=== PATIENT | male | born 1945 | race Caucasian/White ===

== ENCOUNTER → 2016-12-29 | Outpatient (CLI) | payer MEDICARE ==
[~2016-12-29] MED LIST: CPR500T PO; HYDR-3583 PO; HYDR-707 PO; METR500T PO; MINO50CA2 PO; SIMV20TA3 PO
--- OUTSIDE RECORDS SUMMARY | 2016-12-29 11:11 | XMS REPORT | Continuity of Care Document ---
Author Author [facility] Organization [facility] Address Unknown Phone Unavailable Care Team Providers Care Motion Picture Commentator Name Role Phone AYDIN HUSAIN PP Insurance Providers Payer Name Policy Number Subscriber Name Relationship s Medicare [id number] Jhony Chi Tu 01 Self / Same As Patient Advance Directives Directive Response Recorded Date Advance Directives N 04/09/13 5:45pm Health Care Power of Laboratory Immunologist N 04/09/13 5:45pm Organ Donor N 04/09/13 5:45pm Problems No Known Problems or Medical conditions. Family History History Response Recorded Date/Time Hx Family Cancer N 04/09/13 5:45pm Social History History Response Recorded Date/Time Alcohol Use Denies Use 04/09/13 5:45pm Recreational Drug Use N 04/09/13 5:45pm Recent Foreign Travel N 04/09/13 5:45pm Hospitalization with Isolation Denies 5:45pm Allergies, Adverse Reactions, Alerts Allergen Type Severity Reaction Last Updated No Known Drug Allergies 04/09/13 Medications Medication Dose Units Route Sig Qty Days Acetaminophen/Hydrocodone Bitart (Lortab 5-500 Tablet) 1 - 2 Each PO Q 4 - 6 HR PRN Simvastatin 20 Mg PO HS Minocycline Hcl 50 Mg PO HS Immunizations Name Given Type Date of Pneumonia Vaccine 09/19/12 H Response Recorded Date/Time Status not known Unknown Results Test Date Result Interp. Ref. Range Alanine Aminotransferase (ALT/SGPT) April 13, 2013 5:40am 25 U/L L 30-65 Albumin April 13, 2013 5:40am 1.8 G/DL L 3.4-5.0 Alkaline Phosphatase April 13, 2013 5:40am 76 U/L N 50-136 Aspartate Amino Transf (AST/SGOT) April 13, 2013 5:40am 29 U/L N 15-37 BUN/Creatinine Ratio April 17, 2013 5:50am 20 - Basophils # (Auto) April 10, 2013 5:05am 0.0 10^3/uL N 0.0-0.1 Basophils (%) (Auto) April 10, 2013 5:05am 0 % N 0-10 Blood Urea Nitrogen April 17, 2013 5:50am 16 MG/DL N 7-18 Calcium Level April 17, 2013 5:50am 7.8 MG /DL L 8.5-10.1 Carbon Dioxide Level April 17, 2013 5:50am 24 MMOL/L N 21-32 Chloride Level April 17, 2013 5:50am 104 MMOL/L N 101-110 Creatinine April 17, 2013 5:50am 0.8 MG/ DL N 0.6-1.3 Eosinophils # (Auto) April 10, 2013 5:05am 0.2 10^3/uL N 0.0-0.3 Eosinophils (%) (Auto) April 10, 2013 5:05am 2 % N 0-10 Glucose Level April 17, 2013 5:50am 127 MG /DL H 74-106 Hematocrit April 17, 2013 5:50am 33 % L 40-54 Hemoglobin April 17, 2013 5:50am 11.3 G/ DL L 13.3-17.7 Lymphocytes # (Auto) April 10, 2013 5:05am 2.3 X 10^3 N 1.0-4.0 Lymphocytes (%) (Auto) April 10, 2013 5:05am 27 % N 12-44 Magnesium Level April 16, 2013 5:45am 2.0 MG/DL N 1.8-2.4 Mean Corpuscular Hemoglobin April 17, 2013 5:50am 30 PG N 25-34 Mean Corpuscular Hemoglobin Concent April 17, 2013 5:50am 34 G/DL N 32-36 Mean Corpuscular Volume April 17, 2013 5:50am 87 FL N 80-99 Mean Platelet Volume April 17, 2013 5:50am 9.8 FL N 7.4-10.4 Monocytes # (Auto) April 10, 2013 5:05am 0.9 X 10^3 N 0.0-1.0 Monocytes (%) (Auto) April 10, 2013 5:05am 10 % N 0-12 Neutrophils # (Auto) April 10, 2013 5:05am 5.2 X 10^3 N 1.8-7.8 Neutrophils (%) (Auto) April 10, 2013 5:05am 61 % N 42-75 Phosphorus Level April 16, 2013 5:45am 3.1 MG/DL N 2.5-4.9 Platelet Count April 17, 2013 5:50am 214 10^3/uL N 130-400 Potassium Level April 17, 2013 5:50am 3.7 MMOL/L N 3.6-5.0 Prealbumin April 16, 2013 5:45am 13.9 MG/ DL L 18.0-35.7 Red Blood Count April 17, 2013 5:50am 3.82 10^6/uL L 4.35-5.85 Red Cell Distribution Width April 17, 2013 5:50am 14.6 % H 10.0-14.5 Sodium Level April 17, 2013 5:50am 137 MMOL/L N 135-145 Total Bilirubin April 13, 2013 5:40am 0.6 MG/DL N 0.0-1.0 Total Protein April 13, 2013 5:40am 4.8 G/ DL L 6.4-8.2 Triglycerides Level April 16, 2013 5:45am 101 MG/DL N 30.0-150.0 Urine Bacteria April 09, 2013 10:00pm NEGATIVE /HPF - Urine Bilirubin April 09, 2013 10:00pm NEGATIVE - Urine Casts April 09, 2013 10:00pm NONE / LPF - Urine Clarity April 09, 2013 10:00pm CLEAR - Urine Color April 09, 2013 10:00pm YELLOW - Urine Crystals April 09, 2013 10:00pm NONE /LPF - Urine Culture Indicated April 09, 2013 10:00pm NO - Urine Glucose (UA) April 09, 2013 10:00pm 1 + H - Urine Ketones April 09, 2013 10:00pm 3+ H - Urine Leukocyte Esterase April 09, 2013 10:00pm NEGATIVE - Urine Mucus April 09, 2013 10:00pm NEGATIVE /LPF - Urine Nitrite April 09, 2013 10:00pm NEGATIVE - Urine Protein April 09, 2013 10:00pm NEGATIVE - Urine RBC April 09, 2013 10:00pm NONE / HPF - Urine Specific [place] April 09, 2013 10:00pm 1.020 - Urine Squamous Epithelial Cells April 09, 2013 10:00pm 0-2 /HPF - Urine Urobilinogen April 09, 2013 10:00pm NORMAL MG/DL - Urine WBC April 09, 2013 10:00pm RARE / HPF - Urine pH April 09, 2013 10:00pm 5 - White Blood Count April 17, 2013 5:50am 9.2 10^3/uL N 4.3-11.0 Glucometer April 17, 2013 5:30pm 114 MG/ DL H 70-110 Estimat Glomerular Filtration Rate April 09, 2013 11:49am 60 - Urine RBC (Auto) April 09, 2013 10:00pm TRACE H - Procedures Procedure Code Date OPEN AND OTHER SIGMOIDECTOMY 45.76 VENOUS CATHETERIZATION NEC 38.93 MRSA Screen 04/11/13 Encounters Encounter Location Date/Time Admitted Inpatient [facility] 2:10pm
--- NOTE | 2016-12-29 16:54 | Diagnostic Imaging Report ---
PA and lateral views of the chest. INDICATION: Cough and shortness of breath. FINDINGS: There is prominent pericardial fat-pad on the right side. The lungs otherwise appear clear. The heart size is normal. No effusion or pneumothorax. Thickening of the anterior longitudinal ligament in the mid to lower thoracic spine seen. IMPRESSION: No acute process. Dictated by: Dictated on workstation # [id number]
== END ==
LOC: RAD 11:07
PROVIDERS: ATTEND Family Medicine
DX: R05 Cough (principal)
CPT/HCPCS: 71020

== ENCOUNTER → 2018-07-03 | Outpatient (CLI) | payer MEDICARE ==
--- NOTE | 2018-07-03 15:27 | Diagnostic Imaging Report ---
INDICATION: Chest discomfort. TIME OF EXAM: 3:24 PM Correlation is made with prior study from 12/29/2016. FINDINGS: The heart size is normal. The pulmonary vascularity is unremarkable. The lungs are clear. No infiltrate, effusion or pneumothorax is detected. IMPRESSION: No acute cardiopulmonary process is detected. Dictated by: Dictated on workstation # [id number]
== END ==
LOC: CARD 14:45
PROVIDERS: ATTEND Internal Medicine Rheumatology
DX: I20.8 Other forms of angina pectoris (principal)
CPT/HCPCS: 71046; 93005

== ENCOUNTER → 2018-08-15 | Outpatient (CLI) | payer MEDICARE, OTHER | LOC: CARD 11:09 | PROVIDERS: ATTEND Internal Medicine Interventional Cardiology | DX: R94.31 Abnormal electrocardiogram [ECG] [EKG] (principal); M19.90 Unspecified osteoarthritis, unspecified site; R07.9 Chest pain, unspecified; E66.9 Obesity, unspecified; R06.02 Shortness of breath | CPT/HCPCS: 93306 ==

== ENCOUNTER → 2018-08-22 | Outpatient (CLI) | payer MEDICARE, OTHER ==
[~2018-08-22] MED LIST changes: +ASPI-586 PO; +BETA15CR37 TP; +CATHETER FLUSH 10 ML SYR IV PRN; +FOLI1TAB24 PO; +GENTAMICIN CREAM TP; +METH2.5T PO; +NYST15CR TP; +OMG1KC PO; +REGADENOSON 0.4 MG/5 ML SYR (LEXISCAN) IV ONE
[2018-08-22 09:15] VITALS: BP 160/81
[2018-08-22 09:24] VITALS: BP 126/69
[2018-08-22 13:37] VITALS: BP 166/79
--- NOTE | 2018-08-22 13:37 | Cardiology Stress Test Report ---
Stress Test Report Type of NM Stress Test: Test Type: LEXISCAN 0.4MG/5ML Date of Procedure/Referring: Date of Procedure: Aug 22, 2018 PCP Jessica Muñiz MD Admitting Physician Deny Chilel MD Indications: Abnormal EKG, chest pain, shortness of breath Baseline Heart Rate: 68 Baseline Blood Pressure: Blood Pressure Systolic: 166 Blood Pressure Diastolic: 79 Baseline EKG: Baseline EKG: sinus rhythm Summary & Conclusion: Summary: The patient was brought to the stress lab after informed consent was taken. Stress test was performed according to the Lexiscan protocol. 0.4 mg of IV Lexiscan was given. Low-grade exercise was performed. Baseline EKG showed sinus rhythm at 68 BPM. Initial blood pressure was 166/79 mmHg. Maximum heart rate was 88 bpm and blood pressure 158/84 mmHg. Patient did not have any chest pain, arrhythmias or ST segment changes during the stress test. 10.81 mCi of Myoview were given for rest imaging and 30.6 mCi of Myoview given for stress imaging. Transient ischemic dilatation score 1.07, EF 50 percent. Normal wall motion. Large, moderate intensity anterior reversible defect. Fixed apical defect with reversible apical defect. SSS 27, SRS 9, SDS 15. Conclusion: Pharmacological stress test was negative for ischemia. Normal LV function with no wall motion abnormalities. Evidence of anterior ischemia. 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 Coronary angiography is recommended. Jessica MUÑIZ MD Aug 22, 2018 1:37 pm
== END ==
LOC: CARD 07:11
PROVIDERS: ATTEND Internal Medicine Interventional Cardiology
DX: R94.31 Abnormal electrocardiogram [ECG] [EKG] (principal); R07.9 Chest pain, unspecified; R06.02 Shortness of breath; M19.91 Primary osteoarthritis, unspecified site; E66.9 Obesity, unspecified
CPT/HCPCS: 78452; 93017

== ENCOUNTER 2018-08-26 11:53 | Day surgery (SDC) | payer MEDICARE, OTHER ==
[2018-08-26] VITALS (7 sets, daily range): BP systolic 158–169; BP diastolic 73–97
[~2018-08-26] VITALS: Ht 182.9 cm; Wt 122.0 kg
[~2018-08-26 11:53] MED LIST changes: -ASPI-586 PO; -BETA15CR37 TP; -CATHETER FLUSH 10 ML SYR IV PRN; -FOLI1TAB24 PO; -GENTAMICIN CREAM TP; -METH2.5T PO; -NYST15CR TP; -OMG1KC PO; -REGADENOSON 0.4 MG/5 ML SYR (LEXISCAN) IV ONE
[2018-08-26] MEDS ORDERED: HEParin (CATH LAB) 2,000 ML IV ONE (12:10)
[2018-08-26] MEDS ORDERED: LIDOCAINE 1% INJ 20 ML 20 ML VIAL ONE (12:10)
[2018-08-26] MEDS ORDERED: NS IV 1000 ML 1,000 ML ONE (12:10)
[2018-08-26] MEDS ORDERED: NS IV 1000 ML 1,000 ML IV SCH ×2 (13:20→15:52)
[2018-08-26 13:31] LABS: HEMOGLOBIN 12.7 G/DL (13.3-17.7); MEAN PLATELET VOLUME 9.7 FL (7.4-10.4); RED BLOOD COUNT 3.81 10^6/uL (4.35-5.85); RED CELL DISTRIBUTION WIDTH 14.4 % (10.0-14.5); WHITE BLOOD COUNT 4.8 10^3/uL (4.3-11.0)
[2018-08-26 13:33] LABS: PROTHROMBIN TIME PATIENT 13.7 SEC (12.2-14.7)
[2018-08-26] MEDS ORDERED: FLU QUADRIvalent (5+ YOA) 2018-2019 (AFLURIA) 0.5 ML IM ONE (13:45)
[2018-08-26 13:46] LABS: ALANINE AMINOTRANSFERASE 23 U/L (0-55); ALBUMIN 3.8 GM/DL (3.2-4.5); ALKALINE PHOSPHATASE 68 U/L (40-136); BILIRUBIN,TOTAL 0.8 MG/DL (0.1-1.0); BUN/CREATININE RATIO 16; CALCIUM 9.1 MG/DL (8.5-10.1); CARBON DIOXIDE 22 MMOL/L (21-32); CHLORIDE 105 MMOL/L (98-107); CREATININE SERUM 0.87 MG/DL (0.60-1.30); GFR ESTIMATED > 60; GLUCOSE 87 MG/DL (70-105); POTASSIUM 3.9 MMOL/L (3.6-5.0); SODIUM 137 MMOL/L (135-145); TOTAL PROTEIN 7.4 GM/DL (6.4-8.2)
[2018-08-26] MEDS ORDERED: FOLI1TAB24 PO (14:05)
[2018-08-26] MEDS ORDERED: OMG1KC PO (14:05)
[2018-08-26] MEDS ORDERED: BETA15CR37 TP (14:07)
[2018-08-26] MEDS ORDERED: METH2.5T PO (14:07)
[2018-08-26] MEDS ORDERED: fentaNYL INJECTION 100 MCG/2 ML AMP ONE (14:08)
[2018-08-26] MEDS ORDERED: ASPI-586 PO (14:08)
[2018-08-26] MEDS ORDERED: HEParin 1000 UNIT/ML (10ML VIAL) FOR BOLUS ONE (14:08)
[2018-08-26] MEDS ORDERED: MIDAZOLAM 5 MG/5 ML (VERSED) VIAL ONE (14:08)
[2018-08-26] MEDS ORDERED: NYST15CR TP (14:15)
[2018-08-26] MEDS ORDERED: GENTAMICIN CREAM TP (14:16)
[2018-08-26] MEDS ORDERED: VERAPAMIL 5 MG/2 ML (CALAN) VIAL IV ONE (14:23)
[2018-08-26] MEDS ORDERED: NITRO DRIP 25000 MCG/D5W 250 ML IV ONE (14:23)
--- NOTE | 2018-08-26 15:05 | Cardiac Procedure Note-CS/ASA ---
Pre-Procedure Note Pre-Op Procedure Note H&P Reviewed The H&P was reviewed, patient examined and no changes noted. Date H&P Reviewed: Aug 26, 2018 Time H&P Reviewed: 15:05 Conscious Sedation Pre-Proced Time 15:05 ASA Score 3 For ASA 3 and 4: Consider anesthesia and medical clearance. Also, for patients with a history of failed moderate sedation consider anesthesia. Airway Lungs Heart ASA score ASA 1: a normal healthy patient ASA 2: a patient with a mild systemic disease (mid diabetes, controlled hypertension, obesity ASA 3: a patient with a severe systemic disease that limits activity (angina , COPD, prior Myocardial infarction) ASA 4: a patient with an incapacitating disease that is a constant threat to life (CHF, renal failure) ASA 5: a moribund patient not expected to survive 24 hrs. (ruptured aneurysm) ASA 6: a declared brain patient whose organs are being harvested. For emergent operations, add the letter E after the classification Mallampati Classification Grade 1 Sedation Plan Analgesia, Amnesia, Plan communicated to team members, Discussed options with patient/fam, Discussed risks with patient/fam The patient is an appropriate candidate to undergo the planned procedure, sedation, and anesthesia. The patient immediately re-assessed prior to indication. Jessica PNIA MD Aug 26, 2018 3:05 pm
--- NOTE | 2018-08-26 15:51 | Coronary Angiography Report ---
Coronary Angiography Report DATE OF PROCEDURE: 08/26/18 INDICATION: Chest pain, abnormal nuclear stress test. PREOPERATIVE DIAGNOSIS: Chest pain, abnormal nuclear stress test. POSTOPERATIVE DIAGNOSIS: Severe distal left main disease, three-vessel disease. HISTORY: This is a 73-year-old gentleman who has arthritis. He presented with typical chest pain. Nuclear stress test was abnormal. Therefore, the patient was scheduled for coronary angiography. PROCEDURES PERFORMED: 1.Coronary angiography. 2.Left heart catheterization. 3. Aortic arch angiogram. COMPLICATIONS: None. SPECIMENS: None. ESTIMATED BLOOD LOSS: 10 mL ANESTHESIA: Conscious sedation ANTICOAGULATION: IV heparin CONTRAST: 109 mL. FLUOROSCOPY: 10.5 minutes. FLOUROSCOPY DOSE: 1231 mgy. PROCEDURE DETAILS: The patient is a 73 male and was brought to the laborer [facility] after informed consent was taken. All the risks and complications were explained in detail; this included the risk of bleeding, vascular damage, stroke , CO and even . The patient was draped and prepped in the usual sterile fashion. Access was gained in the right radial artery with a 6 [place] sheath. Coronary angiography and left heart catheterization was performed with the [place] catheter. However we could not engage the left coronary system due to significant tortuosity. A JL 4 catheter also did not work. We were finally able to engage with an EBU 3.5 guide catheter. FINDINGS: 1.Left main: Severe distal left main disease. Stenosis severity 99 percent. 2.LAD: Distal left main disease also includes the ostium of the LAD. Severe stenosis 90 percent and above. Moderate to diffuse disease distally. 3.Left circumflex artery: Severe ostial stenosis. Stenosis severity 95 percent. Diffuse disease distally. 4.RCA: Moderate to severe mid RCA stenosis. Stenosis severity 70-80 percent. Mild diffuse disease distally. [id number]-[id number] collaterals. 5.Left heart catheterization: LV 127/15 mmHg, aortic pressure 106/64 mmHg. LVEDP 27 mmHg. Normal LV function with no wall motion abnormalities. No gradient across the aortic valve. 6. Aortic arch angiogram: No evidence of aneurysm or dissection. Patent proximal segments of the great arteries including brachycephalic artery, left common carotid artery, left subclavian artery. CONCLUSIONS: Severe distal left main disease with three-vessel severe CAD. Normal LV function with no diabetes. CABG is recommended. I have spoken to Dr. Barraza at [facility] and will arrange for inpatient transfer. I will start the patient on IV heparin infusion. Susan Muñiz MD, FACP, FACC, [facility] Interventional Cardiology Jessica MUÑIZ MD Aug 26, 2018 3:51 pm
--- NOTE | 2018-08-26 15:59 | Cardiology Discharge Summary ---
Diagnosis/Chief Complaint Date of Admission 08/26/2018 Date of Discharge 08/26/2018 Admission Diagnosis Chest pain, abnormal nuclear stress test. Final/Discharge Diagnosis Severe distal left main disease with three-vessel severe CAD Chief Complaint/HPI Chief Complaint/HPI This is a 73-year-old gentleman who has arthritis. He presented with typical chest pain. Nuclear stress test was abnormal. Therefore, the patient was scheduled for coronary angiography. Discharge Summary Procedures Coronary angiography showed severe distal left main disease which also involved the ostia of the LAD and left circumflex artery. Stenosis severity over 95 percent. Diffuse disease noted distally in the LAD and circumflex artery. RCA has moderate to severe mid stenosis. Stenosis severity 70-80 percent. Normal LV function with mildly elevated LVEDP. Discharge Physical Examination Unremarkable. Hospital Course Unremarkable. Pending Labs Laboratory Tests 08/26/18 13:01: White Blood Count 4.8, Red Blood Count 3.81, Hemoglobin 12.7, Hematocrit 36, Mean Corpuscular Volume 94, Mean Corpuscular Hemoglobin 33, Mean Corpuscular Hemoglobin Concent 36, Red Cell Distribution Width 14.4, Platelet Count 80, Mean Platelet Volume 9.7, Prothrombin Time 13.7, INR Comment 1.0, Activated Partial Thromboplast Time 31, Sodium Level 137, Potassium Level 3.9, Chloride Level 105, Carbon Dioxide Level 22, Anion Gap 10, Blood Urea Nitrogen 14, Creatinine 0.87, Estimat Glomerular Filtration Rate > 60, BUN/Creatinine Ratio 16, Glucose Level 87, Calcium Level 9.1, Corrected Calcium 9.3, Total Bilirubin 0.8, Aspartate Amino Transf (AST/SGOT) 20, Alanine Aminotransferase (ALT/SGPT) 23, Alkaline Phosphatase 68, Total Protein 7.4, Albumin 3.8 Discussion & Recommendations Discussion CABG is recommended. I have discussed with Dr. Corwin Barraza at [facility] and will arrange an inpatient transfer; he has accepted the patient for transfer. I will start the patient on IV heparin infusion. Follow up appt.: Dr. Muñiz after CABG. Dicharge Diet: Cardiac Diet Activity as Tolerated: Yes Home Medications Reviewed patient Home Medication Reconciliation performed by pharmacy medication reconciliations voip network technician and/or nursing. Patients Allergies have been reviewed. Discharge Home Medications: Reviewed and agree with Discharge Medication list on patient's Discharge Instruction sheet Condition at discharge Stable Instructions to patient/family CABG is recommended. Inpatient transfer to [facility]. Jessica MUÑIZ MD Aug 26, 2018 3:59 pm
[2018-08-26] MEDS ORDERED: PATIENT MAY USE OWN MEDS, ALL PO SCH (16:00)
[2018-08-26] MEDS ORDERED: HEParin 1000 UNIT/ML (10ML VIAL) FOR BOLUS IV SCH (16:00)
[2018-08-26] MEDS ORDERED: HEParin DRIP 25000 UNIT/500ML 500 ML IV ONE (16:32)
[2018-08-27] MEDS ORDERED: ASPIRIN E.C. 81 MG (ECOTRIN) TAB PO SCH (09:00)
== END 2018-08-26 18:00 | disposition short-term general hospital (02) ==
LOC: CATH 11:53
PROVIDERS: ATTEND Internal Medicine Interventional Cardiology
DX: I25.10 Atherosclerotic heart disease of native coronary artery without angina pectoris (principal); R07.89 Other chest pain; Z82.49 Family history of ischemic heart disease and other diseases of the circulatory system; E66.01 Morbid (severe) obesity due to excess calories; L40.50 Arthropathic psoriasis, unspecified; R06.02 Shortness of breath
CPT/HCPCS: 36415; 80053; 85027; 85610; 85730; 87081; 93458

== ENCOUNTER 2018-09-04 11:45 | Inpatient (IN) | payer MEDICARE, OTHER ==
[~2018-09-04] VITALS: Ht 182.9 cm; Wt 118.6 kg
[~2018-09-04 11:45] MED LIST changes: +ASPI-586 PO; +BETA15CR37 TP; +FOLI1TAB24 PO; +GENTAMICIN CREAM TP; +METH2.5T PO; +NYST15CR TP; +OMG1KC PO
[2018-09-04 13:30] VITALS: BP 109/59
[2018-09-04] MEDS ORDERED: FOLIC ACID 1 MG TAB PO NR (14:30)
[2018-09-04] MEDS ORDERED: HYDROcodone/APAP 5 MG/325 MG (LORTAB) TAB PO PRN (14:30)
--- NOTE | 2018-09-04 15:31 | Occupational Therapy Eval ---
OT Evaluation-General/PLF Medical Diagnosis Admission Date Sep 04, 2018 at 13:33 Medical Diagnosis: Toxic myopathy Onset Date: Aug 26, 2018 Therapy Diagnosis Therapy Diagnosis: decr act poly, decr funct mob, weakness, decr funct use UEs Height/Weight Height (Feet): 6 Height (Inches): 0.00 Weight (Pounds): 269 Weight (Ounces): 0.0 Precautions Comments Meticulous sternal precautions. No driving. No heavy lifting or vigorous activity with arms for 8 weeks. Referral Physician: Donny Referral Reason: Evaluation/Treatment Medical History Pertinent Medical History: Atrial Fib, Arthritis, CAD, HTN Additional Medical History Inflammatory arthritis. Psoriatic arthritis. Psoriasis. Restless legs. Colectomy (colostomy reversal). Hernia repair Immunosuppressed Current History Pt admitted to ED at and transferred to [facility] in [place] for CABGx3 on . Reviewed History: Yes Social History Home: Single Level Current Living Status: Alone Entry Into Home: Stairs With Railing Steps Into Home: 3 ADL-Prior Level of Function Functional [place] Measure 0=Not Assessed/NA 4=Minimal Assistance 1=Total Assistance 5=Supervision or Setup 2=Maximal Assistance 6=Modified [place] 3=Moderate Assistance 7=Complete [place] ADL PLOF Comments Pt reported that he was able to manage all of his basic ADLs prior to admission (dressing, bathing, grooming, dressing, eating). He and his girlfriend share in home tasks such as cleaning and cooking and she sets up his medications. He said he has no issues with memory at home and she concurred. 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 He also care for her Allegra Cain. DME/Equipment: Tub/Shower OT Current Status Subjective Pt seen in room, up in transport chair, agreeable to OT. Pain rated 4.10 in incision area on chest. Appearance Alert, cooperative Mental Status/Objective Patient Orientation: Person, Place, Time, Situation Current Glasses/Contacts: Yes Hearing Aids: No Dentures/Partials: Yes (partials) Hand Dominance: Right Upper Extremity ROM Shoulder range assessed to approx 90 degrees only due to sternal precautions. Elbows and distal WFL Upper Extremity Sensation Pt reported that it feels like he has bands around his wrists Upper Extremity Strength Strength grossly 4/5 at elbows and distal bilaterally. Shoulder strength not assessed Edema: No UE edema noted ADL-Treatment ADL-Current He needed min/CGA to get up from transport chair and walk a few steps to w/c, holding cardiac pillow on chest and following sternal precautions for sitting ( not reaching back with arms). He was able to use a urinal with setup and help emptying it. He got up from w/c with min-mod assist and walked with min assist to bathroom. He stated that he took himself to the bathroom prior to discharge from [facility]. He was able to get on/off BSC over toilet with CGA. He is tall and would not have been able to get off tall toilet and would not have been able to use grab bar due to sternal precautions. He managed clothing and hygiene with CGA while standing and walked back to w/c with CGA. He declined to bathe today and said that he had already shaved. Donned shirt with min assist to pull it down and mod assist getting pants on over feet and pulling them up. Unable to do slipper socks himself. He reported no difficulty opening packages for eating and with feeding himself but said he has no appetite. Care transferred to PT. Functional [place] Measure 0=Not Assessed/NA 4=Minimal Assistance 1=Total Assistance 5=Supervision or Setup 2=Maximal Assistance 6=Modified [place] 3=Moderate Assistance 7=Complete IndependenceIRFPAI Quality Coding Scale 6 Independent with activity with or without an assistive device 5 Patient requires set up or clean up by helper. Patient completes activity by themselves 4 Supervision or touching assist (CGA). [place] provide cues , steadying assist 3 The helper provides less than half the effort to complete the activity 2 The helper provides more than half the effort to complete the activity 1 Dependent. The helper does all the effort to complete an activity 7 Patient refused to complete or attempt activity 9 The patient did not perform the activity before the current illness or injury 88 Not attempted due to Medical conditions or safety concerns Eating (FIM): 6 (Always eats with dentures in. ABle to open packages, feed himself, get a drink without assistance) Eating (QC): 6 Upper Body Dressing (FIM): 4 (Min assist to pull shirt down) Upper Body Dressing (QC): 3 Lower Body Dressing (FIM): 2 (Mod assist to get pants on over feet but he was able to pull them up over hips CGA. Unable to manage slipper socks on/off) Lower Body Dressing (QC): 2 (Help to get pants on over feet but he could pull them up, but with CGA) On/Off Footwear (QC): 1 (Unable to manage socks on/off) Toileting (FIM): 4 (CGA for clothing management and hygiene. Used BSC over toilet ) Toileting Hygiene (QC): 4 Toilet/Commode Transfer (FIM): 4 (CGA getting on/off BSC over toilet) Toilet Transfer (QC): 4 Education OT Patient Education: Instructions to caregiver, Modified ADL techniques, Purpose of tx/functional activities, Rehab process, Safety issues, Transfer techniques Teaching Recipient: Patient, Significant Other Teaching Methods: Demonstration, Discussion Response to Teaching: Verbalize Understanding, Return Demonstration, Reinforcement Needed OT Short Term Goals Short Term Goals Time Frame: Sep 11, 2018 Upper Body Dressing(FIM): 5 Lower Body Dressing(FIM): 5 Toileting(FIM): 5 Toilet/Commode Transfer(FIM): 5 Additional Short Term Goals: 1-Demonstrate ADL Tasks, 2-Verbalize Understanding , 3-ImproveStrength/Deb 1=Demonstrate adherence to instructed precautions during ADL tasks. 2=Patient will verbalize/demonstrate understanding of assistive devices/ modifications for ADL. 3=Patient will improve strength/tolerance for activity to enable patient to perform ADL's. OT Usp Goals Usp Goals Time Frame: Sep 25, 2018 Eating (FIM): 6 Eating (QC): 6 Groomin Oral Hygiene (QC): 6 Bathing(FIM): 6 Shower/Bathe Self (QC): 6 Upper Body Dressing(FIM): 6 Upper Body Dressing (QC): 6 Lower Body Dressing(FIM): 6 Lower Body Dressing (QC): 6 On/Off Footwear (QC): 6 Toileting(FIM): 6 Toileting Hygiene (QC): 6 Toilet/Commode Transfer(FIM): 6 Toilet/Commode Transfer (QC): 6 Tub Transfer(FIM): 6 Shower Transfer(FIM): 6 Additional Goals: 1-Demonstrate ADL Tasks, 2-Verbalize Understanding, 3- ImproveStrength/Deb 1=Demonstrate adherence to instructed precautions during ADL tasks. 2=Patient will verbalize/demonstrate understanding of assistive devices/ modifications for ADL. 3=Patient will improve strength/tolerance for activity to enable patient to perform ADL's. OT Education/Plan Problem List/Assessment Assessment: Decreased Activ Tolerance, Decreased UE Strength, Dependent Transfers, Impaired Self-Care Skills, Restricted Funct UE ROM Pt would benefit from skilled oT to increase his independence in basic self care to allow him to safely return to his home after cardiac surgery Discharge Recommendations Plan/Recommendations: Continue POC Therapy D/C Recommendations: Home w/ Family Support, Occupational Therapy Home Care Treatment Plan/Plan of Care Treatment,Training & Education: Yes Patient would benefit from OT for education, treatment and training to promote independence in ADL's, mobility, safety and/or upper extremity function for ADL' s. Plan of Care: ADL Retraining, Functional Mobility, Group Exercise/Act as Ind ( education, exercise, activity tolerance, functional activities, socialization), UE Funct Exercise/Act, UE Neuromus Re-Ed/Coord, OTHER (energy conservation educaiton) Treatment Duration: Sep 25, 2018 Frequency: At least 5 of 7 days/Wk (IRF) Estimated Hrs Per Day: 1.5 hours per day Agreement: Yes Rehab Potential: Good Time/GCodes Start Time: 13:30 Stop Time: 14:40 Total Time Billed (hr/min): 70 Billed Treatment Time visit, 15 minutes evaluation moderate intensity, 55 minutes ADL JENNIFER JACK OT Sep 04, 2018 15:31
--- NOTE | 2018-09-04 15:41 | Physical Therapy Evaluation ---
PT Evaluation-General Medical Diagnosis Admission Date Sep 04, 2018 at 13:33 Medical Diagnosis: Toxic myopathy Onset Date: Aug 26, 2018 Therapy Diagnosis Therapy Diagnosis: impaired mobility, endurance Height/Weight Height (Feet): 6 Height (Inches): 0.00 Weight (Pounds): 269 Weight (Ounces): 0.0 Referral Physician: Donny Reason for Referral: Evaluation/Treatment Medical History Pertinent Medical History: Arthritis, CAD, HTN Additional Medical History colectomy Reviewed History: Yes Social History Home: Single Level Current Living Status: Significant Other Entry Into Home: Stairs With Railing PT Steps Into Home: 3 Prior/Core FIM Prior Level of Function Functional [place] Measure 0=Not Assessed/NA 4=Minimal Assistance 1=Total Assistance 5=Supervision or Setup 2=Maximal Assistance 6=Modified [place] 3=Moderate Assistance 7=Complete IndependenceIRFPAI Quality Coding Scale 6 Independent with activity with or without an assistive device 5 Patient requires set up or clean up by helper. Patient completes activity by themselves 4 Supervision or touching assist (CGA). [place] provide cues , steadying assist 3 The helper provides less than half the effort to complete the activity 2 The helper provides more than half the effort to complete the activity 1 Dependent. The helper does all the effort to complete an activity 7 Patient refused to complete or attempt activity 9 The patient did not perform the activity before the current illness or injury 88 Not attempted due to Medical conditions or safety concerns Bed Mobility: 7 Transfers (B,C,W/C) (FIM): 7 Gait: 7 PT Evaluation-Current Subjective Patient in recliner pre tx, agrees to PT, no complaints of pain at rest. Patient is aware of and compliant with chest precautions. Pt/Family Goals to be independent at home Objective Patient Orientation: Person, Place, Situation ROM/Strength ROM Lower Extremities WNL Strenght Lower Extremities hip flexion 4/5 bilaterally, 5/5 gross with all other movements Neuromuscular (Tone, Coordination, Reflexes) NT Sensory Vision: Functional Hearing: Functional Sensation Right Lower Extremit: Intact Sensation Left Lower Extremity: Intact Transfers Functional [place] Measure 0=Not Assessed/NA 4=Minimal Assistance 1=Total Assistance 5=Supervision or Setup 2=Maximal Assistance 6=Modified [place] 3=Moderate Assistance 7=Complete IndependenceIRFPAI Quality Coding Scale 6 Independent with activity with or without an assistive device 5 Patient requires set up or clean up by helper. Patient completes activity by themselves 4 Supervision or touching assist (CGA). [place] provide cues , steadying assist 3 The helper provides less than half the effort to complete the activity 2 The helper provides more than half the effort to complete the activity 1 Dependent. The helper does all the effort to complete an activity 7 Patient refused to complete or attempt activity 9 The patient did not perform the activity before the current illness or injury 88 Not attempted due to Medical conditions or safety concerns Transfers (B, C, W/C) (FIM): 2 Scootin Rollin Roll Left to Right (QC): 2 Supine to/from Sit: 2 Sit to/from Stand: 4 bed t/f WC(FIM only if WC use): 4 Sit to Lying (QC): 2 Lying to Sitting/Side of Bed(Q: 2 Sit to Stand (QC): 4 Chair/Gju-od-Clhqy Xfer(QC): 4 Car Transfer (QC): 4 Patient performs bed mobility with max assist, sit to stand with CGA, transfers with CGA, car transfer with CGA. Patient is compliant with chest precautions and uses pillow on chest when standing or sitting. Gait Does the Patient Walk?: Yes Mode of Locomotion: Walk Anticipated Mode of Locomotion: Walk Gait (FIM): 2 Walk 10 feet (QC): 4 Walk 50 ft with 2 Turns(QC): 4 Distance: 50', 100' Gait Level of Assist: 4 Gait Persons Needed: 1 Gait Assistive Device: FWW Comments/Gait Description Patient ambulated 100' with CGA using a rolling walker (including 50' with at least 2 turns of 90 degrees and 10' over an uneven surface). Patient ambulates slowly but steady, gets SOB quickly and needs frequent rest breaks. Wheelchair Training Does the Pt Use a Wheelchair?: No Stairs Stairs (FIM): 1 #of Steps: 1 Level of Assist: 4 1 Step (curb) (QC): 4 Assistive Device: Walker Patient went up and down 1 step using a rolling walker with CGA. Balance Sitting Static: Normal Sitting Dynamic: Normal Standing Static: Normal Standing Dynamic: Normal Assessment/Needs Patient experienced one instance of chest tightness after sitting after ambulation and he stated once that he had some blurriness in his right eye. Both resolved after resting. After the blurriness his BP was checked and it was 115/53 and again a few minutes later was 116/55. His O2 was 99% and HR was 83bpm. Patient in therapy gym post tx to continue with PT with another therapist. Rehab Potential: Fair PT Short Term Goals Short Term Goals Time Frame: Sep 11, 2018 Transfers (B,C,W/C) (FIM): 4 Gait (FIM): 4 Gait Distance Comment: 150' Gait Level of Assist: 4 Gait Assistive Device: FWW PT Group Home Goals Group Home Goals PT Group Home Goals Time Frame: Sep 25, 2018 Transfers (B,C,W/C) (FIM): 5 Sit to Lying (QC): 4 Lying-Sitting on Side/Bed(QC): 4 Sit to Stand (QC): 4 Rollin Roll Left to Right (QC): 4 Chair/Das-vf-Wkjnn Xfer(QC): 4 Car Transfer (QC): 4 Gait (FIM): 5 Distance: 200' Walk 10 feet (QC): 4 Walk 10ft-Uneven Surface(QC): 4 Walk 50ft with 2 Turns (QC): 4 Walk 150 ft (QC): 4 Gait Level of Assist: 5 Gait Assistive Device: FWW Stairs (FIM): 2 # of Steps: 4 1 Step (curb) (QC): 4 4 Steps (QC): 4 Stairs Level Of Assist: 4 PT Plan Problem List Problem List: Activity Tolerance, Functional Strength, Safety, Balance, Gait, Transfer, Bed Mobility, ROM Treatment/Plan Treatment Plan: Continue Plan of Care Treatment Plan: Bed Mobility, Concurrent Therapy, Education, Functional Activity Deb, Functional Strength, Group Therapy, Gait, Safety, Therapeutic Exercise, Transfers Treatment Duration: Sep 25, 2018 Frequency: At least 5 of 7 days/Wk (IRF) Estimated Hrs Per Day: 1.5 hours per day Patient and/or Family Agrees t: Yes Safety Risks/Education Patient Education: Gait Training, Transfer Techniques, Steps, Reviewed Precautions, Correct Positioning, Safety Issues Teaching Recipient: Patient Teaching Methods: Demonstration, Discussion Response to Teaching: Reinforcement Needed Discharge Recommendations Therapy D/C Recommendations: Home w/ Family Support Time/GCodes Time In: 1440 Time Out: 1535 Total Billed Treatment Time: 55 Total Billed Treatment 1 visit EVM 30' FA 25' SHARON GONZALEZ PT Sep 04, 2018 15:41
--- NOTE | 2018-09-04 16:14 | PM&R Post Admission Assessment ---
Post Admission Physician Asses Date seen by provider: Sep 04, 2018 Time seen by provider: 15:00 The preadmission screen agrees with the post admission assessment that the patient is a good candidate for inpatient rehabilitation. The patient will have a comprehensive program of inpatient rehabilitation with a goal of maximizing level of functional independence prior to discharge home with SO. The patient will have PT/OT ninety minutes per day, each discipline, five days a week for 2 weeks forgait, strengthening, conditioning, balance, ADLs , any patient/family/caregiver training as necessary. Speech therapy to do cognitive assessment and treat as indicated. Rehabilitation nursing to assist with bowel, bladder, skin, wound care, medication administration, pain management. Structural Steel Detailer to assist with discharge planning, community reentry. SCD's for DVT prophylaxis. He appears to be well motivated to participate in three hours of therapy a day. He should be able to tolerate three hours of therapy a day from a medical and surgical standpoint. He should benefit from the three hours of therapy a day. He has a reasonable discharge plan, reasonable discharge rehabilitation goals and a supportive family. He has various comorbidities that need to be closely monitored with medications and treatments adjusted on a daily basis as needed. These include: Inflammatory arthritis CAD Psoriatic arthritis Barriers to discharge for this patient who had been independent prior to this are for him to be modified independent to supervision for ADLs and mobility skills prior to discharge home with SO, so as to lessen the burden of the caregivers. Risks for this patient include: 1. Fall 2. Fracture 3. DVT 4. Pulmonary embolism 5. Wound infection 6. Skin breakdown 7. Contractures 8. Poorly controlled pain 9. Urinary retention 10. UTI 11. Respiratory infection 12. Aspiration 13. recurrent angina [facility] code 09 etiologic DX Coronary atherosclerosis Estimated Length of Stay: 14 days Prognosis: Rehab prognosis appears good for goal of discharge home with SO modified independent to supervision for ADLs and mobility skills. Date Identified: Sep 04, 2018 Time Identified: 15:00 Action Plan to Resolve CSMI: Transfer meds from OSH rviewed General: Alert, Oriented X3, Cooperative, No Acute Distress HEENT: Atraumatic, PERRLA, EOMI, Mucous Memb Moist/[place] Neck: Supple, No JVD Lungs: Clear to Auscultation Heart: Regular Rate Abdomen: Normal Bowel Sounds, Soft, No Tenderness Extremities: No Edema Skin: Other (Sternotomy site healing well Plus psoriatic rash) Neuro: Other ( Strength BU limbs 4/5 Hip flex 4/5 distal 5/5) ИРИНА CHERRY MD Sep 04, 2018 16:14
--- NOTE | 2018-09-04 16:25 | Physical Therapy Daily Note ---
PT Daily Note-Current Subjective Pt sitting at EOM with PT upon arrival. Pt agrees to continue PT with DATABASE SPECIALIST. Pt reports feeling fatigued but DATABASE SPECIALIST advises per diagnosis rest breaks will be given as needed. Pain Numeric Pain Scale: 5-Moderate Pain Location Body Site: Chest Pain Description: Ache, Tightness Mental Status Patient Orientation: Person, Place, Time, Situation Attachments: Other-See Comments (Heart Pillow as needed for transfers) Transfers Functional [place] Measure 0=Not Assessed/NA 4=Minimal Assistance 1=Total Assistance 5=Supervision or Setup 2=Maximal Assistance 6=Modified [place] 3=Moderate Assistance 7=Complete IndependenceIRFPAI Quality Coding Scale 6 Independent with activity with or without an assistive device 5 Patient requires set up or clean up by helper. Patient completes activity by themselves 4 Supervision or touching assist (CGA). [place] provide cues , steadying assist 3 The helper provides less than half the effort to complete the activity 2 The helper provides more than half the effort to complete the activity 1 Dependent. The helper does all the effort to complete an activity 7 Patient refused to complete or attempt activity 9 The patient did not perform the activity before the current illness or injury 88 Not attempted due to Medical conditions or safety concerns Supine to/from Sit: 2 (3) Sit to/from Stand: 4 Sit to Lying (QC): 2 Sit to Stand (QC): 4 Weight Bearing Right Lower Extremity: Right Full Weight Bearing Left Lower Extremity: Left Full Weight Bearing Gait Training Does the Patient Walk?: Yes Distance (FIM): 2=953-82 ft Distance: 100' Walk 10 feet (QC): 4 Walk 50 ft with 2 Turns(QC): 4 Gait Level of Assist: 4 Gait Persons Needed: 1 Gait Assistive Device: FWW Pt walks with slow tara, stiff posture. Pt reports feeling very fatigued by end of tx. Exercises Seated Therapy Exercises: Sit to stand Seated Reps: 5 Standing: Heel/toe raises, Mini squats Standing Reps: 10 NuStep Minutes: 2 NuStep Workload: 2 Treatments Pt transfers from seated position using Heart pillow for comfort on chest. Pt completed Standing Ex in //bars with rest breaks as needed. Pt also completes Sit to Stands. Pt attempts NuStep but reports feeling too fatigued at this point to continue. After rest break, pt transfers and ambulates to room to rest Supine in bed. Pt transfers at Mod-Max A to lift BLE into bed due to fatigue. Pt has all needs met and ST arrives for tx. Assessment Current Status: Fair Progress Pt fatigues easily and reports chest discomfort during tx. PT Short Term Goals Short Term Goals Time Frame: Sep 11, 2018 Transfers (B,C,W/C) (FIM): 4 Gait (FIM): 4 Gait Distance Comment: 150' Gait Level of Assist: 4 Gait Assistive Device: FWW PT Detention Goals Muck Miner Blasting Goals PT Detention Goals Time Frame: Sep 25, 2018 Transfers (B,C,W/C) (FIM): 5 Sit to Lying (QC): 4 Lying-Sitting on Side/Bed(QC): 4 Sit to Stand (QC): 4 Rollin Roll Left to Right (QC): 4 Chair/Ivg-bt-Bxjwf Xfer(QC): 4 Car Transfer (QC): 4 Gait (FIM): 5 Distance: 200' Walk 10 feet (QC): 4 Walk 10ft-Uneven Surface(QC): 4 Walk 50ft with 2 Turns (QC): 4 Walk 150 ft (QC): 4 Gait Level of Assist: 5 Gait Assistive Device: FWW Stairs (FIM): 2 # of Steps: 4 1 Step (curb) (QC): 4 4 Steps (QC): 4 Stairs Level Of Assist: 4 PT Plan Problem List Problem List: Activity Tolerance, Functional Strength, Safety, Balance, Gait, Transfer, Bed Mobility Treatment/Plan Treatment Plan: Continue Plan of Care Treatment Plan: Bed Mobility, Concurrent Therapy, Education, Functional Activity Deb, Functional Strength, Group Therapy, Gait, Safety, Therapeutic Exercise, Transfers Treatment Duration: Sep 25, 2018 Frequency: At least 5 of 7 days/Wk (IRF) Estimated Hrs Per Day: 1.5 hours per day Patient and/or Family Agrees t: Yes Safety Risks/Education Patient Education: Gait Training, Transfer Techniques, Correct Positioning, Safety Issues Teaching Recipient: Patient Teaching Methods: Discussion Response to Teaching: Verbalize Understanding Time/GCodes Time In: 1535 Time Out: 1610 Total Billed Treatment Time: 35 Total Billed Treatment 1, EX (20m) & GT (15m) G Codes Necessary: SEKOU Bruno DATABASE SPECIALIST Sep 04, 2018 16:25
[2018-09-04 17:17] VITALS: BP 147/70
--- NOTE | 2018-09-04 17:49 | HISTORY AND PHYSICAL ---
DATE OF SERVICE: 09/04/2018 CHIEF COMPLAINT: Weakness in legs. HISTORY OF PRESENT ILLNESS: The patient is a 73-year-old male, who lives in [place], [place] with significant other. After being seen at [facility] by Cardiology regarding angina, he underwent coronary catheterization with Dr. Muñiz that showed a critical left main coronary stenosis. The patient was transferred to [facility] Dr. Barraza service for consideration for bypass surgery given his significant immunosuppressive drugs, which he was taking for seborrheic dermatitis and inflammatory arthritis. It was felt that he was a high risk for sternal wound infection complications. He had attempted left main stenting, but this was unsuccessful. He ultimately underwent CABG. He had next episode of paroxysmal atrial fibrillation, which was easily controlled with oral amiodarone. The patient declined in his functional dependence and was referred to inpatient rehabilitation unit for ongoing care and therapy. Dr. Hines discussed case with Dr. Barraza today by phone. His PCP is Dr. Deny Chilel. Currently, he is min assist for transfers and gait with a front wheel walker. He had been independent prior to this. He is modified independent for eating, mod assist for upper body dressing, max assist for lower body dressing, min assist for toileting hygiene. PAST MEDICAL HISTORY: He sees a environmental assistant at [facility] in [place], [place]; coronary artery disease, seborrheic dermatitis, inflammatory arthritis. His methotrexate is on hold as well as his Humira pen subcu. PAST SURGICAL HISTORY: As per above. ALLERGIES: No medication allergies. FAMILY HISTORY: Noncontributory. 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 REVIEW OF SYSTEMS: A 10-point review of systems is significant for weakness, easy fatigue and rash.He takes Tylenol PM for sleep and c/o constipation MEDICATIONS: 1. Amiodarone 200 mg p.o. b.i.d. 2. ASA 81 mg p.o. daily. 3. Lipitor 40 mg p.o. at bedtime. 4. Plavix 75 mg p.o. daily. 5. Hydrocodone APAP 5/325 1 to 2 tablets p.o. q.4 hours as needed for pain. 6. Lisinopril 10 mg p.o. daily. 7. Metoprolol 25 mg p.o. daily. 8. Diprosone apply to affected area b.i.d. in cream form. 9. Layla 60 mg p.o. b.i.d. 10. Folic acid 1 mg p.o. daily. 11. Garamycin, apply to affected area b.i.d. 12. Nystatin, apply liberally to groin b.i.d. PHYSICAL EXAMINATION: GENERAL: Significant for a pleasant male appearing his stated age, alert and oriented, in no acute distress. VITAL SIGNS: Blood pressure 109/59, respirations 20, pulse 79, he is afebrile, O2 sat 98% on room air. HEENT: Vision, speech, hearing grossly intact. No oral lesion is noted. NECK: Supple without mass. HEART: Regular rhythm. CHEST: Clear. Sternotomy site clean, dry and intact, healing well, no drainage. ABDOMEN: Soft, nontender. Bowel sounds present. EXTREMITIES: Trace edema in both ankles, no calf tenderness. SKIN: He has a rash/lesions on limbs, consistent with seborrheic dermatitis. MUSCULOSKELETAL: He has functional active range of motion in all 4 limbs. NEUROLOGIC: Sensation is grossly intact to touch. Cognition grossly intact. Strength in lower limbs hip flexion 4/5, 5/5 distally, strength is 4/5 distally in upper limbs andshoulders with Range to 90 degrees due to sternotomy precuations. He has functional active range of motion. No formal manual muscle testing done at shoulders due to sternotomy precautions. He is right hand dominant. IMPRESSION: 1. General debilitation, status post CABG for coronary artery disease. 2. Immunosuppression, currently off Humira and methotrexate. 3. Seborrheic dermatitis. 4. Inflammatory arthritis. 5. Skin rash. 6. Postoperative paroxysmal atrial fibrillation, on amiodarone. 7.Postop constipation 8. Insomnia PLAN: The patient will have a comprehensive program of inpatient rehabilitation with goal of maximizing level of functional independence prior to discharge home with significant other. The patient will be seen by PT and OT 90 minutes per day each discipline 5 days a week for 2 weeks with goals of the patient going home on modified independent to supervision for ADLs and mobility skills. Please see post-admission physician evaluation, which is a separate document for details of plan of care. Speech therapy to do cognitive assessment and treat as indicated. Rehabilitation nursing to assist with bowel, bladder, skin, wound care, medication administration, skin care, pain management. coordinator of library services to assist with discharge planning, community reentry. Follow up with Dr. Muñiz, Cardiology and PCP, Dr. Deny Chilel as per their schedule. ESTIMATED LENGTH OF STAY: 10 to 14 days. PROGNOSIS: Rehab prognosis appears good for goal of discharging home with significant other at Modified independent to supervision level for ADLs and mobility skills. DIET: Regular. CODE STATUS: Full code. Job ID: [id number] DocumentID: [id number] Dictated Date: 09/04/2018 16:26:47 Redeye Gunner Date: 09/04/2018 17:48:53 Dictated By: ИРИНА HINES MD MTDD
[2018-09-04] MEDS ORDERED: FLU QUADRIvalent (5+ YOA) 2018-2019 (AFLURIA) 0.5 ML IM ONE (18:00)
[2018-09-04] MEDS ORDERED: MILK OF MAGNESIA 400 MG/5 ML 30 ML UDC PO PRN (18:45)
[2018-09-04] MEDS ORDERED: SENNA W/DOCUSATE (SENOKOT S) TABLET PO PRN (18:45)
[2018-09-04 20:50] VITALS: BP 117/53
[2018-09-04] MEDS: ATORVASTATIN 40 MG (LIPITOR) TABLET PO SCH (20:58)
[2018-09-04] MEDS: AMIODARONE 200 MG (CORDARONE) TAB PO SCH (20:59)
[2018-09-04] MEDS: LORATADINE (CLARITIN) 10 MG TAB PO SCH (20:59)
[2018-09-04] MEDS: diphenhydrAMINE 25 MG TAB (BENADRYL) PO PRN (20:59)
[2018-09-04] MEDS: BETAMETHASONE DIPRO (AUGMENTED) 0.05% CREAM 15 GM TOP SCH (21:05)
[2018-09-04] MEDS: NYSTATIN CREAM (MYCOSTATIN) 30 GM TUBE TP SCH (21:05)
[2018-09-05] MEDS: ACETAMINOPHEN 325 MG TABLET PO PRN ×2 (03:24→20:59)
[2018-09-05 05:04] VITALS: BP 154/78
[2018-09-05] MEDS: FOLIC ACID 1 MG TAB PO SCH (06:19)
[2018-09-05 08:24] VITALS: BP 104/48
[2018-09-05] MEDS: ASPIRIN E.C. 81 MG (ECOTRIN) TAB PO SCH (08:30)
[2018-09-05] MEDS: AMIODARONE 200 MG (CORDARONE) TAB PO SCH ×2 (08:30→20:58)
[2018-09-05] MEDS: LORATADINE (CLARITIN) 10 MG TAB PO SCH ×2 (08:30→20:58)
[2018-09-05] MEDS: lisINopril 10 MG (PRINIVIL) TABLET PO SCH (08:30)
[2018-09-05] MEDS: CLOPIDOGREL 75 MG (PLAVIX) TABLET PO SCH (08:31)
--- NOTE | 2018-09-05 08:59 | ST Cognitive Linguistic Eval ---
Speech Evaluation-General Medical Diagnosis Toxic myopathy Onset Date: Aug 26, 2018 Therapy Diagnosis Therapy Diagnosis: Cognition Precautions Precautions/Isolations: Fall Prevention, Standard Precautions Referral Referring Physician: Dr. Hines Reason for Referral: Evaluation/Treatment Medical History Pertinent Medical History: Atrial Fib, Arthritis, CAD, HTN Current History Open heart surgery Reviewed History: Yes Social History Current Living Status: Alone Speech PLF-Current Status Prior Level of Function Pt was independent Subjective Pt in bed. Pleasant and cooperative. Pain Numeric Pain Scale: 0-No Pain Language Eval: Auditory Comprehends Simple Yes/No Ques: Functional Follows 1-Step Commands: Functional Follows Complex Directions: Functional Follows General Conversations: Functional Language Eval: Verbal Language Completes Spontaneous Greeting: Functional Produces Auto, Serial Info: Functional Word Finding: Functional Requests Basic Needs: Functional States Basic Personal Info: Functional Expresses Complex Ideas: Functional Language Evaluation: Reading NT Objective Cognitive Domain Attention: WNL Memory: WNL Problem Solving: Functional Objective Results [facility] Cognitive/Communication Assessment was administered to assess cognitive -linguistic functioning. Results are as follows: Orientation - pt oriented x 3 Memory - 3 word recall was 3/3 correct for immediate, delayed and remote delay. Sequencing/Organization - Pt was 4/4 correct Problem Solving - Simple was 4/4 correct; Abstract/complex was 1/2 correct and Comparisons was 4/5 correct. Speech/language - WNL Oral Motor/Speech Production WNL Impression Functional cognitive-linguistic skills. Communication/Social Cognition Comprehension: 7 Expression: 7 Social Interaction: 7 Problem Solvin Memory: 7 Speech Patient Assess Expression of Ideas/Wants: Expression (4) Understanding Verbal Content: Understands (4) Brief Interview-Mental Status: Yes Repetition of Three Words: Three (3) Temporal Orientation: Year: Correct (3) Temporal Orientation: Month: Accurate within 5 days(2) Temporal Orientation: Day: Correct (1) Recall : Wear to say "Sock": Yes, no cue required (2) Recall : Color: Yes, no cue required (2) Recall : Bed: Yes, no cue required (2) Speech Short Term Goals Short Term Goals Short Term Goals no goals established as skilled ST not indicated Speech Assisted Goals Lay Health Advocate Goals no LTGs established as skilled ST not indicated Speech-Plan Patient/Family Goals Patient/Family Goals: to return home Treatment Plan Speech Therapy Treatment Plan: Discontinue ST skilled ST not indicated Frequency: Modified Program (IRF) (0) Estimated Hrs Per Day: Other (0) Rehab Potential: Good Pt/Family Agrees to Plan: Yes Safety Risks/Education Teaching Recipient: Patient Teaching Methods: Discussion Response to Teaching: Verbalize Understanding Time Speech Therapy Time In: 16:15 Speech Therapy Time Out: 16:40 Total Billed Time: 25 Billed Treatment Time 1, SPSNDCOMP No This note was meant for date 09/04/2018 BERNAEB DOHERTY Sep 05, 2018 08:59
[2018-09-05 09:00] VITALS: BP 126/66
[2018-09-05] MEDS: GENTAMICIN 0.1% TOP SCH ×2 (09:00→21:02)
[2018-09-05] MEDS: BETAMETHASONE DIPRO (AUGMENTED) 0.05% CREAM 15 GM TOP SCH ×2 (09:00→21:01)
[2018-09-05] MEDS ORDERED: GENT15CR6 TP (09:45)
[2018-09-05] MEDS ORDERED: FEXO-45 PO (09:45)
[2018-09-05] MEDS ORDERED: NYST15CR TP (09:45)
[2018-09-05] MEDS ORDERED: BETA15CR4 TP (09:45)
[2018-09-05] MEDS ORDERED: ADAL40PE5 SQ (09:46)
--- NOTE | 2018-09-05 11:04 | Physical Therapy Daily Note ---
PT Daily Note-Current Subjective Pt standing up with Nurse on way to restroom upon arrival. Pt agrees to PT and CARPENTERS SUPERVISOR assists pt to restroom. Pain Numeric Pain Scale: 5-Moderate Pain Location Body Site: Chest Pain Description: Ache Mental Status Patient Orientation: Person, Place, Time, Situation Attachments: Other-See Comments (Pt has Heart pillow for comfort during transfers) Transfers Functional [place] Measure 0=Not Assessed/NA 4=Minimal Assistance 1=Total Assistance 5=Supervision or Setup 2=Maximal Assistance 6=Modified [place] 3=Moderate Assistance 7=Complete IndependenceIRFPAI Quality Coding Scale 6 Independent with activity with or without an assistive device 5 Patient requires set up or clean up by helper. Patient completes activity by themselves 4 Supervision or touching assist (CGA). [place] provide cues , steadying assist 3 The helper provides less than half the effort to complete the activity 2 The helper provides more than half the effort to complete the activity 1 Dependent. The helper does all the effort to complete an activity 7 Patient refused to complete or attempt activity 9 The patient did not perform the activity before the current illness or injury 88 Not attempted due to Medical conditions or safety concerns Scootin Rollin Supine to/from Sit: 3 Sit to/from Stand: 5 Sit to Lying (QC): 3 Sit to Stand (QC): 5 Weight Bearing Right Lower Extremity: Right Full Weight Bearing Left Lower Extremity: Left Full Weight Bearing Gait Training Does the Patient Walk?: Yes Distance (FIM): 3=150 ft Distance: 200' Walk 10 feet (QC): 5 Walk 50 ft with 2 Turns(QC): 5 Walk 150 ft (QC): 5 Gait Level of Assist: 5 Gait Persons Needed: 1 Gait Assistive Device: FWW Pt fatigues due to SOA and needs rest breaks occasionally to caught his breathe. Wheelchair Training Does the Pt Use a Wheelchair?: No Treatments Pt ambulates to restroom using FWW with pillow taken to hold to chest during transfers. Pt has vitals taken and is given meds before leaving room for tx. Pt ambulates in hallway using FWW at SBA. Pt takes rest as needed. Pt completes transfers from sit to water taxi captain chair during ambulation. Pt returns to room to rest at end of tx. Pt transfers to Supine in bed at [facility]. Pt resting at end of tx with all needs met. Assessment Current Status: Good Progress Pt ccontinues to push self but know he has Cardiac precautions to be aware of and what his limit is. PT Short Term Goals Short Term Goals Time Frame: Sep 11, 2018 Transfers (B,C,W/C) (FIM): 4 Gait (FIM): 4 Gait Distance Comment: 150' Gait Level of Assist: 4 Gait Assistive Device: FWW PT Detention Goals Websphere Architect Goals PT Websphere Architect Goals Time Frame: Sep 25, 2018 Transfers (B,C,W/C) (FIM): 5 Sit to Lying (QC): 4 Lying-Sitting on Side/Bed(QC): 4 Sit to Stand (QC): 4 Rollin Roll Left to Right (QC): 4 Chair/[id number]-Vyccb Xfer(QC): 4 Car Transfer (QC): 4 Gait (FIM): 5 Distance: 200' Walk 10 feet (QC): 4 Walk 10ft-Uneven Surface(QC): 4 Walk 50ft with 2 Turns (QC): 4 Walk 150 ft (QC): 4 Gait Level of Assist: 5 Gait Assistive Device: FWW Stairs (FIM): 2 # of Steps: 4 1 Step (curb) (QC): 4 4 Steps (QC): 4 Stairs Level Of Assist: 4 PT Plan Problem List Problem List: Activity Tolerance, Functional Strength, Safety, Gait Treatment/Plan Treatment Plan: Continue Plan of Care Treatment Plan: Bed Mobility, Concurrent Therapy, Education, Functional Activity Deb, Functional Strength, Group Therapy, Gait, Safety, Therapeutic Exercise, Transfers Treatment Duration: Sep 25, 2018 Frequency: At least 5 of 7 days/Wk (IRF) Estimated Hrs Per Day: 1.5 hours per day Patient and/or Family Agrees t: Yes Safety Risks/Education Patient Education: Gait Training, Transfer Techniques, Correct Positioning, Safety Issues Teaching Recipient: Patient Teaching Methods: Discussion Response to Teaching: Verbalize Understanding Time/GCodes Time In: 800 Time Out: 845 Total Billed Treatment Time: 45 Total Billed Treatment 1, FA x2 (30m) & GT (15m) G Codes Necessary: SEKOU Bruno CARPENTERS SUPERVISOR Sep 05, 2018 11:04
[2018-09-05] MEDS: NYSTATIN CREAM (MYCOSTATIN) 30 GM TUBE TP SCH ×2 (11:17→21:01)
--- NOTE | 2018-09-05 13:33 | Occupational Ther Daily Note ---
OT Current Status-Daily Note Subjective Pt seen in room, up in bed, agreeable to OT. Waned to shower this morning. No pain mentioned but he periodic pain throughout ADLs when he moved arms "the wrong way" Appearance Alert, cooperative Mental Status/Objective Functional [place] Measure 0=Not Assessed/NA 4=Minimal Assistance 1=Total Assistance 5=Supervision or Setup 2=Maximal Assistance 6=Modified [place] 3=Moderate Assistance 7=Complete [place] ADL-Treatment Supine to sit with SBA, with some effort. Sit to stand with SBA from EOB, bed elevated, SBA. Walked with SBA, FWW to bathroom and was able to get on/off tall toilet with SBA, using grab bar.He preferred toilet to BSC. Grooming setup to wash face and hands. He was able to undress but had some difficulty getting pants and socks over feet due to stomach size and decreased activity tolerance when bending forward. He walked to shower and got in/out of shower stall and on/ off shower bench with SBA and pt education for transfer technique. He washed and dried all parts using shower bench, grab bars, hand held shower but with CGA for standing. He walked to bed to complete dressing SBA, FWW and was able to get shirt on with setup and cues to pull it down in back and min assist with lower body dressing. Pulling shirt down was uncomfortable and he reported it pulled his R collar bone. He needed help getting both legs into bed. Pt required frequent recovery breaks throughout ADLs. Pt left up in bed, 4 rails up , all needs met. Functional [place] Measure 0=Not Assessed/NA 4=Minimal Assistance 1=Total Assistance 5=Supervision or Setup 2=Maximal Assistance 6=Modified [place] 3=Moderate Assistance 7=Complete IndependenceIRFPAI Quality Coding Scale 6 Independent with activity with or without an assistive device 5 Patient requires set up or clean up by helper. Patient completes activity by themselves 4 Supervision or touching assist (CGA). [place] provide cues , steadying assist 3 The helper provides less than half the effort to complete the activity 2 The helper provides more than half the effort to complete the activity 1 Dependent. The helper does all the effort to complete an activity 7 Patient refused to complete or attempt activity 9 The patient did not perform the activity before the current illness or injury 88 Not attempted due to Medical conditions or safety concerns Grooming (FIM): 5 (setup to wash face and hands in shower. ) Oral Hygiene (QC): 5 Bathing (FIM): 4 (Washed and dried all parts except back. CGA when standing to dry bottom. Shower bench, grab bars,hand held shower. Some difficulty reaching feet) Upper Body (FIM): 5 Upper Body Dressing (QC): 5 Lower Body Dressing (FIM): 4 Lower Body Dressing (QC): 4 (CGA) Toileting (FIM): 5 (SBA to manage clothing and hygiene) Toileting Hygiene (QC): 4 (SBA) Toilet/Commode Transfer (FIM): 5 Toilet Transfer (QC): 4 (SBA) Education OT Patient Education: Modified ADL techniques, Progress toward Goal/Update tx plan, Purpose of tx/functional activities, Safety issues, Transfer techniques Teaching Recipient: Patient OT Short Term Goals Short Term Goals Time Frame: Sep 11, 2018 Upper Body Dressing(FIM): 5 Lower Body Dressing(FIM): 5 Toileting(FIM): 5 Transfers (B,C,W/C) (FIM): 4 Toilet/Commode Transfer(FIM): 5 Additional Short Term Goals: 1-Demonstrate ADL Tasks, 2-Verbalize Understanding , 3-ImproveStrength/Deb 1=Demonstrate adherence to instructed precautions during ADL tasks. 2=Patient will verbalize/demonstrate understanding of assistive devices/ modifications for ADL. 3=Patient will improve strength/tolerance for activity to enable patient to perform ADL's. OT Jail Goals Structural Design Engineer Goals Time Frame: Sep 25, 2018 Eating (FIM): 6 Eating (QC): 6 Groomin Oral Hygiene (QC): 6 Bathing(FIM): 6 Shower/Bathe Self (QC): 6 Upper Body Dressing(FIM): 6 Upper Body Dressing (QC): 6 Lower Body Dressing(FIM): 6 Lower Body Dressing (QC): 6 On/Off Footwear (QC): 6 Toileting(FIM): 6 Toileting Hygiene (QC): 6 Toilet/Commode Transfer(FIM): 6 Toilet/Commode Transfer (QC): 6 Tub Transfer(FIM): 6 Shower Transfer(FIM): 6 Additional Goals: 1-Demonstrate ADL Tasks, 2-Verbalize Understanding, 3- ImproveStrength/Deb 1=Demonstrate adherence to instructed precautions during ADL tasks. 2=Patient will verbalize/demonstrate understanding of assistive devices/ modifications for ADL. 3=Patient will improve strength/tolerance for activity to enable patient to perform ADL's. OT Education/Plan Problem List/Assessment Pt would benefit from skilled oT to increase his independence in basic self care to allow him to safely return to his home after cardiac surgery Discharge Recommendations Plan/Recommendations: Continue POC Treatment Plan/Plan of Care Patient would benefit from OT for education, treatment and training to promote independence in ADL's, mobility, safety and/or upper extremity function for ADL' s. Plan of Care: ADL Retraining, Functional Mobility, Group Exercise/Act as Ind ( education, exercise, activity tolerance, functional activities, socialization), UE Funct Exercise/Act, UE Neuromus Re-Ed/Coord, OTHER (energy conservation educaiton) Treatment Duration: Sep 25, 2018 Frequency: At least 5 of 7 days/Wk (IRF) Estimated Hrs Per Day: 1.5 hours per day Agreement: Yes Rehab Potential: Good Time/GCodes Start Time: 10:00 Stop Time: 11:10 Total Time Billed (hr/min): 70 Billed Treatment Time visit, 70 minutes ADL JENNIFER JACK OT Sep 05, 2018 13:33
[2018-09-05] MEDS ORDERED: FOLIC ACID 1 MG TAB PO SCH (14:30)
--- NOTE | 2018-09-05 15:06 | Therapy Group Daily Note ---
Therapy Daily Group Note Patient Education Topic Home Safety, Other List Below (Fall Prevention) Exercises LE Seated Exercise, UE Exercise Other/Notes Pt ambulates to PT/OT Group using FWW at close SBA. Group consists of Introduction (Name, Where you are from and An example of a fall you have had), Socialization, Pt led Seated UE/LE EX, Home Safety & Fall Prevention Techniques. Pt actively participated in Group by leading an exercise, giving personal examples of falls and fall prevention techniques pt has used. Pt actively listened to other patients during group and brought a good sense of humor to the Group tx. Pt returned to room at end of Group with all needs met. Start Time: 13:00 Stop Time: 14:20 Total Billed Treatment Time: 80 Total Billed Treatment 1, GRP SEKOU CUI CORPORATE COUNSEL Sep 05, 2018 15:06
[2018-09-05 15:29] VITALS: BP 131/66
--- NOTE | 2018-09-05 19:34 | PM & R (SOAP) Progress Note ---
Subjective This was a face to face visit with the patient. Date Seen by Provider: Sep 05, 2018 Time Seen by Provider: 19:25 Subjective/Events-last exam Patient was seen in his room this evening Discussed case with RN Patient Had BM and now requesting hemorrhoidal cream see orders Patient Mod assist for transfers Adjusting well to unit Date Identified: Sep 05, 2018 Time Identified: 19:20 Medication Intervention: Hemorrhoidal cm as per above Objective Physician Exam Last Set of Vital Signs Vital Signs Date Time Temp Pulse Resp B/P (MAP) Pulse Ox O2 Delivery O2 Flow Rate FiO2 09/05/18 15:29 98.1 77 16 131/66 (87) 97 Room Air Capillary Refill : I&O Intake and Output 09/05/18 00:00 Intake Total 400 ml Output Total 200 ml Balance 200 ml Intake Oral 400 ml Output Urine Total 200 ml Daily Weight Change No General: Alert, Oriented X3, Cooperative, No Acute Distress HEENT: Atraumatic, PERRLA, EOMI, Mucous Memb Moist/[place] Neck: Supple, No JVD Lungs: Clear to Auscultation Heart: Regular Rate Abdomen: Normal Bowel Sounds, Soft, No Tenderness Extremities: No Edema Skin: Other (Sternotomy site healing well Plus psoriatic rash) Neuro: Other ( Strength BU limbs 4/5 Hip flex 4/5 distal 5/5) Assessment/Plan Assessment and Plan general debil s/p CABG Postop constipation with hemorrhoidal pain -see RX Immunosuppression currently off Humira and methotrexate Seborrheic dermatitis Inflammatory arthritis Postop PAF on Amiodarone Plan Continue PT/OT RX as per above F/U with PCP and Cardiology DR Muñiz as per their schedule Co-Morbidities that are continuing to impact the rehab process: (include details ) ИРИНА CHERRY MD Sep 05, 2018 19:34
[2018-09-05] MEDS ORDERED: PREPARATION H OINTMENT 57 GR TUBE PR PRN (19:45)
[2018-09-05 20:50] VITALS: BP 136/62
[2018-09-05] MEDS: ATORVASTATIN 40 MG (LIPITOR) TABLET PO SCH (20:58)
[2018-09-05] MEDS: diphenhydrAMINE 25 MG TAB (BENADRYL) PO PRN (20:59)
--- NOTE | 2018-09-05 22:51 | History & Physical ---
History of Present Illness History of Present Illness Reason for visit/HPI 73 yo M admitted to inpatient rehab following a CABG in [place] with Dr. Grey on 08/29/18. He also had a run of atrial fibrillation but since has converted and remains in normal sinus rhythm. Patient reports he is doing well and hopeful not to be in rehab too long. He is working with PT/OT and doing well. He does have some incisional pain in his chest and right thigh from the vein harvest. Patient reports he took a shower today and only required help washing his back. Pt has history of seborrheic dermatitis and was being treated for psoriatic arthritis with methotrexate and humira. He has not been taking humira the past 3months due to cost. Date of Admission Sep 04, 2018 at 13:33 Date Seen by a Provider: Sep 05, 2018 Time Seen by a Provider: 12:30 I consulted on this patient on 09/05/18 22:42 Attending Physician Abisai Hines MD Admitting Physician Deny Miramontes MD Consult Allergies and Home Medications Allergies Coded Allergies: No Known Drug Allergies (Unverified , 04/09/13) Home Medications Adalimumab 40 Mg/0.4 Ml Pen.ij.kit, 40 MG SQ EVERY 2 WEEKS, (Reported) Betamethasone Dipropionate 15 Gm Cream..g., TP BID, (Reported) Fexofenadine HCl 60 Mg Tablet, 60 MG PO BID, (Reported) Folic Acid 1 Mg Tablet, 1 MG PO DAILY, (Reported) Gentamicin Sulfate 15 Gm Cream..g., TP BID, (Reported) Methotrexate Sodium 2.5 Mg Tablet, 10 MG PO WEEK, (Reported) 4 TABLETS EVERY 7DAYS Nystatin 15 Gm Cream..g., TP BID, (Reported) Patient Home Medication List Home Medication List Reviewed: Yes Past Erqarad-Nlhklo-Yqmxid Hx Patient Social History Alcohol Use: Past History Recreational Drug Use: No Smoking Status: Former Smoker Former Smoker, Quit: Aug 26, 1998 Type Used: Cigarettes Physical Abuse Screen: No Sexual Abuse: No Recent Foreign Travel: No Contact w/other who traveled: No Recent Hopitalizations: Yes (CABG 08-29-18) Recent Infectious Disease Expo: No Immunizations Up To Date Tetanus Booster (TDap): More than 5yrs Date of Pneumonia Vaccine: Sep 19, 2012 Seasonal Allergies Seasonal Allergies: Yes Surgeries Yes (COLECTOMY, COLOSTOMY REVERSAL, HERNIA) Respiratory No Currently Using CPAP: No Currently Using BIPAP: No Cardiovascular Yes Neurological No Reproductive System Hx Reproductive Disorders: No Genitourinary No Gastrointestinal Yes (COLOSTOMY REVERSAL) Diverticulosis Musculoskeletal Yes (ARTHRITIS IN HANDS) Arthritis, Fractures Endocrine History of Endocrine Disorders: No HEENT HEENT Disorders: Cataract Loss of Vision: Denies Hearing Impairment: Denies Cancer No Psychosocial History of Psychiatric Problem: No Integumentary History of Skin or Integumenta: Yes (Rosacea) Blood Transfusions History of Blood Disorders: No Family Medical History Family Hx: Cardiovascular disease 19 FATHER G8 SISTER Review of Systems Review of Systems General: No Chills, No Night Sweats HEENT: No Head Aches, No Visual Changes Pulmonary: No Dyspnea, No Cough Cardiovascular: Chest Pain Gastrointestinal: No: Nausea, Abdominal Pain Genitourinary: No Dysuria, No Frequency Musculoskeletal: No: neck pain, shoulder pain Neurological: Weakness Physical Exam Vital Signs Vital Signs - First Documented 09/04/18 13:30 Temp 98.0 Pulse 79 Resp 20 B/P (MAP) 109/59 (76) Pulse Ox 98 O2 Delivery Room Air Capillary Refill : Height, Weight, BMI Height: 6'0.00" Weight: 261lbs. 8.0oz. 118.874878wc; 35.5 BMI Method:Stated General Appearance: No Apparent Distress, WD/WN HEENT: PERRL/EOMI Neck: Non Tender, Supple Respiratory: Chest Non Tender, Lungs Clear, Normal Breath Sounds, No Accessory Muscle Use, No Respiratory Distress Cardiovascular: Regular Rate, Rhythm Gastrointestinal: Normal Bowel Sounds, Non Tender, Soft Rectal: Deferred Back: Normal Inspection, No CVA Tenderness Extremity: Normal Capillary Refill, No Calf Tenderness Neurologic/Psychiatric: Alert, Oriented x3, No Motor/Sensory Deficits, Normal Mood/Affect Skin: Warm/Dry Lymphatic: No Adenopathy Assessment/Plan Assessment/Plan Admission Dx CAD s/p CABG HTN physical debility weakness Admission Status: Inpatient Order (span 2 midnights) Reason for Inpatient Admission: status post CABG- requiring PT/OT for a safe return home and prevent readmission. Assessment and Plan 73 yo M *coronary artery disease s/p CABG 08/29/18- doing well - follow up with Dr Barraza Nov . continue plavix, statin. * physical debility- inpatient rehab- working with PT/OT. * HTN- under good control. *psoriatic arthritis- holding humira, holding methotrexate- as they will delay healing. *paroxysmal atrial fibrillation- in NSR, suspect it was related to stress/CABG procedure. Dispo: continue inpatient rehab- will benefit from graduating from inpatient rehab with better outcomes s/p CABG and safer return home. Will follow along. Clinical Quality Measures DVT/VTE Risk/Contraindication: Risk Factor Score Per Nursin RFS Level Per Nursing on Admit: 4+=Very High DENY MIRAMONTES MD Sep 05, 2018 22:51
[2018-09-06 05:42] VITALS: BP 132/53
[2018-09-06 06:04] LABS: BASOPHILS % (AUTO) 0 % (0-10); EOSINOPHILS # (AUTO) 0.3 10^3/uL (0.0-0.3); EOSINOPHILS % (AUTO) 4 % (0-10); LYMPHOCYTES # (AUTO) 1.6 X 10^3 (1.0-4.0); LYMPHOCYTES % (AUTO) 20 % (12-44); MEAN CORPUSCULAR HGB CONC 34 G/DL (32-36); MEAN CORPUSCULAR VOLUME 98 FL (80-99); MONOCYTES # (AUTO) 0.9 X 10^3 (0.0-1.0); MONOCYTES % (AUTO) 11 % (0-12); NEUTROPHILS # (AUTO) 5.1 X 10^3 (1.8-7.8); NEUTROPHILS % (AUTO) 65 % (42-75); RED CELL DISTRIBUTION WIDTH 15.5 % (10.0-14.5)
[2018-09-06 06:09] LABS: HEMATOCRIT 26 % (40-54); HEMOGLOBIN 8.4 G/DL (13.3-17.7); MEAN CORPUSCULAR HEMOGLOBIN 33 PG (25-34); RED BLOOD COUNT 2.57 10^6/uL (4.35-5.85); WHITE BLOOD COUNT 8.8 10^3/uL (4.3-11.0)
[2018-09-06 06:10] LABS: PLATELET COUNT 140 10^3/uL (130-400)
[2018-09-06 06:23] LABS: BUN/CREATININE RATIO 18; CALCIUM 8.4 MG/DL (8.5-10.1); CARBON DIOXIDE 19 MMOL/L (21-32); CHLORIDE 105 MMOL/L (98-107); CREATININE SERUM 0.93 MG/DL (0.60-1.30); GFR ESTIMATED > 60; GLUCOSE 92 MG/DL (70-105); POTASSIUM 3.9 MMOL/L (3.6-5.0); SODIUM 136 MMOL/L (135-145)
[2018-09-06] MEDS: FOLIC ACID 1 MG TAB PO SCH (06:37)
--- NOTE | 2018-09-06 08:42 | Occupational Ther Daily Note ---
OT Current Status-Daily Note Subjective Pt seen in room, up in recliner, agreeable to OT. No pain mentioned except some discomfort anticipated with sit to stand Appearance Alert, cooperative Mental Status/Objective Functional [place] Measure 0=Not Assessed/NA 4=Minimal Assistance 1=Total Assistance 5=Supervision or Setup 2=Maximal Assistance 6=Modified [place] 3=Moderate Assistance 7=Complete [place] ADL-Treatment Pt education on use of dressing stick to take socks off and use of soft sock aid to put them on, with return demo. He declined to shower but wanted to brush teeth and shave. He got up from recliner with SBA and walked with FWW to bathroom. He stood at sink, SBA, pt educ for walker placement, for about 8 minutes to wash face and hands, brush dentures and teeth, comb hair. He denied being SOB but, after given a chair to use to sit to shave, required a recovery period. He was able to shave with setup, seated at sink. All ADLs took longer than usual due to decreased activity tolerance. He walked back to room to recliner and was left up in chair, all needs met. Functional [place] Measure 0=Not Assessed/NA 4=Minimal Assistance 1=Total Assistance 5=Supervision or Setup 2=Maximal Assistance 6=Modified [place] 3=Moderate Assistance 7=Complete IndependenceIRFPAI Quality Coding Scale 6 Independent with activity with or without an assistive device 5 Patient requires set up or clean up by helper. Patient completes activity by themselves 4 Supervision or touching assist (CGA). [place] provide cues , steadying assist 3 The helper provides less than half the effort to complete the activity 2 The helper provides more than half the effort to complete the activity 1 Dependent. The helper does all the effort to complete an activity 7 Patient refused to complete or attempt activity 9 The patient did not perform the activity before the current illness or injury 88 Not attempted due to Medical conditions or safety concerns Grooming (FIM): 5 (SBA) Oral Hygiene (QC): 4 (SBA) Education OT Patient Education: Modified ADL techniques, Progress toward Goal/Update tx plan, Purpose of tx/functional activities, Safety issues, Use of adapted equipment Teaching Recipient: Patient Teaching Methods: Demonstration, Discussion Response to Teaching: Verbalize Understanding, Return Demonstration OT Short Term Goals Short Term Goals Time Frame: Sep 11, 2018 Upper Body Dressing(FIM): 5 Lower Body Dressing(FIM): 5 Toileting(FIM): 5 Transfers (B,C,W/C) (FIM): 4 Toilet/Commode Transfer(FIM): 5 Additional Short Term Goals: 1-Demonstrate ADL Tasks, 2-Verbalize Understanding , 3-ImproveStrength/Deb 1=Demonstrate adherence to instructed precautions during ADL tasks. 2=Patient will verbalize/demonstrate understanding of assistive devices/ modifications for ADL. 3=Patient will improve strength/tolerance for activity to enable patient to perform ADL's. OT Assembler Installer General Goals Penitentiary Goals Time Frame: Sep 25, 2018 Eating (FIM): 6 Eating (QC): 6 Groomin Oral Hygiene (QC): 6 Bathing(FIM): 6 Shower/Bathe Self (QC): 6 Upper Body Dressing(FIM): 6 Upper Body Dressing (QC): 6 Lower Body Dressing(FIM): 6 Lower Body Dressing (QC): 6 On/Off Footwear (QC): 6 Toileting(FIM): 6 Toileting Hygiene (QC): 6 Toilet/Commode Transfer(FIM): 6 Toilet/Commode Transfer (QC): 6 Tub Transfer(FIM): 6 Shower Transfer(FIM): 6 Additional Goals: 1-Demonstrate ADL Tasks, 2-Verbalize Understanding, 3- ImproveStrength/Deb 1=Demonstrate adherence to instructed precautions during ADL tasks. 2=Patient will verbalize/demonstrate understanding of assistive devices/ modifications for ADL. 3=Patient will improve strength/tolerance for activity to enable patient to perform ADL's. OT Education/Plan Problem List/Assessment Pt would benefit from skilled oT to increase his independence in basic self care to allow him to safely return to his home after cardiac surgery Discharge Recommendations Plan/Recommendations: Continue POC Treatment Plan/Plan of Care Patient would benefit from OT for education, treatment and training to promote independence in ADL's, mobility, safety and/or upper extremity function for ADL' s. Plan of Care: ADL Retraining, Functional Mobility, Group Exercise/Act as Ind ( education, exercise, activity tolerance, functional activities, socialization), UE Funct Exercise/Act, UE Neuromus Re-Ed/Coord, OTHER (energy conservation educaiton) Treatment Duration: Sep 25, 2018 Frequency: At least 5 of 7 days/Wk (IRF) Estimated Hrs Per Day: 1.5 hours per day Agreement: Yes Rehab Potential: Good Time/GCodes Start Time: 10:00 Stop Time: 11:00 Total Time Billed (hr/min): 60 Billed Treatment Time visit, 60 minutes ADL JENNIFER JACK OT Sep 06, 2018 08:42
--- NOTE | 2018-09-06 09:05 | Physical Therapy Daily Note ---
PT Daily Note-Current Subjective Pt. is jovial, agrees to Rx, states he is feeling well except for hemorrhoids are painful at 6/10 while attempting to have a BM Pain Numeric Pain Scale: 6 Location: Soft Tissue Location Body Site: Sacrum (hemorrhoids) Pain Description: Burning Mental Status Patient Orientation: Normal For Age Attachments: Other-See Comments (clutch heart pillow) Transfers Functional [place] Measure 0=Not Assessed/NA 4=Minimal Assistance 1=Total Assistance 5=Supervision or Setup 2=Maximal Assistance 6=Modified [place] 3=Moderate Assistance 7=Complete IndependenceIRFPAI Quality Coding Scale 6 Independent with activity with or without an assistive device 5 Patient requires set up or clean up by helper. Patient completes activity by themselves 4 Supervision or touching assist (CGA). [place] provide cues , steadying assist 3 The helper provides less than half the effort to complete the activity 2 The helper provides more than half the effort to complete the activity 1 Dependent. The helper does all the effort to complete an activity 7 Patient refused to complete or attempt activity 9 The patient did not perform the activity before the current illness or injury 88 Not attempted due to Medical conditions or safety concerns Transfers (B, C, W/C) (FIM): 3 Scootin Rollin Supine to/from Sit: 3 Sit to/from Stand: 5 laying flat requires mod assist to come up Weight Bearing Right Lower Extremity: Right Full Weight Bearing Left Lower Extremity: Left Full Weight Bearing Gait Training Does the Patient Walk?: Yes Gait (FIM): 5 Distance (FIM): 3=150 ft (175x2, 50x1) Gait Level of Assist: 5 Gait Persons Needed: 1 Gait Assistive Device: FWW slow, careful, no LOB Exercises Supine Ex: Ankle pumps, Quad Set, Rolling, Glut sets, Heel Slides, Short Arc Quads, Scooting, Hip abd/add Supine Reps: 15 Seated Therapy Exercises: Ankle pumps, Sit to stand, Long arc quads, Hip flexion Seated Reps: 15 NuStep Minutes: 12 NuStep Workload: 1 Treatments toileted with max assist to clean up after BM and apply hemorrhoid cream Assessment Current Status: Good Progress making progress PT Short Term Goals Short Term Goals Time Frame: Sep 11, 2018 Transfers (B,C,W/C) (FIM): 4 Gait (FIM): 4 Gait Distance Comment: 150' Gait Level of Assist: 4 Gait Assistive Device: FWW PT Senior Living Goals Senior Living Goals PT Senior Living Goals Time Frame: Sep 25, 2018 Transfers (B,C,W/C) (FIM): 5 Sit to Lying (QC): 4 Lying-Sitting on Side/Bed(QC): 4 Sit to Stand (QC): 4 Rollin Roll Left to Right (QC): 4 Chair/Axg-qk-Nalgm Xfer(QC): 4 Car Transfer (QC): 4 Gait (FIM): 5 Distance: 200' Walk 10 feet (QC): 4 Walk 10ft-Uneven Surface(QC): 4 Walk 50ft with 2 Turns (QC): 4 Walk 150 ft (QC): 4 Gait Level of Assist: 5 Gait Assistive Device: FWW Stairs (FIM): 2 # of Steps: 4 1 Step (curb) (QC): 4 4 Steps (QC): 4 Stairs Level Of Assist: 4 PT Plan Treatment/Plan Treatment Plan: Continue Plan of Care Treatment Plan: Bed Mobility, Concurrent Therapy, Education, Functional Activity Deb, Functional Strength, Group Therapy, Gait, Safety, Therapeutic Exercise, Transfers Treatment Duration: Sep 25, 2018 Frequency: At least 5 of 7 days/Wk (IRF) Estimated Hrs Per Day: 1.5 hours per day Patient and/or Family Agrees t: Yes Safety Risks/Education Patient Education: Gait Training, Transfer Techniques, Correct Positioning, Disease Process, Safety Issues Teaching Recipient: Patient Teaching Methods: Demonstration, Discussion Response to Teaching: Verbalize Understanding, Return Demonstration, Reinforcement Needed Time/GCodes Time In: 800 Time Out: 900 Total Billed Treatment Time: 60 Total Billed Treatment 1,EX25m,GT15m,FA20m G Codes Necessary: BRY Garcia LEARNING AND DEVELOPMENT INTERN Sep 06, 2018 09:05
[2018-09-06] MEDS: lisINopril 10 MG (PRINIVIL) TABLET PO SCH (09:24)
[2018-09-06] MEDS: CLOPIDOGREL 75 MG (PLAVIX) TABLET PO SCH (09:24)
[2018-09-06] MEDS: LORATADINE (CLARITIN) 10 MG TAB PO SCH ×2 (09:24→20:46)
[2018-09-06] MEDS: AMIODARONE 200 MG (CORDARONE) TAB PO SCH ×2 (09:24→20:46)
[2018-09-06] MEDS: ASPIRIN E.C. 81 MG (ECOTRIN) TAB PO SCH (09:24)
[2018-09-06] MEDS: BETAMETHASONE DIPRO (AUGMENTED) 0.05% CREAM 15 GM TOP SCH ×2 (09:26→20:47)
[2018-09-06] MEDS: GENTAMICIN 0.1% TOP SCH ×2 (09:26→20:47)
[2018-09-06] MEDS: NYSTATIN CREAM (MYCOSTATIN) 30 GM TUBE TP SCH ×2 (09:27→20:46)
--- NOTE | 2018-09-06 14:29 | Therapy Group Daily Note ---
Therapy Daily Group Note Patient Education Topic Energy Cons Exercises LE Seated Exercise, UE Exercise Other/Notes Pt was an active participant in OT/PT group. He introduced himself and shared his favorite Halloween memory. He contributed to discussion/education on activity tolerance and energy conservation and also education/discussion on benefits of exercise. He did seated UE and LE exercises and led one for the group. He walked back to his room with SBA, FWW and was left up in bed, all needs met. Start Time: 13:00 Stop Time: 14:10 Total Billed Treatment Time: 70 Total Billed Treatment visit, 70 minutes group JENNIFER JACK OT Sep 06, 2018 14:29
--- NOTE | 2018-09-06 14:46 | Consultation-Cardiology ---
HPI-Cardiology Cardiology Consultation: Date of Consultation 09/06/18 Date of Admission Attending Physician Abisai Hines MD Admitting Physician Deny Chilel MD Consulting Physician Jessica MUÑIZ MD HPI: Time Seen by a Provider: 14:46 Chief Complaint: Coronary artery disease This is a 73-year-old gentleman who I saw as an outpatient for typical chest pain. Nuclear stress test showed anterior ischemia. Coronary angiography showed moderate to severe left main stenosis and significant [place] CAD. He was transferred to [facility] for evaluation for CABG. This was performed by Dr. Corwin Barraza. The patient has been transferred back to [facility] for inpatient rehabilitation post CABG. The patient is doing well with no chest pain or shortness of breath. Review of Systems-Cardiology Review of Systems Constitutional: As described under HPI; No As described under HPI, No no symptoms reported, No chills, No fever, No lightheadedness Eyes: No As described under HPI, No no symptoms reported, No blindness, No blurred vision, No contact lenses, No drainage, No decreased acuity, No foreign body sensation, No pain, No vision change Ears/Nose/Throat: No As described under HPI, No no symptoms reported, No chronic hearing loss, No ear discharge, No ear pain, No nasal drainage, No ulcerations Respiratory: No no symptoms reported; As described under HPI; No As described under HPI, No cough, No orthopnea, No shortness of breath, No SOB with excertion Cardiovascular: No no symptoms reported; As described under HPI; No As described under HPI, No chest pain, No edema, No irregular heart rate, No lightheadedness, No palpitations Gastrointestinal: No no symptoms reported, No As described under HPI, No abdomen distended, No abdominal pain, No blood streaked bowels, No constipation , No diarrhea, No nausea, No vomiting, No stool coloration changes Genitourinary: No As described under HPI, No burning, No dysuria, No discharge , No frequency, No flank pain, No hematuria, No urgency Skin: No rash, No skin related problems, No ulcerations Psychiatric/Neurological: No anxiety, No depression, No seizure, No focal weakness, No syncope Hematologic: No bleeding abnormalities QAS-Ycygwh-Xbhbga Hx Patient Social History Alcohol Use: Past History Recreational Drug Use: No Smoking Status: Former Smoker Type Used: Cigarettes Recent Foreign Travel: No Recent Infectious Disease Expo: No Hospitalization with Isolation: Denies Physical Abuse Screen: No Sexual Abuse: No Immunizations Up To Date Tetanus Booster (TDap): More than 5yrs Date of Pneumonia Vaccine: Sep 19, 2012 Past Medical History PMH As described under Assessment. Family Medical History Family History: Cardiovascular disease 19 FATHER G8 SISTER Allergies and Home Medications Allergies Coded Allergies: No Known Drug Allergies (Unverified , 04/09/13) Home Medications Adalimumab 40 Mg/0.4 Ml Pen.ij.kit, 40 MG SQ EVERY 2 WEEKS, (Reported) Betamethasone Dipropionate 15 Gm Cream..g., TP BID, (Reported) Fexofenadine HCl 60 Mg Tablet, 60 MG PO BID, (Reported) Folic Acid 1 Mg Tablet, 1 MG PO DAILY, (Reported) Gentamicin Sulfate 15 Gm Cream..g., TP BID, (Reported) Methotrexate Sodium 2.5 Mg Tablet, 10 MG PO WEEK, (Reported) 4 TABLETS EVERY 7DAYS Nystatin 15 Gm Cream..g., TP BID, (Reported) Patient Home Medication List Home Medication List Reviewed: Yes Physical Exam-Cardiology Physical Exam Vital Signs/I&O 09/07/18 09/07/18 05:18 08:23 Temp 98.5 Pulse 73 Resp 17 B/P (MAP) 131/69 (89) Pulse Ox 96 O2 Delivery Room Air Room Air 09/07/18 00:00 Intake Total 480 ml Output Total 500 ml Balance -20 ml Capillary Refill : Constitutional: appears stated age, AAO x 3; No apparent distress; well- developed, well-nourished HEENT: PERRL; No normal ENT inspection, No TMs normal, No pharynx normal, No scleral icterus (R), No scleral icterus (L), No pale conjunctivae (R), No pale conjunctivae (L), No photophobia, No TM abnormal (R), No TM abnormal (L), No pharyngeal erythema, No tonsillar exudate, No other, No discharge, No EOMI; hearing is well preserved; No hard of hearing; oral hygience is good; No ulceration, No xanthelasmas are seen Neck: No non-tender, No full range of motion, No supple, No normal inspection, No carotid bruit, No limited range of motion, No lymphadenopathy (R), No lymphadenopathy (L), No tender lateral, No tender midline, No thyromegaly, No other; carotid pulses are 2 + bilaterally; No with good upstrokes Respiratory: No accessory muscle use, No respiratory distress, No chest tender , No chest expansion is symmetric; chest is bilaterally symmetric; No lungs clear to percussion; lungs clear to auscultation; No crackles, No rhonchi, No rales, No stridor, No wheezing, No pleural rub, No other Cardiovascular: regular rate-rhythm, S1 and S2 Gastrointestinal: No tender, No soft, No round, No distended, No pulsatile mass , No organomegaly, No guarding, No rebound, No tenderness, No hernia, No mass, No audible bowel sounds, No abnormal bowel sounds, No abdominal bruits, No spleenomegaly, No other Rectal: deferred Extremities: No normal range of motion, No non-tender, No normal inspection, No pedal edema, No calf tenderness, No normal capillary refill, No pelvis stable , No calf tenderness, No inflammation, No pedal edema, No slow capillary refill , No swelling, No other, No abrasion, No clubbing, No cyanosis, No ecchymosis, No laceration, No no lower extremity edema bilateral, No significant edema, No tenderness, No wound Neurologic/Psychiatric: no motor/sensory deficits, alert, normal mood/affect, oriented x 3, power is 5/5 both on sides Skin: No rash, No ulcerations Data Review Labs ECG Impression ECG Initial ECG Rhythm: Normal Sinus Initial ECG Impression: Normal A/P-Cardiology Assessment/Admission Diagnosis CAD, recent CABG. Paroxysmal atrial fibrillation, Hypertension, Hyperlipidemia, Inflammatory arthritis on Humira Plan Continue aspirin, Plavix, beta lj, RAINE inhibitor, statin for CAD. Continue amiodarone for now for paroxysmal atrial fibrillation. Likely post surgery. Intensive spirometry was recommended. Thank you for your consultation. Please call me if you have any questions. Susan Muñiz MD, FACP, FACC, FSCAI, FHRS, CCDS Interventional Cardiology Cardiac Electrophysiology Vascular Medicine and Endovascular Interventions Clinical Quality Measures DVT/VTE Risk/Contraindication: Risk Factor Score Per Nursin RFS Level Per Nursing on Admit: 4+=Very High Jessica MUÑIZ MD Sep 06, 2018 2:46 pm
--- NOTE | 2018-09-06 15:49 | PM & R (SOAP) Progress Note ---
Subjective This was a face to face visit with the patient. Date Seen by Provider: Sep 06, 2018 Time Seen by Provider: 11:50 Subjective/Events-last exam Patient was seen in his room this AM Feels much better after BM and hemorrhoidal cream Patient Min assist for transfers Appreciate Labs Patient requests to see DR Muñiz cardiology see orders Objective Physician Exam Last Set of Vital Signs Vital Signs Date Time Temp Pulse Resp B/P (MAP) Pulse Ox O2 Delivery O2 Flow Rate FiO2 09/06/18 09:00 Room Air 09/06/18 05:42 97.9 72 18 132/53 (79) 97 Capillary Refill : I&O Intake and Output 09/06/18 00:00 Intake Total 1780 ml Output Total 300 ml Balance 1480 ml Intake Oral 1780 ml Output Urine Total 300 ml # Voids 9 # Bowel Movements 3 General: Alert, Oriented X3, Cooperative, No Acute Distress HEENT: Atraumatic, PERRLA, EOMI, Mucous Memb Moist/[place] Neck: Supple, No JVD Lungs: Clear to Auscultation Heart: Regular Rate Abdomen: Normal Bowel Sounds, Soft, No Tenderness Extremities: No Edema Skin: Other (Sternotomy site healing well Plus psoriatic rash) Neuro: Other ( Strength BU limbs 4/5 Hip flex 4/5 distal 5/5) Results Lab Data Laboratory Tests 09/06/18 05:30: White Blood Count 8.8, Red Blood Count 2.57L, Hemoglobin 8.4L, Hematocrit 26L, Mean Corpuscular Volume 98, Mean Corpuscular Hemoglobin 33, Mean Corpuscular Hemoglobin Concent 34, Red Cell Distribution Width 15.5H, Platelet Count 140, Mean Platelet Volume 9.0, Neutrophils (%) (Auto) 65, Lymphocytes (%) (Auto) 20, Monocytes (%) (Auto) 11, Eosinophils (%) (Auto) 4, Basophils (%) (Auto) 0, Neutrophils # (Auto) 5.1, Lymphocytes # (Auto) 1.6, Monocytes # (Auto) 0.9, Eosinophils # (Auto) 0.3, Basophils # (Auto) 0.0, Sodium Level 136, Potassium Level 3.9, Chloride Level 105, Carbon Dioxide Level 19L, Anion Gap 12, Blood Urea Nitrogen 17, Creatinine 0.93, Estimat Glomerular Filtration Rate > 60, BUN/ Creatinine Ratio 18, Glucose Level 92, Calcium Level 8.4L Assessment/Plan Assessment and Plan General debil s/p CABG s/p CABG for CAD Immunosuppression currently off Humira and methotrexate Seborrheic dermatitis Inflammatory arthritis Postop PAF on amiodarone Post Op constipation and hemorrhoidal pain improved with RX Post op anemia Hypocalcemia Plan Continue PT/OT Consult DR Muñiz Appreciate DR Min note and orders Team Conference next week Co-Morbidities that are continuing to impact the rehab process: (include details ) ИРИНА CHERRY MD Sep 06, 2018 15:49
--- NOTE | 2018-09-06 15:56 | Individualized Plan of Care ---
Individualized Plan of Care Rehab Nursing IPOC Order Admission Date Sep 04, 2018 at 13:33 Current Orders Orders Pt Evaluate/Treat Request (09/04/18 12:05) Request Ot Evaluate & Treat (09/04/18 12:05) Request For Cognitive Services (09/04/18 12:05) Admission Order(Inpt,Obs,Sdc) (09/04/18 14:17) Vital Signs: Routine (Order) 08,16,00 (09/04/18 14:17) Sequential Compression Device 08,20 (09/04/18 14:17) Locker Attendant-Inpt Rehab Con (09/04/18 14:17) Rehab Nursing Orders-Ipoc (09/04/18 14:17) Cho 60g/M 1snack (16-2000 Stephan) (09/04/18 Dinner) Turn And Reposition Q2HR (09/04/18 14:17) Intake & Output 06,14,22 (09/04/18 14:17) Precautions (Aru) (09/04/18 14:17) Weekly Weight (Lbs) WEEK (09/04/18 14:17) Code/Resuscitation (09/04/18 14:17) Initiate Admission Nursing Pro .admission (09/04/18 14:17) Consult Physician (09/04/18 14:21) Amiodarone Tablet (Cordarone Tablet) (09/04/18 21:00) Aspirin Enteric Coated Tablet (Ecotrin T (09/05/18 09:00) Atorvastatin Tablet (Lipitor) (09/04/18 21:00) Clopidogrel Tablet (Plavix Tablet) (09/05/18 09:00) Hydrocodone/Apap 5/325 Tablet (Lortab 5 (09/04/18 14:30) Lisinopril Tablet (Zestril Tablet) (09/05/18 09:00) Metoprolol Succinate (Xl) Tab (Toprol Xl (09/05/18 09:00) Betamethasone Dipropinate Crm (Diprolene (09/04/18 21:00) Loratadine Tablet (Claritin Tablet) (09/04/18 21:00) Folic Acid Tablet (Folic Acid Tablet) (09/04/18 14:30) Nystatin Cream (Mycostatin Cream) (09/04/18 21:00) Activity (09/04/18 15:18) Staple/Suture Removal (09/04/18 15:18) Nursing Communication (Order) (09/04/18 15:18) Follow-Up Appointment (09/04/18 15:18) Folic Acid Tablet (Folic Acid Tablet) (09/05/18 14:30) Folic Acid Tablet (Folic Acid Tablet) (09/05/18 07:00) Patient Visit (09/04/18 ) Pt Eval Moderate Complexity (09/04/18 ) Functional Activities, Ea 15 (09/04/18 ) Gentamicin 0.1% Cream (Gentamicin 0.1% C (09/05/18 09:00) Influenza Quad (5+[place]) 2017- (Afluria (09/04/18 18:00) Ambulate 08,12,20 (09/04/18 18:01) Sequential Compression Device 08,20 (09/04/18 18:01) Dvt/Vte Risk - Notifiy Physici 08 (09/04/18 18:01) Senna S Tablet (Senokot S Tablet) (09/04/18 18:45) Magnesium Hydroxide Oral Susp (Mom Oral (09/04/18 18:45) Acetaminophen Tablet/Caplet (Tylenol T (09/04/18 18:45) Diphenhydramine Tablet (Benadryl Tablet) (09/04/18 18:45) Request Ot Evaluate & Treat (09/04/18 19:36) Patient Visit (09/04/18 ) Speech Sound Lang Comp (09/04/18 ) Patient Visit (09/04/18 ) Exercise Therap, Ea 15 Min (09/04/18 ) Gait Training, Ea 15 Min (09/04/18 ) Patient Visit (09/05/18 ) Functional Activities, Ea 15 (09/05/18 ) Gait Training, Ea 15 Min (09/05/18 ) Patient Visit (09/05/18 ) Therapeutic, Group (09/05/18 ) Phenyleph/Mineral Oil/Petrolat (Hemorrho (09/05/18 19:45) Basic Metabolic Panel (09/06/18 05:00) Cbc With Automated Diff (09/06/18 05:00) Incentive Spirometry Initial (09/06/18 11:34) Incentive Spirometry (Nursing) Q2H (09/06/18 11:34) Consult Cardiology (09/06/18 14:42) Patient Visit (09/06/18 ) Exercise Therap, Ea 15 Min (09/06/18 ) Gait Training, Ea 15 Min (09/06/18 ) Functional Activities, Ea 15 (09/06/18 ) Rehab Nursing Orders: Ongoing Assess. of Cognitive Status, Ongoing Assess. of Function Status, Disease Management & Educaiton, DVT Prophylaxis, Fluid/ Electrolyte/Nutrition Mgmt, Infection Prevention, Medication Management & Education, Management of Risks & Complications, Management of Skin Intergrity, Nutrition Management, Pain Management, Patient/Family Support PT IPOC Problem List: Activity Tolerance, Functional Strength, Safety, Gait Treatment Plan: Continue Plan of Care Bed Mobility, Concurrent Therapy, Education, Functional Activity Deb, Functional Strength, Group Therapy, Gait, Safety, Therapeutic Exercise, Transfers Treatment Duration: Sep 25, 2018 Frequency: At least 5 of 7 days/Wk (IRF) Estimated Hrs Per Day: 1.5 hours per day OT IPOC Problems: Decreased Activ Tolerance, Decreased UE Strength, Dependent Transfers , Impaired Self-Care Skills, Restricted Funct UE ROM OT Treatment, Training and Edu: Yes OT Problems Pt would benefit from skilled oT to increase his independence in basic self care to allow him to safely return to his home after cardiac surgery Plan of Care: ADL Retraining, Functional Mobility, Group Exercise/Act as Ind ( education, exercise, activity tolerance, functional activities, socialization), UE Funct Exercise/Act, UE Neuromus Re-Ed/Coord, OTHER (energy conservation educaiton) Treatment Duration: Sep 25, 2018 Frequency: At least 5 of 7 days/Wk (IRF) Estimated Hrs Per Day: 1.[address] IPOC Speech Therapy Treatment Plan: Discontinue ST Treatment Duration: Sep 06, 2018 Frequency: Modified Program (IRF) (0) Estimated Hrs Per Day: Other (0) Locker Attendant/Case Mgmt Locker Attendant/Case Managemen: Discharge Planning, Patient/Family Counseling Dietitian/Interlocking Machine Operator Dietitian/Interlocking Machine Operator to monitor nutritional status and make changes and/or recommendations as needed and work with speech pathology on dietary upgrades as the occur. Physician IPOC Medical Issues being managed closely and that require the 24 hour availability of a physician: Postop anemia Postop constipation Post op PAF on amiodarone Immunosuppression currently off Humira and methotrexate Inflammatory arthritis Seborrheic dermatitis Medical Issues: Bowel/Bladder Function, DVT Prophylaxis, Falls Precautions, Fluid/Electrolyte/Nutrition Balance, Infection Protection, Pain Management, Wound Care, Other (List) (as per above) Brief Synthesis of Preadmission Screen, Post-Admission Evaluation, and Therapy Evaluations: 73 yo male who had been Independent and living in Community who had CABG for CAD at OSH referred here for ongoing care and therapies.Has HX of Immunosuppression for treatment of seborrheic dermatitis and Inflammatory arthritis with Humira and methotrexate currently on hold.Had postop PAF and patient on Amiodarone. [facility] code 09 Etioloc DX Coronary atherosclerosis Medical Prognosis: Good Anticipated Length of Stay: 7-10-days Modified Independent to supervision for adls and mobilty skills Anticipated d/c Destination: Home with family and [facility] ИРИНА CHERRY MD Sep 06, 2018 15:56
[2018-09-06 16:17] VITALS: BP 143/64
[2018-09-06] MEDS: ATORVASTATIN 40 MG (LIPITOR) TABLET PO SCH (20:46)
[2018-09-06] MEDS: diphenhydrAMINE 25 MG TAB (BENADRYL) PO PRN (20:51)
[2018-09-06] MEDS: ACETAMINOPHEN 325 MG TABLET PO PRN (23:47)
[2018-09-07 05:18] VITALS: BP 131/69
[2018-09-07] MEDS: FOLIC ACID 1 MG TAB PO SCH (06:07)
[2018-09-07] MEDS: GENTAMICIN 0.1% TOP SCH ×2 (07:36→20:05)
[2018-09-07] MEDS: AMIODARONE 200 MG (CORDARONE) TAB PO SCH ×2 (07:59→20:06)
[2018-09-07] MEDS: lisINopril 10 MG (PRINIVIL) TABLET PO SCH (07:59)
[2018-09-07] MEDS: ASPIRIN E.C. 81 MG (ECOTRIN) TAB PO SCH (07:59)
[2018-09-07] MEDS: LORATADINE (CLARITIN) 10 MG TAB PO SCH ×2 (07:59→20:06)
[2018-09-07] MEDS: CLOPIDOGREL 75 MG (PLAVIX) TABLET PO SCH (07:59)
[2018-09-07] MEDS: NYSTATIN CREAM (MYCOSTATIN) 30 GM TUBE TP SCH ×2 (08:00→20:05)
[2018-09-07] MEDS: BETAMETHASONE DIPRO (AUGMENTED) 0.05% CREAM 15 GM TOP SCH ×2 (08:00→20:05)
--- NOTE | 2018-09-07 08:09 | PM & R (SOAP) Progress Note ---
Subjective This was a face to face visit with the patient. Date Seen by Provider: Sep 07, 2018 Time Seen by Provider: 07:40 Subjective/Events-last exam Patient was seen in his room this AM Patient Min assist for transfers Discussed case with RN Patient reports GI upset with Hydrocodone willing to try Tramadol for Upper back neck pain Incision site healing well ( Sternotomy site) requesting eye drops as well for itchy eyes. Date Identified: Sep 07, 2018 Time Identified: 07:30 Medication Intervention: Change in pain meds as per above Review of Systems HEENT: Eye Pain Musculoskeletal: neck pain Objective Physician Exam Last Set of Vital Signs Vital Signs Date Time Temp Pulse Resp B/P (MAP) Pulse Ox O2 Delivery O2 Flow Rate FiO2 09/07/18 05:18 98.5 73 17 131/69 (89) 96 Room Air Capillary Refill : I&O Intake and Output 09/07/18 00:00 Intake Total 980 ml Output Total 875 ml Balance 105 ml Intake Oral 980 ml Output Urine Total 875 ml # Voids 1 # Bowel Movements 1 General: Alert, Oriented X3, Cooperative, No Acute Distress HEENT: Atraumatic, PERRLA, EOMI, Mucous Memb Moist/[place] Neck: Supple, No JVD Lungs: Clear to Auscultation Heart: Regular Rate Abdomen: Normal Bowel Sounds, Soft, No Tenderness Extremities: No Edema Skin: Other (Sternotomy site healing well Plus psoriatic rash) Neuro: Other ( Strength BU limbs 4/5 Hip flex 4/5 distal 5/5) Results Lab Data Laboratory Tests 09/06/18 05:30: White Blood Count 8.8, Red Blood Count 2.57L, Hemoglobin 8.4L, Hematocrit 26L, Mean Corpuscular Volume 98, Mean Corpuscular Hemoglobin 33, Mean Corpuscular Hemoglobin Concent 34, Red Cell Distribution Width 15.5H, Platelet Count 140, Mean Platelet Volume 9.0, Neutrophils (%) (Auto) 65, Lymphocytes (%) (Auto) 20, Monocytes (%) (Auto) 11, Eosinophils (%) (Auto) 4, Basophils (%) (Auto) 0, Neutrophils # (Auto) 5.1, Lymphocytes # (Auto) 1.6, Monocytes # (Auto) 0.9, Eosinophils # (Auto) 0.3, Basophils # (Auto) 0.0, Sodium Level 136, Potassium Level 3.9, Chloride Level 105, Carbon Dioxide Level 19L, Anion Gap 12, Blood Urea Nitrogen 17, Creatinine 0.93, Estimat Glomerular Filtration Rate > 60, BUN/ Creatinine Ratio 18, Glucose Level 92, Calcium Level 8.4L Assessment/Plan Assessment and Plan general debil s/p CABG for CAD Immunosuppression currently of Humira and methotrexate Upper back and posterior neck pain Dry eyes Constipation improved seborrheic dermatitis Inflammatory arthritis Postop PAF on amiodarone Postop anemia Hypocalcemia Plan Continue Pt/OT/Pain management Adjust meds as per above Team Conference next week Co-Morbidities that are continuing to impact the rehab process: (include details ) ИРИНА CHERRY MD Sep 07, 2018 08:09
--- NOTE | 2018-09-07 09:07 | Physical Therapy Daily Note ---
PT Daily Note-Current Subjective Patient in bed pre tx, agrees to PT, no complaints of pain at rest. Appearance Patient BTB post tx with nurse call, phone, tray, all needs met. Mental Status Patient Orientation: Normal For Age Transfers Functional [place] Measure 0=Not Assessed/NA 4=Minimal Assistance 1=Total Assistance 5=Supervision or Setup 2=Maximal Assistance 6=Modified [place] 3=Moderate Assistance 7=Complete IndependenceIRFPAI Quality Coding Scale 6 Independent with activity with or without an assistive device 5 Patient requires set up or clean up by helper. Patient completes activity by themselves 4 Supervision or touching assist (CGA). [place] provide cues , steadying assist 3 The helper provides less than half the effort to complete the activity 2 The helper provides more than half the effort to complete the activity 1 Dependent. The helper does all the effort to complete an activity 7 Patient refused to complete or attempt activity 9 The patient did not perform the activity before the current illness or injury 88 Not attempted due to Medical conditions or safety concerns Transfers (B, C, W/C) (FIM): 4 Scootin Rollin Supine to/from Sit: 4 Sit to/from Stand: 5 Bed to/from Chair: 5 Patient needs min assist getting one leg into bed with sit to supine. Weight Bearing Right Lower Extremity: Right Full Weight Bearing Left Lower Extremity: Left Full Weight Bearing Gait Training Gait (FIM): 2 Distance: 100'x2 Gait Level of Assist: 5 Gait Persons Needed: 1 Gait Assistive Device: FWW Exercises NuStep Minutes: 10 NuStep Workload: 5 (no arms used, only legs) Treatments bed mobility and transfers, ambulation, functional strengthening, dressing upper and lower Assessment Current Status: Fair Progress Patient gets very SOB with ambulation PT Short Term Goals Short Term Goals Time Frame: Sep 11, 2018 Transfers (B,C,W/C) (FIM): 4 Gait (FIM): 4 Gait Distance Comment: 150' Gait Level of Assist: 4 Gait Assistive Device: FWW PT Social Science Manager Goals Social Science Manager Goals PT Social Science Manager Goals Time Frame: Sep 25, 2018 Transfers (B,C,W/C) (FIM): 5 Sit to Lying (QC): 4 Lying-Sitting on Side/Bed(QC): 4 Sit to Stand (QC): 4 Rollin Roll Left to Right (QC): 4 Chair/Lhm-pi-Kwovm Xfer(QC): 4 Car Transfer (QC): 4 Gait (FIM): 5 Distance: 200' Walk 10 feet (QC): 4 Walk 10ft-Uneven Surface(QC): 4 Walk 50ft with 2 Turns (QC): 4 Walk 150 ft (QC): 4 Gait Level of Assist: 5 Gait Assistive Device: FWW Stairs (FIM): 2 # of Steps: 4 1 Step (curb) (QC): 4 4 Steps (QC): 4 Stairs Level Of Assist: 4 PT Plan Problem List Problem List: Activity Tolerance, Functional Strength, Safety, Balance, Gait, Transfer, Bed Mobility, ROM Treatment/Plan Treatment Plan: Continue Plan of Care Treatment Plan: Bed Mobility, Concurrent Therapy, Education, Functional Activity Deb, Functional Strength, Group Therapy, Gait, Safety, Therapeutic Exercise, Transfers Treatment Duration: Sep 25, 2018 Frequency: At least 5 of 7 days/Wk (IRF) Estimated Hrs Per Day: 1.5 hours per day Patient and/or Family Agrees t: Yes Safety Risks/Education Patient Education: Gait Training, Transfer Techniques, Reviewed Precautions, Correct Positioning, Safety Issues Teaching Recipient: Patient Teaching Methods: Demonstration, Discussion Response to Teaching: Reinforcement Needed Time/GCodes Time In: 0835 Time Out: 0900 Total Billed Treatment Time: 25 Total Billed Treatment EX 10' GT 15' SHARON GONZALEZ PT Sep 07, 2018 09:07
--- NOTE | 2018-09-07 12:56 | Progress Note-Hospitalist ---
Subjective HPI/CC On Admission Date Seen by Provider: Sep 07, 2018 Time Seen by Provider: 12:30 Subjective/Events-last exam Patient feeling ok except cough which causes sternotomy pain Post nasal drip and Claritin not helping so will give 1 dose of Atarax tonight to dry up secretions BM+ Urination good Review of Systems Pulmonary: Cough, Pleuritic Chest Pain Objective Exam Vital Signs Vital Signs Date Time Temp Pulse Resp B/P (MAP) Pulse Ox O2 Delivery O2 Flow Rate FiO2 09/07/18 08:23 Room Air 09/07/18 05:18 98.5 73 17 131/69 (89) 96 Capillary Refill : General Appearance: No Apparent Distress, WD/WN, Chronically ill, Obese Respiratory: Chest Non Tender, Lungs Clear, Normal Breath Sounds, No Accessory Muscle Use, No Respiratory Distress Cardiovascular: Regular Rate, Rhythm, No Edema, No Gallop, No JVD, No Murmur, Normal Peripheral Pulses Neurologic/Psychiatric: Alert, Oriented x3, No Motor/Sensory Deficits, Normal Mood/Affect Results/Procedures Lab Patient resulted labs reviewed. Assessment/Plan Assessment and Plan Assess & Plan/Chief Complaint Assessment: Debility CABG 08/29/18 Anjelica Eli Psoriatic arthritis HTN Post nasal drip Plan: Atarax tonight to dry up secretions Monitor closely Diagnosis/Problems Diagnosis/Problems (1) S/P CABG (coronary artery bypass graft) Status: Chronic (2) Cough Status: Acute (3) Post-nasal drip Status: Acute (4) Psoriatic arthritis Status: Chronic (5) Hypertension Status: Chronic Qualifiers: Hypertension type: essential hypertension Qualified Codes: I10 - Essential (primary) hypertension (6) Atrial fib/flutter, transient Status: Resolved (7) Obesity Status: Chronic Qualifiers: Obesity type: due to excess calories Obesity classification: adult class 2 (BMI 35 - 39.9) Clinical Quality Measures DVT/VTE Risk/Contraindication: Risk Factor Score Per Nursin RFS Level Per Nursing on Admit: 4+=Very High DEDRICK ARENAS DO Sep 07, 2018 12:56
--- NOTE | 2018-09-07 14:14 | Cardiology Progress Note ---
Cardiology SOAP Progress Note Subjective: No chest pain or shortness of breath. Objective: I&O/Vital Signs 09/07/18 09/07/18 05:18 08:23 Temp 98.5 Pulse 73 Resp 17 B/P (MAP) 131/69 (89) Pulse Ox 96 O2 Delivery Room Air Room Air 09/07/18 00:00 Intake Total 480 ml Output Total 500 ml Balance -20 ml Weight (Pounds): 261 Weight (Ounces): 8.0 Weight (Calculated Kilograms): 118.592258 Constitutional: appears stated age, AAO x 3; No apparent distress; well- developed, well-nourished Respiratory: No accessory muscle use, No respiratory distress, No chest tender , No chest expansion is symmetric; chest is bilaterally symmetric; No lungs clear to percussion; lungs clear to auscultation; No crackles, No rhonchi, No rales, No stridor, No wheezing, No pleural rub, No other Cardiovascular: regular rate-rhythm, S1 and S2 Gastrointestional: No tender, No soft, No round, No distended, No pulsatile mass, No organomegaly, No guarding, No rebound, No tenderness, No hernia, No mass, No audible bowel sounds, No abnormal bowel sounds, No abdominal bruits, No spleenomegaly, No other Extremities: No normal range of motion, No non-tender, No normal inspection, No pedal edema, No calf tenderness, No normal capillary refill, No pelvis stable , No calf tenderness, No inflammation, No pedal edema, No slow capillary refill , No swelling, No other, No abrasion, No clubbing, No cyanosis, No ecchymosis, No laceration, No no lower extremity edema bilateral, No significant edema, No tenderness, No wound Neurologic/Psychiatric: no motor/sensory deficits, alert, normal mood/affect, oriented x 3, power is 5/5 both on sides Skin: No rash, No ulcerations A/P: Assessment/Dx: CAD, recent CABG. Paroxysmal atrial fibrillation, Hypertension, Hyperlipidemia, Inflammatory arthritis on Humira Plan: Continue aspirin, Plavix, beta lj, RAINE inhibitor, statin for CAD. Continue amiodarone for now for paroxysmal atrial fibrillation. Likely post surgery. Intensive spirometry was recommended. Thank you for your consultation. Please call me if you have any questions. Susan Muñiz MD, FACP, FACC, FSCAI, FHRS, CCDS Interventional Cardiology Cardiac Electrophysiology Vascular Medicine and Endovascular Interventions Jessica MUÑIZ MD Sep 07, 2018 2:14 pm
[2018-09-07 18:49] VITALS: BP 130/68
[2018-09-07] MEDS: ATORVASTATIN 40 MG (LIPITOR) TABLET PO SCH (20:06)
[2018-09-07] MEDS ORDERED: hydrOXYzine (VISTARIL) 25 MG CAP PO NR (21:00)
[2018-09-07] MEDS: ACETAMINOPHEN 325 MG TABLET PO PRN (22:09)
[2018-09-07] MEDS: diphenhydrAMINE 25 MG TAB (BENADRYL) PO PRN (22:09)
[2018-09-07] MEDS: ARTIFICAL TEARS 0.4 ML UNIT DOSE (REFRESH PLUS) OU PRN (22:10)
[2018-09-08 05:15] VITALS: BP 126/59
[2018-09-08] MEDS: FOLIC ACID 1 MG TAB PO SCH (05:47)
[2018-09-08] MEDS: AMIODARONE 200 MG (CORDARONE) TAB PO SCH ×2 (09:43→21:21)
[2018-09-08] MEDS: CLOPIDOGREL 75 MG (PLAVIX) TABLET PO SCH (09:43)
[2018-09-08] MEDS: lisINopril 10 MG (PRINIVIL) TABLET PO SCH (09:43)
[2018-09-08] MEDS: LORATADINE (CLARITIN) 10 MG TAB PO SCH ×2 (09:43→21:21)
[2018-09-08] MEDS: ASPIRIN E.C. 81 MG (ECOTRIN) TAB PO SCH (09:43)
[2018-09-08] MEDS: BETAMETHASONE DIPRO (AUGMENTED) 0.05% CREAM 15 GM TOP SCH ×2 (09:44→21:24)
[2018-09-08] MEDS: GENTAMICIN 0.1% TOP SCH ×2 (09:44→21:23)
[2018-09-08] MEDS: NYSTATIN CREAM (MYCOSTATIN) 30 GM TUBE TP SCH ×2 (09:44→21:23)
--- NOTE | 2018-09-08 12:35 | Cardiology Progress Note ---
Cardiology SOAP Progress Note Subjective: No cardiac complaints. Mild coughing. Objective: I&O/Vital Signs 09/08/18 09/08/18 05:15 09:00 Temp 99.0 Pulse 74 Resp 20 B/P (MAP) 126/59 (81) Pulse Ox 96 O2 Delivery Room Air Room Air 09/08/18 00:00 Intake Total 780 ml Output Total 500 ml Balance 280 ml Weight (Pounds): 261 Weight (Ounces): 8.0 Weight (Calculated Kilograms): 118.437139 Constitutional: appears stated age, AAO x 3; No apparent distress; well- developed, well-nourished Respiratory: No accessory muscle use, No respiratory distress, No chest tender , No chest expansion is symmetric; chest is bilaterally symmetric; No lungs clear to percussion; lungs clear to auscultation; No crackles, No rhonchi, No rales, No stridor, No wheezing, No pleural rub, No other Cardiovascular: regular rate-rhythm, S1 and S2 Gastrointestional: No tender, No soft, No round, No distended, No pulsatile mass, No organomegaly, No guarding, No rebound, No tenderness, No hernia, No mass, No audible bowel sounds, No abnormal bowel sounds, No abdominal bruits, No spleenomegaly, No other Extremities: No normal range of motion, No non-tender, No normal inspection, No pedal edema, No calf tenderness, No normal capillary refill, No pelvis stable , No calf tenderness, No inflammation, No pedal edema, No slow capillary refill , No swelling, No other, No abrasion, No clubbing, No cyanosis, No ecchymosis, No laceration, No no lower extremity edema bilateral, No significant edema, No tenderness, No wound Neurologic/Psychiatric: no motor/sensory deficits, alert, normal mood/affect, oriented x 3, power is 5/5 both on sides Skin: No rash, No ulcerations A/P: Assessment/Dx: CAD, recent CABG. Paroxysmal atrial fibrillation, Hypertension, Hyperlipidemia, Inflammatory arthritis on Humira Plan: Continue aspirin, Plavix, beta lj, RAINE inhibitor, statin for CAD. Continue amiodarone for now for paroxysmal atrial fibrillation. Likely post surgery. We'll give it for a month. And if no further atrial fibrillation we' ll discontinue it. I will likely perform an event monitor as an outpatient. Intensive spirometry was recommended. Thank you for your consultation. Please call me if you have any questions. Susan Muñiz MD, FACP, FACC, FSCAI, FHRS, CCDS Interventional Cardiology Cardiac Electrophysiology Vascular Medicine and Endovascular Interventions Jessica MUÑIZ MD Sep 08, 2018 12:35
[2018-09-08 17:23] VITALS: BP 165/73
[2018-09-08] MEDS: ATORVASTATIN 40 MG (LIPITOR) TABLET PO SCH (21:21)
[2018-09-08] MEDS: guaiFENesin (MUCINEX) 600 MG TAB PO SCH (21:22)
[2018-09-09] MEDS: ARTIFICAL TEARS 0.4 ML UNIT DOSE (REFRESH PLUS) OU PRN (04:00)
[2018-09-09 05:34] VITALS: BP 148/75
[2018-09-09] MEDS: FOLIC ACID 1 MG TAB PO SCH (06:02)
[2018-09-09] MEDS: ASPIRIN E.C. 81 MG (ECOTRIN) TAB PO SCH (08:05)
[2018-09-09] MEDS: CLOPIDOGREL 75 MG (PLAVIX) TABLET PO SCH (08:05)
[2018-09-09] MEDS: AMIODARONE 200 MG (CORDARONE) TAB PO SCH ×2 (08:05→21:11)
[2018-09-09] MEDS: guaiFENesin (MUCINEX) 600 MG TAB PO SCH ×2 (08:05→21:06)
[2018-09-09] MEDS: lisINopril 10 MG (PRINIVIL) TABLET PO SCH (08:05)
[2018-09-09] MEDS: LORATADINE (CLARITIN) 10 MG TAB PO SCH ×2 (08:05→21:07)
[2018-09-09] MEDS: NYSTATIN CREAM (MYCOSTATIN) 30 GM TUBE TP SCH ×2 (08:06→21:15)
[2018-09-09] MEDS: BETAMETHASONE DIPRO (AUGMENTED) 0.05% CREAM 15 GM TOP SCH ×2 (08:06→21:13)
[2018-09-09] MEDS: GENTAMICIN 0.1% TOP SCH ×2 (08:06→21:00)
--- NOTE | 2018-09-09 08:59 | Physical Therapy Daily Note ---
PT Daily Note-Current Subjective Patient in recliner pre tx, agrees to PT, no complaints of pain. Appearance Patient in recliner post tx with nurse call, phone, tray, all needs met. Mental Status Patient Orientation: Normal For Age Transfers Functional [place] Measure 0=Not Assessed/NA 4=Minimal Assistance 1=Total Assistance 5=Supervision or Setup 2=Maximal Assistance 6=Modified [place] 3=Moderate Assistance 7=Complete IndependenceIRFPAI Quality Coding Scale 6 Independent with activity with or without an assistive device 5 Patient requires set up or clean up by helper. Patient completes activity by themselves 4 Supervision or touching assist (CGA). [place] provide cues , steadying assist 3 The helper provides less than half the effort to complete the activity 2 The helper provides more than half the effort to complete the activity 1 Dependent. The helper does all the effort to complete an activity 7 Patient refused to complete or attempt activity 9 The patient did not perform the activity before the current illness or injury 88 Not attempted due to Medical conditions or safety concerns Transfers (B, C, W/C) (FIM): 4 Scootin Rollin Roll Left to Right (QC): 6 Supine to/from Sit: 4 Sit to/from Stand: 5 Sit to Lying (QC): 3 Sit to Stand (QC): 4 Chair/Ajy-lc-Skxfp Xfer(QC): 4 Bed to/from Chair: 5 Car Transfer (QC): 4 Patient performs bed mobility with mod I except he needs min assist with supine to sit, sit to stand SBA, transfers SBA, car transfer SBA. Weight Bearing Right Lower Extremity: Right Full Weight Bearing Left Lower Extremity: Left Full Weight Bearing Gait Training Gait (FIM): 5 Distance: 150'x2 Walk 10 feet (QC): 4 Walk 50 ft with 2 Turns(QC): 4 Walk 150 ft (QC): 4 Walking 10ft/uneven surface-QC: 4 Gait Level of Assist: 5 Gait Persons Needed: 1 Gait Assistive Device: FWW Patient can ambulate 150' with a rolling walker with SBA (including 50' with at least 2 turns of 90 degrees and 10' over an uneven surface). He gets very SOB by the end, often shaky at the beginning of ambulation, and may need to stand for a few moments to clear light headedness. Wheelchair Training Does the Pt Use a Wheelchair?: No Stair Training Stair Training: Handrails/: 1 handrail Stairs (FIM): 2 #of Steps: 4 1 Step (curb) (QC): 4 4 Steps (QC): 4 Stairs: Pattern: Step to Level of Assist: 5 Patient can go up and down 4 steps using 1 handrail with SBA. Exercises NuStep Minutes: 15 NuStep Workload: 5 (no arms used due to sternal precautions) Treatments bed mobility and transfers, ambulation, functional strengthening, stair training , gait training Assessment Current Status: Fair Progress improving general mobility but does get SOB and needs frequent rest breaks PT Short Term Goals Short Term Goals Time Frame: Sep 11, 2018 Transfers (B,C,W/C) (FIM): 4 Gait (FIM): 4 Gait Distance Comment: 150' Gait Level of Assist: 4 Gait Assistive Device: FWW PT Care Home Goals World[employer] Chief Creative Officer Goals PT Worldwide Chief Creative Officer Goals Time Frame: Sep 25, 2018 Transfers (B,C,W/C) (FIM): 5 Sit to Lying (QC): 4 Lying-Sitting on Side/Bed(QC): 4 (met) Sit to Stand (QC): 4 (met) Rollin (met) Roll Left to Right (QC): 4 (met) Chair/Ldd-es-Hexds Xfer(QC): 4 (met) Car Transfer (QC): 4 (met) Gait (FIM): 5 Distance: 200' Walk 10 feet (QC): 4 (met) Walk 10ft-Uneven Surface(QC): 4 (met) Walk 50ft with 2 Turns (QC): 4 (met) Walk 150 ft (QC): 4 (met) Gait Level of Assist: 5 (met) Gait Assistive Device: FWW Stairs (FIM): 2 (met) # of Steps: 4 (met) 1 Step (curb) (QC): 4 (met) 4 Steps (QC): 4 (met) Stairs Level Of Assist: 4 (met) PT Plan Problem List Problem List: Activity Tolerance, Functional Strength, Safety, Balance, Gait, Transfer, Bed Mobility Treatment/Plan Treatment Plan: Continue Plan of Care Treatment Plan: Bed Mobility, Concurrent Therapy, Education, Functional Activity Deb, Functional Strength, Group Therapy, Gait, Safety, Therapeutic Exercise, Transfers Treatment Duration: Sep 25, 2018 Frequency: At least 5 of 7 days/Wk (IRF) Estimated Hrs Per Day: 1.5 hours per day Patient and/or Family Agrees t: Yes Safety Risks/Education Patient Education: Gait Training, Transfer Techniques, Steps, Reviewed Precautions, Correct Positioning, Safety Issues Teaching Recipient: Patient Teaching Methods: Demonstration, Discussion Response to Teaching: Reinforcement Needed Time/GCodes Time In: 0800 Time Out: 0900 Total Billed Treatment Time: 60 Total Billed Treatment 1 visit GT 15' EX 15' FA 30' SHARON GONZALEZ PT Sep 09, 2018 08:59
--- NOTE | 2018-09-09 11:40 | Cardiology Progress Note ---
Cardiology SOAP Progress Note Subjective: No chest pain. Objective: I&O/Vital Signs 09/09/18 09/09/18 05:34 09:00 Temp 98.0 Pulse 84 Resp 16 B/P (MAP) 148/75 (99) Pulse Ox 94 O2 Delivery Room Air Room Air 09/09/18 00:00 Intake Total 900 ml Output Total 950 ml Balance -50 ml Weight (Pounds): 261 Weight (Ounces): 8.0 Weight (Calculated Kilograms): 118.264611 Constitutional: appears stated age, AAO x 3; No apparent distress; well- developed, well-nourished Respiratory: No accessory muscle use, No respiratory distress, No chest tender , No chest expansion is symmetric; chest is bilaterally symmetric; No lungs clear to percussion; lungs clear to auscultation; No crackles, No rhonchi, No rales, No stridor, No wheezing, No pleural rub, No other Cardiovascular: regular rate-rhythm, S1 and S2 Gastrointestional: No tender, No soft, No round, No distended, No pulsatile mass, No organomegaly, No guarding, No rebound, No tenderness, No hernia, No mass, No audible bowel sounds, No abnormal bowel sounds, No abdominal bruits, No spleenomegaly, No other Extremities: No normal range of motion, No non-tender, No normal inspection, No pedal edema, No calf tenderness, No normal capillary refill, No pelvis stable , No calf tenderness, No inflammation, No pedal edema, No slow capillary refill , No swelling, No other, No abrasion, No clubbing, No cyanosis, No ecchymosis, No laceration, No no lower extremity edema bilateral, No significant edema, No tenderness, No wound Neurologic/Psychiatric: no motor/sensory deficits, alert, normal mood/affect, oriented x 3, power is 5/5 both on sides Skin: No rash, No ulcerations A/P: Assessment/Dx: CAD, recent CABG. Paroxysmal atrial fibrillation, Hypertension, Hyperlipidemia, Inflammatory arthritis on Humira Plan: Continue aspirin, Plavix, beta lj, RAINE inhibitor, statin for CAD. Continue amiodarone for now for paroxysmal atrial fibrillation. Likely post surgery. We'll give it for a month. And if no further atrial fibrillation we' ll discontinue it. I will likely perform an event monitor as an outpatient. Intensive spirometry was recommended. Thank you for your consultation. Please call me if you have any questions. Susan Muñiz MD, FACP, FACC, FSCAI, FHRS, CCDS Interventional Cardiology Cardiac Electrophysiology Vascular Medicine and Endovascular Interventions Jessica MUÑIZ MD Sep 09, 2018 11:40 am
--- NOTE | 2018-09-09 15:10 | Physical Therapy Daily Note ---
PT Daily Note-Current Subjective Pt agreeable to PT. Reports he hopes to discharge home on Sunday. Reports he feels ready. Transfers Functional [place] Measure 0=Not Assessed/NA 4=Minimal Assistance 1=Total Assistance 5=Supervision or Setup 2=Maximal Assistance 6=Modified [place] 3=Moderate Assistance 7=Complete IndependenceIRFPAI Quality Coding Scale 6 Independent with activity with or without an assistive device 5 Patient requires set up or clean up by helper. Patient completes activity by themselves 4 Supervision or touching assist (CGA). [place] provide cues , steadying assist 3 The helper provides less than half the effort to complete the activity 2 The helper provides more than half the effort to complete the activity 1 Dependent. The helper does all the effort to complete an activity 7 Patient refused to complete or attempt activity 9 The patient did not perform the activity before the current illness or injury 88 Not attempted due to Medical conditions or safety concerns Weight Bearing Right Lower Extremity: Right Full Weight Bearing Left Lower Extremity: Left Full Weight Bearing Treatments Treatment consisted of training on sit to stand with maintenance of sternal precautions. Sit to stand x 5 reps indep. Pt then ambulated 150 ft x 4 reps with FWW with SBA. Pt was mod indep with transferring into bed at end of treatment. Pt in bed with needs met post treatment. Assessment Current Status: Good Progress Progressing and making functional gains. PT Short Term Goals Short Term Goals Time Frame: Sep 11, 2018 Transfers (B,C,W/C) (FIM): 4 (met) Gait (FIM): 4 (met) Gait Distance Comment: 150' Gait Level of Assist: 4 Gait Assistive Device: FWW PT Regional Sales Engineer Goals Senior Living Goals PT Regional Sales Engineer Goals Time Frame: Sep 25, 2018 Transfers (B,C,W/C) (FIM): 5 Sit to Lying (QC): 4 Lying-Sitting on Side/Bed(QC): 4 (met) Sit to Stand (QC): 4 (met) Rollin (met) Roll Left to Right (QC): 4 (met) Chair/Fal-fc-Qphcm Xfer(QC): 4 (met) Car Transfer (QC): 4 (met) Gait (FIM): 5 Distance: 200' Walk 10 feet (QC): 4 (met) Walk 10ft-Uneven Surface(QC): 4 (met) Walk 50ft with 2 Turns (QC): 4 (met) Walk 150 ft (QC): 4 (met) Gait Level of Assist: 5 (met) Gait Assistive Device: FWW Stairs (FIM): 2 (met) # of Steps: 4 (met) 1 Step (curb) (QC): 4 (met) 4 Steps (QC): 4 (met) Stairs Level Of Assist: 4 (met) PT Plan Problem List Problem List: Activity Tolerance, Functional Strength, Safety, Balance, Gait, Transfer, Bed Mobility Treatment/Plan Treatment Plan: Continue Plan of Care Treatment Plan: Bed Mobility, Concurrent Therapy, Education, Functional Activity Deb, Functional Strength, Group Therapy, Gait, Safety, Therapeutic Exercise, Transfers Treatment Duration: Sep 25, 2018 Frequency: At least 5 of 7 days/Wk (IRF) Estimated Hrs Per Day: 1.5 hours per day Patient and/or Family Agrees t: Yes Safety Risks/Education Patient Education: Transfer Techniques, Safety Issues Teaching Recipient: Patient Teaching Methods: Demonstration Response to Teaching: Return Demonstration Time/GCodes Time In: 1335 Time Out: 1405 Total Billed Treatment Time: 30 Total Billed Treatment visit GT 30 DANNY JACKMAN PT Sep 09, 2018 15:10
--- NOTE | 2018-09-09 15:37 | Occupational Ther Daily Note ---
OT Current Status-Daily Note Subjective Pt seen inroom, up in recliner, agreeable to OT. Would like to shower. No pain mentioned unless he coughs Appearance Alert, cooperative Mental Status/Objective Functional [place] Measure 0=Not Assessed/NA 4=Minimal Assistance 1=Total Assistance 5=Supervision or Setup 2=Maximal Assistance 6=Modified [place] 3=Moderate Assistance 7=Complete [place] ADL-Treatment Pt got up from recliner with SBA and walked with SBA, FWW to bathroom. He got in shower with SBA and washed/dried all parts, using hand held shower, shower bench and grab bars. He returned to recliner to dress and donned pants and shirt with setup, SBA using soft sock aid to don socks. He walked back to bathroom to stand at sink SBA, to brush teeth and shave, taking a sitting recovery break between tasks. He stood for approx 10 minutes at sink, FWW for balance as needed. Pt educ on pacing himself and occasional reminders to rest until he was no longer breathing hard before going on to next ADL. All ADLs took longer that usual. Pt left up in recliner, all needs met, setting up his own lunch and feeding himself without help. Functional [place] Measure 0=Not Assessed/NA 4=Minimal Assistance 1=Total Assistance 5=Supervision or Setup 2=Maximal Assistance 6=Modified [place] 3=Moderate Assistance 7=Complete IndependenceIRFPAI Quality Coding Scale 6 Independent with activity with or without an assistive device 5 Patient requires set up or clean up by helper. Patient completes activity by themselves 4 Supervision or touching assist (CGA). [place] provide cues , steadying assist 3 The helper provides less than half the effort to complete the activity 2 The helper provides more than half the effort to complete the activity 1 Dependent. The helper does all the effort to complete an activity 7 Patient refused to complete or attempt activity 9 The patient did not perform the activity before the current illness or injury 88 Not attempted due to Medical conditions or safety concerns Eating (FIM): 6 Grooming (FIM): 5 (SBA) Bathing (FIM): 5 (SBA) Upper Body (FIM): 5 (setup) Lower Body Dressing (FIM): 5 (setup, SBA) Shower Transfer(FIM): 5 (SBA) Education OT Patient Education: Energy conservation, Modified ADL techniques, Purpose of tx/functional activities Teaching Recipient: Patient Teaching Methods: Discussion Response to Teaching: Verbalize Understanding, Return Demonstration OT Short Term Goals Short Term Goals Time Frame: Sep 11, 2018 Upper Body Dressing(FIM): 5 Lower Body Dressing(FIM): 5 Toileting(FIM): 5 Transfers (B,C,W/C) (FIM): 4 (met) Toilet/Commode Transfer(FIM): 5 Additional Short Term Goals: 1-Demonstrate ADL Tasks, 2-Verbalize Understanding , 3-ImproveStrength/Deb 1=Demonstrate adherence to instructed precautions during ADL tasks. 2=Patient will verbalize/demonstrate understanding of assistive devices/ modifications for ADL. 3=Patient will improve strength/tolerance for activity to enable patient to perform ADL's. OT Vault Mechanic Goals Custodial Goals Time Frame: Sep 25, 2018 Eating (FIM): 6 Eating (QC): 6 Groomin Oral Hygiene (QC): 6 Bathing(FIM): 6 Shower/Bathe Self (QC): 6 Upper Body Dressing(FIM): 6 Upper Body Dressing (QC): 6 Lower Body Dressing(FIM): 6 Lower Body Dressing (QC): 6 On/Off Footwear (QC): 6 Toileting(FIM): 6 Toileting Hygiene (QC): 6 Toilet/Commode Transfer(FIM): 6 Toilet/Commode Transfer (QC): 6 Tub Transfer(FIM): 6 Shower Transfer(FIM): 6 Additional Goals: 1-Demonstrate ADL Tasks, 2-Verbalize Understanding, 3- ImproveStrength/Deb 1=Demonstrate adherence to instructed precautions during ADL tasks. 2=Patient will verbalize/demonstrate understanding of assistive devices/ modifications for ADL. 3=Patient will improve strength/tolerance for activity to enable patient to perform ADL's. OT Education/Plan Problem List/Assessment Pt would benefit from skilled oT to increase his independence in basic self care to allow him to safely return to his home after cardiac surgery Discharge Recommendations Plan/Recommendations: Continue POC Treatment Plan/Plan of Care Patient would benefit from OT for education, treatment and training to promote independence in ADL's, mobility, safety and/or upper extremity function for ADL' s. Plan of Care: ADL Retraining, Functional Mobility, Group Exercise/Act as Ind ( education, exercise, activity tolerance, functional activities, socialization), UE Funct Exercise/Act, UE Neuromus Re-Ed/Coord, OTHER (energy conservation educaiton) Treatment Duration: Sep 25, 2018 Frequency: At least 5 of 7 days/Wk (IRF) Estimated Hrs Per Day: 1.5 hours per day Agreement: Yes Rehab Potential: Good Time/GCodes Start Time: 10:40 Stop Time: 11:45 Total Time Billed (hr/min): 65 Billed Treatment Time visit, 65 minutes ADL JENNIFER JACK OT Sep 09, 2018 15:37
--- NOTE | 2018-09-09 15:43 | Occupational Ther Daily Note ---
OT Current Status-Daily Note Subjective Pt seen inroom, up in recliner, agreeable to OT. No pain mentioned Appearance Alert, cooperative Mental Status/Objective Functional [place] Measure 0=Not Assessed/NA 4=Minimal Assistance 1=Total Assistance 5=Supervision or Setup 2=Maximal Assistance 6=Modified [place] 3=Moderate Assistance 7=Complete [place] ADL-Treatment Functional [place] Measure 0=Not Assessed/NA 4=Minimal Assistance 1=Total Assistance 5=Supervision or Setup 2=Maximal Assistance 6=Modified [place] 3=Moderate Assistance 7=Complete IndependenceIRFPAI Quality Coding Scale 6 Independent with activity with or without an assistive device 5 Patient requires set up or clean up by helper. Patient completes activity by themselves 4 Supervision or touching assist (CGA). [place] provide cues , steadying assist 3 The helper provides less than half the effort to complete the activity 2 The helper provides more than half the effort to complete the activity 1 Dependent. The helper does all the effort to complete an activity 7 Patient refused to complete or attempt activity 9 The patient did not perform the activity before the current illness or injury 88 Not attempted due to Medical conditions or safety concerns Other Treatment Pt got up from recliner without help and walked SBA, FWW to gym. He was able to get up and down from chair with SBA. Pt completed 10 minutes bilat UE exercise on arm bike set at a minimal 10W resistance, taking a break every two minutes for pacing and for recovery. To increase overall activity tolerance for ADLs and manage energy. Care transferred to PT at end of session. Education OT Patient Education: Purpose of tx/functional activities Teaching Recipient: Patient Teaching Methods: Discussion Response to Teaching: Verbalize Understanding, Return Demonstration OT Short Term Goals Short Term Goals Time Frame: Sep 11, 2018 Upper Body Dressing(FIM): 5 Lower Body Dressing(FIM): 5 Toileting(FIM): 5 Transfers (B,C,W/C) (FIM): 4 (met) Toilet/Commode Transfer(FIM): 5 Additional Short Term Goals: 1-Demonstrate ADL Tasks, 2-Verbalize Understanding , 3-ImproveStrength/Deb 1=Demonstrate adherence to instructed precautions during ADL tasks. 2=Patient will verbalize/demonstrate understanding of assistive devices/ modifications for ADL. 3=Patient will improve strength/tolerance for activity to enable patient to perform ADL's. OT Jail Goals Jail Goals Time Frame: Sep 25, 2018 Eating (FIM): 6 Eating (QC): 6 Groomin Oral Hygiene (QC): 6 Bathing(FIM): 6 Shower/Bathe Self (QC): 6 Upper Body Dressing(FIM): 6 Upper Body Dressing (QC): 6 Lower Body Dressing(FIM): 6 Lower Body Dressing (QC): 6 On/Off Footwear (QC): 6 Toileting(FIM): 6 Toileting Hygiene (QC): 6 Toilet/Commode Transfer(FIM): 6 Toilet/Commode Transfer (QC): 6 Tub Transfer(FIM): 6 Shower Transfer(FIM): 6 Additional Goals: 1-Demonstrate ADL Tasks, 2-Verbalize Understanding, 3- ImproveStrength/Deb 1=Demonstrate adherence to instructed precautions during ADL tasks. 2=Patient will verbalize/demonstrate understanding of assistive devices/ modifications for ADL. 3=Patient will improve strength/tolerance for activity to enable patient to perform ADL's. OT Education/Plan Problem List/Assessment Pt would benefit from skilled oT to increase his independence in basic self care to allow him to safely return to his home after cardiac surgery Discharge Recommendations Plan/Recommendations: Continue POC Treatment Plan/Plan of Care Patient would benefit from OT for education, treatment and training to promote independence in ADL's, mobility, safety and/or upper extremity function for ADL' s. Plan of Care: ADL Retraining, Functional Mobility, Group Exercise/Act as Ind ( education, exercise, activity tolerance, functional activities, socialization), UE Funct Exercise/Act, UE Neuromus Re-Ed/Coord, OTHER (energy conservation educaiton) Treatment Duration: Sep 25, 2018 Frequency: At least 5 of 7 days/Wk (IRF) Estimated Hrs Per Day: 1.5 hours per day Agreement: Yes Rehab Potential: Good Time/GCodes Start Time: 13:00 Stop Time: 13:30 Total Time Billed (hr/min): 30 Billed Treatment Time visit, 30 minutes exercise JENNIFER JACK OT Sep 09, 2018 15:43
[2018-09-09 18:37] VITALS: BP 120/60
--- NOTE | 2018-09-09 20:42 | PM & R (SOAP) Progress Note ---
Subjective This was a face to face visit with the patient. Date Seen by Provider: Sep 09, 2018 Time Seen by Provider: 20:10 Subjective/Events-last exam Patient was seen in his room this evening Pain control better with Tramadol.patient SBA for gait with walker Objective Physician Exam Last Set of Vital Signs Vital Signs Date Time Temp Pulse Resp B/P (MAP) Pulse Ox O2 Delivery O2 Flow Rate FiO2 09/09/18 18:37 97.9 76 16 120/60 (80) 96 Room Air Capillary Refill : I&O Intake and Output 09/08/18 23:59 Intake Total 1350 ml Output Total 1350 ml Balance 0 ml Intake Oral 1350 ml Output Urine Total 1350 ml # Voids 4 General: Alert, Oriented X3, Cooperative, No Acute Distress HEENT: Atraumatic, PERRLA, EOMI, Mucous Memb Moist/[place] Neck: Supple, No JVD Lungs: Clear to Auscultation Heart: Regular Rate Abdomen: Normal Bowel Sounds, Soft, No Tenderness Extremities: No Edema Skin: Other (Sternotomy site healing well Plus psoriatic rash) Neuro: Other ( Strength BU limbs 4/5 Hip flex 4/5 distal 5/5) Assessment/Plan Assessment and Plan general debil s/p CABG Immunosuppression currently with Humira and Methotrexate on hold Seborrheic dermatitis Inflammatory Arthritis Postop PAF on amiodarone appreciate Cardiology note Postop constipation treated Postop anemia Hypocalcemia Plan Continue PT/OT F/U with Cardiology and PCP prn Discharge set tentatively for 18 Co-Morbidities that are continuing to impact the rehab process: (include details ) ИРИНА CHERRY MD Sep 09, 2018 20:42
[2018-09-09 20:55] VITALS: BP 149/74
[2018-09-09] MEDS: ATORVASTATIN 40 MG (LIPITOR) TABLET PO SCH (21:07)
[2018-09-09] MEDS: diphenhydrAMINE 25 MG TAB (BENADRYL) PO PRN (21:07)
--- NOTE | 2018-09-09 21:54 | Progress Note (SOAP) ---
Subjective Subjective Date Seen by Provider: Sep 09, 2018 Time Seen by Provider: 08:00 73 yo M working with PT this AM He had a tough weekend but this AM he feels good. He feels like he is improving well and wonders about when he will be discharged home. Review of Systems General: No Chills, No Night Sweats HEENT: No Eye Pain Pulmonary: Cough, Pleuritic Chest Pain Cardiovascular: Chest Pain Gastrointestinal: No: Nausea, Abdominal Pain Genitourinary: No Dysuria, No Frequency Musculoskeletal: No: neck pain Neurological: Weakness Objective Exam Vital Signs Vital Signs Date Time Temp Pulse Resp B/P (MAP) Pulse Ox O2 Delivery O2 Flow Rate FiO2 09/09/18 21:00 Room Air 09/09/18 18:37 97.9 76 16 120/60 (80) 96 Room Air 09/09/18 09:00 Room Air 09/09/18 05:34 98.0 84 16 148/75 (99) 94 Room Air I & O 09/09/18 07:00 Intake Total 1320 ml Output Total 1850 ml Balance -530 ml General Appearance: No Apparent Distress, WD/WN, Obese HEENT: PERRL/EOMI Neck: Non Tender, Supple Respiratory: Chest Non Tender, Lungs Clear, Normal Breath Sounds, No Accessory Muscle Use, No Respiratory Distress Cardiovascular: Regular Rate, Rhythm, No Edema, No Gallop, No JVD, No Murmur, Normal Peripheral Pulses Gastrointestinal: Normal Bowel Sounds, Non Tender, Soft Rectal: Deferred Back: Normal Inspection, No CVA Tenderness Extremity: Normal Capillary Refill, No Calf Tenderness Neurologic/Psychiatric: Alert, Oriented x3, No Motor/Sensory Deficits, Normal Mood/Affect Skin: Warm/Dry Lymphatic: No Adenopathy Assessment/Plan Assessment/Plan Admission Dx CAD s/p CABG HTN physical debility weakness Assessment and Plan 73 yo M *coronary artery disease s/p CABG 08/29/18- doing well - follow up with Dr Barraza Sep 25. continue plavix, statin. * physical debility- inpatient rehab- working with PT/OT. * HTN- under good control. *psoriatic arthritis- holding humira, holding methotrexate- as they will delay healing. *paroxysmal atrial fibrillation- in NSR, suspect it was related to stress/CABG procedure. on amiodarone cardiology to d/c in 1 month if no new episodes occur. Dispo: continue inpatient rehab- possible discharge to home on 09/11/18 Problems: (1) S/P CABG (coronary artery bypass graft) (2) Cough (3) Psoriatic arthritis (4) Hypertension Qualifiers: Qualified Codes: I10 - Essential (primary) hypertension (5) Atrial fib/flutter, transient (6) Obesity Qualifiers: Admission Dx CAD s/p CABG HTN physical debility weakness Clinical Quality Measures Admission Status Admission Dx CAD s/p CABG HTN physical debility weakness DVT/VTE Risk/Contraindication: Risk Factor Score Per Nursin RFS Level Per Nursing on Admit: 4+=Very High AISSATOU MIRAMONTES MD Sep 09, 2018 21:54
[2018-09-10 06:06] VITALS: BP 150/70
[2018-09-10] MEDS: FOLIC ACID 1 MG TAB PO SCH (06:20)
[2018-09-10] MEDS: BETAMETHASONE DIPRO (AUGMENTED) 0.05% CREAM 15 GM TOP SCH ×2 (08:29→20:41)
[2018-09-10] MEDS: ASPIRIN E.C. 81 MG (ECOTRIN) TAB PO SCH (08:29)
[2018-09-10] MEDS: CLOPIDOGREL 75 MG (PLAVIX) TABLET PO SCH (08:29)
[2018-09-10] MEDS: lisINopril 10 MG (PRINIVIL) TABLET PO SCH (08:29)
[2018-09-10] MEDS: guaiFENesin (MUCINEX) 600 MG TAB PO SCH ×2 (08:29→20:37)
[2018-09-10] MEDS: NYSTATIN CREAM (MYCOSTATIN) 30 GM TUBE TP SCH ×2 (08:29→20:41)
[2018-09-10] MEDS: AMIODARONE 200 MG (CORDARONE) TAB PO SCH ×2 (08:29→20:38)
[2018-09-10] MEDS: LORATADINE (CLARITIN) 10 MG TAB PO SCH ×2 (08:29→20:38)
[2018-09-10] MEDS: GENTAMICIN 0.1% TOP SCH ×2 (08:30→20:41)
--- NOTE | 2018-09-10 10:09 | Cardiology Progress Note ---
Cardiology SOAP Progress Note Subjective: No cardiac complaints. Objective: I&O/Vital Signs 09/10/18 09/10/18 06:06 09:00 Temp 97.7 Pulse 82 Resp 20 B/P (MAP) 150/70 (96) Pulse Ox 97 O2 Delivery Room Air 09/10/18 00:00 Intake Total 800 ml Balance 800 ml Weight (Pounds): 261 Weight (Ounces): 8.0 Weight (Calculated Kilograms): 118.054578 Constitutional: appears stated age, AAO x 3; No apparent distress; well- developed, well-nourished Respiratory: No accessory muscle use, No respiratory distress, No chest tender , No chest expansion is symmetric; chest is bilaterally symmetric; No lungs clear to percussion; lungs clear to auscultation; No crackles, No rhonchi, No rales, No stridor, No wheezing, No pleural rub, No other Cardiovascular: regular rate-rhythm, S1 and S2 Gastrointestional: No tender, No soft, No round, No distended, No pulsatile mass, No organomegaly, No guarding, No rebound, No tenderness, No hernia, No mass, No audible bowel sounds, No abnormal bowel sounds, No abdominal bruits, No spleenomegaly, No other Extremities: No normal range of motion, No non-tender, No normal inspection, No pedal edema, No calf tenderness, No normal capillary refill, No pelvis stable , No calf tenderness, No inflammation, No pedal edema, No slow capillary refill , No swelling, No other, No abrasion, No clubbing, No cyanosis, No ecchymosis, No laceration, No no lower extremity edema bilateral, No significant edema, No tenderness, No wound Neurologic/Psychiatric: no motor/sensory deficits, alert, normal mood/affect, oriented x 3, power is 5/5 both on sides Skin: No rash, No ulcerations A/P: Assessment/Dx: CAD, recent CABG. Paroxysmal atrial fibrillation, Hypertension, Hyperlipidemia, Inflammatory arthritis on Humira Plan: Continue aspirin, Plavix, beta lj, RAINE inhibitor, statin for CAD. Continue amiodarone for now for paroxysmal atrial fibrillation. Likely post surgery. We'll give it for a month. And if no further atrial fibrillation we' ll discontinue it. I will likely perform an event monitor as an outpatient. Intensive spirometry was recommended. likely discharge tomorrow. Will follow up in office in two to three weeks. Thank you for your consultation. Please call me if you have any questions. Susan Muñiz MD, FACP, FACC, FSCAI, FHRS, CCDS Interventional Cardiology Cardiac Electrophysiology Vascular Medicine and Endovascular Interventions Jessica MUÑIZ MD Sep 10, 2018 10:09
--- NOTE | 2018-09-10 10:56 | Occupational Ther Daily Note ---
OT Current Status-Daily Note Subjective No pain reported. Appearance Pt. up in chair. Agrees to shower. Mental Status/Objective Patient Orientation: Person, Place Functional [place] Measure 0=Not Assessed/NA 4=Minimal Assistance 1=Total Assistance 5=Supervision or Setup 2=Maximal Assistance 6=Modified [place] 3=Moderate Assistance 7=Complete [place] ADL-Treatment Functional [place] Measure 0=Not Assessed/NA 4=Minimal Assistance 1=Total Assistance 5=Supervision or Setup 2=Maximal Assistance 6=Modified [place] 3=Moderate Assistance 7=Complete IndependenceIRFPAI Quality Coding Scale 6 Independent with activity with or without an assistive device 5 Patient requires set up or clean up by helper. Patient completes activity by themselves 4 Supervision or touching assist (CGA). [place] provide cues , steadying assist 3 The helper provides less than half the effort to complete the activity 2 The helper provides more than half the effort to complete the activity 1 Dependent. The helper does all the effort to complete an activity 7 Patient refused to complete or attempt activity 9 The patient did not perform the activity before the current illness or injury 88 Not attempted due to Medical conditions or safety concerns Grooming (FIM): 6 (Mod I standing at sink to comb hair. Used walker.) Bathing (FIM): 6 (Mod I in shower with increased time needed.) Shower/Bathe Self (QC): 6 Upper Body (FIM): 6 Upper Body Dressing (QC): 5 (SBA to don socks with equipment. Requires cues for this. Pt. able to don underwear and pants with Mod I and increased time.) Lower Body Dressing (FIM): 5 Lower Body Dressing (QC): 4 On/Off Footwear (QC): 4 Toileting (FIM): 6 Toileting Hygiene (QC): 6 Transfers (B, C, W/C) (FIM): 6 (Mod I using walker.) Toilet/Commode Transfer (FIM): 6 Toilet Transfer (QC): 6 Shower Transfer(FIM): 6 Other Treatment Pt. requires increased time to complete tasks. Pt. utilizes sock aide for socks as he will have one at home. Requires cues at times to don correctly. Pt. able to don all other clothing items with no difficulty. Pt. transferred back to bed with all needs met. Transferred sit-supine with Mod I. All needs met. Education OT Patient Education: Correct positioning, Energy conservation, Modified ADL techniques, Progress toward Goal/Update tx plan, Purpose of tx/functional activities, Reviewed precautions, Rehab process, Transfer techniques, Use of adapted equipment Teaching Recipient: Patient Teaching Methods: Demonstration, Discussion Response to Teaching: Verbalize Understanding, Return Demonstration OT Short Term Goals Short Term Goals Time Frame: Sep 11, 2018 Upper Body Dressing(FIM): 5 Lower Body Dressing(FIM): 5 Toileting(FIM): 5 Transfers (B,C,W/C) (FIM): 4 (met) Toilet/Commode Transfer(FIM): 5 Additional Short Term Goals: 1-Demonstrate ADL Tasks, 2-Verbalize Understanding , 3-ImproveStrength/Deb 1=Demonstrate adherence to instructed precautions during ADL tasks. 2=Patient will verbalize/demonstrate understanding of assistive devices/ modifications for ADL. 3=Patient will improve strength/tolerance for activity to enable patient to perform ADL's. OT Residential Goals Residential Goals Time Frame: Sep 25, 2018 Eating (FIM): 6 Eating (QC): 6 Groomin Oral Hygiene (QC): 6 Bathing(FIM): 6 Shower/Bathe Self (QC): 6 Upper Body Dressing(FIM): 6 Upper Body Dressing (QC): 6 Lower Body Dressing(FIM): 6 Lower Body Dressing (QC): 6 On/Off Footwear (QC): 6 Toileting(FIM): 6 Toileting Hygiene (QC): 6 Toilet/Commode Transfer(FIM): 6 Toilet/Commode Transfer (QC): 6 Tub Transfer(FIM): 6 Shower Transfer(FIM): 6 Additional Goals: 1-Demonstrate ADL Tasks, 2-Verbalize Understanding, 3- ImproveStrength/Deb 1=Demonstrate adherence to instructed precautions during ADL tasks. 2=Patient will verbalize/demonstrate understanding of assistive devices/ modifications for ADL. 3=Patient will improve strength/tolerance for activity to enable patient to perform ADL's. OT Education/Plan Problem List/Assessment Assessment: Decreased Activ Tolerance Pt would benefit from skilled oT to increase his independence in basic self care to allow him to safely return to his home after cardiac surgery Discharge Recommendations Plan/Recommendations: Continue POC Therapy D/C Recommendations: Home w/ Family Support Equpiment Recommendations-D/C: Sock Aide Treatment Plan/Plan of Care Treatment,Training & Education: Yes Patient would benefit from OT for education, treatment and training to promote independence in ADL's, mobility, safety and/or upper extremity function for ADL' s. Plan of Care: ADL Retraining, Functional Mobility, Group Exercise/Act as Ind ( education, exercise, activity tolerance, functional activities, socialization), UE Funct Exercise/Act, UE Neuromus Re-Ed/Coord, OTHER (energy conservation educaiton) Treatment Duration: Sep 25, 2018 Frequency: At least 5 of 7 days/Wk (IRF) Estimated Hrs Per Day: 1.5 hours per day Agreement: Yes Rehab Potential: Good Time/GCodes Start Time: 10:00 Stop Time: 11:00 Total Time Billed (hr/min): 60 Billed Treatment Time 1, ADL x 4 SYLVIA ELLIS OT Sep 10, 2018 10:56
--- NOTE | 2018-09-10 11:03 | Physical Therapy Daily Note ---
PT Daily Note-Current Subjective Pt sitting up in bed upon arrival. Pt agrees to PT. Pt to discharge tomorrow so FIM scoring for tx. Pain Numeric Pain Scale: 3 Location: Incisional Location Body Site: Chest Pain Description: Ache Mental Status Patient Orientation: Person, Place, Time, Situation Attachments: Other-See Comments (Heart Pillow as needed for transfers & coughing) Transfers Functional [place] Measure 0=Not Assessed/NA 4=Minimal Assistance 1=Total Assistance 5=Supervision or Setup 2=Maximal Assistance 6=Modified [place] 3=Moderate Assistance 7=Complete IndependenceIRFPAI Quality Coding Scale 6 Independent with activity with or without an assistive device 5 Patient requires set up or clean up by helper. Patient completes activity by themselves 4 Supervision or touching assist (CGA). [place] provide cues , steadying assist 3 The helper provides less than half the effort to complete the activity 2 The helper provides more than half the effort to complete the activity 1 Dependent. The helper does all the effort to complete an activity 7 Patient refused to complete or attempt activity 9 The patient did not perform the activity before the current illness or injury 88 Not attempted due to Medical conditions or safety concerns Transfers (B, C, W/C) (FIM): 6 Scootin Rollin Roll Left to Right (QC): 6 Supine to/from Sit: 6 Sit to/from Stand: 6 Sit to Lying (QC): 6 Sit to Stand (QC): 6 Chair/Qoy-gc-Ilysn Xfer(QC): 6 Bed to/from Chair: 6 Car Transfer (QC): 6 Weight Bearing Right Lower Extremity: Right Full Weight Bearing Left Lower Extremity: Left Full Weight Bearing Gait Training Does the Patient Walk?: Yes Distance (FIM): 3=150 ft Distance: 200' Walk 10 feet (QC): 6 Walk 50 ft with 2 Turns(QC): 6 Walk 150 ft (QC): 6 Walking 10ft/uneven surface-QC: 6 Gait Level of Assist: 6 Gait Persons Needed: 1 Gait Assistive Device: FWW Pt has slow but steady tara, no LOB. Pt fatigues and needs occasional rest breaks. Wheelchair Training Does the Pt Use a Wheelchair?: No Balance Picking up an Object (QC): 88 Special Test Comments Pt is not tested on this item due to medical safety issue. Treatments Pt completes bed mobility, sit to stand transfers, car transfer, walking across varying surface as well as ambulation (all at Mod I). Pt is aware of Cardiac Precautions and observes them well. Pt returns to room at end of tx to rest in recliner with all needs met. Assessment Current Status: Good Progress Pt fatigues and needs occasional rest breaks. PT Short Term Goals Short Term Goals Time Frame: Sep 11, 2018 Transfers (B,C,W/C) (FIM): 4 (met) Gait (FIM): 4 (met) Gait Distance Comment: 150' Gait Level of Assist: 4 Gait Assistive Device: FWW PT Prison Goals Student Worker Goals PT Student Worker Goals Time Frame: Sep 25, 2018 Transfers (B,C,W/C) (FIM): 5 Sit to Lying (QC): 4 Lying-Sitting on Side/Bed(QC): 4 (met) Sit to Stand (QC): 4 (met) Rollin (met) Roll Left to Right (QC): 4 (met) Chair/Emx-mc-Nxeeh Xfer(QC): 4 (met) Car Transfer (QC): 4 (met) Gait (FIM): 5 Distance: 200' Walk 10 feet (QC): 4 (met) Walk 10ft-Uneven Surface(QC): 4 (met) Walk 50ft with 2 Turns (QC): 4 (met) Walk 150 ft (QC): 4 (met) Gait Level of Assist: 5 (met) Gait Assistive Device: FWW Stairs (FIM): 2 (met) # of Steps: 4 (met) 1 Step (curb) (QC): 4 (met) 4 Steps (QC): 4 (met) Stairs Level Of Assist: 4 (met) PT Plan Problem List Problem List: Activity Tolerance Treatment/Plan Treatment Plan: Continue Plan of Care Treatment Plan: Bed Mobility, Concurrent Therapy, Education, Functional Activity Edb, Functional Strength, Group Therapy, Gait, Safety, Therapeutic Exercise, Transfers Treatment Duration: Sep 25, 2018 Frequency: At least 5 of 7 days/Wk (IRF) Estimated Hrs Per Day: 1.5 hours per day Patient and/or Family Agrees t: Yes Safety Risks/Education Patient Education: Gait Training, Transfer Techniques, Correct Positioning, Safety Issues Teaching Recipient: Patient Teaching Methods: Demonstration, Discussion Response to Teaching: Verbalize Understanding Time/GCodes Time In: 800 Time Out: 845 Total Billed Treatment Time: 45 Total Billed Treatment 1, FA x3 (45m) G Codes Necessary: SEKOU Bruno PTA Sep 10, 2018 11:03
--- NOTE | 2018-09-10 14:01 | PM & R (SOAP) Progress Note ---
Subjective This was a face to face visit with the patient. Date Seen by Provider: Sep 10, 2018 Time Seen by Provider: 07:50 Subjective/Events-last exam Patient was seen in his room this AM.Patient SBA for gait with walker.Patient looking forward to discharge tomorrow Asks about resuming sexual relations defer to card service re that Objective Physician Exam Last Set of Vital Signs Vital Signs Date Time Temp Pulse Resp B/P (MAP) Pulse Ox O2 Delivery O2 Flow Rate FiO2 09/10/18 09:00 Room Air 09/10/18 06:06 97.7 82 20 150/70 (96) 97 Capillary Refill : I&O Intake and Output 09/10/18 00:00 Intake Total 1220 ml Output Total 900 ml Balance 320 ml Intake Oral 1220 ml Output Urine Total 900 ml # Voids 4 # Bowel Movements 1 General: Alert, Oriented X3, Cooperative, No Acute Distress HEENT: Atraumatic, PERRLA, EOMI, Mucous Memb Moist/[place] Neck: Supple, No JVD Lungs: Clear to Auscultation Heart: Regular Rate Abdomen: Normal Bowel Sounds, Soft, No Tenderness Extremities: No Edema Skin: Other (Sternotomy site healing well Plus psoriatic rash) Neuro: Other ( Strength BU limbs 4/5 Hip flex 4/5 distal 5/5) Assessment/Plan Assessment and Plan General debil s/p CABG Immunosuppression currently with Humira and methotrexate on hold Seborrheic dermatitis Inflammatory arthritis Postop PAF on amiodarone appreciate Card note Postop constipation treated Postop anemia Hypocalcemia Plan Continue PT/OT Team Conference tomorrow Co-Morbidities that are continuing to impact the rehab process: (include details ) ИРИНА CHERRY MD Sep 10, 2018 14:01
--- NOTE | 2018-09-10 14:15 | Occupational Ther Daily Note ---
OT Current Status-Daily Note Subjective No pain reported. Pt. does use his pillow to hold to his chest when coughing for comfort. Appearance Pt. agrees to work with OT. Mental Status/Objective Patient Orientation: Person, Place, Time, Situation Functional [place] Measure 0=Not Assessed/NA 4=Minimal Assistance 1=Total Assistance 5=Supervision or Setup 2=Maximal Assistance 6=Modified [place] 3=Moderate Assistance 7=Complete [place] ADL-Treatment Functional [place] Measure 0=Not Assessed/NA 4=Minimal Assistance 1=Total Assistance 5=Supervision or Setup 2=Maximal Assistance 6=Modified [place] 3=Moderate Assistance 7=Complete IndependenceIRFPAI Quality Coding Scale 6 Independent with activity with or without an assistive device 5 Patient requires set up or clean up by helper. Patient completes activity by themselves 4 Supervision or touching assist (CGA). [place] provide cues , steadying assist 3 The helper provides less than half the effort to complete the activity 2 The helper provides more than half the effort to complete the activity 1 Dependent. The helper does all the effort to complete an activity 7 Patient refused to complete or attempt activity 9 The patient did not perform the activity before the current illness or injury 88 Not attempted due to Medical conditions or safety concerns Transfers (B, C, W/C) (FIM): 6 (Mod I with walker to ambulate to therapy gym.) Other Treatment Pt. ambulated to therapy gym. Completed armbike x 10 minutes, with rest break every 2 minutes. Tolerated this well. Completed at minimal resistance for overall increased endurance. Pt. then tolerated therapy task with resistive clothespins, alternating arms for increased fine motor strength. Ambulated back to room after therapy task with walker and transferred to bed with Mod I. All needs met in room. Education OT Patient Education: Correct positioning, Exercise program, Modified ADL techniques, Progress toward Goal/Update tx plan, Purpose of tx/functional activities, Reviewed precautions, Rehab process, Transfer techniques Teaching Recipient: Patient Teaching Methods: Demonstration, Discussion Response to Teaching: Verbalize Understanding, Return Demonstration OT Short Term Goals Short Term Goals Time Frame: Sep 11, 2018 Upper Body Dressing(FIM): 5 Lower Body Dressing(FIM): 5 Toileting(FIM): 5 Transfers (B,C,W/C) (FIM): 4 (met) Toilet/Commode Transfer(FIM): 5 Additional Short Term Goals: 1-Demonstrate ADL Tasks, 2-Verbalize Understanding , 3-ImproveStrength/Deb 1=Demonstrate adherence to instructed precautions during ADL tasks. 2=Patient will verbalize/demonstrate understanding of assistive devices/ modifications for ADL. 3=Patient will improve strength/tolerance for activity to enable patient to perform ADL's. OT Shelter Goals Partner Integration Planner Goals Time Frame: Sep 25, 2018 Eating (FIM): 6 Eating (QC): 6 Groomin Oral Hygiene (QC): 6 Bathing(FIM): 6 Shower/Bathe Self (QC): 6 Upper Body Dressing(FIM): 6 Upper Body Dressing (QC): 6 Lower Body Dressing(FIM): 6 Lower Body Dressing (QC): 6 On/Off Footwear (QC): 6 Toileting(FIM): 6 Toileting Hygiene (QC): 6 Toilet/Commode Transfer(FIM): 6 Toilet/Commode Transfer (QC): 6 Tub Transfer(FIM): 6 Shower Transfer(FIM): 6 Additional Goals: 1-Demonstrate ADL Tasks, 2-Verbalize Understanding, 3- ImproveStrength/Deb 1=Demonstrate adherence to instructed precautions during ADL tasks. 2=Patient will verbalize/demonstrate understanding of assistive devices/ modifications for ADL. 3=Patient will improve strength/tolerance for activity to enable patient to perform ADL's. OT Education/Plan Problem List/Assessment Assessment: Decreased Activ Tolerance Pt would benefit from skilled oT to increase his independence in basic self care to allow him to safely return to his home after cardiac surgery Discharge Recommendations Plan/Recommendations: Continue POC Therapy D/C Recommendations: Home w/ Family Support Equpiment Recommendations-D/C: Sock Aide Treatment Plan/Plan of Care Treatment,Training & Education: Yes Patient would benefit from OT for education, treatment and training to promote independence in ADL's, mobility, safety and/or upper extremity function for ADL' s. Plan of Care: ADL Retraining, Functional Mobility, Group Exercise/Act as Ind ( education, exercise, activity tolerance, functional activities, socialization), UE Funct Exercise/Act, UE Neuromus Re-Ed/Coord, OTHER (energy conservation educaiton) Treatment Duration: Sep 25, 2018 Frequency: At least 5 of 7 days/Wk (IRF) Estimated Hrs Per Day: 1.5 hours per day Agreement: Yes Rehab Potential: Good Time/GCodes Start Time: 13:00 Stop Time: 13:30 Total Time Billed (hr/min): 30 Billed Treatment Time 1, Ex x 30minutes SYLVIA ELLIS OT Sep 10, 2018 14:15
[2018-09-10 15:46] VITALS: BP 137/63
--- NOTE | 2018-09-10 16:01 | Physical Therapy Daily Note ---
PT Daily Note-Current Subjective Pt sitting up in bed upon arrival. Pt agrees to PT. Pain Numeric Pain Scale: 3 Location: Incisional Location Body Site: Chest Pain Description: Ache Mental Status Patient Orientation: Person, Place, Time, Situation Attachments: Other-See Comments (Heart Pillow as needed) Transfers Functional [place] Measure 0=Not Assessed/NA 4=Minimal Assistance 1=Total Assistance 5=Supervision or Setup 2=Maximal Assistance 6=Modified [place] 3=Moderate Assistance 7=Complete IndependenceIRFPAI Quality Coding Scale 6 Independent with activity with or without an assistive device 5 Patient requires set up or clean up by helper. Patient completes activity by themselves 4 Supervision or touching assist (CGA). [place] provide cues , steadying assist 3 The helper provides less than half the effort to complete the activity 2 The helper provides more than half the effort to complete the activity 1 Dependent. The helper does all the effort to complete an activity 7 Patient refused to complete or attempt activity 9 The patient did not perform the activity before the current illness or injury 88 Not attempted due to Medical conditions or safety concerns Scootin Supine to/from Sit: 6 Sit to/from Stand: 6 Sit to Lying (QC): 6 Sit to Stand (QC): 6 Weight Bearing Right Lower Extremity: Right Full Weight Bearing Left Lower Extremity: Left Full Weight Bearing Gait Training Does the Patient Walk?: Yes Distance (FIM): 3=150 ft Distance: 200' Walk 10 feet (QC): 6 Walk 50 ft with 2 Turns(QC): 6 Walk 150 ft (QC): 6 Gait Level of Assist: 6 Gait Persons Needed: 1 Gait Assistive Device: Walker 4 Wheeled SALT MAKER gives VC for safety precautions with 4WW (locking brakes, etc). Wheelchair Training Does the Pt Use a Wheelchair?: No Stair Training Stair Training: Handrails/: 1 handrail Stairs (FIM): 5 #of Steps: 8 1 Step (curb) (QC): 6 4 Steps (QC): 6 12 Steps (QC): 88 Stairs: Pattern: Reciprocal Level of Assist: 6 Pt fatigues by end of 2nd set of stairs so discontinued after 8 steps. Exercises NuStep Minutes: 10 NuStep Workload: 5 Treatments Pt completes ambulation in hallway, 2 sets of 4 steps & NuStep for 10m at WL 5 w /o UE before returning to room to rest. Pt has all needs met. Assessment Current Status: Good Progress Pt is motivated and excited to be going home. Nursing asks if pt can be Ad brenden in room since discharge tomorrow. PT Short Term Goals Short Term Goals Time Frame: Sep 11, 2018 Transfers (B,C,W/C) (FIM): 4 (met) Gait (FIM): 4 (met) Gait Distance Comment: 150' Gait Level of Assist: 4 Gait Assistive Device: FWW PT Retirement Goals Retirement Goals PT Dairy Farmworker Goals Time Frame: Sep 25, 2018 Transfers (B,C,W/C) (FIM): 5 Sit to Lying (QC): 4 Lying-Sitting on Side/Bed(QC): 4 (met) Sit to Stand (QC): 4 (met) Rollin Roll Left to Right (QC): 4 (met) Chair/Ego-py-Cisgi Xfer(QC): 4 (met) Car Transfer (QC): 4 (met) Gait (FIM): 5 Distance: 200' Walk 10 feet (QC): 4 (met) Walk 10ft-Uneven Surface(QC): 4 (met) Walk 50ft with 2 Turns (QC): 4 (met) Walk 150 ft (QC): 4 (met) Gait Level of Assist: 5 (met) Gait Assistive Device: FWW Stairs (FIM): 2 (met) # of Steps: 4 (met) 1 Step (curb) (QC): 4 (met) 4 Steps (QC): 4 (met) Stairs Level Of Assist: 4 (met) PT Plan Problem List Problem List: Activity Tolerance Treatment/Plan Treatment Plan: Continue Plan of Care Treatment Plan: Bed Mobility, Concurrent Therapy, Education, Functional Activity Deb, Functional Strength, Group Therapy, Gait, Safety, Therapeutic Exercise, Transfers Treatment Duration: Sep 25, 2018 Frequency: At least 5 of 7 days/Wk (IRF) Estimated Hrs Per Day: 1.5 hours per day Patient and/or Family Agrees t: Yes Safety Risks/Education Patient Education: Gait Training, Transfer Techniques, Steps, Correct Positioning, Safety Issues Teaching Recipient: Patient Teaching Methods: Discussion Response to Teaching: Verbalize Understanding Time/GCodes Time In: 1345 Time Out: 1430 Total Billed Treatment Time: 45 Total Billed Treatment 1, GT (15m), FA (15m) & EX (15m) G Codes Necessary: SEKOU Bruno PTA Sep 10, 2018 16:01
[2018-09-10] MEDS ORDERED: ASPI-983 PO (20:11)
[2018-09-10] MEDS ORDERED: AMIO200T4 PO (20:11)
[2018-09-10] MEDS ORDERED: CLOP75TA28 PO (20:11)
[2018-09-10] MEDS ORDERED: METO-387 PO (20:11)
[2018-09-10] MEDS ORDERED: TRAM50TA2 PO (20:11)
[2018-09-10] MEDS ORDERED: LISI10TA2 PO (20:11)
[2018-09-10] MEDS ORDERED: ATOR40TA PO (20:11)
[2018-09-10] MEDS: ATORVASTATIN 40 MG (LIPITOR) TABLET PO SCH (20:37)
[2018-09-10] MEDS: diphenhydrAMINE 25 MG TAB (BENADRYL) PO PRN (23:12)
[2018-09-11 06:04] VITALS: BP 130/63
[2018-09-11] MEDS: FOLIC ACID 1 MG TAB PO SCH (06:35)
--- NOTE | 2018-09-11 08:13 | PM & R (SOAP) Progress Note ---
Subjective This was a face to face visit with the patient. Date Seen by Provider: Sep 11, 2018 Time Seen by Provider: 07:45 Subjective/Events-last exam Patient was seen in his room this AM discharge meds reviewed and labs Has progressed well.RX ofr tramadol and other meds provided Date Identified: Sep 11, 2018 Time Identified: 07:45 Medication Intervention: Discharge meds and RXs reviewed and provided as needed Objective Physician Exam Last Set of Vital Signs Vital Signs Date Time Temp Pulse Resp B/P (MAP) Pulse Ox O2 Delivery O2 Flow Rate FiO2 09/11/18 06:04 97.1 81 18 130/63 (85) 97 Room Air Capillary Refill : I&O Intake and Output 09/11/18 00:00 Intake Total 1525 ml Output Total 650 ml Balance 875 ml Intake Oral 1525 ml Output Urine Total 650 ml # Voids 7 General: Alert, Oriented X3, Cooperative, No Acute Distress HEENT: Atraumatic, PERRLA, EOMI, Mucous Memb Moist/[place] Neck: Supple, No JVD Lungs: Clear to Auscultation Heart: Regular Rate Abdomen: Normal Bowel Sounds, Soft, No Tenderness Extremities: No Edema Skin: Other (Sternotomy site healing well Plus psoriatic rash) Neuro: Other ( Strength BU limbs 4/5 Hip flex 4/5 distal 5/5) Assessment/Plan Assessment and Plan Home today with family and SO F/U with PCP and Card See orders Co-Morbidities that are continuing to impact the rehab process: (include details ) ИРИНА CHERRY MD Sep 11, 2018 08:13
[2018-09-11] MEDS: AMIODARONE 200 MG (CORDARONE) TAB PO SCH (08:50)
[2018-09-11] MEDS: LORATADINE (CLARITIN) 10 MG TAB PO SCH (08:50)
[2018-09-11] MEDS: ASPIRIN E.C. 81 MG (ECOTRIN) TAB PO SCH (08:51)
[2018-09-11] MEDS: CLOPIDOGREL 75 MG (PLAVIX) TABLET PO SCH (08:51)
[2018-09-11] MEDS: guaiFENesin (MUCINEX) 600 MG TAB PO SCH (08:51)
[2018-09-11] MEDS: NYSTATIN CREAM (MYCOSTATIN) 30 GM TUBE TP SCH (08:53)
[2018-09-11] MEDS: lisINopril 10 MG (PRINIVIL) TABLET PO SCH (08:53)
[2018-09-11] MEDS: BETAMETHASONE DIPRO (AUGMENTED) 0.05% CREAM 15 GM TOP SCH (08:54)
[2018-09-11] MEDS: GENTAMICIN 0.1% TOP SCH (08:54)
--- NOTE | 2018-09-11 12:04 | D/C HH Face to Face Order ---
D/C Face to Face Orders Instructions for Patient Via [facility], Patient Instructions/FollowUp: Dr. Deny Grey Physician to follow Patient: Dr. Deny Chilel Discharge Diet for Home: Cardiac Diet Patient Data-Allergies,Ht & Wt Patient Allergies: Coded Allergies: No Known Drug Allergies (Unverified , 04/09/13) Height (Feet): 6 Height (Inches): 0.00 Weight (Pounds): 261 Weight (Ounces): 8.0 Home Health Need/Face to Face Date of Face to Face: Sep 11, 2018 Clinical Findings: Generalized weakness and fatigue, Muscle weakness I have seen Pt [id number]-sw-[id number]: Yes Discharged To: Home Diagnosis/Conditions: Cabg Patient is Homebound due to: Muscle weakness Homebound Status Due to the above stated illness, injury or surgical procedure (medical condition or diagnosis) and associated clinical findings, the patient is homebound because of his/her inability to leave home except with aid of a supportive device and/or person AND leaving the home requires a considerable and taxing effort or is medically contraindicated. Pt req the following assistanc: Walker Home Health Nursing Orders Home Health Services Order: Nursing Services, Tree Farmer-Evaluate & Treat, Physical Therapy-Evaluate & Treat RN for med management and wound oversight Therapy Orders Therapy Orders: OT (must have SN or PT order), Physical Therapy Therapy Specific Orders: Eval assistive deivces, Teach enviro modifications/ safety, Gait training, Increase strength/endurance, Restore ROM Certify Stmt I certify that this patient is under my care and that I, a nurse practitioner or a physician; a automobile mechanic assistant working with me, had a face to face encounter that - meets the physician face to face encounter requirements with this patient as dated. I personally scribed for ИРИНА CHERRY MD ([facility]) on 09/11/18 at 12:04. Electronically submitted by Betty Hernandez ([id number]). ИРИНА CHERRY MD Sep 11, 2018 12:04
--- NOTE | 2018-09-11 13:20 | Cardiology Progress Note ---
Cardiology SOAP Progress Note Subjective: No cardiac complaints. Objective: I&O/Vital Signs 09/11/18 09/11/18 06:04 09:00 Temp 97.1 Pulse 81 Resp 18 B/P (MAP) 130/63 (85) Pulse Ox 97 O2 Delivery Room Air Room Air 09/11/18 00:00 Intake Total 900 ml Balance 900 ml Weight (Pounds): 261 Weight (Ounces): 8.0 Weight (Calculated Kilograms): 118.375969 Constitutional: appears stated age, AAO x 3; No apparent distress; well- developed, well-nourished Respiratory: No accessory muscle use, No respiratory distress, No chest tender , No chest expansion is symmetric; chest is bilaterally symmetric; No lungs clear to percussion; lungs clear to auscultation; No crackles, No rhonchi, No rales, No stridor, No wheezing, No pleural rub, No other Cardiovascular: regular rate-rhythm, S1 and S2 Gastrointestional: No tender, No soft, No round, No distended, No pulsatile mass, No organomegaly, No guarding, No rebound, No tenderness, No hernia, No mass, No audible bowel sounds, No abnormal bowel sounds, No abdominal bruits, No spleenomegaly, No other Extremities: No normal range of motion, No non-tender, No normal inspection, No pedal edema, No calf tenderness, No normal capillary refill, No pelvis stable , No calf tenderness, No inflammation, No pedal edema, No slow capillary refill , No swelling, No other, No abrasion, No clubbing, No cyanosis, No ecchymosis, No laceration, No no lower extremity edema bilateral, No significant edema, No tenderness, No wound Neurologic/Psychiatric: no motor/sensory deficits, alert, normal mood/affect, oriented x 3, power is 5/5 both on sides Skin: No rash, No ulcerations A/P: Assessment/Dx: CAD, recent CABG. Paroxysmal atrial fibrillation, Hypertension, Hyperlipidemia, Inflammatory arthritis on Humira Plan: Continue aspirin, Plavix, beta lj, RAINE inhibitor, statin for CAD. Continue amiodarone for now for paroxysmal atrial fibrillation. Likely post surgery. We'll give it for a month. And if no further atrial fibrillation we' ll discontinue it. I will likely perform an event monitor as an outpatient. Intensive spirometry was recommended. likely discharge tomorrow. Will follow up in office in two to three weeks. Thank you for your consultation. Please call me if you have any questions. Susan Muñiz MD, FACP, FACC, FSCAI, FHRS, CCDS Interventional Cardiology Cardiac Electrophysiology Vascular Medicine and Endovascular Interventions Jessica MUÑIZ MD Sep 11, 2018 1:20 pm
[2018-09-11 15:35] VITALS: BP 130/63
--- NOTE | 2018-09-11 16:03 | Therapy Team Discharge Summary ---
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 Upon evaluation patient performed bed mobility with max assist, sit to stand with CGA, transfers with CGA, car transfer with CGA, ambulated 100' with CGA using a rolling walker (including 50 ' with at least 2 turns of 90 degrees and 10' over an uneven surface), and went up and down 1 step using a rolling walker with CGA. Patient has been performing bed mobility and transfer training, balance and endurance training, functional strengthening, stair training, gait training, and education. Patient has made good progress and has met all of his supervisor intermediates goals. Now, patient performs bed mobility and transfers with mod I, car transfer with mod I , ambulates 200' with a rolling walker with mod I (including 50' with at least 2 turns of 90 degrees and 10' over an uneven surface), and can go up and down 8 steps using 1 handrail with SBA. Patient has been discharged from this facility today and will be discharged from PT at this time. Occupational Therapy Decreased Activ Tolerance PT Intermediate Goals Baseball Sewer Hand Goals PT Baseball Sewer Hand Goals Time Frame: Sep 25, 2018 Transfers (B,C,W/C) (FIM): 5 Roll Left to Right (QC): 4 (met) Sit to Lying (QC): 4 Lying-Sitting on Side/Bed(QC): 4 (met) Sit to Stand (QC): 4 (met) Chair/Cqc-yu-Uwqoi Xfer(QC): 4 (met) Car Transfer (QC): 4 (met) Gait (FIM): 5 Distance: 200' Walk 10 feet (QC): 4 (met) Walk 10ft-Uneven Surface(QC): 4 (met) Walk 50ft with 2 Turns (QC): 4 (met) Walk 150 ft (QC): 4 (met) Gait Level of Assist: 5 (met) Gait Assistive Device: FWW Stairs (FIM): 2 (met) # of Steps: 4 (met) 1 Step (curb) (QC): 4 (met) 4 Steps (QC): 4 (met) Stairs Level Of Assist: 4 (met) OT Baseball Sewer Hand Goals Intermediate Goals Time Frame: Sep 25, 2018 Eating (FIM): 6 Eating (QC): 6 Oral Hygiene (QC): 6 Grooming(FIM): 6 Bathing(FIM): 6 Shower/Bathe Self (QC): 6 Upper Body Dressing(FIM): 6 Upper Body Dressing (QC): 6 Lower Body Dressing(FIM): 6 Lower Body Dressing (QC): 6 On/Off Footwear (QC): 6 Toileting(FIM): 6 Toileting Hygiene (QC): 6 Toilet/Commode Transfer(FIM): 6 Toilet/Commode Transfer (QC): 6 Tub Transfer(FIM): 6 Shower Transfer(FIM): 6 Additional Goals: 1-Demonstrate ADL Tasks, 2-Verbalize Understanding, 3- ImproveStrength/Deb 1=Demonstrate adherence to instructed precautions during ADL tasks. 2=Patient will verbalize/demonstrate understanding of assistive devices/ modifications for ADL. 3=Patient will improve strength/tolerance for activity to enable patient to perform ADL's. Speech Baseball Sewer Hand Goals Baseball Sewer Hand Goals no LTGs established as skilled ST not indicated SHARON GONZALEZ PT Sep 11, 2018 16:03
--- NOTE | 2018-09-12 13:27 | Therapy Team Discharge Summary ---
Therapy Discharge Summary Discharge Recommendations Date of Discharge Sep 11, 2018 at 15:00 Therapy D/C Recommendations: Home w/ Family Support Occupational Therapy Pt. has been seen by occupational therapy to increase overall strength and independence. Tolerated treatment well. Pt. has met most goals but still strives for full Mod I with LE dressing and bathing. Pt. discharging home with family assistance. Working toward increased activity tolerance. Pt. doing well overall. Decreased Activ Tolerance PT Nursing Home Goals Meteorology Faculty Member Goals PT Meteorology Faculty Member Goals Time Frame: Sep 25, 2018 Transfers (B,C,W/C) (FIM): 5 Roll Left to Right (QC): 4 (met) Sit to Lying (QC): 4 Lying-Sitting on Side/Bed(QC): 4 (met) Sit to Stand (QC): 4 (met) Chair/Ojz-pc-Cpttm Xfer(QC): 4 (met) Car Transfer (QC): 4 (met) Gait (FIM): 5 Distance: 200' Walk 10 feet (QC): 4 (met) Walk 10ft-Uneven Surface(QC): 4 (met) Walk 50ft with 2 Turns (QC): 4 (met) Walk 150 ft (QC): 4 (met) Gait Level of Assist: 5 (met) Gait Assistive Device: FWW Stairs (FIM): 2 (met) # of Steps: 4 (met) 1 Step (curb) (QC): 4 (met) 4 Steps (QC): 4 (met) Stairs Level Of Assist: 4 (met) OT Nursing Home Goals Nursing Home Goals Time Frame: Sep 25, 2018 Eating (FIM): 6 (met) Eating (QC): 6 (met) Oral Hygiene (QC): 6 (met) Grooming(FIM): 6 (met) Bathing(FIM): 6 (not met) Shower/Bathe Self (QC): 6 (not met) Upper Body Dressing(FIM): 6 (met) Upper Body Dressing (QC): 6 (met) Lower Body Dressing(FIM): 6 (not met) Lower Body Dressing (QC): 6 (not met) On/Off Footwear (QC): 6 (not met) Toileting(FIM): 6 (met) Toileting Hygiene (QC): 6 (met) Toilet/Commode Transfer(FIM): 6 (met) Toilet/Commode Transfer (QC): 6 (met) Tub Transfer(FIM): 6 (not met) Shower Transfer(FIM): 6 (not met) Additional Goals: 1-Demonstrate ADL Tasks, 2-Verbalize Understanding, 3- ImproveStrength/Deb 1=Demonstrate adherence to instructed precautions during ADL tasks. 2=Patient will verbalize/demonstrate understanding of assistive devices/ modifications for ADL. 3=Patient will improve strength/tolerance for activity to enable patient to perform ADL's. Speech Nursing Home Goals Nursing Home Goals no LTGs established as skilled ST not indicated SYLVIA ELLIS OT Sep 12, 2018 13:27
== END 2018-09-11 15:00 | disposition home health service (06) | DRG 950 ==
PROVIDERS: ADMIT Physical Medicine & Rehabilitation; ATTEND Physical Medicine & Rehabilitation
DX: Z48.812 Encounter for surgical aftercare following surgery on the circulatory system (principal); Z95.1 Presence of aortocoronary bypass graft; I25.119 Atherosclerotic heart disease of native coronary artery with unspecified angina pectoris; I48.0 Paroxysmal atrial fibrillation; K59.09 Other constipation; G47.00 Insomnia, unspecified; L21.9 Seborrheic dermatitis, unspecified; I10 Essential (primary) hypertension; M19.041 Primary osteoarthritis, right hand; M19.042 Primary osteoarthritis, left hand; L40.50 Arthropathic psoriasis, unspecified; E78.5 Hyperlipidemia, unspecified; K64.9 Unspecified hemorrhoids; D64.9 Anemia, unspecified; E83.51 Hypocalcemia; J30.2 Other seasonal allergic rhinitis; R05 Cough; E66.9 Obesity, unspecified; Z68.35 Body mass index [BMI] 35.0-35.9, adult; R53.81 Other malaise; H57.89 Other specified disorders of eye and adnexa; M54.6 Pain in thoracic spine; M54.2 Cervicalgia; Z87.891 Personal history of nicotine dependence; Z79.02 Long term (current) use of antithrombotics/antiplatelets; Z90.49 Acquired absence of other specified parts of digestive tract
CPT/HCPCS: 36415; 80048; 85025

== ENCOUNTER → 2018-12-04 | Outpatient (CLI) | payer MEDICARE, OTHER ==
[~2018-12-04] MED LIST changes: +ADAL40PE5 SQ; +AMIO200T4 PO; +ASPI-983 PO; +ATOR40TA PO; +BETA15CR4 TP; +CLOP75TA28 PO; +FEXO-45 PO; +GENT15CR6 TP; +LISI10TA2 PO; +METO-387 PO; +TRAM50TA2 PO
--- NOTE | 2018-12-04 11:19 | Diagnostic Imaging Report ---
INDICATION: Right-sided chest pain, history of cardiac surgery. PA and lateral chest obtained at 11:31 a.m. and compared to 07/03/2018. FINDINGS: There is poststernotomy change with normal heart size. There is no focal infiltrate or pneumothorax or pleural fluid. There are diffuse degenerative changes in the thoracic spine. IMPRESSION: Postoperative changes. No acute process in the chest. Dictated by: Dictated on workstation # [id number]
== END ==
LOC: RAD 10:54
PROVIDERS: ATTEND Family Medicine
DX: R07.89 Other chest pain (principal); R07.81 Pleurodynia; Z98.890 Other specified postprocedural states
CPT/HCPCS: 71046

== ENCOUNTER 2019-01-15 10:42 | Outpatient (RCR) | payer MEDICARE, MEDICAID | END 2019-01-19 | disposition home or self-care (01) | LOC: CR 10:42 | PROVIDERS: ATTEND Thoracic Surgery (Cardiothoracic Vascular Surgery) | DX: Z48.812 Encounter for surgical aftercare following surgery on the circulatory system (principal); Z95.1 Presence of aortocoronary bypass graft | CPT/HCPCS: 93798 ==

== ENCOUNTER 2019-01-20 09:07 | Outpatient (RCR) | payer MEDICARE, MEDICAID | END 2019-02-13 | disposition home or self-care (01) | LOC: CARD 09:07 | PROVIDERS: ATTEND Internal Medicine Interventional Cardiology | DX: I48.0 Paroxysmal atrial fibrillation (principal) | CPT/HCPCS: 93270; 93798 ==

== ENCOUNTER 2019-01-31 11:43 | Outpatient (RCR) | payer MEDICARE, MEDICAID | END 2019-05-01 | disposition home or self-care (01) | LOC: CARD 11:43 | PROVIDERS: ATTEND Internal Medicine Interventional Cardiology | DX: I48.0 Paroxysmal atrial fibrillation (principal); R42 Dizziness and giddiness; R06.02 Shortness of breath ==

== ENCOUNTER 2019-02-28 09:08 | Outpatient (RCR) | payer MEDICARE, MEDICAID | END 2019-04-22 | disposition home or self-care (01) | LOC: CR 09:08 | PROVIDERS: ATTEND Thoracic Surgery (Cardiothoracic Vascular Surgery) | DX: Z48.812 Encounter for surgical aftercare following surgery on the circulatory system (principal); Z95.1 Presence of aortocoronary bypass graft | CPT/HCPCS: 93798 ==

== ENCOUNTER → 2019-03-13 | Day surgery (SDC) | payer MEDICARE, MEDICAID ==
[~2019-03-13] VITALS: Ht 182.9 cm; Wt 116.6 kg
[~2019-03-13] MED LIST changes: +LIDOCAINE 1% INJ 20 ML 20 ML VIAL ONE
--- OUTSIDE RECORDS SUMMARY | 2019-03-13 10:26 | XMS REPORT | Continuity of Care Document ---
Author Author [facility] Organization [facility] Address Unknown Phone Unavailable Care Team Providers Care Import/Export Administrator Name Role Phone AYDIN HUSAIN PP Insurance Providers Payer Name Policy Number Subscriber Name Relationship s Medicare [id number] Helder Chi 01 Self / Same As Patient Advance Directives Directive Response Recorded Date Advance Directives N 04/09/13 5:45pm Health Care Power of Coder N 04/09/13 5:45pm Organ Donor N 04/09/13 5:45pm Problems No Known Problems or Medical conditions. Family History History Response Recorded Date/Time Hx Family Cancer N 04/09/13 5:45pm Hx Family Cardiac Disorders N 04/09/13 5: 45pm Social History History Response Recorded Date/Time Alcohol [...] 10:00pm NONE / HPF - Urine Specific [place] April 09, 2013 10:00pm 1.020 - Urine [...] 2013 5:30pm 114 MG/ DL H 70-110 Lab Scanned Report April 21, 2013 1:14pm Transfusion Reaction Form [id number] - Estimat Glomerular Filtration Rate April 09, 2013 11:49am 60 - Urine RBC (Auto) April 09, 2013 10:00pm TRACE H - Procedures Procedure Code Date OPEN AND OTHER SIGMOIDECTOMY 45.76 TEMPORARY COLOSTOMY 46.11 04/11/13 VENOUS CATHETERIZATION NEC 38.93 MRSA Screen 04/11/13 Encounters Encounter Location Date/Time Discharged Inpatient [facility] 2:10pm
--- OUTSIDE RECORDS SUMMARY | 2019-03-13 10:26 | XMS REPORT | Continuity of Care Document ---
Author Author [facility] Organization [facility] Address Unknown Phone Unavailable Care Team Providers Care Experimental Box Tester Name Role Phone QUIANA DUVAL DO PP Insurance Providers Payer Name Policy Number Subscriber Name Relationship [facility] [id number] Helder Chi Self / Same As Patient Wps Medicare [id number] Helder Chi Self / Same As Patient Advance Directives Directive Response Recorded Date Advance Directives N 07/14/13 8:55am Health Care Power of Brine Room Laborer N 07/14/13 8:55am Organ Donor N 07/14/13 8:55am Problems No Known Problems or Medical conditions. Family History History Response Recorded Date/Time Hx Family Cancer N 07/09/13 10:44am Hx Family Cardiac Disorders N 07/09/13 10 :44am Social History History Response Recorded Date/Time Alcohol Use Denies Use 07/09/13 10:44am Recreational Drug Use N 07/09/13 10:44am Recent Foreign Travel N 07/09/13 10:44am Hospitalization with Isolation Denies 10:44am Allergies, Adverse Reactions, Alerts Allergen Type Severity Reaction Last Updated No Known Drug Allergies 04/09/13 Medications Medication Dose Units Route Sig Qty Days Simvastatin 20 Mg PO HS Acetaminophen/Hydrocodone Bitart (Lortab 5-500 Tablet) 1 - 2 Each PO Q 4 - 6 HR PRN Minocycline Hcl 50 Mg PO HS Immunizations [...] 2013 5:50am 20 - Basophils # (Auto) July 09, 2013 10:50am 0.1 10^3/uL N 0.0-0.1 Basophils (%) (Auto) July 09, 2013 10:50am 1 % N 0-10 Blood Urea Nitrogen April 17, 2013 5:50am 16 MG/DL N 7-18 Calcium Level April 17, 2013 5:50am 7.8 MG /DL L 8.5-10.1 Carbon Dioxide Level April 17, 2013 5:50am 24 MMOL/L N 21-32 Chloride Level April 17, 2013 5:50am 104 MMOL/L N 101-110 Creatinine April 17, 2013 5:50am 0.8 MG/ DL N 0.6-1.3 Eosinophils # (Auto) July 09, 2013 10:50am 0.2 10^3/uL N 0.0-0.3 Eosinophils (%) (Auto) July 09, 2013 10:50am 3 % N 0-10 Glucose Level April 17, 2013 5:50am 127 MG /DL H 74-106 Hematocrit July 09, 2013 10:50am 38 % L 40-54 Hemoglobin July 09, 2013 10:50am 13.4 G/DL N 13.3-17.7 Lymphocytes # (Auto) July 09, 2013 10:50am 1.3 X 10^3 N 1.0-4.0 Lymphocytes (%) (Auto) July 09, 2013 10:50am 22 % N 12-44 Magnesium Level April 16, 2013 5:45am 2.0 MG/DL N 1.8-2.4 Mean Corpuscular Hemoglobin July 09, 2013 10:50am 30 PG N 25-34 Mean Corpuscular Hemoglobin Concent July 09, 2013 10:50am 35 G/DL N 32-36 Mean Corpuscular Volume July 09, 2013 10:50am 86 FL N 80-99 Mean Platelet Volume July 09, 2013 10:50am 10.1 FL N 7.4-10.4 Monocytes # (Auto) July 09, 2013 10:50am 0.6 X 10^3 N 0.0-1.0 Monocytes (%) (Auto) July 09, 2013 10:50am 10 % N 0-12 Neutrophils # (Auto) July 09, 2013 10:50am 3.7 X 10^3 N 1.8-7.8 Neutrophils (%) (Auto) July 09, 2013 10:50am 64 % N 42-75 Phosphorus Level April 16, 2013 5:45am 3.1 MG/DL N 2.5-4.9 Platelet Count July 09, 2013 10:50am 171 10^3/uL N 130-400 Potassium Level April 17, 2013 5:50am 3.7 MMOL/L N 3.6-5.0 Prealbumin April 16, 2013 5:45am 13.9 MG/ DL L 18.0-35.7 Red Blood Count July 09, 2013 10:50am 4.47 10^6/uL N 4.35-5.85 Red Cell Distribution Width July 09, 2013 10:50am 14.2 % N 10.0-14.5 Sodium Level April 17, 2013 5:50am [...] 10:00pm NONE / HPF - Urine Specific [place] April 09, 2013 10:00pm 1.020 - Urine Squamous Epithelial Cells April 09, 2013 10:00pm 0-2 /HPF - Urine Urobilinogen April 09, 2013 10:00pm NORMAL MG/DL - Urine WBC April 09, 2013 10:00pm RARE / HPF - Urine pH April 09, 2013 10:00pm 5 - White Blood Count July 09, 2013 10:50am 5.7 10^3/uL N 4.3-11.0 Glucometer April 17, 2013 5:30pm 114 MG/ DL H 70-110 Lab Scanned Report April 21, 2013 1:14pm Transfusion Reaction Form [id number] - Estimat Glomerular Filtration Rate April 09, 2013 11:49am 60 - Urine RBC (Auto) April 09, 2013 10:00pm TRACE H - Procedures Procedure Code Date OPEN AND OTHER SIGMOIDECTOMY 45.76 TEMPORARY COLOSTOMY 46.11 04/11/13 VENOUS CATHETERIZATION NEC 38.93 MRSA Screen 07/09/13 Encounters Encounter Location Date/Time Discharged Inpatient [facility] 2:10pm
--- OUTSIDE RECORDS SUMMARY | 2019-03-13 10:27 | XMS REPORT | Continuity of Care Document ---
Author Author [facility] Organization [facility] Address Unknown Phone Unavailable Care Team Providers Care Industrial Equipment Mechanic Name Role Phone QUIANA DUVAL DO PP Insurance Providers Payer Name Policy Number Subscriber Name [id number] ArtiMiguelJhony Tu Self / Same As Patient Wps Medicare [id number] Miguel Chinis Tu Self / Same As Patient Advance Directives Directive Response Recorded Date Advance Directives N 07/24/13 10:31am Health Care Power of Supervisor Finishing Room N 07/24/13 10:31am Organ Donor N 07/24/13 10:31am Problems No Known Problems or Medical conditions. Family History History Response Recorded Date/Time Hx Family Cancer N 07/16/13 4:42pm Hx Family Cardiac Disorders N 07/16/13 4: 42pm Social History History Response Recorded Date/Time Alcohol Use Denies Use 07/24/13 10:31am Recreational Drug Use N 07/24/13 10:31am Recent Foreign Travel N 07/24/13 10:31am Hospitalization with Isolation Denies 03/31 10:31am Allergies, Adverse Reactions, Alerts Allergen Type Severity Reaction Last Updated No Known Drug Allergies 04/09/13 Medications Medication Dose Units Route Sig Qty Days Metronidazole (Flagyl 500 Mg) 1 Each PO BID 7 Ciprofloxacin (Cipro) 1 Tab PO BID 10 Acetaminophen/Hydrocodone Bitart (Lortab 5 Mg) 1 - 2 Ea PO Q4HR PRN 20 Simvastatin 20 Mg PO HS Acetaminophen/Hydrocodone Bitart (Lortab 5-500 Tablet) 1 - 2 Each PO Q 4 - 6 HR PRN Minocycline Hcl 50 Mg PO HS Immunizations Name Given Type Date of Pneumonia Vaccine 09/19/12 H Response Recorded Date/Time Status not known Unknown Results No Known Relevant Diagnostic Tests, Laboratory Data and/or Discharge Summary. Procedures Procedure Code Date OPEN AND OTHER SIGMOIDECTOMY 45.76 TEMPORARY COLOSTOMY 46.11 04/11/13 VENOUS CATHETERIZATION NEC 38.93 COLONOSCOPY [id number] 07/14/13 PART SM BOWEL RESECT NEC 45.62 07/16/13 LG BOWEL STOMA CLOSURE 46.52 07/16/13 SM-TO-SM BOWEL ANASTOM 45.91 07/16/13 Encounters Encounter Location Date/Time Departed Emergency Room [facility] 03/31 10:27am Discharged Inpatient [facility] 8:05am
--- OUTSIDE RECORDS SUMMARY | 2019-03-13 10:27 | XMS REPORT | Continuity of Care Document ---
Author Author [facility] Organization [facility] Address Unknown Phone Unavailable Care Team Providers Care Commanding Officer Homicide Squad Name Role Phone QUIANA DUVAL DO PP Insurance Providers Payer Name Policy Number Subscriber Name Relationship [facility] [id number] Helder Chi Self / Same As Patient Wps Medicare [id number] Helder Chi Self / Same As Patient Advance Directives Directive Response Recorded Date Advance Directives N 07/16/13 4:40pm Health Care Power of Infant Teacher N 07/16/13 4:40pm Organ Donor N 07/16/13 4:40pm Problems No Known Problems or Medical conditions. Family History History Response Recorded Date/Time Hx Family Cancer N 07/16/13 4:42pm Hx Family Cardiac Disorders N 07/16/13 4: 42pm Social History History Response Recorded Date/Time Alcohol Use Denies Use 07/16/13 4:41pm Recreational Drug Use N 07/16/13 4:41pm Recent Foreign Travel N 07/16/13 4:41pm Hospitalization with Isolation Denies 12/01 1:42pm Allergies, Adverse Reactions, Alerts Allergen Type Severity Reaction Last Updated No Known Drug Allergies 04/09/13 Medications Medication Dose Units Route Sig Qty Days Acetaminophen/Hydrocodone Bitart (Lortab 5 Mg) 1 - [...] 10:00pm NONE / HPF - Urine Specific [place] April 09, 2013 10:00pm 1.020 - Urine [...] April 21, 2013 1:14pm Transfusion Reaction Form [id number] - Estimat Glomerular Filtration Rate April 09, 2013 11:49am 60 - Urine RBC (Auto) April 09, 2013 10:00pm TRACE H - Procedures Procedure Code Date OPEN AND OTHER SIGMOIDECTOMY 45.76 TEMPORARY COLOSTOMY 46.11 04/11/13 VENOUS CATHETERIZATION NEC 38.93 COLONOSCOPY [id number] 07/14/13 LG BOWEL STOMA CLOSURE 46.52 PART SM BOWEL RESECT NEC 45.62 SM-TO-SM BOWEL ANASTOM 45.91 MRSA Screen 07/09/13 Encounters Encounter Location Date/Time Discharged Inpatient [facility] 8:05am
--- OUTSIDE RECORDS SUMMARY | 2019-03-13 10:27 | XMS REPORT | Continuity of Care Document ---
Author Organization Unknown Address Unknown Allergies Active Description Code Type Severity Reaction Onset Reported/Identified Relationship to Patient Clinical Status Yes No Known Drug Allergies [id number] Drug Allergy Unknown N/A 04/09/2013 Medications There is no data. Problems Date Dx Coded Attending Type Code Diagnosis Diagnosed By 04/18/2013 QUIANA DUVAL DO Ot 285.9 ANEMIA NOS 04/18/2013 QUIANA DUVAL DO Ot 560.89 INTESTINAL OBSTRUCT NEC 04/18/2013 QUIANA DUVAL DO Ot 562.10 DIVERTICULOSIS COLON (W/O MENT OF HEMORR 04/18/2013 QUIANA DUVAL DO Ot 569.60 COLOST ENTEROSTOMY COMP, NOS 06/18/2013 SUSU SINGLETON MD Ot V44.3 COLOSTOMY STATUS 06/18/2013 SUSU SINGLETON MD Ot V58.31 ENCOUNTER FOR CHANGE OR REMOVAL OF SURGI 07/14/2013 SUSU SINGLETON MD Ot 562.11 DIVERTICULITIS COLON (W/O MENT OF HEMORR 07/20/2013 SUSU SINGLETON MD Ot 272.0 PURE HYPERCHOLESTEROLEM 07/20/2013 SUSU SINGLETON MD Ot 272.4 HYPERLIPIDEMIA NEC/NOS 07/20/2013 SUSU SINGLETON MD Ot 459.2 COMPRESSION OF VEIN 07/20/2013 SUSU SINGLETON MD Ot 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-QKHM-UA/INF 07/20/2013 SUSU SINGLETON MD Ot V55.3 ATTEN TO COLOSTOMY 07/24/2013 WALTER BOB WAISTLINE JOINER LOCKSTITCH Ot 789.30 ABDOMINAL/PELVIC SWELLING,MASS/LUMP UNSP 07/24/2013 WALTER BOB WAISTLINE JOINER LOCKSTITCH Ot V58.31 ENCOUNTER FOR CHANGE OR REMOVAL OF SURGI 07/20/2016 QUIANA DUVAL DO Ot 560.9 INTESTINAL OBSTRUCT NOS 07/20/2016 QUIANA DUVAL DO Ot 564.00 UNSPEC CONSTIPATION 07/20/2016 MUKUND WINTERS QUIANA Peter Ot 593.9 RENAL URETERAL DIS NOS 07/20/2016 GELLENDER DO, QUIANA Peter Ot 783.21 LOSS OF WEIGHT 07/20/2016 GELLENDER DO, QUIANA Peter Ot 787.03 VOMITING ALONE 07/20/2016 GELLENDER DO, QUIANA Peter Ot 789.00 ABDOMINAL PAIN, UNSPECIFIED SITE 08/19/2016 GELLENDER DO, QUIANA Peter Ot 560.9 INTESTINAL OBSTRUCT NOS 08/19/2016 GELLENDER DO, QUIANA Peter Ot 564.00 UNSPEC CONSTIPATION 08/19/2016 GELLENDER DO, QUIANA Peter Ot 593.9 RENAL URETERAL DIS NOS 08/19/2016 GELLENDER DO, QUIANA Peter Ot 783.21 LOSS OF WEIGHT 08/19/2016 GELLENDER DO, QUIANA Peter Ot 787.03 VOMITING ALONE 08/19/2016 GELLENDER DO, QUIANA Peter Ot 789.00 ABDOMINAL PAIN, UNSPECIFIED SITE 12/29/2016 GELLENDER DO, QUIANA Peter Ot 560.9 INTESTINAL OBSTRUCT NOS 12/29/2016 GELLENDER DO, QUIANA Peter Ot 564.00 UNSPEC CONSTIPATION 12/29/2016 GELLENDER DO, QUIANA Peter Ot 593.9 RENAL URETERAL DIS NOS 12/29/2016 GELLENDER DO, QUIANA Peter Ot 783.21 LOSS OF WEIGHT 12/29/2016 GELLENDER DO, QUIANA Peter Ot 787.03 VOMITING ALONE 12/29/2016 GELLENDER DO, QUIANA Peter Ot 789.00 ABDOMINAL PAIN, UNSPECIFIED SITE 12/29/2016 MANI TSAI, SUSU Lopez Ot 562.11 DIVERTICULITIS COLON (W/O MENT OF HEMORR 12/29/2016 MANI TSAI, SUSU Lopez Ot V72.63 PRE-PROCEDURAL LABORATORY EXAMINATION 12/29/2016 MANI TSAI, SUSU Lopez Ot V74.8 SCREEN-BACTERIAL DIS NEC 12/29/2016 MANI TSAI, SUSU Lopez Ot 276.8 HYPOPOTASSEMIA 01/01/2017 COLTHARP DO, JAMAR A Ot R05 COUGH 01/29/2017 COLTHARP DO, JAMAR A Ot R05 COUGH 02/17/2017 GELLENDER DO, QUIANA Peter Ot 560.9 INTESTINAL OBSTRUCT NOS 02/17/2017 GELLENDER DO, QUIANA Peter Ot 564.00 UNSPEC CONSTIPATION 02/17/2017 GELLENDER DO, QUIANA Peter Ot 593.9 RENAL URETERAL DIS NOS 02/17/2017 DANGELOLENDER DO, QUIANA Peter Ot 783.21 LOSS OF WEIGHT 02/17/2017 QUIANA DUVAL DO Ot 787.03 VOMITING ALONE 02/17/2017 MUKUND WINTERS, QUIANA Peter Ot 789.00 ABDOMINAL PAIN, UNSPECIFIED SITE 08/07/2018 Ot I20.8 OTHER FORMS OF ANGINA PECTORIS 08/19/2018 Jessica PINA MD Ot E66.9 OBESITY, UNSPECIFIED 08/19/2018 Jessica PINA MD Ot M19.90 UNSPECIFIED OSTEOARTHRITIS, UNSPECIFIED 08/19/2018 Jessica PINA MD Ot R06.02 SHORTNESS OF BREATH 08/19/2018 Jessica PINA MD Ot R07.9 CHEST PAIN, UNSPECIFIED 08/19/2018 Jessica PINA MD Ot R94.31 ABNORMAL ELECTROCARDIOGRAM [ECG] [EKG] 08/20/2018 QUIANA DUVAL DO Ot 560.9 INTESTINAL OBSTRUCT NOS 08/20/2018 MUKUND WINTERS, QUIANA Peter Ot 564.00 UNSPEC CONSTIPATION 08/20/2018 QUIANA DUVAL DO Ot 593.9 RENAL URETERAL DIS NOS 08/20/2018 QUIANA DUVAL DO Ot 783.21 LOSS OF WEIGHT 08/20/2018 QUIANA DUVAL DO Ot 787.03 VOMITING ALONE 08/20/2018 QUIANA DUVAL DO Ot 789.00 ABDOMINAL PAIN, UNSPECIFIED SITE 08/20/2018 MANI TSAI, SUSU Lopez Ot 562.11 DIVERTICULITIS COLON (W/O MENT OF HEMORR 08/20/2018 MANI TSAI, SUSU Lopez Ot V72.63 PRE-PROCEDURAL LABORATORY EXAMINATION 08/20/2018 MANI TSAI, SUSU Lopez Ot V74.8 SCREEN-BACTERIAL DIS NEC 08/20/2018 SUSU SINGLETON MD Ot 276.8 HYPOPOTASSEMIA 08/20/2018 COLTHARP JAMAR Ot R05 COUGH 08/20/2018 Ot I20.8 OTHER FORMS OF ANGINA PECTORIS 08/20/2018 Jessica PINA MD Ot E66.9 OBESITY, UNSPECIFIED 08/20/2018 Jessica PINA MD Ot M19.90 UNSPECIFIED OSTEOARTHRITIS, UNSPECIFIED 08/20/2018 Jessica PINA MD Ot R06.02 SHORTNESS OF BREATH 08/20/2018 Jessica PINA MD Ot R07.9 CHEST PAIN, UNSPECIFIED 08/20/2018 Jessica PINA MD Ot R94.31 ABNORMAL ELECTROCARDIOGRAM [ECG] [EKG] 08/20/2018 Ot I20.8 OTHER FORMS OF ANGINA PECTORIS 08/26/2018 Jessica PINA MD Ot E66.9 OBESITY, UNSPECIFIED 08/26/2018 Jessica PINA MD Ot M19.91 PRIMARY OSTEOARTHRITIS, UNSPECIFIED SITE 08/26/2018 Jessica PINA MD Ot R06.02 SHORTNESS OF BREATH 08/26/2018 Jessica PINA MD Ot R07.9 CHEST PAIN, UNSPECIFIED 08/26/2018 Jessica PINA MD Ot R94.31 ABNORMAL ELECTROCARDIOGRAM [ECG] [EKG] 08/26/2018 Jessica PINA MD Ot E66.01 MORBID (SEVERE) OBESITY DUE TO EXCESS CA 08/26/2018 Jessica PINA MD Ot I25.10 ATHSCL HEART DISEASE OF [place] CORONARY 08/26/2018 Jessica PINA MD Ot L40.50 ARTHROPATHIC PSORIASIS, UNSPECIFIED 08/26/2018 Jessica PINA MD Ot R06.02 SHORTNESS OF BREATH 08/26/2018 Jessica PINA MD Ot R07.89 OTHER CHEST PAIN 08/26/2018 Jessica PINA MD Ot Z82.49 FAMILY HX OF ISCHEM HEART DIS AND OTH DI 08/28/2018 Jessica PINA MD Ot E66.01 MORBID (SEVERE) OBESITY DUE TO EXCESS CA 08/28/2018 Jessica PINA MD Ot I25.10 ATHSCL HEART DISEASE OF [place] CORONARY 08/28/2018 Jessica PINA MD Ot L40.50 ARTHROPATHIC PSORIASIS, UNSPECIFIED 08/28/2018 Jessica PINA MD Ot R06.02 SHORTNESS OF BREATH 08/28/2018 Jessica PINA MD Ot R07.89 OTHER CHEST PAIN 08/28/2018 Jessica PINA MD Ot Z82.49 FAMILY HX OF ISCHEM HEART DIS AND OTH DI 09/01/2018 Jessica PINA MD Ot E66.01 MORBID (SEVERE) OBESITY DUE TO EXCESS CA 09/01/2018 Jessica PINA MD Ot I25.10 ATHSCL HEART DISEASE OF [place] CORONARY 09/01/2018 Jessica PINA MD Ot L40.50 ARTHROPATHIC PSORIASIS, UNSPECIFIED 09/01/2018 Jessica PINA MD Ot R06.02 SHORTNESS OF BREATH 09/01/2018 Jessica PINA MD Ot R07.89 OTHER CHEST PAIN 09/01/2018 Jessica PINA MD Ot Z82.49 FAMILY HX OF ISCHEM HEART DIS AND OTH DI 09/04/2018 Jessica PINA MD Ot E66.9 OBESITY, UNSPECIFIED 09/04/2018 Jessica PINA MD Ot M19.90 UNSPECIFIED OSTEOARTHRITIS, UNSPECIFIED 09/04/2018 Jessica PINA MD Ot R06.02 SHORTNESS OF BREATH 09/04/2018 Jessica PINA MD Ot R07.9 CHEST PAIN, UNSPECIFIED 09/04/2018 Jessica PINA MD Ot R94.31 ABNORMAL ELECTROCARDIOGRAM [ECG] [EKG] 09/11/2018 ИРИНА CHERRY MD Ot D64.9 ANEMIA, UNSPECIFIED 09/11/2018 ИРИНА CHERRY MD Ot E66.9 OBESITY, UNSPECIFIED 09/11/2018 ИРИНА CHERRY MD Ot E78.5 HYPERLIPIDEMIA, UNSPECIFIED 09/11/2018 ИРИНА CHERRY MD Ot E83.51 HYPOCALCEMIA 09/11/2018 ИРИНА CHERRY MD Ot G47.00 INSOMNIA, UNSPECIFIED 09/11/2018 ИРИНА CHERRY MD Ot H57.89 OTHER SPECIFIED DISORDERS OF EYE AND ADN 09/11/2018 ИРИНА CHERRY MD Ot I10 ESSENTIAL (PRIMARY) HYPERTENSION 09/11/2018 ИРИНА CHERRY MD Ot I25.119 ATHSCL HEART DISEASE OF [place] COR ART W 09/11/2018 ИРИНА CHERRY MD E Ot I48.0 PAROXYSMAL ATRIAL FIBRILLATION 09/11/2018 ИРИНА CHERRY MD E Ot J30.2 OTHER SEASONAL ALLERGIC RHINITIS 09/11/2018 ИРИНА CHERRY MD E Ot K59.09 OTHER CONSTIPATION 09/11/2018 ИРИНА CHERRY MD E Ot K64.9 UNSPECIFIED HEMORRHOIDS 09/11/2018 ИРИНА CHERRY MD Ot L21.9 SEBORRHEIC DERMATITIS, UNSPECIFIED 09/11/2018 ИРИНА CHERRY MD E Ot L40.50 ARTHROPATHIC PSORIASIS, UNSPECIFIED 09/11/2018 ИРИНА CHERRY MD E Ot M19.041 PRIMARY OSTEOARTHRITIS, RIGHT HAND 09/11/2018 ИРИНА CHERRY MD E Ot M19.042 PRIMARY OSTEOARTHRITIS, LEFT HAND 09/11/2018 ИРИНА CHERRY MD E Ot M19.90 UNSPECIFIED OSTEOARTHRITIS, UNSPECIFIED 09/11/2018 ИРИНА CHERRY MD E Ot M54.2 CERVICALGIA 09/11/2018 ИРИНА CHERRY MD E Ot M54.6 PAIN IN THORACIC SPINE 09/11/2018 ИРИНА CHERRY MD E Ot R05 COUGH 09/11/2018 ИРИНА CHERRY MD E Ot R53.81 OTHER MALAISE 09/11/2018 ИРИНА CHERRY MD E Ot Z48.812 ENCNTR FOR SURGICAL AFTCR FOLLOWING SURG 09/11/2018 ИРИНА CHERRY MD Ot Z68.35 BODY MASS INDEX (BMI) 35.0-35.9, ADULT 09/11/2018 ИРИНА CHERRY MD Ot Z79.02 GRAIN WEIGHER (CURRENT) USE OF ANTITHROMBOTI 09/11/2018 ИРИНА CHERRY MD Ot Z87.891 PERSONAL HISTORY OF NICOTINE DEPENDENCE 09/11/2018 ИРИНА CHERRY MD Ot Z90.49 ACQUIRED ABSENCE OF OTHER SPECIFIED PART 09/11/2018 ИРИНА CHERRY MD Ot Z95.1 PRESENCE OF AORTOCORONARY BYPASS GRAFT 09/17/2018 Jessica PINA MD Ot E66.9 OBESITY, UNSPECIFIED 09/17/2018 Jessica PINA MD Ot M19.91 PRIMARY OSTEOARTHRITIS, UNSPECIFIED SITE 09/17/2018 Jessica PINA MD Ot R06.02 SHORTNESS OF BREATH 09/17/2018 Jessica PINA MD Ot R07.9 CHEST PAIN, UNSPECIFIED 09/17/2018 Jessica PINA MD Ot R94.31 ABNORMAL ELECTROCARDIOGRAM [ECG] [EKG] 12/05/2018 AISSATOU MIRAMONTES MD Ot R07.81 PLEURODYNIA 12/05/2018 AISSATOU MIRAMONTES MD Ot R07.89 OTHER CHEST PAIN 12/05/2018 AISSATOU MIRAMONTES MD Ot Z98.890 OTHER SPECIFIED POSTPROCEDURAL STATES 12/16/2018 Jessica PINA MD Ot I48.0 PAROXYSMAL ATRIAL FIBRILLATION 12/16/2018 ANTONIO DESIR MD Ot Z48.812 ENCNTR FOR SURGICAL AFTCR FOLLOWING SURG 12/16/2018 ANTONIO DESIR MD Ot Z95.1 PRESENCE OF AORTOCORONARY BYPASS GRAFT 12/24/2018 AISSATOU MIRAMONTES MD Ot R07.81 PLEURODYNIA 12/24/2018 AISSATOU MIRAMONTES MD Ot R07.89 OTHER CHEST PAIN 12/24/2018 AISSATOU MIRAMONTES MD Ot Z98.890 OTHER SPECIFIED POSTPROCEDURAL STATES 01/18/2019 ANTONIO DESIR MD Ot Z48.812 ENCNTR FOR SURGICAL AFTCR FOLLOWING SURG 01/18/2019 ANTONIO DESIR MD Ot Z95.1 PRESENCE OF AORTOCORONARY BYPASS GRAFT 01/19/2019 ANTONIO DESIR MD Ot Z48.812 ENCNTR FOR SURGICAL AFTCR FOLLOWING SURG 01/19/2019 ANTONIO DSEIR MD Ot Z95.1 PRESENCE OF AORTOCORONARY BYPASS GRAFT 01/20/2019 MANI TSAI, SUSU M Ot 276.8 HYPOPOTASSEMIA 01/20/2019 COLTHARP DO, JAMAR A Ot R05 COUGH 01/20/2019 Ot I20.8 OTHER FORMS OF ANGINA PECTORIS 01/20/2019 Jessica PINA MD Ot E66.9 OBESITY, UNSPECIFIED 01/20/2019 Jessica PINA MD Ot M19.90 UNSPECIFIED OSTEOARTHRITIS, UNSPECIFIED 01/20/2019 Jessica PINA MD Ot R06.02 SHORTNESS OF BREATH 01/20/2019 Jessica PINA MD Ot R07.9 CHEST PAIN, UNSPECIFIED 01/20/2019 Jessica PINA MD Ot R94.31 ABNORMAL ELECTROCARDIOGRAM [ECG] [EKG] 01/20/2019 Jessica PINA MD Ot E66.9 OBESITY, UNSPECIFIED 01/20/2019 Jessica PINA MD Ot M19.91 PRIMARY OSTEOARTHRITIS, UNSPECIFIED SITE 01/20/2019 Jessica PINA MD Ot R06.02 SHORTNESS OF BREATH 01/20/2019 Jessica PINA MD Ot R07.9 CHEST PAIN, UNSPECIFIED 01/20/2019 Jessica PINA MD Ot R94.31 ABNORMAL ELECTROCARDIOGRAM [ECG] [EKG] 01/20/2019 Jessica PINA MD Ot I48.0 PAROXYSMAL ATRIAL FIBRILLATION 01/20/2019 AISSATOU MIRAMONTES MD Ot R07.81 PLEURODYNIA 01/20/2019 AISSATOU MIRAMONTES MD Ot R07.89 OTHER CHEST PAIN 01/20/2019 AISSATOU MIRAMONTES MD Ot Z98.890 OTHER SPECIFIED POSTPROCEDURAL STATES 01/20/2019 ANTONIO DESIR MD Ot Z48.812 ENCNTR FOR SURGICAL AFTCR FOLLOWING SURG 01/20/2019 ANTONIO DESIR MD Ot Z95.1 PRESENCE OF AORTOCORONARY BYPASS GRAFT 01/20/2019 AISSATOU MIRAMONTES MD Ot R07.81 PLEURODYNIA 01/20/2019 AISSATOU MIRAMONTES MD Ot R07.89 OTHER CHEST PAIN 01/20/2019 AISSATOU MIRAMONTES MD Ot Z98.890 OTHER SPECIFIED POSTPROCEDURAL STATES 01/20/2019 Jessica PINA MD Ot I48.0 PAROXYSMAL ATRIAL FIBRILLATION 01/20/2019 Jessica PINA MD Ot E66.9 OBESITY, UNSPECIFIED 01/20/2019 Jessica PINA MD Ot M19.91 PRIMARY OSTEOARTHRITIS, UNSPECIFIED SITE 01/20/2019 Jessica PINA MD Ot R06.02 SHORTNESS OF BREATH 01/20/2019 Jessica PINA MD Ot R07.9 CHEST PAIN, UNSPECIFIED 01/20/2019 Jessica PINA MD Ot R94.31 ABNORMAL ELECTROCARDIOGRAM [ECG] [EKG] 01/20/2019 Jessica PINA MD Ot E66.9 OBESITY, UNSPECIFIED 01/20/2019 Jessica PINA MD Ot M19.90 UNSPECIFIED OSTEOARTHRITIS, UNSPECIFIED 01/20/2019 Jessica PINA MD Ot R06.02 SHORTNESS OF BREATH 01/20/2019 Jessica PINA MD Ot R07.9 CHEST PAIN, UNSPECIFIED 01/20/2019 Jessica PINA MD Ot R94.31 ABNORMAL ELECTROCARDIOGRAM [ECG] [EKG] 01/20/2019 Ot I20.8 OTHER FORMS OF ANGINA PECTORIS 01/21/2019 Jessica PINA MD Ot E66.9 OBESITY, UNSPECIFIED 01/21/2019 Jessica PINA MD Ot M19.90 UNSPECIFIED OSTEOARTHRITIS, UNSPECIFIED 01/21/2019 Jessica PINA MD Ot R06.02 SHORTNESS OF BREATH 01/21/2019 Jessica PINA MD Ot R07.9 CHEST PAIN, UNSPECIFIED 01/21/2019 Jessica PINA MD Ot R94.31 ABNORMAL ELECTROCARDIOGRAM [ECG] [EKG] 01/22/2019 Jessica PINA MD Ot E66.9 OBESITY, UNSPECIFIED 01/22/2019 Jessica PINA MD Ot M19.90 UNSPECIFIED OSTEOARTHRITIS, UNSPECIFIED 01/22/2019 Jessica PINA MD Ot R06.02 SHORTNESS OF BREATH 01/22/2019 Jessica PINA MD Ot R07.9 CHEST PAIN, UNSPECIFIED 01/22/2019 Jessica PINA MD Ot R94.31 ABNORMAL ELECTROCARDIOGRAM [ECG] [EKG] 01/23/2019 ANTONIO DESIR MD Ot Z48.812 ENCNTR FOR SURGICAL AFTCR FOLLOWING SURG 01/23/2019 ANTONIO DESIR MD Ot Z95.1 PRESENCE OF AORTOCORONARY BYPASS GRAFT 02/13/2019 Jessica PINA MD Ot I48.0 PAROXYSMAL ATRIAL FIBRILLATION 02/14/2019 Jessica PINA MD Ot I48.0 PAROXYSMAL ATRIAL FIBRILLATION 02/23/2019 ANTONIO DESIR MD, Ot Z48.812 ENCNTR FOR SURGICAL AFTCR FOLLOWING SURG 02/23/2019 ANTONIO DESIR MD, Ot Z95.1 PRESENCE OF AORTOCORONARY BYPASS GRAFT 02/25/2019 ANTONIO DESIR MD, Ot Z48.812 ENCNTR FOR SURGICAL AFTCR FOLLOWING SURG 02/25/2019 ANTONIO DESIR MD, Ot Z95.1 PRESENCE OF AORTOCORONARY BYPASS GRAFT Procedures Code Description Performed By Performed On 38.93 VENOUS CATHETERIZATION NEC 04/11/2013 45.76 OPEN AND OTHER SIGMOIDECTOMY 04/11/2013 46.11 TEMPORARY COLOSTOMY 04/11/2013 45.62 PART SM BOWEL RESECT NEC 07/16/2013 45.91 SM-TO-SM BOWEL ANASTOM 07/16/2013 46.52 LG BOWEL STOMA CLOSURE 07/16/2013 Results Test Result Range PT panel in platelet poor plasma by coagulation assay - 08/26/18 13:01 Prothrombin time (PT) in platelet poor plasma by coagulation assay 13.7 s 12.2-14.7 INR in platelet poor plasma or blood by coagulation assay 1.0 0.8-1.4 Activated partial thromboplastin time (aPTT) in platelet poor plasma bycoagulation assay - 08/26/18 13:01 Activated partial thromboplastin time (aPTT) in platelet poor plasma bycoagulation assay 31 s 24-35 Automated blood complete blood count (hemogram) panel - 08/26/18 13:01 Blood leukocytes automated count (number/volume) 4.8 10*3/uL 4.3-11.0 Blood erythrocytes automated count (number/volume) 3.81 10*6/uL 4.35-5.85 Venous blood hemoglobin measurement (mass/volume) 12.7 g/dL 13.3-17.7 Blood hematocrit (volume fraction) 36 % 40-54 Automated erythrocyte mean corpuscular volume 94 [foz_us] 80-99 Automated erythrocyte mean corpuscular hemoglobin (mass per erythrocyte) 33 pg 25-34 Automated erythrocyte mean corpuscular hemoglobin concentration measurement ( mass/volume) 36 g/dL 32-36 Automated erythrocyte distribution width ratio 14.4 % 10.0-14.5 Automated blood platelet count (count/volume) 80 10*3/uL 130-400 Automated blood platelet mean volume measurement 9.7 [foz_us] 7.4-10.4 Comprehensive metabolic panel - 08/26/18 13:01 Serum or plasma sodium measurement (moles/volume) 137 mmol/L 135-145 Serum or plasma potassium measurement (moles/volume) 3.9 mmol/L 3.6-5.0 Serum or plasma chloride measurement (moles/volume) 105 mmol/L 98-107 Carbon dioxide 22 mmol/L 21-32 Serum or plasma anion gap determination (moles/volume) 10 mmol/L 5-14 Serum or plasma urea nitrogen measurement (mass/volume) 14 mg/dL 7-18 Serum or plasma creatinine measurement (mass/volume) 0.87 mg/dL 0.60-1.30 Serum or plasma urea nitrogen/creatinine mass ratio 16 NRG Serum or plasma creatinine measurement with calculation of estimated glomerular filtration rate > NRG Serum or plasma glucose measurement (mass/volume) 87 mg/dL 70-105 Serum or plasma calcium measurement (mass/volume) 9.1 mg/dL 8.5-10.1 Serum or plasma total bilirubin measurement (mass/volume) 0.8 mg/dL 0.1-1.0 Serum or plasma alkaline phosphatase measurement (enzymatic activity/volume) 68 U/L 40-136 Serum or plasma aspartate aminotransferase measurement (enzymatic activity/ volume) 20 U/L 5-34 Serum or plasma alanine aminotransferase measurement (enzymatic activity/volume ) 23 U/L 0-55 Serum or plasma protein measurement (mass/volume) 7.4 g/dL 6.4-8.2 Serum or plasma albumin measurement (mass/volume) 3.8 g/dL 3.2-4.5 CALCIUM CORRECTED 9.3 mg/dL 8.5-10.1 Methicillin resistant Staphylococcus aureus (MRSA) screening culture - 13:01 Methicillin resistant Staphylococcus aureus (MRSA) screening culture NEG NRG Complete blood count (CBC) with automated white blood cell (WBC) differential - 09/06/18 05:30 Blood leukocytes automated count (number/volume) 8.8 10*3/uL 4.3-11.0 Blood erythrocytes automated count (number/volume) 2.57 10*6/uL 4.35-5.85 Venous blood hemoglobin measurement (mass/volume) 8.4 g/dL 13.3-17.7 Blood hematocrit (volume fraction) 26 % 40-54 Automated erythrocyte mean corpuscular volume 98 [foz_us] 80-99 Automated erythrocyte mean corpuscular hemoglobin (mass per erythrocyte) 33 pg 25-34 Automated erythrocyte mean corpuscular hemoglobin concentration measurement ( mass/volume) 34 g/dL 32-36 Automated erythrocyte distribution width ratio 15.5 % 10.0-14.5 Automated blood platelet count (count/volume) 140 10*3/uL 130-400 Automated blood platelet mean volume measurement 9.0 [foz_us] 7.4-10.4 Automated blood neutrophils/100 leukocytes 65 % 42-75 Automated blood lymphocytes/100 leukocytes 20 % 12-44 Blood monocytes/100 leukocytes 11 % 0-12 Automated blood eosinophils/100 leukocytes 4 % 0-10 Automated blood basophils/100 leukocytes 0 % 0-10 Blood neutrophils automated count (number/volume) 5.1 10*3 1.8-7.8 Blood lymphocytes automated count (number/volume) 1.6 10*3 1.0-4.0 Blood monocytes automated count (number/volume) 0.9 10*3 0.0-1.0 Automated eosinophil count 0.3 10*3/uL 0.0-0.3 Automated blood basophil count (count/volume) 0.0 10*3/uL 0.0-0.1 Whole blood basic metabolic panel - 09/06/18 05:30 Serum or plasma sodium measurement (moles/volume) 136 mmol/L 135-145 Serum or plasma potassium measurement (moles/volume) 3.9 mmol/L 3.6-5.0 Serum or plasma chloride measurement (moles/volume) 105 mmol/L 98-107 Carbon dioxide 19 mmol/L 21-32 Serum or plasma anion gap determination (moles/volume) 12 mmol/L 5-14 Serum or plasma urea nitrogen measurement (mass/volume) 17 mg/dL 7-18 Serum or plasma creatinine measurement (mass/volume) 0.93 mg/dL 0.60-1.30 Serum or plasma urea nitrogen/creatinine mass ratio 18 NRG Serum or plasma creatinine measurement with calculation of estimated glomerular filtration rate > NRG Serum or plasma glucose measurement (mass/volume) 92 mg/dL 70-105 Serum or plasma calcium measurement (mass/volume) 8.4 mg/dL 8.5-10.1 Encounters ACCT No. Visit Date/Time Discharge Status Pt. Type Provider Facility Loc./Unit Complaint [id number] 10/20/2014 16:27:25 10/20/2014 23:59:59 CLS Outpatient Milagros Wolf [id number] 08/13/2014 15:39:15 08/13/2014 23:59:59 CLS Outpatient Milagros Wolf [id number] 02/28/2019 09:08:00 02/28/2019 23:59:59 CLS Outpatient ANTONIO DESIR MD [facility] CR POST ACB [id number] 02/14/2019 00:12:00 02/14/2019 23:59:59 CLS Preadmit Jessica PINA MD [facility] CARD PAF [id number] 01/20/2019 09:07:00 02/13/2019 00:01:00 DIS Outpatient Jessica PINA MD [facility] CARD PAF [id number] 01/31/2019 11:43:00 01/31/2019 23:59:59 CLS Outpatient Jessica PINA MD [facility] CARD PAF, DIZZINESS, SOB [id number] 01/22/2019 14:19:00 01/22/2019 23:59:59 CLS Preadmit Jessica PINA MD [facility] CARD PAF, DIZZINESS, SOB [id number] 01/15/2019 10:42:00 01/19/2019 00:01:00 DIS Outpatient ANTONIO DESIR MD [facility] CR POST ACB [id number] 12/04/2018 10:54:00 12/04/2018 23:59:59 CLS Outpatient AISSATOU MIRAMONTES MD [facility] RAD RT CHEST PAIN [id number] 09/04/2018 13:33:00 09/11/2018 15:00:00 DIS Inpatient ИРИНА CHERRY MD [facility] IRF TOXIC MYOPATHY [id number] 08/26/2018 11:53:00 08/26/2018 18:00:00 DIS Outpatient Jessica PINA MD [facility] CATH CHEST PAIN,SHORTNESS OF BREATH,ABN NUC TEST [id number] 08/22/2018 07:11:00 08/22/2018 23:59:59 CLS Outpatient Jessica PINA MD [facility] CARD R94.31 ABN EKG [id number] 08/15/2018 11:09:00 08/15/2018 23:59:59 CLS Outpatient Jessica PINA MD [facility] CARD R94.31 ABN EKG [id number] 12/29/2016 11:07:00 12/29/2016 23:59:59 CLS Outpatient COLTHARP JAMAR WINTERS [facility] RAD COUGH [id number] 07/31/2013 11:25:00 07/31/2013 23:59:59 CLS Outpatient SUSU SINGLETON MD [facility] LAB LOW K [id number] 07/24/2013 10:27:00 07/24/2013 13:30:00 DIS Emergency WALTER BOB APRN [facility] ER WOUND CHECK [id number] 07/16/2013 08:05:00 07/20/2013 13:20:00 DIS Inpatient SUSU SINGLETON MD [facility] SURGICAL DIVERTICULAR STRICTURE [id number] 07/14/2013 08:46:00 07/14/2013 11:55:00 DIS Outpatient SUSU SINGLETON MD [facility] SDC DIVERTICULAR STRICTURE [id number] 07/09/2013 10:11:00 07/09/2013 23:59:59 CLS Outpatient SUSU SINGLETON MD [facility] PREOP DIVERTICULAR STRICTURE [id number] 06/18/2013 09:15:00 06/18/2013 12:48:00 DIS Outpatient SUSU SINGLETON MD [facility] WOUNDCARE ABD WOUND [id number] 04/11/2013 14:10:00 04/18/2013 11:00:00 DIS Inpatient GELLENQUIANA FARRELL DO [facility] SURGICAL OBSTRUCTION OF SIGNOIT,CONSTIPATION,WT LOSS,VOMITI [id number] 04/09/2013 11:34:00 04/09/2013 23:59:59 CLS Outpatient QUIANA DUVAL DO [facility] RAD CONSTIPATION,ABD PAIN ,DISTENDED STOMACH,WT LOSS [id number] 03/13/2019 09:59:00 ACT Outpatient Jessica PINA MD [facility] PAF [id number] 07/03/2018 14:45:00 Document Registration
[2019-03-13 10:49] VITALS: BP 144/69
--- NOTE | 2019-03-13 11:20 | Implantation of Loop Monitor ---
Implant of Loop Monitior PROCEDURE PHYSICIAN: Susan Muñiz MD IMPLANTATION OF LOOP MONITOR REPORT DATE OF PROCEDURE: 03/13/19 ATTENDING PHYSICIAN: Dr. Shahab Muñiz. PERFORMING PHYSICIAN: Dr. Shahab Muñiz. INDICATION: Long-term surveillance of atrial fibrillation PREOP DIAGNOSIS: Long-term surveillance of atrial fibrillation POSTOP DIAGNOSIS: Paroxysmal Atrial fibrillation, s/p implantation of loop recorder. PROCEDURE DETAILS: The patient is a 74 male with history of paroxysmal atrial fibrillation requiring long-term surveillance. Therefore implantable loop recorder was discussed and agreed with the patient. Informed consent was taken. All risks and complications were discussed at length. The patient was draped and prepped in the usual sterile fashion. Local anesthesia was lidocaine, which was given in the substernal area close to the 4th intercostal space. Loop monitor was implanted according to the protocol. Steri-Strips were placed at the end of the procedure. There were no complications and the patient tolerated the procedure well. ANESTHESIA: Local anesthesia with lidocaine. COMPLICATIONS: None CONTRAST/FLUOROSCOPY: None CONCLUSION: 1. Successful implantation of loop monitor for PAF. 2. No complication and the patient tolerated the procedure well. Susan Muñiz MD, FHRS, CCDS Cardiac Electrophysiology Jessica MUÑIZ MD Mar 13, 2019 11:20 am
== END | disposition home or self-care (01) ==
LOC: CATH 09:59
PROVIDERS: ATTEND Internal Medicine Interventional Cardiology
DX: I48.0 Paroxysmal atrial fibrillation (principal); I25.10 Atherosclerotic heart disease of native coronary artery without angina pectoris; I10 Essential (primary) hypertension; E78.5 Hyperlipidemia, unspecified; I65.23 Occlusion and stenosis of bilateral carotid arteries; L40.50 Arthropathic psoriasis, unspecified; E66.9 Obesity, unspecified; Z68.34 Body mass index [BMI] 34.0-34.9, adult; Z82.49 Family history of ischemic heart disease and other diseases of the circulatory system; Z95.1 Presence of aortocoronary bypass graft; Z87.891 Personal history of nicotine dependence; Z79.82 Long term (current) use of aspirin; Z79.899 Other long term (current) drug therapy
CPT/HCPCS: 33285

== ENCOUNTER 2019-04-02 14:05 | Outpatient (RCR) | payer MEDICARE, MEDICAID ==
[~2019-04-02 14:05] MED LIST changes: -LIDOCAINE 1% INJ 20 ML 20 ML VIAL ONE
== END 2019-04-30 | disposition home or self-care (01) ==
LOC: CR3 14:05
PROVIDERS: ATTEND Thoracic Surgery (Cardiothoracic Vascular Surgery)
DX: Z29.8 Encounter for other specified prophylactic measures (principal)

== ENCOUNTER → 2019-05-07 | Outpatient (CLI) | payer MEDICARE, MEDICAID ==
--- NOTE | 2019-05-07 15:22 | Diagnostic Imaging Report ---
INDICATION: XIPHOID STERNAL PAIN EPIGASTRIC PAIN COMPARISON: 12/04/2018 FINDINGS: Frontal and lateral views of the chest demonstrate normal heart size and pulmonary vascularity. The lungs are clear. There are no signs of infiltrate, pleural effusions or pneumothoraces. The visualized osseous structures show no acute abnormalities. Sternotomy wires are noted. IMPRESSION: 1. No acute process. No signs of infiltrates, effusions or pneumothoraces. Dictated by: Dictated on workstation # [id number]
== END ==
LOC: RAD 13:35
PROVIDERS: ATTEND Family Medicine
DX: R10.13 Epigastric pain (principal); R07.2 Precordial pain
CPT/HCPCS: 71046

== ENCOUNTER 2019-07-07 14:45 | Outpatient (RCR) | payer MEDICARE, MEDICAID | END 2019-07-16 | disposition home or self-care (01) | LOC: CR3 14:45 | PROVIDERS: ATTEND Thoracic Surgery (Cardiothoracic Vascular Surgery) | DX: Z29.8 Encounter for other specified prophylactic measures (principal) ==

== ENCOUNTER 2019-08-29 17:41 | Emergency (ER) | payer MEDICAID, MEDICARE ==
[~2019-08-29] VITALS: Ht 182 cm; Wt 118.0 kg
--- NOTE | 2019-08-29 18:13 | ED Back Pain ---
General Chief Complaint: Back Problems Stated Complaint: BACK PAIN Source of Information: Patient History of Present Illness Date Seen by Provider: Aug 29, 2019 Time Seen by Provider: 18:00 Initial Comments PT ARRIVES VIA POV FROM HOME AMBULATES IN WITH A CANE, SLOWLY PT C/O LOWER BACK PAIN PT STATES "I THREW MY BACK OUT" STATES A WEEK AGO, HE WAS SWEEPING THE KITCHEN FLOOR, AND "HIS BACK WENT OUT" AND "BROUGHT ME TO MY KNEES" STATES YESTERDAY HE "REACHED FOR A POT" AND "THREW HIS BACK OUT" AGAIN, AND "BROUGHT ME TO MY KNEES" "COULDN'T WALK, COULDN'T STAND UP, COULDN'T BREATHE, COULDN'T SEE WITH MY EYES CLOSED" DUE TO PAIN NO ACTUAL FALL OR DIRECT TRAUMA TO BACK HAS OCCASIONAL NUMBNESS/TINGLING TO SIDES OF BOTH LEGS NO MOTOR DEFICITS NO PROBLEMS WITH BOWEL OR BLADDER FUNCTION HAS HISTORY OF CHRONIC BACK PAIN, NO BACK SURGERY HAS NOT SOUGHT CARE UNTIL TODAY ( IT IS SUNDAY NIGHT) SYMPTOMS NO DIFFERENT TODAY TOOK 1 TYLENOL THIS AM, AND IT HELPED, BUT HAS NOT TAKEN ANYTHING ELSE FOR PAIN, OTHER THAN PUTTING "BIOFREEZE" ON IT Other Comments PCP: DR. Lidia MIRAMONTES Allergies and Home Medications Allergies Coded Allergies: No Known Drug Allergies (Unverified , 04/09/13) Home Medications Amiodarone HCl 200 Mg Tablet, 200 MG PO BID Prescribed by: ИРИНА CHERRY on 09/10/182010 Aspirin 81 Mg Tablet.dr, 81 MG PO DAILY Prescribed by: ИРИНА CHERRY on 09/10/182010 Atorvastatin Calcium 40 Mg Tablet, 40 MG PO HS Prescribed by: ИРИНА CHERRY on 09/10/182010 Betamethasone Dipropionate 15 Gm Cream..g., TP BID, (Reported) Clopidogrel Bisulfate 75 Mg Tablet, 75 MG PO DAILY Prescribed by: ИРИНА CHERRY on 09/10/182010 Cyclobenzaprine HCl 10 Mg Tablet, 10 MG PO Q8H Prescribed by: VASYL PACHECO on 08/29/191906 Fexofenadine HCl 60 Mg Tablet, 60 MG PO BID, (Reported) Folic Acid 1 Mg Tablet, 1 MG PO DAILY, (Reported) Gentamicin Sulfate 15 Gm Cream..g., TP BID, (Reported) Lisinopril 10 Mg Tablet, 10 MG PO DAILY Prescribed by: ИРИНА CHERRY on 09/10/182010 Methylprednisolone 4 Mg Tab.ds.pk, 4 MG PO UD Prescribed by: VASYL PACHECO on 08/29/191906 Metoprolol Succinate 25 Mg Tab.er.24h, 25 MG PO DAILY Prescribed by: ИРИНА CHERRY on 09/10/182010 Nystatin 15 Gm Cream..g., TP BID, (Reported) Tramadol HCl 50 Mg Tablet, 50 MG PO TID PRN for PAIN-MODERATE Prescribed by: ИРИНА CHERRY on 09/10/182010 Tramadol HCl 50 Mg Tablet, 50 MG PO Q4H PRN for PAIN-MODERATE Prescribed by: VASYL PACHECO on 08/29/191906 Patient Home Medication List Home Medication List Reviewed: Yes Review of Systems Constitutional: no symptoms reported Gastrointestinal: no symptoms reported Genitourinary: no symptoms reported Musculoskeletal: see HPI Skin: no symptoms reported Psychiatric/Neurological: See HPI Past Acjdvir-Qgezux-Dtnhcj Hx Patient Social History Type Used: Cigarettes Former Smoker, Quit: Aug 26, 1998 Recent Foreign Travel: No Contact w/Someone Who Travel: No Recent Hopitalizations: Yes (CABG 08-29-18) Immunizations Up To Date Tetanus Booster (TDap): More than 5yrs Date of Pneumonia Vaccine: Sep 19, 2012 Seasonal Allergies Seasonal Allergies: Yes Past Medical History Surgeries: Yes (COLECTOMY, COLOSTOMY REVERSAL, HERNIA) CABG Respiratory: No Currently Using CPAP: No Currently Using BIPAP: No Cardiac: Yes Atrial Fibrillation, Coronary Artery Disease Neurological: No Reproductive Disorders: No Genitourinary: No Gastrointestinal: Yes (COLOSTOMY REVERSAL) Diverticulosis Musculoskeletal: Yes (ARTHRITIS IN HANDS) Arthritis, Fractures Endocrine: No Cataract Loss of Vision: Denies Hearing Impairment: Denies Cancer: No Psychosocial: No Integumentary: Yes (Rosacea) Blood Disorders: No Adverse Reaction/Blood Tranf: No Family Medical History Cardiovascular disease 19 FATHER G8 SISTER Physical Exam Vital Signs Vital Signs - First Documented 08/29/19 17:48 Temp 36.0 Pulse 74 Resp 18 B/P (MAP) 143/75 (97) Pulse Ox 98 Capillary Refill : Height, Weight, BMI Height: 6'0.00" Weight: 257lbs. 0.0oz. [id number]; 34.9 BMI Method:Stated General Appearance: No Apparent Distress, Obese Cardiovascular: Regular Rate, Rhythm, No Murmur, Normal Peripheral Pulses Respiratory: Normal Breath Sounds, No Accessory Muscle Use, No Respiratory Distress Gastrointestinal: Non Tender, Soft Back: Decreased Range of Motion, Vertebral Tenderness (DIFFUSE LOWER BACK TENDERNESS, ESPECIALLY OVER BILATERAL SI JOINTS) Extremity: No Pedal Edema Neurologic/Psychiatric: Alert, Oriented x3, No Motor/Sensory Deficits, Normal Mood/Affect, lactation consultant II-XII Norm as Tested Skin: Normal Color, Warm/Dry Progress/Results/Core Measures Results/Orders My Orders Orders - VASYL PACHECO DO Ct Lumbar Spine Wo (08/29/19 18:06) Orphenadrine Injection (Norflex Injectio (08/29/19 19:15) Ketorolac Injection (Toradol Injection) (08/29/19 19:15) Vital Signs/I&O 08/29/19 17:48 Temp 36.0 Pulse 74 Resp 18 B/P (MAP) 143/75 (97) Pulse Ox [address] LUMBAR SPINE--NO ACUTE PROCESS, 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 Referrals: AISSATOU MIRAMONTES MD (PCP/Family) Primary Care Physician Patient Instructions: Low Back Pain (DC), Lumbar Muscle Strain (DC) Add. Discharge Instructions: MOIST HEAT TO LOW BACK AT 20 MINUTE INTERVALS NO TWISTING OR BENDING AT WAIST FOLLOW UP WITH DR. MIRAMONTES IN 3-4 DAYS FOR FURTHER CARE All discharge instructions reviewed with patient and/or family. Voiced understanding. Scripts Tramadol HCl (Ultram) 50 Mg Tablet 50 MG PO Q4H PRN for PAIN-MODERATE for 3 Days, TAB Prov: VASYL PACHECO DO 08/29/19 Cyclobenzaprine HCl (Cyclobenzaprine HCl) 10 Mg Tablet 10 MG PO Q8H, #15 TAB Prov: VASYL PACHECO DO 08/29/19 Methylprednisolone (Medrol) 4 Mg Tab.ds.pk 4 MG PO UD, #1 PKG Prov: VASYL PACHECO DO 08/29/19 VASYL PACHECO DO Aug 29, 2019 18:13
--- NOTE | 2019-08-29 18:58 | Diagnostic Imaging Report ---
PROCEDURE: CT lumbar spine without contrast. TECHNIQUE: Multiple contiguous axial images were obtained through the lumbar spine without the use of intravenous contrast. Sagittal and coronal reformations were then performed. Auto Exposure Controls were utilized during the CT exam to meet ALARA standards for radiation dose reduction. INDICATION: Back pain. COMPARISON: There are no prior exams available for comparison. FINDINGS: The reconstructed sagittal images show the vertebral body height and alignment to be generally within normal limits. The intervertebral spaces are fairly well-maintained. There does appear to be fairly severe trefoil stenosis at L4-L5 and there is mild narrowing of the neural foramen bilaterally at this level. There is also moderate trefoil stenosis at L3-L4 with neural foraminal narrowing. There is no evidence for a high-grade central stenosis of the lumbar spine otherwise. The bone windows show no sign of a fracture or of a destructive lesion. There is no evidence for a paraspinal mass. IMPRESSION: 1. There is no evidence for an acute bony abnormality. 2. There is trefoil stenosis at L4-L5 and to a lesser degree at L3-L4. There is also neural foraminal narrowing bilaterally at these two levels. 3. If further imaging is desired, then MRI would be recommended. Dictated by: Dictated on workstation # [id number]
[2019-08-29] MEDS ORDERED: CYCL10TA9 PO (19:07)
[2019-08-29] MEDS ORDERED: TRAM-42 PO (19:07)
[2019-08-29] MEDS ORDERED: METH4TAB PO (19:07)
[2019-08-29] MEDS ORDERED: ORPHENADRINE 60 MG/2 ML (NORFLEX) AMP IM ONE (19:15)
[2019-08-29] MEDS ORDERED: KETOROLAC 60 MG/2 ML VIAL IM ONE (19:15)
[2019-08-29 19:30] VITALS: BP 143/75
== END 2019-08-29 19:36 | disposition home or self-care (01) ==
LOC: EDUNIT# 17:41 → ER 17:42
DX: S39.012A Strain of muscle, fascia and tendon of lower back, initial encounter (principal); I48.91 Unspecified atrial fibrillation; I25.10 Atherosclerotic heart disease of native coronary artery without angina pectoris; Z79.82 Long term (current) use of aspirin; Z79.02 Long term (current) use of antithrombotics/antiplatelets; Z87.891 Personal history of nicotine dependence; Z95.1 Presence of aortocoronary bypass graft; Z82.49 Family history of ischemic heart disease and other diseases of the circulatory system; X50.1XXA Overexertion from prolonged static or awkward postures, initial encounter
CPT/HCPCS: 72131; 96372

== ENCOUNTER → 2019-11-20 | Outpatient (CLI) | payer MEDICARE ==
[~2019-11-20] MED LIST changes: +CYCL10TA9 PO; +METH4TAB PO; +TRAM-42 PO; -TRAM50TA2 PO; +TRM50T PO
--- NOTE | 2019-11-20 11:34 | Diagnostic Imaging Report ---
INDICATION: Left inguinal pain. Sonographic interrogation left groin at the area of pain was performed. There appears to be a probable lymph node at this location measuring 1.8 x 0.9 cm. No other abnormality is detected. No fluid collection is seen. IMPRESSION: Probable mildly enlarged lymph node left groin. No other significant abnormality is detected. Dictated by: Dictated on workstation # [id number]
== END ==
LOC: RAD 10:24
PROVIDERS: ATTEND Family Medicine
DX: R10.32 Left lower quadrant pain (principal)
CPT/HCPCS: 76881

== ENCOUNTER → 2019-12-23 | Outpatient (CLI) | payer MEDICARE ==
[~2019-12-23] MED LIST changes: +BETA15CR14 TP; -BETA15CR37 TP; -METO-387 PO; +MTP25TSR PO
== END ==
LOC: CARD 08:34
PROVIDERS: ATTEND Internal Medicine Interventional Cardiology
DX: I25.10 Atherosclerotic heart disease of native coronary artery without angina pectoris (principal); I48.0 Paroxysmal atrial fibrillation; M19.90 Unspecified osteoarthritis, unspecified site; I11.0 Hypertensive heart disease with heart failure; E78.5 Hyperlipidemia, unspecified; I51.89 Other ill-defined heart diseases
CPT/HCPCS: 93306

== ENCOUNTER → 2020-02-06 | Day surgery (SDC) | payer MEDICARE ==
[2020-02-06] VITALS (10 sets, daily range): BP systolic 126–168; BP diastolic 60–87
[~2020-02-06] MED LIST changes: +ADAL10SY2 SQ; +HYDROcodone/APAP 5 MG/325 MG (LORTAB) TAB PO PRN; +LIDOCAINE 1% INJ 20 ML 20 ML VIAL INJ ONE; +MIDAZOLAM 2 MG/2 ML (VERSED) VIAL IVP ONE; +NS IV 1000 ML 1,000 ML IV STA; +PRAZ1CAP2 PO; +fentaNYL INJECTION 100 MCG/2 ML AMP IVP ONE
--- NOTE | 2020-02-06 11:30 | Diagnostic Imaging Report ---
INDICATION: Elevated white blood cell count and low platelets. FINDINGS: Patient was brought to the CT suite, placed on the table in the prone position. Axial imaging through the pelvis was performed to evaluate appropriate entry site. Skin of the low back was prepped and draped in the usual sterile fashion. Small amount of 1% lidocaine was utilized for local anesthesia. Study was performed utilizing conscious sedation with radiology nursing and constant patient monitoring. Patient was given a total of 100 mcg of fentanyl intravenously. Procedure time is five minutes. Bone marrow needle was advanced and placed with its tip along the posterior cortex of the right iliac bone. The needle was advanced through the cortex utilizing the bone marrow drill. Two bone marrow aspirates were then obtained. The drill was then reattached to the needle and core biopsy was performed. Needle was withdrawn and hemostasis was obtained using manual compression. Patient tolerated the procedure well and left the department in stable condition. IMPRESSION: Successful CT-guided bone marrow aspiration and biopsy, as described. Dictated by: Dictated on workstation # [id number]
--- OUTSIDE RECORDS SUMMARY | 2020-02-06 12:40 | XMS REPORT ---
Author Author [employer] Organization [facility] Address [address] [place] [address] Care Team Providers Care Material Analyst Name Role Phone QUIANA DUVAL Unavailable LISHAAYDIN RÍOS JESSICA Unavailable COLTHARP DO, JAMAR A Unavailable Unavailable CAROLINE MORRIS MD Unavailable Unavailable COLTHARP JAMAR WINTERS Unavailable Unavailable MANI TSAI, SUSU Lopez Unavailable Unavailable GELLENDER DO, QUIANA Peter Unavailable Unavailable GELLENDER DO, QUIANA Peter Unavailable Unavailable WALTER BOB APRN Unavailable Unavailable MANI TSAI, SUSU Lopez Unavailable Unavailable AISSATOU MIRAMONTES Unavailable AISSATOU MIRAMONTES PCP Jessica PINA MD Unavailable Unavailable SEJAL PINA MD Unavailable Unavailable ANTONIO DESIR MD Unavailable Unavailable AISSATOU MIRAMONTES MD Unavailable Unavailable AISSATOU MIRAMONTES PCP VASYL PACHECO DO Unavailable Unavailable ИРИНА HINES MD Unavailable Unavailable ИРИНА HINES MD Unavailable Unavailable Allergies Normalized Allergy Reported Date of Reaction(s) Care Provider Facility Allergy Type classification allergen Allergy Onset DA (20 Unclassified No Known Drug 04-09-2013 - no information QUIANA Not Available sources.) [place]ergies [place]ENDER , [place] ([address]) Medications Medication Ingredient Drug Dose Dates Status Sig Sig Care Class(es) (Normalized) (Original) Provid er 0.4 ml 0.4 ML no 09-10-20 Complete no Adalimumab (no adalimumab adalimumab information 18 d information (Hum rosa Pen) phone) 100 mg/ml 100 MG/ML 40 Mg/0.4 Ml pen Pen Pen.ij.kit, injector (1 Injector 40 Mg source.) [Humira] Subcutaneous Every 2 Weeks Discontinued no Acetaminoph no 08-26-20 Complete take 5-1 Acetaminophe (no information en/Hydrocod information 18 d tablets by n/H ydrocodon phone) (6 one Bitart mouth every e Bitart sources.) (Lortab 5 four hours (Lortab 5 Mg) 1 Tab as needed Mg) 1 Tab Tab, 1 - 2 Tab, 1 - 2 Ea Oral Ea Oral Q4hr Prn Discontinued no Acetaminoph no 07-09-20 Complete take 5-500 Acetaminop he (no information en/Hydrocod information 13 d tablets by n/H ydrocodon phone) (6 one Bitart mouth every e Bitart sources.) (Lortab four to six (Lortab 5-500 hours as 5-500 Tablet) 1 needed, then Tablet) 1 Each take 1-1 Each Tablet, Tablet, 1 - tablets by 1 - 2 Each 2 Each Oral mouth as Oral Q 4 - 6 needed Hr Prn Discontinued no adalimumab Tumor 09-10-20 Complete no Adalimumab no information Necrosis 18 d information Discontinue d name (3 Factor 40 (no sources.) Marissa SUBCUTANEOUS phone) Every 2 Weeks September 10, 2018 09-10-2018 Completed no Adalimum (no inform ab phone) ation (Humira Pen) 40 Mg/0.4 Ml Pen.ij.k it, 40 Mg Subcutan eous Every 2 Weeks Disconti nued no Adalimumab no 09-10-20 Complete no Adalimumab (no information (Humira information 18 d information (Humir a Pen) phone) (2 Pen) 40 40 Mg/0.4 Ml sources.) Mg/0.4 Ml Pen.ij.kit, Pen.ij.kit, 40 Mg 40 Mg Subcutaneous Subcutaneou Every 2 s Weeks Discontinued amiodarone amiodarone Antiarrhyth 200 mg 09-10-20 Complete no Amiodarone no hydrochlori francine 18 - d information Hcl na me de 200 mg 10-10-20 Discontinued (no oral tablet 18 200 ORAL phone) (6 Twice A Day sources.) 60 30 September 10, 2018 8:11pm October 10, 2018 aspirin 81 aspirin Platelet 81 mg 09-10-20 Complete no Aspi rin no mg delayed Aggregation 18 - d information Discontin ued name release Inhibitor, 10-10-20 81 ORAL (no oral tablet Nonsteroida 18 Daily 30 30 phone) (13 l August sources.) Anti-inflam 2017 matory Drug 8:11pm October 10, 2018 81 mg 09-05-2018 Completed no Aspirin no name inform Disconti (no ation nued 81 phone) ORAL Daily September 05, 2018 atorvastati atorvastati HMG-CoA 09-10-20 Complete no Atorvas tatin no n 40 mg n Reductase 18 - d information Calcium name oral tablet Inhibitor 10-10-20 Discontinued (no (6 18 40 ORAL phone) sources.) Bedtime 30 September 10, 2018 8:11pm October 10, 2018 40 mg 09-10-2018 Completed take 1 Atorvast Ирина E - tablet atin Hines 10-10-2018 by Calcium (no mouth (Lipitor phone) at ) 40 Mg bedtim Tablet e 40 Mg ORAL Bedtime 30 Days 30 Tab 09/10/18 betamethaso betamethaso Corticoster 0.5 no no Betameth ason no ne 0.5 ne oid mg/mL informat information e name mg/ml Translation ion Dipropionate (no topical s: [ Active phone) cream (13 Betamethaso TOPICAL sources.) ne 0.5 Twice A Day MG/ML Topical Cream] 0.5 mg/mL 09-05-2018 Completed no Betameth no name inform asone/Pr (no ation opylene phone) Glyc Disconti nued 1 TOPICAL Twice A Day September 05, 2018 7.5 mg/mL Completed no Betameth (no inform asone phone) ation Dipropio sushil 15 Gm Cream..g . TOPICAL Twice A Day clopidogrel clopidogrel P2Y12 75 mg 09-10-20 Complete no C lopidogrel no 75 mg oral Platelet 18 - d information Bisulfate n awais tablet (6 Inhibitor 10-10-20 Discontinued (no sources.) 18 75 ORAL phone) Daily September 10, 2018 8:11pm October 10, 2018 cyclobenzap cyclobenzap Muscle 08-29-20 Complete no Cycloben zapr no rine rine Relaxant 19 - d information ine Hcl name hydrochlori 08-29-20 Discontinued (no de 10 mg - 10 ORAL phone) oral tablet 08-29-20 Every 8HRS (1 source.) August 29, 2019 7:07pm (One-Time) fexofenadin fexofenadin Histamine-1 60 mg no no Fexofena dine no e e Receptor informat information Hcl Active na me hydrochlori Antagonist ion 60 ORAL (no de 60 mg Twice A Day phone) oral tablet (6 sources.) no folic acid no no no Folic Acid no information information informat information Active 1 name (7 ion ORAL Daily (no sources.) phone) 1 mg Completed take 1 Folic (no tablet Acid 1 phone) by Mg mouth Tablet 1 once Mg ORAL daily Daily gentamicin Gentamicin no 1 no no Gentamicin no 1 mg/ml information mg/mL informat information Sulfate nam e topical ion Active (no cream (5 TOPICAL phone) sources.) Twice A Day no gentamicin no 08-26-20 Complete no Gentamicin no information sulfate information 18 d information Cream name (8 (skilled nursing) Discontinued (no sources.) Translation 1 TOPICAL phone) s: [ Four Times Gentamicin Daily 1 MG/ML August 26 Topical 2017 Cream] 15 mg/mL Completed no Gentamic (no inform in phone) ation Sulfate 15 Gm Cream..g . TOPICAL Twice A Day 1 g 08-26-2018 Completed no Gentamic (no inform in Cream phone) ation , 1 Gm Topical Four Times Daily Disconti nued lisinopril lisinopril Angiotensin 10 mg 09-10-20 Complete no Lisinopril no 10 mg oral Converting 18 - d information Discontinu ed name tablet (6 Enzyme 10-10-20 10 ORAL (no sources.) Inhibitor 18 Daily 30 30 phone) September 10, 2018 8:11pm October 10, 2018 methotrexat methotrexat Folate 10 mg 09-10-20 Complete no M ethotrexate no e 2.5 mg e Analog 18 d information Sodium name oral tablet Metabolic Discontinued (no (7 Inhibitor 10 ORAL phone) sources.) Weekly September 10, 2018 4 TABLETS EVERY 7DAYS 2.5 mg 09-10-2018 Completed no Methotre (no inform xate phone) ation Sodium (Methotr exate) 2.5 Mg Tablet, 10 Mg Oral Weekly Disconti nued Methylpredn methylPREDN Corticoster 08-29-20 Complete no Met hylpredni no isolone (1 ISolone oid 19 - d information solone name source.) 08-29-20 Discontinued (no 19 - 4 ORAL As phone) 08-29-20 Directed 1 August 29, 2019 7:07pm (One-Time) 24 hr metoprolol beta-Adrene 25 mg 09-10-20 Complete no Me toprolol no metoprolol rgic 18 - d information Succinate na me succinate Marissa 10-10-20 Discontinued (no 25 mg 18 25 ORAL phone) extended Daily 30 30 release August oral tablet 2017 (6 8:11pm sources.) October 10, 2018 nystatin nystatin Polyene [id number] no no Nystatin no [id number] Antifungal [IU]/m informat information Active name unt/ml L ion TOPICAL (no topical Twice A Day phone) cream (13 sources.) [id number] 08-26-2018 Completed no Nystatin no name [IU]/mL inform Disconti (no ation nued 15 phone) TOPICAL Three Times A Day August 26, 2018 [id number] 08-26-2018 Completed no Nystatin (no [IU]/mL inform 15 Gm phone) ation Cream..g ., 15 Gm Topical Three Times A Day Disconti nued [id number] Completed no Nystatin (no [IU]/mL inform 15 Gm phone) ation Cream..g . TOPICAL Twice A Day no Eleva 3 no 09-05-20 Complete no Eleva 3 no information Polyunsat information 18 d information Poly unsat name (1 source.) Fatty Acids Fatty Acids (no Discontinued phone) 1000 ORAL Daily September 05, 2018 no Eleva 3 no 1000 Complete take 1 Eleva 3 (no information Polyunsat information mg d capsule by Polyun sat phone) (1 source.) Fatty Acids mouth once Fatty Acids (Fish Oil daily, then (Fish Oil 1,000 Mg take 1 1,000 Mg Capsule) capsule by Capsule) 1,000 Mg mouth 1,000 Mg Cap Cap 1,000 Mg ORAL Daily no Eleva 3 no 09-05-20 Complete take 3 Eleva 3 (no information Polyunsat information 18 d capsules by Poly unsat phone) (5 Fatty Acids mouth once Fatty Acids sources.) (Fish Oil daily (Fish Oil 1,000 Mg 1,000 Mg Capsule) Capsule) 1,000 Mg 1,000 Mg Cap, 1000 Cap, 1000 Mg Mg Oral Oral Daily Discontinued traMADol traMADol Opioid 08-29-20 Complete no Tramadol Hcl no hydrochlori Translation Agonist 19 - d information Discon tinued name de 50 mg s: [ 09-01-20 50 ORAL (no oral tablet Tramadol 19 Every 4HRS phone) (7 Hcl] as needed sources.) for Pain-Moderat e August 29, 2019 7:07pm September 01, 2019 50 mg 09-10-2018 Completed no Tramadol no name - inform Hcl (no 09-15-2018 ation Disconti phone) nued 50 ORAL Three Times A Day as needed for Pain-Mod erate 15 5 September 10, 2018 8:11pm September 15, 2018 Problems Active Problems Problem Normalized Date of Normalized Normalized Provider Fac ility Classification Problem(s) Problem Problem Problem Sta tus Onset/Resoluti Duration on Other Abdominal or Episodic Active WALTER BOB Not Shannon ilable gastrointestin pelvic (40569) al disorders swelling, (2 sources.) mass, or lump, unspecified site Abdominal pain Abdominal Episodic Active QUIANA Not Shannon ilable (10 sources.) pain, GELLENDER , DO (41573) unspecified site Translations: [ EPIGASTRIC PAIN, LEFT LOWER QUADRANT PAIN] Other Abnormal Episodic Active POST [facility] Via screening for electrocardiog MD Alexandra PINA suspected zachariah [ECG] Hospital - conditions [EKG] [place] (not mental (66721) disorders or infectious disease) (18 sources.) Residual Acquired Episodic Active ИРИНА HINES [facility] Via codes; absence of MD [facility] unclassified other Hospital - (5 sources.) specified [place] parts of (98022) digestive tract Deficiency and Anemia, Episodic Active QUIANA Not Avai lable other anemia unspecified GELLENDER , DO (88169) (3 sources.) Deficiency and Anemia, Episodic Active ИРИНА HINES [facility] Via other anemia unspecified MD [facility] (8 sources.) Hospital - [place] (44299) 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, MD Alexandra PINA condition of unspecified Hospital - skin (20 [place] sources.) (65679) Cardiac Atrial 01-12-2020 - Chronic Active ИРИНА HINES , Not Available dysrhythmias fibrillation (94506) (23 sources.) and flutter Translations: [ PAROXYSMAL ATRIAL FIBRILLATION, Transient atrial fibrillation or flutter, UNSPECIFIED ATRIAL FIBRILLATION] Other Attention to Chronic Active no name [facility] Via gastrointestin colostomy Alexandra al disorders Translations: Hospital - (1 source.) [ PERITONEAL [place] ADHESIONS-POST (84848) -OP/INF] Other Attention to Chronic Active SUSU SINGLETON Not Available gastrointestin colostomy MD (30553) al disorders (2 sources.) Other Body mass Chronic Active POST [facility] Via nutritional; index (BMI) MD Alexandra PINA endocrine; and 34.0-34.9, Hospital - metabolic adult [place] disorders (4 (22330) sources.) Other Body mass Chronic Active ИРИНА HNIES [facility] Via nutritional; index (BMI) MD [facility] endocrine; and 35.0-35.9, Hospital - metabolic adult [place] disorders (8 (09461) sources.) Spondylosis; Cervicalgia Episodic Active ИРИНА HINES [facility] Via intervertebral Translations: MD [facility] disc [ PAIN IN Hospital - disorders; THORACIC [place] other back SPINE, LOW (93051) problems (16 BACK PAIN, sources.) CERVICALGIA] Nonspecific Chest pain, Episodic Active MD SILVANA Not Av ailable chest pain (20 unspecified (24078) sources.) Translations: [ OTHER CHEST PAIN, PRECORDIAL PAIN, Chest pain] Complication Colostomy and Chronic Active QUIANA Not A vailable of device; enterostomy GELLENDER , DO (65701) implant or complication, graft (3 unspecified sources.) Other Colostomy Chronic Active SUSU SINGLETON Not Shannon ilable gastrointestin status , (09309) al disorders (3 sources.) Other diseases Compression of Episodic Active SUSU JACK S Not Available of veins and vein , (41900) lymphatics (3 sources.) Other Constipation, Episodic Active QUIANA Not Avai lable gastrointestin unspecified GELLENDER , DO (10102) al disorders Translations: (5 sources.) [ ABDOMINAL/PELV IC SWELLING,MASS/ LUMP UNSP] Other lower Cough Episodic Active JAMAR COLTHARP [facility] Via respiratory , DO Alexandra disease (15 Hospital - sources.) [place] (54010) Other lower Cough Episodic Active AISSATOU KULWINDER Via Chri sti respiratory [address] Hospital disease (7 [place] sources.) (80354) Diverticulosis Diverticulosis Chronic Active QUIANA No t Available and of colon GELLENDER , DO (13447) diverticulitis (without (9 sources.) mention of hemorrhage) Translations: [ DIVERTICULITIS COLON (W/O MENT OF HEMORR] Conditions Dizziness and Episodic Active MD SILVANA VC V ia associated giddiness Alexandra with dizziness Hospital - or vertigo (8 [place] sources.) (54804) Other Encounter for Episodic Active SUSU SINGLETON Not Available aftercare (7 change or , (15562) sources.) removal of surgical wound dressing Residual Encounter for Episodic Active ANTONIO DESIR Via codes; other , MD [facility] unclassified specified Hospital - (6 sources.) prophylactic [place] measures (91772) Other Encounter for Episodic Active ИРИНА HINES , Not Available aftercare (23 surgical (12053) sources.) aftercare following surgery on the circulatory system Residual Family history Episodic Active MD SILVANA Not A vailable codes; of ischemic (37975) unclassified heart disease (22 sources.) and other diseases of the circulatory system Translations: [ INSOMNIA, UNSPECIFIED, ACQUIRED ABSENCE OF OTHER SPECIFIED PART] Essential Hypertensive Chronic Active JUSTIN URIARTE V ia hypertension disorder MD Morris (19 sources.) Translations: Hospital - [ ESSENTIAL [place] (PRIMARY) (75921) HYPERTENSION] Hypertension Hypertensive 01-12-2020 - Chronic Active MUHAMMA D [facility] Via with heart disease MD Alexandra PINA complications with heart Hospital - and secondary failure [place] hypertension (89803) (1 source.) Other Hypocalcemia Chronic Active JUSTIN URIARTE V ia nutritional; MD [facility] endocrine; and Hospital - metabolic [place] disorders (8 (73579) sources.) Fluid and Hypopotassemia Episodic Active SUSURUSLAN RICEKINS No t Available electrolyte , (27064) disorders (4 sources.) Residual Insomnia, Episodic Active JUSTIN URIARTE Via codes; unspecified MD [facility] unclassified Hospital - (2 sources.) [place] (55197) Other intermodal customer service Episodic Active ИРИНА HINES [facility] Via aftercare (11 (current) use MD Morris sources.) of Hospital - antithrombotic [place] s/antiplatelet (34818) s Other intermodal customer service Episodic Active POST [facility] Via aftercare (7 (current) use MD Alexandra PINA sources.) of aspirin [facility] (51175) Other Loss of weight Episodic Active QUIANA Not Shannon ilable nutritional; DO MUKUND (95806) endocrine; and metabolic disorders (4 sources.) Sprains and Low back Episodic Active VASYL PACHECO DO [facility] Vi a strains (4 strain Alexandra sources.) Translations: Hospital - [ STRAIN OF [place] MUSCLE, FASCIA (01196) AND TENDON OF L] Other Morbid Chronic Active POST [facility] Via nutritional; (severe) MD Alexandra PINA endocrine; and obesity due to Hospital - metabolic excess [place] disorders (8 calories (99096) sources.) Other Obesity Chronic Active AISSATOU KULWINDER Via Azael brynn nutritional; 94307 Hospital endocrine; and [place] metabolic (12087) disorders (7 sources.) Other Obesity, Chronic Active MD SILVANA Not Availab le nutritional; unspecified (42752) endocrine; and metabolic disorders (22 sources.) Occlusion or Occlusion and Chronic Active POST [facility] 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 PINA precerebral bilateral Hospital - arteries (4 carotid [place] sources.) arteries (23927) Other Other Episodic Active ИРИНА HINES , [facility] Via gastrointestin constipation MD Morris al disorders Hospital - (11 sources.) [place] () Coronary Other forms of 01-12-2020 - Chronic Active CAROLINE CHRISTEN EH , [facility] Via atherosclerosi angina MD Alexandra martin and other pectoris Hospital - heart disease Translations: [place] (21 sources.) [ ATHSCL HEART (16952) DISEASE OF [place] CORONARY , ATHSCL HEART DISEASE OF [place] COR ART W] Other and Other 01-12-2020 - Chronic Active POST [facility] Via ill-defined ill-defined MD Alexandra PINA heart disease heart diseases Hospital - (1 source.) [place] (44248) Other Other long Episodic Active POST [facility] Via aftercare (4 term (current) MD Alexandra PINA sources.) drug therapy Hospital [facility] (81883) Malaise and Other malaise Episodic Active ИРИНА HINES , [facility] Via fatigue (8 MD [facility] sources.) Hospital - [place] (26767) Other upper Other seasonal Chronic Active ИРИНА HINES , V [facility] Via respiratory allergic MD [facility] disease (8 rhinitis Hospital - sources.) [place] () Unclassified Other Episodic Active ИРИНА HINES , [facility] Vi a (2 sources.) specified MD [facility] disorders of Hospital - eye and adnexa [place] (68584) Residual Other Episodic Active AISSATOU KULWINDER , [facility] Via codes; specified MD [facility] unclassified postprocedural Hospital - (2 sources.) states [place] (62992) External cause Overexertion Episodic Active VASYL PACHECO , DO H Via codes: from prolonged Alexandra Natural/enviro static or Hospital - nment (3 awkward [place] sources.) postures, (28631) initial encounter Other Peritoneal Episodic Active SUSU SINGLETON Not Av ailable gastrointestin MD pino (16121) al disorders (postoperative (2 sources.) ) (postinfection ) Screening and Personal Episodic Active ИРИНА HINES [facility] V ia history of history of MD [facility] mental [facility] nicotine Hospital - and substance dependence [place] abuse codes (58566) (15 sources.) Other lower Pleurodynia Episodic Active AISSATOU MIRAMONTES [facility] Via respiratory Alexandra disease (6 Hospital - sources.) [place] (49686) Other upper Postnasal drip Episodic Active AISSATOU MIRAMONTES Vi a [facility] respiratory [address]329 Hospital infections (7 [place] sources.) (08791) Medical Pre-procedural Episodic Active no name [facility] Via examination/ev laboratory Alexandra aluation (1 examination Hospital - source.) [place] (25858) Coronary Presence of no information Active Trina URIARTE ot Available atherosclerosi aortocoronary (96713) s and other bypass graft heart disease Translations: (16 sources.) [ ATHSCL HEART DISEASE OF [place] COR ART W, ATHSCL HEART DISEASE OF [place] CORONARY ] Coronary Presence of Episodic Active ANTONIO DESIR Not Av ailable atherosclerosi aortocoronaMD adi (87480) s and other bypass graft heart disease Translations: (22 sources.) [ Status post coronary artery bypass graft] Osteoarthritis Primary 01-12-2020 - Chronic Active MD SILVANA Not Available (24 sources.) osteoarthritis (73316) , unspecified site Translations: [ UNSPECIFIED OSTEOARTHRITIS , UNSPECIFIED , PRIMARY OSTEOARTHRITIS , LEFT HAND, PRIMARY OSTEOARTHRITIS , RIGHT HAND, Inflammatory arthritis, PRIMARY OSTEOARTHRITIS , RIGHT HAND] Other Psoriatic Chronic Active AISSATOU MIRAMONTES [facility] Via inflammatory arthritis [address] [facility] condition of Hospital skin (1 (36767) source.) Disorders of Pure 01-12-2020 - Chronic Active SUSU ARMSTRONG INS Not Available lipid MD brian (75219) metabolism (17 [place] sources.) Translations: [ HYPERLIPIDEMIA NEC/NOS, HYPERLIPIDEMIA , UNSPECIFIED] Immunizations Screening Episodic Active SUSU SINGLETON Not Available and screening MD ilda (35807) for infectious for other disease (3 specified sources.) bacterial and spirochetal diseases Other Seborrheic Episodic Active ИРИНА HINES , [facility] Via inflammatory dermatitisMD [facility] condition of unspecified Hospital - skin (2 [place] sources.) (67530) Other lower Shortness of Episodic Active POST [facility] Via respiratory breath MD Alexandra PINA disease (22 Hospital - sources.) [place] (31506) Other diseases Unspecified Episodic Active QUIANA Not A vailable of kidney and disorder of GELLENDER , DO (09313) ureters (4 kidney and sources.) ureter Hemorrhoids (8 Unspecified Episodic Active ИРИНА HINES , V [facility] Via sources.) hemorrhoids [facility] (07266) Intestinal Unspecified Episodic Active QUIANA Not Avail able obstruction intestinal GELLENDER , DO (96377) without hernia obstruction (7 sources.) Translations: [ INTESTINAL OBSTRUCT NEC] Nausea and Vomiting alone Episodic Active QUIANA Not Av ailable vomiting (4 GELLENDER , DO (15056) sources.) Unclassified no information no information Active AISSATOU STEWA RT Via Alexandra ([address] sources[address] [place] [address] (15745) Past or Other Problems Problem Normalized Date of Normalized Normalized Provider Fac ility Classification Problem(s) Problem Problem Problem Sta tus Onset/Resoluti Duration on Residual Encounter for no information no information ANTONIO Lopez EYER [facility] Via codes; other , MD [facility] unclassified specified Hospital - (1 source.) prophylactic [place] measures (15801) Influenza (1 Influenza no information no information AISSATOU STEWA RT [facility] Via source.) [address] [place] [address] (17695) Unclassified OTHER no information no information ИРИНА HINES , Not Available (3 sources.) SPECIFIED MD (15200) DISORDERS OF EYE AND ADN Unclassified Other no information no information ИРИНА HINES , Not Available (3 sources.) specified MD (76085) disorders of eye and adnexa Residual Other no information no information AISSATOU MIRAMONTES , Not Available codes; specified (54461) unclassified postprocedural (4 sources.) states Other Seborrheic no information no information ИРИНА HINES , Not Available inflammatory dermatitisMD (98464) condition of unspecified skin (9 sources.) Unclassified no information no information no information AISSATOU MIRAMONTES Via Alexandra (1 source.) [address] [place] [address] (45795) Procedures Procedure Normalized Procedure Procedure Result Performer Facility Date 01-31-2019 Cardiac event no information Jessica PINA Ascen latasha [facility] (79482) 11-15-2018 Cardiac event no information Jessica PINA Ascen lat[facility] Via [facility] (55503) 08-29-2019 CT of lumbar spine no information no name (no phone ) [facility] Via [facility] without contrast [facility] (63651) 08-15-2018 Echocardiography no information Jessica PINA Vi a [facility] (91408) 08-15-2018 - 08-15-2018 Open and other no information no name (no phone) Not Availab le (98067) sigmoidectomy 08-22-2018 Radionuclide no information Jessica PINA Via [facility] - myocardial perfusion [place] (0000 0) 08-22-2018 study - 08-22-2018 NEGATED SM-TO-SM BOWEL ANASTOM no information no name (no p luis a) [facility] Via [facility] (51382) Temporary colostomy no information no name (no phone) Not Av ailable (82724) VENOUS CATHETERIZATION no information no name (no phone) Not Available (53245) NEC Immunizations Normalized Immunization Date Notes Care Provider Facili ty Immunization NEGATED: Highlighted 09-04-2018 - no information AISSATOU MIRAMONTES [address] [facility] row has not 09-04-2018 [place] (35905) occurred! influenza, injectable,quadrival ent, preservative free, pediatric NEGATED: Highlighted 08-26-2018 - no information AISSATOU KULWINDER [address] [facility] row has not 08-26-2018 [place] (94236) occurred! influenza, injectable,quadrival ent, preservative free, pediatric no information 08-29-2019 no information AISSATOU MIRAMONTES [address] [address] [facility] (99879) Results Test Name Value Interpretation Reference Range Date Time Fa cility (Normalized) (Normalized) (Medline Reference) venous blood hemoglobin measurement (mass/volume) on 2018-09-06 Hemoglobin mass 8.4 g/dL (L) 12.1 - 17.2 g/dL Via [facility] (Bld) [facility] ([id number]) serum or plasma urea nitrogen/creatin ine mass ratio on 2018-09-06 Urea 18 mg/mg (no code) 6 - 22 mg/mg Via [facility] nitrogen/Creatin [facility] ine mass ratio [place] ([id number]) serum or plasma urea nitrogen measurement (mass/volume) on 2018-09-06 Urea nitrogen 17 mg/dL (no code) 7 - 20 mg/dL Via [facility] ([id number]) serum or plasma sodium measurement (moles/volume) on 2018-09-06 Sodium molar 136 mmol/L (no code) 135 - 145 mmol/L Via [facility] ([id number]) serum or plasma potassium measurement (moles/volume) on 2018-09-06 Potassium molar 3.9 mmol/L (no code) 3.7 - 5.2 mmol/L Via [facility] ([id number]) serum or plasma glucose measurement (mass/volume) on 2018-09-06 Glucose mass 92 mg/dL (no code) 60 - 125 mg/dL Via [facility] ([id number]) serum or plasma creatinine measurement with calculation of estimated glomerular filtration rate on 2018-09-06 GFR/1.73 sq M no information (no code) [facility] ([id number][facility] (S/P/Bld) serum or plasma creatinine measurement (mass/volume) on 2018-09-06 Creatinine mass 0.93 mg/dL (no code) Via [facility] ([id number]) serum or plasma chloride measurement (moles/volume) on 2018-09-06 Chloride molar 105 mmol/L (no code) 95 - 106 mmol/L Via [facility] ([id number]) serum or plasma calcium measurement (mass/volume) on 2018-09-06 Calcium mass 8.4 mg/dL (L) 8.5 - 10.2 mg/dL Via [facility] ([id number]) serum or plasma anion gap determination (moles/volume) on 2018-09-06 Anion gap 3 12 mmol/L (no code) 3 - 11 mmol/L Via [facility] ([id number]) carbon dioxide on 2018-09-06 CO2 molar conc 19 mmol/L (L) 23 - 29 mmol/L Via [facility] ([id number]) blood neutrophils automated count (number/volume) on 2018-09-06 Neutrophils Auto 5.1 10*3/uL (no code) 1.7 - 7 10*3/uL Via [facility] #/vol (Bld) [facility] ([id number]) blood monocytes/100 leukocytes on 2018-09-06 Monocytes/100 11 % (no code) 2 - 8 % Via [facility] WBC Auto (Bld) [facility] ([id number]) blood monocytes automated count (number/volume) on 2018-09-06 Monocytes Auto 0.9 10*3/uL (no code) 0.3 - 0.9 Via [place] #/vol (Bld) 10*3/uL [facility] ([id number]) blood lymphocytes automated count (number/volume) on 2018-09-06 Lymphocytes Auto 1.6 10*3/uL (no code) 0.9 - 2.9 Via [facility] ti #/vol (Bld) 10*3/uL [facility] ([id number]) blood leukocytes automated count (number/volume) on 2018-09-06 WBC Auto #/vol 8.8 10*3/uL (no code) 3.5 - 10.5 Via [facility] (Bld) 10*3/uL [facility] ([id number]) blood hematocrit (volume fraction) on 2018-09-06 Hematocrit Auto 26 % (L) 36.1 - 50.3 % Via [facility] isti Volume Fraction [facility] ([facility]) [place] ([id number]) blood erythrocytes automated count (number/volume) on 2018-09-06 RBC Auto #/vol 2.57 10*6/uL (L) 4.2 - 6.1 Via [facility] i (Bld) 10*6/uL [facility] ([id number]) automated erythrocyte mean corpuscular volume on 2018-09-06 MCV Auto Entitic 98 fL (no code) 80 - 100 fL Via [facility] sti volume (RBC) [facility] ([id number]) automated erythrocyte mean corpuscular hemoglobin concentration measurement (mass/volume) on 2018-09-06 MCHC Auto mass 34 g/dL (no code) 32 - 36 g/dL Via [facility] ti conc (RBC) [facility] ([id number]) automated erythrocyte mean corpuscular hemoglobin (mass per erythrocyte) on 2018-09-06 MCH Auto Ent[place] 33 pg (no code) 27 - 31 pg Via [facility] ti mass (RBC) [facility] ([id number]) automated erythrocyte distribution width ratio on 2018-09-06 Erythrocyte 15.5 % (H) 11.6 - 14.6 % Via [facility] distribution Hospital width Auto Ratio [place] (RBC) ([id number]) automated eosinophil count on 2018-09-06 Eosinophils Auto 0.3 10*3/uL (no code) 0.05 - 0.5 Via [facility] ti #/vol (Bld) 10*3/uL [facility] ([id number]) automated blood platelet mean volume measurement on 2018-09-06 Platelet mean 9.0 fL (no code) 7.2 - 11.7 fL Via [facility] ti volume Auto [facility] Entitic volume [place] (Bld) ([id number]) automated blood platelet count (count/volume) on 2018-09-06 Platelets Auto 140 10*3/uL (no code) 150 - 450 Via [place] #/vol (Bld) 10*3/uL [facility] ([id number]) automated blood neutrophils/100 leukocytes on 2018-09-06 Neutrophils/100 65 % (no code) 40 - 60 % Via [facility] i WBC Auto (Bld) [facility] ([id number]) automated blood lymphocytes/100 leukocytes on 2018-09-06 Lymphocytes/100 20 % (no code) 20 - 40 % Via [facility] i WBC Auto (Bld) [facility] ([id number]) automated blood eosinophils/100 leukocytes on 2018-09-06 Eosinophils/100 4 % (no code) 1 - 4 % Via [facility] i WBC Auto (Bld) [facility] ([id number]) automated blood basophils/100 leukocytes on 2018-09-06 Basophils/100 0 % (no code) 0.5 - 1 % Via [place] WBC Auto (Bld) [facility] ([id number]) automated blood basophil count (count/volume) on 2018-09-06 Basophils Auto 0.0 10*3/uL (no code) 0 - 0.3 10*3/uL Via [facility] #/vol (Bld) [facility] ([id number]) venous blood hemoglobin measurement (mass/volume) on 2018-08-26 Hemoglobin mass 12.7 g/dL (L) 12.1 - 17.2 g/dL Via [place] conc (Bld) [facility] ([id number]) serum or plasma urea nitrogen/creatin ine mass ratio on 2018-08-26 Urea 16 mg/mg (no code) 6 - 22 mg/mg Via [facility] nitrogen/Creatin [facility] ine mass ratio [place] ([id number]) serum or plasma urea nitrogen measurement (mass/volume) on 2018-08-26 Urea nitrogen 14 mg/dL (no code) 7 - 20 mg/dL Via [facility] ([id number]) serum or plasma total bilirubin measurement (mass/volume) on 2018-08-26 Bilirubin mass 0.8 mg/dL (no code) 0.1 - 1.2 mg/dL Via [facility] ([id number]) serum or plasma sodium measurement (moles/volume) on 2018-08-26 Sodium molar 137 mmol/L (no code) 135 - 145 mmol/L Via [facility] () serum or plasma protein measurement (mass/volume) on 2018-08-26 Protein mass 7.4 g/dL (no code) 6.4 - 8.3 g/dL Via [facility] ([id number]) serum or plasma potassium measurement (moles/volume) on 2018-08-26 Potassium molar 3.9 mmol/L (no code) 3.7 - 5.2 mmol/L Via [facility] ([id number]) serum or plasma glucose measurement (mass/volume) on 2018-08-26 Glucose mass 87 mg/dL (no code) 60 - 125 mg/dL Via [facility] ([id number]) serum or plasma creatinine measurement with calculation of estimated glomerular filtration rate on 2018-08-26 GFR/1.73 sq M no information (no code) [facility] non-blacks MDRD [place] vol rate/area () (S/P/Bld) serum or plasma creatinine measurement (mass/volume) on 2018-08-26 Creatinine mass 0.87 mg/dL (no code) Via [facility] ([id number]) serum or plasma chloride measurement (moles/volume) on 2018-08-26 Chloride molar 105 mmol/L (no code) 95 - 106 mmol/L Via [facility] ([id number]) serum or plasma calcium measurement (mass/volume) on 2018-08-26 Calcium mass 9.1 mg/dL (no code) 8.5 - 10.2 mg/dL Via [facility] ([id number]) serum or plasma aspartate aminotransferase measurement (enzymatic activity/volume) on 2018-08-26 AST enzyme 20 U/L (no code) 10 - 34 U/L Via [facility] act/[facility] ([id number]) serum or plasma anion gap determination (moles/volume) on 2018-08-26 Anion gap 3 10 mmol/L (no code) 3 - 11 mmol/L Via [facility] ([id number]) serum or plasma alkaline phosphatase measurement (enzymatic activity/volume) on 2018-08-26 ALP enzyme 68 U/L (no code) 44 - 147 U/L Via [facility] act/[facility] ([id number]) serum or plasma albumin measurement (mass/volume) on 2018-08-26 Albumin mass 3.8 g/dL (no code) 3.4 - 5.4 g/dL Via [facility] ([id number]) serum or plasma alanine aminotransferase measurement (enzymatic activity/volume) on 2018-08-26 ALT enzyme 23 U/L (no code) 4 - 40 U/L Via [facility] ([id number]) prothrombin time (pt) in platelet poor plasma by coagulation assay on 2018-08-26 Prothrombin time 13.7 s (no code) 9.4 - 12.5 s Via [facility] (PT) Coag time Hospital ([facility]) [place] ([id number]) methicillin resistant staphylococcus aureus (mrsa) screening culture on 2018-08-26 MRSA DNA MRSA not (no code) Via [facility] ALBA+probe [facility] (Unsp spec) [place] ([id number]) inr in platelet poor plasma or blood by coagulation assay on 2018-08-26 INR Coag RelTime 1.0 (no code) Via [facility] (Platelet poor Hospital plasma or blood) [place] ([id number]) carbon dioxide on 2018-08-26 CO2 molar conc 22 mmol/L (no code) 23 - 29 mmol/L Via [facility] ([id number]) calcium measurement corrected for albumin on 2018-08-26 Calcium mass 9.3 mg/dL (no code) 8.5 - 10.2 mg/dL Via [facility] ([id number]) blood leukocytes automated count (number/volume) on 2018-08-26 WBC Auto #/vol 4.8 10*3/uL (no code) 3.5 - 10.5 Via [place] (Bld) 10*3/uL [facility] ([id number]) blood hematocrit (volume fraction) on 2018-08-26 Hematocrit Auto 36 % (L) 36.1 - 50.3 % Via [facility] (Bld) [place] ([id number]) blood erythrocytes automated count (number/volume) on 2018-08-26 RBC Auto #/vol 3.81 10*6/uL (L) 4.2 - 6.1 Via [facility] i (Bld) 10*6/uL [facility] ([id number]) automated erythrocyte mean corpuscular volume on 2018-08-26 MCV Auto Entitic 94 fL (no code) 80 - 100 fL Via [facility] sti volume (RBC) [facility] ([id number]) automated erythrocyte mean corpuscular hemoglobin concentration measurement (mass/volume) on 2018-08-26 MCHC Auto mass 36 g/dL (no code) 32 - 36 g/dL Via [place] ti conc (RBC) [facility] ([id number]) automated erythrocyte mean corpuscular hemoglobin (mass per erythrocyte) on 2018-08-26 MCH Auto Entitic 33 pg (no code) 27 - 31 pg Via [facility] ti mass (RBC) [facility] ([id number]) automated erythrocyte distribution width ratio on 2018-08-26 Erythrocyte 14.4 % (no code) 11.6 - 14.6 % Via [facility] distribution Hospital width Auto Ratio [place] (RBC) ([id number]) automated blood platelet mean volume measurement on 2018-08-26 Platelet mean 9.7 fL (no code) 7.2 - 11.7 fL Via [facility] ti volume Auto Hospital Entitic volume [place] (Bld) ([id number]) automated blood platelet count (count/volume) on 2018-08-26 Platelets Auto 80 10*3/uL (L) 150 - 450 Via [facility] #/vol (Bld) 10*3/uL [facility] ([id number]) activated partial thromboplastin time (aptt) in platelet poor plasma bycoagulation assay on 2018-08-26 aPTT Coag time 31 s (no code) 25 - 35 s Via [facility] (Bld) [facility] ([id number]) Vital Signs The data below is from unstructured sources Vital Response Date/Time Temperature (Fahrenheit) 97.9 degree s F (97.6 - 99.5) 08/26/2018 1:25pm Temperature (Calculated Celsius) 36. 56909 degrees C (36.4 - 37.5) 08/26/2018 1:25pm Temperature Source Tympanic 08/26/2018 1:25pm Pulse Rate (adult) 63 bpm (60 - 90) 08/26/2018 5:30pm Respiratory Rate 14 bpm (12 - 24) 08/26/2018 5:30pm O2 Sat by Pulse Oximetry 95 % (88 - 100) 08/26/2018 5:30pm Blood Pressure 166/75 mm Hg 08/26/2018 5:30pm Blood Pressure Mean 105 mm Hg (65 - 110) 08/26/2018 5:30pm Pain Numeric Pain Scale 0-No Pain 08/26/2018 5:45pm Height (Feet) 6 feet 06/2018 1:27pm Height (Inches) 0.00 inches 08/26/2018 1:27pm Height (Calculated Centimeters) 182. 629614 cm 08/26/2018 1:27pm Weight (Pounds) 269 pounds 08/26/2018 1:27pm Weight (Ounces) 0.0 oz 1 1:27pm Weight (Calculated Grams) 703876.35 gm 08/26/2018 1:27pm Weight (Calculated Kilograms) 122.01 6349 kilograms 08/26/2018 1:27pm Calculated BMI 36.5 06/2018 1:27pm Weight Measurement Method Standing Scale 08/26/2018 1:27pm Capillary Refill Capillary Refill Less Than 3 Seconds 08/26/2018 5:45pm Vital Response Date/Time Temperature (Fahrenheit) 97.1 degree s F (97.6 - 99.5) 09/11/2018 3:35pm Temperature (Calculated Celsius) 36. 07257 degrees C (36.4 - 37.5) 09/11/2018 6:04am Temperature Source Temporal 09/11/2018 3:35pm Pulse Rate (adult) 81 bpm (60 - 90) 09/11/2018 3:35pm Respiratory Rate 18 bpm (12 - 24) 09/11/2018 3:35pm O2 Sat by Pulse Oximetry 97 % (88 - 100) 09/11/2018 3:35pm Blood Pressure 130/63 mm Hg 09/11/2018 3:35pm Blood Pressure Mean 85 mm Hg (65 - 110) 09/11/2018 6:04am Pain Numeric Pain Scale 0-No Pain 09/11/2018 3:35pm Height (Feet) 6 feet 5:08pm Height (Inches) 0.00 inches 09/04/2018 5:08pm Height (Calculated Centimeters) 182. 453905 cm 09/04/2018 5:08pm Weight (Pounds) 261 pounds 09/04/2018 5:08pm Weight (Ounces) 8.0 oz 1 5:08pm Weight (Calculated Grams) 951166.41 gm 09/04/2018 5:08pm Weight (Calculated Kilograms) 118.61 4406 kilograms 09/04/2018 5:08pm Calculated BMI 35.5 08/19 5:08pm Weight Measurement Method Built in Greendizer e 09/04/2018 5:08pm Capillary Refill Capillary Refill Less Than 3 Seconds 08/26/2018 5:45pm Vital Reading Result Col lection Date/Time Vital Reading Result Col lection Date/Time Interventions No Information Plan of Treatment Normalized Care Care Detail Care Activity Date Care Provider F acility Activity Patient Education no information no information AISASTOU MIRAMONTES [phone] [facility] ([id number]) Patient referral no information no information AISSATOU MIRAMONTES [phone] [facility] ([id number]) Goals Patient Goal Desired Goal no information no information Social History Normalized Code Original Code Date Value no information no information no information Ex-smoker (find ing) Tobacco smoking status Tobacco smoking status no information Ex-smoker (finding) SCIS SCIS no information no information 07-24-2013 Denies Use no information no information 07-24-2013 No no information no information 07-24-2013 Denies no information no information 08-29-2019 Former Smoker no information no information 08-29-2019 Cigarettes no information no information 08-29-2019 Y - CABG Sex Assigned At Sex Assigned At no information M alisson Functional Status The data below is from unstructured sources Query Response Date Dejan rded Patient Orientation Person Place Time Situation September 10, 2018 4:04pm Comprehension Ability Understands Co ncepts September 11, 2018 9:00am No Functional Status information available Mental Status The data below is from unstructured sourcesNo Mental Status Information Available Encounters Encounter Normalized Encounter Encounter Diagnosis Care Provi naa Organization Date Type 08-26-2018 Admission to day no information M SELWYN PINA Wor k no organization name - surgery M (no celina ne) 08-26-2018 SELWYN PINA 07-07-2019 Discharged Recurring no information ANTONIO DESIR Work no organization name - (no phone) 07-17-2019 02-28-2019 Discharged Recurring no information ANTONIO Acosta DESIR Work no organization name - (no phone) 04-23-2019 01-20-2019 Discharged Recurring no information M SELWYN SILVANA Work no organization name - (no phone) 02-14-2019 01-15-2019 Discharged Recurring no information ANTONIO Acosta DESIR Work no organization name - (no phone) 01-20-2019 10-21-2018 Discharged Recurring no information ANTONIO Acosta DESIR Work no organization name - (no phone) 01-20-2019 08-29-2019 Emergency department no information (no phone) As cension [facility] - patient visit [facility] (no phone) 08-29-2019 08-29-2019 Emergency department no information no name (no celina ne) no organization name - patient visit (no phone) 08-29-2019 09-04-2018 Evaluation and Cough ИРИНА HINES Work no o rganization name - management of (no phone ) 09-11-2018 inpatient 09-04-2018 Evaluation and no information no name (no phone) n o organization name - management of (no phone) 09-11-2018 inpatient 09-04-2018 Patient encounter no information no name (no phone) no organization name - (no phone) 09-11-2018 08-26-2018 Patient encounter no information no name (no phone) no organization name - (no phone) 08-26-2018 08-22-2018 Patient encounter no information M SELWYN PINA Wo rk no organization name M (no phone) SELWYN PINA 08-15-2018 Patient encounter no information M SELWYN SHIELDSDIANA Wo rk no organization name M (no phone) SELWYN PINA 07-03-2018 Patient encounter no information no name (no phone) no organization name (no phone) 12-29-2016 Patient encounter no information no name (no phone) no organization name (no phone) 07-31-2013 Patient encounter no information no name (no phone) no organization name (no phone) 07-14-2013 Patient encounter no information no name (no phone) no organization name - (no phone) 07-14-2013 07-09-2013 Patient encounter no information no name (no phone) no organization name (no phone) 06-18-2013 Patient encounter no information no name (no phone) no organization name - (no phone) 06-18-2013 04-09-2013 Patient encounter no information no name (no phone) no organization name (no phone) 12-23-2019 Patient encounter no information POST[facility]ils OR[facility] [address] [facility] negrete MD (no phone) [facility] (no phone) 11-20-2019 Patient encounter no information no name (no phone) no organization name procedure (no phone) 08-29-2019 Patient encounter no information no name (no phone) no organization name procedure (no phone) 07-07-2019 Patient encounter no information no name (no phone) no organization name - procedure (no phone) 07-15-2019 07-04-2019 Patient encounter no information no name (no phone) no organization name procedure (no phone) 07-02-2019 Patient encounter no information no name (no phone) no organization name procedure (no phone) 06-25-2019 Patient encounter no information no name (no phone) no organization name procedure (no phone) 06-23-2019 Patient encounter no information no name (no phone) no organization name procedure (no phone) 06-20-2019 Patient encounter no information no name (no phone) no organization name procedure (no phone) 06-18-2019 Patient encounter no information no name (no phone) no organization name procedure (no phone) 06-16-2019 Patient encounter no information no name (no phone) no organization name procedure (no phone) 05-07-2019 Patient encounter no information no name (no phone) no organization name procedure (no phone) 05-07-2019 Patient encounter no information no name (no phone) no organization name procedure (no phone) 05-02-2019 Patient encounter no information no name (no phone) no organization name procedure (no phone) 04-23-2019 Patient encounter no information no name (no phone) no organization name procedure (no phone) 04-02-2019 Patient encounter no information no name (no phone) no organization name - procedure (no phone) 04-30-2019 04-02-2019 Patient encounter no information no name (no phone) no organization name - procedure (no phone) 04-29-2019 03-31-2019 Patient encounter no information no name (no phone) no organization name procedure (no phone) 03-13-2019 Patient encounter no information no name (no phone) no organization name procedure (no phone) 03-13-2019 Patient encounter no information no name (no phone) no organization name procedure (no phone) 02-28-2019 Patient encounter no information no name (no phone) no organization name - procedure (no phone) 04-22-2019 02-28-2019 Patient encounter no information no name (no phone) no organization name - procedure (no phone) 04-21-2019 02-21-2019 Patient encounter no information no name (no phone) no organization name procedure (no phone) 02-19-2019 Patient encounter no information no name (no phone) no organization name procedure (no phone) 02-14-2019 Patient encounter no information no name (no phone) no organization name procedure (no phone) 02-10-2019 Patient encounter no information no name (no phone) no organization name procedure (no phone) 02-03-2019 Patient encounter no information no name (no phone) no organization name procedure (no phone) 01-31-2019 Patient encounter no information no name (no phone) no organization name procedure (no phone) 01-31-2019 Patient encounter no information no name (no phone) no organization name procedure (no phone) 01-31-2019 Patient encounter no information no name (no phone) no organization name - procedure (no phone) 04-30-2019 01-24-2019 Patient encounter no information no name (no phone) no organization name procedure (no phone) 01-22-2019 Patient encounter no information no name (no phone) no organization name procedure (no phone) 01-20-2019 Patient encounter no information no name (no phone) no organization name - procedure (no phone) 02-13-2019 01-15-2019 Patient encounter no information no name (no phone) no organization name - procedure (no phone) 01-19-2019 01-15-2019 Patient encounter no information no name (no phone) no organization name - procedure (no phone) 01-18-2019 01-13-2019 Patient encounter no information no name (no phone) no organization name procedure (no phone) 01-10-2019 Patient encounter no information no name (no phone) no organization name procedure (no phone) 01-08-2019 Patient encounter no information no name (no phone) no organization name procedure (no phone) 01-06-2019 Patient encounter no information no name (no phone) no organization name procedure (no phone) 01-01-2019 Patient encounter no information no name (no phone) no organization name procedure (no phone) 12-30-2018 Patient encounter no information no name (no phone) no organization name procedure (no phone) 12-25-2018 Patient encounter no information no name (no phone) no organization name procedure (no phone) 12-23-2018 Patient encounter no information no name (no phone) no organization name procedure (no phone) 12-13-2018 Patient encounter no information no name (no phone) no organization name procedure (no phone) 12-12-2018 Patient encounter no information no name (no phone) no organization name procedure (no phone) 12-11-2018 Patient encounter no information no name (no phone) no organization name procedure (no phone) 12-06-2018 Patient encounter no information no name (no phone) no organization name procedure (no phone) 12-04-2018 Patient encounter no information no name (no phone) no organization name procedure (no phone) 12-04-2018 Patient encounter no information no name (no phone) no organization name procedure (no phone) 12-04-2018 Patient encounter no information no name (no phone) no organization name procedure (no phone) 11-30-2018 Patient encounter no information no name (no phone) no organization name procedure (no phone) 11-29-2018 Patient encounter no information no name (no phone) no organization name procedure (no phone) 11-27-2018 Patient encounter no information no name (no phone) no organization name procedure (no phone) 11-25-2018 Patient encounter no information no name (no phone) no organization name procedure (no phone) 11-24-2018 Patient encounter no information no name (no phone) no organization name procedure (no phone) 11-22-2018 Patient encounter no information no name (no phone) no organization name procedure (no phone) 11-15-2018 Patient encounter no information no name (no phone) no organization name procedure (no phone) 11-15-2018 Patient encounter no information no name (no phone) no organization name procedure (no phone) 11-08-2018 Patient encounter no information no name (no phone) no organization name procedure (no phone) 11-04-2018 Patient encounter no information no name (no phone) no organization name procedure (no phone) 10-30-2018 Patient encounter no information no name (no phone) no organization name procedure (no phone) 10-28-2018 Patient encounter no information no name (no phone) no organization name procedure (no phone) 10-21-2018 Patient encounter no information no name (no phone) no organization name procedure (no phone) 08-26-2018 Patient encounter no information no name (no phone) no organization name - procedure (no phone) 08-26-2018 08-22-2018 Patient encounter no information no name (no phone) no organization name procedure (no phone) 08-15-2018 Patient encounter no information no name (no phone) no organization name procedure (no phone) 07-03-2018 Patient encounter no information no name (no phone) no organization name procedure (no phone) 12-29-2016 Patient encounter no information no name (no phone) no organization name procedure (no phone) 04-02-2019 Registered Recurring no information ANTONIO DESIR Work no organization name (no phone) 02-10-2019 Registered Recurring no information ANTONIO DESIR Work no organization name (no phone) 01-31-2019 Registered Recurring no information Jessica PINA Work no organization name (no phone) no information Pre-procedural no name (no phone) no organiza tion name laboratory examination (no phone) Medical Equipment The data below is from unstructured sourcesNo Medical Equipment Information available Payers Normalized Payer Value Private Health Insurance [id number]) Self-pay [id number]) Medicare [id number]) Medicare no information ([id number]) Advance Directives Directive Response Recor ded Date Advance Directives N 03/31 10:31am Health Care Power of Clothing Examiner N 07/24/13 10:31am Organ Donor N 07/24/13 1 0:31am Directive Response Recor ded Date Advance Directives N 8:55am Health Care Power of Clothing Examiner N 07/14/13 8:55am Organ Donor N 07/14/13 8 :55am Directive Response Recor ded Date Advance Directives N 5:45pm Health Care Power of Clothing Examiner N 04/09/13 5:45pm Organ Donor N 04/09/13 5 :45pm Directive Response Recor ded Date Advance Directives N 4:40pm Health Care Power of Clothing Examiner N 07/16/13 4:40pm Organ Donor N 07/16/13 4 :40pm Directive Response Recor ded Date/Time Advance Directives No 1:27pm Health Care Power of Clothing Examiner No 08/26/18 1:27pm Organ Donor No 08/26/18 1:27pm Resuscitation Status Full Code 08/26/18 1:27pm Directive Response Recor ded Date/Time Advance Directives No 5:45pm Health Care Power of Clothing Examiner No 09/04/18 5:45pm Organ Donor No 09/04/18 5:45pm Resuscitation Status Full Code 09/04/18 5:45pm Directive Response Recor ded Date/Time Advance Directives No 5:45pm Health Care Power of Clothing Examiner No 09/04/18 5:45pm Organ Donor No 09/04/18 5:45pm Directive Response Recor ded Date/Time Advance Directives No 10:49am Health Care Power of Clothing Examiner No 03/13/19 10:49am Organ Donor No 03/13/19 10:49am Advance Directive Response Recorded Date/Time Advance Directives No [facility] lil[facility] 2018 6:08pm Health Care Power of Clothing Examiner No August 29, 2019 6:08pm Organ Donor No August 192018 6:08pm Resuscitation Status Full Code August 29, 2019 6:08pm Discharge Instructions No hospital discharge instruction information available.No hospital discharge instruction information available.No hospital discharge instruction information available.Current inpatient/outpatient. Discharge instructions are currently unavailable.Current inpatient/outpatient. Discharge instructions are currently unavailable.No hospital discharge instruction information available. Chief Complaint and Reason for Visit Chief Complaint TOXIC MYOPATHY Reason for Visit S/P CABG (coronary artery bypass graft) Cough Post-nasal drip Psoriatic arthritis Hypertension Atrial fib/flutter, transient Obesity Chief Complaint Back Problems Reason for Visit [id number] Assessments No Assessments Information Available Additional Source Comments This clinical document has been generated using [employer] software that has been certified by the Office of the National Coordinator for Health Information Technology (ONC 15.99.04.3023.Diam.[id number]) and the National Committee for [employer] (NCQA, as an eMeasure certified technology). FOR RECORDS PERTAINING TO PATIENTS WHO ARE OR HAVE BEEN ENROLLED IN A CHEMICAL D EPENDENCY/SUBSTANCE ABUSE PROGRAM, SOME INFORMATION MAY BE OMITTED. This clinica l summary was aggregated from multiple sources. Caution should be exercised in using it in the provision of clinical care. This summary normalizes information from multiple sources, and as a consequence, information in this document may ma terially change the coding, format and clinical context of patient data. In uriel tion, data may be omitted in some cases. CLINICAL DECISIONS SHOULD BE BASED ON T HE PRIMARY CLINICAL RECORDS. [employer] provides no warranty or guara ntee of the accuracy or completeness of information in this document.The followi ng information is based on time limited clinical information
--- OUTSIDE RECORDS SUMMARY | 2020-02-06 12:41 | XMS REPORT | Continuity of Care Document ---
Author Organization Unknown Address Unknown Phone Unavailable Allergies Active Description Code Type Severity Reaction Onset Reported/Identified Relationship to Patient Clinical Status Yes No Known Drug Allergies [id number] Drug Allergy Unknown N/A 04/09/2013 Medications There [...] 07/20/2013 SUSU SINGLETON MD Ot 568.0 PERITONEAL [id number] 07/20/2013 SUSU SINGLETON MD Ot V55.3 ATTEN TO COLOSTOMY 07/24/2013 WALTER BOB RESIDENT CARE ASSOCIATE Ot 789.30 ABDOMINAL/PELVIC SWELLING,MASS/LUMP UNSP 07/24/2013 WALTER BOB APRN Ot V58.31 ENCOUNTER FOR CHANGE OR REMOVAL OF SURGI 07/20/2016 QUIANA DUVAL DO Ot 560.9 INTESTINAL OBSTRUCT NOS 07/20/2016 QUIANA DUVAL DO Ot 564.00 UNSPEC CONSTIPATION 07/20/2016 QUIANA DUVAL DO Ot 593.9 RENAL URETERAL DIS NOS 07/20/2016 GELLENDER DO, QIUANA Peter Ot 783.21 LOSS OF WEIGHT 07/20/2016 [...] 789.00 ABDOMINAL PAIN, UNSPECIFIED SITE 12/29/2016 GELLENDER DOQUIANA Ot 560.9 INTESTINAL OBSTRUCT NOS 12/29/2016 GELLENDER [...] Ot 593.9 RENAL URETERAL DIS NOS 02/17/2017 QUIANA DUVAL DO Ot 783.21 LOSS OF WEIGHT 02/17/2017 QUIANA DUVAL DO Ot 787.03 VOMITING ALONE 02/17/2017 QUIANA DUVAL DO Ot 789.00 ABDOMINAL PAIN, UNSPECIFIED SITE 08/07/2018 Ot 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 08/19/2018 Jessica PINA MD Ot E66 .9 OBESITY, UNSPECIFIED 08/19/2018 Jessica PINA MD Ot M19.90 UNSPECIFIED OSTEOARTHRITIS, UNSPECIFIED 08/19/2018 Jessica PINA MD Ot R06.02 SHORTNESS OF BREATH 08/19/2018 Jessica PINA MD Ot R07 .9 CHEST PAIN, UNSPECIFIED 08/19/2018 Jessica PINA MD Ot R94.31 ABNORMAL ELECTROCARDIOGRAM [ECG] [EKG] 08/20/2018 QUIANA DUVAL DO Ot 560.9 INTESTINAL OBSTRUCT NOS 08/20/2018 QUIANA DUVAL DO Ot 564.00 UNSPEC CONSTIPATION 08/20/2018 QUIANA DUVAL [...] Lopez Ot V74.8 SCREEN-BACTERIAL DIS NEC 08/20/2018 MANI TSAI, SUSU Lopez Ot 276.8 HYPOPOTASSEMIA 08/20/2018 COLTHARP JAMAR WINTERS Ot R05 COUGH 08/20/2018 Ot 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 08/20/2018 SILVANA TSAI, Jessica SAMANO Ot E66 .9 OBESITY, UNSPECIFIED 08/20/2018 Jessica PINA MD Ot M19.90 UNSPECIFIED OSTEOARTHRITIS, UNSPECIFIED 08/20/2018 Jessica PINA MD Ot R06.02 SHORTNESS OF BREATH 08/20/2018 Jessica PINA MD Ot R07 .9 CHEST PAIN, UNSPECIFIED 08/20/2018 Jessica PINA MD Ot R94.31 ABNORMAL ELECTROCARDIOGRAM [ECG] [EKG] 08/20/2018 Ot 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 08/26/2018 Jessica PINA MD Ot E66 .9 OBESITY, UNSPECIFIED 08/26/2018 Jessica PINA MD Ot M19.91 PRIMARY OSTEOARTHRITIS, UNSPECIFIED SITE 08/26/2018 Jessica PINA MD Ot R06.02 SHORTNESS OF BREATH 08/26/2018 Jessica PINA MD Ot R07 .9 CHEST PAIN, UNSPECIFIED 08/26/2018 Jessica PINA MD Ot R94.31 ABNORMAL ELECTROCARDIOGRAM [ECG] [EKG] 08/26/2018 Jessica PINA MD Ot E66.01 MORBID (SEVERE) OBESITY DUE TO EXCESS CA 08/26/2018 Jessica PINA MD Ot I25.10 ATHSCL HEART DISEASE OF [place] CORONARY 08/26/2018 Jessica PINA MD Ot L40.50 [...] MD Ot I25.10 ATHSCL HEART DISEASE OF [place] CORONARY 08/28/2018 Jessica PINA MD Ot L40.50 [...] MD Ot I25.10 ATHSCL HEART DISEASE OF [place] CORONARY 09/01/2018 Jessica PINA MD Ot L40.50 ARTHROPATHIC PSORIASIS, UNSPECIFIED 09/01/2018 Jessica PINA MD Ot R06.02 SHORTNESS OF BREATH 09/01/2018 Jessica PINA MD Ot R07.89 OTHER CHEST PAIN 09/01/2018 Jessica PINA MD Ot Z82.49 FAMILY HX OF ISCHEM HEART DIS AND OTH DI 09/04/2018 Jessica PINA MD Ot E66 .9 OBESITY, UNSPECIFIED 09/04/2018 Jessica PINA MD Ot M19.90 UNSPECIFIED OSTEOARTHRITIS, UNSPECIFIED 09/04/2018 Jessica PINA MD Ot R06.02 SHORTNESS OF BREATH 09/04/2018 Jessica PINA MD Ot R07 .9 CHEST PAIN, UNSPECIFIED 09/04/2018 Jessica PINA MD Ot R94.31 ABNORMAL ELECTROCARDIOGRAM [ECG] [EKG] 09/11/2018 ИРИНА CHERRY MD E Ot D64.9 ANEMIA, UNSPECIFIED 09/11/2018 JO ANN TSAI ИРИНА E Ot E66.9 OBESITY, UNSPECIFIED 09/11/2018 KIZZY CHERRY MDIC E Ot E78.5 HYPERLIPIDEMIA, UNSPECIFIED 09/11/2018 ИРИНА CHERRY MD E Ot E83.5 1 HYPOCALCEMIA 09/11/2018 ИРИНА CHERRY MD E Ot G47.0 0 INSOMNIA, UNSPECIFIED 09/11/2018 KIZZY CHERRY MDIC E Ot H57.8 9 OTHER SPECIFIED DISORDERS OF EYE AND ADN 09/11/2018 ИРИНА CHERRY MD E Ot I10 ESSENTIAL (PRIMARY) HYPERTENSION 09/11/2018 CHERRY MD, ИРИНА E Ot I25.1 19 ATHSCL HEART DISEASE OF [place] COR ART W 09/11/2018 JO ANN TSAI ИРИНА E Ot I48.0 PAROXYSMAL ATRIAL FIBRILLATION 09/11/2018 JO ANN TSAI ИРИНА E Ot J30.2 OTHER SEASONAL ALLERGIC RHINITIS 09/11/2018 JO ANN TSAI ИРИНА E Ot K59.0 9 OTHER CONSTIPATION 09/11/2018 JO ANN TSAI ИРИНА E Ot K64.9 UNSPECIFIED HEMORRHOIDS 09/11/2018 JO ANN TSAI ИРИНА E Ot L21.9 SEBORRHEIC DERMATITIS, UNSPECIFIED 09/11/2018 JO ANN TSAI ИРИНА E Ot L40.5 0 ARTHROPATHIC PSORIASIS, UNSPECIFIED 09/11/2018 JO ANN TSAI ИРИНА E Ot M19.0 41 PRIMARY OSTEOARTHRITIS, RIGHT HAND 09/11/2018 JO ANN TSAI ИРИНА E Ot M19.0 42 PRIMARY OSTEOARTHRITIS, LEFT HAND 09/11/2018 JO ANN TSAI ИРИНА E Ot M19.9 0 UNSPECIFIED OSTEOARTHRITIS, UNSPECIFIED 09/11/2018 JO ANN TSAI ИРИНА E Ot M54.2 CERVICALGIA 09/11/2018 JO ANN TSAI ИРИНА E Ot M54.6 PAIN IN THORACIC SPINE 09/11/2018 JO ANN TSAI ИРИНА E Ot R05 COUGH 09/11/2018 JO ANN TSAI ИРИНА E Ot R53.8 1 OTHER MALAISE 09/11/2018 JO ANN TSAI ИРИНА E Ot Z48.8 12 ENCNTR FOR SURGICAL AFTCR FOLLOWING SURG 09/11/2018 ИРИНА CHERRY MD E Ot Z68.3 5 BODY MASS INDEX (BMI) 35.0-35.9, ADULT 09/11/2018 KIZZY CHERRY MDIC E Ot Z79.0 2 BOOM TENDER (CURRENT) USE OF ANTITHROMBOTI 09/11/2018 JO ANN TSAI ИРИНА E Ot Z87.8 91 PERSONAL HISTORY OF NICOTINE DEPENDENCE 09/11/2018 JO ANN TSAI ИРИНА E Ot Z90.4 9 ACQUIRED ABSENCE OF OTHER SPECIFIED PART 09/11/2018 JO ANN TSAI ИРИНА E Ot Z95.1 PRESENCE OF AORTOCORONARY BYPASS GRAFT 09/17/2018 Jessica PINA MD Ot E66 .9 OBESITY, UNSPECIFIED 09/17/2018 Jessica PINA MD Ot M19.91 PRIMARY OSTEOARTHRITIS, UNSPECIFIED SITE 09/17/2018 Jessica PINA MD Ot R06.02 SHORTNESS OF BREATH 09/17/2018 Jessica PINA MD Ot R07 .9 CHEST PAIN, UNSPECIFIED 09/17/2018 Jessica PINA MD Ot R94.31 ABNORMAL ELECTROCARDIOGRAM [ECG] [EKG] 12/05/2018 AISSATOU MIRAMONTES MD Ot R07. 81 PLEURODYNIA 12/05/2018 AISSATOU MIRAMONTES MD Ot R07. 89 OTHER CHEST PAIN 12/05/2018 AISSATOU MIRAMONTES MD Ot Z98.890 OTHER SPECIFIED POSTPROCEDURAL STATES 12/16/2018 Jessica PINA MD Ot I48 .0 PAROXYSMAL ATRIAL FIBRILLATION 12/16/2018 ANTONIO DESIR MD Ot Z48.812 ENCNTR FOR SURGICAL AFTCR FOLLOWING SURG 12/16/2018 ANTONIO DESIR MD Ot Z95 .1 PRESENCE OF AORTOCORONARY BYPASS GRAFT 12/24/2018 AISSATOU MIRAMONTES MD Ot R07. 81 PLEURODYNIA 12/24/2018 AISSATOU MIRAMONTES MD Ot R07. 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 01/20/2019 Jessica PINA MD Ot E66 .9 OBESITY, UNSPECIFIED 01/20/2019 Jessica PINA MD Ot M19.90 UNSPECIFIED OSTEOARTHRITIS, UNSPECIFIED 01/20/2019 Jessica PINA MD Ot R06.02 SHORTNESS OF BREATH 01/20/2019 Jessica PINA MD Ot R07 .9 CHEST PAIN, UNSPECIFIED 01/20/2019 Jessica PINA MD Ot R94.31 ABNORMAL ELECTROCARDIOGRAM [ECG] [EKG] 01/20/2019 Jessica PINA MD Ot E66 .9 OBESITY, UNSPECIFIED 01/20/2019 Jessica PINA MD Ot M19.91 PRIMARY OSTEOARTHRITIS, UNSPECIFIED SITE 01/20/2019 Jessica PINA MD Ot R06.02 SHORTNESS OF BREATH 01/20/2019 Jessica PINA MD Ot R07 .9 CHEST PAIN, UNSPECIFIED 01/20/2019 Jessica PINA MD Ot R94.31 ABNORMAL ELECTROCARDIOGRAM [ECG] [EKG] 01/20/2019 Jessica PINA MD Ot I48 .0 PAROXYSMAL ATRIAL FIBRILLATION 01/20/2019 AISSATOU MIRAMONTES MD Ot R07. 81 PLEURODYNIA 01/20/2019 AISSATOU MIRAMONTES MD Ot R07. 89 OTHER CHEST PAIN 01/20/2019 AISSATOU MIRAMONTES MD Ot Z98.890 OTHER SPECIFIED POSTPROCEDURAL STATES 01/20/2019 ANTONIO DESIR MD Ot Z48.812 ENCNTR FOR SURGICAL AFTCR FOLLOWING SURG 01/20/2019 ANTONIO DESIR MD Ot Z95 .1 PRESENCE OF AORTOCORONARY BYPASS GRAFT 01/20/2019 AISSATOU MIRAMONTES MD Ot R07. 81 PLEURODYNIA 01/20/2019 AISSATOU MIRAMONTES MD Ot R07. 89 OTHER CHEST PAIN 01/20/2019 AISSATOU MIRAMONTES MD Ot Z98.890 OTHER SPECIFIED POSTPROCEDURAL STATES 01/20/2019 Jessica PINA MD Ot I48 .0 PAROXYSMAL ATRIAL FIBRILLATION 01/20/2019 Jessica PINA MD Ot E66 .9 OBESITY, UNSPECIFIED 01/20/2019 Jessica PINA MD Ot M19.91 PRIMARY OSTEOARTHRITIS, UNSPECIFIED SITE 01/20/2019 Jessica PINA MD Ot R06.02 SHORTNESS OF BREATH 01/20/2019 Jessica PINA MD Ot R07 .9 CHEST PAIN, UNSPECIFIED 01/20/2019 Jessica PINA MD Ot R94.31 ABNORMAL ELECTROCARDIOGRAM [ECG] [EKG] 01/20/2019 Jessica PINA MD Ot E66 .9 OBESITY, UNSPECIFIED 01/20/2019 Jessica PINA MD Ot M19.90 UNSPECIFIED OSTEOARTHRITIS, UNSPECIFIED 01/20/2019 Jessica PINA MD Ot R06.02 SHORTNESS OF BREATH 01/20/2019 Jessica PINA MD Ot R07 .9 CHEST PAIN, UNSPECIFIED 01/20/2019 Jessica PINA MD Ot R94.31 ABNORMAL ELECTROCARDIOGRAM [ECG] [EKG] 01/20/2019 Ot 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 01/21/2019 Jessica PINA MD Ot E66 .9 OBESITY, UNSPECIFIED 01/21/2019 Jessica PINA MD Ot M19.90 UNSPECIFIED OSTEOARTHRITIS, UNSPECIFIED 01/21/2019 Jessica PINA MD Ot R06.02 SHORTNESS OF BREATH 01/21/2019 Jessica PINA MD Ot R07 .9 CHEST PAIN, UNSPECIFIED 01/21/2019 Jessica PINA MD Ot R94.31 ABNORMAL ELECTROCARDIOGRAM [ECG] [EKG] 01/22/2019 Jessica PINA MD Ot E66 .9 OBESITY, UNSPECIFIED 01/22/2019 Jessica PINA MD Ot M19.90 UNSPECIFIED OSTEOARTHRITIS, UNSPECIFIED 01/22/2019 Jessica PINA MD Ot R06.02 SHORTNESS OF BREATH 01/22/2019 Jessica PINA MD Ot R07 .9 CHEST PAIN, UNSPECIFIED 01/22/2019 Jessica PINA MD Ot R94.31 ABNORMAL ELECTROCARDIOGRAM [ECG] [EKG] 01/23/2019 ANTONIO DESIR MD Ot Z48.812 ENCNTR FOR SURGICAL AFTCR FOLLOWING SURG 01/23/2019 ANTONIO DESIR MD Ot Z95 .1 PRESENCE OF AORTOCORONARY BYPASS GRAFT 02/13/2019 Jessica PINA MD Ot I48 .0 PAROXYSMAL ATRIAL FIBRILLATION 02/14/2019 Jessica PINA MD Ot I48 .0 PAROXYSMAL ATRIAL FIBRILLATION 02/23/2019 KARLEE TSAI, ANTONIO Acosta Ot Z48.812 ENCNTR FOR SURGICAL AFTCR FOLLOWING SURG 02/23/2019 ANTONIO DESIR MD Ot Z95 .1 PRESENCE OF AORTOCORONARY BYPASS GRAFT 02/25/2019 ANTONIO DESIR MD Ot Z48.812 ENCNTR FOR SURGICAL AFTCR FOLLOWING SURG 02/25/2019 ANTONIO DESIR MD Ot Z95 .1 PRESENCE OF AORTOCORONARY BYPASS GRAFT 03/14/2019 ANTONIO DESIR MD Ot Z48.812 ENCNTR FOR SURGICAL AFTCR FOLLOWING SURG 03/14/2019 ANTONIO DESIR MD Ot Z95 .1 PRESENCE OF AORTOCORONARY BYPASS GRAFT 03/14/2019 Jessica PINA MD Ot I48 .0 PAROXYSMAL ATRIAL FIBRILLATION 03/19/2019 Jessica PINA MD Ot E66 .9 OBESITY, UNSPECIFIED 03/19/2019 Jessica PINA MD Ot E78 .5 HYPERLIPIDEMIA, UNSPECIFIED 03/19/2019 Jessica PINA MD Ot I10 ESSENTIAL (PRIMARY) HYPERTENSION 03/19/2019 Jessica PINA MD Ot I25.10 ATHSCL HEART DISEASE OF [place] CORONARY 03/19/2019 Jessica PINA MD Ot I48 .0 PAROXYSMAL ATRIAL FIBRILLATION 03/19/2019 Jessica PINA MD Ot I65.23 OCCLUSION AND STENOSIS OF [place]ILATERAL [place] 03/19/2019 Jessica PINA MD Ot L40.50 ARTHROPATHIC PSORIASIS, UNSPECIFIED 03/19/2019 Jessica PINA MD Ot Z68.34 BODY MASS INDEX (BMI) 34.0-34.9, ADULT 03/19/2019 Jessica PINA MD Ot Z79.82 CUSTODIAL (CURRENT) USE OF ASPIRIN 03/19/2019 Jessica PIAN MD Ot Z79.899 OTHER CUSTODIAL (CURRENT) DRUG THERAPY 03/19/2019 Jessica PINA MD, Ot Z82.49 FAMILY HX OF ISCHEM HEART DIS AND OTH DI 03/19/2019 Jessica PINA MD, Ot Z87.891 PERSONAL HISTORY OF NICOTINE DEPENDENCE 03/19/2019 Jessica PINA MD Ot Z95 .1 PRESENCE OF AORTOCORONARY BYPASS GRAFT 03/25/2019 Jessica PINA MD Ot E66 .9 OBESITY, UNSPECIFIED 03/25/2019 Jessica PINA MD Ot M19.90 UNSPECIFIED OSTEOARTHRITIS, UNSPECIFIED 03/25/2019 Jessica PINA MD Ot R06.02 SHORTNESS OF BREATH 03/25/2019 Jessica PINA MD Ot R07 .9 CHEST PAIN, UNSPECIFIED 03/25/2019 Jessica PINA MD Ot R94.31 ABNORMAL ELECTROCARDIOGRAM [ECG] [EKG] 04/02/2019 Jessica PINA MD Ot E66 .9 OBESITY, UNSPECIFIED 04/02/2019 Jessica PINA MD Ot E78 .5 HYPERLIPIDEMIA, UNSPECIFIED 04/02/2019 Jessica PINA MD Ot I10 ESSENTIAL (PRIMARY) HYPERTENSION 04/02/2019 Jessica PINA MD Ot I25.10 ATHSCL HEART DISEASE OF [place] CORONARY 04/02/2019 Jessica PINA MD Ot I48 .0 PAROXYSMAL ATRIAL FIBRILLATION 04/02/2019 Jessica PINA MD Ot I65.23 OCCLUSION AND STENOSIS OF [place]ILATERAL [place] 04/02/2019 Jessica PINA MD Ot L40.50 ARTHROPATHIC PSORIASIS, UNSPECIFIED 04/02/2019 Jessica PINA MD Ot Z68.34 BODY MASS INDEX (BMI) 34.0-34.9, ADULT 04/02/2019 Jessica PINA MD Ot Z79.82 BOOM TENDER (CURRENT) USE OF ASPIRIN 04/02/2019 Jessica PINA MD Ot Z79.899 OTHER CUSTODIAL (CURRENT) DRUG THERAPY 04/02/2019 Jessica PINA MD Ot Z82.49 FAMILY HX OF ISCHEM HEART DIS AND OTH DI 04/02/2019 Jessica PINA MD, Ot Z87.891 PERSONAL HISTORY OF NICOTINE DEPENDENCE 04/02/2019 SILVANA TSAI, Jessica SAMANO Ot Z95 .1 PRESENCE OF AORTOCORONARY BYPASS GRAFT 04/22/2019 KARLEE TSAI, ANTONIO Acosta Ot Z48.812 ENCNTR FOR SURGICAL AFTCR FOLLOWING SURG 04/22/2019 ANTONIO DESIR MD Ot Z95 .1 PRESENCE OF AORTOCORONARY BYPASS GRAFT 04/30/2019 ANTONIO DESIR MD Ot Z29 .8 ENCOUNTER FOR OTHER SPECIFIED PROPHYLACT 05/01/2019 Jessica PINA MD Ot I48 .0 PAROXYSMAL ATRIAL FIBRILLATION 05/01/2019 Jessica PINA MD Ot R06.02 SHORTNESS OF BREATH 05/01/2019 Jessica PINA MD Ot R42 DIZZINESS AND GIDDINESS 05/01/2019 ANTONIO DESIR MD Ot Z29 .8 ENCOUNTER FOR OTHER SPECIFIED PROPHYLACT 05/04/2019 Jessica PINA MD Ot I48 .0 PAROXYSMAL ATRIAL FIBRILLATION 05/04/2019 Jessica PINA MD Ot R06.02 SHORTNESS OF BREATH 05/04/2019 Jessica PINA MD Ot R42 DIZZINESS AND GIDDINESS 05/07/2019 KULWINDER TSAI, AISSATOU Hankins Ot R07. 2 PRECORDIAL PAIN 05/07/2019 KULWINDER TSAI, AISSATOU Hankins Ot R10. 13 EPIGASTRIC PAIN 05/28/2019 AISSATOU MIRAMONTES MD Ot R07. 2 PRECORDIAL PAIN 05/28/2019 KULWINDER TSAI, AISSATOU Hankins Ot R10. 13 EPIGASTRIC PAIN 05/30/2019 Jessica PINA MD Ot E66 .9 OBESITY, UNSPECIFIED 05/30/2019 Jessica PINA MD Ot M19.90 UNSPECIFIED OSTEOARTHRITIS, UNSPECIFIED 05/30/2019 Jessica PINA MD Ot R06.02 SHORTNESS OF BREATH 05/30/2019 Jessica PINA MD Ot R07 .9 CHEST PAIN, UNSPECIFIED 05/30/2019 Jessica PINA MD Ot R94.31 ABNORMAL ELECTROCARDIOGRAM [ECG] [EKG] 07/03/2019 Jessica PINA MD, Ot E66 .9 OBESITY, UNSPECIFIED 07/03/2019 Jessica PINA MD Ot E78 .5 HYPERLIPIDEMIA, UNSPECIFIED 07/03/2019 Jessica PINA MD, Ot I10 ESSENTIAL (PRIMARY) HYPERTENSION 07/03/2019 Jessica PINA MD, Ot I25.10 ATHSCL HEART DISEASE OF [place] CORONARY 07/03/2019 Jessica PINA MD, Ot I48 .0 PAROXYSMAL ATRIAL FIBRILLATION 07/03/2019 Jessica PINA MD, Ot I65.23 OCCLUSION AND STENOSIS OF [place]ILATERAL [place] 07/03/2019 Jessica PINA MD, Ot L40.50 ARTHROPATHIC PSORIASIS, UNSPECIFIED 07/03/2019 Jessica PINA MD, Ot Z68.34 BODY MASS INDEX (BMI) 34.0-34.9, ADULT 07/03/2019 Jessica PINA MD, Ot Z79.82 CUSTODIAL (CURRENT) USE OF ASPIRIN 07/03/2019 Jessica PINA MD, Ot Z79.899 OTHER CUSTODIAL (CURRENT) DRUG THERAPY 07/03/2019 Jessica PINA MD, Ot Z82.49 FAMILY HX OF ISCHEM HEART DIS AND OTH DI 07/03/2019 Jessica PINA MD, Ot Z87.891 PERSONAL HISTORY OF NICOTINE DEPENDENCE 07/03/2019 Jessica PINA MD, Ot Z95 .1 PRESENCE OF AORTOCORONARY BYPASS GRAFT 07/16/2019 ANTONIO DESIR MD Ot Z29 .8 ENCOUNTER FOR OTHER SPECIFIED PROPHYLACT 08/29/2019 VASYL PACHECO DO Ot I25.10 ATHSCL HEART DISEASE OF [place] CORONARY 08/29/2019 VASYL PACHECO DO Ot I48.91 UNSPECIFIED ATRIAL FIBRILLATION 08/29/2019 VASYL PACHECO DO Ot M54.5 LOW BACK PAIN 08/29/2019 VASYL PACHECO DO Ot S39.012 A STRAIN OF MUSCLE, FASCIA AND TENDON OF L 08/29/2019 VASYL PACHECO DO Ot X50.1XX A OVEREXERTION FROM PROLONGED STATIC OR AW 08/29/2019 VASYL PACHECO DO Ot Z79.02 CUSTODIAL (CURRENT) USE OF ANTITHROMBOTI 08/29/2019 CAROLYN PACHECO DOA K Ot Z79.82 BOOM TENDER (CURRENT) USE OF ASPIRIN 08/29/2019 BOHEMIA VASYL WINTERS Ot Z82.49 FAMILY HX OF ISCHEM HEART DIS AND OTH DI 08/29/2019 TARA VASYL WINTERS Ot Z87.891 PERSONAL HISTORY OF NICOTINE DEPENDENCE 08/29/2019 BOHEMIA VASYL WINTERS Ot Z95.1 PRESENCE OF AORTOCORONARY BYPASS GRAFT 09/03/2019 TARA VASYL Teresa Ot I25.10 ATHSCL HEART DISEASE OF [place] CORONARY 09/03/2019 BOHEMIA VASYL Teresa Ot I48.91 UNSPECIFIED ATRIAL FIBRILLATION 09/03/2019 TARA VASYL Teresa Ot M54.5 LOW BACK PAIN 09/03/2019 TARA VASYL Teresa Ot S39.012 A STRAIN OF MUSCLE, FASCIA AND TENDON OF L 09/03/2019 BOHEMIA VASYL WINTERS Ot X50.1XX A OVEREXERTION FROM PROLONGED STATIC OR AW 09/03/2019 TARA VASYL Teresa Ot Z79.02 BOOM TENDER (CURRENT) USE OF ANTITHROMBOTI 09/03/2019 TARA VASYL Teresa Ot Z79.82 CUSTODIAL (CURRENT) USE OF ASPIRIN 09/03/2019 BOHEMIA VASYL Teresa Ot Z82.49 FAMILY HX OF ISCHEM HEART DIS AND OTH DI 09/03/2019 TARA VASYL Teresa Ot Z87.891 PERSONAL HISTORY OF NICOTINE DEPENDENCE 09/03/2019 BOHEMIA VASYL Teresa Ot Z95.1 PRESENCE OF AORTOCORONARY BYPASS GRAFT 11/18/2019 COLTHARP DO, JAMAR A Ot R05 COUGH 11/18/2019 Ot 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 11/18/2019 SILVANA TSAI, Jessica SAMANO Ot E66 .9 OBESITY, UNSPECIFIED 11/18/2019 SILVANA TSAI, Jessica SAMANO Ot M19.90 UNSPECIFIED OSTEOARTHRITIS, UNSPECIFIED 11/18/2019 Jessica PINA MD Ot R06.02 SHORTNESS OF BREATH 11/18/2019 Jessica PINA MD Ot R07 .9 CHEST PAIN, UNSPECIFIED 11/18/2019 Jessica PINA MD Ot R94.31 ABNORMAL ELECTROCARDIOGRAM [ECG] [EKG] 11/18/2019 Jessica PINA MD Ot E66 .9 OBESITY, UNSPECIFIED 11/18/2019 Jessica PINA MD Ot M19.91 PRIMARY OSTEOARTHRITIS, UNSPECIFIED SITE 11/18/2019 Jessica PINA MD Ot R06.02 SHORTNESS OF BREATH 11/18/2019 Jessica PINA MD Ot R07 .9 CHEST PAIN, UNSPECIFIED 11/18/2019 Jessica PINA MD Ot R94.31 ABNORMAL ELECTROCARDIOGRAM [ECG] [EKG] 11/18/2019 AISSATOU MIRAMONTES MD Ot R07. 81 PLEURODYNIA 11/18/2019 AISSATOU MIRAMONTES MD Ot R07. 89 OTHER CHEST PAIN 11/18/2019 AISSATOU MIRAMONTES MD Ot Z98.890 OTHER SPECIFIED POSTPROCEDURAL STATES 11/18/2019 Jessica PINA MD Ot I48 .0 PAROXYSMAL ATRIAL FIBRILLATION 11/18/2019 Jessica PINA MD Ot E66 .9 OBESITY, UNSPECIFIED 11/18/2019 Jessica PINA MD Ot E78 .5 HYPERLIPIDEMIA, UNSPECIFIED 11/18/2019 Jessica PINA MD Ot I10 ESSENTIAL (PRIMARY) HYPERTENSION 11/18/2019 Jessica PINA MD Ot I25.10 ATHSCL HEART DISEASE OF [place] CORONARY 11/18/2019 Jessica PINA MD Ot I48 .0 PAROXYSMAL ATRIAL FIBRILLATION 11/18/2019 Jessica PINA MD Ot I65.23 OCCLUSION AND STENOSIS OF BILATERAL [place] 11/18/2019 Jessica PINA MD Ot L40.50 ARTHROPATHIC PSORIASIS, UNSPECIFIED 11/18/2019 Jessica PINA MD Ot Z68.34 BODY MASS INDEX (BMI) 34.0-34.9, ADULT 11/18/2019 Jessica PINA MD Ot Z79.82 CUSTODIAL (CURRENT) USE OF ASPIRIN 11/18/2019 Jessica PINA MD, Ot Z79.899 OTHER BOOM TENDER (CURRENT) DRUG THERAPY 11/18/2019 Jessica PINA MD, Ot Z82.49 FAMILY HX OF ISCHEM HEART DIS AND OTH DI 11/18/2019 Jessica PINA MD Ot Z87.891 PERSONAL HISTORY OF NICOTINE DEPENDENCE 11/18/2019 Jessica PINA MD Ot Z95 .1 PRESENCE OF AORTOCORONARY BYPASS GRAFT 11/18/2019 ANTONIO DESIR MD Ot Z48.812 ENCNTR FOR SURGICAL AFTCR FOLLOWING SURG 11/18/2019 ANTONIO DESIR MD Ot Z95 .1 PRESENCE OF AORTOCORONARY BYPASS GRAFT 11/18/2019 Jessica PINA MD, Ot I48 .0 PAROXYSMAL ATRIAL FIBRILLATION 11/18/2019 Jessica PINA MD Ot R06.02 SHORTNESS OF BREATH 11/18/2019 Jessica PINA MD Ot R42 DIZZINESS AND GIDDINESS 11/18/2019 KULWINDER TSAI, AISSATOU Hankins Ot R07. 2 PRECORDIAL PAIN 11/18/2019 AISSATOU MIRAMONTES MD Ot R10. 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 11/18/2019 Jessica PINA MD Ot E66 .9 OBESITY, UNSPECIFIED 11/18/2019 Jessica PINA MD Ot M19.90 UNSPECIFIED OSTEOARTHRITIS, UNSPECIFIED 11/18/2019 Jessica PINA MD Ot R06.02 SHORTNESS OF BREATH 11/18/2019 Jessica PINA MD Ot R07 .9 CHEST PAIN, UNSPECIFIED 11/18/2019 Jessica PINA MD Ot R94.31 ABNORMAL ELECTROCARDIOGRAM [ECG] [EKG] 11/18/2019 Jessica PINA MD Ot E66 .9 OBESITY, UNSPECIFIED 11/18/2019 Jessica PINA MD Ot M19.91 PRIMARY OSTEOARTHRITIS, UNSPECIFIED SITE 11/18/2019 Jessica PINA MD Ot R06.02 SHORTNESS OF BREATH 11/18/2019 Jessica PINA MD Ot R07 .9 CHEST PAIN, UNSPECIFIED 11/18/2019 Jessica PINA MD Ot R94.31 ABNORMAL ELECTROCARDIOGRAM [ECG] [EKG] 11/18/2019 AISSATOU MIRAMONTES MD Ot R07. 81 PLEURODYNIA 11/18/2019 AISSATOU MIRAMONTES MD Ot R07. 89 OTHER CHEST PAIN 11/18/2019 AISSATOU MIRAMONTES MD Ot Z98.890 OTHER SPECIFIED POSTPROCEDURAL STATES 11/18/2019 Jessica PINA MD Ot I48 .0 PAROXYSMAL ATRIAL FIBRILLATION 11/18/2019 Jessica PINA MD Ot E66 .9 OBESITY, UNSPECIFIED 11/18/2019 Jessica PINA MD, Ot E78 .5 HYPERLIPIDEMIA, UNSPECIFIED 11/18/2019 Jessica PINA MD Ot I10 ESSENTIAL (PRIMARY) HYPERTENSION 11/18/2019 Jessica PINA MD Ot I25.10 ATHSCL HEART DISEASE OF [place] CORONARY 11/18/2019 Jessica PINA MD Ot I48 .0 PAROXYSMAL ATRIAL FIBRILLATION 11/18/2019 Jessica PINA MD Ot I65.23 OCCLUSION AND STENOSIS OF BILATERAL [place] 11/18/2019 Jessica PINA MD Ot L40.50 ARTHROPATHIC PSORIASIS, UNSPECIFIED 11/18/2019 Jessica PINA MD Ot Z68.34 BODY MASS INDEX (BMI) 34.0-34.9, ADULT 11/18/2019 Jessica PINA MD Ot Z79.82 BOOM TENDER (CURRENT) USE OF ASPIRIN 11/18/2019 Jessica PINA MD Ot Z79.899 OTHER CUSTODIAL (CURRENT) DRUG THERAPY 11/18/2019 Jessica PINA MD, Ot Z82.49 FAMILY HX OF ISCHEM HEART DIS AND OTH DI 11/18/2019 Jessica PINA MD, Ot Z87.891 PERSONAL HISTORY OF NICOTINE DEPENDENCE 11/18/2019 Jessica PINA MD Ot Z95 .1 PRESENCE OF AORTOCORONARY BYPASS GRAFT 11/18/2019 ANTONIO DESIR MD Ot Z48.812 ENCNTR FOR SURGICAL AFTCR FOLLOWING SURG 11/18/2019 ANTONIO DESIR MD Ot Z95 .1 PRESENCE OF AORTOCORONARY BYPASS GRAFT 11/18/2019 SILVANA TSAI, Jessica SAMANO Ot I48 .0 PAROXYSMAL ATRIAL FIBRILLATION 11/18/2019 SILVANA TSAI, Jessica SAMANO Ot R06.02 SHORTNESS OF BREATH 11/18/2019 Jessica PINA MD, Ot R42 DIZZINESS AND GIDDINESS 11/18/2019 AISSATOU MIRAMONETS MD Ot R07. 2 PRECORDIAL PAIN 11/18/2019 AISSATOU MIRAMONTES MD Ot R10. 13 EPIGASTRIC PAIN 12/01/2019 AISSATOU MIRAMONTES MD Ot R10. 32 LEFT LOWER QUADRANT PAIN 12/15/2019 AISSATOU MIRAMONTES MD Ot R10. 32 LEFT LOWER QUADRANT PAIN 01/13/2020 Jessica PINA MD Ot E78 .5 HYPERLIPIDEMIA, UNSPECIFIED 01/13/2020 Jessica PINA MD Ot I11 .0 HYPERTENSIVE HEART DISEASE WITH HEART FA 01/13/2020 Jessica PINA MD, Ot I25.10 ATHSCL HEART DISEASE OF [place] CORONARY 01/13/2020 Jessica PINA MD Ot I48 .0 PAROXYSMAL ATRIAL FIBRILLATION 01/13/2020 Jessica PINA MD Ot I51.89 OTHER ILL-DEFINED HEART DISEASES 01/13/2020 Jessica PINA MD Ot M19.90 UNSPECIFIED OSTEOARTHRITIS, UNSPECIFIED 01/30/2020 Jessica PINA MD, Ot E78 .5 HYPERLIPIDEMIA, UNSPECIFIED 01/30/2020 Jessica PINA MD Ot I11 .0 HYPERTENSIVE HEART DISEASE WITH HEART FA 01/30/2020 Jessica PINA MD Ot I25.10 ATHSCL HEART DISEASE OF [place] CORONARY 01/30/2020 Jessica PINA MD Ot I48 .0 PAROXYSMAL ATRIAL FIBRILLATION 01/30/2020 Jessica PINA MD Ot I51.89 OTHER ILL-DEFINED HEART DISEASES 01/30/2020 Jessica PINA MD, Ot M19.90 UNSPECIFIED OSTEOARTHRITIS, UNSPECIFIED Procedures Code Description Performed By Per formed On 38.93 VENO US CATHETERIZATION NEC 04/11/2013 45.76 OPEN AND OTHER SIGMOIDECTOMY 04/11/2013 46.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 04/11/2013 45.62 PART SM BOWEL RESECT NEC 07/16/2013 45.91 SM-T O-SM BOWEL ANASTOM 07/16/2013 46.52 LG B OWEL STOMA CLOSURE 07/16/2013 Results Test Result Range PT panel in platelet poor plasma by coag ulation assay - 08/26/18 13:01 Prothrombin time (PT) in platelet poor plasma by coagu lation assay 13.7 s 12.2-14.7 INR in platelet poor plasma or blood by coagulation as say 1.0 0.8-1.4 Activated partial thromboplastin time (a PTT) in platelet poor plasma bycoagulation assay - 08/26/18 13:01 Activated partial thromboplastin time (a PTT) in platelet poor plasma bycoagulation assay 31 s 24-35 Automated blood complete blood count (he mogram) panel - 08/26/18 13:01 Blood leukocytes automated count (number/volume) 4.8 10*3/uL 4.3-11.0 Blood erythrocytes automated count (number/volume) 3.81 10*6/uL 4.35-5.85 Venous blood hemoglobin measurement (mass/volume) 12.7 g/dL 13.3-17.7 Blood hematocrit (volume fraction) 36 % 40-54 Automated erythrocyte mean corpuscular volume 94 [ foz_us] 80-99 Automated erythrocyte mean corpuscular h emoglobin (mass per erythrocyte) 33 pg 25-34 Automated erythrocyte mean corpuscular h emoglobin concentration measurement (mass/volume) 36 g/dL 32-36 Automated erythrocyte distribution width ratio 14. 4 % 10.0- 14.5 Automated blood platelet count (count/volume) 80 1 0*3/uL 130-400 Automated blood platelet mean volume measurement [...] 5-14 Serum or plasma urea nitrogen measurement (mass/volume ) 14 mg/dL 7-18 Serum or plasma creatinine measurement (mass/volume) 0.87 mg/dL 0.60-1.30 Serum or plasma urea nitrogen/creatinine mass ratio 16 NRG Serum or plasma creatinine measurement w ith calculation of estimated glomerular filtration rate > NRG Serum or plasma glucose measurement (mass/volume) 87 mg/dL 70-105 Serum or plasma calcium measurement (mass/volume) 9.1 mg/dL 8.5-10.1 Serum or plasma total bilirubin measurement (mass/volu me) 0.8 mg/dL 0.1-1.0 Serum or plasma alkaline phosphatase ye surement (enzymatic activity/volume) 68 U/L 40-136 Serum or plasma aspartate aminotransfera se measurement (enzymatic activity/volume) 20 U/L 5-34 Serum or plasma alanine aminotransferase measurement (enzymatic activity/volume) 23 U/L 0-55 Serum or plasma protein measurement (mass/volume) 7.4 g/dL 6.4-8.2 Serum or plasma albumin measurement (mass/volume) 3.8 g/dL 3.2-4.5 CALCIUM CORRECTED 9.3 mg/dL 8.5-10.1 Methicillin resistant Staphylococcus aur eus (MRSA) screening culture - 08/26/18 13:01 Methicillin resistant Staphylococcus aureus (MRSA) scr eening culture NEG NRG Complete blood count (CBC) with automate d white blood cell (WBC) differential - 09/06/18 05:30 Blood leukocytes automated count (number/volume) 8.8 10*3/uL 4.3-11.0 Blood erythrocytes automated count (number/volume) 2.57 10*6/uL 4.35-5.85 Venous blood hemoglobin measurement (mass/volume) 8.4 g/dL 13.3-17.7 Blood hematocrit (volume fraction) 26 % 40-54 Automated erythrocyte mean corpuscular volume 98 [ foz_us] 80-99 Automated erythrocyte mean corpuscular h emoglobin (mass per erythrocyte) 33 pg 25-34 Automated erythrocyte mean corpuscular h emoglobin concentration measurement (mass/volume) 34 g/dL 32-36 Automated erythrocyte distribution width ratio 15. 5 % 10.0- 14.5 Automated blood platelet count (count/volume) 140 10*3/uL [...] 10*3 1.0-4.0 Blood monocytes automated count (number/volume) 0. 9 10*3 0.0-1.0 Automated eosinophil count 0.3 10*3/uL 0 .0-0.3 Automated blood basophil count (count/volume) 0.0 10*3/uL 0.0-0.1 Whole blood basic metabolic panel - 08/19 08/06 05:30 Serum or plasma sodium measurement (moles/volume) 136 mmol/L 135-145 Serum or plasma potassium measurement (moles/volume) 3.9 mmol/L 3.6-5.0 Serum or plasma chloride measurement (moles/volume) 105 mmol/L 98-107 Carbon dioxide 19 mmol/L 21-32 Serum or plasma anion gap determination (moles/volume) 12 mmol/L 5-14 Serum or plasma urea nitrogen measurement (mass/volume ) 17 mg/dL 7-18 Serum or plasma creatinine measurement (mass/volume) 0.93 mg/dL 0.60-1.30 Serum or plasma urea nitrogen/creatinine mass ratio 18 NRG Serum or plasma creatinine measurement w ith calculation of estimated glomerular filtration rate > NRG Serum or plasma glucose measurement (mass/volume) 92 mg/dL 70-105 Serum or plasma calcium measurement (mass/volume) 8.4 mg/dL 8.5-10.1 Encounters ACCT No. Visit Date/Time Discharge Status Pt. Type Provider Facility Loc./Unit Complaint [id number] 10/20/2014 16:27:25 10/20/2014 23:59: 59 [facility] Outpatient Milagros Wolf [id number] 08/13/2014 15:39:15 08/13/2014 23:59: 59 C[facility] Outpatient Milagros Wolf [id number] 12/23/2019 08:34:00 23:59:59 CLS Outpatient Jessica PINA MD [facility] CARD CAD,PAF [id number] 11/20/2019 10:24:00 23:59:59 CLS Outpatient AISSATOU MIRAMONTES MD [facility] RAD LT PERINEAL PAIN,LT ING UINAL PAIN [id number] 08/29/2019 17:42:00 19:36:00 DIS Emergency TARA DO, VASYL Teresa [facility] ER BACK PAIN [id number] 07/17/2019 00:15:00 23:59:59 CLS Preadmit ANTONIO DESIR MD [facility] CR PHASE III [id number] 07/07/2019 14:45:00 00:01:00 DIS Outpatient ANTONIO DESIR MD [facility] CR3 CR PHASE III [id number] 05/07/2019 13:35:00 23:59:59 CLS Outpatient AISSATOU MIRAMONTES MD [facility] RAD XIPHOID/STERNAL PAIN [id number] 05/02/2019 11:30:00 23:59:59 CLS Preadmit Jessica PINA MD [facility] CARD PAF, DIZZINESS, SOB [id number] 01/31/2019 11:43:00 00:01:00 DIS Outpatient Jessica PINA MD [facility] CARD PAF, DIZZINESS, SOB [id number] 04/02/2019 14:05:00 00:01:00 DIS Outpatient ANTONIO DESIR MD [facility] CR3 CR PHASE III [id number] 04/23/2019 09:00:00 23:59:59 CLS Preadmit ANTONIO DESIR MD [facility] CR POST ACB [id number] 02/28/2019 09:08:00 00:01:00 DIS Outpatient ANTONIO DESIR MD [facility] CR POST ACB [id number] 03/13/2019 09:59:00 23:59:59 CLS Outpatient Jessica PINA MD [facility] CATH PAF [id number] 02/14/2019 00:12:00 23:59:59 CLS Preadmit Jessica PINA MD [facility] CARD PAF [id number] 01/20/2019 09:07:00 00:01:00 DIS Outpatient Jessica PINA MD [facility] CARD PAF [id number] 01/22/2019 14:19:00 23:59:59 CLS Preadmit Jessica PINA MD [facility] CARD PAF, DIZZINESS, SOB [id number] 01/15/2019 10:42:00 00:01:00 DIS Outpatient ANTONIO DESIR MD [facility] CR POST ACB [id number] 12/04/2018 10:54:00 23:59:59 CLS Outpatient KULWINDER TSAI, AISSATOU Hankins [facility] RAD RT CHEST PAIN [id number] 09/04/2018 13:33:00 15:00:00 DIS Inpatient JO ANN TSAI, ИРИНА Stuart [facility] IRF TOXIC MYOPATHY [id number] 08/26/2018 11:53:00 18:00:00 DIS Outpatient Jessica PINA MD [facility] CATH CHEST PAIN,SHORTNESS OF BREATH,ABN NUC TEST [id number] 08/22/2018 07:11:00 23:59:59 CLS Outpatient Jessica PINA MD [facility] CARD [id number] ABN EKG [id number] 08/15/2018 11:09:00 23:59:59 CLS Outpatient Jessica PINA MD [facility] CARD [id number] ABN EKG [id number] 12/29/2016 11:07:00 23:59:59 CLS Outpatient COLTHARP JAMAR WINTERS [facility] RAD COUGH [id number] 07/31/2013 11:25:00 23:59:59 CLS Outpatient SUSU SINGLETON MD [facility] LAB LOW K [id number] 07/24/2013 10:27:00 13:30:00 DIS Emergency BOBWALTER APRN [facility] ER WOUND CHECK [id number] 07/16/2013 08:05:00 13:20:00 DIS Inpatient SUSU SINGLETON MD [facility] SURGICAL DIVERTICULAR STRICTURE [id number] 07/14/2013 08:46:00 11:55:00 DIS Outpatient SUSU SINGLETON MD [facility] SDC DIVERTICULAR STRICTURE [id number] 07/09/2013 10:11:00 23:59:59 CLS Outpatient SUSU SINGLETON MD [facility] PREOP DIVERTICULAR STRICTURE [id number] 06/18/2013 09:15:00 12:48:00 DIS Outpatient SUSU SINGLETON MD [facility] WOUNDCARE ABD WOUND [id number] 04/11/2013 14:10:00 11:00:00 DIS Inpatient QUIANA DUVAL DO [facility] SURGICAL OBSTRUCTION OF SIGNOIT,CONSTIPATION,WT LOSS,VOMITI [id number] 04/09/2013 11:34:00 23:59:59 CLS Outpatient QUIANA DUVAL DO [facility] RAD CONSTIPATION,AB D PAIN,DISTENDED STOMACH,WT LOSS [id number] 07/03/2018 14:45:00 Document Registration
== END | disposition home or self-care (01) ==
LOC: RAD 09:40 → SDC 10:55
PROVIDERS: ATTEND Internal Medicine Hematology & Oncology
DX: C92.00 Acute myeloblastic leukemia, not having achieved remission (principal); D69.6 Thrombocytopenia, unspecified; I25.10 Atherosclerotic heart disease of native coronary artery without angina pectoris; I11.9 Hypertensive heart disease without heart failure; E78.5 Hyperlipidemia, unspecified; I48.0 Paroxysmal atrial fibrillation; M19.91 Primary osteoarthritis, unspecified site; Z95.1 Presence of aortocoronary bypass graft; Z87.891 Personal history of nicotine dependence; Z79.899 Other long term (current) drug therapy
CPT/HCPCS: 38222; 77012

== ENCOUNTER 2020-03-08 10:36 | Outpatient (RCR) | payer MEDICARE ==
[2020-02-06 09:30] LABS: ABSOLUTE RETIC # 148 10e9/L (24-90); HEMATOCRIT 26 % (40-54); MEAN CORPUSCULAR HEMOGLOBIN 34 PG (25-34); MEAN CORPUSCULAR HGB CONC 31 G/DL (32-36); MEAN CORPUSCULAR VOLUME 110 FL (80-99); MEAN PLATELET VOLUME 10.9 FL (7.4-10.4); RED CELL DISTRIBUTION WIDTH 16.5 % (10.0-14.5); RETICULOCYTE % 6.22 % (0.50-2.40)
[2020-02-06 09:32] LABS: PLATELET COUNT 26 10^3/uL (130-400); WHITE BLOOD COUNT 54.5 10^3/uL (4.3-11.0)
[2020-02-06 09:42] LABS: INR 1.4 (0.8-1.4)
[2020-02-06 09:51] LABS: ALBUMIN 3.7 GM/DL (3.2-4.5); BILIRUBIN,TOTAL 0.8 MG/DL (0.1-1.0); CALCIUM 8.1 MG/DL (8.5-10.1); CREATININE SERUM 1.56 MG/DL (0.60-1.30); POTASSIUM 3.7 MMOL/L (3.6-5.0); TOTAL PROTEIN 6.7 GM/DL (6.4-8.2); URIC ACID 9.9 MG/DL (2.6-7.2)
[2020-02-06 11:13] LABS: ANISOCYTOSIS SLIGHT; BAND NEUTROPHILS 3 %; BASOPHILS % (MANUAL) 0 %; EOSINOPHILS % (MANUAL) 2 %; HYPOCHROMASIA SLIGHT; LYMPHOCYTES % (MANUAL) 27 %; MONOCYTES % (MANUAL) 32 %; NEUTROPHILS % (MANUAL) 26 %; NUCLEATED RED BLOOD CELLS 3; PLATELET ESTIMATE 51; POIKILOCYTOSIS SLIGHT; POLYCHROMASIA SLIGHT; REACTIVE LYMPHOCYTES 10 %; SMUDGE CELLS SLIGHT
[2020-02-06 11:14] LABS: TEAR DROP CELLS SLIGHT
[2020-02-24 09:42] LABS: BASOPHILS % (AUTO) 1 % (0-10); EOSINOPHILS # (AUTO) 0.1 10^3/uL (0.0-0.3); EOSINOPHILS % (AUTO) 3 % (0-10); HEMATOCRIT 24 % (40-54); LYMPHOCYTES # (AUTO) 0.7 X 10^3 (1.0-4.0); LYMPHOCYTES % (AUTO) 40 % (12-44); MEAN CORPUSCULAR HEMOGLOBIN 31 PG (25-34); MEAN CORPUSCULAR HGB CONC 34 G/DL (32-36); MEAN CORPUSCULAR VOLUME 92 FL (80-99); MEAN PLATELET VOLUME 9.6 FL (7.4-10.4); MONOCYTES # (AUTO) 0.6 X 10^3 (0.0-1.0); MONOCYTES % (AUTO) 33 % (0-12); NEUTROPHILS # (AUTO) 0.5 X 10^3 (1.8-7.8); NEUTROPHILS % (AUTO) 25 % (42-75); WHITE BLOOD COUNT 1.8 10^3/uL (4.3-11.0)
[2020-02-24 09:43] LABS: PLATELET COUNT 10 10^3/uL (130-400)
[2020-02-24 09:50] LABS: ALBUMIN 3.2 GM/DL (3.2-4.5); POTASSIUM 3.5 MMOL/L (3.6-5.0)
[2020-02-24 09:51] LABS: CALCIUM 8.3 MG/DL (8.5-10.1)
[2020-02-24 09:52] LABS: TOTAL PROTEIN 6.5 GM/DL (6.4-8.2)
[2020-02-24 09:54] LABS: BILIRUBIN,TOTAL 1.8 MG/DL (0.1-1.0)
[2020-02-24 09:56] LABS: CREATININE SERUM 1.18 MG/DL (0.60-1.30)
[2020-02-26 13:31] LABS: BASOPHILS % (AUTO) 0 % (0-10); EOSINOPHILS # (AUTO) 0.1 10^3/uL (0.0-0.3); EOSINOPHILS % (AUTO) 4 % (0-10); HEMATOCRIT 22 % (40-54); HEMOGLOBIN 7.4 G/DL (13.3-17.7); LYMPHOCYTES # (AUTO) 0.7 X 10^3 (1.0-4.0); LYMPHOCYTES % (AUTO) 35 % (12-44); MEAN CORPUSCULAR HEMOGLOBIN 31 PG (25-34); MEAN CORPUSCULAR HGB CONC 33 G/DL (32-36); MEAN CORPUSCULAR VOLUME 92 FL (80-99); MEAN PLATELET VOLUME 9.9 FL (7.4-10.4); MONOCYTES # (AUTO) 0.8 X 10^3 (0.0-1.0); MONOCYTES % (AUTO) 40 % (0-12); NEUTROPHILS # (AUTO) 0.4 X 10^3 (1.8-7.8); NEUTROPHILS % (AUTO) 21 % (42-75); RED CELL DISTRIBUTION WIDTH 15.5 % (10.0-14.5)
[2020-02-26 13:33] LABS: PLATELET COUNT 8 10^3/uL (130-400)
[2020-03-04 08:31] LABS: BASOPHILS % (AUTO) 0 % (0-10); EOSINOPHILS % (AUTO) 1 % (0-10); HEMATOCRIT 24 % (40-54); HEMOGLOBIN 7.9 G/DL (13.3-17.7); LYMPHOCYTES # (AUTO) 0.7 X 10^3 (1.0-4.0); LYMPHOCYTES % (AUTO) 20 % (12-44); MEAN CORPUSCULAR HEMOGLOBIN 32 PG (25-34); MEAN CORPUSCULAR HGB CONC 33 G/DL (32-36); MEAN CORPUSCULAR VOLUME 98 FL (80-99); MONOCYTES # (AUTO) 1.9 X 10^3 (0.0-1.0); MONOCYTES % (AUTO) 58 % (0-12); NEUTROPHILS # (AUTO) 0.7 X 10^3 (1.8-7.8); NEUTROPHILS % (AUTO) 21 % (42-75); RED CELL DISTRIBUTION WIDTH 22.4 % (10.0-14.5); WHITE BLOOD COUNT 3.4 10^3/uL (4.3-11.0)
[2020-03-04 08:36] LABS: PLATELET COUNT 6 10^3/uL (130-400)
[~2020-03-08 10:36] MED LIST changes: +ACETAMINOPHEN 500 MG TAB (TYLENOL) CANCER CTR ONE; -HYDROcodone/APAP 5 MG/325 MG (LORTAB) TAB PO PRN; -LIDOCAINE 1% INJ 20 ML 20 ML VIAL INJ ONE; -MIDAZOLAM 2 MG/2 ML (VERSED) VIAL IVP ONE; -NS IV 1000 ML 1,000 ML IV STA; +NS IV 500 ML (CANCER CENTER) 500 ML ONE; +diphenhydrAMINE 25 MG TAB (BENADRYL) CANCER CENTER PO ONE; -fentaNYL INJECTION 100 MCG/2 ML AMP IVP ONE
[2020-03-08 10:59] LABS: BASOPHILS % (AUTO) 0 % (0-10); EOSINOPHILS % (AUTO) 1 % (0-10); HEMATOCRIT 24 % (40-54); HEMOGLOBIN 7.6 G/DL (13.3-17.7); LYMPHOCYTES # (AUTO) 0.8 X 10^3 (1.0-4.0); LYMPHOCYTES % (AUTO) 15 % (12-44); MEAN CORPUSCULAR HEMOGLOBIN 33 PG (25-34); MEAN CORPUSCULAR HGB CONC 32 G/DL (32-36); MEAN CORPUSCULAR VOLUME 101 FL (80-99); MEAN PLATELET VOLUME 9.5 FL (7.4-10.4); MONOCYTES # (AUTO) 2.4 X 10^3 (0.0-1.0); MONOCYTES % (AUTO) 46 % (0-12); NEUTROPHILS % (AUTO) 38 % (42-75); RED CELL DISTRIBUTION WIDTH 24.3 % (10.0-14.5); WHITE BLOOD COUNT 5.1 10^3/uL (4.3-11.0)
[2020-03-08 11:01] LABS: PLATELET COUNT 10 10^3/uL (130-400)
[2020-03-08 11:19] LABS: ALANINE AMINOTRANSFERASE 25 U/L (0-55); ALBUMIN 2.9 GM/DL (3.2-4.5); ALKALINE PHOSPHATASE 188 U/L (40-136); BUN/CREATININE RATIO 33; CALCIUM 8.3 MG/DL (8.5-10.1); CARBON DIOXIDE 24 MMOL/L (21-32); CHLORIDE 102 MMOL/L (98-107); CREATININE SERUM 1.02 MG/DL (0.60-1.30); GFR ESTIMATED > 60; GLUCOSE 120 MG/DL (70-105); POTASSIUM 2.9 MMOL/L (3.6-5.0); SODIUM 138 MMOL/L (135-145); TOTAL PROTEIN 6.5 GM/DL (6.4-8.2); URIC ACID 3.5 MG/DL (2.6-7.2)
[2020-03-09] MEDS ORDERED: POSA100T2 PO (11:12)
[2020-03-09] MEDS ORDERED: ALLO300T2 PO (11:12)
[2020-03-09] MEDS ORDERED: ACYC200C PO (11:12)
[2020-03-09] MEDS ORDERED: METO50TA7 PO (11:12)
[2020-03-09] MEDS ORDERED: AMLO10TA7 PO (11:12)
[2020-03-09] MEDS ORDERED: LEVO750T9 PO (11:12)
[2020-03-09] MEDS ORDERED: TMSL.4C PO (11:12)
== END 2020-03-17 | disposition home or self-care (01) ==
LOC: ONC 10:36
PROVIDERS: ATTEND Internal Medicine Hematology & Oncology
DX: D69.6 Thrombocytopenia, unspecified (principal); D72.829 Elevated white blood cell count, unspecified; M00.9 Pyogenic arthritis, unspecified; I51.9 Heart disease, unspecified; E78.00 Pure hypercholesterolemia, unspecified; D64.9 Anemia, unspecified; Z95.5 Presence of coronary angioplasty implant and graft; Z95.1 Presence of aortocoronary bypass graft; Z93.3 Colostomy status
CPT/HCPCS: 80053; 83615; 84550; 85007; 85027; 85045; 85610; 85730; G0463; 36430; 36591; 85025; 99214

== ENCOUNTER 2020-03-08 11:18 | Inpatient (IN) | payer MEDICARE ==
[2020-03-08] VITALS (11 sets, daily range): BP systolic 94–149; BP diastolic 47–69
[~2020-03-08] VITALS: Ht 182 cm; Wt 105.4 kg
[~2020-03-08 11:18] MED LIST changes: -ACETAMINOPHEN 500 MG TAB (TYLENOL) CANCER CTR ONE; -NS IV 500 ML (CANCER CENTER) 500 ML ONE; -diphenhydrAMINE 25 MG TAB (BENADRYL) CANCER CENTER PO ONE
--- NOTE | 2020-03-08 11:19 | ED Dyspnea ---
General Stated Complaint: SOA Source of Information: Patient Exam Limitations: No Limitations History of Present Illness Date Seen by Provider: Mar 08, 2020 Time Seen by Provider: 11:19 Initial Comments 75-year-old male presents with dyspnea. 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 Patient has a history of COPD and CHF. Patient presented to the cancer center for treatment today. When he arrived his pulse ox is in the mid 60s. Patient reports even get short of breath for a week or 2. He denies any fevers or chills. He denies any increased cough. Patient reports that he hasn't left his house in over 4 weeks. He does have some bilateral lower leg edema that is chronic. Patient reports he had some chest tightness 2 days ago but none now. He denies any nausea vomiting diarrhea or other systemic complaints. Allergies and Home Medications Allergies Coded Allergies: No Known Drug Allergies (Unverified , 04/09/13) Home Medications Adalimumab 10 Mg/0.1 Ml Syringekit, 40 MG SQ UD, (Reported) Atorvastatin Calcium 40 Mg Tablet, 40 MG PO HS Prescribed by: ИРИНА CHERRY on 09/10/182010 Lisinopril 10 Mg Tablet, 10 MG PO DAILY Prescribed by: ИРИНА CHERRY on 09/10/182010 Metoprolol Succinate 25 Mg Tab.er.24h, 25 MG PO DAILY Prescribed by: ИРИНА CHERRY on 09/10/182010 Prazosin HCl 1 Mg Capsule, 2 MG PO TID, (Reported) Patient Home Medication List Home Medication List Reviewed: Yes Review of Systems Review of Systems Constitutional: No chills, No fever Respiratory: dyspnea on exertion, short of breath Cardiovascular: see HPI, edema Gastrointestinal: no symptoms reported Musculoskeletal: no symptoms reported Skin: no symptoms reported Past Qqzmgjd-Tpdzyy-Ohvfsl Hx Past Med/Social Hx: Reviewed Nursing Past Med/Soc Hx Patient Social History Type Used: Cigarettes Former Smoker, Quit: Aug 26, 1998 2nd Hand Smoke Exposure: No Recent Hopitalizations: Yes (CABG 08-29-18) Immunizations Up To Date Tetanus Booster (TDap): More than 5yrs Date of Pneumonia Vaccine: Sep 19, 2012 Seasonal Allergies Seasonal Allergies: Yes Past Medical History Surgeries: Yes (COLECTOMY, COLOSTOMY REVERSAL, HERNIA) CABG Respiratory: No Currently Using CPAP: No Currently Using BIPAP: No Cardiac: Yes Atrial Fibrillation, Coronary Artery Disease Neurological: No Reproductive Disorders: No Genitourinary: No Gastrointestinal: Yes (COLOSTOMY REVERSAL) Diverticulosis Musculoskeletal: Yes (ARTHRITIS IN HANDS) Arthritis, Fractures Endocrine: No Cataract Loss of Vision: Denies Hearing Impairment: Denies Cancer: No Psychosocial: No Integumentary: Yes (Rosacea) Blood Disorders: No Adverse Reaction/Blood Tranf: No Family Medical History Cardiovascular disease 19 FATHER G8 SISTER Physical Exam Vital Signs Vital Signs - First Documented 03/08/20 11:44 Temp 36.4 Pulse 99 Resp 34 B/P (MAP) 149/69 (95) Pulse Ox 84 O2 Delivery Non Rebreather O2 Flow Rate 6.00 Capillary Refill : Height, Weight, BMI Height: 6'0.00" Weight: 257lbs. 0.0oz. 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 Norm as Tested Skin: Normal Color, Warm/Dry Progress/Results/Core Measures Results/Orders Lab Results Laboratory Tests Test 03/08/20 11:32 03/08/20 12:00 Range/Units White Blood Count 5.4 4.3-11.0 10^3/uL Red Blood Count 2.40 L 4.35-5.85 10^6/uL Hemoglobin 7.7 L 13.3-17.7 G/DL Hematocrit 24 L 40-54 % Mean Corpuscular Volume 101 H 80-99 FL Mean Corpuscular Hemoglobin 32 25-34 PG Mean Corpuscular Hemoglobin Concent 32 32-36 G/DL Red Cell Distribution Width 24.3 H 10.0-14.5 % Platelet Count 12 *L 130-400 10^3/uL Mean Platelet Volume 11.9 H 7.4-10.4 FL Neutrophils (%) (Auto) 39 L 42-75 % Lymphocytes (%) (Auto) 14 12-44 % Monocytes (%) (Auto) 46 H 0-12 % Eosinophils (%) (Auto) 1 0-10 % Basophils (%) (Auto) 0 0-10 % Neutrophils # (Auto) 2.1 1.8-7.8 X 10^3 Lymphocytes # (Auto) 0.8 L 1.0-4.0 X 10^3 Monocytes # (Auto) 2.5 H 0.0-1.0 X 10^3 Eosinophils # (Auto) 0.0 0.0-0.3 10^3/uL Basophils # (Auto) 0.0 0.0-0.1 10^3/uL Neutrophils % (Manual) 48 % Lymphocytes % (Manual) 20 % Monocytes % (Manual) 31 % Eosinophils % (Manual) 1 % Basophils % (Manual) 0 % Band Neutrophils 0 % Anisocytosis MODERATE Macrocytosis SLIGHT Sodium Level 136 135-145 MMOL/L Potassium Level 3.0 L 3.6-5.0 MMOL/L Chloride Level 101 98-107 MMOL/L Carbon Dioxide Level 21 21-32 MMOL/L Anion Gap 14 5-14 MMOL/L Blood Urea Nitrogen 34 H 7-18 MG/DL Creatinine 0.99 0.60-1.30 MG/DL Estimat Glomerular Filtration Rate > 60 BUN/Creatinine Ratio 34 Glucose Level 106 H 70-105 MG/DL Calcium Level 8.4 L 8.5-10.1 MG/DL Corrected Calcium 9.2 8.5-10.1 MG/DL Total Bilirubin 3.1 H 0.1-1.0 MG/DL Aspartate Amino Transf (AST/SGOT) 35 H 5-34 U/L Alanine Aminotransferase (ALT/SGPT) 25 0-55 U/L Alkaline Phosphatase 175 H 40-136 U/L Troponin I 0.271 H <0.028 NG/ML B-Type Natriuretic Peptide 359.6 H <100.0 PG/ML Total Protein 6.7 6.4-8.2 GM/DL Albumin 3.0 L 3.2-4.5 GM/DL Blood Gas Puncture Site LEFT RADIAL Blood Gas Patient Temperature 36.7 Arterial Blood pH 7.55 H 7.37-7.43 Arterial Blood Partial Pressure CO2 29 L 35-45 MMHG Arterial Blood Partial Pressure O2 115 H 79-93 MMHG Arterial Blood HCO3 25 23-27 MMOL/L Arterial Blood Total CO2 25.6 21.0-31.0 MMOL/L Arterial Blood Oxygen Saturation 101 H 94-100 % Arterial Blood Base Excess 2.2 -2.5-2.5 MMOL/L Bill Test POSITIVE Blood Gas Ventilator Setting NO Blood Gas Inspired Oxygen 70% My Orders Orders - DAY,SONJA L DO Albuterol/Ipra Inhalation Soln (Duoneb I (03/08/20 11:30) Dexamethasone Injection (Decadron Inject (03/08/20 11:30) Svn Small Volume Nebulizer (03/08/20 11:26) Nitroglycerin 0.4 Mg Btl 25's (Nitrostat (03/08/20 11:30) BNP (03/08/20 11:26) Cbc With Automated Diff (03/08/20 11:26) Comprehensive Metabolic Panel (03/08/20 11:26) Troponin I (03/08/20 11:26) Arterial Blood Gas (03/08/20 11:48) Bipap (Bilevel) Set Up (03/08/20 11:48) Manual Differential (03/08/20 11:32) Lorazepam Injection (Ativan Injection) (03/08/20 12:15) Chest 1 View, Ap/Pa Only (03/08/20 12:40) Levofloxacin 750 Mg/150 Ml Iv (Levaquin (03/08/20 13:15) Medications Given in ED Current Medications Medications Dose Ordered Sig/Ming Route Start Time Stop Time Status Last Admin Dose Admin Albuterol/ Ipratropium 3 ml ONCE ONCE INH 03/08/20 11:30 03/08/20 11:31 DC 03/08/20 12:07 3 ML Dexamethasone Sodium Phosphate 10 mg ONCE ONCE IV 03/08/20 11:30 03/08/20 11:31 DC 03/08/20 11:40 10 MG Lorazepam 0.5 mg ONCE ONCE IVP 03/08/20 12:15 03/08/20 12:16 DC 03/08/20 12:50 0.5 MG Nitroglycerin 0.4 mg UD PRN SL 03/08/20 11:30 03/08/20 11:41 0.4 MG Vital Signs/I&O 03/08/20 03/08/20 11:44 12:08 Temp 36.4 Pulse 99 83 Resp 34 40 B/P (MAP) 149/69 (95) Pulse Ox 84 O2 Delivery Non Rebreather O2 Flow Rate 6.00 Progress Progress Note : Time: 13:13 Progress Note Patient with increased bilateral infiltrates. Patient doing well on BiPAP. Discussed with Dr. Miramontes we will admit him to the ICU on BiPAP. He was given Levaquin 750 mg IV here in the ER. Patient is admitted in stable condition. Departure Impression Primary Impression: Pneumonia Qualified Codes: J18.1 - Lobar pneumonia, unspecified organism Disposition: ADMITTED INPATIENT Condition: Stable Admissions Decision to Admit Reason: Admit from ER (General) Decision to Admit/Date: Mar 08, 2020 Time/Decision to Admit Time: 13:05 Departure-Patient Inst. Referrals: AISSATOU MIRAMONTES MD (PCP/Family) Primary Care Physician SONJA DAY DO Mar 08, 2020 11:19
[2020-03-08] MEDS ORDERED: DEXAMETHASONE 10 MG/ML (DECADRON) 1 ML VIAL IV ONE (11:30)
[2020-03-08] MEDS ORDERED: NITROGLYCERIN 0.4 MG SL TABS BTL 25'S SL PRN (11:30)
[2020-03-08] MEDS ORDERED: RT-ALBUTEROL/IPRATROPIUM 3 ML (DUONEB) VIAL INH ONE (11:30)
[2020-03-08 11:42] LABS: BASOPHILS % (AUTO) 0 % (0-10); EOSINOPHILS % (AUTO) 1 % (0-10); HEMATOCRIT 24 % (40-54); HEMOGLOBIN 7.7 G/DL (13.3-17.7); LYMPHOCYTES # (AUTO) 0.8 X 10^3 (1.0-4.0); LYMPHOCYTES % (AUTO) 14 % (12-44); MEAN CORPUSCULAR HEMOGLOBIN 32 PG (25-34); MEAN CORPUSCULAR HGB CONC 32 G/DL (32-36); MEAN CORPUSCULAR VOLUME 101 FL (80-99); MEAN PLATELET VOLUME 11.9 FL (7.4-10.4); MONOCYTES # (AUTO) 2.5 X 10^3 (0.0-1.0); MONOCYTES % (AUTO) 46 % (0-12); NEUTROPHILS # (AUTO) 2.1 X 10^3 (1.8-7.8); NEUTROPHILS % (AUTO) 39 % (42-75); RED CELL DISTRIBUTION WIDTH 24.3 % (10.0-14.5); WHITE BLOOD COUNT 5.4 10^3/uL (4.3-11.0)
[2020-03-08 11:50] LABS: PLATELET COUNT 12 10^3/uL (130-400)
[2020-03-08 11:57] LABS: CHLORIDE 101 MMOL/L (98-107); SODIUM 136 MMOL/L (135-145)
[2020-03-08 11:58] LABS: CALCIUM 8.4 MG/DL (8.5-10.1)
[2020-03-08 11:59] LABS: GLUCOSE 106 MG/DL (70-105); TOTAL PROTEIN 6.7 GM/DL (6.4-8.2)
[2020-03-08 12:00] LABS: CARBON DIOXIDE 21 MMOL/L (21-32)
[2020-03-08 12:01] LABS: BILIRUBIN,TOTAL 3.1 MG/DL (0.1-1.0)
[2020-03-08 12:03] LABS: ALKALINE PHOSPHATASE 175 U/L (40-136); CREATININE SERUM 0.99 MG/DL (0.60-1.30); GFR ESTIMATED > 60
[2020-03-08 12:04] LABS: BUN/CREATININE RATIO 34
[2020-03-08 12:06] LABS: ALANINE AMINOTRANSFERASE 25 U/L (0-55)
[2020-03-08 12:10] LABS: ABG BASE EXCESS 2.2 MMOL/L (-2.5-2.5); ABG OXYGEN SATURATION 101 % (94-100); ABG PCO2 29 MMHG (35-45); ABG PH 7.55 (7.37-7.43); ABG PO2 115 MMHG (79-93); ABG TCO2 25.6 MMOL/L (21.0-31.0)
[2020-03-08 12:11] LABS: ALLENS TEST POSITIVE; INSPIRED O2 70%; PATIENT TEMP 36.7; VENTILATOR NO
[2020-03-08] MEDS ORDERED: LORazepam INJ 2 MG/ML (ATIVAN) VIAL IVP ONE (12:15)
[2020-03-08 12:18] LABS: ANISOCYTOSIS MODERATE; BAND NEUTROPHILS 0 %; BASOPHILS % (MANUAL) 0 %; EOSINOPHILS % (MANUAL) 1 %; LYMPHOCYTES % (MANUAL) 20 %; MONOCYTES % (MANUAL) 31 %; NEUTROPHILS % (MANUAL) 48 %
--- NOTE | 2020-03-08 12:52 | Diagnostic Imaging Report ---
INDICATION: Shortness of breath. Frontal chest obtained at 1242 p.m. Comparison made to 05/07/2019 There is cardiomegaly with central vascular congestion. There are extensive new infiltrates in the midlung and base on both sides. There is no pneumothorax or pleural fluid. IMPRESSION: Cardiomegaly and mild central vascular prominence. There are extensive new infiltrates in the midlung and base on both sides when compared to 05/07/2019. Dictated by: Dictated on workstation # [id number]
[2020-03-08] MEDS ORDERED: LEVOFLOXACIN 750 MG/150 ML IV 150 ML IV ONE (13:15)
[2020-03-08] MEDS ORDERED: CATHETER FLUSH 10 ML SYR IV PRN (14:30)
--- OUTSIDE RECORDS SUMMARY | 2020-03-08 14:39 | XMS REPORT | Clinical Summary ---
Author Author [facility] Organization [facility] Address Unknown Phone Unavailable Care Team Providers Care Family Resource Management Specialist Name Role Phone Deny Chilel MD PCP Source Comments Some departments are not documenting in the electronic medical record. If you d o not see the information that you expected, contact Release of Information in [facility] [employer] Information Management department at [phone] for further assistan ce in locating additional records.[facility] Allergies No Known Allergies Medications End Date Status Medication Sig Dispensed Refills Start Date Active fexofenadine (LARISSA) Take 180 mg 0 180 mg tablet by mouth daily. Active clobetasoL (TEMOVATE) Apply 0 0.05 % topical solution topically to affected area twice daily. Active ketoconazole (NIZORAL) 2 Apply 0 % topical shampoo topically to affected area twice weekly. Apply topically to affected area of damp skin, lather, leave on 5 minutes, and rinse. Repeat Active amLODIPine (NORVASC) 5 mg Take one 90 tablet 3 tablet tablet by 0 mouth daily. Active levoFLOXacin (LEVAQUIN) Take one 30 tablet 3 750 mg tabletIndications: tablet by 0 BMT Prophylaxis per mouth every Algorithm 24 hours. Indications: BMT Prophylaxis per Algorithm Active acyclovir (ZOVIRAX) 800 Take one 60 tablet mg tablet tablet by 0 mouth every 12 hours. Active allopurinoL (ZYLOPRIM) Take one 10 tablet 0 300 mg tablet tablet by 0 mouth daily. Take with food. Active posaconazole EC (NOXAFIL) Take three 90 tablet 3 100 mg tablet tablets by 0 mouth daily with breakfast. Active tamsulosin (FLOMAX) 0.4 Take one 30 capsule 3 mg capsule capsule by 0 mouth daily after breakfast. Do not crush, chew or open capsules. Take 30 minutes following the same meal each day. Active adalimumab (CF) (HUMIRA Inject 0.4 mL 0.8 mL 0 PEN) 40 mg/0.4 mL under the 0 injection PEN kit skin every 14 days. Hold while on chemotherapy. Active metoprolol XL (TOPROL XL) Take one 90 tablet 0 25 mg extended release tablet by 0 tablet mouth daily. 02/09/2020 Discontinued venetoclax (VENCLEXTA) Take two 30 tablet 0 100 mg tabletIndications: tablets by 0 Acute myeloid leukemia mouth daily. not having achieved Take with remission (HCC) food. 02/17/2020 Discontinued (Other) venetoclax (VENCLEXTA) Take two 60 tablet 0 100 mg tabletIndications: tablets by 0 Acute myeloid leukemia mouth daily. not having achieved Take with remission (HCC) food. 02/23/2020 Discontinued (Reorder) adalimumab (CF) (HUMIRA Inject 40 mg 0 PEN) 40 mg/0.4 mL under the injection PEN kit skin every 14 days. 02/23/2020 Discontinued lisinopriL (ZESTRIL) 20 Take 10 mg by 0 mg tablet mouth every morning. 02/23/2020 Discontinued metoprolol XL (TOPROL XL) Take 25 mg by 0 50 mg extended release mouth daily. tablet 02/23/2020 Discontinued atorvastatin (LIPITOR) 80 Take 40 mg by 0 mg tablet mouth at bedtime daily. 02/23/2020 Discontinued prazosin (MINIPRESS) 2 mg Take 2 mg by 0 capsule mouth at bedtime daily. 02/20/2020 Discontinued (Reorder) acyclovir (ZOVIRAX) 800 Take one 60 tablet 3 mg tablet tablet by 0 mouth every 12 hours. 02/20/2020 Discontinued (Reorder) allopurinoL (ZYLOPRIM) Take one 10 tablet 0 300 mg tablet tablet by 0 mouth daily. Take with food. 02/23/2020 Discontinued metoprolol tartrate Take one-half 30 tablet 3 04/0 (LOPRESSOR) 25 mg tablet tablet by 0 mouth twice daily. 02/20/2020 Discontinued (Reorder) tamsulosin (FLOMAX) 0.4 Take one 30 capsule 3 mg capsule capsule by 0 mouth daily after breakfast. Do not crush, chew or open capsules. Take 30 minutes following the same meal each day. 02/20/2020 Discontinued fluconazole (DIFLUCAN) Take two 60 tablet 3 200 mg tablet tablets by 0 mouth daily. 02/20/2020 Discontinued posaconazole EC (NOXAFIL) Take three 90 tablet 3 100 mg tablet tablets by 0 mouth daily with breakfast. 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) (Primary Dx) 02/08/2020 Hosp Documentation Only Varun Darden, Male, MD Zohra Blum Tara, MD Paroxysmal A-fib (HCC) 02/06/2020 Hospital Hematology and Onco logy - Encounter 02/23/2020 from Last 3 Months Family History Medical History Relation Name Comments Heart Disease Brother Cancer Sister Relation Name Status Comments Brother Father Alive Mother Sister Social History Date Tobacco Use Types Packs/Day Years Used Quit: 02/08/1987 Former Smoker Cigarettes 3 30 Smokeless Tobacco: Never Used Tobacco Cessation: Counseling Given: No Drinks/Week oz/Week Comments Alcohol Use Not Currently Sex Assigned at Date Recorded Male 02/09/2020 3:55 PM CDT Industry Job Start Date Occupation Not on file Not on file Not on file Travel End Travel History Travel Start No recent travel history available. Last Filed Vital Signs Reading Time Taken Comments Vital Sign 131/56 02/23/2020 11:34 AM CDT Blood Pressure 78 02/23/2020 11:34 AM CDT Pulse 36.9 C (98.4 F) 02/23/2020 11:34 AM CDT Temperature - - Respiratory Rate 96% 02/23/2020 11:34 AM CDT Oxygen Saturation - - Inhaled Oxygen Concentration 115.2 kg (253 lb 15.5 oz) 02/23/2020 1:58 AM CDT Weight 182.9 cm (6' 0.01") 02/12/2020 2:55 AM CDT Height 34.44 02/12/2020 2:55 AM CDT Body Mass Index Plan of Treatment Health Maintenance Due Date Last Done Comments MEDICARE ANNUAL WELLNESS 1945 VISIT DTAP/TDAP VACCINES (1 - 1961 Tdap) HEPATITIS C SCREENING 1961 PHYSICAL (COMPREHENSIVE) 1961 EXAM SHINGLES RECOMBINANT 1993 VACCINE (1 of 2) PNEUMONIA (PCV13/PPSV23) 2008 VACCINES (1 of 2 - PCV13) INFLUENZA VACCINE 06/19/2020 Goals Goal Patient Associated Recent Progress Patient-Stat Aut hor Goal Type Problems ed? GOAL General No Alivia Limon RN Note: Stay healthy Implants Device Identifier Shelf Expiration Date Model / Serial / L ot Implanted Type Area Manufactur er Heart Monitor Procedures Comments Procedure Name Priority Date/Time Associated Diag nosis TRANSFUSE RBC'S Routine 02/23/2020 9:19 AM CDT HC ABO GROUP Routine 02/23/2020 2:54 AM CDT HC PHOSPHOROUS, SERUM Routine 02/23/2020 2:00 AM CDT HC CBC W AUTOMATED DIFF Routine 02/23/2020 (HPDCT) 2:00 AM CDT HC COMPREHENSIVE Routine 02/23/2020 METABOLIC PANEL (CH12CT) 2:00 AM CDT TRANSFUSE APHERESIS Routine 02/22/2020 PLATELETS 8:21 AM CDT PREPARE APHERESIS Routine 02/22/2020 PLATELETS 3:02 AM CDT HC PHOSPHOROUS, SERUM Routine 02/22/2020 2:14 AM CDT HC CBC W AUTOMATED DIFF Routine 02/22/2020 (HPDCT) 2:14 AM CDT HC COMPREHENSIVE Routine 02/22/2020 METABOLIC PANEL (CH12CT) 2:14 AM CDT HC BILIRUBIN DIRECT Add on 02/21/2020 2:04 AM CDT HC PHOSPHOROUS, SERUM Routine 02/21/2020 2:04 AM CDT HC CBC W AUTOMATED DIFF Routine 02/21/2020 (HPDCT) 2:04 AM CDT HC COMPREHENSIVE Routine 02/21/2020 METABOLIC PANEL (CH12CT) 2:04 AM CDT US ABDOMEN COMPLETE Routine 02/20/2020 1:40 PM CDT TRANSFUSE RBC'S Routine 02/20/2020 9:53 AM CDT HC CBC W AUTOMATED DIFF Routine 02/20/2020 (HPDCT) 2:05 AM CDT HC PHOSPHOROUS, SERUM Routine 02/20/2020 (PO4CT) 2:05 AM CDT HC COMPREHENSIVE Routine 02/20/2020 METABOLIC PANEL (CH12CT) 2:05 AM CDT TRANSFUSE APHERESIS Routine 02/19/2020 PLATELETS 8:45 AM CDT PREPARE APHERESIS Routine 02/19/2020 PLATELETS 3:05 AM CDT HC URIC ACID Routine 02/19/2020 2:00 AM CDT HC CBC W AUTOMATED DIFF Routine 02/19/2020 (HPDCT) 2:00 AM CDT HC PHOSPHOROUS, SERUM Routine 02/19/2020 (PO4CT) 2:00 AM CDT HC COMPREHENSIVE Routine 02/19/2020 METABOLIC PANEL (CH12CT) 2:00 AM CDT [facility] [place] REFERENCE TEST Specimen 02/18/2020 in Lab 10:49 AM CDT HC RVP PANEL NASAL SINGLE Routine 02/18/2020 RVPN 10:49 AM CDT HC PNEU JIROVECI QT Routine 02/18/2020 PCR(PJPQT) 10:49 AM CDT HC ASPERGILLUS Routine 02/18/2020 GALACTOMANNAN AG 10:49 AM CDT HC HSV PCR Routine 02/18/2020 10:49 AM CDT HC CMV DNA QN BY PCR Routine 02/18/2020 10:49 AM CDT COVID-19 (SARS-COV-2) PCR Specimen 02/18/2020 in Lab 10:49 AM CDT HC GRAM STAIN 02/18/2020 10:49 AM CDT HC CULTURE-FUNGAL; OTHER Routine 02/18/2020 10:49 AM CDT HC CULTURE-TB DIRECT Routine 02/18/2020 10:49 AM CDT HC CULTURE-LOWER RESP Routine 02/18/2020 10:49 AM CDT HC SPECIAL STAINS #1 Routine 02/18/2020 (PATHOLOGY) 10:45 AM CDT BRONCHOSCOPY 02/18/2020 10:29 AM CDT BRONCHOSCOPY WITH 02/18/2020 Acute myeloid [facility]uther BRONCHIAL ALVEOLAR LAVAGE 10:28 AM CDT not having achieved - FLEXIBLE remission (HCC) Pneumonia of both lungs due to infectious organism, unspecified part of lung TRANSFUSE APHERESIS Routine 02/18/2020 PLATELETS 7:46 AM CDT PREPARE APHERESIS Routine 02/18/2020 PLATELETS 2:43 AM CDT HC CBC W AUTOMATED DIFF Routine 02/18/2020 (HPDCT) 2:10 AM CDT HC PHOSPHOROUS, SERUM Routine 02/18/2020 (PO4CT) 2:10 AM CDT HC COMPREHENSIVE Routine 02/18/2020 METABOLIC PANEL (CH12CT) 2:10 AM CDT HC PHOSPHOROUS, SERUM Routine 02/17/2020 (PO4CT) 3:43 PM CDT TRANSFUSE RBC'S Routine 02/17/2020 10:03 AM CDT NE CONSLTJ&REPRT SLIDES 02/17/2020 PREPARED ELSEWHERE 7:37 AM CDT HC ABO GROUP Routine 02/17/2020 4:27 AM CDT HC CBC W AUTOMATED DIFF Routine 02/17/2020 (HPDCT) 2:22 AM CDT HC PHOSPHOROUS, SERUM Routine 02/17/2020 (PO4CT) 2:22 AM CDT HC COMPREHENSIVE Routine 02/17/2020 METABOLIC PANEL (CH12CT) 2:22 AM CDT HC PHOSPHOROUS, SERUM Routine 02/16/2020 (PO4CT) 4:22 PM CDT TRANSFUSE APHERESIS Routine 02/16/2020 PLATELETS 6:28 AM CDT PREPARE APHERESIS Routine 02/16/2020 PLATELETS 4:29 AM CDT HC CBC W AUTOMATED DIFF Routine 02/16/2020 (HPDCT) 3:40 AM CDT HC PHOSPHOROUS, SERUM Routine 02/16/2020 (PO4CT) 3:40 AM CDT HC COMPREHENSIVE Routine 02/16/2020 METABOLIC PANEL (CH12CT) 3:40 AM CDT HC VRE SCREEN Routine 02/16/2020 3:40 AM CDT HC RVP PANEL NASAL SINGLE 02/15/2020 RVPN 2:50 PM CDT HC PHOSPHOROUS, SERUM Routine 02/15/2020 (PO4CT) 2:50 PM CDT COVID-19 (SARS-COV-2) PCR STAT 02/15/2020 2:50 PM CDT HC ASPERGILLUS Routine 02/15/2020 GALACTOMANNAN AG 12:35 PM CDT HC FUNGITELL (FUNGT) Routine 02/15/2020 12:[address] CHEST WO CONTRAST ORTEGA 02/15/2020 12:25 PM CDT CHEST SINGLE VIEW Routine 02/15/2020 9:10 AM CDT TRANSFUSE APHERESIS Routine 02/15/2020 PLATELETS 5:58 AM CDT PREPARE APHERESIS Routine 02/15/2020 PLATELETS 4:14 AM CDT HC CBC W AUTOMATED DIFF Routine 02/15/2020 (HPDCT) 3:10 AM CDT HC PHOSPHOROUS, SERUM Routine 02/15/2020 (PO4CT) 3:10 AM CDT HC COMPREHENSIVE Routine 02/15/2020 METABOLIC PANEL (CH12CT) 3:10 AM CDT HC PHOSPHOROUS, SERUM Routine 02/14/2020 (PO4CT) 4:53 PM CDT HC CBC W AUTOMATED DIFF Routine 02/14/2020 (HPDCT) 3:16 AM CDT HC PHOSPHOROUS, SERUM Routine 02/14/2020 (PO4CT) 3:16 AM CDT HC COMPREHENSIVE Routine 02/14/2020 METABOLIC PANEL (CH12CT) 3:16 AM CDT HC PHOSPHOROUS, SERUM Routine 02/13/2020 (PO4CT) 4:45 PM CDT TRANSFUSE APHERESIS Routine 02/13/2020 PLATELETS 6:54 AM CDT HC GRAM STAIN 02/13/2020 6:36 AM CDT HC CULTURE-LOWER RESP Routine 02/13/2020 6:36 AM CDT PREPARE APHERESIS Routine 02/13/2020 PLATELETS 5:16 AM CDT HC CBC W AUTOMATED DIFF Routine 02/13/2020 (HPDCT) 4:40 AM CDT HC MAGNESIUM Routine 02/13/2020 4:40 AM CDT HC PHOSPHOROUS, SERUM Routine 02/13/2020 (PO4CT) 4:40 AM CDT HC COMPREHENSIVE Routine 02/13/2020 METABOLIC PANEL (CH12CT) 4:40 AM CDT HC PHOSPHOROUS, SERUM Routine 02/12/2020 (PO4CT) 4:00 PM CDT TRANSFUSE RBC'S Routine 02/12/2020 9:48 AM CDT HC MAGNESIUM Routine 02/12/2020 4:00 AM CDT HC URIC ACID Routine 02/12/2020 4:00 AM CDT HC PTT(APTT) Routine 02/12/2020 4:00 AM CDT HC PT(INR) Routine 02/12/2020 4:00 AM CDT HC PHOSPHOROUS, SERUM Routine 02/12/2020 (PO4CT) 4:00 AM CDT HC LD(LDH;LACTIC Routine 02/12/2020 DEHYDROGENASE) 4:00 AM CDT HC FIBRINOGEN Routine 02/12/2020 4:00 AM CDT HC CBC W AUTOMATED DIFF Routine 02/12/2020 (HPDCT) 4:00 AM CDT HC COMPREHENSIVE Routine 02/12/2020 METABOLIC PANEL (CH12CT) 4:00 AM CDT TRANSFUSE APHERESIS Routine 02/12/2020 PLATELETS 1:39 AM CDT PREPARE APHERESIS Routine 02/11/2020 PLATELETS 8:31 PM CDT HC URIC ACID Routine 02/11/2020 4:00 PM CDT HC PTT(APTT) Routine 02/11/2020 4:00 PM CDT HC PT(INR) Routine 02/11/2020 4:00 PM CDT HC PHOSPHOROUS, SERUM Routine 02/11/2020 (PO4CT) 4:00 PM CDT HC FIBRINOGEN Routine 02/11/2020 4:00 PM CDT HC CBC W AUTOMATED DIFF Routine 02/11/2020 (HPDCT) 4:00 PM CDT HC BASIC METABOLIC PANEL Routine 02/11/2020 (CH7CT) 4:00 PM CDT HC MAGNESIUM Routine 02/11/2020 2:45 AM CDT HC URIC ACID Routine 02/11/2020 2:45 AM CDT HC PTT(APTT) Routine 02/11/2020 2:45 AM CDT HC PT(INR) Routine 02/11/2020 2:45 AM CDT HC PHOSPHOROUS, SERUM Routine 02/11/2020 (PO4CT) 2:45 AM CDT HC LD(LDH;LACTIC Routine 02/11/2020 DEHYDROGENASE) 2:45 AM CDT HC FIBRINOGEN Routine 02/11/2020 2:45 AM CDT HC CBC W AUTOMATED DIFF Routine 02/11/2020 (HPDCT) 2:45 AM CDT HC COMPREHENSIVE Routine 02/11/2020 METABOLIC PANEL (CH12CT) 2:45 AM CDT TRANSFUSE RBC'S Routine 02/11/2020 1:08 AM CDT TRANSFUSE APHERESIS Routine 02/10/2020 PLATELETS 8:53 PM CDT HC ABO GROUP Routine 02/10/2020 6:27 PM CDT PREPARE APHERESIS Routine 02/10/2020 PLATELETS 5:49 PM CDT HC URIC ACID Routine 02/10/2020 4:24 PM CDT HC PTT(APTT) Routine 02/10/2020 4:24 PM CDT HC PT(INR) Routine 02/10/2020 4:24 PM CDT HC PHOSPHOROUS, SERUM Routine 02/10/2020 (PO4CT) 4:24 PM CDT HC FIBRINOGEN Routine 02/10/2020 4:24 PM CDT HC CBC W AUTOMATED DIFF Routine 02/10/2020 (HPDCT) 4:24 PM CDT HC BASIC METABOLIC PANEL Routine 02/10/2020 (CH7CT) 4:24 PM CDT COVID-19 (SARS-COV-2) PCR Routine 02/10/2020 11:58 AM CDT HC MAGNESIUM Routine 02/10/2020 2:40 AM CDT HC URIC ACID Routine 02/10/2020 2:40 AM CDT HC PTT(APTT) Routine 02/10/2020 2:40 AM CDT HC PT(INR) Routine 02/10/2020 2:40 AM CDT HC PHOSPHOROUS, SERUM Routine 02/10/2020 (PO4CT) 2:40 AM CDT HC LD(LDH;LACTIC Routine 02/10/2020 DEHYDROGENASE) 2:40 AM CDT HC FIBRINOGEN Routine 02/10/2020 2:40 AM CDT HC CBC W AUTOMATED DIFF Routine 02/10/2020 (HPDCT) 2:40 AM CDT HC COMPREHENSIVE Routine 02/10/2020 METABOLIC PANEL (CH12CT) 2:40 AM CDT TRANSFUSE APHERESIS Routine 02/09/2020 PLATELETS 6:22 PM CDT PREPARE APHERESIS Routine 02/09/2020 PLATELETS 5:59 PM CDT CULTURE-BLOOD Routine 02/09/2020 W/SENSITIVITY 5:23 PM CDT HC URIC ACID Routine 02/09/2020 4:19 PM CDT HC PTT(APTT) Routine 02/09/2020 4:19 PM CDT HC PT(INR) Routine 02/09/2020 4:19 PM CDT HC PHOSPHOROUS, SERUM Routine 02/09/2020 (PO4CT) 4:19 PM CDT HC FIBRINOGEN Routine 02/09/2020 4:19 PM CDT HC CBC W AUTOMATED DIFF Routine 02/09/2020 (HPDCT) 4:19 PM CDT HC BASIC METABOLIC PANEL Routine 02/09/2020 (CH7CT) 4:19 PM CDT CULTURE-BLOOD Routine 02/09/2020 W/SENSITIVITY 4:19 PM CDT HC CULTURE-BLOOD Routine 02/09/2020 4:19 PM CDT 2-D + DOPPLER Routine 02/09/2020 ECHOCARDIOGRAM 2:54 PM CDT ABDOMEN AP ONLY ORTEGA 02/09/2020 8:45 AM CDT HC VRE SCREEN Routine 02/09/2020 7:34 AM CDT HC MAGNESIUM Routine 02/09/2020 2:12 AM CDT HC URIC ACID Routine 02/09/2020 2:12 AM CDT HC PTT(APTT) Routine 02/09/2020 2:12 AM CDT HC PT(INR) Routine 02/09/2020 2:12 AM CDT HC PHOSPHOROUS, SERUM Routine 02/09/2020 (PO4CT) 2:12 AM CDT HC LD(LDH;LACTIC Routine 02/09/2020 DEHYDROGENASE) 2:12 AM CDT HC FIBRINOGEN Routine 02/09/2020 2:12 AM CDT HC CBC W AUTOMATED DIFF Routine 02/09/2020 (HPDCT) 2:12 AM CDT HC COMPREHENSIVE Routine 02/09/2020 METABOLIC PANEL (CH12CT) 2:12 AM CDT HC URIC ACID Routine 02/08/2020 3:42 PM CDT HC PTT(APTT) Routine 02/08/2020 3:42 PM CDT HC PT(INR) Routine 02/08/2020 3:42 PM CDT HC PHOSPHOROUS, SERUM Routine 02/08/2020 (PO4CT) 3:42 PM CDT HC FIBRINOGEN Routine 02/08/2020 3:42 PM CDT HC CBC W AUTOMATED DIFF Routine 02/08/2020 (HPDCT) 3:42 PM CDT HC BASIC METABOLIC PANEL Routine 02/08/2020 (CH7CT) 3:42 PM CDT TRANSFUSE APHERESIS Routine 02/08/2020 PLATELETS 8:48 AM CDT CHEST SINGLE VIEW ORTEGA 02/08/2020 6:44 AM CDT HC MAGNESIUM Add on 02/08/2020 6:20 AM CDT HC TROPONIN-I Routine 02/08/2020 6:20 AM CDT PREPARE APHERESIS Routine 02/08/2020 PLATELETS 3:41 AM CDT ECG 12-LEAD Routine 02/08/2020 3:00 AM CDT TROPONIN-I Add on 02/08/2020 2:34 AM CDT HC URIC ACID Routine 02/08/2020 2:34 AM CDT HC PTT(APTT) Routine 02/08/2020 2:34 AM CDT HC PT(INR) Routine 02/08/2020 2:34 AM CDT HC PHOSPHOROUS, SERUM Routine 02/08/2020 (PO4CT) 2:34 AM CDT HC LD(LDH;LACTIC Routine 02/08/2020 DEHYDROGENASE) 2:34 AM CDT HC FIBRINOGEN Routine 02/08/2020 2:34 AM CDT HC CBC W AUTOMATED DIFF Routine 02/08/2020 (HPDCT) 2:34 AM CDT HC COMPREHENSIVE Routine 02/08/2020 METABOLIC PANEL (CH12CT) 2:34 AM CDT TRANSFUSE RBC'S Routine 02/08/2020 2:14 AM CDT ECG 12-LEAD STAT 02/08/2020 2:10 AM CDT HC B-TYPE NATRIURETIC Routine 02/08/2020 PEPTIDE 1:00 AM CDT HC TROPONIN-I Routine 02/08/2020 1:00 AM CDT HC LIPASE Routine 02/08/2020 1:00 AM CDT HC HEPATIC FUNCTION PANEL Routine 02/08/2020 1:00 AM CDT HC LACTIC ACID(LACTATE) Routine 02/08/2020 1:00 AM CDT HC URIC ACID Routine 02/07/2020 4:39 PM CDT HC PTT(APTT) Routine 02/07/2020 4:39 PM CDT HC PT(INR) Routine 02/07/2020 4:39 PM CDT HC PHOSPHOROUS, SERUM Routine 02/07/2020 (PO4CT) 4:39 PM CDT HC FIBRINOGEN Routine 02/07/2020 4:39 PM CDT HC CBC W AUTOMATED DIFF Routine 02/07/2020 (HPDCT) 4:39 PM CDT HC BASIC METABOLIC PANEL Routine 02/07/2020 (CH7CT) 4:39 PM CDT TRANSFUSE RBC'S Routine 02/07/2020 10:56 AM CDT HC URIC ACID STAT 02/07/2020 7:00 AM CDT HC COMPREHENSIVE 02/07/2020 METABOLIC PANEL (CH12CT) 6:00 AM CDT HC LD(LDH;LACTIC Routine 02/07/2020 DEHYDROGENASE) 6:00 AM CDT HC PHOSPHOROUS, SERUM Routine 02/07/2020 (PO4CT) 6:00 AM CDT HC URIC ACID Routine 02/07/2020 6:00 AM CDT HC PTT(APTT) Routine 02/07/2020 6:00 AM CDT HC PT(INR) Routine 02/07/2020 6:00 AM CDT HC FIBRINOGEN Routine 02/07/2020 6:00 AM CDT HC CBC W AUTOMATED DIFF Routine 02/07/2020 (HPDCT) 6:00 AM CDT TRANSFUSE APHERESIS Routine 02/07/2020 PLATELETS 2:36 AM CDT CONSULT IV THERAPY TEAM Routine 02/06/2020 10:06 PM CDT HC BLOOD TYPING, ABO Routine 02/06/2020 CONFIRM 91 8:42 PM CDT NE FLOW CYTOMETRY 02/06/2020 INTERPRETATION 16/> 8:03 PM CDT MARKERS HC ABO GROUP Routine 02/06/2020 8:03 PM CDT CHROMOSOMES BLD Add on 02/06/2020 HEMATOLOGIC 8:03 PM CDT NE BLOOD SMEAR PERIPHERAL Add on 02/06/2020 INTERP PHYS W/WRIT REPORT 8:03 PM CDT HC CBC W/ AUTOMATED DIFF Routine 02/06/2020 8:03 PM CDT LEUKEMIA-LYMPHOMA PANEL 02/06/2020 BLOOD 8:03 PM CDT CHROMOSOMES FISH DNA Routine 02/06/2020 PROBE-BLOOD 8:03 PM CDT HC LD(LDH;LACTIC Routine 02/06/2020 DEHYDROGENASE) 8:03 PM CDT HC PHOSPHOROUS, SERUM Routine 02/06/2020 (PO4CT) 8:03 PM CDT HC URIC ACID Routine 02/06/2020 8:03 PM CDT HC PTT(APTT) Routine 02/06/2020 8:03 PM CDT HC PT(INR) Routine 02/06/2020 8:03 PM CDT HC FIBRINOGEN Routine 02/06/2020 8:03 PM CDT HC BASIC METABOLIC PANEL Routine 02/06/2020 (CH7CT) 8:03 PM CDT PREPARE APHERESIS Routine 02/06/2020 PLATELETS 7:06 PM CDT HC VRE SCREEN Routine 02/06/2020 7:00 PM CDT PATHOLOGY REPORTS FROM 02/06/2020 OUTSIDE SCAN 12:00 AM CDT TELEMETRY STRIPS-SCAN 02/06/2020 12:00 AM CDT ECG-SCAN 02/06/2020 12:00 AM CDT PROCEDURE RECORD-SCAN 02/06/2020 12:00 AM CDT ECG-SCAN 02/06/2020 12:00 AM CDT ECG-SCAN 02/06/2020 12:00 AM CDT from Last 3 Months Results * TRANSFUSE RBC'S (02/23/2020 9:19 AM CDT) Only the most recent of 6 results within the time period is included. Specimen Blood * TYPE & CROSSMATCH (02/23/2020 2:54 AM CDT) Only the most recent of 4 results within the time period is included. Units Ordered 1 [facility] Crossmatch 02/26/2020,2359 [facility] Expires Record Check FOUND [facility] ABO/RH(D) B POS [facility] Antibody Screen NEG [facility] Electronic YES [facility] Crossmatch Unit Number [id number] [facility] Blood Component RBC,ADSOL,LEUKO [facility] Type REDUCED,IRRADIATED Unit Division 0 [facility] Status OF Unit TRANSFUSED [facility] Transfusion OK TO TRANSFUSE [facility] Status Crossmatch COMPATIBLE,ELECTRONIC [facility] Result Specimen Blood Performing Organization Address City/State/Zipcode Ph one Number MAIN LAB [address] [place] [address] * COMPREHENSIVE METABOLIC PANEL CELLULAR THERAPEUTICS (02/23/2020 2:00 AM CDT) Only the most recent of 17 results within the time period is included. Sodium 135 (L) 137 - 147 MMOL/L [facility] Potassium 3.7 3.5 - 5.1 MMOL/L [facility] Chloride 103 98 - 110 MMOL/L [facility] Glucose 99 70 - 100 MG/DL [facility] Blood Urea 20 7 - 25 MG/DL [facility] Nitrogen Creatinine 1.11 0.4 - 1.24 MG/DL [facility] Calcium 8.3 (L) 8.5 - 10.6 MG/DL [facility] Total Protein 5.8 (L) 6.0 - 8.0 G/DL [facility] Total Bilirubin 1.8 (H) 0.3 - 1.2 MG/DL [facility] Albumin 2.9 (L) 3.5 - 5.0 G/DL [facility] Alk Phosphatase 164 (H) 25 - 110 U/L [facility] AST (SGOT) 20 7 - 40 U/L [facility] CO2 25 21 - 30 MMOL/L [facility] ALT (SGPT) 20 7 - 56 U/L [facility] Anion Gap 7 3 - 12 [facility] eGFR Non >60 >60 mL/min [facility] Comment: [place] The eGFR is not validated f or use in drug dosing adjustments. Continue to use estimated creatinine clearance per dosing reference text. Please contact the Clinical Pharmacist for questions. eGFR >60 >60 mL/min [facility] [place] Comment: The eGFR is not validated for use in drug dosing adjustments. Continue to use estimated creatinine clearance per dosing reference text. Please contact the Clinical Pharmacist for questions. Specimen Blood Performing Organization Address [facility] Ph one Number [facility] [address] [place] [address] * CBC AND DIFF CELLULAR THERAPEUTICS (02/23/2020 2:00 AM CDT) Only the most recent of 22 results within the time period is included. White Blood 2.0 (L) 4.5 - 11.0 K/UL [facility] Cells RBC 2.11 (L) 4.4 - 5.5 M/UL [facility] Hemoglobin 6.8 (L) 13.5 - 16.5 GM/DL [facility] Hematocrit 19.6 (L) 40 - 50 % [facility] MCV 93.0 80 - 100 FL [facility] MCH 32.1 26 - 34 PG [facility] MCHC 34.5 32.0 - 36.0 G/DL [facility] RDW 15.1 (H) 11 - 15 % [facility] Platelet Count 14 (LL)Comment: Value noted, 150 - 400 K/UL [facility] value unchanged MPV 7.0 7 - 11 FL [facility] Neutrophils 21 (L) 41 - 77 % [facility] Lymphocytes 38 24 - 44 % [facility] Monocytes 35 (H) 4 - 12 % [facility] Eosinophils 3 0 - 5 % [facility] Basophils 3 (H) 0 - 2 % [facility] Absolute 0.40 (L) 1.8 - 7.0 K/UL [facility] Neutrophil Count Absolute Lymph 0.80 (L) 1.0 - 4.8 K/UL [facility] Count Absolute 0.70 0 - 0.80 K/UL [facility] Monocyte Count Absolute 0.00 0 - 0.45 K/UL [facility] Eosinophil Count Absolute 0.10 0 - 0.20 K/UL [facility] Basophil Count Specimen Blood Performing Organization Address City/[facility] one Number [facility] [address] [place] [address] * PHOSPHORUS (02/23/2020 2:00 AM CDT) Only the most recent of 3 results within the time period is included. Phosphorus 4.3 2.0 - 4.5 MG/DL MAIN LAB Specimen Blood Performing Organization Address [facility] one Number MAIN LAB [address] [place] [address] * TRANSFUSE APHERESIS PLATELETS (02/22/2020 8:21 AM CDT) Only the most recent of 7 results within the time period is included. * PREPARE APHERESIS PLATELETS (02/22/2020 3:02 AM CDT) Only the most recent of 11 results within the time period is included. Units Ordered 1 MAIN LAB Unit Number [id number] MAIN LAB Blood Component APHERESIS PLT,LEUKO MAIN LAB Type REDUCED,IRRADIATED,2ND CONT . Unit Division 0 MAIN LAB Status OF Unit TRANSFUSED MAIN LAB Transfusion OK TO TRANSFUSE MAIN LAB Status Specimen Other (Specify) Performing Organization Address [facility] one Number MAIN LAB [address] [place] [address] * BILIRUBIN, DIRECT (02/21/2020 2:04 AM CDT) Bilirubin, 0.8 (H) <0.4 MG/DL MAIN LAB Direct Specimen Performing Organization Address [facility] one Number MAIN LAB [address] [place] [address] * US ABDOMEN COMPLETE (02/20/2020 1:40 PM CDT) Specimen Impressions Performed At 1. No cholelithiasis or bile duct dilatation. KU R AD RESULTS 2. Normal size liver with mild parenc hymal heterogeneity. 3. Small bilateral pleural effusions, greater on the right. Finalized by Orly Dolan M.D. on 02/20/20 2:02 PM. Dictated by Orly Dolan M.D. on 02/20/2020 1:55 PM. Narrative Performed At COMPLETE ABDOMINAL ULTRASOUND KU RAD RESULTS CLINICAL INDICATION: Male, 75 years old ; elevated bilirubin, acute monocytic leukemia. TECHNIQUE: Multiple grayscale and color Doppler ultrasound images were obtained of the abdomen. COMPARISON: CT chest 02/15/2020 FINDINGS: Liver and Biliary System: The liver i s normal in size. The liver parenchyma is mildly heterogeneous. There is a simp le benign-appearing cyst in the left lobe which measures 4.9 cm in maximum diamet er. No solid or suspicious hepatic masses are identified. There is no intrahepati c bile duct dilatation. The common duct measures 4 mm at the victoria hepatis. T he gallbladder is nondilated. No cholelithiasis or gallbladder wall thic kening. Pancreas: Predominantly obscured by bow el gas artifact. Spleen: Upper limits of normal in size measuring 12.3 cm. Kidneys: Both kidneys demonstrate incre ased cortical echogenicity. The right kidney measures 11.4 cm in length. Th e left kidney measures 12.2 cm. No hydronephrosis. There are a few simple, cortical cyst at the lower pole of the left kidney, the larger measuring 5 cm in diameter Bladder: Near completely decompressed a nd poorly evaluated. Aorta: Predominantly obscured by bowel gas artifact. IVC: Visualized portions are normal in caliber. Peritoneal Space: No abdominopelvic a scites. Small bilateral pleural effusions, greater on the right. Procedure Note Interface, Radiant Results - 02/20/2020 2:05 PM CDT COMPLETE ABDOMINAL ULTRASOUND CLINICAL INDICATION: Male, 75 years old; elevated bilirubin, acute monocytic leukemia. TECHNIQUE: Multiple grayscale and color Doppler ultrasound images were obtained of the abdomen. COMPARISON: CT chest 02/15/2020 FINDINGS: Liver and Biliary System: The liver is normal in size. The liver parenchyma is mildly heterogeneous. There is a simple benign-appearing cyst in the left lobe which measures 4.9 cm in maximum diameter. No solid or suspicious hepatic masses are identified. There is no intrahepatic bile duct dilatation. The common duct measures 4 mm at the victoria hepatis. The gallbladder is nondilated. No cholelithiasis or gallbladder wall thickening. Pancreas: Predominantly obscured by bowel gas artifact. Spleen: Upper limits of normal in size measuring 12.3 cm. Kidneys: Both kidneys demonstrate increased cortical echogenicity. The right kidney measures 11.4 cm in length. The left kidney measures 12.2 cm. No hydronephrosis. There are a few simple, cortical cyst at the lower pole of the left kidney, the larger measuring 5 cm in diameter Bladder: Near completely decompressed and poorly evaluated. Aorta: Predominantly obscured by bowel gas artifact. IVC: Visualized portions are normal in caliber. Peritoneal Space: No abdominopelvic ascites. Small bilateral pleural effusions, greater on the right. IMPRESSION 1. No cholelithiasis or bile duct dilat ation. 2. Normal size liver with mild parenchy mal heterogeneity. 3. Small bilateral pleural effusions, g reater on the right. Finalized by Orly Dolan M.D. on 02/20/2020 2:02 PM. Dictated by Orly Dolan M.D. on 02/20/2020 1:55 PM. Performing Organization Address [facility] one Number RAD RESULTS * PHOSPHORUS CELLULAR THERAPEUTICS (02/20/2020 2:05 AM CDT) Only the most recent of 26 results within the time period is included. Phosphorus 3.0 2.0 - 4.5 MG/DL MAIN LAB Specimen Blood Performing Organization Address [facility] one Number MAIN LAB [address] [place] [address] * URIC ACID (02/19/2020 2:00 AM CDT) Only the most recent of 14 results within the time period is included. Uric Acid 3.2 (L) 4.0 - 8.0 MG/DL MAIN LAB Specimen Blood Performing Organization Address [facility] one Number MAIN LAB [address] [place] [address] * COVID-19 (SARS-COV-2) PCR (02/18/2020 10:49 AM CDT) Only the most recent of 3 results within the time period is included. COVID-19 BRONCHIAL ALVEOLAR LAVAGE REFERENCE L AB (SARS-CoV-2) PCR Source COVID-19 NOT DETECTED DN-NOT DETECTED REFERENCE LAB (SARS-CoV-2) Comment: PCR . This test has been validated but FDA's independent review of the validation is pending. This test is performed as a laboratory developed test; independent review of the validation under the FDA's Emergency Use Authorization (EUA) authority will be performed according to current guidance requirements. . We will continue to follow federal and state requirements for both notification of results and any confirmatory testing that is required by another agency. . This test was developed and its performance characteristics determined by [employer] [facility] It has not been cleared or approved by the U.S. Food and Drug Administration. Results should be used in conjunction with clinical findings, and should not form the sole basis for a diagnosis or treatment decision. Testing Performed At: [employer] [address] [place] [address] CLIA ID: [id number] Specimen Performing Organization Address City/State/Zipcode Ph one Number REFERENCE LAB REFERENCE LAB See results for address. * ASPERGILLUS GALACTOMANN (02/18/2020 10:49 AM CDT) [facility] Aspergillus 0.079 REFERENCE LAB Galactomann BAL Comment: Reference range: <0.500 . Interpretation: Patients with an index value of greater than or equal to 0.5 are considered to be positive for galactomannan antigen. The Platelia(TM) Aspergillus EIA package insert also recommends a new sample be collected from the patient for follow-up testing. Patients with an index value of less than 0.5 are considered to be negative for galactomannan antigen. A negative result may indicate that the patient's result is below the detectable level of the assay. . Negative results do not rule out the diagnosis of Invasive Aspergillosis. Pursuant to the package insert, repeat testing is recommended if the result is negative, but the disease is suspected. Due to the potential for environmental contamination when transferred to pour-off tubes, which can lead to false positive results, interpret positive results from samples provided in pour-off tubes with caution. Results should be used in conjunction with clinical findings, and should not form the sole basis for a diagnosis or treatment decision. . The Platelia Aspergillus Galactomannan EIA is a product of [employer] and is FDA approved for in vitro diagnostic use. Testing Performed At: [facility] [address] [place] [address] [facility], [place] [id number] CLIA ID: [id number] Specimen Bronchial Washing RUL Performing Organization Address [facility] REFERENCE LAB REFERENCE LAB See results for address. * PJP JIROVECI QUANT PCR (02/18/2020 10:49 AM CDT) PJP Jiroveci NOT DETECTED REFERENCE LAB BAL PCR Quant Reference range: NOT DETECT ED Unit: copies/mL . Assay Range: 84 copies/mL to 1.00E+08 copies/mL . The limit of quantitation (LOQ) is 84 copies/mL. Pneumocystis jiroveci DNA detected below the LOQ will be reported as Detected:<84 copies/mL. . This test was developed and its performance characteristics determined by [employer] [facility] It has not been cleared or approved by the U.S. Food and Drug Administration. Results should be used in conjunction with clinical findings, and should not form the sole basis for a diagnosis or treatment decision. Testing Performed At: [employer] [address] [place] [address] [facility] [place], [place] [id number] CLIA ID: [id number] Specimen Bronchial Washing RUL Performing Organization Address [facility] REFERENCE LAB REFERENCE LAB See results for address. * RVP VIRAL PANEL PCR (02/18/2020 10:49 AM CDT) Only the most recent of 2 results within the time period is included. Specimen Source BRONCHIAL ALVEOLAR LAVAGE KU MAIN LAB This panel does not detect SARS-CoV-2, the etiologic agent of COVID-19. Contact Infection Control for testing of patients with suspected SARS-CoV-2 infection. This assay uses analyte specific reagents and has not been cleared by the US Food and Drug Administration. The performance characterics were determined by the [facility]. Adenovirus NOT DETECTED DN-NOT DETECTED KU MAIN LAB Coronavirus NOT DETECTED DN-NOT DETECTED MAIN LAB 229E Coronavirus NOT DETECTED DN-NOT DETECTED MAIN LAB HKU1 Coronavirus NOT DETECTED DN-NOT DETECTED MAIN LAB NL63 Coronavirus NOT DETECTED DN-NOT DETECTED MAIN LAB OC43 Human NOT DETECTED DN-NOT DETECTED MAIN LAB Metapneumovirus Human NOT DETECTED DN-NOT DETECTED MAIN LAB Rhinovirus/ENTE ROVIRUS Influenza A NOT DETECTED DN-NOT DETECTED MAIN LAB H1N1 2009 Influenza A H1 NOT DETECTED DN-NOT DETECTED MAIN LAB Influenza A H3 NOT DETECTED DN-NOT DETECTED MAIN LAB Influenza B NOT DETECTED DN-NOT DETECTED MAIN LAB Parainfluenza 1 NOT DETECTED DN-NOT DETECTED MAIN LAB Parainfluenza 2 NOT DETECTED DN-NOT DETECTED MAIN LAB Parainfluenza 3 NOT DETECTED DN-NOT DETECTED MAIN LAB Parainfluenza 4 NOT DETECTED DN-NOT DETECTED [facility] RSV NOT DETECTED DN-NOT DETECTED MAIN LAB Bordetella NOT DETECTED DN-NOT DETECTED MAIN LAB Pertussis Chlamydophila NOT DETECTED DN-NOT DETECTED MAIN LAB Pneumoniae Mycoplasma NOT DETECTED DN-NOT DETECTED MAIN LAB Pneumoniae Specimen Bronchial Alveolar Lavage Performing Organization Address [facility] Ph one Number ANTOLIN MAIN LAB [address] [place] [address] * HERPES SIMPLEX PCR - NON-BLOOD (02/18/2020 10:49 AM CDT) [facility] Specimen, BRONCHIAL ALVEOLAR LAVAGE MAIN LAB Herpes Herpes Simplex HSV 1 and 2 NOT DETECTED HSVND-HSV 1 and 2 MAIN LAB PCR Comment: NOT DETECTED [employer] HSV 1&2 Assay is a qualitative real-time PCR test for the direct detection and differentiation of HSV 1 and 2 DNA. This assay is FDA approved for testing cutaneous or mucocutaneous lesions from symptomatic patients. Performance on modifications of this test as well as other specimen types has been validated by the Department of Pathology and Laboratory Medicine at the [facility]. Specimen Bronchial Alveolar Lavage Performing Organization Address [facility] Ph one Number ANTOLIN MAIN LAB [address] [place] [address] * [facility] (02/18/2020 10:49 AM CDT) Test Fungal Plus PCR Profile I REFERENCE L AB Reference Lab [facility] REFERENCE LAB Results Ref Lab NONE DETECTED REFERENCE LAB NEGATIVE Report Available in Epic SEE ALL 3 RESULTS Specimen Mail BRONCHIAL ALVEOLAR LAVAGE REFERENCE L AB Specimen Narrative Performed At This result has an attachment that is n ot available. Performing Organization Address [facility] Ph one Number REFERENCE LAB REFERENCE LAB See results for address. * GRAM STAIN (02/18/2020 10:49 AM CDT) Only the most recent of 2 results within the time period is included. Battery Name GRAM STAIN KU MAIN LAB Specimen BRONCHIAL ALVEOLAR LAVAGE, RUL [facility] LAB Description Special NONE MAIN LAB Requests Gram Stain FEW MAIN LAB NEUTROPHILS MANY RBC'S NO ORGANISMS SEEN Report Status FINAL MAIN LAB 02/18/2020 Specimen Bronchial Alveolar Lavage,RUL Performing Organization Address [facility] Ph one Number MAIN LAB [address] [place] [address] * CULTURE-RESP,LOWER W/SENSITIVITY (02/18/2020 10:49 AM CDT) Only the most recent of 2 results within the time period is included. Battery Name LOWER RESP CULTURE MAIN LAB Specimen BRONCHIAL ALVEOLAR LAVAGE, RUL [facility] Description Special NONE MAIN LAB Requests Direct Gram FEW MAIN LAB Stain NEUTROPHILS MANY RBC'S NO ORGANISMS SEEN Culture NO GROWTH 2 DAYS MAIN LAB Report Status FINAL MAIN LAB 02/20/2020 Specimen Bronchial Alveolar Lavage,RUL Performing Organization Address [facility] one Number MAIN LAB [address] [place] [address] * CMV QUANT PCR-FLUID (02/18/2020 10:49 AM CDT) Specimen, CMV BRONCHIAL ALVEOLAR LAVAGE [facility] CMV by CMV DNA NOT DETECTED CMVND-CMV DNA NOT [facility] PCR-fluid DETECTED CMV This assay is an off label use [facility] Comment-Fluid of the [employer] y for detection of CMV in fluids and has not been approved by the US Food and Drug Administration. The performance characteristics were determined by the [facility]. The lower limit of detection is 50IU/mL. Specimen Fluid - Bronchial Alveolar Lavage Performing Organization Address [facility] Ph one Number MAIN LAB [address] [place] [address] * CYTOLOGY BRONCH LAVAGE (02/18/2020 10:45 AM CDT) Cytology [facility] [email or web address] Department of Pathology and Laboratory Medicine [address] [place] [address] Surgical Pathology Office: [phone] CYTOLOGY REPORT NAME: JHONY BRIGGS CYTOLOGY #: [id number] MR #: [id number] ALT ID #: BILLING #: [id number] LOCATION: 42 DATE OF PROCEDURE: 02/18/2020 AGE: 75 SEX: M DATE RECEIVED: 02/19/2020 : 1945 TIME RECEIVED: 08:53 PHYSICIAN: PARMINDER GOMEZ MD DATE OF REPORT: 02/20/2020 COPY TO: DATE OF PRINTIN02/20/2020 Material Received: A: Bronchial Alveolar Lavage-RUL History: 75-year-old male with a history of leukemia Gross Description: ( 1 ThinPrep, 1 GMS) 7mLs of cloudy light red fluid. ############################## ############################## ############ Final Diagnosis: A. Bronchial Alveolar Lavage-RUL: Atypical cells present, favor reactive pneumocytes. The Grocott stain is negative for Pneumocystis and other fungal organisms. Attestation: By this signature, I attest that I have personally formulated the final interpretation expressed in this report and that the above diagnosis is based upon my examination of the slides and/or other material indicated in this report. +++Electronically Signed Out By+++ dm/02/19/2020 Interpreted by: MD Ramírez Walker MD Fellow Specimen Bronchial Alveolar Lavage,RUL Performing Organization Address City/State/Zipcode Ph one Number [facility] [address] [place] [address] * BRONCHOSCOPY (02/18/2020 10:29 AM CDT) Provation Patient Name: Jhony DANGELO OTHER Report Procedure Date: 02/18/2020 10:29 RESULT S AM CSN: [id number] Date of : 1945 Gender: Male Attending Physician: Parminder Gomez MD Procedure: Bronchoscopy Indications: Bilateral infiltrate Providers: Parminder Gomez MD (Doctor), Sathish Boudreaux RN (Nurse), Marquis Saavedra, Technologist (Track Oiler) Referring Physician: Javier Galarza MD Medications: per anesthesia, General Anesthesia Complications: No immediate complications Findings: Bilateral Lung Abnormalities: Clear, thick secretions were found throughout the tracheobronchial tree. They were not obstructing the airway. No biopsies or other specimens were collected for this exam. BAL was performed in the RUL apical segment (B1) of the lung and sent for cell count, bacterial culture, viral smears & culture, fungal & AFB analysis and cytology for immunocompromised host protocol. 150 mL of fluid were instilled. 50 mL were returned. The return was blood-tinged, cloudy and mucoid. Mucous plugs were present in the return fluid. Multiple specimens were obtained, and each sent for analysis. Impression: - Bilateral infiltrate - Clear, thick secretions were found throughout the tracheobronchial tree. - No specimens collected. - Bronchoalveolar lavage was performed. Estimated Blood Loss: Estimated blood loss: none. Recommendation: - Await BAL results. Scope In: 10:46:48 AM Scope Out: 10:50:25 AM Attending Participation: I was present and participated during the entire procedure, including non-guardado portions. I personally performed the entire procedure. MD Parminder Bee MD 02/18/2020 12:26:08 PM The attending physician has electronically signed and finalized this document. Number of Addenda: 0 Note Initiated On: 02/18/2020 10:29 AM Specimen Performing Organization Address City/State/Zipcomd Ph one Number KU OTHER RESULTS * OUTSIDE PATHOLOGY CONSULT (02/17/2020 7:37 AM CDT) PATHOLOGY [facility] [email or web address] Department of Pathology and Laboratory Medicine [address] [place] [address] Surgical Pathology Office: [phone] PATHOLOGY CONSULTATION NAME: JHONY BRIGGS SURG PATH #: [id number] MR #: [id number] ALT ID #: LOCATION: 42 DATE OF PROCEDURE: 02/17/2020 AGE: 75 SEX: M DATE RECEIVED: 02/17/2020 : 1945 TIME RECEIVED: 07:37 PHYSICIAN: VARUN DARDEN DATE OF REPORT: 02/17/2020 COPY TO: FRANCK SUH UNRULY RICKS MD DATE OF PRINTIN02/17/2020 OUTSIDE INSTITUTION: [facility] [employer] [address] [place] [address] phone: [phone] fax: [phone] ############################## ############################## ############ Final Diagnosis: Outside case "[id number]" (date collected 02/06/2020). Bone marrow, aspirate, biopsy, and clot: Acute myeloid leukemia with monocytic differentiation (29% blasts and blast equivalents) involving a hypercellular bone marrow (95%) with decreased trilineage hematopoiesis. Peripheral blood smear: Leukoerythroblastic reaction including neutrophilia with granulocytic left shift and 13% circulating blasts/blast equivalents and circulating nucleated red blood cells; macrocytic anemia, lymphocytosis, monocytosis, and marked thrombocytopenia. Comment: CBC Data: HGB 8.0 (g/dL); MCV 110 (FL); WBC 54.5 (k/uL); PLT 26 (k/uL). Blood Smear Diff (%): Neutrophils 24; lymphocytes 16; monocytes 43; eosinophils 1; myelocytes 3; blasts/blast equivalents 13; (Nuc RBC = 2 per 100 WBC) Blood Smear Morphology: RBC: Macrocytic, polychromasia increased with circulating nucleated red blood cells WBC: Increased number, neutrophilia with granulocytic left shift, lymphocytosis, monocytosis, 13% circulating blasts/blast equivalents (myelo- and monoblasts/promonocytes) Platelets: Markedly decreased number, normal morphology Bone Marrow Aspirate Morphology: Aspirate Adequacy: Adequate Cellularity: Increased Megakaryocytes: Appear decreased; rare form with nuclear hypolobation Blasts: Increased blasts and blast equivalents including intermediate-sized forms with smooth nuclear contours, immature chromatin, and scant cytoplasm as well as forms with delicately folded chromatin and moderate cytoplasm with occasional cytoplasmic blebbing (promonocytes) Erythroid: Decreased, rare forms with nuclear irregularity; overall normal morphology Granulocytes: Decreased Lymphocytes: Normal Plasma Cells: Normal Bone Marrow Differential Cell Count (%): Blasts: 29 Promyelocytes: 0 Myelocytes: 10 Metamyelocytes: 0 Segs/Bands: 9 Eosinophils: 2 Erythroid: 19 Monocytes: 29 Lymphocytes: 2 Plasma cells: 0 M:E ratio: 1.0 Bone Marrow Core Biopsy: Adequacy: Adequate Length: 0.7 cm Cellularity: 95% Megakaryocytes: Small forms with nuclear hypolobation Hematopoiesis: Resembles aspirate smear; sheets of immature mononuclear forms Bone Marrow Cell Clot: Adequacy: Adequate Cellularity: 95% Pertinent Findings: Resembles core biopsy Additional Stains: Iron Stain: Performed on aspirate smear, core, and clot; decreased storage iron, decreased erythroid iron incorporation, no ring sideroblasts Immunohistochemistry: Not performed Chromogenic In Situ Hybridization: Not performed Other Special Stains: Not performed Ancillary Studies: Flow Cytometry: Performed, 4.5% conventional blasts and increased and aberrant monocytes/monocytic precursors Cytogenetics: Performed, see separate report Fluorescence In Situ Hybridization: Not performed Molecular Genetics: Performed (NPM1, CEBPA, and FLT3 ITD), see separate report Attestation: By this signature, I attest that I have personally formulated the final interpretation expressed in this report and that the above diagnosis is based upon my examination of the slides and/or other material indicated in this report. +++ +++ k/02/17/2020 ############################## ############################## ############ Material Received: A: Outside Slides x13, [id number], [facility], [employer], [address] [place] [address], [place] [address] History: 75-year-old male with leukemia Gross Description: A. Received are thirteen (13) outside slides and a report labeled "[id number]". If immunohistochemical stains and/or in situ hybridization are cited in this report, the performance characteristics were determined by the Department of Pathology and Laboratory Medicine of the [facility] ([employer]) in compliance with CLIA'88 regulations. Some of these tests rely on the use of "analyte specific reagents" and are subject to specific labeling requirements by the FDA. Known positive and negative control tissues demonstrate appropriate staining. Results should be interpreted with caution given the likelihood of false negativity on decalcified specimens. This testing was developed by the Department of Pathology and Laboratory Medicine of the [facility]. It has not been cleared or approved by the FDA. The FDA has determined that such clearance or approval is not necessary. Specimen Performing Organization Address City/[facility] Ph one Number [facility] [address] [place] [address] * VRE SCREEN (02/16/2020 3:40 AM CDT) Only the most recent of 3 results within the time period is included. Battery Name VRE SCREEN [facility] Specimen PERIRECTAL SWAB [facility] Description Special NONE MAIN LAB Requests Culture NO VRE ISOLATED MAIN LAB Report Status FINAL [facility] 02/17/2020 Specimen Perirectal Swab Performing Organization Address [facility] Ph one Number [facility] [address] [place] [address] * FUNGITELL (02/15/2020 12:35 PM CDT) Fungitell <31 REFERENCE LAB Reference range: <80 Unit: pg/mL . Interpretation: The Fungitell assay does not detect certain fungal species such as the genus Cryptococcus (Libia et al. 1991) which produces very low levels of (1-3)-Yldy-M-Finqqw. The assay also does not detect the Zygomycetes such as Absidia, Mucor and Rhizopus (Miriam et al. 1994) which are not known to produce (1-3)-Jybn-P-Uiygom. In addition, the yeast phase of Blastomyces dermatitidis produces little (1-3)-Mcuf-E-Uhazys and may not be detected by the assay (Matilda et al. 2007). . Reference Range: Less than 60 pg/mL. Glucan values of less than 60 pg/mL are interpreted as negative. Glucan values of 60 to 79 pg/mL are interpreted as indeterminate, and suggest a possible fungal infection. Additional sampling and testing of sera is required to interpret the results. . Glucan values of greater than or equal to 80 pg/mL are interpreted as positive. Due to the potential for environmental contamination when transferred to pour-off tubes, which can lead to false positive results, interpret positive results from samples provided in pour-off tubes with caution. Results should be used in conjunction with clinical findings, and should not form the sole basis for a diagnosis or treatment decision. The Fungitell test is approved or cleared for in vitro diagnostic use by the U.S Food and Drug Administration. Modifications to the approved package insert have been made and the performance characteristics for these modifications were determined by [facility] . If sample result is greater than 500 pg/mL, physician may order a titer of the sample. Please contact [facility] if you would like to order a retest of this sample to obtain an actual value. Samples are held for 1 week after initial testing date. Testing Performed At: [facility] [employer] [address] [place] [address] [employer] [place] [address] CLIA ID: [id number] Specimen Blood Performing Organization Address City/State/Zipcode Ph one Number REFERENCE LAB REFERENCE LAB See results for address. * ASPERGILLUS (GALACTOMANNAN) AG (02/15/2020 12:35 PM CDT) Pathologist [facility] Aspergillus 0.033 REFERENCE LAB Galactomann AG Comment: Reference range: <0.500 . Interpretation: Patients with an index value of greater than or equal to 0.5 are considered to be positive for galactomannan antigen. The Platelia(TM) Aspergillus EIA package insert also recommends a new sample be collected from the patient for follow-up testing. Patients with an index value of less than 0.5 are considered to be negative for galactomannan antigen. A negative result may indicate that the patient's result is below the detectable level of the assay. . Negative results do not rule out the diagnosis of Invasive Aspergillosis. Pursuant to the package insert, repeat testing is recommended if the result is negative, but the disease is suspected. Due to the potential for environmental contamination when transferred to pour-off tubes, which can lead to false positive results, interpret positive results from samples provided in pour-off tubes with caution. Results should be used in conjunction with clinical findings, and should not form the sole basis for a diagnosis or treatment decision. . The Platelia Aspergillus Galactomannan EIA is a product of [employer] and is FDA approved for in vitro diagnostic use. Testing Performed At: [facility] [address] [place] [id number] CLIA ID: [id number] Specimen Blood Performing Organization Address City/State/[facility] Ph one Number REFERENCE LAB REFERENCE LAB See results for address. * CT CHEST WO CONTRAST (02/15/2020 12:25 PM CDT) Specimen Impressions Performed At 1. Multifocal patchy groundglass opacities and inte rstitial prominence [facility] RAD RESULTS throughout both lungs, greater on the r ight, which are nonspecific though suggestive of multifocal atypical pneum onia and/or pulmonary edema. However, the lack of significant cardiomegaly or pul monary venous congestion, going against pulmonary edema favor multifocal pneumo bradly. Per the electronic medical record, patient tested negative for COVID 19. 2. Small bilateral pleural effusions. 3. Prior CABG with marked port gamble florentino nary and aortic valvular calcifications. 4. Mild mediastinal lymphadenopathy, likely reactive. 5. 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 By my electronic signature, I attest th at I have personally reviewed the images for this examination and formulated the interpretations and opinions expressed in this report Finalized by Warner Murray M.D. on 02/15/2020 12:55 PM. Dictated by Shaheen Xiao M.D. on 02/15/2020 12:23 PM. Narrative Performed At CT CHEST KU RAD RESULTS Clinical Indication: 75-year-old male, pneumonia, leukemia Technique: Multiple contiguous axial CT images were obtained through the chest without IV contrast. Post processing co cris and sagittal reconstruction images were made from the axial images. IV contrast: None. Comparison: Chest x-ray earlier same da y FINDINGS: Evaluation of the mediastinum and vignesh, including the vasculature and for lymphadenopathy, is limited without the use of IV contrast. Lower Neck: Right PICC remains in place with tip resting in the distal SVC. Axilla, Mediastinum and Vignesh: There is mild mediastinal lymphadenopathy. A dominant lymph node anterior to the sup erior vena cava measures 1.3 x 1.2 cm (series 3, image 26).. Mildly prominent epiphrenic lymph nodes are also noted, measuring up to 0.5 cm. No axillary or definite hilar lymphadenopathy. Heart and Great Vessels: Prior median s ternotomy and CABG. The heart is upper limits of normal size without pericardi al effusion. Hypodensity of the cardiac blood pool relative to the myocardium s uggests anemia. Marked port gamble coronary artery calcifications and aortic valvul ar calcifications. Normal caliber thoracic aorta with mild calcific ather osclerosis. Airway, Lungs and Pleura: Central airwa ys are patent. There are multifocal areas of patchy groundglass opacity and inter stitial prominence in both lungs, greatest throughout the right lung, wit h some areas having an appearance of "crazy paving". Small bilateral pleural effusions layer dependently. No pneumothorax. No significant pulmonary venous congestion. Upper Abdomen: Simple appearing anterio r right lobe hepatic cyst. Mild splenomegaly. Chest Wall and Osseous Structures: No d estructive osseous lesion. Moderate thoracic spondylosis and confluent oste ophytes at multiple levels in the thoracic spine suggestive of DISH. Prio r median sternotomy with mild diastases of the inferior sternotomy margins. Procedure Note Interface, Radiant Results - 02/15/2020 12:[address] CHEST Clinical Indication: 75-year-old male, pneumonia, leukemia Technique: Multiple contiguous axial CT images were obtained through the chest without IV contrast. Post processing coronal and sagittal reconstruction images were made from the axial images. IV contrast: None. Comparison: Chest x-ray earlier same day FINDINGS: Evaluation of the mediastinum and vignesh, including the vasculature and for lymphadenopathy, is limited without the use of IV contrast. Lower Neck: Right PICC remains in place with tip resting in the distal SVC. Axilla, Mediastinum and Vignesh: There is mild mediastinal lymphadenopathy. A dominant lymph node anterior to the superior vena cava measures 1.3 x 1.2 cm (series 3, image 26).. Mildly prominent epiphrenic lymph nodes are also noted, measuring up to 0.5 cm. No axillary or definite hilar lymphadenopathy. Heart and Great Vessels: Prior median sternotomy and CABG. The heart is upper limits of normal size without pericardial effusion. Hypodensity of the cardiac blood pool relative to the myocardium suggests anemia. Marked port gam[place] coronary artery calcifications and aortic valvular calcifications. Normal caliber thoracic aorta with mild calcific atherosclerosis. Airway, Lungs and Pleura: Central airways are patent. There are multifocal areas of patchy groundglass opacity and interstitial prominence in both lungs, greatest throughout the right lung, with some areas having an appearance of "crazy paving". Small bilateral pleural effusions layer dependently. No pneumothorax. No significant pulmonary venous congestion. Upper Abdomen: Simple appearing anterior right lobe hepatic cyst. Mild splenomegaly. Chest Wall and Osseous Structures: No destructive osseous lesion. Moderate thoracic spondylosis and confluent osteophytes at multiple levels in the thoracic spine suggestive of DISH. Prior median sternotomy with mild diastases of the inferior sternotomy margins. IMPRESSION 1. Multifocal patchy groundglass opacit ies and interstitial prominence throughout both lungs, greater on the right, which are nonspecific though suggestive of multifocal atypical pneumonia and/or pulmonary edema. However, the lack of significant cardiomegaly or pulmonary venous congestion, going against pulmonary edema favor multifocal pneumonia. Per the electronic medical record, patient tested negative for COVID 19. 2. Small bilateral pleural effusions. 3. Prior CABG with marked port gamble delacruz ry and aortic valvular calcifications. 4. Mild mediastinal lymphadenopathy, li johan reactive. 5. 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 By my electronic signature, I attest that I have personally reviewed the images for this examination and formulated the interpretations and opinions expressed in this report Finalized by Warner Murray M.D. on 02/15/2020 12:55 PM. Dictated by Shaheen Xiao M.D. on 02/15/2020 12:23 PM. Performing Organization Address City/State/Zipcode Ph one Number KU RAD RESULTS * CHEST SINGLE VIEW (02/15/2020 9:10 AM CDT) Only the most recent of 2 results within the time period is included. Specimen Impressions Performed At Mild progression of the bilateral pulmonary opacities suggestive of edema or [facility] RAD RESULTS pneumonia. Finalized by Kvng Fisher D.O. on 2019 10:43 AM. Dictated by Kvng Fisher D.O. on 02/15/2020 10:42 AM. Narrative Performed At Chest single view [facility] RAD RESULTS CLINICAL HISTORY: Cough COMPARISON: February 08, 2020 FINDINGS: Right PICC remains in similar position. Prior CABG. Heart upper limits of normal for size. There has been mild interval progression of the diffuse reticular opacities within the right lung and the left lung base. No pleural effusion or pneumothorax is identified. Procedure Note Interface, Radiant Results - 02/15/2020 10:46 AM CDT Chest single view CLINICAL HISTORY: Cough COMPARISON: February 08, 2020 FINDINGS: Right PICC remains in similar position. Prior CABG. Heart upper limits of normal for size. There has been mild interval progression of the diffuse reticular opacities within the right lung and the left lung base. No pleural effusion or pneumothorax is identified. IMPRESSION Mild progression of the bilateral pulmonary opacities suggestive of edema or pneumonia. Finalized by Kvng Fisher D.O. on 02/15/2020 10:43 AM. Dictated by Kvng Fisher D.O. on 02/15/2020 10:42 AM. Performing Organization Address [facility] one Number KU RAD RESULTS * MAGNESIUM (02/13/2020 4:40 AM CDT) Only the most recent of 6 results within the time period is included. Magnesium 2.4 1.6 - 2.6 mg/dL [facility] MAIN LAB Specimen Blood Performing Organization Address [facility] one Number MAIN LAB [address] [place] [address] * PTT (APTT) (02/12/2020 4:00 AM CDT) Only the most recent of 12 results within the time period is included. APTT 19.7 (L) 24.0 - 36.5 SEC MAIN LAB Specimen Blood Performing Organization Address [facility] one Number MAIN LAB [address] [place] [address] * PROTIME INR (PT) (02/12/2020 4:00 AM CDT) Only the most recent of 12 results within the time period is included. INR 1.3 (H) 0.8 - 1.2 [facility] MAIN LAB Specimen Blood Performing Organization Address [facility] one Number [facility]U MAIN LAB [address] [place] [address] * FIBRINOGEN (02/12/2020 4:00 AM CDT) Only the most recent of 12 results within the time period is included. Fibrinogen 449 (H) 200 - 400 MG/DL [facility] MAIN LAB Specimen Blood Performing Organization Address [facility] one Number MAIN LAB [address] [place] [address] * LDH-LACTATE DEHYDROGENASE (02/12/2020 4:00 AM CDT) Only the most recent of 7 results within the time period is included. Lactate 415 (H) 100 - 210 U/L [facility] MAIN LAB Dehydrogenase Specimen Blood Performing Organization Address [facility] one Number MAIN LAB [address] [place] [address] * BASIC METABOLIC PANEL CELLULAR THERAPEUTICS (02/11/2020 4:00 PM CDT) Only the most recent of 6 results within the time period is included. Sodium 137 137 - 147 MMOL/L [facility] MAIN LAB Potassium 4.7 3.5 - 5.1 MMOL/L [facility] MAIN LAB Chloride 107 98 - 110 MMOL/L [facility] MAIN LAB CO2 21 21 - 30 MMOL/L [facility] MAIN LAB Anion Gap 9 3 - 12 [facility] MAIN LAB Glucose 111 (H) 70 - 100 MG/DL [facility] MAIN LAB Blood Urea 57 (H) 7 - 25 MG/DL [facility] MAIN LAB Nitrogen Creatinine 2.26 (H) 0.4 - 1.24 MG/DL [facility] MAIN LAB Calcium 8.2 (L) 8.5 - 10.6 MG/DL [facility] MAIN LAB eGFR Non 28 (L) >60 mL/min [facility] MAIN LAB Comment: Nepalese The eGFR is not validated f or use in drug dosing adjustments. Continue to use estimated creatinine clearance per dosing reference text. Please contact the Clinical Pharmacist for questions. eGFR 34 (L) >60 mL/min KU MAIN LAB [place]e Comment: The eGFR is not validated for use in drug dosing adjustments. Continue to use estimated creatinine clearance per dosing reference text. Please contact the Clinical Pharmacist for questions. Specimen Blood Performing Organization Address City/State/Zipcode Ph one Number MAIN LAB [address] [place] [address] * CULTURE-BLOOD W/SENSITIVITY (02/09/2020 5:23 PM CDT) Only the most recent of 3 results within the time period is included. Battery Name BLOOD CULTURE [facility] MAIN LAB Specimen BLOOD [facility] MA[facility] Description LEFT ARM Special NONE [facility] MAIN LAB Requests Culture NO GROWTH 5 DAYS [facility] MAIN LAB Report Status FINAL MAIN LAB 02/15/2020 Specimen Blood Performing Organization Address City/[facility]/Zipcode Ph one Number MAIN LAB [address] [place] [address] * 2-D + DOPPLER ECHOCARDIOGRAM (02/09/2020 2:54 PM CDT) LVOT diameter 2.23 cm OTHER OUTSIDE LAB IVS 1.04 0.6 - 1.0 cm OTHER OUTSIDE LAB LVIDD 5.67 4.2 - 5.8 cm OTHER OUTSIDE LAB LVIDS 3.74 2.5 - 4.0 cm OTHER OUTSIDE LAB PW 1.19 0.6 - 1.0 cm OTHER OUTSIDE LAB Left Ventricle 105.21 62 - 150 mL OTHER OUTSIDE Diastolic LAB Volume Left Ventricle 42.77 34 - 74 mL OTHER OUTSIDE Diastolic LAB Volume Index Left Ventricle 38.64 21 - 61 mL OTHER OUTSIDE Systolic Volume LAB Left Ventricle 15.71 11 - 31 mL OTHER OUTSIDE Systolic Volume LAB Index LVOT peak thony 1.29 m/s OTHER OUTSIDE LAB LVOT peak VTI 24.48 cm OTHER OUTSIDE LAB TDI lateral e' 0.10 m/s OTHER OUTSIDE LAB Right 2.08 1.9 - 3.5 cm OTHER OUTSIDE Ventricular Mid LAB Diameter LA size 4.40 3.0 - 4.0 cm OTHER OUTSIDE LAB LA volume 62.74 18 - 58 mL OTHER OUTSIDE LAB Right Atrial 14.63 <18 cm2 OTHER OUTSIDE Area LAB Right Atrial 4.74 2.1 - 2.7 cm OTHER OUTSIDE Major Dimension LAB , with a mean 17 mmHg OTHER OUTSIDE gradient of LAB AV peak 2.6 m/s OTHER OUTSIDE velocity LAB Ao VTI 50.0 cm OTHER OUTSIDE LAB MV Peak A Thony 0.72 m/s OTHER OUTSIDE LAB MV Peak E Thony 1.45 m/s OTHER OUTSIDE PW LAB Right 3.20 2.5 - 4.1 cm OTHER OUTSIDE Ventricular LAB Basal Diameter Right Heart 0.88 >1.7 cm OTHER OUTSIDE Systolic Mmode LAB TAPSE Right Heart 0.10 m/s OTHER OUTSIDE Systolic TDI S' LAB Sinus 3.66 2.8 - 4.0 cm OTHER OUTSIDE LAB Ascending aorta 3.51 cm OTHER OUTSIDE LAB BSA 2.46 m2 OTHER OUTSIDE LAB CV ECHO LINDA Thurston RN-Definity OTHER OUTSIDE SOFTBALL PLAYER LAB MV mean 4 mmHg OTHER OUTSIDE gradient LAB MV valve area 2.72 cm2 OTHER OUTSIDE P1/2 LAB FS 34.04 28 - 44 % OTHER OUTSIDE LAB EF 57.87 % OTHER OUTSIDE LAB LV mass 259.15 88 - 224 g OTHER OUTSIDE LAB RWT 0.42 <=0.42 OTHER OUTSIDE LAB Aortic valve 1.91 cm2 OTHER OUTSIDE area = LAB AV index 0.50 OTHER OUTSIDE (port gamble) LAB MV valve area 2.90 cm2 OTHER OUTSIDE by continuity LAB eq E/A ratio 2.01 OTHER OUTSIDE LAB LVOT area 3.91 cm2 OTHER OUTSIDE LAB LVOT stroke 95.61 cm3 OTHER OUTSIDE volume LAB and a peak 28 mmHg OTHER OUTSIDE gradient of LAB Lateral E/E' 14.50 OTHER OUTSIDE ratio LAB MV VTI 33 cm OTHER OUTSIDE LAB MV stenosis 81 ms OTHER OUTSIDE pressure 1/2 LAB time Left Atrium 25.50 16 - 34 OTHER OUTSIDE Index LAB Cardiology Siemens [id number] OTHER OUTSIDE Ultrasound LAB Machine Left Ventricle 105.34 49 - 115 g/m2 OTHER OUTSIDE Mass Index LAB ECHO EF 60 % OTHER OUTSIDE LAB Specimen Narrative Performed At OTHER OUTSIDE LAB 1. There is limited endocardial definit ion. Contrast is used to enhance endocardial definition. A septal wall motion abnormality is noted consistent with prior cardiac surgery. No other regional wall motion abnormalities are seen. Overall LV syst olic function appears normal. The estimated left ventricular ejection fra ction is 60%. 2. The right ventricle and the atria ar e not visualized well. 3. Cardiac valve structures are not vis ualized well. The aortic valve is not visualized well but appears sclerot ic. The Doppler exam suggests mild aortic valve stenosis. 4. No pericardial effusion is seen. Performing Organization Address City/State/Zipcode Ph one Number OTHER OUTSIDE LAB * ABDOMEN AP ONLY (02/09/2020 8:45 AM CDT) Specimen Impressions Performed At No radiographic evidence of bowel obstruction. KU RA D RESULTS Mild splenomegaly. Finalized by Tommy Haines M.D. on 2019 11:04 AM. Dictated by Tommy Haines M.D. on 02/09/2020 11:02 AM. Narrative Performed At Abdominal pain. Hx of bowel obstruction. KU RAD RESU LTS Technique: 3 AP supine views of the abdomen were o btained. Comparison: No prior examinations are available.. Findings: The bowel gas pattern is nonobstructive . There is mild fecal retention with stool in the rectal vault. No abnormal intra-abdominal calcifications are identified. The spleen is mildly enlarg ed. There are osteophytes at multiple levels in the lumbar spine. Changes of prior sternotomy and coronar y artery bypass grafting are noted. A loop recorder is present in the soft ti ssues of the left chest wall. Procedure Note Interface, Radiant Results - 02/09/2020 11:08 AM CDT Abdominal pain. Hx of bowel obstruction. Technique: 3 AP supine views of the abdomen were ob tained. Comparison: No prior examinations are available.. Findings: The bowel gas pattern is nonobstructive. There is mild fecal retention with stool in the rectal vault. No abnormal intra-abdominal calcifications are identified. The spleen is mildly enlarged. There are osteophytes at multiple levels in the lumbar spine. Changes of prior sternotomy and coronary artery bypass grafting are noted. A loop recorder is present in the soft tissues of the left chest wall. IMPRESSION No radiographic evidence of bowel obstruction. Mild splenomegaly. Finalized by Tommy Haines M.D. on 02/09/2020 11:04 AM. Dictated by Tommy Haines M.D. on 02/09/2020 11:02 AM. Performing Organization Address City/State/Zipcode Ph one Number KU RAD RESULTS * TROPONIN-I (02/08/2020 6:20 AM CDT) Only the most recent of 3 results within the time period is included. Troponin-I 0.64 (H) 0.0 - 0.05 NG/ML [facility] MAIN LAB Specimen Blood Performing Organization Address City/State/Zipcode Ph one Number [facility] MAIN LAB [address] [place] [address] * BNP (B-TYPE NATRIURETIC PEPTI) (02/08/2020 1:00 AM CDT) B Type 523.0 (H) 0 - 100 PG/ML MAIN LAB Natriuretic Peptide Specimen Blood Performing Organization Address [facility] one Number MAIN LAB [address] [place] [address] * LIPASE (02/08/2020 1:00 AM CDT) Lipase 30 11 - 82 U/L MAIN LAB Specimen Blood Performing Organization Address [facility] one Number MAIN LAB [address] [place] [address] * LACTIC ACID(LACTATE) (02/08/2020 1:00 AM CDT) Pathologist [facility] Lactic Acid 0.9 0.5 - 2.0 MMOL/L MAIN LAB Specimen Blood Performing Organization Address [facility] one Number MAIN LAB [address] [place] [address] * LIVER FUNCTION PANEL (02/08/2020 1:00 AM CDT) Total Bilirubin 1.3 (H) 0.3 - 1.2 MG/DL MAIN LAB Bilirubin, 0.5 (H) <0.4 MG/DL MAIN LAB Direct Albumin 3.5 3.5 - 5.0 G/DL MAIN LAB Alk Phosphatase 132 (H) 25 - 110 U/L MAIN LAB AST (SGOT) 36 7 - 40 U/L MAIN LAB ALT (SGPT) 26 7 - 56 U/L MAIN LAB Total Protein 6.1 6.0 - 8.0 G/DL MAIN LAB Specimen Blood Performing Organization Address [facility] one Number MAIN LAB [address] [place] [address] * BLOOD TYPE CONFIRMATION - ORDER ONLY IF REQUESTED BY LAB (02/06/2020 8:42 PM CDT) ABO/RH(D) B POS MAIN LAB Specimen Blood Performing Organization Address [facility] one Number MAIN LAB [address] [place] [address] * FLOW CYTOMETRY (02/06/2020 8:03 PM CDT) PATHOLOGY [facility] MAIN [facility] [email or web address] Damian Johnson MD, Director of Flow Cytometry Laboratory Department of Pathology and Laboratory Medicine [address] [place] [address] Surgical Pathology Office: [phone] FLOW CYTOMETRY REPORT NAME: JHONY BRIGGS SURG PATH #: [id number] MR #: [id number] SPECIMEN CLASS: LC BILLING #: [id number] ALT ID #: LOCATION: 42 DATE OF PROCEDURE: 02/06/2020 AGE: 75 SEX: M DATE RECEIVED: 02/07/2020 : 1945 TIME RECEIVED: 08:54 PHYSICIAN: Charlette Zhu APRN DATE OF REPORT: 02/07/2020 COPY TO: [facility] DATE OF PRINTIN02/07/2020 Material Received: A: Peripheral blood History: 75 year old male with a history of leukocytosis ############################## ############################## ############ Final Diagnosis: Blood, flow cytometry: 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 Population #1 is CD34(+) myeloid blasts (4% of total events) positive for CD13, CD33, CD34, CD38, CD117, dim CD123 (aberrant), HLA-DR, and cytoplasmic MPO. They are negative for CD11c, CD14, CD64, B cell markers, and T cell markers. Population #2 is monocytoid cells (67% of total events) positive for dim CD4, CD11b, CD11c, CD13, CD14, dim CD15, CD33, CD38, CD56 (aberrant), CD64, HLA-DR, and cytoplasmic MPO. They are negative for CD34, CD117, B cell markers, and T cell markers. Morphologic review of the blood smear shows 54% blasts (some with promonocyte features) and 18% mature monocytes. These results are diagnostic of acute myeloid leukemia with monocytic differentiation. Attestation: By this signature, I attest that I have personally formulated the final interpretation expressed in this report and that the above diagnosis is based upon my examination of the slides and/or other material indicated in this report. +++Electronically Signed Out By+++ gretelw/02/07/2020 Interpreted by: Jordon Khan MD 02/07/2020 ############################## ############################## ############ Lab Data: Flow Cytometry - Acute Leukemia Panel Myeloid Associated Markers (% Positive Cells): CD11b = 9; CD11c = 1; CD13 = 88; CD14 = 1; CD15 = 3; CD33 = 95; CD64 = 15; CD117 = 85; cyMPO = 76; cyMPO+CD34+ = 51 B Cell Associated Markers (% Positive Cells): CD19 = 0; CD20 = 0; cyCD22 = 1; rkSW17j = 0 Parole = 0; Lambda = 0; Parole:Lambda ratio = n/a T Cell Associated Markers (% Positive Cells): CD1a = 0; CD2 = 0; sCD3 = 0; cyCD3 = 0; CD4 = 0; CD5 = 0; CD7 = 0; CD8 = 0 CD4:CD8 ratio = 0.0 Miscellaneous Markers (% Positive Cells): CD10 = 0; CD34 = 81; CD34+CD13+ = 81; CD34+CD117+ = 80; CD38 = 96; CD45 = 100; CD56 = 8; CD123 = 41; HLA-DR = 95; nTdT = 6 Cell Viability (%): n/a Number of Cells Analyzed: 25,000 Total Number of Markers: 31 Summary of Marker Combinations: Dr/33/34/13/123/45/56/15; 117/34/64/11b/45/14/11c; K/L/34/10/19/45/38/20; 2/7/4/3/1a/45/5/8; nTdt/cy22/34/cy3/cy79a/45/cyMP O/19 This test was developed and its performance characteristics determined by the [facility] Flow Cytometry Laboratory. It has not been cleared or approved by the U.S. Food and Drug Administration (FDA). The FDA has determined that such clearance or approval is not necessary. Specimen Performing Organization Address City/State/[facility] Ph one Number [facility] LAB [address] [place] [address] * CHROMOSOMES FISH DNA PROBE-BLOOD (02/06/2020 8:03 PM CDT) Pathologist [facility] Chromosomes Cytogenetics Report Available [facility] Fish DNA in Epic Probe-Blood Specimen Blood Narrative Performed At This result has an attachment that is n ot available. Performing Organization Address City/[facility] Ph one Number [facility] [address] [place] [address] * CHROMOSOMES BLD HEMATOLOGIC (02/06/2020 8:03 PM CDT) Pathologist [facility] Chromosomes Cytogenetics Report Available [facility] Blood in Epic Hematologic Specimen Narrative Performed At This result has an attachment that is n ot available. Performing Organization Address City/[facility] Ph one Number [facility] [address] [place] [address] * PERIPHERAL SMEAR (02/06/2020 8:03 PM CDT) Pathologist [facility] Peripheral INCREASED BLASTS (54%). FLOW [facility] Smear CYTOMETRY CONFIRMS DIAGNOSI S OF ACUTE MYELOID LEUKEMIA WITH MONOCYTIC DIFFERENTIATION. Pathologist INTERPRETED BY JORDON KHAN [facility] N [facility] Signature M.D. By the PATH SIGNATURE ABOVE, I attest that I have personally formulated the final interpretation expressed in this report and that the above diagnosis is based upon my examination of the slides and/or other material indicated in this report. Specimen Performing Organization Address [facility] Ph one Number [facility] [address] [place] [address] * LEUKEMIA-LYMPHOMA PANEL BLOOD (02/06/2020 8:03 PM CDT) Pathologist [facility] Leuk/Lymph SEE PATHOLOGY REPORT MAIN LAB Interpretation Specimen/LLM BLOOD [facility] Specimen Performing Organization Address [facility] Ph one Number [facility] [address] [place] [address] * CBC AND DIFF (02/06/2020 8:03 PM CDT) Pathologist [facility] White Blood 82.3 (HH) 4.5 - 11.0 K/UL [facility] Cells Comment: CRITICAL VALUE CALLED TO AND READ BACK BY/TIME/TECH [place] Sharron CASTILLO at 02/06/2020 21:21:38 by [id number] RBC 2.35 (L) 4.4 - 5.5 M/UL [facility] Hemoglobin 7.7 (L) 13.5 - 16.5 GM/DL [facility] Hematocrit 24.5 (L) 40 - 50 % [facility] MCV 104.2 (H) 80 - 100 FL [facility] MCH 32.8 26 - 34 PG [facility] MCHC 31.5 (L) 32.0 - 36.0 G/DL [facility] RDW 15.9 (H) 11 - 15 % [facility] Platelet Count 31 (L) 150 - 400 K/UL [facility] MPV 8.5 7 - 11 FL [facility] Nucleated RBCs 4 K/UL [facility] Segmented 11 (L) 41 - 77 % [facility] Neutrophils Bands 1 0 - 10 % [facility] Lymphocytes 18 (L) 24 - 44 % [facility] Monocytes 27 (H) 4 - 12 % [facility] Eosinophil 1 0 - 5 % [facility] Myelocyte 1 % [facility] Other Cells 41 % [facility] Comment: OTHERS ARE BLASTS CRITICAL VALUE CALLED TO AND READ BACK BY/TIME/TECH Dulce ACUNA/1346/64 ANISO PRESENT [employer] [facility] POLY PRESENT [facility] Platelet MKD DEC [facility] Estimate Absolute 9.87 (H) 1.8 - 7.0 K/UL [facility] Neutrophil Count Manual Specimen Performing Organization Address City/State/Zipcode Ph one Number MAIN [facility] [address] [place] [address] * PATHOLOGY REPORTS FROM OUTSIDE SCAN (02/06/2020 12:00 AM CDT) Narrative Performed At This result has an attachment that is n ot available. Ordered by an unspecified provider. * TELEMETRY STRIPS-SCAN (02/06/2020 12:00 AM CDT) Narrative Performed At This result has an attachment that is n ot available. Ordered by an unspecified provider. * ECG-SCAN (02/06/2020 12:00 AM CDT) Narrative Performed At This result has an attachment that is n ot available. Ordered by an unspecified provider. * ECG-SCAN (02/06/2020 12:00 AM CDT) Narrative Performed At This result has an attachment that is n ot available. Ordered by an unspecified provider. * ECG-SCAN (02/06/2020 12:00 AM CDT) Narrative Performed At This result has an attachment that is n ot available. Ordered by an unspecified provider. * PROCEDURE RECORD-SCAN (02/06/2020 12:00 AM CDT) Narrative Performed At This result has an attachment that is n ot available. Ordered by an unspecified provider. 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 Does the patient want any intervention Yes for a pre-arrest emergency which would necessitate transfer to an ICU setting? Respiratory emergency: does the patient No want to have intubation with mechanical ventilation? Symptomatic/hypotensive dysrhythmia with Yes a pulse: does the patient want cardioversion? Hypotension: does the patient want the Yes use of vasopressors if needed for blood pressure? Respiratory emergency: does the patient Yes want to have a trial of non-invasive positive pressure ventilation (NIPPV/BiPAP)? If all questions were answered "No", Instruction DNAR-FI is not the correct resuscitation Acknowledge d status order, please refer to reference links below to help you determine the correct order: 02/06/2020 8:05 PM Full Code 02/06/2020 6:20 PM Provider has discussed Code Status Yes w/Patient or Family?
--- OUTSIDE RECORDS SUMMARY | 2020-03-08 14:42 | XMS REPORT | Encounter Summary ---
Author Author [facility] Organization [facility] Address Unknown Phone Unavailable Care Team Providers Care Acute Care Surgeon Name Role Phone Deny Chilel MD PCP Reason for Visit * Auth/Cert Referred By Contact Referred To Contact Status Reason Specialty Diagnoses / Procedures Diagnoses Acute leukemia not having achieved remission (HCC) acute leukemia Encounter Details Care Team Description Date Type Department Varun Russo, DO [address] [place] [address] [phone] Male, Kimberley Magana MD [address] [place] [address] [phone] Unruly Ricks MD [address] [place] [address] [phone] Paroxysmal A-fib (HCC) 02/06/2020 [facility] 02/23/[address] [place] [address] Social History Date Tobacco Use Types Packs/Day Years Used Quit: 02/08/1987 Former Smoker Cigarettes 3 30 Smokeless Tobacco: Never Used Tobacco Cessation: Counseling Given: No Drinks/Week oz/Week Comments Alcohol Use Not Currently Sex Assigned at Date Recorded Male Industry Job Start Date Occupation Not on file Not on file Not on file Travel End Travel History Travel Start No recent travel history available. documented as of this encounter Last Filed Vital Signs Reading Time Taken [...] 02/12/2020 2:55 AM CDT Body Mass Index documented in this encounter Functional Status Date of Assessment Functional Status Response 02/09/2020 Does the patient have a hearing impairment: No documented as of this encounter Discharge Summaries * Gypsy Segundo APRN - 02/23/2020 10:08 AM CDT Physician Discharge Summary Name: Jhony Chi Date Of : 1945 Age: 75 years Admit date: 02/06/2020 Discharge date: 02/23/2020 Attending Physician: Dr. Stanley Stark Service: Med- Acute Leukemia Physician Summary completed by: Gypsy Segundo APRN Reason for hospitalization: Suspicion for acute leukemia Significant PMH: Medical History: Diagnosis Date AML (acute myeloblastic leukemia) (HCC) CAD (coronary artery disease) Diastolic dysfunction Hyperlipidemia Inflammatory arthritis Paroxysmal A-fib (HCC) Allergies: Patient has no known allergies. Admission Physical Exam notable for: Karnofsky Scale: 70% Cares for self; unable to do normal activity, or active wor k Performance Status ECO Gen: alert and oriented, NAD Head: normocephalic, atraumatic ENT: left TM with hemorrhage medially, no external bleeding observed Eyes: Pupils equal, no scleral icterus or subconjunctival hemorrhages CV: s1/s2 no murmur Pulm: CTA bilaterally Abd: soft, Nontender, no organomegaly Ext: 1+ bilateral LE edema Skin: Surgical scar chest/abdomen. Petechiae lower extremities Admission Lab/Radiology studies notable for: Results for JHONY CHI ( ) as of 02/23/2020 13:19 Ref. Range 02/06/2020 20:03 Hemoglobin Latest Ref Range: 13.5 - 16.5 GM/DL 7.7 (L) Hematocrit Latest Ref Range: 40 - 50 % 24.5 (L) Platelet Count Latest Ref Range: 150 - 400 K/UL 31 (L) White Blood Cells Latest Ref Range: 4.5 - 11.0 K/UL 82.3 (HH) Segmented Neutrophils Latest Ref Range: 41 - 77 % 11 (L) Absolute Neutrophil Count Manual Latest Ref Range: 1.8 - 7.0 K/UL 9.87 (H) Bands Latest Ref Range: 0 - 10 % 1 Lymphocytes Latest Ref Range: 24 - 44 % 18 (L) Monocytes Latest Ref Range: 4 - 12 % 27 (H) Eosinophil Latest Ref Range: 0 - 5 % 1 Myelocyte Latest Units: % 1 Other Cells Latest Units: % 41 Nucleated RBCs Latest Units: K/UL 4 Peripheral Smear Unknown INCREASED BLASTS ... Pathologist Signature Unknown INTERPRETED BY MA... RBC Latest Ref Range: 4.4 - 5.5 M/UL 2.35 (L) MCV Latest Ref Range: 80 - 100 FL 104.2 (H) MCH Latest Ref Range: 26 - 34 PG 32.8 MCHC Latest Ref Range: 32.0 - 36.0 G/DL 31.5 (L) MPV Latest Ref Range: 7 - 11 FL 8.5 RDW Latest Ref Range: 11 - 15 % 15.9 (H) Platelet Estimate Unknown MKD DEC ANISO Unknown PRESENT POLY Unknown PRESENT INR Latest Ref Range: 0.8 - 1.2 1.5 (H) APTT Latest Ref Range: 24.0 - 36.5 SEC 33.1 Fibrinogen Latest Ref Range: 200 - 400 MG/DL 354 Specimen/LLM Unknown BLOOD Leuk/Lymph Interpretation Unknown SEE PATHOLOGY REPORT Sodium Latest Ref Range: 137 - 147 MMOL/L 139 Potassium Latest Ref Range: 3.5 - 5.1 MMOL/L 3.5 Chloride Latest Ref Range: 98 - 110 MMOL/L 106 CO2 Latest Ref Range: 21 - 30 MMOL/L 22 Anion Gap Latest Ref Range: 3 - 12 11 Blood Urea Nitrogen Latest Ref Range: 7 - 25 MG/DL 20 Creatinine Latest Ref Range: 0.4 - 1.24 MG/DL 1.63 (H) eGFR Non Latest Ref Range: >60 mL/min 41 (L) eGFR Latest Ref Range: >60 mL/min 50 (L) Glucose Latest Ref Range: 70 - 100 MG/DL 114 (H) Calcium Latest Ref Range: 8.5 - 10.6 MG/DL 8.7 Uric Acid Latest Ref Range: 4.0 - 8.0 MG/DL 9.6 (H) Phosphorus Latest Ref Range: 2.0 - 4.5 MG/DL 4.8 (H) Lactate Dehydrogenase Latest Ref Range: 100 - 210 U/L 569 (H) Record Check Unknown 2ND TYPE REQUIRED ABO/RH(D) Unknown B POS Antibody Screen Unknown NEG Crossmatch Expires Unknown 02/09/2020 Units Ordered Unknown 2 Blood Component Type Unknown RBC,ADSOL,LEUKO REDUCED,IRRADIATED Crossmatch Result Unknown COMPATIBLE,ELECTRONIC Transfusion Status Unknown OK TO TRANSFUSE Unit Division Unknown 0 FLOW CYTOMETRY Unknown Rpt Chromosomes Blood Hematologic Unknown Cytogenetics Report Available in [facility] Chromosomes Fish DNA Probe-Blood Unknown Cytogenetics Report Available in [facility] Brief Hospital Course: The patient was admitted and the following issues were a ddressed during this hospitalization: (with pertinent details). 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 Cameron Abrams, [place] Chemotherapy plan:Dacogen 10 day,? venetoclax based on ability to get Fivetran Rx coverage through [place], so unlikely to get cycle 1 Consider LP/IT chemo at some point due to monocytic features, once WBC<1 Continues with circulating blasts, so will delay IT chemo for now. Most likely will be able to get at end of cycle 1 when bone marrow bx is due Dacogen 10 day induction Day 15 Pending our cytogenetics and 141 gene panel NGS testing. Heme:Pancytopenia due to chemo Bleeding behind left TM: Symptoms started 02/04. 02/18 take transfusion threshold b ack to 10K Npzhnizcrvo19/06/20: PRBC. Not transplant candidate, does not require irradi ated products Monitor CBC for transfusion needs, goal Hgb>7 and platelets >10K FEN/Renal: Acute kidney injury:renally adjust medications especially in window of TLS. Ba kishoreine creatinine 1, Creatinine clearance 02/23/20: 73 Hyperuricemia: s/p rasburicase 3mg IV x 1 based on outside lab Allopurinol 300mg po dailyuntil WBC<1 Monitor I/O/daily weights and use lasix prn to maintain euvolemia - gave Lasix , 02/19 with -1.6L High goal electrolyte replacement Due to cardiac history - K replacements Immunocompromised diet ID:Febrile 38.8 on 02/08, afebrile since Cultures drawn, empiric cefepime initiated. Covid 19 Negative, low pre-test probability 02/14 CXR with progression of bilateral lower lung pneumonia. Chest CT 02/14 wit h Multifocal patchy groundglass opacities and interstitial prominence throughout both lungs, greater on the right, which are nonspecific though sugges tive of multifocal atypical pneumonia and/or pulmonary edema - changed prophy fluconazole to posaconazole, cefepime to meropenem. - checked fungitell, galact - negative. RVP negative Consulted pulm re: Bronchoscopy. COVID testing neg x 2 S/p BAL on 02/17 - results negative so far - RVP, CMV Plan for empiric IV abx to complete 02/21,thentransition to oral prophy. Drug Dates Cefepime 02/08-02/14 Posa 02/14-current Meropenem 02/14 - 02/21 Continue prophylactic anti-infectives: acyclovir, levaquin, [facility] CV:Type 2 NSTEMI: echo Ef 60%, no significant abnormalities Chest pain: cardiology consulted, recs from 02.08:No further recommendations, n ot a candidate for cardiac angiogram. 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 If re quires lipid domestic helper in future once leukemia stabilized, could change to crestor in future if appropriate to resume (not currently appropriate) and still taking posaconazole. Echo 12/2019 outside: EF 55-60%, mild grade 1 diastolic dysfunction Pulm: Intermittent oxygen requirements, better after lasix. Albuterol nebs prn . Chest CT 02/14 with multi-focal pneumonia - see ID above GI:Nausea:improving with anti-emetics Hx of bowel obstruction s/p colostomy and reanastomosis. Intermittent constipa tion, improving Monitor for GI distress and prn antiemetics available. Monitor liver function Elevated Tbili -down to 1.8, u/s liver neg so most likely due to chemo - bili mo stly direct 02/20 Rheum: inflammatory arthritis: On Humira 40mg sq every 2 weeks, next due 02/09/2020: hold with admission/AML MSK: left fourth toe bruising: appears to be traumatic but with full ROM unlikel y broken, able to ambulate, monitor. : urinary urgency, incomplete emptying Started Flomax, patient previously on through a urologist. Prescribed at d/c. Neuro: Had confusion during the night 02/12- likely due to trazodone, disconti nued. Psych: Insomnia: improved with 10mg melatonin, schedule qhs Monitor and offer support as needed. Condition at Discharge: Stable Discharge Diagnoses: Hospital Problems Active Problems Paroxysmal A-fib (HCC) CAD (coronary artery disease) Inflammatory arthritis Hyperlipidemia AML (acute myeloblastic leukemia) (HCC) Pancytopenia due to antineoplastic chemotherapy (HCC) Pneumonia of both lungs due to infectious organism Surgical Procedures: None Significant Diagnostic Studies and Procedures: noted in brief hospital course Consults: Cardiology, Otolaryngology and Pulmonary Patient Disposition: Home Patient instructions/medications: Other Diet Immunosuppressed diet, wash all fruits and vegetables, avoid raw meat. If you have questions about your diet after you go home, you can call a dietitia n at [phone]. IMPLEMENT GENERAL IV LINE FLUSH PROTOCOL Standing Status: Standing Number of Occurrences: 1 Standing Exp. Date: 02/08/21 IMPLEMENT MEDICATION INFUSION REACTION, ANAPHYLAXIS, AND HYPERSENSITIVITY MANAGE MENT Standing Status: Standing Number of Occurrences: 1 Standing Exp. Date: 02/08/21 IMPLEMENT CHEMOTHERAPY EXTRAVASATION MANAGEMENT Standing Status: Standing Number of Occurrences: 1 Standing Exp. Date: 02/08/21 Implement Alteplase Central Venous Access Device Declotting Protocol Standing Status: Standing Number of Occurrences: 1 Standing Exp. Date: 02/08/21 Report These Signs and Symptoms Please contact your doctor if you have any of the following symptoms: temperatu re higher than 100.4 degrees F, uncontrolled pain, persistent nausea and/or vomi ting, difficulty breathing, chest pain, severe abdominal pain or unable to urina te Questions About Your Stay For questions or concerns regarding your hospital stay, call [phone]. Discharging attending physician: KIMBERLEY STARK [[id number]] Other Activity Restrictions Neutropenic precautions, avoid large crowds, good handwashing. PICC Line Mcc Care Instructions: *Catheter must be covered with plastic wrap before showering. Never submerge th e catheter in a bathtub, hot tub, or swimming pool. *The dressing and biopatch must be changed every 7 days or as needed if it becom es wet or soiled. The injection caps should be changed every 7 days. Please re isaías to your physician, clinic, or home health nurse for dressing or cap change i nstructions. Current Discharge Medication List START taking these medications Details acyclovir (ZOVIRAX) 800 mg tablet Take one tablet by mouth every 12 hours. Qty: 60 tablet, Refills: 3 PRESCRIPTION TYPE: Print allopurinoL (ZYLOPRIM) 300 mg tablet Take one tablet by mouth daily. Take with f ood. Qty: 10 tablet, Refills: 0 PRESCRIPTION TYPE: Print amLODIPine (NORVASC) 5 mg tablet Take one tablet by mouth daily. Qty: 90 tablet, Refills: 3 PRESCRIPTION TYPE: Print levoFLOXacin (LEVAQUIN) 750 mg tablet Take one tablet by mouth every 24 hours. I ndications: BMT Prophylaxis per Algorithm Qty: 30 tablet, Refills: 3 PRESCRIPTION TYPE: Print posaconazole EC (NOXAFIL) 100 mg tablet Take three tablets by mouth daily with b reakfast. Qty: 90 tablet, Refills: 3 PRESCRIPTION TYPE: Print tamsulosin (FLOMAX) 0.4 mg capsule Take one capsule by mouth daily after breakfa st. Do not crush, chew or open capsules. Take 30 minutes following the same meal each day. Qty: 30 capsule, Refills: 3 PRESCRIPTION TYPE: Print CONTINUE these medications which have been CHANGED or REFILLED Details adalimumab (CF) (HUMIRA PEN) 40 mg/0.4 mL injection PEN kit Inject 0.4 mL under the skin every 14 days. Hold while on chemotherapy. Qty: 0.8 mL, Refills: 0 PRESCRIPTION TYPE: No Print Comments: Note: This is the Humira 40mg/0.4mL citrate-free pen kit product. metoprolol XL (TOPROL XL) 25 mg extended release tablet Take one tablet by mouth daily. Qty: 90 tablet PRESCRIPTION TYPE: No Print CONTINUE these medications which have NOT CHANGED Details clobetasoL (TEMOVATE) 0.05 % topical solution Apply topically to affected area twice daily. PRESCRIPTION TYPE: Historical Med fexofenadine (LARISSA) 180 mg tablet Take 180 mg by mouth daily. PRESCRIPTION TYPE: Historical Med ketoconazole (NIZORAL) 2 % topical shampoo Apply topically to affected area twi ce weekly. Apply topically to affected area of damp skin, lather, leave on 5 min utes, and rinse. Repeat PRESCRIPTION TYPE: Historical Med The following medications were removed from your list. This list includes medic ations discontinued this stay and those removed from your prior med list in our system atorvastatin (LIPITOR) 80 mg tablet lisinopriL (ZESTRIL) 20 mg tablet prazosin (MINIPRESS) 2 mg capsule Pending items needing follow up: Local clinic apt tomorrow for labs only. Clinic visit with Dr. Abrams on . Scrips faxed to [facility]. Signed: Gypsy Lawson Ratna, COMFORT 02/23/2020 cc: Primary Care Physician: Deny Chilel Verified Referring physicians: Cameron Abrams MD Additional provider(s): documented in this encounter Discharge Instructions * Discharge Instr - Case Management* Lucie Villasenor RN - 02/18/2020 1:24 PM CDT You are scheduled to see Dr Cameron Abrams [phone] fax [phone] on y 02/26/20 at 3:00 PM Please arrive by 2:30PM You will need to have labs drawn at [facility] [phone] fax [phone] Please arrive any time between 8:00 AM and 12:00. Your physician has faxed lab orders to [facility] in advance documented in this encounter Medications at Time of Discharge Start Date End Date Medication Sig Dispensed Refills 02/20/2020 acyclovir (ZOVIRAX) 800 Take one 60 tablet 3 mg tablet tablet by mouth every 12 hours. 02/23/2020 adalimumab (CF) (HUMIRA Inject 0.4 mL 0.8 mL 0 PEN) 40 mg/0.4 mL under the injection PEN kit skin every 14 days. Hold while on chemotherapy. 02/20/2020 allopurinoL (ZYLOPRIM) Take one 10 tablet 0 300 mg tablet tablet by mouth daily. Take with food. 02/21/2020 amLODIPine (NORVASC) 5 mg Take one 90 tablet 3 tablet tablet by mouth daily. clobetasoL (TEMOVATE) Apply 0 0.05 % topical solution topically to affected area twice daily. fexofenadine (LARISSA) Take 180 mg 0 180 mg tablet by mouth daily. ketoconazole (NIZORAL) 2 Apply 0 % topical shampoo topically to affected area twice weekly. Apply topically to affected area of damp skin, lather, leave on 5 minutes, and rinse. Repeat 02/22/2020 levoFLOXacin (LEVAQUIN) Take one 30 tablet 3 750 mg tabletIndications: tablet by BMT Prophylaxis per mouth every Algorithm 24 hours. Indications: BMT Prophylaxis per Algorithm 02/23/2020 metoprolol XL (TOPROL XL) Take one 90 tablet 0 25 mg extended release tablet by tablet mouth daily. 02/21/2020 posaconazole EC (NOXAFIL) Take three 90 tablet 3 100 mg tablet tablets by mouth daily with breakfast. 02/20/2020 tamsulosin (FLOMAX) 0.4 Take one 30 capsule 3 mg capsule capsule by mouth daily after breakfast. Do not crush, chew or open capsules. Take 30 minutes following the same meal each day. documented as of this encounter Progress Notes * Yamile South RN - 02/23/2020 1:45 PM CDT All discharge instructions reviewed with patient and patient's spouse at bedside . Bysqvnig-rw-teh Genie, on speaker phone for entire conversation as well. All medication's reviewed at length, medication calender provided. Home medication s returned to patient and placed in personal bag. S/s to notify physician nisa hutchinson by pt and spouse. All follow-up appts reviewed. All personal belongings discharged with patient. PICC line care discussed as well. All questions answe red at this time. Pt to be transported home via private vehicle by Melissa. This RN escorted patient downstairs via wheelchair. * Male, Kimberley Magana MD - 02/23/2020 7:12 AM CDT Acute Leukemia Service Progress Note Today's Date: 02/23/2020 Name: Jhony Chi Admission Date: 02/06/2020 LOS: LOS: 17 days Assessment/Plan: Active Problems: Paroxysmal A-fib (HCC) CAD (coronary artery disease) Inflammatory arthritis Hyperlipidemia AML (acute myeloblastic leukemia) (HCC) Pancytopenia due to antineoplastic chemotherapy (HCC) Pneumonia of both lungs due to infectious organism Primary diagnosis:Acute monocytic leukemia Cytogenetics/FISH: AML/ETO, CBFB, MLL negative, p53 slightly above threshold so positive 47, XY,+11 [2]/48,sl,+8, add (17)(p11.2)[cp2]/49, sdl1, +14[cp2]/47,sl, -11,+i(1 1)(p10), add(10)(p11.2)[cp3]/46, XY[11] NGS: pending Referring physician:Dr. Cameron Abrams, [place] Chemotherapy plan:Dacogen 10 day, ? venetoclax based on ability to get [facility], so unlikely to get cycle 1 Consider LP/IT chemo at some point due to monocytic features, once WBC<1 Continues with circulating blasts, so will delay IT chemo for now. Most likely will be able to get at end of cycle 1 when bone marrow bx is due Dacogen 10 day induction Day 15 Pending our cytogenetics and 141 gene panel NGS testing. Heme:Pancytopenia due to chemo Bleeding behind left TM: Symptoms started 02/04. 02/18 take transfusion threshold b ack to 10K Transfusion 02/23/20: PRBC. Not transplant candidate, does not require irradiat ed products Monitor CBC for transfusion needs, goal Hgb>7 and platelets >10K DVT Prophylaxis: SCDs,Chemical prophylaxis contraindicated due to bleeding, th rombocytopenia FEN/Renal: Acute kidney injury: renally adjust medications especially in window of TLS. Catrina nae creatinine 1, Creatinine clearance 02/23/20: 71 Hyperuricemia: s/p rasburicase 3mg IV x 1 based on outside lab Allopurinol 300mg po daily until WBC<1 Monitor I/O/daily weights and use lasix prn to maintain euvolemia - gave Lasix , 02/19 with -1.6L High goal electrolyte replacement Due to cardiac history - K replacements 0 Immunocompromised diet ID:Febrile 38.8 on 02/08, afebrile since Cultures drawn, empiric cefepime initiated. Covid 19 Negative, low pre-test probability 02/14 CXR with progression of bilateral lower lung pneumonia. Chest CT 02/14 with Multifocal patchy groundglass opacities and interstitial prominence throughout both lungs, greater on the right, which are nonspecific though sugges tive of multifocal atypical pneumonia and/or pulmonary edema - changed prophy fluconazole to posaconazole, cefepime to meropenem. - checked fungitell, galact - negative. RVP negative Consulted pulm re: Bronchoscopy. COVID testing neg x 2 S/p BAL on 02/17 - results negative so far - RVP, CMV Plan for empiric IV abx to complete 02/21, then transition to oral prophy Drug Dates Cefepime 02/08-02/14 Posa 02/14-current Meropenem 02/14 - 02/21 Continue prophylactic anti-infectives: acyclovir, levaquin, [facility] CV: Type 2 NSTEMI: echo Ef 60%, no significant abnormalities Chest pain: cardiology consulted, recs from 02.08: No further recommendations, no t a candidate for cardiac angiogram. 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 If re quires lipid domestic helper in future once leukemia stabilized, could change to crestor in future if appropriate to resume (not currently appropriate) and still taking posaconazole. Echo 12/2019 outside: EF 55-60%, mild grade 1 diastolic dysfunction Pulm: Intermittent oxygen requirements, better after lasix. Albuterol nebs prn. Chest CT 02/14 with multi-focal pneumonia - see ID above GI:Nausea: improving with anti-emetics Hx of bowel obstruction s/p colostomy and reanastomosis. Intermittent constipat ion, improving Monitor for GI distress and prn antiemetics available. Monitor liver function Elevated Tbili -down to 1.8, u/s liver neg so most likely due to chemo - check d irect bili spec in lab 02/20 Rheum: inflammatory arthritis: On Humira 40mg sq every 2 weeks, next due 02/09/2020: hold with admission/AML MSK: left fourth toe bruising: appears to be traumatic but with full ROM unlikel y broken, able to ambulate, monitor. : urinary urgency, incomplete emptying Started Flomax, patient previously on through a urologist. Prescribed at d/c. Neuro: Had confusion during the night 02/12- likely due to trazodone, discontin ued. Psych: Insomnia: improved with 10mg melatonin, schedule qhs Monitor and offer support as needed. Consider Onc/Psych Consult Code status: DNAR-Full Intervention Kimberley Male, Subjective: Jhony Chi is a 75 y.o. male. Patient feeling improved, walked in [place] yesterday. Denies nausea/vomiting. Is looking forward to going home today Review of Systems: Review of Systems Constitution: Negative for decreased appetite. Respiratory: Positive for shortness of breath (with exertion). Gastrointestinal: Negative for abdominal pain, nausea and vomiting. Objective: Medications: Scheduled Meds:acyclovir (ZOVIRAX) tablet 800 mg, 800 mg, Oral, BID allopurinoL (ZYLOPRIM) tablet 300 mg, 300 mg, Oral, QDAY amLODIPine (NORVASC) tablet 5 mg, 5 mg, Oral, QDAY levoFLOXacin (LEVAQUIN) tablet 750 mg, 750 mg, Oral, Q24H* metoprolol tartrate (LOPRESSOR) tablet 12.5 mg, 12.5 mg, Oral, BID posaconazole EC (NOXAFIL) tablet 300 mg, 300 mg, Oral, QDAY w/breakfast sodium chloride PF 0.9% flush 5-10 mL, 5-10 mL, Flush, FLUSH TID tamsulosin (FLOMAX) capsule 0.4 mg, 0.4 mg, Oral, QDAY after breakfast Continuous Infusions: PRN and Respiratory Meds:acetaminophen Q6H PRN, albuterol 0.5% Q4H PRN, alteplas e PRN (Brand Recorder from Rx), alum/mag hydroxide/simeth Q6H PRN, benzonatate TID PRN, dextran 70/hypromellose Q8H PRN, guaiFENesin Q6H PRN, magnesium sulfate 4 g/50 mL PRN, melatonin QHS PRN, oxymetazoline BID PRN, polyethylene glycol 3350 QDAY PRN, potassium chloride in water PRN (Brand Recorder from Rx) OR potassium chloride SR PRN (Brand Recorder from Rx), prochlorperazine Q6H PRN OR prochlorperazine Q6H PRN, senna/docusate QDAY PRN, simethicone Q6H PRN, sodium chloride 0.9 % TKO inf usion PRN, sodium chloride 0.9% irrigation bottle PRN, sodium phosphate IVPB VT N (Brand Recorder from Rx), temazepam QHS PRN, traMADoL Q6H PRN Vital Signs: Last Filed Vital Signs: 24 Hour Range BP: 143/67 (02/22 645) Temp: 36.7 C (98.1 F) (02/22 645) Pulse: 84 (02/22 645) Respirations: 20 PER MINUTE (02/22 645) SpO2: 96 % (02/22 645) BP: (128-143)/(51-67) Temp: [36.6 C (97.8 F)-37 C (98.6 F)] Pulse: [75-94] Respirations: [18 PER MINUTE-26 PER MINUTE] SpO2: [92 %-97 %] Intensity Pain Scale (Self Report): 5 Verbal Pain Description: No Pain Vitals: 02/21/20 0410 02/22/20 0205 02/23/20 0158 Weight: 116.3 kg (256 lb 6.3 oz) 114.2 kg (251 lb 12.3 oz) 115.2 kg (253 lb 15.5 oz) Intake/Output Summary: (Last 24 hours) Intake/Output Summary (Last 24 hours) at 02/23/2020 07 Last data filed at 02/23/2020 0614 Gross per 24 hour Intake 2274.25 ml Output 2650 ml Net -375.75 ml Performance Status (Karnofsky): 70% Cares for self; unable to do normal activit y, or active work ECOG PS: 2 Physical Exam Vitals signs and nursing note reviewed. Constitutional: Appearance: Normal appearance. He is not ill-appearing. HENT: Mouth/Throat: Mouth: Mucous membranes are moist. Pharynx: No oropharyngeal exudate. Eyes: General: No scleral icterus. Conjunctiva/sclera: Conjunctivae normal. Cardiovascular: Rate and Rhythm: Normal rate and regular rhythm. Heart sounds: No murmur. Pulmonary: Effort: No respiratory distress. Breath sounds: Normal breath sounds. Abdominal: General: There is no distension. Palpations: Abdomen is soft. Tenderness: There is no abdominal tenderness. Musculoskeletal: General: No tenderness ( ). Skin: General: Skin is warm. Neurological: Mental Status: He is alert. Lab Review: CBC w diff Lab Results Component Value Date/Time WBC 2.0 (L) 02/23/2020 02:00 AM RBC 2.11 (L) 02/23/2020 02:00 AM HGB 6.8 (L) 02/23/2020 02:00 AM HCT 19.6 (L) 02/23/2020 02:00 AM MCV 93.0 02/23/2020 02:00 AM MCH 32.1 02/23/2020 02:00 AM MCHC 34.5 02/23/2020 02:00 AM RDW 15.1 (H) 02/23/2020 02:00 AM PLTCT 14 (LL) 02/23/2020 02:00 AM MPV 7.0 02/23/2020 02:00 AM Lab Results Component Value Date/Time NEUT 21 (L) 02/23/2020 02:00 AM ANC 0.40 (L) 02/23/2020 02:00 AM LYMA 38 02/23/2020 02:00 AM ALC 0.80 (L) 02/23/2020 02:00 AM NISHANT 35 (H) 02/23/2020 02:00 AM AMC 0.70 02/23/2020 02:00 AM EOSA 3 02/23/2020 02:00 AM AEC 0.00 02/23/2020 02:00 AM BASA 3 (H) 02/23/2020 02:00 AM ABC 0.10 02/23/2020 02:00 AM Comprehensive Metabolic Profile Lab Results Component Value Date/Time NA 135 (L) 02/23/2020 02:00 AM K 3.7 02/23/2020 02:00 AM CL 103 02/23/2020 02:00 AM CO2 25 02/23/2020 02:00 AM GAP 7 02/23/2020 02:00 AM BUN 20 02/23/2020 02:00 AM CR 1.11 02/23/2020 02:00 AM GLU 99 02/23/2020 02:00 AM Lab Results Component Value Date/Time CA 8.3 (L) 02/23/2020 02:00 AM PO4 4.3 02/23/2020 02:00 AM ALBUMIN 2.9 (L) 02/23/2020 02:00 AM TOTPROT 5.8 (L) 02/23/2020 02:00 AM ALKPHOS 164 (H) 02/23/2020 02:00 AM AST 20 02/23/2020 02:00 AM ALT 20 02/23/2020 02:00 AM TOTBILI 1.8 (H) 02/23/2020 02:00 AM GFR >60 02/23/2020 02:00 AM GFRAA >60 02/23/2020 02:00 AM Radiology Review: Pertinent radiology reviewed and discussed in assessment and plan. Kimberley Stark MD Pager [phone] * Lila Arias - 02/23/2020 6:39 AM CDT Shift: Night 02/21-02/20 NEWS Score: 2002-3 (RR, O2sat) 2227-0 0158-1 (O2sat) 0519-5 (RR, O2sat) 0547-4 (RR, O2sat) Pain: No c/o pain this shift upon assessment Nutrition: Immunosuppressed diet, decreased appetite since chemo per pt. Fair fl uid intake GI/: No N/V this shift. Voiding adequate amounts of clear, shannon colored urine w/o genitourinary symptoms. Last BM 02/21 w/o difficulty. Activity: Up w/ SB assist and walker. No dizziness or lightheadedness, some SOB while walking 1/2 lap around the unit. Last Shower: 02/21 New Events or Follow-up: Hgb 6.8, RBCs transfusing. K+ 3.7- being replaced * Male, Kmiberley Magana MD - 02/22/2020 7:24 AM CDT Acute Leukemia Service Progress Note Today's Date: 02/22/2020 Name: Jhony Chi Admission Date: 02/06/2020 LOS: LOS: 16 days Assessment/Plan: Active Problems: Paroxysmal A-fib (HCC) CAD (coronary artery disease) Inflammatory arthritis Hyperlipidemia AML (acute myeloblastic leukemia) (HCC) Pancytopenia due to antineoplastic chemotherapy (HCC) Pneumonia of both lungs due to infectious organism Primary diagnosis:Acute monocytic leukemia Cytogenetics/FISH: AML/ETO, CBFB, MLL negative, p53 slightly above threshold so positive 47, XY,+11 [2]/48,sl,+8, add (17)(p11.2)[cp2]/49, sdl1, +14[cp2]/47,sl, -11,+i(1 1)(p10), add(10)(p11.2)[cp3]/46, XY[11] NGS: pending Referring physician:Dr. Cameron Abrams, [place] Chemotherapy plan:Dacogen 10 day, ? venetoclax based on ability to get however Rx coverage [facility], so unlikely to get cycle 1 Consider LP/IT chemo at some point due to monocytic features, once WBC<1 Continues with circulating blasts, so will delay IT chemo for now. Most likely will be able to get at end of cycle 1 when bone marrow bx is due Dacogen 10 day induction Day 14 Pending our cytogenetics and 141 gene panel NGS testing. Heme:Pancytopenia due to chemo Bleeding behind left TM: Symptoms started 02/04. 02/18 take transfusion threshold b ack to 10K Transfusion 02/22/20: Platelets Monitor CBC for transfusion needs, goal Hgb>7 and platelets >10K DVT Prophylaxis: SCDs,Chemical prophylaxis contraindicated due to bleeding, th rombocytopenia FEN/Renal: Acute kidney injury: renally adjust medications especially in window of TLS. Bas nae creatinine 1, Creatinine clearance 02/22/20: 70.2 Hyperuricemia: s/p rasburicase 3mg IV x 1 based on outside lab Allopurinol 300mg po daily until WBC<1 Monitor I/O/daily weights and use lasix prn to maintain euvolemia - gave Lasix , 02/19 with -1.6L High goal electrolyte replacement Due to cardiac history - K replacements 02/21/ 0 Immunocompromised diet ID:Febrile 38.8 on 02/08, afebrile since Cultures drawn, empiric cefepime initiated. Covid 19 Negative, low pre-test probability 02/14 CXR with progression of bilateral lower lung pneumonia. Chest CT 02/14 with Multifocal patchy groundglass opacities and interstitial prominence throughout both lungs, greater on the right, which are nonspecific though sugges tive of multifocal atypical pneumonia and/or pulmonary edema - changed prophy fluconazole to posaconazole, cefepime to meropenem. - checked fungitell, galact - negative. RVP negative Consulted pulm re: Bronchoscopy. COVID testing neg x 2 S/p BAL on 02/17 - results negative so far - RVP, CMV Plan for empiric IV abx to complete 02/21, then transition to oral prophy Drug Dates Cefepime 02/08-02/14 Posa 02/14-current Meropenem 02/14 - 02/21 Continue prophylactic anti-infectives: acyclovir, levaquin CV: Type 2 NSTEMI: echo Ef 60%, no significant abnormalities Chest pain: cardiology consulted, recs from 02.08: No further recommendations, no t a candidate for cardiac angiogram. 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 Echo 12/2019 outside: EF 55-60%, mild grade 1 diastolic dysfunction Pulm: Intermittent oxygen requirements, better after lasix. Albuterol nebs prn. Chest CT 02/14 with multi-focal pneumonia - see ID above GI:Nausea: improving with anti-emetics Hx of bowel obstruction s/p colostomy and reanastomosis. Intermittent constipat ion, improving Monitor for GI distress and prn antiemetics available. Monitor liver function Elevated Tbili -down to 2.0, u/s liver neg so most likely due to chemo - check d irect bili spec in lab 02/20 Rheum: inflammatory arthritis: On Humira 40mg sq every 2 weeks, next due 02/09/2020: hold with admission/AML MSK: left fourth toe bruising: appears to be traumatic but with full ROM unlikel y broken, able to ambulate, monitor. : urinary urgency, incomplete emptying Started Flomax, patient previously on through a urologist. Neuro: Had confusion during the night 02/12- likely due to trazodone, discontin ued. Psych: Insomnia: improved with 10mg melatonin, schedule qhs Monitor and offer support as needed. Consider Onc/Psych Consult Code status: DNAR-Full Intervention Kimberley Male, Subjective: Jhony Chi is a 75 y.o. male. Feeling well, some sob with mask and walking around but generally feeling better . Denies nausea/vomiting. Review of Systems: Review of Systems Constitution: Negative for fever. Cardiovascular: Positive for leg swelling. Respiratory: Positive for shortness of breath. Gastrointestinal: Negative for abdominal pain. Objective: Medications: Scheduled Meds:acyclovir (ZOVIRAX) tablet 800 mg, 800 mg, Oral, BID allopurinoL (ZYLOPRIM) tablet 300 mg, 300 mg, Oral, QDAY amLODIPine (NORVASC) tablet 5 mg, 5 mg, Oral, QDAY levoFLOXacin (LEVAQUIN) tablet 750 mg, 750 mg, Oral, Q24H* metoprolol tartrate (LOPRESSOR) tablet 12.5 mg, 12.5 mg, Oral, BID posaconazole EC (NOXAFIL) tablet 300 mg, 300 mg, Oral, QDAY w/breakfast sodium chloride PF 0.9% flush 5-10 mL, 5-10 mL, Flush, FLUSH TID tamsulosin (FLOMAX) capsule 0.4 mg, 0.4 mg, Oral, QDAY after breakfast Continuous Infusions: PRN and Respiratory Meds:acetaminophen Q6H PRN, albuterol 0.5% Q4H PRN, alteplas e PRN (Brand Recorder from Rx), alum/mag hydroxide/simeth Q6H PRN, benzonatate TID PRN, dextran 70/hypromellose Q8H PRN, guaiFENesin Q6H PRN, magnesium sulfate 4 g/50 mL PRN, melatonin QHS PRN, oxymetazoline BID PRN, polyethylene glycol 3350 QDAY PRN, potassium chloride in water PRN (Brand Recorder from Rx) OR potassium chloride SR PRN (Brand Recorder from Rx), prochlorperazine Q6H PRN OR prochlorperazine Q6H PRN, senna/docusate QDAY PRN, simethicone Q6H PRN, sodium chloride 0.9 % TKO inf usion PRN, sodium chloride 0.9% irrigation bottle PRN, sodium phosphate IVPB VT N (Brand Recorder from Rx), temazepam QHS PRN, traMADoL Q6H PRN Vital Signs: Last Filed Vital Signs: 24 Hour Range BP: 135/69 (02/21 635) Temp: 36.9 C (98.5 F) (02/21 635) Pulse: 83 (02/21 635) Respirations: 18 PER MINUTE (02/21 635) SpO2: 93 % (02/21 635) BP: (124-145)/(47-69) Temp: [36.9 C (98.4 F)-37.2 C (99 F)] Pulse: [77-104] Respirations: [16 PER MINUTE-22 PER MINUTE] SpO2: [93 %-98 %] Intensity Pain Scale (Self Report): 5 Verbal Pain Description: No Pain Vitals: 02/20/20 0206 02/21/20 0410 02/22/20 0205 Weight: 118.4 kg (261 lb 0.4 oz) 116.3 kg (256 lb 6.3 oz) 114.2 kg (251 lb 12.3 oz) Intake/Output Summary: (Last 24 hours) Intake/Output Summary (Last 24 hours) at 02/22/2020 0724 Last data filed at 02/22/2020 0700 Gross per 24 hour Intake 1403 ml Output 1270 ml Net 133 ml Performance Status (Karnofsky): 70% Cares for self; unable to do normal activit y, or active work ECOG PS: 2 Physical Exam Vitals signs and nursing note reviewed. Constitutional: Appearance: Normal appearance. He is not ill-appearing. HENT: Mouth/Throat: Mouth: Mucous membranes are moist. Pharynx: No oropharyngeal exudate. Eyes: General: No scleral icterus. Conjunctiva/sclera: Conjunctivae normal. Cardiovascular: Rate and Rhythm: Normal rate and regular rhythm. Heart sounds: No murmur. Pulmonary: Effort: No respiratory distress. Breath sounds: Normal breath sounds. Abdominal: General: There is no distension. Palpations: Abdomen is soft. Tenderness: There is no abdominal tenderness. Musculoskeletal: General: No tenderness ( ). Skin: General: Skin is warm. Neurological: Mental Status: He is alert. Lab Review: CBC w diff Lab Results Component Value Date/Time WBC 2.3 (L) 02/22/2020 02:14 AM RBC 2.20 (L) 02/22/2020 02:14 AM HGB 7.1 (L) 02/22/2020 02:14 AM HCT 20.3 (L) 02/22/2020 02:14 AM MCV 91.9 02/22/2020 02:14 AM MCH 32.3 02/22/2020 02:14 AM MCHC 35.1 02/22/2020 02:14 AM RDW 15.5 (H) 02/22/2020 02:14 AM PLTCT 8 (LL) 02/22/2020 02:14 AM MPV 7.3 02/22/2020 02:14 AM Lab Results Component Value Date/Time ANC 0.53 (L) 02/22/2020 02:14 AM Comprehensive Metabolic Profile Lab Results Component Value Date/Time NA 137 02/22/2020 02:14 AM K 3.6 02/22/2020 02:14 AM CL 103 02/22/2020 02:14 AM CO2 26 02/22/2020 02:14 AM GAP 8 02/22/2020 02:14 AM BUN 21 02/22/2020 02:14 AM CR 1.10 02/22/2020 02:14 AM GLU 100 02/22/2020 02:14 AM Lab Results Component Value Date/Time CA 8.3 (L) 02/22/2020 02:14 AM PO4 4.1 02/22/2020 02:14 AM ALBUMIN 2.9 (L) 02/22/2020 02:14 AM TOTPROT 5.9 (L) 02/22/2020 02:14 AM ALKPHOS 178 (H) 02/22/2020 02:14 AM AST 23 02/22/2020 02:14 AM ALT 23 02/22/2020 02:14 AM TOTBILI 2.0 (H) 02/22/2020 02:14 AM GFR >60 02/22/2020 02:14 AM GFRAA >60 02/22/2020 02:14 AM Radiology Review: Pertinent radiology reviewed and discussed in assessment and plan. Kimberley Stark MD Pager [phone] * Kenny Ferguson - 02/21/2020 9:48 PM CDT Shift: Night [id number] NEWS Score: 2,0,0 Pain: Pt reports no pain Nutrition: Immunosuppressed diet GI/: Voids , LBM 02/21/2020, Pt voiding adequate amounts of shannon urine. Activity: Assist X1, with walker. Family: not present at bedside Last Shower: 02/21/2020 New Events or Follow-up: transfused platelets per diffuser operator. Platelets start time 05. * Male, Kimberley Magana MD - 02/21/2020 7:05 AM CDT Acute Leukemia Service Progress Note Today's Date: 02/21/2020 Name: Jhony Chi Admission Date: 02/06/2020 LOS: LOS: 15 days Assessment/Plan: Active Problems: Paroxysmal A-fib (HCC) CAD (coronary artery disease) Inflammatory arthritis Hyperlipidemia AML (acute myeloblastic leukemia) (HCC) Pancytopenia due to antineoplastic chemotherapy (HCC) Pneumonia of both lungs due to infectious organism Primary diagnosis:Acute monocytic leukemia Cytogenetics/FISH: AML/ETO, CBFB, MLL negative, p53 slightly above threshold so positive 47, XY,+11 [2]/48,sl,+8, add (17)(p11.2)[cp2]/49, sdl1, +14[cp2]/47,sl, -11,+i(1 1)(p10), add(10)(p11.2)[cp3]/46, XY[11] NGS: pending Referring physician:Dr. Cameron Abrams, [place] Chemotherapy plan:Dacogen 10 day, ? venetoclax based on ability to get however Rx coverage [facility], so unlikely to get cycle 1 Consider LP/IT chemo at some point due to monocytic features, once WBC<1 Continues with circulating blasts, so will delay IT chemo for now. Most likely will be able to get at end of cycle 1 when bone marrow bx is due Dacogen 10 day induction Day 13 Pending our cytogenetics and 141 gene panel NGS testing. Heme:Pancytopenia due to chemo Bleeding behind left TM: Symptoms started 02/04. 02/18 take transfusion threshold b ack to 10K Transfusion 02/21/20: None Monitor CBC for transfusion needs, goal Hgb>7 and platelets >10K DVT Prophylaxis: SCDs,Chemical prophylaxis contraindicated due to bleeding, th rombocytopenia FEN/Renal: Acute kidney injury: renally adjust medications especially in window of TLS. Catrina soni creatinine 1, Creatinine clearance 02/21/20: 70.2 Hyperuricemia: s/p rasburicase 3mg IV x 1 based on outside lab Allopurinol 300mg po daily until WBC<1 Monitor I/O/daily weights and use lasix prn to maintain euvolemia - gave Lasix , 02/19 with -1.6L High goal electrolyte replacement Due to cardiac history - K replacements 0 Immunocompromised diet ID:Febrile 38.8 on 02/08, afebrile since Cultures drawn, empiric cefepime initiated. Covid 19 Negative, low pre-test probability 02/14 CXR with progression of bilateral lower lung pneumonia. Chest CT 02/14 with Multifocal patchy groundglass opacities and interstitial prominence throughout both lungs, greater on the right, which are nonspecific though sugges tive of multifocal atypical pneumonia and/or pulmonary edema - changed prophy fluconazole to posaconazole, cefepime to meropenem. - checked fungitell, galact - negative. RVP negative Consulted pulm re: Bronchoscopy. COVID testing neg x 2 S/p BAL on 02/17 - results negative so far - RVP, CMV Plan for empiric IV abx to complete 02/21, then transition to oral prophy Drug Dates Cefepime 02/08-02/14 Posa 02/14-current Meropenem 02/14 - current Continue prophylactic anti-infectives: acyclovir CV: Type 2 NSTEMI: echo Ef 60%, no significant abnormalities Chest pain: cardiology consulted, recs from 02.08: No further recommendations, no t a candidate for cardiac angiogram. 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 Echo 12/2019 outside: EF 55-60%, mild grade 1 diastolic dysfunction Pulm: Intermittent oxygen requirements, better after lasix. Albuterol nebs prn. Chest CT 02/14 with multi-focal pneumonia - see ID above GI:Nausea: improving with anti-emetics Hx of bowel obstruction s/p colostomy and reanastomosis. Intermittent constipat ion, improving Monitor for GI distress and prn antiemetics available. Monitor liver function Elevated Tbili - up to 2.5, u/s liver neg so most likely due to chemo - check di rect bili spec in lab 02/20 Rheum: inflammatory arthritis: On Humira 40mg sq every 2 weeks, next due 02/09/2020: hold with admission/AML MSK: left fourth toe bruising: appears to be traumatic but with full ROM unlikel y broken, able to ambulate, monitor. : urinary urgency, incomplete emptying Started Flomax, patient previously on through a urologist. Neuro: Had confusion during the night 02/12- likely due to trazodone, discontin ued. Psych: Insomnia: improved with 10mg melatonin, schedule qhs Monitor and offer support as needed. Consider Onc/Psych Consult Code status: DNAR-Full Intervention Kimberley Stark MD Subjective: Jhony Chi is a 75 y.o. male. Patient feeling well, denies bleeding/bruising. States his breathing is feeling much better. He has developed pain in his left 4th toe with bruising. States does not remembe r trauma Review of Systems: Review of Systems Constitution: Negative for decreased appetite. Hematologic/Lymphatic: Bruises/bleeds easily. Musculoskeletal: Positive for joint pain (left 4th toe). Objective: Medications: Scheduled Meds:acyclovir (ZOVIRAX) tablet 800 mg, 800 mg, Oral, BID allopurinoL (ZYLOPRIM) tablet 300 mg, 300 mg, Oral, QDAY amLODIPine (NORVASC) tablet 5 mg, 5 mg, Oral, QDAY DEXTRAN 70-HYPROMELLOSE (PF) 0.1-0.3 % OP DPET (Cabinet Override), , , NOW [START ON 02/22/2020] levoFLOXacin (LEVAQUIN) tablet 750 mg, 750 mg, Oral, Q24H* meropenem (MERREM) 1 g in sodium chloride 0.9% (NS) 100 mL IVPB (MB+)(EXTENDED I NFUSION), 1 g, Intravenous, Q8H* metoprolol tartrate (LOPRESSOR) tablet 12.5 mg, 12.5 mg, Oral, BID posaconazole EC (NOXAFIL) tablet 300 mg, 300 mg, Oral, QDAY w/breakfast sodium chloride PF 0.9% flush 5-10 mL, 5-10 mL, Flush, FLUSH TID tamsulosin (FLOMAX) capsule 0.4 mg, 0.4 mg, Oral, QDAY after breakfast Continuous Infusions: PRN and Respiratory Meds:acetaminophen Q6H PRN, albuterol 0.5% Q4H PRN, alteplas e PRN (Brand Recorder from Rx), alum/mag hydroxide/simeth Q6H PRN, benzonatate TID PRN, dextran 70/hypromellose Q8H PRN, guaiFENesin Q6H PRN, magnesium sulfate 4 g/50 mL PRN, melatonin QHS PRN, oxymetazoline BID PRN, polyethylene glycol 3350 QDAY PRN, potassium chloride in water PRN (Brand Recorder from Rx) OR potassium chloride SR PRN (Brand Recorder from Rx), prochlorperazine Q6H PRN OR prochlorperazine Q6H PRN, senna/docusate QDAY PRN, simethicone Q6H PRN, sodium chloride 0.9 % TKO inf usion PRN, sodium chloride 0.9% irrigation bottle PRN, sodium phosphate IVPB VT N (Brand Recorder from Rx), temazepam QHS PRN, traMADoL Q6H PRN Vital Signs: Last Filed Vital Signs: 24 Hour Range BP: 122/61 (02/20 650) Temp: 36.7 C (98.1 F) (02/20 0650) Pulse: 86 (02/20 0650) Respirations: 20 PER MINUTE (04/04 0650) SpO2: 94 % (02/20 650) BP: (122-152)/(46-70) Temp: [36.7 C (98 F)-37.1 C (98.8 F)] Pulse: [77-96] Respirations: [18 PER MINUTE-22 PER MINUTE] SpO2: [94 %-98 %] Intensity Pain Scale (Self Report): 5 Verbal Pain Description: No Pain Vitals: 02/19/20 0154 02/20/20 0206 02/21/20 0410 Weight: 118.4 kg (261 lb 0.4 oz) 118.4 kg (261 lb 0.4 oz) 116.3 kg (256 lb 6.3 o z) Intake/Output Summary: (Last 24 hours) Intake/Output Summary (Last 24 hours) at 02/21/2020 07 Last data filed at 02/21/2020 0556 Gross per 24 hour Intake 2016 ml Output 3610 ml Net -1594 ml Performance Status (Karnofsky): 80% Normal activity with effort; some symptoms of disease ECOG PS: 1 Physical Exam Vitals signs and nursing note reviewed. Constitutional: Appearance: Normal appearance. He is not ill-appearing. HENT: Mouth/Throat: Mouth: Mucous membranes are moist. Pharynx: No oropharyngeal exudate. Eyes: General: No scleral icterus. Conjunctiva/sclera: Conjunctivae normal. Cardiovascular: Rate and Rhythm: Normal rate and regular rhythm. Heart sounds: No murmur. Pulmonary: Effort: No respiratory distress. Breath sounds: Normal breath sounds. Abdominal: General: There is no distension. Palpations: Abdomen is soft. Tenderness: There is no abdominal tenderness. Musculoskeletal: General: Tenderness (left 4th toe with bruising, no swelling, full ROM) prese nt. Skin: General: Skin is warm. Findings: Bruising present. Neurological: Mental Status: He is alert. Lab Review: CBC w diff Lab Results Component Value Date/Time WBC 2.4 (L) 02/21/2020 02:04 AM RBC 2.26 (L) 02/21/2020 02:04 AM HGB 7.4 (L) 02/21/2020 02:04 AM HCT 20.8 (L) 02/21/2020 02:04 AM MCV 92.2 02/21/2020 02:04 AM MCH 32.6 02/21/2020 02:04 AM MCHC 35.4 02/21/2020 02:04 AM RDW 15.6 (H) 02/21/2020 02:04 AM PLTCT 13 (LL) 02/21/2020 02:04 AM MPV 7.0 02/21/2020 02:04 AM Lab Results Component Value Date/Time ANC 0.70 (L) 02/21/2020 02:04 AM Comprehensive Metabolic Profile Lab Results Component Value Date/Time NA 136 (L) 02/21/2020 02:04 AM K 3.5 02/21/2020 02:04 AM CL 102 02/21/2020 02:04 AM CO2 26 02/21/2020 02:04 AM GAP 8 02/21/2020 02:04 AM BUN 24 02/21/2020 02:04 AM CR 1.16 02/21/2020 02:04 AM GLU 107 (H) 02/21/2020 02:04 AM Lab Results Component Value Date/Time CA 8.3 (L) 02/21/2020 02:04 AM PO4 3.9 02/21/2020 02:04 AM ALBUMIN 3.0 (L) 02/21/2020 02:04 AM TOTPROT 6.0 02/21/2020 02:04 AM ALKPHOS 194 (H) 02/21/2020 02:04 AM AST 21 02/21/2020 02:04 AM ALT 23 02/21/2020 02:04 AM TOTBILI 2.5 (H) 02/21/2020 02:04 AM GFR >60 02/21/2020 02:04 AM GFRAA >60 02/21/2020 02:04 AM Radiology Review: Pertinent radiology reviewed and discussed in assessment and plan. Kimberley Stark MD Pager [phone] * Orly Acuna RN - 02/21/2020 5:56 AM CDT Shift: [id number] NEWS Score: 1936: 3 (RR 22, O2 95% on RA) 2245: 2 (RR 22) 0206: 0 Pain: Denies pain. Nutrition: Immuno diet. GI/: LBM 4. Voids adequate amounts of clear, shannon urine. Denies nausea. Activity: Assist x 1 with walker due to weakness. Last Shower: 02/19. New Events or Follow-up: Potassium 3.5, to be replaced with breakfast per protocol. Natural tear eye drops given for eye dryness. * Mu Ramirez DO - 02/20/2020 10:02 AM CDT Pulmonary Progress Note Admission Date: 02/06/2020 LOS: 14 days Impression: # fever in immunocompromised host # acute hypoxemic respiratory failure, resolved # abnormal imaging -- CT CHEST with bilateral, patchy GGOs - may represent atypical pulmonary rosa ma # AML, receiving dacogen induction # hypervolemia -- elevated BNP on admission, bilateral pleural effusions, LVEF normal # CAD s/p 3-v CABG # prior tobacco use disorder # pancytopenia Plan: - Await BAL studies. Gram stain with few neutrophils, many RBCs, no organisms. C ulture negative after 2 days. BAL RVP and COVID both negative. No evidence of DA H on bronchoscopy. No purulent secretions. - 1+ lower extremity edema noted. Continue gentle diuresis to achieve net negati ve fluid status. - antimicrobials per primary team Seen with Dr. Hdz. Mu Ramirez DO PGY4 Pulmonary/Critical Care Fellow Pager [phone] [facility] S: Feeling well today. Denies dyspnea at rest. Admits occasional cough, non-prod uctive. ROS: Admits occasional cough. Denies dyspnea at rest. Scheduled Meds:acyclovir (ZOVIRAX) tablet 800 mg, 800 mg, Oral, BID allopurinoL (ZYLOPRIM) tablet 300 mg, 300 mg, Oral, QDAY [START ON 02/23/2020] levoFLOXacin (LEVAQUIN) tablet 750 mg, 750 mg, Oral, Q24H* meropenem (MERREM) 1 g in sodium chloride 0.9% (NS) 100 mL IVPB (MB+)(EXTENDED I NFUSION), 1 g, Intravenous, Q8H* metoprolol tartrate (LOPRESSOR) tablet 12.5 mg, 12.5 mg, Oral, BID posaconazole EC (NOXAFIL) tablet 300 mg, 300 mg, Oral, QDAY w/breakfast sodium chloride PF 0.9% flush 5-10 mL, 5-10 mL, Flush, FLUSH TID tamsulosin (FLOMAX) capsule 0.4 mg, 0.4 mg, Oral, QDAY after breakfast Continuous Infusions: PRN and Respiratory Meds:acetaminophen Q6H PRN, albuterol 0.5% Q4H PRN, alteplas e PRN (Brand Recorder from Rx), alum/mag hydroxide/simeth Q6H PRN, benzonatate TID PRN, guaiFENesin Q6H PRN, magnesium sulfate 4 g/50 mL PRN, melatonin QHS PRN, oxymet azoline BID PRN, polyethylene glycol 3350 QDAY PRN, potassium chloride in water PRN (Brand Recorder from Rx) OR potassium chloride SR PRN (Brand Recorder from Rx), prochl orperazine Q6H PRN OR prochlorperazine Q6H PRN, senna/docusate QDAY PRN, sim ethicone Q6H PRN, sodium chloride 0.9 % TKO infusion PRN, sodium chloride 0.9% i rrigation bottle PRN, sodium phosphate IVPB PRN (Brand Recorder from Rx), temazepam QH S PRN, traMADoL Q6H PRN Vital Signs: Last Filed in 24 hours Vital Signs: 24 hour Range BP: 126/54 (02/19 900) Temp: 36.8 C (98.2 F) (02/19 900) Pulse: 77 (02/19 0900) Respirations: 18 PER MINUTE (02/19 900) SpO2: 96 % (02/19 900) BP: (126-163)/(54-81) Temp: [36.5 C (97.7 F)-37.7 C (99.8 F)] Pulse: [77-92] Respirations: [18 PER MINUTE-22 PER MINUTE] SpO2: [93 %-96 %] Physical Exam: Gen: NAD, sitting in chair CV: RRR, no mrg Lungs: Clear to auscultation bilaterally, no wheezes, normal WOB Abd: Nondistended Ext: 1+ LE edema bilaterally Skin: no rash Neuro: grossly intact Psych: normal mood/affect Lab/Radiology/Other Diagnostic Tests: 24-hour labs: Results for orders placed or performed during the hospital encounter of 02/06/20 (from the past 24 hour(s)) COMPREHENSIVE METABOLIC PANEL CELLULAR THERAPEUTICS Collection Time: 02/20/20 2:05 AM Result Value Ref Range Sodium 138 137 - 147 MMOL/L Potassium 3.9 3.5 - 5.1 MMOL/L Chloride 106 98 - 110 MMOL/L Glucose 106 (H) 70 - 100 MG/DL Blood Urea Nitrogen 23 7 - 25 MG/DL Creatinine 1.15 0.4 - 1.24 MG/DL Calcium 8.2 (L) 8.5 - 10.6 MG/DL Total Protein 5.9 (L) 6.0 - 8.0 G/DL Total Bilirubin 2.2 (H) 0.3 - 1.2 MG/DL Albumin 3.0 (L) 3.5 - 5.0 G/DL Alk Phosphatase 195 (H) 25 - 110 U/L AST (SGOT) 22 7 - 40 U/L CO2 24 21 - 30 MMOL/L ALT (SGPT) 24 7 - 56 U/L Anion Gap 8 3 - 12 eGFR Non >60 >60 mL/min eGFR >60 >60 mL/min PHOSPHORUS CELLULAR THERAPEUTICS Collection Time: 02/20/20 2:05 AM Result Value Ref Range Phosphorus 3.0 2.0 - 4.5 MG/DL CBC AND DIFF CELLULAR THERAPEUTICS Collection Time: 02/20/20 2:05 AM Result Value Ref Range White Blood Cells 2.4 (L) 4.5 - 11.0 K/UL RBC 2.07 (L) 4.4 - 5.5 M/UL Hemoglobin 6.8 (L) 13.5 - 16.5 GM/DL Hematocrit 19.5 (L) 40 - 50 % MCV 94.2 80 - 100 FL MCH 32.9 26 - 34 PG MCHC 34.9 32.0 - 36.0 G/DL RDW 15.5 (H) 11 - 15 % Platelet Count 21 (LL) 150 - 400 K/UL MPV 7.5 7 - 11 FL Segmented Neutrophils 23 (L) 41 - 77 % Bands 2 0 - 10 % Lymphocytes 36 24 - 44 % Monocytes 30 (H) 4 - 12 % Eosinophil 1 0 - 5 % Metamyelocyte 1 % Blast 7 % ANISO PRESENT Platelet Estimate MKD DEC Absolute Neutrophil Count Manual 0.60 (L) 1.8 - 7.0 K/UL Pertinent radiology reviewed. Associated attestation - Javier Hdz MD - 02/20/2020 11:33 AM CDT ATTESTATION I personally performed the guardado portions of the E/M visit, discussed case with re sident and concur with resident documentation of history, physical exam, assessm ent, and treatment plan unless otherwise noted. Staff name: Javier Hdz MD Date: 02/20/2020 * Unruly Ricks MD - 02/20/2020 9:08 AM CDT Acute Leukemia Service Progress Note Today's Date: 02/20/2020 Name: Jhony Chi Admission Date: 02/06/2020 LOS: LOS: 14 days Assessment/Plan: Active Problems: Paroxysmal A-fib (HCC) CAD (coronary artery disease) Inflammatory arthritis Hyperlipidemia AML (acute myeloblastic leukemia) (HCC) Pancytopenia due to antineoplastic chemotherapy (HCC) Pneumonia of both lungs due to infectious organism Primary diagnosis: Acute monocytic leukemia Cytogenetics/FISH: AML/ETO, CBFB, MLL negative, p53 slightly above threshold so positive 47, XY,+11 [2]/48,sl,+8, add (17)(p11.2)[cp2]/49, sdl1, +14[cp2]/47,sl, -11,+i(1 1)(p10), add(10)(p11.2)[cp3]/46, XY[11] NGS: pending Referring physician: Dr. Cameron Abrams, [place] Chemotherapy plan: Dacogen 10 day, ? venetoclax based on ability to get however Rx coverage [facility], so unlikely to get cycle 1 Consider LP/IT chemo at some point due to monocytic features, once WBC<1 Continues with circulating blasts, so will delay IT chemo for now. Most likely will be able to get at end of cycle 1 when bone marrow bx is due Day 12 of 10-day dacogen induction Pending our cytogenetics and 141 gene panel NGS testing. Heme: Pancytopenia due to chemo Bleeding behind left TM: Symptoms started 02/04. 02/18 take transfusion threshold b ack to 10K Transfusion 02/20/20: PRBC transfusions Monitor CBC for transfusion needs, goal Hgb>7 and platelets >10K DVT Prophylaxis: SCDs, Chemical prophylaxis contraindicated due to bleeding, thr ombocytopenia FEN/Renal: Acute kidney injury: renally adjust medications especially in window of TLS. Catrina nae creatinine 1, current is 1.15, decr from yesterday Hyperuricemia: s/p rasburicase 3mg IV x 1 based on outside lab Allopurinol 300mg po daily until WBC<1 Monitor I/O/daily weights and use lasix prn to maintain euvolemia - gave Lasix , 02/19 High goal electrolyte replacement Due to cardiac history - K replacements 020 Immunocompromised diet ID: Febrile 38.8 on 02/08, afebrile since Cultures drawn, empiric cefepime initiated. Covid 19 Negative, low pre-test probability 02/14 CXR with progression of bilateral lower lung pneumonia. Chest CT 02/14 with Multifocal patchy groundglass opacities and interstitial prominence throughout both lungs, greater on the right, which are nonspecific though sugges tive of multifocal atypical pneumonia and/or pulmonary edema - changed prophy fluconazole to posaconazole, cefepime to meropenem. - checked fungitell, galact - negative. RVP negative Consulted pulm re: Bronchoscopy. COVID testing neg x 2 S/p BAL on 02/17 - results negative so far - RVP, CMV Plan for empiric IV abx to complete 02/21, then transition to oral prophy Drug Dates Cefepime 02/08-02/14 Posa 02/14-current Meropenem 02/14 - current Continue prophylactic anti-infectives: acyclovir CV: Type 2 NSTEMI: echo Ef 60%, no significant abnormalities Chest pain: cardiology consulted, recs from 02.08: No further recommendations, no t a candidate for cardiac angiogram. 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 Albuterol nebs prn. Chest CT 02/14 with multi-focal pneumonia - see ID above GI: Nausea: improving with anti-emetics Hx of bowel obstruction s/p colostomy and reanastomosis. Intermittent constipat ion, improving Monitor for GI distress and prn antiemetics available. Monitor liver function Elevated Tbili - 2.2 - most likely due to chemo - With continued increased, will check ultrasound Rheum: inflammatory arthritis: On Humira 40mg sq every 2 weeks, next due 02/09/2020: hold with admission/AML : urinary urgency, incomplete emptying Started Flomax, patient previously on through a urologist. Given this anti-funga l will be fluconazole (especially since not currently neutropenic) Neuro: Had confusion during the night 02/12-. Got trazadone for the first time . Will d/c Psych: Insomnia: improved with 10mg melatonin, schedule qhs Monitor and offer support as needed. Consider Onc/Psych Consult Code status: DNAR-Full Intervention Unruly Ricks MD Subjective: Jhony Chi is a 75 y.o. male. Pt says he is more SOB Review of Systems: Constitutional: + fatigue NO fevers Eyes: no vision changes Ears, nose, mouth, throat, and face: no nosebleeds, gums bleeding L ear fullnes s, pain improved Respiratory: + cough + sob worsening Cardiovascular: negative for chest pain, palpitations Gastrointestinal: negative for abd pain, nausea, vomiting, diarrhea, constipatio n MSK: no back or bone pain Genitourinary: + urinary hesitancy + urgency Integument/breast: negative for rash and skin lesions Hematologic/lymphatic: negative for bleeding Neurological: no confusion. Denies headaches Objective: Medications: Scheduled Meds:acyclovir (ZOVIRAX) tablet 800 mg, 800 mg, Oral, BID allopurinoL (ZYLOPRIM) tablet 300 mg, 300 mg, Oral, QDAY [START ON 02/23/2020] levoFLOXacin (LEVAQUIN) tablet 750 mg, 750 mg, Oral, Q24H* meropenem (MERREM) 1 g in sodium chloride 0.9% (NS) 100 mL IVPB (MB+)(EXTENDED I NFUSION), 1 g, Intravenous, Q8H* metoprolol tartrate (LOPRESSOR) tablet 12.5 mg, 12.5 mg, Oral, BID posaconazole EC (NOXAFIL) tablet 300 mg, 300 mg, Oral, QDAY w/breakfast sodium chloride PF 0.9% flush 5-10 mL, 5-10 mL, Flush, FLUSH TID tamsulosin (FLOMAX) capsule 0.4 mg, 0.4 mg, Oral, QDAY after breakfast Continuous Infusions: PRN and Respiratory Meds:acetaminophen Q6H PRN, albuterol 0.5% Q4H PRN, alteplas e PRN (Brand Recorder from Rx), alum/mag hydroxide/simeth Q6H PRN, benzonatate TID PRN, guaiFENesin Q6H PRN, magnesium sulfate 4 g/50 mL PRN, melatonin QHS PRN, oxymet azoline BID PRN, polyethylene glycol 3350 QDAY PRN, potassium chloride in water PRN (Brand Recorder from Rx) OR potassium chloride SR PRN (Brand Recorder from Rx), prochl orperazine Q6H PRN OR prochlorperazine Q6H PRN, senna/docusate QDAY PRN, sim ethicone Q6H PRN, sodium chloride 0.9 % TKO infusion PRN, sodium chloride 0.9% i rrigation bottle PRN, sodium phosphate IVPB PRN (Brand Recorder from Rx), temazepam QH S PRN, traMADoL Q6H PRN Vital Signs: Last Filed Vital Signs: 24 Hour Range BP: 163/65 (02/19 653) Temp: 36.5 C (97.7 F) (02/19 653) Pulse: 91 (02/19 653) Respirations: 18 PER MINUTE (02/19 653) SpO2: 95 % (02/19 653) BP: (138-163)/(61-81) Temp: [36.5 C (97.7 F)-37.7 C (99.8 F)] Pulse: [80-92] Respirations: [18 PER MINUTE-22 PER MINUTE] SpO2: [93 %-95 %] Intensity Pain Scale (Self Report): 5 Verbal Pain Description: No Pain Vitals: 02/18/20 0209 02/19/20 0154 02/20/20 0206 Weight: 115 kg (253 lb 8.5 oz) 118.4 kg (261 lb 0.4 oz) 118.4 kg (261 lb 0.4 oz) Intake/Output Summary: (Last 24 hours) Intake/Output Summary (Last 24 hours) at 02/20/2020 0908 Last data filed at 02/20/2020 0800 Gross per 24 hour Intake 619.83 ml Output 1825 ml Net -1205.17 ml Performance Status (Karnofsky): 60% Requires some assistance, but able to care for most of needs ECOG PS: 2 VS reviewed General: Alert, cooperative, no distress, appears stated age Head: Normocephalic, without obvious abnormality, atraumatic Eyes: Anicteric sclera OP: No mucositis or erythema Lungs: CTAB, no rales. Room air Heart: Regular rhythm Abdomen: Soft, non-tender. Bowel sounds normal. Mild distension Extremities: 1+ edema - increased from yesterday Skin: No rashes Neurologic: Grossly intact Lab Review: CBC w diff Lab Results Component Value Date/Time WBC 2.4 (L) 02/20/2020 02:05 AM RBC 2.07 (L) 02/20/2020 02:05 AM HGB 6.8 (L) 02/20/2020 02:05 AM HCT 19.5 (L) 02/20/2020 02:05 AM MCV 94.2 02/20/2020 02:05 AM MCH 32.9 02/20/2020 02:05 AM MCHC 34.9 02/20/2020 02:05 AM RDW 15.5 (H) 02/20/2020 02:05 AM PLTCT 21 (LL) 02/20/2020 02:05 AM MPV 7.5 02/20/2020 02:05 AM Lab Results Component Value Date/Time ANC 0.60 (L) 02/20/2020 02:05 AM Comprehensive Metabolic Profile Lab Results Component Value Date/Time NA 138 02/20/2020 02:05 AM K 3.9 02/20/2020 02:05 AM CL 106 02/20/2020 02:05 AM CO2 24 02/20/2020 02:05 AM GAP 8 02/20/2020 02:05 AM BUN 23 02/20/2020 02:05 AM CR 1.15 02/20/2020 02:05 AM GLU 106 (H) 02/20/2020 02:05 AM Lab Results Component Value Date/Time CA 8.2 (L) 02/20/2020 02:05 AM PO4 3.0 02/20/2020 02:05 AM ALBUMIN 3.0 (L) 02/20/2020 02:05 AM TOTPROT 5.9 (L) 02/20/2020 02:05 AM ALKPHOS 195 (H) 02/20/2020 02:05 AM AST 22 02/20/2020 02:05 AM ALT 24 02/20/2020 02:05 AM TOTBILI 2.2 (H) 02/20/2020 02:05 AM GFR >60 02/20/2020 02:05 AM GFRAA >60 02/20/2020 02:05 AM Radiology Review: Pertinent radiology reviewed and discussed in assessment and plan. Unruly Ricks MD * Narcisa Dacosta RN - 02/20/2020 2:46 AM CDT Shift: [id number] NEWS Score: 1-2-3 Pain: Denies pain. Nutrition: Immuno diet. GI/: LBM 02/19. Voids adequate amounts of clear, shannon urine. Denies nausea. Activity: Assist x 1 with walker due to weakness. Family: No family at bedside. Last Shower: 02/17, patient refused (CHG line care completed 02/18) New Events or Follow-up: -Hgb 6.8, replacing one unit PRBCs per protocol -Potassium 3.9, replace per protocol * Mu Ramirez DO - 02/19/2020 10:58 AM CDT Pulmonary Progress Note Admission Date: 02/06/2020 LOS: 13 days Impression: # fever in immunocompromised host # acute hypoxemic respiratory failure # abnormal imaging -- CT CHEST with bilateral, patchy GGOs - may represent atypical pulmonary rosa ma # AML, receiving dacogen induction # hypervolemia -- elevated BNP on admission, bilateral pleural effusions, LVEF normal # CAD s/p 3-v CABG # prior tobacco use disorder # pancytopenia Plan: - Await BAL studies. Gram stain with few neutrophils, many RBCs, no organisms. C ulture NGTD. BAL RVP and COVID both negative. No evidence of DAH on bronchoscopy . No purulent secretions. - antimicrobials per primary team - Continue gentle diuresis to achieve net negative fluid status Seen with Dr. Hdz. Mu Ramirez DO PGY4 Pulmonary/Critical Care Fellow Pager [phone] Available on [employer] S: Feeling better today. Denies dyspnea at rest. Admits occasional cough. Denies sore throat. ROS: Admits occasional cough. Denies dyspnea at rest. Scheduled Meds:acyclovir (ZOVIRAX) tablet 800 mg, 800 mg, Oral, BID allopurinoL (ZYLOPRIM) tablet 300 mg, 300 mg, Oral, QDAY [START ON 02/23/2020] levoFLOXacin (LEVAQUIN) tablet 750 mg, 750 mg, Oral, Q24H* meropenem (MERREM) 1 g in sodium chloride 0.9% (NS) 100 mL IVPB (MB+)(EXTENDED I NFUSION), 1 g, Intravenous, Q8H* metoprolol tartrate (LOPRESSOR) tablet 12.5 mg, 12.5 mg, Oral, BID posaconazole EC (NOXAFIL) tablet 300 mg, 300 mg, Oral, QDAY w/breakfast sodium chloride PF 0.9% flush 5-10 mL, 5-10 mL, Flush, FLUSH TID tamsulosin (FLOMAX) capsule 0.4 mg, 0.4 mg, Oral, QDAY after breakfast Continuous Infusions: sodium chloride 0.9 % infusion 1,000 mL (02/18/20 0945) PRN and Respiratory Meds:acetaminophen Q6H PRN, albuterol 0.5% Q4H PRN, alteplas e PRN (Brand Recorder from Rx), alum/mag hydroxide/simeth Q6H PRN, benzonatate TID PRN, guaiFENesin Q6H PRN, magnesium sulfate 4 g/50 mL PRN, melatonin QHS PRN, oxymet azoline BID PRN, polyethylene glycol 3350 QDAY PRN, potassium chloride in water PRN (Brand Recorder from Rx) OR potassium chloride SR PRN (Brand Recorder from Rx), prochl orperazine Q6H PRN OR prochlorperazine Q6H PRN, senna/docusate QDAY PRN, sim ethicone Q6H PRN, sodium chloride 0.9 % TKO infusion PRN, sodium chloride 0.9% i rrigation bottle PRN, sodium phosphate IVPB PRN (Brand Recorder from Rx), traMADoL Q6H PRN Vital Signs: Last Filed in 24 hours Vital Signs: 24 hour Range BP: 133/50 (02/19 0800) Temp: 37.3 C (99.2 F) (02/19 800) Pulse: 97 (02/18 0800) Respirations: 18 PER MINUTE (02/19 800) SpO2: 96 % (02/19 800) SpO2 Pulse: 94 (02/17 1200) BP: (114-167)/(50-70) Temp: [36 C (96.8 F)-37.3 C (99.2 F)] Pulse: [82-97] Respirations: [15 PER MINUTE-26 PER MINUTE] SpO2: [93 %-100 %] Physical Exam: Gen: NAD, sitting in chair CV: RRR, no mrg Lungs: Clear to auscultation bilaterally, no wheezes, normal WOB Abd: Nondistended Ext: trace pitting LE edema Skin: no rash Neuro: grossly intact Psych: normal mood/affect Lab/Radiology/Other Diagnostic Tests: 24-hour labs: Results for orders placed or performed during the hospital encounter of 02/06/20 (from the past 24 hour(s)) COMPREHENSIVE METABOLIC PANEL CELLULAR THERAPEUTICS Collection Time: 02/19/20 2:00 AM Result Value Ref Range Sodium 138 137 - 147 MMOL/L Potassium 3.8 3.5 - 5.1 MMOL/L Chloride 106 98 - 110 MMOL/L Glucose 110 (H) 70 - 100 MG/DL Blood Urea Nitrogen 23 7 - 25 MG/DL Creatinine 1.31 (H) 0.4 - 1.24 MG/DL Calcium 8.2 (L) 8.5 - 10.6 MG/DL Total Protein 6.0 6.0 - 8.0 G/DL Total Bilirubin 1.4 (H) 0.3 - 1.2 MG/DL Albumin 2.9 (L) 3.5 - 5.0 G/DL Alk Phosphatase 214 (H) 25 - 110 U/L AST (SGOT) 27 7 - 40 U/L CO2 24 21 - 30 MMOL/L ALT (SGPT) 30 7 - 56 U/L Anion Gap 8 3 - 12 eGFR Non 53 (L) >60 mL/min eGFR >60 >60 mL/min PHOSPHORUS CELLULAR THERAPEUTICS Collection Time: 02/19/20 2:00 AM Result Value Ref Range Phosphorus 3.3 2.0 - 4.5 MG/DL CBC AND DIFF CELLULAR THERAPEUTICS Collection Time: 02/19/20 2:00 AM Result Value Ref Range White Blood Cells 2.4 (L) 4.5 - 11.0 K/UL RBC 2.23 (L) 4.4 - 5.5 M/UL Hemoglobin 7.3 (L) 13.5 - 16.5 GM/DL Hematocrit 21.0 (L) 40 - 50 % MCV 94.5 80 - 100 FL MCH 32.7 26 - 34 PG MCHC 34.6 32.0 - 36.0 G/DL RDW 15.8 (H) 11 - 15 % Platelet Count 19 (LL) 150 - 400 K/UL MPV 6.9 (L) 7 - 11 FL Segmented Neutrophils 23 (L) 41 - 77 % Lymphocytes 29 24 - 44 % Monocytes 35 (H) 4 - 12 % Eosinophil 1 0 - 5 % Basophil 1 0 - 2 % Blast 11 % ANISO PRESENT Platelet Estimate MKD DEC Absolute Neutrophil Count Manual 0.55 (L) 1.8 - 7.0 K/UL URIC ACID Collection Time: 02/19/20 2:00 AM Result Value Ref Range Uric Acid 3.2 (L) 4.0 - 8.0 MG/DL PREPARE APHERESIS PLATELETS Collection Time: 02/19/20 3:05 AM Result Value Ref Range Units Ordered 1 Unit Number [id number] Blood Component Type APHERESIS PLT,LEUKO REDUCED,IRRADIATED,2ND CONT. Unit Division 0 Status OF Unit ISSUED Transfusion Status OK TO TRANSFUSE Pertinent radiology reviewed. Associated attestation - Javier Hdz MD - 02/19/2020 12:05 PM CDT ATTESTATION I personally performed the guardado portions of the E/M visit, discussed case with re sident and concur with resident documentation of history, physical exam, assessm ent, and treatment plan unless otherwise noted. Staff name: Javier Hdz MD Date: 02/19/2020 * Unruly Ricks MD - 02/19/2020 10:01 AM CDT Acute Leukemia Service Progress Note Today's Date: 02/19/2020 Name: Jhony Chi Admission Date: 02/06/2020 LOS: LOS: 13 days Assessment/Plan: Active Problems: Paroxysmal A-fib (HCC) CAD (coronary artery disease) Inflammatory arthritis Hyperlipidemia AML (acute myeloblastic leukemia) (HCC) Pancytopenia due to antineoplastic chemotherapy (HCC) Pneumonia of both lungs due to infectious organism Primary diagnosis: Acute monocytic leukemia Cytogenetics/FISH: AML/ETO, CBFB, MLL negative, p53 slightly above threshold so positive 47, XY,+11 [2]/48,sl,+8, add (17)(p11.2)[cp2]/49, sdl1, +14[cp2]/47,sl, -11,+i(1 1)(p10), add(10)(p11.2)[cp3]/46, XY[11] NGS: pending Referring physician: Dr. Cameron Abrams, [place] Chemotherapy plan: Dacogen 10 day, ? venetoclax based on ability to get however Rx coverage [facility], so unlikely to get cycle 1 Consider LP/IT chemo at some point due to monocytic features, once WBC<1 Continues with circulating blasts, so will delay IT chemo for now. Most likely will be able to get at end of cycle 1 when bone marrow bx is due Day 11 of 10-day dacogen induction BM Bx performed at outside hospital prior to arrival, slides sent to path Pending our cytogenetics and 141 gene panel NGS testing. Heme: Pancytopenia due to chemo Bleeding behind left TM: Symptoms started 02/04. 02/18 take transfusion threshold b ack to 10K Transfusion 02/19/20: platelet transfusions Monitor CBC for transfusion needs, goal Hgb>7 and platelets >10K DVT Prophylaxis: SCDs, Chemical prophylaxis contraindicated due to bleeding, thr ombocytopenia FEN/Renal: Acute kidney injury: renally adjust medications especially in window of TLS. Bas nae creatinine 1, current is 1.33, decr from yesterday Hyperuricemia: s/p rasburicase 3mg IV x 1 based on outside lab Allopurinol 300mg po daily until WBC<1 Monitor I/O/daily weights and use lasix prn to maintain euvolemia - gave Lasix Immunocompromised diet ID: Febrile 38.8 on 02/08, afebrile since Cultures drawn, empiric cefepime initiated. Covid 19 Negative, low pre-test probability 02/14 CXR with progression of bilateral lower lung pneumonia. Chest CT 02/14 with Multifocal patchy groundglass opacities and interstitial prominence throughout both lungs, greater on the right, which are nonspecific though sugges tive of multifocal atypical pneumonia and/or pulmonary edema - changed prophy fluconazole to posaconazole, cefepime to meropenem. Depending on BAL results, may be able to narrow abx as was not neutropenic at time of feve r - checked fungitell, galact - negative. RVP negative Consulted pulm re: Bronchoscopy. COVID testing neg x 2 S/p BAL on 02/17 - results negative so far - RVP, CMV Plan for empiric IV abx to complete 02/21, transition to oral prophy Drug Dates Cefepime 02/08-02/14 Posa 02/14-current Meropenem 02/14 - current Continue prophylactic anti-infectives: acyclovir CV: Type 2 NSTEMI: echo Ef 60%, no significant abnormalities Chest pain: cardiology consulted, recs from 02.08: No further recommendations, no t a candidate for cardiac angiogram. 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 Albuterol nebs prn. Chest CT 02/14 with multi-focal pneumonia - see ID above GI: Nausea: improving with anti-emetics Hx of bowel obstruction s/p colostomy and reanastomosis. Intermittent constipat ion, improving Monitor for GI distress and prn antiemetics available. Monitor liver function Elevated Tbili - 1.4 - most likely due to chemo - monitor Rheum: inflammatory arthritis: On Humira 40mg sq every 2 weeks, next due 02/09/2020: hold with admission/AML : urinary urgency, incomplete emptying Started Flomax, patient previously on through a urologist. Given this anti-funga l will be fluconazole (especially since not currently neutropenic) Neuro: Had confusion during the night 02/12-. Got trazadone for the first time . Will d/c Psych: Insomnia: improved with 10mg melatonin, schedule qhs Monitor and offer support as needed. Consider Onc/Psych Consult Code status: DNAR-Full Intervention Unruly Ricks MD Subjective: Jhony Chi is a 75 y.o. male. Pt with no complaints. Tolerated procedure, breathing is easuer Review of Systems: Constitutional: + fatigue NO fevers Eyes: no vision changes Ears, nose, mouth, throat, and face: no nosebleeds, gums bleeding L ear fullnes s, pain improved Respiratory: + cough + sob improving Cardiovascular: negative for chest pain, palpitations Gastrointestinal: negative for abd pain, nausea, vomiting, diarrhea, constipatio n MSK: no back or bone pain Genitourinary: + urinary hesitancy + urgency Integument/breast: negative for rash and skin lesions Hematologic/lymphatic: negative for bleeding Neurological: no confusion Objective: Medications: Scheduled Meds:acyclovir (ZOVIRAX) tablet 800 mg, 800 mg, Oral, BID allopurinoL (ZYLOPRIM) tablet 300 mg, 300 mg, Oral, QDAY meropenem (MERREM) 1 g in sodium chloride 0.9% (NS) 100 mL IVPB (MB+)(EXTENDED I NFUSION), 1 g, Intravenous, Q8H* metoprolol tartrate (LOPRESSOR) tablet 12.5 mg, 12.5 mg, Oral, BID posaconazole EC (NOXAFIL) tablet 300 mg, 300 mg, Oral, QDAY w/breakfast sodium chloride PF 0.9% flush 5-10 mL, 5-10 mL, Flush, FLUSH TID tamsulosin (FLOMAX) capsule 0.4 mg, 0.4 mg, Oral, QDAY after breakfast Continuous Infusions: sodium chloride 0.9 % infusion 1,000 mL (02/18/20 0945) PRN and Respiratory Meds:acetaminophen Q6H PRN, albuterol sulfate Q4H PRN, altep lase PRN (Brand Recorder from Rx), alum/mag hydroxide/simeth Q6H PRN, benzonatate TID P RN, guaiFENesin Q6H PRN, magnesium sulfate 4 g/50 mL PRN, melatonin QHS PRN, oxy metazoline BID PRN, polyethylene glycol 3350 QDAY PRN, potassium chloride in aliya er PRN (Brand Recorder from Rx) OR potassium chloride SR PRN (Brand Recorder from Rx), pro chlorperazine Q6H PRN OR prochlorperazine Q6H PRN, senna/docusate QDAY PRN, simethicone Q6H PRN, sodium chloride 0.9 % TKO infusion PRN, sodium chloride 0.9 % irrigation bottle PRN, sodium phosphate IVPB PRN (Brand Recorder from Rx), traMADoL Q6H PRN Vital Signs: Last Filed Vital Signs: 24 Hour Range BP: 133/50 (02/19 800) Temp: 37.3 C (99.2 F) (02/19 800) Pulse: 97 (02/19 800) Respirations: 18 PER MINUTE (02/19 800) SpO2: 96 % (02/19 800) SpO2 Pulse: 94 (02/17 1200) BP: (114-167)/(50-70) Temp: [36 C (96.8 F)-37.3 C (99.2 F)] Pulse: [82-97] Respirations: [15 PER MINUTE-26 PER MINUTE] SpO2: [93 %-100 %] Intensity Pain Scale (Self Report): 5 Verbal Pain Description: No Pain Vitals: 02/17/20 0216 02/18/20 0209 02/19/20 0154 Weight: 115.5 kg (254 lb 10.1 oz) 115 kg (253 lb 8.5 oz) 118.4 kg (261 lb 0.4 oz ) Intake/Output Summary: (Last 24 hours) Intake/Output Summary (Last 24 hours) at 02/19/2020 1001 Last data filed at 02/19/2020 0800 Gross per 24 hour Intake 1503.5 ml Output 925 ml Net 578.5 ml Performance Status (Karnofsky): 60% Requires some assistance, but able to care for most of needs ECOG PS: 2 VS reviewed General: Alert, cooperative, no distress, appears stated age Head: Normocephalic, without obvious abnormality, atraumatic Eyes: Anicteric sclera OP: No mucositis Lungs: CTAB, no rales. Room air Heart: Regular rhythm Abdomen: Soft, non-tender. Bowel sounds normal. Distended Extremities: TRACE edema Skin: No rashes Neurologic: Grossly intact Lab Review: CBC w diff Lab Results Component Value Date/Time WBC 2.4 (L) 02/19/2020 02:00 AM RBC 2.23 (L) 02/19/2020 02:00 AM HGB 7.3 (L) 02/19/2020 02:00 AM HCT 21.0 (L) 02/19/2020 02:00 AM MCV 94.5 02/19/2020 02:00 AM MCH 32.7 02/19/2020 02:00 AM MCHC 34.6 02/19/2020 02:00 AM RDW 15.8 (H) 02/19/2020 02:00 AM PLTCT 19 (LL) 02/19/2020 02:00 AM MPV 6.9 (L) 02/19/2020 02:00 AM Lab Results Component Value Date/Time ANC 0.55 (L) 02/19/2020 02:00 AM Comprehensive Metabolic Profile Lab Results Component Value Date/Time NA 138 02/19/2020 02:00 AM K 3.8 02/19/2020 02:00 AM CL 106 02/19/2020 02:00 AM CO2 24 02/19/2020 02:00 AM GAP 8 02/19/2020 02:00 AM BUN 23 02/19/2020 02:00 AM CR 1.31 (H) 02/19/2020 02:00 AM GLU 110 (H) 02/19/2020 02:00 AM Lab Results Component Value Date/Time CA 8.2 (L) 02/19/2020 02:00 AM PO4 3.3 02/19/2020 02:00 AM ALBUMIN 2.9 (L) 02/19/2020 02:00 AM TOTPROT 6.0 02/19/2020 02:00 AM ALKPHOS 214 (H) 02/19/2020 02:00 AM AST 27 02/19/2020 02:00 AM ALT 30 02/19/2020 02:00 AM TOTBILI 1.4 (H) 02/19/2020 02:00 AM GFR 53 (L) 02/19/2020 02:00 AM GFRAA >60 02/19/2020 02:00 AM Radiology Review: Pertinent radiology reviewed and discussed in assessment and plan. Unruly Ricks MD * Kayleen Thurston, RN - 02/19/2020 6:29 AM CDT Shift: [id number] NEWS Score: 2 1 3 Pain: Pt denies pain this shift. Tessalon pearls and robitussin given x 1 for co ugh causing discomfort. Nutrition: Immunosuppressive diet, adequate fluid intake. GI/: LBM: 02/17. Voids adequate amounts of yellow, clear urine. Denies n/v/d thi s shift. Activity: Up with assist X 1 and walker. Last Shower: 02/17 New Events or Follow-up: -Plt 19, replace per protocol to keep > 30 -Potassium 3.8, replace per protocol for high goal. -No acute events this shift. * Adis Kaminski RN - 02/18/2020 12:54 PM CDT CHEMO NOTE Verified chemo consent signed and in chart. Verified initiate chemo order in O2 Blood return positive via:Right dbl PICC red lumen BSA and dose double checked (agree with orders as written) with: yes Karena valenciaRN Labs/applicable tests checked: CBC and Basic Metabolic Panel (BMP) Chemo regime: C1D10 decitabine (DACOGEN) 49.2 mg in sodium chloride 0.9% (NS) 10 9.84 mL IVPB : Ordered Dose 20 mg/m2 2.46 m2 (Treatment Plan Recorded) : Admin Dose 49.2 mg : 110 mL/hr : Intravenous : ONCE Rate verified and armband double checkwith second RN: yes Patient education offered and stated understanding. Denies questions at this gonzález e. * Unruly Ricks MD - 02/18/2020 8:20 AM CDT Acute Leukemia Service Progress Note Today's Date: 02/18/2020 Name: Jhony Chi Admission Date: 02/06/2020 LOS: LOS: 12 days Assessment/Plan: Active Problems: Paroxysmal A-fib (HCC) CAD (coronary artery disease) Inflammatory arthritis Hyperlipidemia AML (acute myeloblastic leukemia) (HCC) Pancytopenia due to antineoplastic chemotherapy (HCC) Pneumonia of both lungs due to infectious organism Primary diagnosis: Acute monocytic leukemia Cytogenetics/FISH: AML/ETO, CBFB, MLL negative, p53 slightly above threshold so positive 47, XY,+11 [2]/48,sl,+8, add (17)(p11.2)[cp2]/49, sdl1, +14[cp2]/47,sl, -11,+i(1 1)(p10), add(10)(p11.2)[cp3]/46, XY[11] NGS: pending Referring physician: Dr. Cameron Abrams, [place] Chemotherapy plan: Dacogen 10 day, ? venetoclax based on ability to get however Rx coverage [facility], so unlikely to get cycle 1 Will need LP/IT chemo at some point due to monocytic features, once WBC<1 Day 10 of 10 of 10-day dacogen induction BM Bx performed at outside hospital prior to arrival, slides sent to path Pending our cytogenetics and 141 gene panel NGS testing. Heme: Pancytopenia due to chemo Bleeding behind left TM: Symptoms started 02/04. Transfuse platelets to keep > 30k Transfusion 02/18/20: Platelets transfusions Monitor CBC for transfusion needs, goal Hgb>7 and platelets >30K DVT Prophylaxis: SCDs, Chemical prophylaxis contraindicated due to bleeding, thr ombocytopenia FEN/Renal: Acute kidney injury: renally adjust medications especially in window of TLS. Bas nae creatinine 1, current is 1.36, decr from yesterday Hyperuricemia: s/p rasburicase 3mg IV x 1 based on outside lab Allopurinol 300mg po daily until WBC<1 Add'l Lasix 02/12 due to abdominal distention/coronary disease Monitor I/O/daily weights and use lasix prn to maintain euvolemia - gave Lasix Immunocompromised diet ID: Febrile 38.8 on 02/08, afebrile since Cultures drawn, empiric cefepime initiated. Covid 19 Negative, low pre-test probability 02/14 CXR with progression of bilateral lower lung pneumonia. Chest CT 02/14 with Multifocal patchy groundglass opacities and interstitial prominence throughout both lungs, greater on the right, which are nonspecific though sugges tive of multifocal atypical pneumonia and/or pulmonary edema - changed prophy fluconazole to posaconazole, cefepime to meropenem. Depending on BAL results, may be able to narrow abx as was not neutropenic at time of feve r - checked fungitell, galact - negative. RVP negative Consulted pulm re: Bronchoscopy. COVID testing neg x 2, BAL on 02/17 Drug Dates Cefepime 02/08-02/14 Posa 02/14-current Meropenem 02/14 - current Continue prophylactic anti-infectives: fluconazole, acyclovir CV: Type 2 NSTEMI: echo Ef 60%, no significant abnormalities Chest pain: cardiology consulted, recs from 02.08: No further recommendations, no t a candidate for cardiac angiogram. 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 Albuterol nebs prn. Chest CT 02/14 with multi-focal pneumonia - see ID above GI: Nausea: improving with anti-emetics Hx of bowel obstruction s/p colostomy and reanastomosis. Intermittent constipat ion, improving Monitor for GI distress and prn antiemetics available. Monitor liver function Elevated Tbili - most likely due to chemo - monitor Rheum: inflammatory arthritis: On Humira 40mg sq every 2 weeks, next due 02/09/2020: hold with admission/AML : urinary urgency, incomplete emptying Started Flomax, patient previously on through a urologist. Given this anti-funga l will be fluconazole (especially since not currently neutropenic) Neuro: Had confusion during the night 02/12-. Got trazadone for the first time . Will d/c Psych: Insomnia: improved with 10mg melatonin, schedule qhs Monitor and offer support as needed. Consider Onc/Psych Consult Code status: DNAR-Full Intervention Unruly Ricks MD Subjective: Jhony Chi is a 75 y.o. male. Pt says he urinated a lot yesterday Review of Systems: Constitutional: + fatigue NO fevers Eyes: no vision changes Ears, nose, mouth, throat, and face: no nosebleeds, gums bleeding L ear fullnes s, pain improved Respiratory: + cough + sob about the same Cardiovascular: negative for chest pain, palpitations Gastrointestinal: negative for abd pain, nausea, vomiting, diarrhea, constipatio n MSK: no back or bone pain Genitourinary: + urinary hesitancy + urgency Integument/breast: negative for rash and skin lesions Hematologic/lymphatic: negative for bleeding Neurological: no confusion Objective: Medications: Scheduled Meds:acyclovir (ZOVIRAX) tablet 800 mg, 800 mg, Oral, BID allopurinoL (ZYLOPRIM) tablet 300 mg, 300 mg, Oral, QDAY decitabine (DACOGEN) 49.2 mg in sodium chloride 0.9% (NS) 109.84 mL IVPB, 20 mg/ m2 (Treatment Plan Recorded), Intravenous, ONCE meropenem (MERREM) 1 g in sodium chloride 0.9% (NS) 100 mL IVPB (MB+)(EXTENDED I NFUSION), 1 g, Intravenous, Q8H* metoprolol tartrate (LOPRESSOR) tablet 12.5 mg, 12.5 mg, Oral, BID ondansetron (ZOFRAN) tablet 16 mg, 16 mg, Oral, ONCE posaconazole EC (NOXAFIL) tablet 300 mg, 300 mg, Oral, QDAY w/breakfast sodium chloride PF 0.9% flush 5-10 mL, 5-10 mL, Flush, FLUSH TID tamsulosin (FLOMAX) capsule 0.4 mg, 0.4 mg, Oral, QDAY after breakfast Continuous Infusions: PRN and Respiratory Meds:acetaminophen Q6H PRN, albuterol sulfate Q4H PRN, altep lase PRN (Brand Recorder from Rx), alum/mag hydroxide/simeth Q6H PRN, benzonatate TID P RN, guaiFENesin Q6H PRN, magnesium sulfate 4 g/50 mL PRN, melatonin QHS PRN, oxy metazoline BID PRN, polyethylene glycol 3350 QDAY PRN, potassium chloride in aliya er PRN (Brand Recorder from Rx) OR potassium chloride SR PRN (Brand Recorder from Rx), pro chlorperazine Q6H PRN OR prochlorperazine Q6H PRN, senna/docusate QDAY PRN, simethicone Q6H PRN, sodium chloride 0.9 % TKO infusion PRN, sodium chloride 0.9 % irrigation bottle PRN, sodium phosphate IVPB PRN (Brand Recorder from Rx), traMADoL Q6H PRN Vital Signs: Last Filed Vital Signs: 24 Hour Range BP: 140/66 (02/17 745) Temp: 36.8 C (98.3 F) (02/17 745) Pulse: 87 (02/17 745) Respirations: 20 PER MINUTE (02/17 745) SpO2: 94 % (02/17 745) BP: (135-158)/(55-69) Temp: [36.6 C (97.9 F)-37.3 C (99.2 F)] Pulse: [78-94] Respirations: [18 PER MINUTE-22 PER MINUTE] SpO2: [92 %-96 %] Intensity Pain Scale (Self Report): 5 Verbal Pain Description: No Pain Vitals: 02/16/20 0338 02/17/20 0216 02/18/20 0209 Weight: 117 kg (257 lb 15 oz) 115.5 kg (254 lb 10.1 oz) 115 kg (253 lb 8.5 oz) Intake/Output Summary: (Last 24 hours) Intake/Output Summary (Last 24 hours) at 02/18/2020 0820 Last data filed at 02/18/2020 0808 Gross per 24 hour Intake 2284.17 ml Output 2425 ml Net -140.83 ml Performance Status (Karnofsky): 60% Requires some assistance, but able to care for most of needs ECOG PS: 2 VS reviewed General: Alert, cooperative, no distress, appears stated age Head: Normocephalic, without obvious abnormality, atraumatic Eyes: Conjunctivae/corneas clear. PERRL OP: No mucositis Lungs: CTAB, no rales. On 1L NC Heart: Regular rhythm Abdomen: Soft, non-tender. Bowel sounds normal. Distended Extremities: TRACE edema Skin: No rashes Neurologic: Grossly intact Lab Review: CBC w diff Lab Results Component Value Date/Time WBC 3.5 (L) 02/18/2020 02:10 AM RBC 2.39 (L) 02/18/2020 02:10 AM HGB 7.8 (L) 02/18/2020 02:10 AM HCT 22.5 (L) 02/18/2020 02:10 AM MCV 94.2 02/18/2020 02:10 AM MCH 32.5 02/18/2020 02:10 AM MCHC 34.5 02/18/2020 02:10 AM RDW 15.3 (H) 02/18/2020 02:10 AM PLTCT 18 (LL) 02/18/2020 02:10 AM MPV 7.3 02/18/2020 02:10 AM Lab Results Component Value Date/Time ANC 0.60 (L) 02/18/2020 02:10 AM Comprehensive Metabolic Profile Lab Results Component Value Date/Time NA 138 02/18/2020 02:10 AM K 3.7 02/18/2020 02:10 AM CL 105 02/18/2020 02:10 AM CO2 25 02/18/2020 02:10 AM GAP 8 02/18/2020 02:10 AM BUN 25 02/18/2020 02:10 AM CR 1.36 (H) 02/18/2020 02:10 AM GLU 113 (H) 02/18/2020 02:10 AM Lab Results Component Value Date/Time CA 8.1 (L) 02/18/2020 02:10 AM PO4 3.5 02/18/2020 02:10 AM ALBUMIN 3.1 (L) 02/18/2020 02:10 AM TOTPROT 5.9 (L) 02/18/2020 02:10 AM ALKPHOS 237 (H) 02/18/2020 02:10 AM AST 27 02/18/2020 02:10 AM ALT 31 02/18/2020 02:10 AM TOTBILI 1.5 (H) 02/18/2020 02:10 AM GFR 51 (L) 02/18/2020 02:10 AM GFRAA >60 02/18/2020 02:10 AM Radiology Review: Pertinent radiology reviewed and discussed in assessment and plan. Unruly Ricks MD * Kayleen Thurston, RN - 02/18/2020 12:31 AM CDT Shift: [phone] NEWS Score: 4 3 4 Pain: Pt denies pain this shift. Tessalon pearls given x 1 for cough causing dis comfort. Nutrition: NPO at midnight for procedure. GI/: LBM: 02/16. Voids adequate amounts of yellow, clear urine. Denies n/v/d th is shift. Activity: Up with assist X 1 and walker. Last Shower: 02/16 New Events or Follow-up: -Plt 18, replace per protocol to keep > 30 -Potassium 3.6, replace per protocol for high goal * Adis Kaminski RN - 02/17/2020 5:57 PM CDT Shift: Day NEWS Score: 0900-2 1241-0 1550-0 Pain: No c/o pain this shift, cough present which gives some discomfort, PRN's a vailable and given. Nutrition: Immuno diet. Fair appetite, encouraged. NPO at midnight. GI/: Voiding adequate amount of clear, yellow urine. Last BM 02/16. Nausea present, PRN's given with relief. Activity: Patient up x SBA-1 assistance with walker. Family: N/A Last Shower: 02/16 New Events or Follow-up: -Patient received blood, Mag and potassium today. -NPO at midnight for bronch tomorrow. * Mu Ramirez DO - 02/17/2020 2:30 PM CDT Pulmonary Progress Note Admission Date: 02/06/2020 LOS: 11 days Impression: # fever in immunocompromised host # acute hypoxemic respiratory failure # abnormal imaging -- CT CHEST with bilateral, patchy GGOs # AML, receiving dacogen induction # hypervolemia -- elevated BNP on admission, bilateral pleural effusions, LVEF normal # CAD s/p 3-v CABG # prior tobacco use disorder # anemia # thrombocytopenia Plan: - Initial COVID-19 test negative on 02/09, repeat testing negative as well - Galactomannan and fungitell negative - antimicrobials per primary team - Continue gentle diuresis to achieve net negative fluid status Second COVID-19 testing is negative, plan to proceed with FOB/BAL on Sunday, 02/17. Hemoglobin will need to be >7 g/dL, platelets >10-15,000 to proceed. Seen with Dr. Hdz. Mu Ramirez DO PGY4 Pulmonary/Critical Care Fellow Pager [phone] Available on Volte S: Feeling well. Denies dyspnea at rest. Admits occasional cough. Discussed plan to proceed with FOB/BAL tomorrow. ROS: Admits occasional cough. Denies dyspnea at rest. Scheduled Meds:acyclovir (ZOVIRAX) tablet 800 mg, 800 mg, Oral, BID allopurinoL (ZYLOPRIM) tablet 300 mg, 300 mg, Oral, QDAY [START ON 02/18/2020] decitabine (DACOGEN) 49.2 mg in sodium chloride 0.9% (NS) 10 9.84 mL IVPB, 20 mg/m2 (Treatment Plan Recorded), Intravenous, ONCE decitabine (DACOGEN) 49.2 mg in sodium chloride 0.9% (NS) 109.84 mL IVPB, 20 mg/ m2 (Treatment Plan Recorded), Intravenous, ONCE meropenem (MERREM) 1 g in sodium chloride 0.9% (NS) 100 mL IVPB (MB+)(EXTENDED I NFUSION), 1 g, Intravenous, Q8H* metoprolol tartrate (LOPRESSOR) tablet 12.5 mg, 12.5 mg, Oral, BID [START ON 02/18/2020] ondansetron (ZOFRAN) tablet 16 mg, 16 mg, Oral, ONCE posaconazole EC (NOXAFIL) tablet 300 mg, 300 mg, Oral, QDAY w/breakfast sodium chloride PF 0.9% flush 5-10 mL, 5-10 mL, Flush, FLUSH TID tamsulosin (FLOMAX) capsule 0.4 mg, 0.4 mg, Oral, QDAY after breakfast Continuous Infusions: PRN and Respiratory Meds:acetaminophen Q6H PRN, albuterol sulfate Q4H PRN, altep lase PRN (Brand Recorder from Rx), alum/mag hydroxide/simeth Q6H PRN, benzonatate TID P RN, guaiFENesin Q6H PRN, magnesium sulfate 4 g/50 mL PRN, melatonin QHS PRN, oxy metazoline BID PRN, polyethylene glycol 3350 QDAY PRN, potassium chloride in aliya er PRN (Brand Recorder from Rx) OR potassium chloride SR PRN (Brand Recorder from Rx), pro chlorperazine Q6H PRN OR prochlorperazine Q6H PRN, senna/docusate QDAY PRN, simethicone Q6H PRN, sodium chloride 0.9 % TKO infusion PRN, sodium chloride 0.9 % irrigation bottle PRN, sodium phosphate IVPB PRN (Brand Recorder from Rx), traMADoL Q6H PRN Vital Signs: Last Filed in 24 hours Vital Signs: 24 hour Range BP: 140/56 (02/16 1241) Temp: 36.8 C (98.2 F) (02/16 1241) Pulse: 86 (02/16 1241) Respirations: 18 PER MINUTE (02/16 1241) SpO2: 96 % (02/16 1241) BP: (135-159)/(51-68) Temp: [36.6 C (97.9 F)-37.2 C (98.9 F)] Pulse: [80-96] Respirations: [18 PER MINUTE-21 PER MINUTE] SpO2: [94 %-97 %] Physical Exam: Gen: NAD, sitting in chair CV: RRR, no mrg Lungs: decreased breath sounds at bases, no wheeze, normal WOB Abd: Nondistended Ext: trace pitting LE edema Skin: no rash Neuro: grossly intact Psych: normal mood/affect Lab/Radiology/Other Diagnostic Tests: 24-hour labs: Results for orders placed or performed during the hospital encounter of 02/06/20 (from the past 24 hour(s)) PHOSPHORUS CELLULAR THERAPEUTICS Collection Time: 02/16/20 4:22 PM Result Value Ref Range Phosphorus 3.5 2.0 - 4.5 MG/DL COMPREHENSIVE METABOLIC PANEL CELLULAR THERAPEUTICS Collection Time: 02/17/20 2:22 AM Result Value Ref Range Sodium 139 137 - 147 MMOL/L Potassium 3.6 3.5 - 5.1 MMOL/L Chloride 107 98 - 110 MMOL/L Glucose 114 (H) 70 - 100 MG/DL Blood Urea Nitrogen 27 (H) 7 - 25 MG/DL Creatinine 1.44 (H) 0.4 - 1.24 MG/DL Calcium 7.8 (L) 8.5 - 10.6 MG/DL Total Protein 5.7 (L) 6.0 - 8.0 G/DL Total Bilirubin 1.2 0.3 - 1.2 MG/DL Albumin 3.0 (L) 3.5 - 5.0 G/DL Alk Phosphatase 232 (H) 25 - 110 U/L AST (SGOT) 31 7 - 40 U/L CO2 23 21 - 30 MMOL/L ALT (SGPT) 32 7 - 56 U/L Anion Gap 9 3 - 12 eGFR Non 48 (L) >60 mL/min eGFR 58 (L) >60 mL/min PHOSPHORUS CELLULAR THERAPEUTICS Collection Time: 02/17/20 2:22 AM Result Value Ref Range Phosphorus 3.5 2.0 - 4.5 MG/DL CBC AND DIFF CELLULAR THERAPEUTICS Collection Time: 02/17/20 2:22 AM Result Value Ref Range White Blood Cells 4.1 (L) 4.5 - 11.0 K/UL RBC 2.05 (L) 4.4 - 5.5 M/UL Hemoglobin 6.4 (L) 13.5 - 16.5 GM/DL Hematocrit 19.6 (L) 40 - 50 % MCV 95.5 80 - 100 FL MCH 30.9 26 - 34 PG MCHC 32.4 32.0 - 36.0 G/DL RDW 16.4 (H) 11 - 15 % Platelet Count 31 (L) 150 - 400 K/UL MPV 8.0 7 - 11 FL Segmented Neutrophils 24 (L) 41 - 77 % Bands 2 0 - 10 % Lymphocytes 15 (L) 24 - 44 % Monocytes 47 (H) 4 - 12 % Eosinophil 2 0 - 5 % Myelocyte 4 % Blast 6 % ANISO PRESENT Platelet Estimate MKD DEC Absolute Neutrophil Count Manual 1.06 (L) 1.8 - 7.0 K/UL TYPE & CROSSMATCH Collection Time: 02/17/20 4:27 AM Result Value Ref Range Units Ordered 1 Crossmatch Expires 02/20/2020,4252 Record Check FOUND ABO/RH(D) B POS Antibody Screen NEG Electronic Crossmatch YES Unit Number [id number] Blood Component Type RBC,ADSOL,LEUKO REDUCED,IRRADIATED Unit Division 0 Status OF Unit ISSUED Transfusion Status OK TO TRANSFUSE Crossmatch Result COMPATIBLE,ELECTRONIC OUTSIDE PATHOLOGY CONSULT Collection Time: 02/17/20 7:37 AM Result Value Ref Range PATHOLOGY REPORT [facility] [email or web address] Department of Pathology and Laboratory Medicine [address] [place] [id number] Surgical Pathology Office: [phone] PATHOLOGY CONSULTATION NAME: JHONY CHI SURG PATH #: [id number] MR #: [id number] ALT ID #: LOCATION: 42 DATE OF PROCEDURE: 02/17/2020 AGE: 75 SEX: M DATE RECEIVED: 02/17/2020 : 1945 TIME RECEIVED: 07:37 PHYSICIAN: VARUN RUSSO DATE OF REPORT: 02/17/2020 COPY TO: [facility] UNRULY RICKS MD DATE OF PRINTIN02/17/2020 OUTSIDE INSTITUTION: [facility] [address] [place] [address] phone: [phone] fax: [phone] ######################################################################## Final Diagnosis: Outside case "[id number]" (date collected 02/06/2020). Bone marrow, aspirate, biopsy, and clot: Acute myeloid leukemia with monocytic differentiation (29% blasts and blast equiv alents) involving a hypercellular bone marrow (95%) with [...] decreased number, normal morphology Bone Marrow Aspirate Morph ology: Aspirate Adequacy: Adequate Cellularity: Increased Megakaryocytes: Appear [...] material indicated in this report. +++ +++ bon/02/17/2020 ######################################################################## Material Received: A: Outside Slides x13, [id number], [facility], [facility], [address] [place] [address], [place] [address] History: 75-year-old male with leukemia Gross Description: A. Received are thirteen (13) outside slides and a report labeled "[id number]". If immunohistochemical stains and/or in situ hybridization are cited in this report, the performance characteristics were determined by the Department of Pathology and Laboratory Medicine of the [facility] ([facility]) in compliance with CLIA'88 regulations. Some of [...] of Pathology and Laboratory Medicine of the [facility]. It has not been cleared or approved by the FDA. The FDA has determined that such clearance or approval is not necessary. Pertinent radiology reviewed. Associated attestation - Javier Hdz MD - 02/17/2020 3:06 PM CDT ATTESTATION I personally performed the guardado portions of the E/M visit, discussed case with re sident and concur with resident documentation of history, physical exam, assessm ent, and treatment plan unless otherwise noted. Staff name: Javier Hdz MD Date: 02/17/2020 * Adis Kaminski RN - 02/17/2020 1:55 PM CDT ..CHEMO NOTE Verified chemo consent signed and in chart. YES Verified initiate chemo order in O2. YES Blood return positive via: Right DL PICC, Red Lumen BSA and dose double checked (agree with orders as written) with: Juana Younger, Chemotherapy Certified RN Labs/applicable tests checked: YES. Chemo regime: Cy1D9 dectiabine (DACOGEN) 49.2 mg in sodium chloride 0.9% (NS) 109.84 mL IVPB Rate verified and armband double checkwith second RN: YES Patient education offered and stated understanding. Denies questions at this gonzález e. * Unruly Ricks MD - 02/17/2020 10:55 AM CDT Acute Leukemia Service Progress Note Today's Date: 02/17/2020 Name: Jhony Chi Admission Date: 02/06/2020 LOS: LOS: 11 days Assessment/Plan: Active Problems: Paroxysmal A-fib (HCC) CAD (coronary artery disease) Inflammatory arthritis Hyperlipidemia AML (acute myeloblastic leukemia) (HCC) Pancytopenia due to antineoplastic chemotherapy (HCC) Pneumonia of both lungs due to infectious organism Primary diagnosis: Acute monocytic leukemia Cytogenetics/FISH: AML/ETO, CBFB, MLL negative, p53 slightly above threshold so positive 47, XY,+11 [2]/48,sl,+8, add (17)(p11.2)[cp2]/49, sdl1, +14[cp2]/47,sl, -11,+i(1 1)(p10), add(10)(p11.2)[cp3]/46, XY[11] NGS: pending Referring physician: Dr. Cameron Abrams, [place] Chemotherapy plan: Dacogen 10 day, ? venetoclax based on ability to get however Rx coverage [facility], so unlikely to get cycle 1 Will need LP/IT chemo at some point due to monocytic features, once WBC<1 Day 9 of 10 of 10-day dacogen induction BM Bx performed at outside hospital prior to arrival, slides sent to path Pending our cytogenetics and 141 gene panel NGS testing. Heme: Pancytopenia due to chemo Bleeding behind left TM: Symptoms started 02/04. Transfuse platelets to keep > 30k Transfusion 02/17/20: PRBC transfusions Monitor CBC for transfusion needs, goal Hgb>7 and platelets >30K DVT Prophylaxis: SCDs, Chemical prophylaxis contraindicated due to bleeding, thr ombocytopenia FEN/Renal: Acute kidney injury: renally adjust medications especially in window of TLS. Catrina soni creatinine 1, current is 1.44, decr from yesterday Hyperuricemia: s/p rasburicase 3mg IV x 1 based on outside lab Allopurinol 300mg po daily until WBC<1 Add'l Lasix 02/12 due to abdominal distention/coronary disease Monitor I/O/daily weights and use lasix prn to maintain euvolemia - give Lasix Immunocompromised diet ID: Febrile 38.8 on 02/08, afebrile since Cultures drawn, empiric cefepime initiated. Covid 19 Negative, low pre-test probability 02/14 CXR with progression of bilateral lower lung pneumonia. Chest CT 02/14 with Multifocal patchy groundglass opacities and interstitial prominence throughout both lungs, greater on the right, which are nonspecific though sugges tive of multifocal atypical pneumonia and/or pulmonary edema - changed abx fluconazole to posaconazole, cefepime to meropenem - check fungitell, galact - negative. RVP negative Consulted pulm re: Bronchoscopy. COVID testing neg x 2, BAL on 02/17 Drug Dates Cefepime 02/08-02/14 Posa 02/14-current Meropenem 02/14 - current Continue prophylactic anti-infectives: fluconazole, acyclovir CV: Type 2 NSTEMI: echo Ef 60%, no significant abnormalities Chest pain: cardiology consulted, recs from 02.08: No further recommendations, no t a candidate for cardiac angiogram. 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 Albuterol nebs prn. Chest CT 02/14 with multi-focal pneumonia - see ID above GI: Nausea: improving with anti-emetics Hx of bowel obstruction s/p colostomy and reanastomosis. Intermittent constipat ion, improving Monitor for GI distress and prn antiemetics available. Monitor liver function Rheum: inflammatory arthritis: On Humira 40mg sq every 2 weeks, next due 02/09/2020: hold with admission/AML : urinary urgency, incomplete emptying Started Flomax, patient previously on through a urologist. Given this anti-funga l will be fluconazole (especially since not currently neutropenic) Neuro: Had confusion during the night 02/12-. Got trazadone for the first time . Will d/c Psych: Insomnia: improved with 10mg melatonin, schedule qhs Monitor and offer support as needed. Consider Onc/Psych Consult Code status: DNAR-Full Intervention Unruly Ricks MD Subjective: Jhony Chi is a 75 y.o. male. Pt complaints of JOHNS, cough. Feels that he is retaining fluid Review of Systems: Constitutional: + fatigue NO fevers Eyes: no vision changes Ears, nose, mouth, throat, and face: no nosebleeds, gums bleeding L ear fullnes s, pain improved Respiratory: + cough + sob Cardiovascular: negative for chest pain, palpitations, lower extremity edema Gastrointestinal: negative for abd pain, nausea, vomiting, diarrhea, constipatio n MSK: no back or bone pain Genitourinary: + urinary hesitancy + urgency Integument/breast: negative for rash and skin lesions Hematologic/lymphatic: negative for bleeding Neurological: no confusion Objective: Medications: Scheduled Meds:acyclovir (ZOVIRAX) tablet 800 mg, 800 mg, Oral, BID allopurinoL (ZYLOPRIM) tablet 300 mg, 300 mg, Oral, QDAY [START ON 02/18/2020] decitabine (DACOGEN) 49.2 mg in sodium chloride 0.9% (NS) 10 9.84 mL IVPB, 20 mg/m2 (Treatment Plan Recorded), Intravenous, ONCE decitabine (DACOGEN) 49.2 mg in sodium chloride 0.9% (NS) 109.84 mL IVPB, 20 mg/ m2 (Treatment Plan Recorded), Intravenous, ONCE meropenem (MERREM) 1 g in sodium chloride 0.9% (NS) 100 mL IVPB (MB+)(EXTENDED I NFUSION), 1 g, Intravenous, Q8H* metoprolol tartrate (LOPRESSOR) tablet 12.5 mg, 12.5 mg, Oral, BID [START ON 02/18/2020] ondansetron (ZOFRAN) tablet 16 mg, 16 mg, Oral, ONCE posaconazole EC (NOXAFIL) tablet 300 mg, 300 mg, Oral, QDAY w/breakfast sodium chloride PF 0.9% flush 5-10 mL, 5-10 mL, Flush, FLUSH TID tamsulosin (FLOMAX) capsule 0.4 mg, 0.4 mg, Oral, QDAY after breakfast Continuous Infusions: PRN and Respiratory Meds:acetaminophen Q6H PRN, albuterol sulfate Q4H PRN, altep lase PRN (Brand Recorder from Rx), alum/mag hydroxide/simeth Q6H PRN, benzonatate TID P RN, guaiFENesin Q6H PRN, magnesium sulfate 4 g/50 mL PRN, melatonin QHS PRN, oxy metazoline BID PRN, polyethylene glycol 3350 QDAY PRN, potassium chloride in aliya er PRN (Brand Recorder from Rx) OR potassium chloride SR PRN (Brand Recorder from Rx), pro chlorperazine Q6H PRN OR prochlorperazine Q6H PRN, senna/docusate QDAY PRN, simethicone Q6H PRN, sodium chloride 0.9 % TKO infusion PRN, sodium chloride 0.9 % irrigation bottle PRN, sodium phosphate IVPB PRN (Brand Recorder from Rx), traMADoL Q6H PRN Vital Signs: Last Filed Vital Signs: 24 Hour Range BP: 140/56 (02/16 1241) Temp: 36.8 C (98.2 F) (02/16 1241) Pulse: 86 (02/16 1241) Respirations: 18 PER MINUTE (02/16 1241) SpO2: 96 % (02/16 1241) BP: (135-159)/(51-68) Temp: [36.6 C (97.9 F)-37.2 C (98.9 F)] Pulse: [80-96] Respirations: [18 PER MINUTE-21 PER MINUTE] SpO2: [94 %-97 %] Intensity Pain Scale (Self Report): 5 Verbal Pain Description: No Pain Vitals: 02/15/20 0800 02/16/20 0338 02/17/20 0216 Weight: 118.9 kg (262 lb 2 oz) 117 kg (257 lb 15 oz) 115.5 kg (254 lb 10.1 oz) Intake/Output Summary: (Last 24 hours) Intake/Output Summary (Last 24 hours) at 02/17/2020 1410 Last data filed at 02/17/2020 1003 Gross per 24 hour Intake 1181.75 ml Output 1475 ml Net -293.25 ml Performance Status (Karnofsky): 60% Requires some assistance, but able to care for most of needs ECOG PS: 2 VS reviewed General: Alert, cooperative, no distress, appears stated age Head: Normocephalic, without obvious abnormality, atraumatic Eyes: Conjunctivae/corneas clear. PERRL OP: No mucositis Lungs: CTAB Heart: Regular rate and rhythm Abdomen: Soft, non-tender. Bowel sounds normal. Distended Extremities: TRACE edema Skin: No rashes Neurologic: Grossly intact Lab Review: CBC w diff Lab Results Component Value Date/Time WBC 4.1 (L) 02/17/2020 02:22 AM RBC 2.05 (L) 02/17/2020 02:22 AM HGB 6.4 (L) 02/17/2020 02:22 AM HCT 19.6 (L) 02/17/2020 02:22 AM MCV 95.5 02/17/2020 02:22 AM MCH 30.9 02/17/2020 02:22 AM MCHC 32.4 02/17/2020 02:22 AM RDW 16.4 (H) 02/17/2020 02:22 AM PLTCT 31 (L) 02/17/2020 02:22 AM MPV 8.0 02/17/2020 02:22 AM Lab Results Component Value Date/Time ANC 1.06 (L) 02/17/2020 02:22 AM Comprehensive Metabolic Profile Lab Results Component Value Date/Time NA 139 02/17/2020 02:22 AM K 3.6 02/17/2020 02:22 AM CL 107 02/17/2020 02:22 AM CO2 23 02/17/2020 02:22 AM GAP 9 02/17/2020 02:22 AM BUN 27 (H) 02/17/2020 02:22 AM CR 1.44 (H) 02/17/2020 02:22 AM GLU 114 (H) 02/17/2020 02:22 AM Lab Results Component Value Date/Time CA 7.8 (L) 02/17/2020 02:22 AM PO4 3.5 02/17/2020 02:22 AM ALBUMIN 3.0 (L) 02/17/2020 02:22 AM TOTPROT 5.7 (L) 02/17/2020 02:22 AM ALKPHOS 232 (H) 02/17/2020 02:22 AM AST 31 02/17/2020 02:22 AM ALT 32 02/17/2020 02:22 AM TOTBILI 1.2 02/17/2020 02:22 AM GFR 48 (L) 02/17/2020 02:22 AM GFRAA 58 (L) 02/17/2020 02:22 AM Radiology Review: Pertinent radiology reviewed and discussed in assessment and plan. Unruly Ricks MD * Ama Zuluaga, [place] - 02/17/2020 7:46 AM CDT Shift: [id number] NEWS Score: 2, 1, 2, 5, 2 Pain: No pain issues this shift Nutrition: Immunosuppressed diet. GI/: Voids. Last BM 02/14. Adequate urine output. Pt stated he had mild nausea but declined wanting anything for it. Activity: 1 assist. High fall risk. Family: No visitors allowed at this time. Last Shower: 02/15 New Events or Follow-up: Hemoglobin was 6.4 this AM. Administered one unit of bl ood. -Potassium was 3.6 this AM and because he is high goal replacement and has issue s with nausea, IV potassium is being administered. * Eva Fong RN - 02/16/2020 3:51 PM CDT [facility] notified of COVID19 negative test result. Spoke with RN caring for patient to discontinue isolation specific to COVID and that patient should be transferre d to another unit as soon as able. Contact [facility] with any questions [phone] * Flavia Breen RN - 02/16/2020 1:50 PM CDT CHEMO NOTE Verified chemo consent signed and in chart. Verified initiate chemo order in O2 Blood return positive via: PICC Right DL Purple lumen BSA and dose double checked (agree with orders as written) with: yes Jennifer Ramos RN Labs/applicable tests checked: CBC and Comprehensive Metabolic Panel (CMP) Chemo regime: Drug/cycle/day C1Day8 decitabine (DACOGEN) 49.2 mg in sodium chloride 0.9% (NS) 109.84 mL IVPB Rate verified and armband double checkwith second RN: yes Patient education offered and stated understanding. Denies questions at this gonzález e. * Mu Ramirez DO - 02/16/2020 12:31 PM CDT Pulmonary Progress Note Admission Date: 02/06/2020 LOS: 10 days Impression: # fever in immunocompromised host # acute hypoxemic respiratory failure # abnormal imaging -- CT CHEST with bilateral, patchy GGOs # AML, receiving dacogen induction # hypervolemia -- elevated BNP on admission, bilateral pleural effusions, LVEF normal # CAD s/p 3-v CABG # prior tobacco use disorder Plan: - Initial COVID-19 test negative on 02/09, repeat testing pending - Galactomannan and fungitell pending - antimicrobials per primary team - Continue gentle diuresis to achieve net negative fluid status If 2nd COVID-19 testing negative, plan to proceed with FOB/BAL on Sunday, 02/[address] Hdz. Mu Ramirez DO PGY4 Pulmonary/Critical Care Fellow Pager [phone] Available on Shashank S: Feeling well. Denies dyspnea at rest. Admits some dyspnea on exertion. Admits occasional cough, which is improving. ROS: Admits occasional cough. Admits dyspnea on exertion. Scheduled Meds:acyclovir (ZOVIRAX) tablet 800 mg, 800 mg, Oral, BID allopurinoL (ZYLOPRIM) tablet 300 mg, 300 mg, Oral, QDAY [START ON 02/17/2020] decitabine (DACOGEN) 49.2 mg in sodium chloride 0.9% (NS) 1 09.84 mL IVPB, 20 mg/m2 (Treatment Plan Recorded), Intravenous, ONCE decitabine (DACOGEN) 49.2 mg in sodium chloride 0.9% (NS) 109.84 mL IVPB, 20 mg/ m2 (Treatment Plan Recorded), Intravenous, ONCE meropenem (MERREM) 1 g in sodium chloride 0.9% (NS) 100 mL IVPB (MB+)(EXTENDED I NFUSION), 1 g, Intravenous, Q8H* metoprolol tartrate (LOPRESSOR) tablet 12.5 mg, 12.5 mg, Oral, BID [START ON 02/17/2020] ondansetron (ZOFRAN) tablet 16 mg, 16 mg, Oral, ONCE ondansetron (ZOFRAN) tablet 16 mg, 16 mg, Oral, ONCE posaconazole EC (NOXAFIL) tablet 300 mg, 300 mg, Oral, QDAY w/breakfast sodium chloride PF 0.9% flush 5-10 mL, 5-10 mL, Flush, FLUSH TID tamsulosin (FLOMAX) capsule 0.4 mg, 0.4 mg, Oral, QDAY after breakfast Continuous Infusions: PRN and Respiratory Meds:acetaminophen Q6H PRN, albuterol sulfate Q4H PRN, altep lase PRN (Brand Recorder from Rx), alum/mag hydroxide/simeth Q6H PRN, benzonatate TID P RN, guaiFENesin Q6H PRN, magnesium sulfate 4 g/50 mL PRN, oxymetazoline BID PRN, polyethylene glycol 3350 QDAY PRN, potassium chloride in water PRN (Brand Recorder from Rx) OR potassium chloride SR PRN (Brand Recorder from Rx), prochlorperazine Q6H PRN OR prochlorperazine Q6H PRN, senna/docusate QDAY PRN, simethicone Q6H PRN, sodium chloride 0.9 % TKO infusion PRN, sodium chloride 0.9% irrigation bottle PRN, sodium phosphate IVPB PRN (Brand Recorder from Rx), traMADoL Q6H PRN Vital Signs: Last Filed in 24 hours Vital Signs: 24 hour Range BP: 130/57 (02/15 1143) Temp: 37.2 C (99 F) (02/15 1143) Pulse: 80 (02/15 1143) Respirations: 18 PER MINUTE (02/15 114) SpO2: 98 % (02/15 114) BP: (130-169)/(44-66) Temp: [36.9 C (98.4 F)-38 C (100.4 F)] Pulse: [80-94] Respirations: [16 PER MINUTE-28 PER MINUTE] SpO2: [91 %-98 %] Physical Exam: Gen: NAD, sitting in chair CV: RRR, no mrg Lungs: decreased breath sounds at bases, no wheeze, normal WOB Abd: Nondistended Ext: trace pitting LE edema Skin: no rash Neuro: grossly intact Psych: normal mood/affect Lab/Radiology/Other Diagnostic Tests: 24-hour labs: Results for orders placed or performed during the hospital encounter of 02/06/20 (from the past 24 hour(s)) PHOSPHORUS CELLULAR THERAPEUTICS Collection Time: 02/15/20 2:50 PM Result Value Ref Range Phosphorus 3.3 2.0 - 4.5 MG/DL RVP VIRAL PANEL PCR Collection Time: 02/15/20 2:50 PM Result Value Ref Range Specimen Source NASOPHARYNGEAL SWAB This panel does not detect SARS-CoV-2, the etiologic agent of COVID-19. Contact Infection Control for testing of patients with suspected SARS-CoV-2 infection. This assay uses analyte specific reagents and has not been cleared by the [place] Food and Drug Administration. The performance characterics were determined by the [facility]. Adenovirus NOT DETECTED DN-NOT DETECTED Coronavirus 229E NOT DETECTED DN-NOT DETECTED Coronavirus HKU1 NOT DETECTED DN-NOT DETECTED Coronavirus NL63 NOT DETECTED DN-NOT DETECTED Coronavirus OC43 NOT DETECTED DN-NOT DETECTED Human Metapneumovirus NOT DETECTED DN-NOT DETECTED Human Rhinovirus/ENTEROVIRUS NOT DETECTED DN-NOT DETECTED Influenza A H1N1 2009 NOT DETECTED DN-NOT DETECTED Influenza A H1 NOT DETECTED DN-NOT DETECTED Influenza A H3 NOT DETECTED DN-NOT DETECTED Influenza B NOT DETECTED DN-NOT DETECTED Parainfluenza 1 NOT DETECTED DN-NOT DETECTED Parainfluenza 2 NOT DETECTED DN-NOT DETECTED Parainfluenza 3 NOT DETECTED DN-NOT DETECTED Parainfluenza 4 NOT DETECTED DN-NOT DETECTED RSV NOT DETECTED DN-NOT DETECTED Bordetella Pertussis NOT DETECTED DN-NOT DETECTED Chlamydophila Pneumoniae NOT DETECTED DN-NOT DETECTED Mycoplasma Pneumoniae NOT DETECTED DN-NOT DETECTED COMPREHENSIVE METABOLIC PANEL CELLULAR THERAPEUTICS Collection Time: 02/16/20 3:40 AM Result Value Ref Range Sodium 139 137 - 147 MMOL/L Potassium 3.9 3.5 - 5.1 MMOL/L Chloride 106 98 - 110 MMOL/L Glucose 108 (H) 70 - 100 MG/DL Blood Urea Nitrogen 30 (H) 7 - 25 MG/DL Creatinine 1.59 (H) 0.4 - 1.24 MG/DL Calcium 8.4 (L) 8.5 - 10.6 MG/DL Total Protein 5.9 (L) 6.0 - 8.0 G/DL Total Bilirubin 1.2 0.3 - 1.2 MG/DL Albumin 3.1 (L) 3.5 - 5.0 G/DL Alk Phosphatase 208 (H) 25 - 110 U/L AST (SGOT) 27 7 - 40 U/L CO2 26 21 - 30 MMOL/L ALT (SGPT) 28 7 - 56 U/L Anion Gap 7 3 - 12 eGFR Non 42 (L) >60 mL/min eGFR 51 (L) >60 mL/min PHOSPHORUS CELLULAR THERAPEUTICS Collection Time: 02/16/20 3:40 AM Result Value Ref Range Phosphorus 4.1 2.0 - 4.5 MG/DL CBC AND DIFF CELLULAR THERAPEUTICS Collection Time: 02/16/20 3:40 AM Result Value Ref Range White Blood Cells 5.4 4.5 - 11.0 K/UL RBC 2.21 (L) 4.4 - 5.5 M/UL Hemoglobin 7.2 (L) 13.5 - 16.5 GM/DL Hematocrit 21.0 (L) 40 - 50 % MCV 95.3 80 - 100 FL MCH 32.4 26 - 34 PG MCHC 34.0 32.0 - 36.0 G/DL RDW 16.3 (H) 11 - 15 % Platelet Count 30 (L) 150 - 400 K/UL MPV 7.7 7 - 11 FL Nucleated RBCs 1 K/UL Segmented Neutrophils 26 (L) 41 - 77 % Lymphocytes 20 (L) 24 - 44 % Monocytes 27 (H) 4 - 12 % Eosinophil 2 0 - 5 % Blast 25 % ANISO PRESENT POIK PRESENT Ovalocyte PRESENT MICRO PRESENT Platelet Estimate MKD DEC Absolute Neutrophil Count Manual 1.40 (L) 1.8 - 7.0 K/UL PREPARE APHERESIS PLATELETS Collection Time: 02/16/20 4:29 AM Result Value Ref Range Units Ordered 1 Unit Number [id number] Blood Component Type APHERESIS PLT,LEUKO REDUCED,IRRADIATED,3RD CONT. Unit Division 0 Status OF Unit ISSUED Transfusion Status OK TO TRANSFUSE Pertinent radiology reviewed. Associated attestation - Javier Hdz MD - 02/16/2020 12:47 PM CDT ATTESTATION I personally performed the guardado portions of the E/M visit, discussed case with re sident and concur with resident documentation of history, physical exam, assessm ent, and treatment plan unless otherwise noted. Staff name: Javier Hdz MD Date: 02/16/2020 * Unruly Ricks MD - 02/16/2020 8:58 AM CDT Acute Leukemia Service Progress Note Today's Date: 02/16/2020 Name: Jhony Chi Admission Date: 02/06/2020 LOS: LOS: 10 days Assessment/Plan: Active Problems: Paroxysmal A-fib (HCC) CAD (coronary artery disease) Inflammatory arthritis Hyperlipidemia AML (acute myeloblastic leukemia) (HCC) Pancytopenia due to antineoplastic chemotherapy (HCC) Pneumonia of both lungs due to infectious organism Primary diagnosis: Acute monocytic leukemia Cytogenetics/FISH: AML/ETO, CBFB, MLL negative, p53 slightly above threshold so positive 47, XY,+11 [2]/48,sl,+8, add (17)(p11.2)[cp2]/49, sdl1, +14[cp2]/47,sl, -11,+i(1 1)(p10), add(10)(p11.2)[cp3]/46, XY[11] NGS: pending Referring physician: Dr. Cameron Abrams Kensal Chemotherapy plan: Dacogen 10 day, ? venetoclax based on ability to get however Rx coverage through [facility], so unlikely to get cycle 1 Will need LP/IT chemo at some point due to monocytic features, once WBC<1 Day 10 of 10-day dacogen induction BM Bx performed at outside hospital prior to arrival, slides sent to path Pending our cytogenetics and 141 gene panel NGS testing. Heme: Pancytopenia due to chemo Bleeding behind left TM: Symptoms started 02/04. Transfuse platelets to keep > 30k Transfusion 02/16/20: NO transfusions Monitor CBC for transfusion needs, goal Hgb>7 and platelets >30K DVT Prophylaxis: SCDs, Chemical prophylaxis contraindicated due to bleeding, thr ombocytopenia FEN/Renal: Acute kidney injury: renally adjust medications especially in window of TLS. [facility] creatinine 1, current is 1.59. Hyperuricemia: s/p rasburicase 3mg IV x 1 based on outside lab Allopurinol 300mg po daily until WBC<1 Add'l Lasix 02/12 due to abdominal distention/coronary disease Monitor I/O/daily weights and use lasix prn to maintain euvolemia Immunocompromised diet ID: Febrile [id number] on 02/08, afebrile since Cultures drawn, empiric cefepime initiated. Covid 19 Negative, low pre-test probability 02/14 CXR with progression of bilateral lower lung pneumonia. Chest CT 02/14 with Multifocal patchy groundglass opacities and interstitial prominence throughout both lungs, greater on the right, which are nonspecific though sugges tive of multifocal atypical pneumonia and/or pulmonary edema - changed abx fluconazole to posaconazole, cefepime to meropenem - check fungitell, galact - pending. RVP negative Consulted pulm re: Bronchoscopy. Needs to have repeat COVID testing (neg x 2) b efore bronch Drug Dates Cefepime 02/08-02/14 Posa 02/14-current Meropenem 02/14 - current Continue prophylactic anti-infectives: fluconazole, acyclovir CV: Type 2 NSTEMI: echo Ef 60%, no significant abnormalities Chest pain: cardiology consulted, recs from 02.08: No further recommendations, no t a candidate for cardiac angiogram. 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 Albuterol nebs prn. Chest CT 02/14 with multi-focal pneumonia - see ID above GI: Nausea: improving with anti-emetics Hx of bowel obstruction s/p colostomy and reanastomosis. Intermittent constipat ion, improving Monitor for GI distress and prn antiemetics available. Monitor liver function Rheum: inflammatory arthritis: On Humira 40mg sq every 2 weeks, next due 02/09/2020: hold with admission/AML : urinary urgency, incomplete emptying Started Flomax, patient previously on through a urologist. Given this anti-funga l will be fluconazole (especially since not currently neutropenic) Neuro: Had confusion during the night 02/12-. Got trazadone for the first time . Will d/c Psych: Insomnia: improved with 10mg melatonin, schedule qhs Monitor and offer support as needed. Consider Onc/Psych Consult Code status: DNAR-Full Intervention Unruly Ricks MD Subjective: Jhony Chi is a 75 y.o. male. Pt with mild cough, less sob Review of Systems: Constitutional: negative for fevers + fatigue Eyes: no vision changes Ears, nose, mouth, throat, and face: no nosebleeds, gums bleeding L ear fullnes s, pain improved Respiratory: + cough + sob - less Cardiovascular: negative for chest pain, palpitations, lower extremity edema Gastrointestinal: negative for abd pain, nausea, vomiting, diarrhea, constipatio n MSK: no back or bone pain Genitourinary: + urinary hesitancy + urgency Integument/breast: negative for rash and skin lesions Hematologic/lymphatic: negative for bleeding Neurological: no confusion Objective: Medications: Scheduled Meds:acyclovir (ZOVIRAX) tablet 800 mg, 800 mg, Oral, BID allopurinoL (ZYLOPRIM) tablet 300 mg, 300 mg, Oral, QDAY [START ON 02/17/2020] decitabine (DACOGEN) 49.2 mg in sodium chloride 0.9% (NS) 1 09.84 mL IVPB, 20 mg/m2 (Treatment Plan Recorded), Intravenous, ONCE decitabine (DACOGEN) 49.2 mg in sodium chloride 0.9% (NS) 109.84 mL IVPB, 20 mg/ m2 (Treatment Plan Recorded), Intravenous, ONCE meropenem (MERREM) 1 g in sodium chloride 0.9% (NS) 100 mL IVPB (MB+)(EXTENDED I NFUSION), 1 g, Intravenous, Q8H* metoprolol tartrate (LOPRESSOR) tablet 12.5 mg, 12.5 mg, Oral, BID [START ON 02/17/2020] ondansetron (ZOFRAN) tablet 16 mg, 16 mg, Oral, ONCE ondansetron (ZOFRAN) tablet 16 mg, 16 mg, Oral, ONCE posaconazole EC (NOXAFIL) tablet 300 mg, 300 mg, Oral, QDAY w/breakfast sodium chloride PF 0.9% flush 5-10 mL, 5-10 mL, Flush, FLUSH TID tamsulosin (FLOMAX) capsule 0.4 mg, 0.4 mg, Oral, QDAY after breakfast Continuous Infusions: PRN and Respiratory Meds:acetaminophen Q6H PRN, albuterol sulfate Q4H PRN, altep lase PRN (Brand Recorder from Rx), alum/mag hydroxide/simeth Q6H PRN, benzonatate TID P RN, guaiFENesin Q6H PRN, magnesium sulfate 4 g/50 mL PRN, oxymetazoline BID PRN, polyethylene glycol 3350 QDAY PRN, potassium chloride in water PRN (Brand Recorder from Rx) OR potassium chloride SR PRN (Brand Recorder from Rx), prochlorperazine Q6H PRN OR prochlorperazine Q6H PRN, senna/docusate QDAY PRN, simethicone Q6H PRN, sodium chloride 0.9 % TKO infusion PRN, sodium chloride 0.9% irrigation bottle PRN, sodium phosphate IVPB PRN (Brand Recorder from Rx), traMADoL Q6H PRN Vital Signs: Last Filed Vital Signs: 24 Hour Range BP: 146/48 (02/16 852) Temp: 36.9 C (98.4 F) (02/16 852) Pulse: 94 (02/16 852) Respirations: 22 PER MINUTE (02/16 852) SpO2: 95 % (02/16 852) BP: (133-169)/(44-66) Temp: [36.9 C (98.4 F)-38 C (100.4 F)] Pulse: [80-94] Respirations: [16 PER MINUTE-28 PER MINUTE] SpO2: [91 %-96 %] Intensity Pain Scale (Self Report): 5 Verbal Pain Description: Moderate Pain Vitals: 02/14/20 0532 02/15/20 0800 02/16/20 0338 Weight: 120.8 kg (266 lb 5.1 oz) 118.9 kg (262 lb 2 oz) 117 kg (257 lb 15 oz) Intake/Output Summary: (Last 24 hours) Intake/Output Summary (Last 24 hours) at 02/16/2020 0858 Last data filed at 02/16/2020 0740 Gross per 24 hour Intake 854 ml Output 2500 ml Net -1646 ml Performance Status (Karnofsky): 60% Requires some assistance, but able to care for most of needs ECOG PS: 2 VS reviewed General: Alert, cooperative, no distress, appears stated age Head: Normocephalic, without obvious abnormality, atraumatic Eyes: Conjunctivae/corneas clear. PERRL OP: No mucositis Lungs: Decreased bs at bases Heart: Regular rate and rhythm Abdomen: Soft, non-tender. Bowel sounds normal. Distended Extremities:Trace LE edema Skin: Skin color, texture, turgor normal. No rashes or lesions Neurologic: Grossly intact Lab Review: CBC w diff Lab Results Component Value Date/Time WBC 5.4 02/16/2020 03:40 AM RBC 2.21 (L) 02/16/2020 03:40 AM HGB 7.2 (L) 02/16/2020 03:40 AM HCT 21.0 (L) 02/16/2020 03:40 AM MCV 95.3 02/16/2020 03:40 AM MCH 32.4 02/16/2020 03:40 AM MCHC 34.0 02/16/2020 03:40 AM RDW 16.3 (H) 02/16/2020 03:40 AM PLTCT 30 (L) 02/16/2020 03:40 AM MPV 7.7 02/16/2020 03:40 AM Lab Results Component Value Date/Time ANC 1.40 (L) 02/16/2020 03:40 AM Comprehensive Metabolic Profile Lab Results Component Value Date/Time NA 139 02/16/2020 03:40 AM K 3.9 02/16/2020 03:40 AM CL 106 02/16/2020 03:40 AM CO2 26 02/16/2020 03:40 AM GAP 7 02/16/2020 03:40 AM BUN 30 (H) 02/16/2020 03:40 AM CR 1.59 (H) 02/16/2020 03:40 AM GLU 108 (H) 02/16/2020 03:40 AM Lab Results Component Value Date/Time CA 8.4 (L) 02/16/2020 03:40 AM PO4 4.1 02/16/2020 03:40 AM ALBUMIN 3.1 (L) 02/16/2020 03:40 AM TOTPROT 5.9 (L) 02/16/2020 03:40 AM ALKPHOS 208 (H) 02/16/2020 03:40 AM AST 27 02/16/2020 03:40 AM ALT 28 02/16/2020 03:40 AM TOTBILI 1.2 02/16/2020 03:40 AM GFR 42 (L) 02/16/2020 03:40 AM GFRAA 51 (L) 02/16/2020 03:40 AM Radiology Review: Pertinent radiology reviewed and discussed in assessment and plan. Unruly Ricks MD * Sejal Leon RN - 02/16/2020 6:33 AM CDT Shift:[id number] NEWS Score: 5- Resp & O2 sat 7- HR, Resp, & O2 sat 1- O2 sat Pain:6/10 in throat, pt states it feels like he is swallowing rocks Nutrition:Immunosuppressed diet. Good appetite. GI/:LBM 02/14.Voiding adequate amts clear dark yellow urine. Activity:SBA w/walker Family:No family present this shift. Last Shower:02/14 New Events or Follow-up: Robitussin given for dry cough. Replacements: Platelets 30 Potassium 3.9 * Sejal Leon, [place] - 02/15/2020 11:50 PM CDT 02/15/[id number] Vitals Temp 37.4 C (99.4 F) -- (!) 38 C (100.4 F) Temperature Source Oral -- Oral Pulse 91 -- -- Respirations (!) 26 PER MINUTE -- -- SpO2 (!) 91 % 94 % -- $$ O2 Delivery RA NC -- $$ O2 Device -- Cannula -- O2 Liter Flow -- 1.5 Lpm -- BP (!) 169/62 (!) 150/61 -- Mean NBP (Calculated) 98 MM HG 91 MM HG -- 02/15/20 2338 Vitals Temp 37.4 C (99.4 F) Temperature Source Oral Pulse -- Respirations -- SpO2 -- $$ O2 Delivery -- $$ O2 Device -- O2 Liter Flow -- BP -- Mean NBP (Calculated) -- Dr. Sargent notified. No new orders. CTM * Malia Laureano RN - 02/15/2020 6:13 PM CDT Shift:[id number] NEWS: 0800-4 (HR & O2) reassess 3 (HR & O2) 1200-1 (O2) 1600-5 (RR & O2) Nutrition: Breakfast-100% meal tray Lunch-cookies Dinner-pb&j & cookies PO liquid intake ~700ml Activity: HFR, Compliant with bundle. Did not walk in halls d/t r/o COVID. Sat in chair for majority of the day. Seen with weak, steady gait, requires assist x 1 and uses walker. Pain: No c/o pain throughout the day. GI/: last BM today x 1 described as formed. No c/o nausea throughout the day. NS rinses at sink and pt able to verbalize correct use. No s/sx of mucositis at this time. Voiding yellow, clear urine in adequate amount without difficulty per pt report. CARDIOPULM: regular heart sounds, SBP elevated in 140s for most of the day. Liborio at LE 2+ edema observed. PICC c/d/i. Lungs CTA. Runny nose and cough observed. Robitussin given x 1, pt reports no improvement after administration. IS encouraged throughout the day. CXR comple hannah this AM d/t continued dry cough, followed by CT chest. New orders include p ulmonary consult, 40 IV lasix this early evening, antiinfectives changed, COVID testing & isolation completed and in place. Tentative plans for bronch Sunday. SKIN/MS: no issues Family: none at bedside. Updated pt's SO over the phone per his request regardi ng upcoming bronchoscopy. Last shower/Linen change/Line care: today Follow up: results on COVID test in process * Malia Laureano RN - 02/15/2020 2:32 PM CDT CHEMO NOTE Verified chemo consent signed and in chart. Verified initiate chemo order in O2 Blood return positive via: PICC Right DL, Red lumen BSA and dose double checked (agree with orders as written) with: yes Jennifer Ramos RN Labs/applicable tests checked: CBC and Comprehensive Metabolic Panel (CMP) Chemo regime: Drug/cycle/day Cycle 1 Day 7 decitabine (DACOGEN) 49.2 mg in sodium chloride 0.9% (NS) 109.84 mL IVPB Rate verified and armband double checkwith second RN: yes Patient education offered and stated understanding. Denies questions at this gonzález e. * Unruly Ricks MD - 02/15/2020 11:00 AM CDT Acute Leukemia Service Progress Note Today's Date: 02/15/2020 Name: Jhony Chi Admission Date: 02/06/2020 LOS: LOS: 9 days Assessment/Plan: Active Problems: Paroxysmal A-fib (HCC) CAD (coronary artery disease) Inflammatory arthritis Hyperlipidemia AML (acute myeloblastic leukemia) (HCC) Pancytopenia due to antineoplastic chemotherapy (HCC) Primary diagnosis: Acute monocytic leukemia Cytogenetics/FISH: AML/ETO, CBFB, MLL negative, p53 slightly above threshold so positive 47, XY,+11 [2]/48,sl,+8, add (17)(p11.2)[cp2]/49, sdl1, +14[cp2]/47,sl, -11,+i(1 1)(p10), add(10)(p11.2)[cp3]/46, XY[11] NGS: pending Referring physician: Dr. Cameron Abrams, [place] Chemotherapy plan: Dacogen 10 day, ? venetoclax based on ability to get however Rx coverage [facility], so unlikely to get cycle 1 Will need LP/IT chemo at some point due to monocytic features, once WBC<1 Day 7/10 of 10-day dacogen induction BM Bx performed at outside hospital prior to arrival, will request records. Pending our cytogenetics and 141 gene panel NGS testing. Heme: Pancytopenia due to chemo Bleeding behind left TM: Symptoms started 02/04. Transfuse platelets to keep > 30k Transfusion 02/15/20: Platelet transfusions Monitor CBC for transfusion needs, goal Hgb>7 and platelets >30K DVT Prophylaxis: SCDs, Chemical prophylaxis contraindicated due to bleeding, thr ombocytopenia FEN/Renal: Acute kidney injury: renally adjust medications especially in window of TLS. Bas nae creatinine 1, current is 1.56. CrCl improving to 53 Hyperuricemia: s/p rasburicase 3mg IV x 1 based on outside lab Allopurinol 300mg po daily until WBC<1 Add'l Lasix 02/12 due to abdominal distention/coronary disease Monitor I/O/daily weights and use lasix prn to maintain euvolemia Immunocompromised diet ID: Febrile 38.8 on 02/08, afebrile since Cultures drawn, empiric cefepime initiated. Covid 19 Negative, low pre-test probability 02/14 CXR with progression of bilateral lower lung pneumonia. Check Chest CT - change abx fluconazole to posaconazole, cefepime to meropenem - check fungitell, galact Drug Dates Cefepime 02/08-02/14 Posa 02/14-current Meropenem 02/14 - current Continue prophylactic anti-infectives: fluconazole, acyclovir CV: Type 2 NSTEMI: echo Ef 60%, no significant abnormalities Chest pain: cardiology consulted, recs from 02.08: No further recommendations, no t a candidate for cardiac angiogram. 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 Albuterol nebs prn. 02/14 increasing complaints of cough, CXR with left and right lower lung reticu lar opacity. Check Chest CT to better characterize GI: Nausea: improving with anti-emetics Hx of bowel obstruction s/p colostomy and reanastomosis. Intermittent constipat ion, improving Monitor for GI distress and prn antiemetics available. Monitor liver function Rheum: inflammatory arthritis: On Humira 40mg sq every 2 weeks, next due 02/09/2020: hold with admission/AML : urinary urgency, incomplete emptying Started Flomax, patient previously on through a urologist. Given this anti-funga l will be fluconazole (especially since not currently neutropenic) Neuro: Had confusion during the night 02/12-. Got trazadone for the first time . Will d/c Psych: Insomnia: improved with 10mg melatonin, schedule qhs Monitor and offer support as needed. Consider Onc/Psych Consult Code status: DNAR-Full Intervention Unruly Ricks MD Subjective: Jhony Chi is a 75 y.o. male. Pt says confusion has resolved. Continues with dry cough Review of Systems: Constitutional: negative for fevers* + fatigue Eyes: no vision changes Ears, nose, mouth, throat, and face: no nosebleeds, gums bleeding L ear fullnes s, pain improved Respiratory: + cough + sob Cardiovascular: negative for chest pain, palpitations, lower extremity edema Gastrointestinal: negative for abd pain, nausea, vomiting, diarrhea, constipatio n MSK: no back or bone pain Genitourinary: + urinary hesitancy + urgency Integument/breast: negative for rash and skin lesions Hematologic/lymphatic: negative for bleeding Neurological: confusion during the night - resolved Objective: Medications: Scheduled Meds:acyclovir (ZOVIRAX) tablet 400 mg, 400 mg, Oral, BID allopurinoL (ZYLOPRIM) tablet 300 mg, 300 mg, Oral, QDAY cefepime (MAXIPIME) 2 g in sodium chloride 0.9% (NS) 100 mL IVPB (MB+), 2 g, Int ravenous, Q12H* [START ON 02/16/2020] decitabine (DACOGEN) 49.2 mg in sodium chloride 0.9% (NS) 1 09.84 mL IVPB, 20 mg/m2 (Treatment Plan Recorded), Intravenous, ONCE decitabine (DACOGEN) 49.2 mg in sodium chloride 0.9% (NS) 109.84 mL IVPB, 20 mg/ m2 (Treatment Plan Recorded), Intravenous, ONCE fluconazole (DIFLUCAN) tablet 200 mg, 200 mg, Oral, QDAY metoprolol tartrate (LOPRESSOR) tablet 12.5 mg, 12.5 mg, Oral, BID [START ON 02/16/2020] ondansetron (ZOFRAN) tablet 16 mg, 16 mg, Oral, ONCE ondansetron (ZOFRAN) tablet 16 mg, 16 mg, Oral, ONCE sodium chloride PF 0.9% flush 5-10 mL, 5-10 mL, Flush, FLUSH TID tamsulosin (FLOMAX) capsule 0.4 mg, 0.4 mg, Oral, QDAY after breakfast Continuous Infusions: PRN and Respiratory Meds:acetaminophen Q6H PRN, albuterol sulfate Q4H PRN, altep lase PRN (Brand Recorder from Rx), alum/mag hydroxide/simeth Q6H PRN, benzonatate TID P RN, guaiFENesin Q6H PRN, magnesium sulfate 4 g/50 mL PRN, oxymetazoline BID PRN, polyethylene glycol 3350 QDAY PRN, potassium chloride in water PRN (Brand Recorder from Rx) OR potassium chloride SR PRN (Brand Recorder from Rx), prochlorperazine Q6H PRN OR prochlorperazine Q6H PRN, senna/docusate QDAY PRN, simethicone Q6H PRN, sodium chloride 0.9 % TKO infusion PRN, sodium chloride 0.9% irrigation bottle PRN, sodium phosphate IVPB PRN (Brand Recorder from Rx), traMADoL Q6H PRN Vital Signs: Last Filed Vital Signs: 24 Hour Range BP: 142/60 (02/14 933) Temp: 37.1 C (98.7 F) (02/14 933) Pulse: 84 (02/14 933) Respirations: 18 PER MINUTE (02/14 933) SpO2: 96 % (02/14 933) BP: (121-146)/(54-85) Temp: [36.7 C (98 F)-37.9 C (100.2 F)] Pulse: [84-98] Respirations: [18 PER MINUTE-20 PER MINUTE] SpO2: [90 %-96 %] Intensity Pain Scale (Self Report): 6 Verbal Pain Description: Moderate Pain Vitals: 02/13/20 0335 02/14/20 0532 02/15/20 0800 Weight: 121.8 kg (268 lb 8.3 oz) 120.8 kg (266 lb 5.1 oz) 118.9 kg (262 lb 2 oz) Intake/Output Summary: (Last 24 hours) Intake/Output Summary (Last 24 hours) at 02/15/2020 1100 Last data filed at 02/15/2020 1030 Gross per 24 hour Intake 970 ml Output 1625 ml Net -655 ml Performance Status (Karnofsky): 60% Requires some assistance, but able to care for most of needs ECOG PS: 2 Physical Exam Vitals signs and nursing note reviewed. Constitutional: Appearance: Normal appearance. HENT: Mouth/Throat: Mouth: Mucous membranes are moist. Pharynx: No oropharyngeal exudate. Eyes: General: No scleral icterus. Cardiovascular: Rate and Rhythm: Normal rate and regular rhythm. Pulses: Normal pulses. Heart sounds: Normal heart sounds. No murmur. Pulmonary: Breath sounds: Normal breath sounds. No rales. Abdominal: General: There is distension. Tenderness: There is no abdominal tenderness. There is no guarding. Musculoskeletal: Right lower leg: No edema. Left lower leg: No edema. Neurological: General: No focal deficit present. Mental Status: He is alert and oriented to person, place, and time. Cranial Nerves: No cranial nerve deficit. Psychiatric: Mood and Affect: Mood normal. Lab Review: CBC w diff Lab Results Component Value Date/Time WBC 6.7 02/15/2020 03:10 AM RBC 2.28 (L) 02/15/2020 03:10 AM HGB 7.6 (L) 02/15/2020 03:10 AM HCT 21.8 (L) 02/15/2020 03:10 AM MCV 95.7 02/15/2020 03:10 AM MCH 33.1 02/15/2020 03:10 AM MCHC 34.6 02/15/2020 03:10 AM RDW 17.1 (H) 02/15/2020 03:10 AM PLTCT 26 (L) 02/15/2020 03:10 AM MPV 8.2 02/15/2020 03:10 AM Lab Results Component Value Date/Time ANC 0.87 (L) 02/15/2020 03:10 AM Comprehensive Metabolic Profile Lab Results Component Value Date/Time NA 138 02/15/2020 03:10 AM K 4.3 02/15/2020 03:10 AM CL 108 02/15/2020 03:10 AM CO2 23 02/15/2020 03:10 AM GAP 7 02/15/2020 03:10 AM BUN 34 (H) 02/15/2020 03:10 AM CR 1.56 (H) 02/15/2020 03:10 AM GLU 104 (H) 02/15/2020 03:10 AM Lab Results Component Value Date/Time CA 8.5 02/15/2020 03:10 AM PO4 4.0 02/15/2020 03:10 AM ALBUMIN 3.2 (L) 02/15/2020 03:10 AM TOTPROT 6.1 02/15/2020 03:10 AM ALKPHOS 215 (H) 02/15/2020 03:10 AM AST 26 02/15/2020 03:10 AM ALT 29 02/15/2020 03:10 AM TOTBILI 1.1 02/15/2020 03:10 AM GFR 43 (L) 02/15/2020 03:10 AM GFRAA 52 (L) 02/15/2020 03:10 AM Radiology Review: Pertinent radiology reviewed and discussed in assessment and plan. Unruly Ricks MD * Sejal Leon, [place] - 02/15/2020 6:00 AM CDT Shift: NEWS Score: 3- HR & O2 Sat 4- HR & O2 Sat 3- HR & O2 sat Pain:No complain of pain this shift Nutrition:Immunosuppressed diet. Good appetite. GI/:LBM 02/13.Voiding adequate amts clear dark yellow urine. Activity:SBA. Family:No family present this shift. Last Shower:02/13 New Events or Follow-up: COVID-19 negative 02/11 Robitussin given for dry cough. Replacements: Platelets:26 * Abhijeet Ryan, [place] - 02/14/2020 6:42 PM CDT Shift:02/14/20 Day NEWS Score: 0759-1 (HR) 1156-1 (SpO2) 1700-2 (SpO2) Pain:No complain of pain this shift Nutrition:Immunosuppressed diet. Good appetite. GI/:LBM 02/12.Voiding adequate amts clear dark yellow urine. Pt nauseated a fter chemo. Compazine given. Activity:SBA. Family:No family present this shift. Last Shower:02/13 New Events or Follow-up: COVID-19 negative 02/11 Pt received chemo today * Karena Tenorio RN - 02/14/2020 3:08 PM CDT CHEMO NOTE Verified chemo consent signed and in chart. Verified initiate chemo order in O2 Blood return positive via: PICC R DL Red lumen BSA and dose double checked (agree with orders as written) with: yes [place] Labs/applicable tests checked: CBC and Comprehensive Metabolic Panel (CMP) Chemo regime: C1D10 dacogen and venetoclax decitabine (DACOGEN) 49.2 mg in sodium chloride 0.9% (NS) 109.84 mL IVPB Rate verified and armband double checkwith second RN: yes Patient education offered and stated understanding. Denies questions at this gonzález e. 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 Cameron Abrams [place] Chemotherapy plan: Dacogen 10 day, ? venetoclax based on ability to get however Rx coverage [facility], so unlikely to get cycle 1 Will need LP/IT chemo at some point due to monocytic features Day 6/10 of 10-day dacogen induction BM Bx performed at outside hospital prior to arrival, will request records. Pending our cytogenetics and 141 gene panel NGS testing. Heme: Pancytopenia due to chemo Hyperleukocytosis improving s/p hydrea, current chemo Bleeding behind left TM: Symptoms started 02/04. Transfuse platelets to keep > 30k Transfusion 02/14/20: NO transfusions Monitor CBC for transfusion needs, goal Hgb>7 and platelets >30K No signs of DIC, will stop checking DIC labs DVT Prophylaxis: SCDs, Chemical prophylaxis contraindicated due to bleeding FEN/Renal: Acute kidney injury: renally adjust medications especially in window of TLS. Bas nae creatinine 1, current is 1.8 Hyperuricemia: s/p rasburicase 3mg IV x 1 based on outside lab Allopurinol loading then 300mg po daily until WBC<1 Add'l Lasix 02/12 due to abdominal distention/coronary disease Immunocompromised diet ID: Febrile 38.8 on 02/08, afebrile since Cultures drawn, empiric cefepime initiated. Cultures NGTD Covid 19 Negative, low pre-test probability Drug Dates Cefepime 02/08-Current Continue prophylactic anti-infectives: fluconazole, acyclovir CV: Type 2 NSTEMI: echo Ef 60%, no significant abnormalities Chest pain: cardiology consulted, recs from 02.08: No further recommendations, no t a candidate for cardiac angiogram. Given that left ventricular function is no rmal they would be fine with him receiving an anthracycline should his clinical situation require it. 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 Albuterol nebs prn GI: Nausea: improving with anti-emetics Hx of bowel obstruction s/p colostomy and reanastomosis. Intermittent constipat ion, improving Monitor for GI distress and prn antiemetics available. Monitor liver function Rheum: inflammatory arthritis: On Humira 40mg sq every 2 weeks, next due 02/09/2020: hold : urinary urgency, incomplete emptying Started Flomax, patient previously on through a urologist. Given this anti-funga l will be fluconazole (especially since not currently neutropenic) Neuro: Had confusion during the night. Got trazadone for the first time. Will d/c Psych: Insomnia: improved with 10mg melatonin, schedule qhs Monitor and offer support as needed. Consider Onc/Psych Consult Code status: DNAR-Full Intervention Unruly Ricks MD Subjective: Jhony Chi is a 75 y.o. male. Pt cont with ear fullness, decreased hearing. Cough and shortness of breath are intermittent Woke during the night with confusion, has been oriented this morning Review of Systems: Constitutional: negative for fevers and chills + fatigue Eyes: no vision changes Ears, nose, mouth, throat, and face: no nosebleeds, gums bleeding L ear fullnes s, pain improved Respiratory: + cough + sob Cardiovascular: negative for chest pain, palpitations, lower extremity edema Gastrointestinal: negative for abd pain, nausea, vomiting, diarrhea, constipatio n MSK: no back or bone pain Genitourinary: + urinary hesitancy + urgency Integument/breast: negative for rash and skin lesions Hematologic/lymphatic: negative for bleeding Neurological: confusion during th enight Objective: Medications: Scheduled Meds:acyclovir (ZOVIRAX) tablet 400 mg, 400 mg, Oral, BID cefepime (MAXIPIME) 2 g in sodium chloride 0.9% (NS) 100 mL IVPB (MB+), 2 g, Int ravenous, Q12H* [START ON 02/15/2020] decitabine (DACOGEN) 49.2 mg in sodium chloride 0.9% (NS) 1 09.84 mL IVPB, 20 mg/m2 (Treatment Plan Recorded), Intravenous, ONCE decitabine (DACOGEN) 49.2 mg in sodium chloride 0.9% (NS) 109.84 mL IVPB, 20 mg/ m2 (Treatment Plan Recorded), Intravenous, ONCE fluconazole (DIFLUCAN) tablet 200 mg, 200 mg, Oral, QDAY metoprolol tartrate (LOPRESSOR) tablet 12.5 mg, 12.5 mg, Oral, BID [START ON 02/15/2020] ondansetron (ZOFRAN) tablet 16 mg, 16 mg, Oral, ONCE ondansetron (ZOFRAN) tablet 16 mg, 16 mg, Oral, ONCE sodium chloride PF 0.9% flush 5-10 mL, 5-10 mL, Flush, FLUSH TID tamsulosin (FLOMAX) capsule 0.4 mg, 0.4 mg, Oral, QDAY after breakfast Continuous Infusions: PRN and Respiratory Meds:acetaminophen Q6H PRN, albuterol sulfate Q4H PRN, altep lase PRN (Brand Recorder from Rx), alum/mag hydroxide/simeth Q6H PRN, benzonatate TID P RN, magnesium sulfate 4 g/50 mL PRN, oxymetazoline BID PRN, polyethylene glycol 3350 QDAY PRN, potassium chloride in water PRN (Brand Recorder from Rx) OR potassiu m chloride SR PRN (Brand Recorder from Rx), prochlorperazine Q6H PRN OR prochlorper azine Q6H PRN, senna/docusate QDAY PRN, simethicone Q6H PRN, sodium chloride 0.9 % TKO infusion PRN, sodium chloride 0.9% irrigation bottle PRN, sodium phosphate IVPB PRN (Brand Recorder from Rx), traMADoL Q6H PRN, traZODone QHS PRN Vital Signs: Last Filed Vital Signs: 24 Hour Range BP: 124/65 (02/13 075) Temp: 37.1 C (98.8 F) (02/13 075) Pulse: 92 (02/13 075) Respirations: 18 PER MINUTE (02/13 075) SpO2: 96 % (02/13 759) BP: (124-155)/(53-65) Temp: [36.7 C (98.1 F)-37.5 C (99.5 F)] Pulse: [77-95] Respirations: [18 PER MINUTE-22 PER MINUTE] SpO2: [87 %-98 %] Intensity Pain Scale (Self Report): 6 Verbal Pain Description: Moderate Pain Vitals: 02/12/20 0255 02/13/20 0335 02/14/20 0532 Weight: 122.7 kg (270 lb 8.1 oz) 121.8 kg (268 lb 8.3 oz) 120.8 kg (266 lb 5.1 o z) Intake/Output Summary: (Last 24 hours) Intake/Output Summary (Last 24 hours) at 02/14/2020 1051 Last data filed at 02/14/2020 0519 Gross per 24 hour Intake 906 ml Output 2000 ml Net -1094 ml Performance Status (Karnofsky): 70% Cares for self; unable to do normal activit y, or active work ECOG PS: 2 Physical Exam Vitals signs and nursing note reviewed. Constitutional: Appearance: Normal appearance. HENT: Mouth/Throat: Mouth: Mucous membranes are moist. Pharynx: No oropharyngeal exudate. Eyes: General: No scleral icterus. Cardiovascular: Rate and Rhythm: Normal rate. Pulses: Normal pulses. Heart sounds: Normal heart sounds. No murmur. Pulmonary: Effort: No respiratory distress. Breath sounds: No rales. Abdominal: General: There is distension. Tenderness: There is no abdominal tenderness. Musculoskeletal: Right lower leg: No edema. Left lower leg: No edema. Neurological: Mental Status: He is alert. Psychiatric: Mood and Affect: Mood normal. Lab Review: CBC w diff Lab Results Component Value Date/Time WBC 8.7 02/14/2020 03:16 AM RBC 2.18 (L) 02/14/2020 03:16 AM HGB 7.3 (L) 02/14/2020 03:16 AM HCT 21.1 (L) 02/14/2020 03:16 AM MCV 96.5 02/14/2020 03:16 AM MCH 33.5 02/14/2020 03:16 AM MCHC 34.7 02/14/2020 03:16 AM RDW 17.2 (H) 02/14/2020 03:16 AM PLTCT 31 (L) 02/14/2020 03:16 AM MPV 8.4 02/14/2020 03:16 AM Lab Results Component Value Date/Time ANC 1.83 02/14/2020 03:16 AM Comprehensive Metabolic Profile Lab Results Component Value Date/Time NA 137 02/14/2020 03:16 AM K 4.4 02/14/2020 03:16 AM CL 106 02/14/2020 03:16 AM CO2 23 02/14/2020 03:16 AM GAP 8 02/14/2020 03:16 AM BUN 39 (H) 02/14/2020 03:16 AM CR 1.80 (H) 02/14/2020 03:16 AM GLU 110 (H) 02/14/2020 03:16 AM Lab Results Component Value Date/Time CA 8.7 02/14/2020 03:16 AM PO4 4.7 (H) 02/14/2020 03:16 AM ALBUMIN 3.2 (L) 02/14/2020 03:16 AM TOTPROT 6.0 02/14/2020 03:16 AM ALKPHOS 193 (H) 02/14/2020 03:16 AM AST 26 02/14/2020 03:16 AM ALT 28 02/14/2020 03:16 AM TOTBILI 1.0 02/14/2020 03:16 AM GFR 37 (L) 02/14/2020 03:16 AM GFRAA 44 (L) 02/14/2020 03:16 AM Radiology Review: Pertinent radiology reviewed and discussed in assessment and plan. Unruly Ricks MD * Ashley Fernandez RN - 02/14/2020 5:54 AM CDT Shift: NEWS Score: 2238: 3 (O2 sat/HR) 0000: 4 ( O2 sat/HR) 0335: 1 ( O2 sat) Pain: No complain of pain this shift, Nutrition:Immunosuppressed diet GI/:LBM 02/12.Voiding adequate amts clear yellow urine. Pt nauseated last n ight. Compazine given. Activity:SBA. Walker ordered per pt request Family: No family present this shift. Last Shower: 02/11 New Events or Follow-up: COVID-19 negative Platelets 31 with am labs. 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 Cameron Abrams, [place] Chemotherapy plan: Dacogen 10 day, ? venetoclax based on ability to get however Rx coverage [facility], so unlikely to get cycle 1 Will need LP/IT chemo at some point Day 5 BM Bx performed at outside hospital prior to arrival, will request records. Pending our cytogenetics and 141 gene panel NGS testing. Heme: Hyperleukocytosis: 02/05: 3g hydrea 02/06: 2g hydrea 02/07: 2g hydrea BID x 4 doses ordered WBC 02/13/20: down to 11.8 Bleeding behind left TM: Symptoms started 02/04. Transfuse platelets to keep > 30k Transfusion 02/13/20: None Monitor CBC for transfusion needs, goal Hgb>7 and platelets >30K Monitor DIC panel: outside labs worrisome for DIC, transfuse cryo to keep fibrin ogen > 100 DVT Prophylaxis: SCDs, Chemical prophylaxis contraindicated due to bleeding FEN/Renal: Acute kidney injury: renally adjust medications especially in window of TLS. Bas nae creatinine 1, current is 1.5 02/13/20 Cr Cl is improved at 46.6 Hyperuricemia: give rasburicase 3mg IV x 1 based on outside lab Allopurinol loading then 300mg po daily until 02/13 Hyperphosphatemia due to TLS: improving, continue Phoslo for one more day Add'l Lasix 02/12 due to abdominal distention/coronary disease Immunocompromised diet ID: Febrile 38.8 on 02/08, afebrile since Cultures drawn, cefepime initiated Covid 19 Negative, low pre-test probability Drug Dates Cefepime 02/08-Current Continue prophylactic anti-infectives: fluconazole, acyclovir CV: Type 2 NSTEMI: echo Ef 60%, no significant abnormalities Chest pain: cardiology consulted, recs from 02.08: No further recommendations, no t a candidate for cardiac angiogram. Given that left ventricular function is no rmal they would be fine with him receiving an anthracycline should his clinical situation require it. 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 Some wheezing after exertion, plan albuterol nebs GI: Nausea: improving with anti-emetics Hx of bowel obstruction s/p colostomy and reanastomosis Monitor for GI distress and prn antiemetics available. Monitor liver function Rheum: inflammatory arthritis: On Humira 40mg sq every 2 weeks, next due 02/09/2020: hold : urinary urgency, incomplete emptying Start Flomax, patient previously on through a urologist. Given this anti-fungal will be fluconazole (especially since not currently neutropenic) Psych: Insomnia: improved with 10mg melatonin, schedule qhs Monitor and offer support as needed. Consider Onc/Psych Consult Code status: DNAR-Full Intervention Kimberley Male, Subjective: Jhony Chi is a 75 y.o. male. Patient with worsening cough, abdominal distention. Some pain under left lower r ibcage. Otherwise no LE edema, headache. Still having ear fullness L > R Review of Systems: Review of Systems Constitution: Negative for fever. Eyes: Negative for pain. Cardiovascular: Negative for leg swelling. Respiratory: Positive for cough and shortness of breath. Gastrointestinal: Positive for bloating. Objective: Medications: Scheduled Meds:acyclovir (ZOVIRAX) tablet 400 mg, 400 mg, Oral, BID allopurinoL (ZYLOPRIM) tablet 300 mg, 300 mg, Oral, QDAY calcium acetate(phosphat bind) (PHOSLO) capsule 1,334 mg, 1,334 mg, Oral, TID w/ meals cefepime (MAXIPIME) 2 g in sodium chloride 0.9% (NS) 100 mL IVPB (MB+), 2 g, Int ravenous, Q12H* decitabine (DACOGEN) 49.2 mg in sodium chloride 0.9% (NS) 109.84 mL IVPB, 20 mg/ m2 (Treatment Plan Recorded), Intravenous, ONCE fluconazole (DIFLUCAN) tablet 200 mg, 200 mg, Oral, QDAY metoprolol tartrate (LOPRESSOR) tablet 12.5 mg, 12.5 mg, Oral, BID ondansetron (ZOFRAN) tablet 16 mg, 16 mg, Oral, ONCE sodium chloride PF 0.9% flush 5-10 mL, 5-10 mL, Flush, FLUSH TID tamsulosin (FLOMAX) capsule 0.4 mg, 0.4 mg, Oral, QDAY after breakfast Continuous Infusions: PRN and Respiratory Meds:acetaminophen Q6H PRN, albuterol sulfate Q4H PRN, altep lase PRN (Brand Recorder from Rx), alum/mag hydroxide/simeth Q6H PRN, magnesium sulfate 4 g/50 mL PRN, oxymetazoline BID PRN, polyethylene glycol 3350 QDAY PRN, potass ium chloride in water PRN (Brand Recorder from Rx) OR potassium chloride SR PRN (Brand Recorder from Rx), prochlorperazine Q6H PRN OR prochlorperazine Q6H PRN, senna/ docusate QDAY PRN, simethicone Q6H PRN, sodium chloride 0.9 % TKO infusion PRN, sodium chloride 0.9% irrigation bottle PRN, sodium phosphate IVPB PRN (Brand Recorder from Rx), traMADoL Q6H PRN, traZODone QHS PRN Vital Signs: Last Filed Vital Signs: 24 Hour Range BP: 134/59 (02/12 626) Temp: 37 C (98.6 F) (02/12 626) Pulse: 92 (02/12 653) Respirations: 22 PER MINUTE (02/12 653) SpO2: 94 % (02/12 653) BP: (113-168)/(47-75) Temp: [36.7 C (98 F)-37.2 C (98.9 F)] Pulse: [74-103] Respirations: [18 PER MINUTE-22 PER MINUTE] SpO2: [90 %-98 %] Intensity Pain Scale (Self Report): 6 Verbal Pain Description: Moderate Pain Vitals: 02/11/20 0229 02/12/20 0255 02/13/20 0335 Weight: 121.3 kg (267 lb 6.7 oz) 122.7 kg (270 lb 8.1 oz) 121.8 kg (268 lb 8.3 o z) Intake/Output Summary: (Last 24 hours) Intake/Output Summary (Last 24 hours) at 02/13/2020 0706 Last data filed at 02/13/2020 0659 Gross per 24 hour Intake 1592.83 ml Output 1825 ml Net -232.17 ml Performance Status (Karnofsky): 70% Cares for self; unable to do normal activit y, or active work ECOG PS: 2 Physical Exam Vitals signs and nursing note reviewed. Constitutional: Appearance: Normal appearance. HENT: Mouth/Throat: Mouth: Mucous membranes are moist. Pharynx: No oropharyngeal exudate. Eyes: General: No scleral icterus. Cardiovascular: Rate and Rhythm: Normal rate. Pulses: Normal pulses. Heart sounds: Normal heart sounds. No murmur. Pulmonary: Effort: No respiratory distress. Breath sounds: No rales. Abdominal: General: There is distension. Tenderness: There is no abdominal tenderness. Musculoskeletal: Right lower leg: No edema. Left lower leg: No edema. Neurological: Mental Status: He is alert. Psychiatric: Mood and Affect: Mood normal. Lab Review: CBC w diff Lab Results Component Value Date/Time WBC 11.8 (H) 02/13/2020 04:40 AM RBC 2.45 (L) 02/13/2020 04:40 AM HGB 7.9 (L) 02/13/2020 04:40 AM HCT 23.7 (L) 02/13/2020 04:40 AM MCV 96.5 02/13/2020 04:40 AM MCH 32.3 02/13/2020 04:40 AM MCHC 33.5 02/13/2020 04:40 AM RDW 18.1 (H) 02/13/2020 04:40 AM PLTCT 28 (L) 02/13/2020 04:40 AM MPV 8.9 02/13/2020 04:40 AM Lab Results Component Value Date/Time ANC 1.42 (L) 02/13/2020 04:40 AM Comprehensive Metabolic Profile Lab Results Component Value Date/Time NA 139 02/13/2020 04:40 AM K 4.4 02/13/2020 04:40 AM CL 108 02/13/2020 04:40 AM CO2 22 02/13/2020 04:40 AM GAP 9 02/13/2020 04:40 AM BUN 48 (H) 02/13/2020 04:40 AM CR 1.79 (H) 02/13/2020 04:40 AM GLU 121 (H) 02/13/2020 04:40 AM Lab Results Component Value Date/Time CA 8.4 (L) 02/13/2020 04:40 AM PO4 4.8 (H) 02/13/2020 04:40 AM ALBUMIN 3.4 (L) 02/13/2020 04:40 AM TOTPROT 6.4 02/13/2020 04:40 AM ALKPHOS 179 (H) 02/13/2020 04:40 AM AST 27 02/13/2020 04:40 AM ALT 28 02/13/2020 04:40 AM TOTBILI 1.0 02/13/2020 04:40 AM GFR 37 (L) 02/13/2020 04:40 AM GFRAA 45 (L) 02/13/2020 04:40 AM Radiology Review: Pertinent radiology reviewed and discussed in assessment and plan. Kimberley Stark MD Pager [phone] * Rivka Scott RN - 02/13/2020 4:02 AM CDT 02/13/20 0335 Vitals BP (!) 168/70 Mean NBP (Calculated) 103 MM HG BP Source Arm, Left Lower BP Patient Position Head of bed (Comment degree) 0340: Dr. Sargent notified of pt's BP 168/70. Pt up to bathroom prior to BP. No new orders at this time. Will CTM. * Rivka Scott RN - 02/12/2020 9:29 PM CDT Shift: NEWS Score: 1947: 2 (O2 sat) 2327: 4 (RR, O2 sat) 0335: 4 (RR, O2 sat) Pain: c/o pain in left shoulder, described as pressure, rated 6/10 worse w/ move ment, pt desires no interventions for pain Nutrition: Immunosuppressed diet GI/: + constipation. LBM 02/12. Voiding adequate amts clear yellow urine. Activity: SBA. Walker ordered per pt request Family: chief electrician talked w/ pt's girlfriend this evening. Last Shower: 02/11 New Events or Follow-up: Day 4 Dacogen administered 02/11. COVID-19 negative Platelets 28 w/ am labs. Transfusing 1u platelets. * Chela Peng RN - 02/12/2020 6:51 PM CDT Shift: NEWS Score:0 1(sat) 1(sat) Pain:no c/o pain. Nutrition: appetite good. Ate most of meals GI/:compazine administered x2 for nausea, zofran x1. + constipation. LBM . Senna s 2 tabs given. Voiding adequate amts clear yellow urine. Activity: ambulated in room x2, Up to chair most of day Family: talked with family on phone Last Shower:today New Events or Follow-up:Day 4 Dacogen administered today. * Chela Peng RN - 02/12/2020 4:54 PM CDT I have reviewed & agree with documentation, assessment, notes by CHINA Tan unless otherwise noted. * Chela Peng RN - 02/12/2020 1:58 PM CDT ..CHEMO NOTE Verified chemo consent signed and in chart. Verified initiate chemo order in O2 Blood return positive via: RDL PICC purple lumen BSA and dose double checked (agree with orders as written) with: yes with Candie le RN Labs/applicable tests checked: CBC and Comprehensive Metabolic Panel (CMP) Chemo regime: C1D4 decitabine (DACOGEN) 49.2 mg in sodium chloride 0.9% (NS) 109.84 mL IVPB 49.2 mg (20 mg/m2 2.46 m2 Treatment plan recorded BSA), Intravenous, 109.84 mL, Administer over 1 Hours, ONCE, 1 dose, Estefani 02/12/20 at 1400 Rate verified and armband double checkwith second RN: yes with Candie Jacobsen RN Patient education offered and stated understanding. Denies questions at this gonzález e. * Marialuisa Beatty RD - 02/12/2020 1:22 PM CDT CLINICAL NUTRITION Clinical Nutrition Initial Assessment Name: Jhony Chi : 1945 Age: [age] y.o. Admission Date: 02/06/2020 LOS: 6 days Recommendation: Continue immunosuppressed diet. Encourage PO intake at meals TID. Provide high-protein snacks/supplements between meals PRN. Comments: 75 y/o M with H CAD, HLD, A-fib, newly diagnosed AML now day 10 Dacogen. Scree eliana not at acute nutritional risk upon admit. Currently on COVID rule out precau tions. Spoke with pt over the phone. Reports appetite and intake are improving a s were slightly decreased upon start of treatment. 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 Documented intake shows 80-90% x meals yesterday, and ate majority of breakfast this morning consisting of egg breakfast sandwich. S ays he is waiting on lunch to come, ordered macaroni and cheese with sides. RN r eport pt eating well, and has been drinking protein shakes PRN. Reviewed oral nu trition supplement options, immunosuppressed guidelines, written and verbal educ ation provided. Pt c/o mild dry mouth but drinking plenty of fluids and using sa line rinse. Constipation noted with LBM 02/08, bowel meds on board. Encouraged pt to get up and move as possible (with supervision while on fall precautions). No additional complaints. Discussed importance of high-protein and overall adequate intake. Not currently at acute nutritional risk. Potential for nutrition decline noted due to clinical course. Will continue to monitor per protocol. Nutrition Assessment of Patient: Admit Weight: 119.4 kg; Desired Weight: 83.3 kg BMI (Calculated): 36.68; BMI Categories Adult: Obesity Class II: 35-39.9; Pertinent Allergies/Intolerances: none noted Pertinent Labs: Reviewed; Pertinent Meds: Reviewed; Oral Diet Order: Immunosuppressed; Current Oral Intake: Marginally Adequate;Improving Estimated Calorie Needs: 2500 (30kcal/kg desired wt) Estimated Protein Needs: 100-125 (1.2-1.5g/kg desired wt) Malnutrition Assessment: Does not meet criteria; Nutrition Focused Physical Assessment: Edema: Yes; Severity: Mild; Location: Lower extremities Pressure Injury: none noted Marialuisa Beatty RD, LD Clinical Dietitian [phone] Office: [phone] * Male, Kimberley Magana MD - 02/12/2020 7:03 AM CDT Acute Leukemia Service Progress Note Today's Date: 02/12/2020 Name: Jhony Chi Admission Date: 02/06/2020 LOS: LOS: 6 days Assessment/Plan: Active Problems: Paroxysmal A-fib (HCC) CAD (coronary artery disease) Inflammatory arthritis Hyperlipidemia 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 Cameron Abrams, [place] Chemotherapy plan: Dacogen 10 day, ? venetoclax based on ability to get however Rx coverage through [facility], so unlikely to get cycle 1 Will need LP/IT chemo at some point Day 4 BM Bx performed at outside hospital prior to arrival, will request records. Pending our cytogenetics and 141 gene panel NGS testing. Heme: Hyperleukocytosis: 02/05: 3g hydrea 02/06: 2g hydrea 02/07: 2g hydrea BID x 4 doses ordered WBC 02/12/20: down to 20.9 Bleeding behind left TM: Symptoms started 02/04. Transfuse platelets to keep > 30k Transfusion 02/12/20: PRBC, platelets afternoon 02/10. Give lasix post blood nj sfusion Monitor CBC for transfusion needs, goal Hgb>7 and platelets >30K Monitor DIC panel: outside labs worrisome for DIC, transfuse cryo to keep fibrin ogen > 100 DVT Prophylaxis: SCDs, Chemical prophylaxis contraindicated due to bleeding FEN/Renal: Acute kidney injury: renally adjust medications especially in window of TLS. Bas nae creatinine 1, current is 1.5 02/12/20 Cr Cl is improved at 39.1 Hyperuricemia: give rasburicase 3mg IV x 1 based on outside lab Allopurinol loading then 300mg po daily Hyperphosphatemia due to TLS: improving, continue Phoslo Lasix required while on IVF, Lasix 40mg IV after blood transfusion 02/11 Immunocompromised diet ID: Febrile 38.8 on 02/08, afebrile since Cultures drawn, cefepime initiated Covid 19 pending Drug Dates Cefepime 02/08-Current Continue prophylactic anti-infectives: fluconazole, acyclovir CV: Type 2 NSTEMI: echo Ef 60%, no significant abnormalities Chest pain: cardiology consulted, recs from 02.08: No further recommendations, no t a candidate for cardiac angiogram. Given that left ventricular function is no rmal they would be fine with him receiving an anthracycline should his clinical situation require it. 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 Some wheezing after exertion, plan albuterol nebs GI: Nausea: improving with anti-emetics Hx of bowel obstruction s/p colostomy and reanastomosis Monitor for GI distress and prn antiemetics available. Monitor liver function Rheum: inflammatory arthritis: On Humira 40mg sq every 2 weeks, next due 02/09/2020: hold : urinary urgency, incomplete emptying Start Flomax, patient previously on through a urologist. Given this anti-fungal will be fluconazole (especially since not currently neutropenic) Psych: Insomnia: improved with 10mg melatonin, schedule qhs Monitor and offer support as needed. Consider Onc/Psych Consult Code status: DNAR-Full Intervention Kimberley Male, Subjective: Jhony Chi is a 75 y.o. male. Some SOB with exertion, denies chest pressure pain. + constipation so trying graciela alax and senna. Patient states he feels he is getting bored Review of Systems: Review of Systems Constitution: Negative for fever. Respiratory: Positive for shortness of breath. Gastrointestinal: Positive for constipation. Objective: Medications: Scheduled Meds:acyclovir (ZOVIRAX) tablet 400 mg, 400 mg, Oral, BID allopurinoL (ZYLOPRIM) tablet 300 mg, 300 mg, Oral, QDAY calcium acetate(phosphat bind) (PHOSLO) capsule 1,334 mg, 1,334 mg, Oral, TID w/ meals cefepime (MAXIPIME) 2 g in sodium chloride 0.9% (NS) 100 mL IVPB (MB+), 2 g, Int ravenous, Q12H* decitabine (DACOGEN) 49.2 mg in sodium chloride 0.9% (NS) 109.84 mL IVPB, 20 mg/ m2 (Treatment Plan Recorded), Intravenous, ONCE fluconazole (DIFLUCAN) tablet 200 mg, 200 mg, Oral, QDAY metoprolol tartrate (LOPRESSOR) tablet 12.5 mg, 12.5 mg, Oral, BID ondansetron (ZOFRAN) tablet 16 mg, 16 mg, Oral, ONCE sodium chloride PF 0.9% flush 5-10 mL, 5-10 mL, Flush, FLUSH TID tamsulosin (FLOMAX) capsule 0.4 mg, 0.4 mg, Oral, QDAY after breakfast Continuous Infusions: PRN and Respiratory Meds:acetaminophen Q6H PRN, alteplase PRN (Brand Recorder from Rx), alum/mag hydroxide/simeth Q6H PRN, magnesium sulfate 4 g/50 mL PRN, oxymetazoli ne BID PRN, polyethylene glycol 3350 QDAY PRN, potassium chloride in water PRN ( Brand Recorder from Rx) OR potassium chloride SR PRN (Brand Recorder from Rx), prochlorper azine Q6H PRN OR prochlorperazine Q6H PRN, senna/docusate QDAY PRN, simethic one Q6H PRN, sodium chloride 0.9 % TKO infusion PRN, sodium chloride 0.9% irriga tion bottle PRN, sodium phosphate IVPB PRN (Brand Recorder from Rx), traMADoL Q6H PRN, traZODone QHS PRN Vital Signs: Last Filed Vital Signs: 24 Hour Range BP: 137/60 (02/11 650) Temp: 36.6 C (97.9 F) (02/11 0650) Pulse: 84 (02/11 0650) Respirations: 18 PER MINUTE (02/11 0650) SpO2: 97 % (02/11 650) BP: (119-150)/(50-70) Temp: [36.6 C (97.9 F)-37.2 C (98.9 F)] Pulse: [77-88] Respirations: [18 PER MINUTE-22 PER MINUTE] SpO2: [91 %-98 %] Verbal Pain Description: Moderate Pain Vitals: 02/10/20 0513 02/11/20 0229 02/12/20 0255 Weight: 120.6 kg (265 lb 14 oz) 121.3 kg (267 lb 6.7 oz) 122.7 kg (270 lb 8.1 oz ) Intake/Output Summary: (Last 24 hours) Intake/Output Summary (Last 24 hours) at 02/12/2020 0703 Last data filed at 02/12/2020 0650 Gross per 24 hour Intake 2727.42 ml Output 1600 ml Net 1127.42 ml Performance Status (Karnofsky): 70% Cares for self; unable to do normal activit y, or active work ECOG PS: 2 Physical Exam Vitals signs and nursing note reviewed. Constitutional: Appearance: Normal appearance. HENT: Mouth/Throat: Mouth: Mucous membranes are moist. Pharynx: No oropharyngeal exudate. Eyes: General: No scleral icterus. Cardiovascular: Rate and Rhythm: Normal rate. Pulses: Normal pulses. Heart sounds: Normal heart sounds. No murmur. Pulmonary: Effort: No respiratory distress. Breath sounds: No rales. Abdominal: General: There is distension. Tenderness: There is no abdominal tenderness. Musculoskeletal: Right lower leg: No edema. Left lower leg: No edema. Neurological: Mental Status: He is alert. Psychiatric: Mood and Affect: Mood normal. Lab Review: CBC w diff Lab Results Component Value Date/Time WBC 20.9 (H) 02/12/2020 04:00 AM RBC 2.07 (L) 02/12/2020 04:00 AM HGB 6.8 (L) 02/12/2020 04:00 AM HCT 20.5 (L) 02/12/2020 04:00 AM MCV 98.7 02/12/2020 04:00 AM MCH 32.9 02/12/2020 04:00 AM MCHC 33.3 02/12/2020 04:00 AM RDW 17.8 (H) 02/12/2020 04:00 AM PLTCT 37 (L) 02/12/2020 04:00 AM MPV 8.8 02/12/2020 04:00 AM Lab Results Component Value Date/Time ANC 2.30 02/12/2020 04:00 AM Comprehensive Metabolic Profile Lab Results Component Value Date/Time NA 138 02/12/2020 04:00 AM K 4.3 02/12/2020 04:00 AM CL 108 02/12/2020 04:00 AM CO2 23 02/12/2020 04:00 AM GAP 7 02/12/2020 04:00 AM BUN 55 (H) 02/12/2020 04:00 AM CR 2.14 (H) 02/12/2020 04:00 AM GLU 115 (H) 02/12/2020 04:00 AM Lab Results Component Value Date/Time CA 8.0 (L) 02/12/2020 04:00 AM PO4 6.3 (H) 02/12/2020 04:00 AM ALBUMIN 3.2 (L) 02/12/2020 04:00 AM TOTPROT 5.9 (L) 02/12/2020 04:00 AM ALKPHOS 161 (H) 02/12/2020 04:00 AM AST 24 02/12/2020 04:00 AM ALT 24 02/12/2020 04:00 AM TOTBILI 0.9 02/12/2020 04:00 AM GFR 30 (L) 02/12/2020 04:00 AM GFRAA 36 (L) 02/12/2020 04:00 AM Radiology Review: Pertinent radiology reviewed and discussed in assessment and plan. Kimberley Stark MD Pager [phone] * Teresa Alcantara, RN - 02/12/2020 2:00 AM CDT Shift: [id number] NEWS Score: 2: 1 (SpO2) 2157: 2 (SpO2) 2228: 2 (SpO2) 2246: 2 (SpO2) 2346: 2 (SpO2) 0050: 2 (SpO2) 0134: 3 (SpO2) 0255: 3 (SpO2, Supplemental Oxygen) 0618: 4 (SpO2, Supplemental Oxygen) 0650: 2 (Supplemental Oxygen) Pain: Patient reported no pain during this shift. Nutrition: Immunosuppressed diet. GI/: Last BM 02/08. Patient having adequate urine output, urine yellow and urmila r. Patient did complain of some nausea and was given PRN compazine x1. Activity: Standby assist. Family: No family present. Last Shower: 02/11/2020 New Events or Follow-up: Patient received platelets this shift for afternoon platelet count of 29 - trans fusion tolerated well. Morning replacements needed: Hgb: 6.8 - being replaced. * Chela Peng RN - 02/11/2020 6:51 PM CDT Shift: NEWS Score:3(sat, O2) 2(RR) 2(sat) Pain: no c/o pain Nutrition: appetite good. Ate most of meals GI/: + constipation. LBM 02/08(prune juice given). Discussed taking senna or miralax tonight if no BM. C/o nausea x1, Compazine administered x1.Voiding emilie quate amts clear yellow urine(voids small amts.) Activity: ambulated in room x3, Up to chair x2 for meals Family: talked with girlfriend on phone Last Shower:today New Events or Follow-up:dacogen Day 3 administered today * Chela Peng RN - 02/11/2020 2:20 PM CDT .CHEMO NOTE Verified chemo consent signed and in chart. YES Verified initiate chemo order in O2. YES Blood return positive via: Right DL Port BSA and dose double checked (agree with orders as written) with: Juana Avalos Chemotherapy Certified RN Labs/applicable tests checked: Yes. Okay to proceed, per Dr. Stark with creat 2.3 2 & phos 7.3 Chemo regimen: Cycle 1, Day 3 Decitabine (DACOGEN) 49.2 mg in sodium chloride 0.9% (NS) 109.84 mL IVPB Rate verified and armband double checkwith second RN: YES Patient education offered and stated understanding. Denies questions at this gonzález e. 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 Cameron Abrams [place] Chemotherapy plan: Dacogen 10 day, ? venetoclax based on ability to get however Rx coverage [facility], so unlikely to get cycle 1 Day 3 BM Bx performed at outside hospital prior to arrival, will request records. Pending our cytogenetics and 141 gene panel NGS testing. Heme: Hyperleukocytosis: 02/05: 3g hydrea 02/06: 2g hydrea 02/07: 2g hydrea BID x 4 doses ordered WBC 02/11/20: down to 31k Bleeding behind left TM: Symptoms started 02/04. Transfuse platelets to keep > 30k Transfusion 02/11/20: None, transfused platelets last evening Monitor CBC for transfusion needs, goal Hgb>7 and platelets >30K Monitor DIC panel: outside labs worrisome for DIC, transfuse cryo to keep fibrin ogen > 100 DVT Prophylaxis: SCDs, Chemical prophylaxis contraindicated due to bleeding FEN/Renal: Acute renal insufficiency: renally adjust medications especially in window of TL S. Baseline creatinine 1, current is 1.5, 02/11/20 Cr Cl is stable at 36 Hyperuricemia: give rasburicase 3mg IV x 1 based on outside lab Replace electrolytes per standard protocol unless signs of TLS or MURTAZA Allopurinol loading then 300mg po daily IVF d/c with dyspnea/chest pressure. Lasix 40mg IV x 1, 3kg weight gain since ad , achieved -2.2L More dyspneic, lasix iv 02/08 again, but creatinine is worsening so hold further diuresis as LE edema resolved. Immunocompromised diet ID: Febrile 38.8 on 02/08, afebrile since Cultures drawn, cefepime initiated and respiratory viral panel including COVID 1 9 rule out therefore placed in droplet isolation. Drug Dates Cefepime 02/08-Current Start prophylactic anti-infectives: Ceftin (due to qtc), fluconazole, acyclovir CV: Type 2 NSTEMI: echo Ef 60%, no significant abnormalities Chest pain: cardiology consulted, recs from 02.08: No further recommendations, no t a candidate for cardiac angiogram. Given that left ventricular function is no rmal they would be fine with him receiving an anthracycline should his clinical situation require it. 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 Monitor liver function Rheum: inflammatory arthritis: On Humira 40mg sq every 2 weeks, next due 02/09/2020: hold : urinary urgency, incomplete emptying Start Flomax, patient previously on through a urologist. Given this anti-fungal will be fluconazole (especially since not currently neutropenic) Psych: Insomnia: improved with 10mg melatonin, schedule qhs Monitor and offer support as needed. Consider Onc/Psych Consult Code status: DNAR-Full Intervention Kimberley Stark, Subjective: Jhony Chi is a 75 y.o. male. Some SOB with exertion, feeling fatigued. Nausea this AM relieved with zofran, able to eat full lunch. Review of Systems: Review of Systems Constitution: Negative for fever. Cardiovascular: Negative for leg swelling. Respiratory: Positive for shortness of breath. Objective: Medications: Scheduled Meds:acyclovir (ZOVIRAX) tablet 400 mg, 400 mg, Oral, BID allopurinoL (ZYLOPRIM) tablet 300 mg, 300 mg, Oral, QDAY calcium acetate(phosphat bind) (PHOSLO) capsule 1,334 mg, 1,334 mg, Oral, TID w/ meals cefepime (MAXIPIME) 2 g in sodium chloride 0.9% (NS) 100 mL IVPB (MB+), 2 g, Int ravenous, Q12H* decitabine (DACOGEN) 49.2 mg in sodium chloride 0.9% (NS) 109.84 mL IVPB, 20 mg/ m2 (Treatment Plan Recorded), Intravenous, ONCE fluconazole (DIFLUCAN) tablet 200 mg, 200 mg, Oral, QDAY metoprolol tartrate (LOPRESSOR) tablet 12.5 mg, 12.5 mg, Oral, BID ondansetron (ZOFRAN) tablet 16 mg, 16 mg, Oral, ONCE sodium chloride PF 0.9% flush 5-10 mL, 5-10 mL, Flush, FLUSH TID tamsulosin (FLOMAX) capsule 0.4 mg, 0.4 mg, Oral, QDAY after breakfast Continuous Infusions: PRN and Respiratory Meds:acetaminophen Q6H PRN, alteplase PRN (Brand Recorder from Rx), alum/mag hydroxide/simeth Q6H PRN, magnesium sulfate 4 g/50 mL PRN, oxymetazoli ne BID PRN, polyethylene glycol 3350 QDAY PRN, potassium chloride in water PRN ( Brand Recorder from Rx) OR potassium chloride SR PRN (Brand Recorder from Rx), prochlorper azine Q6H PRN OR prochlorperazine Q6H PRN, senna/docusate QDAY PRN, simethic one Q6H PRN, sodium chloride 0.9 % TKO infusion PRN, sodium chloride 0.9% irriga tion bottle PRN, sodium phosphate IVPB PRN (Brand Recorder from Rx), traMADoL Q6H PRN, traZODone QHS PRN Vital Signs: Last Filed Vital Signs: 24 Hour Range BP: 110/83 (02/10 229) Temp: 36.8 C (98.2 F) (02/10 229) Pulse: 85 (02/10 229) Respirations: 18 PER MINUTE (02/10 229) SpO2: 94 % (03/25 0229) BP: (110-152)/(45-83) Temp: [36.8 C (98.2 F)-37.9 C (100.3 F)] Pulse: [81-110] Respirations: [18 PER MINUTE-20 PER MINUTE] SpO2: [89 %-96 %] Verbal Pain Description: Moderate Pain Vitals: 02/09/20 1122 02/10/20 0513 02/11/20 0229 Weight: 118.8 kg (262 lb) 120.6 kg (265 lb 14 oz) 121.3 kg (267 lb 6.7 oz) Intake/Output Summary: (Last 24 hours) Intake/Output Summary (Last 24 hours) at 02/11/2020 0713 Last data filed at 02/11/2020 0533 Gross per 24 hour Intake 3703.34 ml Output 1275 ml Net 2428.34 ml Performance Status (Karnofsky): 70% Cares for self; unable to do normal activit y, or active work ECOG PS: 2 Physical Exam Vitals signs and nursing note reviewed. Constitutional: Appearance: Normal appearance. HENT: Mouth/Throat: Mouth: Mucous membranes are moist. Pharynx: No oropharyngeal exudate. Eyes: General: No scleral icterus. Cardiovascular: Rate and Rhythm: Normal rate. Pulses: Normal pulses. Heart sounds: Normal heart sounds. No murmur. Pulmonary: Effort: No respiratory distress. Breath sounds: No rales. Abdominal: General: There is distension. Tenderness: There is no abdominal tenderness. Musculoskeletal: Right lower leg: No edema. Left lower leg: No edema. Neurological: Mental Status: He is alert. Psychiatric: Mood and Affect: Mood normal. Lab Review: CBC w diff Lab Results Component Value Date/Time WBC 31.0 (H) 02/11/2020 02:45 AM RBC 2.30 (L) 02/11/2020 02:45 AM HGB 7.3 (L) 02/11/2020 02:45 AM HCT 22.5 (L) 02/11/2020 02:45 AM MCV 98.0 02/11/2020 02:45 AM MCH 31.9 02/11/2020 02:45 AM MCHC 32.6 02/11/2020 02:45 AM RDW 17.9 (H) 02/11/2020 02:45 AM PLTCT 37 (L) 02/11/2020 02:45 AM MPV 9.0 02/11/2020 02:45 AM Lab Results Component Value Date/Time ANC 6.51 02/11/2020 02:45 AM Comprehensive Metabolic Profile Lab Results Component Value Date/Time NA 139 02/11/2020 02:45 AM K 4.6 02/11/2020 02:45 AM CL 108 02/11/2020 02:45 AM CO2 21 02/11/2020 02:45 AM GAP 10 02/11/2020 02:45 AM BUN 59 (H) 02/11/2020 02:45 AM CR 2.32 (H) 02/11/2020 02:45 AM GLU 107 (H) 02/11/2020 02:45 AM Lab Results Component Value Date/Time CA 8.1 (L) 02/11/2020 02:45 AM PO4 7.3 (H) 02/11/2020 02:45 AM ALBUMIN 3.2 (L) 02/11/2020 02:45 AM TOTPROT 6.0 02/11/2020 02:45 AM ALKPHOS 135 (H) 02/11/2020 02:45 AM AST 28 02/11/2020 02:45 AM ALT 24 02/11/2020 02:45 AM TOTBILI 1.1 02/11/2020 02:45 AM GFR 27 (L) 02/11/2020 02:45 AM GFRAA 33 (L) 02/11/2020 02:45 AM Radiology Review: Pertinent radiology reviewed and discussed in assessment and plan. Kimberley Stark MD Pager [phone] * Joana Rivers, [place] - 02/11/2020 5:32 AM CDT Shift: [id number] NEWS Score:3,2,3 Pain: denies pain Nutrition: immunosuppressed diet poor appetite. GI/: last BM 02/08, adequate urine output. No nausea this shift. Activity: ambulates with stand by assist. New Events or Follow-up: Received 1 unit of prbcs overnight for hgb of 6.8, temp 100.3 prior to starting blood ( Dr. Sargent notified). Tylenol given x1 prior to starting blood. No replacements needed this am. * Flavia Breen RN - 02/10/2020 1:59 PM CDT CHEMO NOTE Verified chemo consent signed and in chart. Verified initiate chemo order in O2 Blood return positive via: PICC right DL. purple lumen BSA and dose double checked (agree with orders as written) with: yes Tamica Jimenez RN Labs/applicable tests checked: CBC and Comprehensive Metabolic Panel (CMP) Chemo regime: C1 D2 venetoclax and decitabine decitabine (DACOGEN) 49.2 mg in sodium chloride 0.9% (NS) 109.84 mL IVPB [[id number]] Ordered Dose: 20 mg/m2 2.46 m2 (Treatment Plan Recorded) Route: Intravenous F requency: ONCE @ 110 mL/hr over 1 Hours Rate verified and armband double checkwith second RN: yes Patient education offered and stated understanding. Denies questions at this gonzález e. 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 Cameron Abrams Kensal Chemotherapy plan: Dacogen 10 day, ? venetoclax based on ability to get however Rx coverage through [facility], so unlikely to get cycle 1 Day 2 BM Bx performed at outside hospital prior to arrival, will request records. Pending our cytogenetics and 141 gene panel NGS testing. Heme: Hyperleukocytosis: 02/05: 3g hydrea 02/06: 2g hydrea 02/07: 2g hydrea BID x 4 doses ordered WBC 02/10/20: down to 63.1 Bleeding behind left TM: Symptoms started 02/04. Transfuse platelets to keep > 30k Transfusion 02/10/20: None Monitor CBC for transfusion needs, goal Hgb>7 and platelets >30K Monitor DIC panel: outside labs worrisome for DIC, transfuse cryo to keep fibrin ogen > 100 DVT Prophylaxis: SCDs, Chemical prophylaxis contraindicated due to bleeding FEN/Renal: Acute renal insufficiency: renally adjust medications especially in window of TL S. Baseline creatinine 1, current is 1.5, 02/10/20 Cr Cl is 36 Hyperuricemia: give rasburicase 3mg IV x 1 based on outside lab Replace electrolytes per standard protocol unless signs of TLS or MURTAZA Allopurinol loading then 300mg po daily IVF d/c with dyspnea/chest pressure. Lasix 40mg IV x 1, 3kg weight gain since , achieved -2.2L More dyspneic, lasix iv 02/08 again, but creatinine is worsening so hold further diuresis given symptom improvement 02/09 Immunocompromised diet ID: Febrile 38.8 on 02/08 Cultures drawn, cefepime initiated and respiratory viral panel including COVID 1 9 rule out therefore placed in droplet isolation. Drug Dates Cefepime 02/08-Current Start prophylactic anti-infectives: Ceftin (due to qtc), fluconazole, acyclovir CV: Type 2 NSTEMI: echo Ef 60%, no significant abnormalities Chest pain: cardiology consulted, recs from 02.08: No further recommendations, no t a candidate for cardiac angiogram. Given that left ventricular function is no rmal they would be fine with him receiving an anthracycline should his clinical situation require it. 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 Monitor liver function Rheum: inflammatory arthritis: On Humira 40mg sq every 2 weeks, next due 02/09/2020: hold : urinary urgency, incomplete emptying Start Flomax, patient previously on through a urologist. Interactions with posa, so change to fluconazole Psych: Insomnia: improved with 10mg melatonin, schedule qhs Monitor and offer support as needed. Consider Onc/Psych Consult Code status: DNAR-Full Intervention Kimberley Male, MD Subjective: Jhony Chi is a 75 y.o. male. Patient notes that he is feeling much better today. He has decreased shortness of breath. He is sitting up in a chair. He denies any new symptoms related to initiation of Dacogen yesterday. We ayers d and talked to his Susana and her daughter on the phone. We described his current chemotherapy and plans. Questions were answered and directed them to [facility] for additional resources. Patient was febrile overnight. He denies new or different respiratory symptoms and states that his breathing is actually improved. Review of Systems: Review of Systems Constitution: Positive for fever. Respiratory: Negative for shortness of breath. Genitourinary: Positive for incomplete emptying. Objective: Medications: Scheduled Meds:acyclovir (ZOVIRAX) tablet 400 mg, 400 mg, Oral, BID allopurinoL (ZYLOPRIM) tablet 300 mg, 300 mg, Oral, QDAY cefepime (MAXIPIME) 2 g in sodium chloride 0.9% (NS) 100 mL IVPB (MB+), 2 g, Int ravenous, Q12H* decitabine (DACOGEN) 49.2 mg in sodium chloride 0.9% (NS) 109.84 mL IVPB, 20 mg/ m2 (Treatment Plan Recorded), Intravenous, ONCE fluconazole (DIFLUCAN) tablet 200 mg, 200 mg, Oral, QDAY metoprolol tartrate (LOPRESSOR) tablet 12.5 mg, 12.5 mg, Oral, BID ondansetron (ZOFRAN) tablet 16 mg, 16 mg, Oral, ONCE sodium chloride PF 0.9% flush 5-10 mL, 5-10 mL, Flush, FLUSH TID tamsulosin (FLOMAX) capsule 0.4 mg, 0.4 mg, Oral, QDAY after breakfast Continuous Infusions: PRN and Respiratory Meds:acetaminophen Q6H PRN, alteplase PRN (Brand Recorder from Rx), alum/mag hydroxide/simeth Q6H PRN, magnesium sulfate 4 g/50 mL PRN, oxymetazoli ne BID PRN, polyethylene glycol 3350 QDAY PRN, potassium chloride in water PRN ( Brand Recorder from Rx) OR potassium chloride SR PRN (Brand Recorder from Rx), prochlorper azine Q6H PRN OR prochlorperazine Q6H PRN, senna/docusate QDAY PRN, simethic one Q6H PRN, sodium chloride 0.9 % TKO infusion PRN, sodium chloride 0.9% irriga tion bottle PRN, sodium phosphate IVPB PRN (Brand Recorder from Rx), traMADoL Q6H PRN, traZODone QHS PRN Vital Signs: Last Filed Vital Signs: 24 Hour Range BP: 131/55 (02/09 241) Temp: 37.4 C (99.4 F) (02/09 241) Pulse: 92 (02/09 241) Respirations: 18 PER MINUTE (02/09 241) SpO2: 92 % (02/09 241) Height: 182.9 cm (72") (02/08 1122) BP: (96-143)/(47-56) Temp: [37.1 C (98.7 F)-38.8 C (101.9 F)] Pulse: [87-103] Respirations: [18 PER MINUTE-20 PER MINUTE] SpO2: [92 %-96 %] Verbal Pain Description: Moderate Pain Vitals: 02/09/20 0209 02/09/20 1122 02/10/20 0513 Weight: 119.2 kg (262 lb 12.6 oz) 118.8 kg (262 lb) 120.6 kg (265 lb 14 oz) Intake/Output Summary: (Last 24 hours) Intake/Output Summary (Last 24 hours) at 02/10/2020 0716 Last data filed at 02/10/2020 0620 Gross per 24 hour Intake 2377 ml Output 825 ml Net 1552 ml Performance Status (Karnofsky): 70% Cares for self; unable to do normal activit y, or active work ECOG PS: 2 Physical Exam Vitals signs and nursing note reviewed. Constitutional: Appearance: Normal appearance. HENT: Mouth/Throat: Mouth: Mucous membranes are moist. Pharynx: No oropharyngeal exudate. Eyes: General: No scleral icterus. Cardiovascular: Rate and Rhythm: Normal rate. Pulses: Normal pulses. Heart sounds: Normal heart sounds. No murmur. Pulmonary: Effort: No respiratory distress. Breath sounds: No rales. Abdominal: General: There is distension. Tenderness: There is no abdominal tenderness. Musculoskeletal: Right lower leg: No edema. Left lower leg: No edema. Neurological: Mental Status: He is alert. Psychiatric: Mood and Affect: Mood normal. Lab Review: CBC w diff Lab Results Component Value Date/Time WBC 63.1 (HH) 02/10/2020 02:40 AM RBC 2.32 (L) 02/10/2020 02:40 AM HGB 7.4 (L) 02/10/2020 02:40 AM HCT 23.3 (L) 02/10/2020 02:40 AM MCV 100.6 (H) 02/10/2020 02:40 AM MCH 32.0 02/10/2020 02:40 AM MCHC 31.8 (L) 02/10/2020 02:40 AM RDW 17.9 (H) 02/10/2020 02:40 AM PLTCT 40 (L) 02/10/2020 02:40 AM MPV 8.3 02/10/2020 02:40 AM Lab Results Component Value Date/Time ANC 8.83 (H) 02/10/2020 02:40 AM Comprehensive Metabolic Profile Lab Results Component Value Date/Time NA 139 02/10/2020 02:40 AM K 4.6 02/10/2020 02:40 AM CL 107 02/10/2020 02:40 AM CO2 22 02/10/2020 02:40 AM GAP 10 02/10/2020 02:40 AM BUN 47 (H) 02/10/2020 02:40 AM CR 2.26 (H) 02/10/2020 02:40 AM GLU 126 (H) 02/10/2020 02:40 AM Lab Results Component Value Date/Time CA 8.3 (L) 02/10/2020 02:40 AM PO4 7.7 (H) 02/10/2020 02:40 AM ALBUMIN 3.4 (L) 02/10/2020 02:40 AM TOTPROT 6.4 02/10/2020 02:40 AM ALKPHOS 145 (H) 02/10/2020 02:40 AM AST 38 02/10/2020 02:40 AM ALT 30 02/10/2020 02:40 AM TOTBILI 1.1 02/10/2020 02:40 AM GFR 28 (L) 02/10/2020 02:40 AM GFRAA 34 (L) 02/10/2020 02:40 AM Radiology Review: Pertinent radiology reviewed and discussed in assessment and plan. Kimberley Stark MD Pager [phone] * Ross Ferrera MD - 02/09/2020 11:08 PM CDT Cardiology staff note 75-year-old gentleman with known coronary disease transferred to for treatmen t of acute myelocytic leukemia He presents with several weeks of shortness of breath which mimics previous card iac symptoms however is anemic And with bypass surgery in 2018 he has had no symptoms since On admission he was found to have a mildly elevated troponin Echocardiogram today shows normal left ventricular size and function, no wall mo tion abnormalities, mild aortic stenosis, and normal right heart. Impression 1. Elevated troponin is nonspecific. Likely related to his acute illness and C KD -Do not believe that he is suffered an NSTEMI or ischemic event 2. Coronary disease with previous bypass surgery 3. Normal left ventricular function -Mild aortic stenosis 4. Acute myelocytic leukemia Recommendations No further investigation is warranted at this time He is not a candidate for angiogram or, if a stent is required, dual antiplatele t therapy Left ventricular function is normal so he may continue to receive anthracene [place] gs Suggest continue with metoprolol for his coronary disease and blood pressure Resume statin when practical from primary team standpoint Since no further investigation is warranted and his cardiac status is stable jerad l sign off. Ross Ferrera MD * Flavia Breen RN - 02/09/2020 4:49 PM CDT CHEMO NOTE Verified chemo consent signed and in chart. Verified initiate chemo order in O2 Blood return positive via:Right dbl PICC, purple lumen BSA and dose double checked (agree with orders as written) with: yes Karena valencia,RN Labs/applicable tests checked: CBC and Basic Metabolic Panel (BMP) Chemo regime: C1D1 decitabine (DACOGEN) 49.2 mg in sodium chloride 0.9% (NS) 109.84 mL IVPB : O rdered Dose 20 mg/m2 2.46 m2 (Treatment Plan Recorded) : Admin Dose 49.2 mg : 110 mL/hr : Intravenous : ONCE From Active Treatment Plan (ONCOLOGY 1) Rate verified and armband double checkwith second RN: yes Patient education offered and stated understanding. Denies questions at this gonzález e. * Angela Gomez, PHARMD - 02/09/2020 2:16 PM CDT Chemotherapy Education: Decitabine Provided patient with written and verbal education regarding decitabine chemothe rapy for the treatment of AML. Reviewed dosing schedule. Patient will receive chemotherapy as follows: Decitabine as an IV infusion for 10 days Reviewed side effects of decitabine therapy, including - but not limited to: Lowering of blood counts (and associated infection, bleeding/bruising, fatigu e) Nausea and vomiting Bowel changes Hyperglycemia (the medical will monitor blood sugars throughout treatment cou rse) Discussed potential for myelosuppression and infection. Temperature will be norma tored frequently during patient's hospital stay. Discussed that we try to preven t infections by using prophylactic antiinfectives and patient should try to avoi d sources of infection. Discussed potential for nausea/vomiting. Explained that patient will receive ant i-emetics prior to each dose of chemotherapy and that PRN options will be availa ble if needed. Encouraged patient to maintain communication with health care sta ff if feels nauseous throughout treatment course. Encouraged patient to keep up adequate water/nutrition intake. Also discussed potential for constipation/diarr hea. Encouraged patient to maintain communication regarding any bowel changes an d that interventions will be made accordingly to treat diarrhea or constipation as indicated. Reviewed potential need for platelet and blood transfusions as counts will be lo w during chemotherapy and during recovery period. Cautioned patient to be carefu l when brushing teeth to avoid gum bleeding and that patient is at a higher risk for bruising and bleeding. Advised patient that there is an increased incidence of fatigue as the hemoglobin falls. While the incidence of infusion hypersensitivity reactions is rare, cautioned rashaun galicia about this potential and advised patient to report immediately any swellin g, burning, pain, or redness at the infusion site, any trouble breathing, or any chest pain. Patient voiced understanding about the provided information. All questions/reinier rns addressed at this time. Medication handout(s) provided. Oral Chemotherapy Counseling Venetoclax (Venclexta) Jhony Chi was provided medication education regarding his new oral chemothe rapy. I reviewed the role of specialty pharmacy, including access to medication ass istance specialists if needed. How to Take the Medication Jhony Chi was educated on Venetoclax (Venclexta), the indication for becky tment, dose, route, frequency and duration of therapy. Directions: 2 tablets (200 mg) PO daily The patient was educated on the appropriate hydration and antihyperuricemic t herapy based on their TLS risk. Patient was educated to take with a meal and water at approximately the same time each day and to avoid grapefruit products. Patient was educated to swallow tablets whole and not to crush, chew or open tablets. How to Store Medication Jhony Chi was educated to store Venetoclax (Venclexta) at room temperatur e in a safe place away from humidity, pets, and children. I recommended storing the medication in a pill box, if needed, as long as the Venetoclax (Venclexta) was protected from moisture. I recommended if family members would be handling the medication, they should use gloves. Additionally, I recommended cleaning any surfaces touched by venetoclax with bleach, if possible. Adherence Patient was educated on the importance of adherence and that the consequences of non-adherence could include disease progression. The patient's ability to be ad herent with drug therapies was discussed and the patient was provided options fo r tools/resources that promote adherence to therapy. For Jhony Chi How to Manage Missed Doses If a dose is missed and it is within 8 hours of the usual dosing time, I instruc hannah the patient to administer the missed dose as soon as possible and resume the normal daily dosing schedule. If it is more than 8 hours, do not administer the missed dose and resume the usual dosing schedule the next day. If the patient v omits following administration of a dose, no additional doses should be administ ered; the next prescribed dose should be taken at the usual time. Contraindications / Safety Precautions / Adverse Effects Contraindications to therapy, safety precautions, and common adverse effects (yue dutton below) were discussed with the patient. I explained that most patients do NOT experience all these side effects and that this list was not inclusive. I i nstructed patient to report any adverse effects to their doctor, pharmacist or olivia may. What You May Expect? What Should You Do? Tumor lysis syndrome ? Drink recommended amount of fluids and take allopurinol d aily Decreased blood counts, fevers, chills, infections Low white blood cell count and low platelets Your health care providers will test your blood frequently to monitor your blood counts. Report any signs of infection, fever, and unusual bleeding or bruis ing. Phone your doctor right away or go to the nearest emergency department, if yo ur oral temperature is over 38C or 100.4F (unless stated otherwise by your [facility] team). Tell the healthcare team that you are on chemotherapy. Check your temperature, especially if you are feeling unwell with sweats, fev er or chills. Take your temperature before using acetaminophen (Tylenol), sinc e it may mask fever. ? Check with your doctor before getting any vaccines. Fatigue or tiredness Rest often? Take naps if needed. Move slowly when gettin g up. Eat well balanced meals and drink plenty of fluids. Light exercise may help. Do not drive a motor vehicle or operate machinery when feeling tired. Patient was instructed to call and seek help immediately if he had: ? Signs of an infection such as fever, chills, cough, pain or burning when you u rinate. ? Signs of bleeding problems such as black tarry stools; blood in urine; pinpoin t red or purple spots on skin. ? Signs of liver problems such as yellow eyes or skin, white or tala-colored sto ols. Patient was instructed to call nurse or doctor if he had: ? Severe abdominal or stomach cramping or pain. ? No urination or abnormally small amounts of urine Vaccination Status Education The patient was reminded about the importance of receiving an annual influenza v accine as indicated. REMS Program: No REMS is required for this medication. Drug-Drug Interactions: A medication history and reconciliation was performed (including prescription me dications, supplements, over the counter medications, and herbal products). The medication list was updated and the patients current medication list is inclu ded below. I stressed the importance of maintaining an accurate medication list and informing their medical team prior to taking any new medications. Drug-drug and drug-food interactions with the new therapy were assessed and revi ewed with the patient. No significant drug-drug or drug-food interactions were i dentified. Reproductive Concerns: Reproductive concerns were reviewed with the patient. As patient is a male, educ ation was provided regarding adequate contraception for female partners of repro ductive potential and contacting his physician immediately should his partner be come . What to do with any unused or medications: Jhony Chi was instructed to return any unused or medication to a di sposal bin at one of the retail pharmacy locations or to utilize a [facility] take back program. Instructed not to flush the medication down the toilet. Monitoring: Monitoring and follow-up plan was discussed with patient. Jhony Chi was ins tructed to contact the oral chemotherapy pharmacist at [phone] if they have any questions or concerns regarding their medication therapy. [facility]. Will keep patient and team u pdated on status. This medication is considered medium risk per our internal oral chemotherapy ris k categorization and the patient will be contacted for education, toxicity check at 2 weeks, one reassessment at 3 months and then annually, if applicable ([facility] risk monitoring). Questions: Patient was given the opportunity to ask questions. Patient verbalized rachellan pauline, agreed with the plan and had no questions or concerns regarding therapy. Angela Gomez, [place] Clinical Pharmacist 02/09/20 * Angela Gomez PHARMD - 02/09/2020 2:13 PM CDT Initial Assessment: Oral Chemotherapy Jhony Chi is a 75 y.o. male with a diagnosis of acute monocytic leukemia. Indication/Regimen venetoclax + decitabine is being used appropriately for treatment of AML. The do sing regimen of decitabine 20 mg/m2 daily x 10 days plus venetoclax 200mg po juan ly is appropriate for Mr. Chi. It is planned to continue until progression o r unacceptable toxicity. Patient History Cancer Diagnosis: Cancer Staging No matching staging information was found for the patient. Relevant tumor markers: TP53(+) Height, Weight, BSA Estimated body surface area is 2.46 meters squared as calculated from the follow ing: Height as of this encounter: 182.9 cm (72"). Weight as of this encounter: 119.2 kg (262 lb 12.6 oz). No Known Allergies Baseline Labs: CBC w diff Lab Results Component Value Date/Time WBC 76.1 (HH) 02/09/2020 02:12 AM RBC 2.43 (L) 02/09/2020 02:12 AM HGB 7.8 (L) 02/09/2020 02:12 AM HCT 24.0 (L) 02/09/2020 02:12 AM MCV 98.8 02/09/2020 02:12 AM MCH 32.1 02/09/2020 02:12 AM MCHC 32.5 02/09/2020 02:12 AM RDW 17.9 (H) 02/09/2020 02:12 AM PLTCT 39 (L) 02/09/2020 02:12 AM MPV 8.6 02/09/2020 02:12 AM Lab Results Component Value Date/Time ANC 21.31 (H) 02/09/2020 02:12 AM Comprehensive Metabolic Profile Lab Results Component Value Date/Time NA 137 02/09/2020 02:12 AM K 4.0 02/09/2020 02:12 AM CL 113 (H) 02/09/2020 02:12 AM CO2 23 02/09/2020 02:12 AM GAP 1 (L) 02/09/2020 02:12 AM BUN 30 (H) 02/09/2020 02:12 AM CR 1.79 (H) 02/09/2020 02:12 AM GLU 131 (H) 02/09/2020 02:12 AM Lab Results Component Value Date/Time CA 8.4 (L) 02/09/2020 02:12 AM PO4 4.5 02/09/2020 02:12 AM ALBUMIN 3.4 (L) 02/09/2020 02:12 AM TOTPROT 6.3 02/09/2020 02:12 AM ALKPHOS 144 (H) 02/09/2020 02:12 AM AST 35 02/09/2020 02:12 AM ALT 27 02/09/2020 02:12 AM TOTBILI 1.4 (H) 02/09/2020 02:12 AM GFR 37 (L) 02/09/2020 02:12 AM GFRAA 45 (L) 02/09/2020 02:12 AM Serum creatinine: 1.79 mg/dL (H) 02/09/20 0212 Estimated creatinine clearance: 46 mL/min (A) status The patients status was assessed. As patient is a male, education w ill be provided regarding adequate contraception for female partners of reproduc tive potential and contacting his physician immediately should his partner becom e . Medication Reconciliation Prior to Admission medications Medication Sig Start Date End Date Taking? Authorizing Provider adalimumab (CF) (HUMIRA PEN) 40 mg/0.4 mL injection PEN kit Inject 40 mg under t he skin every 14 days. Yes HISTORICAL PROVIDER atorvastatin (LIPITOR) 80 mg tablet Take 40 mg by mouth at bedtime daily. Yes HISTORICAL PROVIDER clobetasoL (TEMOVATE) 0.05 % topical solution Apply topically to affected area twice daily. Yes HISTORICAL PROVIDER fexofenadine (LARISSA) 180 mg tablet Take 180 mg by mouth daily. Yes Provider, Historical ketoconazole (NIZORAL) 2 % topical shampoo Apply topically to affected area twi ce weekly. Apply topically to affected area of damp skin, lather, leave on 5 min utes, and rinse. Repeat Yes HISTORICAL PROVIDER lisinopriL (ZESTRIL) 20 mg tablet Take 10 mg by mouth every morning. Yes HISTO RICAL PROVIDER metoprolol XL (TOPROL XL) 50 mg extended release tablet Take 25 mg by mouth binu y. Yes HISTORICAL PROVIDER prazosin (MINIPRESS) 2 mg capsule Take 2 mg by mouth at bedtime daily. Yes HIS TORICAL PROVIDER venetoclax (VENCLEXTA) 100 mg tablet Take two tablets by mouth daily. Take with food. 02/09/20 Kimberley Stark MD Medication reconciliation is based on the patients most recent medication lis t in the electronic medical record (EMR) including herbal products and OTC medic ations. The patient's medication list will be updated during patient education, after speaking with the patient and prior to dispensing the medication. Drug-drug interactions (DDIs) DDIs were evaluated: The following drug-drug interactions were identified: fluco nazole and they will be managed by dose reduction of venetoclax to 200 mg po juan ly. Follow up plan: will discuss with Caregiver and determine if alternative therapy is appropriate. Drug-Food Interactions Drug-food interactions were evaluated: No significant drug-food interactions wer e identified. Contraindications Contraindications to the use of decitabine/venetoclax were reviewed and no contr aindications were identified for Mr. Chi. Vaccination Status Assessment There is no immunization history on file for this patient. Vaccine history was reviewed. The patient will be reminded about the importance of receiving an annual influenza vaccine as indicated. Safety Precautions Safety precautions for this medication have been reviewed. No concerns have been identified. Risk Evaluation and Mitigation Strategy (REMS) Assessment No REMS is required for this medication. Initial therapy assessment has been completed and Mr. Chi will be contacted to complete education on his regimen. 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 Cameron Abrams Kensal Chemotherapy plan: Dacogen 10 day, ? venetoclax based on ability to get however [facility] BM Bx performed at outside hospital prior to arrival, will request records. We will be able to obtain results from peripheral blood given quantity of blasts and therefore not repeat marrow, plan to obtain FISH for CBF, AML-ETO, MLL, flow cytometry, cytogenetics and 141 gene panel NGS testing. Central line placement. TLS/DIC monitoring Heme: Hyperleukocytosis: 02/05: 3g hydrea 02/06: 2g hydrea 02/07: 2g hydrea BID x 4 doses ordered WBC 02/09/20: 76.1 Bleeding behind left TM: Symptoms started 02/04. Transfuse platelets to keep > 30k Transfusion 02/09/20: None Monitor CBC for transfusion needs, goal Hgb>7 and platelets >30K Monitor DIC panel: outside labs worrisome for DIC, transfuse cryo to keep fibrin ogen > 100 DVT Prophylaxis: SCDs, Chemical prophylaxis contraindicated due to bleeding FEN/Renal: Acute renal insufficiency: renally adjust medications especially in window of TL S. Baseline creatinine 1, current is 1.5, 02/09/20 Cr Cl is 46 Hyperuricemia: give rasburicase 3mg IV x 1 based on outside lab Replace electrolytes per standard protocol unless signs of TLS or MURTAZA Allopurinol loading then 300mg po daily IVF d/c with dyspnea/chest pressure. Lasix 40mg IV x 1, 3kg weight gain since ad , achieved -2.2L More dyspneic, lasix iv 02/08 again Immunocompromised diet ID: Monitor for fevers. 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 Monitor liver function Rheum: inflammatory arthritis: On Humira 40mg sq every 2 weeks, next due 02/09/2020: hold : urinary urgency, incomplete emptying Start Flomax, patient previously on through a urologist. Interactions with posa, so change to fluconazole Psych: Insomnia: improved with 10mg melatonin, schedule qhs Monitor and offer support as needed. Consider Onc/Psych Consult Code status: DNAR-Full Intervention Kimberley Male, MD Subjective: Jhony Chi is a 75 y.o. male. Patient more dyspneic. C/o gas pain. Notes LE edema improved Review of Systems: Review of Systems Constitution: Negative for fever. Respiratory: Positive for shortness of breath. Gastrointestinal: Positive for bloating. Objective: Medications: Scheduled Meds:acyclovir (ZOVIRAX) tablet 400 mg, 400 mg, Oral, BID allopurinoL (ZYLOPRIM) tablet 300 mg, 300 mg, Oral, QDAY cefuroxime (CEFTIN) tablet 250 mg, 250 mg, Oral, BID fluconazole (DIFLUCAN) tablet 200 mg, 200 mg, Oral, QDAY hydroxyurea (HYDREA) capsule 2,000 mg, 2,000 mg, Oral, BID melatonin tablet 10-20 mg, 10-20 mg, Oral, QHS metoprolol tartrate (LOPRESSOR) tablet 12.5 mg, 12.5 mg, Oral, BID sodium chloride PF 0.9% flush 5-10 mL, 5-10 mL, Flush, FLUSH TID tamsulosin (FLOMAX) capsule 0.4 mg, 0.4 mg, Oral, QDAY after breakfast Continuous Infusions: PRN and Respiratory Meds:acetaminophen Q6H PRN, alteplase PRN (Brand Recorder from Rx), alum/mag hydroxide/simeth Q6H PRN, magnesium sulfate 4 g/50 mL PRN, oxymetazoli ne BID PRN, potassium chloride in water PRN (Brand Recorder from Rx) OR potassium c hloride SR PRN (Brand Recorder from Rx), prochlorperazine Q6H PRN OR prochlorperazi ne Q6H PRN, senna/docusate QDAY PRN, simethicone Q6H PRN, sodium chloride 0.9 % TKO infusion PRN, sodium chloride 0.9% irrigation bottle PRN, sodium phosphate IVPB PRN (Brand Recorder from Rx), traMADoL Q6H PRN Vital Signs: Last Filed Vital Signs: 24 Hour Range BP: 135/62 (02/08 209) Temp: 37.4 C (99.4 F) (02/08 209) Pulse: 92 (02/08 209) Respirations: 20 PER MINUTE (02/08 209) SpO2: 93 % (02/08 209) BP: (100-170)/(47-80) Temp: [36.8 C (98.2 F)-37.9 C (100.2 F)] Pulse: [61-100] Respirations: [20 PER MINUTE-22 PER MINUTE] SpO2: [93 %-97 %] Verbal Pain Description: Moderate Pain Vitals: 02/07/20 0155 02/08/20 0234 02/09/20 0209 Weight: 119.2 kg (262 lb 12.6 oz) 122 kg (268 lb 15.4 oz) 119.2 kg (262 lb 12.6 oz) Intake/Output Summary: (Last 24 hours) Intake/Output Summary (Last 24 hours) at 02/09/2020 0710 Last data filed at 02/09/2020 0519 Gross per 24 hour Intake 806.83 ml Output 3050 ml Net -2243.17 ml Performance Status (Karnofsky): 70% Cares for self; unable to do normal activit y, or active work ECOG PS: 2 Physical Exam Vitals signs and nursing note reviewed. Constitutional: Appearance: Normal appearance. HENT: Mouth/Throat: Mouth: Mucous membranes are moist. Pharynx: No oropharyngeal exudate. Eyes: General: No scleral icterus. Cardiovascular: Rate and Rhythm: Normal rate. Pulses: Normal pulses. Heart sounds: Normal heart sounds. No murmur. Pulmonary: Effort: Respiratory distress present. Breath sounds: Rales present. No wheezing. Abdominal: General: There is distension. Tenderness: There is no abdominal tenderness. Musculoskeletal: Right lower leg: No edema. Left lower leg: No edema. Neurological: Mental Status: He is alert. Psychiatric: Mood and Affect: Mood normal. Lab Review: CBC w diff Lab Results Component Value Date/Time WBC 76.1 (HH) 02/09/2020 02:12 AM RBC 2.43 (L) 02/09/2020 02:12 AM HGB 7.8 (L) 02/09/2020 02:12 AM HCT 24.0 (L) 02/09/2020 02:12 AM MCV 98.8 02/09/2020 02:12 AM MCH 32.1 02/09/2020 02:12 AM MCHC 32.5 02/09/2020 02:12 AM RDW 17.9 (H) 02/09/2020 02:12 AM PLTCT 39 (L) 02/09/2020 02:12 AM MPV 8.6 02/09/2020 02:12 AM Lab Results Component Value Date/Time ANC 21.31 (H) 02/09/2020 02:12 AM Comprehensive Metabolic Profile Lab Results Component Value Date/Time NA 137 02/09/2020 02:12 AM K 4.0 02/09/2020 02:12 AM CL 113 (H) 02/09/2020 02:12 AM CO2 23 02/09/2020 02:12 AM GAP 1 (L) 02/09/2020 02:12 AM BUN 30 (H) 02/09/2020 02:12 AM CR 1.79 (H) 02/09/2020 02:12 AM GLU 131 (H) 02/09/2020 02:12 AM Lab Results Component Value Date/Time CA 8.4 (L) 02/09/2020 02:12 AM PO4 4.5 02/09/2020 02:12 AM ALBUMIN 3.4 (L) 02/09/2020 02:12 AM TOTPROT 6.3 02/09/2020 02:12 AM ALKPHOS 144 (H) 02/09/2020 02:12 AM AST 35 02/09/2020 02:12 AM ALT 27 02/09/2020 02:12 AM TOTBILI 1.4 (H) 02/09/2020 02:12 AM GFR 37 (L) 02/09/2020 02:12 AM GFRAA 45 (L) 02/09/2020 02:12 AM Radiology Review: Pertinent radiology reviewed and discussed in assessment and plan. Kimberley Stark MD Pager [phone] * Marissa Gallagher RN - 02/09/2020 6:47 AM CDT Shift:[id number] NEWS Score: 1 (96 HR) 1 (94%) 2 (92 HR, 93%) Pain:Given simethicone x1 and mylanta x1 for mild gas discomfort, see MAR. No other c/o pain this shift, no other interventions required Nutrition:IS diet, pt did not eat this shift, adequate oral intake. No c/o N/V this shift, no interventions required GI/:LBM: 02/07, small amounts of clear, yellow urine this shift Activity:SBA d/t weakness Family: Last Shower:02/07 New Events or Follow-up: --potentially starting chemo today --potential ECHO today --no replacements given this shift * Male, Kibmerley Magana MD - 02/08/2020 7:15 AM CDT Acute Leukemia Service Progress Note Today's Date: 02/08/2020 Name: Jhony Chi Admission Date: 02/06/2020 LOS: LOS: 2 days Assessment/Plan: Active Problems: Paroxysmal A-fib (HCC) CAD (coronary artery disease) Inflammatory arthritis Hyperlipidemia AML (acute myeloblastic leukemia) (HCC) Primary diagnosis: Acute monocytic leukemia Cytogenetics/FISH: AML/ETO, CBFB, MLL and p53 all negative NGS: pending Assigned traffic coordinator/outpatient primary oncologist: n/a not candidate Referring physician: Dr. Camreon Abrams Kensal Chemotherapy plan: Likely HMA/venetoclax, will send Rx for venetoclax and await TP53 to determine vidaza vs dacogen. Evaluated open clinical trials and not a go od fit for any active enrolling Admitted for acute evaluation and management. BM Bx performed at outside hospital prior to arrival, will request records. We will be able to obtain results from peripheral blood given quantity of blasts and therefore not repeat marrow, plan to obtain FISH for CBF, AML-ETO, MLL, flow cytometry, cytogenetics and 141 gene panel NGS testing. Central line placement. TLS/DIC monitoring Heme: Hyperleukocytosis: 02/05: 3g hydrea 02/06: 2g hydrea 3/22: 2g hydrea BID x 4 doses ordered WBC 02/08/20: 68.2 Bleeding behind left TM: Symptoms started 02/04. Transfuse platelets to keep > 30k Transfusion 02/08/20: Platelets Monitor CBC for transfusion needs, goal Hgb>7 and platelets >30K Monitor DIC panel: outside labs worrisome for DIC, transfuse cryo to keep fibrin ogen > 100 DVT Prophylaxis: SCDs, Chemical prophylaxis contraindicated due to bleeding FEN/Renal: Acute renal insufficiency: renally adjust medications especially in window of TL S. Baseline creatinine 1, current is 1.5, 02/08/20 Cr Cl is 46.6 Hyperuricemia: give rasburicase 3mg IV x 1 based on outside lab Replace electrolytes per standard protocol unless signs of TLS or MURTAZA Allopurinol loading then 300mg po daily IVF d/c with dyspnea/chest pressure. Lasix 40mg IV x 1, 3kg weight gain since ad lam Immunocompromised diet ID: Monitor for fevers. 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 Monitor liver function Rheum: inflammatory arthritis: On Humira 40mg sq every 2 weeks, next due 02/09/2020: hold : urinary urgency, incomplete emptying Start Flomax, patient previously on through a urologist. Interactions with posa, so change to fluconazole Psych: Insomnia: improved with 10mg melatonin, schedule qhs Monitor and offer support as needed. Consider Onc/Psych Consult Code status: DNAR-Full Intervention Kimberley Male, Subjective: Jhony Chi is a 75 y.o. male. Patient c/o band like pressure, points more to abdomen than chest. Notes dyspnea . States having hard time sleeping, notes improved with sleeping pill from last ni ght Review of Systems: Review of Systems Constitution: Negative for fever. Cardiovascular: Positive for dyspnea on exertion. Negative for leg swelling. Gastrointestinal: Positive for bloating. Psychiatric/Behavioral: The patient has insomnia. Objective: Medications: Scheduled Meds:acyclovir (ZOVIRAX) tablet 400 mg, 400 mg, Oral, BID allopurinoL (ZYLOPRIM) tablet 300 mg, 300 mg, Oral, QDAY fluconazole (DIFLUCAN) tablet 400 mg, 400 mg, Oral, QDAY levoFLOXacin (LEVAQUIN) tablet 500 mg, 500 mg, Oral, Q24H* melatonin tablet 10-20 mg, 10-20 mg, Oral, QHS metoprolol tartrate (LOPRESSOR) tablet 12.5 mg, 12.5 mg, Oral, BID oxymetazoline (AFRIN) 0.05 % nasal spray 2 spray, 2 spray, Each Nostril, ONCE simethicone (MYLICON) chew tablet 80 mg, 80 mg, Oral, ONCE sodium chloride PF 0.9% flush 5-10 mL, 5-10 mL, Flush, FLUSH TID tamsulosin (FLOMAX) capsule 0.4 mg, 0.4 mg, Oral, QDAY after breakfast Continuous Infusions: sodium chloride 0.9 % infusion Stopped (02/07/20 5008) PRN and Respiratory Meds:acetaminophen Q6H PRN, alteplase PRN (Brand Recorder from Rx), alum/mag hydroxide/simeth Q6H PRN, magnesium sulfate 4 g/50 mL PRN, oxymetazoli ne BID PRN, potassium chloride in water PRN (Brand Recorder from Rx) OR potassium c hloride SR PRN (Brand Recorder from Rx), prochlorperazine Q6H PRN OR prochlorperazi ne Q6H PRN, senna/docusate QDAY PRN, simethicone Q6H PRN, sodium chloride 0.9 % TKO infusion PRN, sodium chloride 0.9% irrigation bottle PRN, sodium phosphate IVPB PRN (Brand Recorder from Rx), traMADoL Q6H PRN Vital Signs: Last Filed Vital Signs: 24 Hour Range BP: 133/51 (02/07 635) Temp: 36.7 C (98.1 F) (02/07 635) Pulse: 88 (02/07 635) Respirations: 20 PER MINUTE (02/07 635) SpO2: 93 % (02/07 635) BP: (96-147)/(39-73) Temp: [36.7 C (98.1 F)-37.9 C (100.2 F)] Pulse: [81-98] Respirations: [18 PER MINUTE-20 PER MINUTE] SpO2: [93 %-97 %] Verbal Pain Description: Moderate Pain Vitals: 02/06/20 1908 02/07/20 0155 02/08/20 0234 Weight: 119.4 kg (263 lb 4.8 oz) 119.2 kg (262 lb 12.6 oz) 122 kg (268 lb 15.4 o z) Intake/Output Summary: (Last 24 hours) Intake/Output Summary (Last 24 hours) at 02/08/2020 0715 Last data filed at 02/08/2020 0607 Gross per 24 hour Intake 3572 ml Output 775 ml Net 2797 ml Performance Status (Karnofsky): 70% Cares for self; unable to do normal activit y, or active work ECOG PS: 2 Physical Exam Vitals signs and nursing note reviewed. Constitutional: General: He is not in acute distress. Appearance: Normal appearance. HENT: Mouth/Throat: Mouth: Mucous membranes are moist. Pharynx: No oropharyngeal exudate. Eyes: General: No scleral icterus. Cardiovascular: Rate and Rhythm: Normal rate. Pulses: Normal pulses. Heart sounds: Normal heart sounds. No murmur. Pulmonary: Effort: Pulmonary effort is normal. Breath sounds: Normal breath sounds. No wheezing or rales. Abdominal: General: There is distension. Tenderness: There is no abdominal tenderness. Musculoskeletal: Right lower leg: No edema. Left lower leg: No edema. Neurological: Mental Status: He is alert. Psychiatric: Mood and Affect: Mood normal. Lab Review: CBC w diff Lab Results Component Value Date/Time WBC 68.2 (HH) 02/08/2020 02:34 AM RBC 2.57 (L) 02/08/2020 02:34 AM HGB 8.3 (L) 02/08/2020 02:34 AM HCT 25.1 (L) 02/08/2020 02:34 AM MCV 97.5 02/08/2020 02:34 AM MCH 32.2 02/08/2020 02:34 AM MCHC 33.0 02/08/2020 02:34 AM RDW 18.0 (H) 02/08/2020 02:34 AM PLTCT 27 (L) 02/08/2020 02:34 AM MPV 7.9 02/08/2020 02:34 AM Lab Results Component Value Date/Time ANC 10.23 (H) 02/08/2020 02:34 AM Comprehensive Metabolic Profile Lab Results Component Value Date/Time NA 141 02/08/2020 02:34 AM K 3.9 02/08/2020 02:34 AM CL 110 02/08/2020 02:34 AM CO2 22 02/08/2020 02:34 AM GAP 9 02/08/2020 02:34 AM BUN 28 (H) 02/08/2020 02:34 AM CR 1.79 (H) 02/08/2020 02:34 AM GLU 127 (H) 02/08/2020 02:34 AM Lab Results Component Value Date/Time CA 8.1 (L) 02/08/2020 02:34 AM PO4 5.2 (H) 02/08/2020 02:34 AM ALBUMIN 3.5 02/08/2020 02:34 AM TOTPROT 6.2 02/08/2020 02:34 AM ALKPHOS 129 (H) 02/08/2020 02:34 AM AST 37 02/08/2020 02:34 AM ALT 26 02/08/2020 02:34 AM TOTBILI 1.4 (H) 02/08/2020 02:34 AM GFR 37 (L) 02/08/2020 02:34 AM GFRAA 45 (L) 02/08/2020 02:34 AM Radiology Review: Pertinent radiology reviewed and discussed in assessment and plan. Kimberley Stark MD Pager [phone] * Marissa Gallagher, [place] - 02/08/2020 6:49 AM CDT ..Shift: NEWS Score: 1 (94%) 0 1 (95%) Pain: c/o new onset abdominal discomfort and tightness, Brien notified and pain believed to be gas related. Simethicone and GI cocktail ordered and given w ith some relief, see note. Given Simethicone x2 for unrelieved gas pain, second dose given early per MD Nutrition: IS diet, pt did not eat this shift, adequate oral intake. No c/o N/V this shift, no interventions required GI/: LBM: 02/06, small amounts of clear, yellow urine this shift Activity: SBA d/t weakness Family: Last Shower: 02/06 New Events or Follow-up: --Afrin spray added to MAR for c/o stuff/blocked nose, see MAR --Continuous fluids held per Dr. Tesfaye, see note --Per Dr. Tesfaye: lactic, BNP, troponin, and Lipase drawn. Lactic 0.9, BNP 532, Troponin 0.69, STAT EKG ordered and consult to cardiology p laced and will trend troponin --0230 troponin: 0.74 --0700 troponin: pending 0530: chest x-ray ordered per cardiology --Replacements given: RBCs (Hgb 6.8, from BID labs drawn at 1830), Platelets (27 , orders to keep >30) * Marissa Gallagher, [place] - 02/08/2020 5:23 AM CDT 2300: Pt reporting new onset abdominal tightness and discomfort. VS WNL and no S OA or difficulty breathing. Pt also not having any pitting edema. Dr. Tesfaye notified and will assess the patient. Orders to pause continuous fluids until Nils Tesfaye assess patient. 0015: Orders placed for simethicone, GI cocktail, and labs to be drawn (BNP, Tro ponin, Lipase, Lactic, and Lipase) . Per , orders to hold fluid until 0400. 0100: labs drawn, pt states at this time abdominal comfort is starting to decrea se. WCTM. 0200: Lactic: 0.9 BNP 523 Troponin: 0.[address] Tesfaye, STAT EKG ordered, consult to cardiology placed, Troponin to be trended at 0215 and 0700. Will hold continous fluids until day team arrives. 0215 Troponin: 0.74, Dr. Tesfaye notified, no new orders * Brian Tesfaye MD - 02/08/2020 2:10 AM CDT Developed epigastric abdominal discomfort, band like, constant, has had it befor e thought it was associated with gas and indigestion and would try TUMS with imp rovement, has been having SOA, but that has been chronic and thought related to anemia. He denies any chest pain, no Radiation to rest of abdomen or up to the neck or arm, no palpitations or diaphoresis, no n/v, no diarrhea, no abdominal p ain, no urinary symptoms. Vitals: 02/07/20 2352 02/08/20 0020 02/08/20 0050 02/08/20 0123 BP: 138/58 (!) 147/62 127/54 BP Source: Arm, Right Upper Arm, Right Upper Arm, Left Upper Pulse: 81 87 86 Temp: 37.9 C (100.2 F) 36.8 C (98.3 F) 37.1 C (98.8 F) 37 C (98.6 F) SpO2: 94% 94% 94% Weight: Height: Exam: General: Awake, alert, NAD Head: Normocephalic, atraumatic Chest: RRR, no murmurs Pulm: CTAB, no rales, rhonchi or wheezing Abd: soft,, nt, no masses, distended abdomen with high pitched bowel bowel sound s, tympanic on percussion diffusely. Lactate - neg, Trop 0.69, bnp 523, bili total 1.3 (day before 1.2), and bili dir ect 0.5, alk phos 132 from 102 A/P: Abdominal discomfort Elevated troponin and bnp - Differential includes gas vs. Indigestion vs. Atypical chest pain (high risk d ue to h/o CABG and heart disease) - discomfort improved with GI cocktail and simethicone - Will get ECG, and consult cardiology due to high risk, will likely need echo ( defer to cardiology) - Will trend troponin Addendum 0533: - troponin trending up 0.69->0.74-> - ECG shows sinus rhythm with prior infarct, no acute ST segment or T wave chin es concerning for STEMI - Will get CXR and give one dose of nitro to see if pain improves, no anticoagul ation due to active bleeding and severe thrombocytopenia in the setting of acute leukemia - Will page Cardiology so they are aware of the patient and see him earlier rath er than later * Male, Kimberley Magana MD - 02/07/2020 8:26 AM CDT Acute Leukemia Service Progress Note Today's Date: 02/07/2020 Name: Jhony Chi Admission Date: 02/06/2020 LOS: LOS: 1 day Assessment/Plan: Active Problems: Paroxysmal A-fib (HCC) CAD (coronary artery disease) Inflammatory arthritis Hyperlipidemia 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 Cameron Abrams, [place] Chemotherapy plan: Likely HMA/venetoclax, will send Rx for venetoclax and await TP53 to determine vidaza vs dacogen. Evaluated open clinical trials and not a go od fit for any active enrolling Admitted for acute evaluation and management. BM Bx performed at outside hospital prior to arrival, will request records. We will be able to obtain results from peripheral blood given quantity of blasts and therefore not repeat marrow, plan to obtain FISH for CBF, AML-ETO, MLL, flow cytometry, cytogenetics and 141 gene panel NGS testing. Central line placement. TLS/DIC monitoring Heme: Hyperleukocytosis: 3g hydrea ordered x 1 02/05, 2g ordered 02/06. Chemo consent ob tained Bleeding behind left TM: Symptoms started 02/04. Transfuse platelets to keep > 30k Transfusion 02/07/20: PRBC, Monitor CBC for transfusion needs, goal Hgb>7 and platelets >30K Monitor DIC panel: outside labs worrisome for DIC, transfuse cryo to keep fibrin ogen > 100 DVT Prophylaxis: SCDs, Chemical prophylaxis contraindicated due to bleeding FEN/Renal: Acute renal insufficiency: renally adjust medications especially in window of TL S. Baseline creatinine 1, current is 1.5, 02/07/20 Cr Cl is 53.2 Hyperuricemia: give rasburicase 3mg IV x 1 based on outside lab TLS and uric acid monitoring. Management per institutional algorithm Replace electrolytes per standard protocol unless signs of TLS or MURTAZA Allopurinol loading then 300mg po daily IVF 100ml/hr with risk of TLS Immunocompromised diet ID: Monitor for fevers. Will draw blood cultures with first fever and start empiric antibiotics Start prophylactic anti-infectives: Levaquin, Fluconazole, acyclovir CV: CAD: s/p 3v CABG Paroxysmal Afib: HR normal currently, noted on internal monitor lasting about 8 hours, Hypertension: Lisinopril 10mg as outpatient, hold, continue Toprol XL but hold i f hypotensive (d/c 02/06 and his prazosin prior to in hospital dose due to bp 90' s/30's) HLD: hold atorvastatin Echo 12/2019 outside: EF 55-60%, mild grade 1 diastolic dysfunction GI: Hx of bowel obstruction s/p colostomy and reanastomosis Monitor for GI distress and prn antiemetics available. Monitor liver function Rheum: inflammatory arthritis: On Humira 40mg sq every 2 weeks, next due 02/09/2020: hold : urinary urgency, incomplete emptying Start Flomax, patient previously on through a urologist. Interactions with posa, so change to fluconazole Psych: Monitor and offer support as needed. Consider Onc/Psych Consult Code status: DNAR-Full Intervention Kimberley Stark MD Subjective: Jhony Chi is a 75 y.o. male. Patient depressed this AM, otherwise denies new symptoms. Continues to have left ear fullness, but no change from yesterday. No new areas of bleeding Discussed w/ pt and his AML diagnosis, tests we were waiting on and treatme nt decisions. Review of Systems: Review of Systems Constitution: Negative for fever. HENT: Positive for hearing loss. Respiratory: Negative for shortness of breath. Gastrointestinal: Negative for nausea. Objective: Medications: Scheduled Meds:acyclovir (ZOVIRAX) tablet 400 mg, 400 mg, Oral, BID allopurinoL (ZYLOPRIM) tablet 300 mg, 300 mg, Oral, QDAY levoFLOXacin (LEVAQUIN) tablet 500 mg, 500 mg, Oral, Q24H* metoprolol XL (TOPROL XL) tablet 25 mg, 25 mg, Oral, QDAY posaconazole EC (NOXAFIL) tablet 300 mg, 300 mg, Oral, BID w/meals Followed by posaconazole EC (NOXAFIL) tablet 300 mg, 300 mg, Oral, QDAY w/breakfast prazosin (MINIPRESS) capsule 2 mg, 2 mg, Oral, TID sodium chloride PF 0.9% flush 5-10 mL, 5-10 mL, Flush, FLUSH TID Continuous Infusions: sodium chloride 0.9 % infusion 100 mL/hr at 02/06/202021 PRN and Respiratory Meds:acetaminophen Q6H PRN, alteplase PRN (Brand Recorder from Rx), alum/mag hydroxide/simeth Q6H PRN, magnesium sulfate 4 g/50 mL PRN, melatonin Q HS PRN, potassium chloride in water PRN (Brand Recorder from Rx) OR potassium chlor fernando SR PRN (Brand Recorder from Rx), prochlorperazine Q6H PRN OR prochlorperazine Q 6H PRN, senna/docusate QDAY PRN, sodium chloride 0.9 % TKO infusion PRN, sodium chloride 0.9% irrigation bottle PRN, sodium phosphate IVPB PRN (Brand Recorder from Rx ), traMADoL Q6H PRN Vital Signs: Last Filed Vital Signs: 24 Hour Range BP: 98/39 (02/07 816) Temp: 37.1 C (98.7 F) (02/06 815) Pulse: 88 (03/21 0815) Respirations: 20 PER MINUTE (02/06 815) SpO2: 95 % (02/06 815) Height: 182.9 cm (72") (02/05 2122) BP: (96-166)/(39-61) Temp: [36.2 C (97.2 F)-37.1 C (98.7 F)] Pulse: [78-88] Respirations: [18 PER MINUTE-20 PER MINUTE] SpO2: [94 %-96 %] Vitals: 02/06/20 1908 02/07/20 0155 Weight: 119.4 kg (263 lb 4.8 oz) 119.2 kg (262 lb 12.6 oz) Intake/Output Summary: (Last 24 hours) Intake/Output Summary (Last 24 hours) at 02/07/2020 0826 Last data filed at 02/07/2020 0816 Gross per 24 hour Intake 1996.75 ml Output 175 ml Net 1821.75 ml Performance Status (Karnofsky): 70% Cares for self; unable to do normal activit y, or active work ECOG PS: 2 Physical Exam Vitals signs and nursing note reviewed. Constitutional: General: He is not in acute distress. Appearance: Normal appearance. HENT: Mouth/Throat: Mouth: Mucous membranes are moist. Pharynx: No oropharyngeal exudate. Eyes: General: No scleral icterus. Cardiovascular: Pulses: Normal pulses. Heart sounds: Normal heart sounds. No murmur. Pulmonary: Effort: Pulmonary effort is normal. Breath sounds: Normal breath sounds. No wheezing. Abdominal: General: There is no distension. Palpations: Abdomen is soft. Tenderness: There is no abdominal tenderness. Musculoskeletal: Right lower leg: Edema present. Left lower leg: Edema present. Neurological: Mental Status: He is alert. Psychiatric: Mood and Affect: Mood normal. Lab Review: CBC w diff Lab Results Component Value Date/Time WBC 65.0 (HH) 02/07/2020 06:00 AM RBC 2.00 (L) 02/07/2020 06:00 AM HGB 6.7 (L) 02/07/2020 06:00 AM HCT 20.9 (L) 02/07/2020 06:00 AM MCV 104.5 (H) 02/07/2020 06:00 AM MCH 33.5 02/07/2020 06:00 AM MCHC 32.0 02/07/2020 06:00 AM RDW 15.9 (H) 02/07/2020 06:00 AM PLTCT 43 (L) 02/07/2020 06:00 AM MPV 8.2 02/07/2020 06:00 AM Lab Results Component Value Date/Time ANC 13.65 (H) 02/07/2020 06:00 AM Comprehensive Metabolic Profile Lab Results Component Value Date/Time NA 142 02/07/2020 06:00 AM K 3.7 02/07/2020 06:00 AM CL 109 02/07/2020 06:00 AM CO2 22 02/07/2020 06:00 AM GAP 11 02/07/2020 06:00 AM BUN 24 02/07/2020 06:00 AM CR 1.55 (H) 02/07/2020 06:00 AM GLU 109 (H) 02/07/2020 06:00 AM Lab Results Component Value Date/Time CA 8.2 (L) 02/07/2020 06:00 AM PO4 5.5 (H) 02/07/2020 06:00 AM ALBUMIN 3.3 (L) 02/07/2020 06:00 AM TOTPROT 5.8 (L) 02/07/2020 06:00 AM ALKPHOS 102 02/07/2020 06:00 AM AST 31 02/07/2020 06:00 AM ALT 23 02/07/2020 06:00 AM TOTBILI 1.2 02/07/2020 06:00 AM GFR 44 (L) 02/07/2020 06:00 AM GFRAA 53 (L) 02/07/2020 06:00 AM Radiology Review: Pertinent radiology reviewed and discussed in assessment and plan. Kimberley Stark MD Pager [phone] * Rosamaria Gary RN - 02/07/2020 8:23 AM CDT 02/07/20 0815 02/07/20 0816 Vitals BP (!) 96/39 (RN Notify) (!) 98/39 (RN Notify) Mean NBP (Calculated) 58 MM HG 59 MM HG Pt asymptomatic and sitting up in bed. Gypsy Segundo NP notified and gave orders to get a set of orthostatic blood pressures to assess for orthostasis. Wi ll complete and report to team. * Marissa Gallagher RN - 02/07/2020 6:57 AM CDT ..Shift: [id number] NEWS Score: 1 (95%) 0 2 (95%, 101 SBP) Pain: no c/o pain this shift, no interventions required Nutrition: IS diet, pt drank 100% of chocolate shake this shift, adequate oral i ntake. No c/o N/V this shift, no interventions required GI/: LBM: 02/05, small amounts of clear, yellow urine this shift Activity: UAL, pt passed orthostatic VS and has a strong steady gait with no c/ o weakness or dizziness at this time Family: Last Shower: [employer] New Events or Follow-up: --PICC placed this shift --1 unit of platelets given per MD d/t blood behind tempanic membrane --Replacements needed; RBCs (Hgb 6.7, from BID labs drawn at 0630) * Annita Silva RN - 02/06/2020 11:20 PM CDT PICC line ordered first order for a dual and second order for a triple. We texte d Dr Tesfaye and he agreed to place a dual lumen PICC line. This line was bakari marlene at [id number] * Stephani Lechuga RN - 02/06/2020 6:38 PM CDT Patient arrived to room # (9986) via ambulation accompanied by transport. Patien t transferred to the bed without assistance. Bedside safety checks completed. In itial patient assessment completed. Refer to flowsheet for details. Admission skin assessment completed with: Brent Hamm RN Pressure injury present on arrival?: No 1. Head/Face/Neck: No 2. Trunk/Back: No 3. Upper Extremities: No 4. Lower Extremities: No 5. Pelvic/Coccyx: No 6. Assessed for device associated injury? Yes 7. Malnutrition Screening Tool (Nursing Nutrition Assessment) Completed? No documented in this encounter H&P Notes * Augustina Gomez MD - 02/18/2020 10:22 AM CDT History and Physical Update Note Allergies: Patient has no known allergies. Lab/Radiology/Other Diagnostic Tests: 24-hour labs: Results for orders placed or performed during the hospital encounter of 02/06/20 (from the past 24 hour(s)) PHOSPHORUS CELLULAR THERAPEUTICS Collection Time: 02/17/20 3:43 PM Result Value Ref Range Phosphorus 2.8 2.0 - 4.5 MG/DL COMPREHENSIVE METABOLIC PANEL CELLULAR THERAPEUTICS Collection Time: 02/18/20 2:10 AM Result Value Ref Range Sodium 138 137 - 147 MMOL/L Potassium 3.7 3.5 - 5.1 MMOL/L Chloride 105 98 - 110 MMOL/L Glucose 113 (H) 70 - 100 MG/DL Blood Urea Nitrogen 25 7 - 25 MG/DL Creatinine 1.36 (H) 0.4 - 1.24 MG/DL Calcium 8.1 (L) 8.5 - 10.6 MG/DL Total Protein 5.9 (L) 6.0 - 8.0 G/DL Total Bilirubin 1.5 (H) 0.3 - 1.2 MG/DL Albumin 3.1 (L) 3.5 - 5.0 G/DL Alk Phosphatase 237 (H) 25 - 110 U/L AST (SGOT) 27 7 - 40 U/L CO2 25 21 - 30 MMOL/L ALT (SGPT) 31 7 - 56 U/L Anion Gap 8 3 - 12 eGFR Non 51 (L) >60 mL/min eGFR >60 >60 mL/min PHOSPHORUS CELLULAR THERAPEUTICS Collection Time: 02/18/20 2:10 AM Result Value Ref Range Phosphorus 3.5 2.0 - 4.5 MG/DL CBC AND DIFF CELLULAR THERAPEUTICS Collection Time: 02/18/20 2:10 AM Result Value Ref Range White Blood Cells 3.5 (L) 4.5 - 11.0 K/UL RBC 2.39 (L) 4.4 - 5.5 M/UL Hemoglobin 7.8 (L) 13.5 - 16.5 GM/DL Hematocrit 22.5 (L) 40 - 50 % MCV 94.2 80 - 100 FL MCH 32.5 26 - 34 PG MCHC 34.5 32.0 - 36.0 G/DL RDW 15.3 (H) 11 - 15 % Platelet Count 18 (LL) 150 - 400 K/UL MPV 7.3 7 - 11 FL Segmented Neutrophils 15 (L) 41 - 77 % Bands 2 0 - 10 % Lymphocytes 29 24 - 44 % Monocytes 30 (H) 4 - 12 % Eosinophil 3 0 - 5 % Metamyelocyte 2 % Blast 19 % ANISO PRESENT Platelet Estimate MKD DEC Absolute Neutrophil Count Manual 0.60 (L) 1.8 - 7.0 K/UL PREPARE APHERESIS PLATELETS Collection Time: 02/18/20 2:43 AM Result Value Ref Range Units Ordered 1 Unit Number [id number] Blood Component Type APHERESIS PLT,LEUKO REDUCED,IRRADIATED,1ST CONT. Unit Division 0 Status OF Unit ISSUED Transfusion Status OK TO TRANSFUSE Point of Care Testing: (Last 24 hours): Glucose: (!) 113 (02/18/20 0210) I have examined the patient, and there are no significant changes in their condi tion, from the previous H&P performed on 02-15-20. Augustina Gomez MD Pager [phone] * Gunnar Mendes - 02/15/2020 6:45 PM CDT Note to satisfy consult request. Please see H&P from earlier in day * Male, Kimberley Magana MD - 02/06/2020 7:03 PM CDT Acute Leukemia Service Admission H&P Jhony Chi Admission Date: 02/06/2020 Assessment/Plan: Active Problems: Paroxysmal A-fib (HCC) CAD (coronary artery disease) Inflammatory arthritis Hyperlipidemia AML (acute myeloblastic leukemia) (HCC) Patient transferred for new acute leukemia, suspicion for acute monocytic by pre malone outside marrow Primary diagnosis: suspected/new diagnosis of Acute Leukemia, acute monocytic s uspected Cytogenetics/FISH: pending NGS: pending Assigned traffic coordinator/outpatient primary oncologist: n/a not candidate Referring physician: Dr. Cameron Abrams, [place] Chemotherapy plan: Likely HMA/venetoclax, will send Rx for venetoclax and await TP53 to determine vidaza vs dacogen. Evaluated open clinical trials and not a go od fit for any active enrolling Admitted for acute evaluation and management. BM Bx performed at outside hospital prior to arrival, will request records. We will be able to obtain results from peripheral blood given quantity of blasts and therefore not repeat marrow, plan to obtain FISH for CBF, AML-ETO, MLL, flow cytometry, cytogenetics and 141 gene panel NGS testing. Central line placement. TLS/DIC monitoring Heme: Hyperleukocytosis: 3g hydrea ordered x 1 02/05. Chemo consent obtained Bleeding behind left TM: Symptoms started 02/04. Transfuse platelets to keep > 30k Monitor CBC for transfusion needs, goal Hgb>7 and platelets >30K Monitor DIC panel: outside labs worrisome for DIC, transfuse cryo to keep fibrin ogen > 100 DVT Prophylaxis: SCDs, Chemical prophylaxis contraindicated due to bleeding FEN/Renal: Acute renal insufficiency: renally adjust medications especially in window of TL S. Baseline creatinine 1, current is 1.5 Hyperuricemia: give rasburicase 3mg IV x 1 based on outside lab TLS and uric acid monitoring. Management per institutional algorithm Replace electrolytes per standard protocol unless signs of TLS or MURTAZA Allopurinol loading then 300mg po daily Start IVF 100ml/hr with risk of TLS Immunocompromised diet ID: Monitor for fevers. Will draw blood cultures with first fever and start empiric antibiotics Start prophylactic anti-infectives: Levaquin, posaconazole, acyclovir CV: CAD: s/p 3v CABG Paroxysmal Afib: HR normal currently, noted on internal monitor lasting about 8 hours, Hypertension: Lisinopril 10mg as outpatient, hold HLD: hold atorvastatin Echo 12/2019 outside: EF 55-60%, mild grade 1 diastolic dysfunction GI: Hx of bowel obstruction s/p colostomy and reanastomosis Monitor for GI distress and prn antiemetics available. Monitor liver function Rheum: inflammatory arthritis: On Humira 40mg sq every 2 weeks, next due 02/09/2020: hold Psych: Monitor and offer support as needed. Consider Onc/Psych Consult Code Status: DNAR-Full Intervention Kimberley Stark MD Primary Care Physician: No primary care provider on file. Chief Complaint: Suspicion for acute leukemia History of Present Illness: Jhony Chi is a 75 y.o. male Patient presents from referring physician for concern for acute leukemia. He pr esented to his cardiology office and had some blood drawn and was noted to have abnormal labs. At that time he was referred to local oncologist Dr. Cameron Abrams . He was found to have hyperleukocytosis with a white blood cell count of 54.5, hemoglobin of 8, platelet of 26,000, with blasts and atypical monocytes predomi nant. Patient has a creatinine of 1.56, uric acid of 9.9, APTT that is elevated at 45, and INR of 1.4. At Dr. Abrams's office he underwent a bone marrow biopsy today, the prelim report was consistent with acute myeloid leukemia. Patient notes that he has felt poorly since his CABG in August 2018. He since that time he has had significant fatigue. He since he had venous grafting from his right leg. He states that it is been on evaluation at his cardiology office that he had blood taken that looked terrible. And that prompted the referral to the oncology. Patient states that yesterday he noted a fullness in his ears predominantly on t he left. He states that he has chronic tinnitus but this is lasted for years. Review of outside records: October 2019 that demonstrated a white cell count of 8, hemoglobin of 9.7, and a platelet count of 30. In April 2018 the patient had a white blood cell count o f 6, hemoglobin 13.7, and a platelet count of 98,000. The patient had an echoca rdiogram in December 2019 that demonstrated a ejection fraction of 55 to 65% wit h some grade 1 diastolic dysfunction . The patient has an [employer] Linq internal heart rhythm monitoring device bakari marlene February 2019 for paroxysmal afib, was on amiodarone for short period, has had no new observations until December 16. He follows with Dr. Muñiz in [place] SHANE Rahman Medical History: Diagnosis Date AML (acute myeloblastic leukemia) (HCC) CAD (coronary artery disease) Diastolic dysfunction Hyperlipidemia Inflammatory arthritis Paroxysmal A-fib (HCC) Surgical History: Procedure Laterality Date CORONARY ARTERY BYPASS GRAFT 08/2018 CARDIAC CATHERIZATION COLOSTOMY HX HERNIA REPAIR Left REVISION COLOSTOMY Family History Problem Relation Age of Onset Cancer Sister Heart Disease Brother Social History Socioeconomic History Marital status: Not on file Spouse name: Not on file Number of children: Not on file Years of education: Not on file Highest education level: Not on file Occupational History Not on file Social Needs Financial resource strain: Not on file Food insecurity Worry: Not on file Inability: Not on file Transportation needs Medical: Not on file Non-medical: Not on file Tobacco Use Smoking status: Not on file Substance and Sexual Activity Alcohol use: Not on file Drug use: Not on file Sexual activity: Not on file Lifestyle Physical activity Days per week: Not on file Minutes per session: Not on file Stress: Not on file Relationships Social connections Talks on phone: Not on file Gets together: Not on file Attends islam service: Not on file Active member of club or organization: Not on file Attends meetings of clubs or organizations: Not on file Relationship status: Not on file Intimate partner violence Fear of current or ex partner: Not on file Emotionally abused: Not on file Physically abused: Not on file Forced sexual activity: Not on file Other Topics Concern Not on file Social History Narrative Not on file Immunizations (includes history and patient reported): There is no immunization history on file for this patient. Allergies: Patient has no known allergies. Medications: No medications prior to admission. Review of Systems: Comprehensive 10 point ROS pertinent for: Fatigue x 18 months Chronic tinnitus Gum bleeding x 2 weeks Left ear fullness x 1 day Incomplete urinary emptying Physical Exam: Vital Signs: Last Filed In 24 Hours Vital Signs: 24 Hour Range Karnofsky Scale: 70% Cares for self; unable to do normal activity, or active wor k Performance Status ECO Gen: alert and oriented, NAD Head: normocephalic, atraumatic ENT: left TM with hemorrhage medially, no external bleeding observed Eyes: Pupils equal, no scleral icterus or subconjunctival hemorrhages CV: s1/s2 no murmur Pulm: CTA bilaterally Abd: soft, Nontender, no organomegaly Ext: 1+ bilateral LE edema Skin: Surgical scar chest/abdomen. Petechiae lower extremities Lab/Radiology/Other Diagnostic Tests: CBC w diff No results found for: WBC, RBC, HGB, HCT, MCV, MCH, MCHC, RDW, PLTCT, MPV No res ults found for: NEUT, ANC, LYMA, ALC, NISHANT, AMC, EOSA, AEC, BASA, ABC Comprehensive Metabolic Profile No results found for: NA, K, CL, CO2, GAP, BUN, CR, GLU No results found for: CA , PO4, ALBUMIN, TOTPROT, ALKPHOS, AST, ALT, TOTBILI, GFR, GFRAA Radiology: Pertinent radiology reviewed and summarized in assessment and plan Kimberley Stark MD Pager [phone] documented in this encounter Procedure Notes * Annita Silva RN - 02/06/2020 11:18 PM CDT PICC Line Insertion Procedure Note NAME:Jhony Chi :1945 AGE: 75 y.o. ADMISSION DATE: 02/06/2020 DAYS ADMITTED: LOS: 0 days Procedure Details: Informed consent was obtained for the procedure. Risks of in fection, blood clot, and nerve or vessel damage were discussed. Indications: Chemotherapy Procedure: Under sterile conditions the skin at the insertion site was prepped w ith chlorhexadineand covered with a sterile drape. Local anesthesia was applied to the skin and subcutaneous tissues. A #4 FR, Double, PICC was inserted in the Right Basilic vein per hospital protocol. Blood return: Yes Catheter trimmed, i nserted to 47 cm, with 0 cm external. Catheter was flushed with 10 mL NS. Patie nt did tolerate procedure well. Mid upper arm circumference is 36 cm. Verification:Placement confirmed with ECG., Patency verified by positive blood r eturn., Venous location confirmed by ultrasound. and Educational material/teachi ng instruction given to patient and/or left at bedside.DSCV per 3CG with melony harding documented in this encounter Consult Notes * Cinthya Gunnar - 02/15/2020 6:45 PM CDT Associated Order(s): CONSULT PULMONARY/CRITICAL CARE PHYSICIAN Note to satisfy consult request. Please see H&P from earlier in day * Tramaine Myers MD - 02/15/2020 3:18 PM CDT General Consult Note Admission Date: 02/06/2020 LOS: 9 days Consults Reason for Consult: Bronchoscopy Consult type: Opinion with orders Impression: # fever in immunocompromised host # acute hypoxemic respiratory failure # abnormal imaging -- CT CHEST with bilateral, patchy GGOs # AML, receiving dacogen induction # hypervolemia -- elevated BNP on admission, bilateral pleural effusions, LVEF normal # CAD s/p 3-v CABG # prior tobacco use disorder Patient with newly diagnosed AML, currently on induction chemotherapy, with feve rs and progressive infiltrates on imaging. At this time, the differential includ es infection (atypical, fungal, viral), pulmonary edema (h/o CAD, bilateral pleu ral effusions), possible drug induced pneumonitis. Patient will need 2 negative COVID-19 swabs prior to proceeding with bronchoscopy. In the interim, agree with current infectious w/u and antimicrobials. Consider diureses as patient is hype rvolemic and several liters net positive since admission. If repeat COVID-19 and ongoing infectious w/u is negative, will likely proceed with FOB/BAL. Plan: - will need 2 negative COVID-19 tests prior to proceeding with FOB/BAL -- if persistent symptoms and negative infectious w/u, will likely proceed wit h FOB/BAL Saturday 02/17 - f/u pending infectious w/u -- RVP, repeat COVID-19, fungitell, galactomannan - antimicrobials per primary team - dilizze to achieve net negative fluid status The patient was evaluated and discussed with Dr. Myers. The pulmonary service w ill continue to follow. ATTESTATION I personally performed the guardado portions of the E/M visit, discussed case with re angela and concur with resident documentation of history, physical exam, assessm ent, and treatment plan unless otherwise noted. Pt is 75 yo male with new diagn osis of AML. Pt with worsening infiltrates and possibly pulmonary edema on CT i maging. Admitted 02-05 and received Dacogen. Developed NSTEMI with preserved EF and MURTAZA (improving). Pt was febrile on 02-08 with intermittent hypoxia requiring oxygen. Pt notes some mild increased cough of milky mucus. CT chest showed patc hy ground glass infiltrates throughout along with bilateral small pleural effusi ons. Pt is somewhat edematous on exam as well. COVID testing negative times on e to date. Alert on exam. No distress. Breathing comfortably on RA. Notes so me orthopnea, PND and exertional dyspnea with weakness. Has to sit in shower do to fatigue and is winded. He has noted some increased swelling of his LE as we ll. Previous 60 pk/yr smoker. Lungs are clear for the most part. Heart regula r. Bilateral 2+ pitting edema of lower extremities. Reviewed labs and images with fellow. Differential remains infection vs atypical distribution of patchy pulmonary art a. Continue gentle diuresis as tolerated. Continue current antibiotics per ID recs Please send second COVID test. Please send RVP, fungitell and galactomannan. Once this test is negative times two we will consider moving forward with FOB wi BAL. Likely Sunday as we are only performing bronchoscopy on Sunday and W currently. Please cover broadly with empiric antibiotics until this ti me. We will have consult team continue to follow along. Results for JHONY CHI ( ) as of 02/15/2020 15:51 Ref. Range 02/10/2020 11:58 COVID-19 (SARS-CoV-2) PCR Latest Ref Range: DN-NOT DETECTED NOT DETECTED COVID-19 (SARS-CoV-2) PCR Source Unknown NASOPHARYNGEAL SWAB Staff name: Tramaine Myers MD Date: 02/15/2020 History of Present Illness: Jhony Chi is a 75 y/o male with PMHx significant for CAD s/p 3v-CABG, pAF, HTN, HLD, ?CKD, and inflammatory arthritis (on humira) who was admitted for newl y diagnosed AML. Pulmonology consulted for consideration of FOB/BAL in setting o f recurrent fevers with progressive changes on lung imaging. Patient admitted 02/05 for newly diagnosed AML, and was ultimately started on Dac ogen. Hospital course c/b NSTEMI, though echo with normal LVEF and no WMA. Unabl e to assess diastolic function. Also with MURTAZA, which is improving. He was febril e on 02/08 and intermittently hypoxemic requiring supplemental oxygen. CXR was ob tained today due to increasing cough, which noted progressive consolidation, R> L. Subsequent CT CHEST with diffuse, lawrence GGOs and bilateral pleural effusions. Infectious w/u thus far negative, including COVID-19 x1. Patient states he has significant dyspnea. Reports this actually improves with e xertion. Most notable when he is supine. Notes PND as well. Has LE edema. He has intermittent productive cough with "milky" sputum. No hemoptysis. No chest pain. No sick contacts. He was a prior smoker, 60 py history. None since the 80s. No etoh or illicits. N o abnormal exposures. Medical History: Diagnosis Date AML (acute myeloblastic leukemia) (HCC) CAD (coronary artery disease) Diastolic dysfunction Hyperlipidemia Inflammatory arthritis Paroxysmal A-fib (HCC) Surgical History: Procedure Laterality Date CORONARY ARTERY BYPASS GRAFT 08/2018 CARDIAC CATHERIZATION COLOSTOMY HX HERNIA REPAIR Left REVISION COLOSTOMY Social History Socioeconomic History Marital status: Spouse name: Not on file Number of children: Not on file Years of education: Not on file Highest education level: Not on file Occupational History Not on file Social Needs Financial resource strain: Not on file Food insecurity Worry: Not on file Inability: Not on file Transportation needs Medical: Not on file Non-medical: Not on file Tobacco Use Smoking status: Former Smoker Packs/day: 3.00 Years: 30.00 Pack years: 90.00 Types: Cigarettes Last attempt to quit: 02/08/1987 Years since quittin.0 Smokeless tobacco: Never Used Substance and Sexual Activity Alcohol use: Not Currently Drug use: Never Sexual activity: Not on file Lifestyle Physical activity Days per week: Not on file Minutes per session: Not on file Stress: Not on file Relationships Social connections Talks on phone: Not on file Gets together: Not on file Attends islam service: Not on file Active member of club or organization: Not on file Attends meetings of clubs or organizations: Not on file Relationship status: Not on file Intimate partner violence Fear of current or ex partner: Not on file Emotionally abused: Not on file Physically abused: Not on file Forced sexual activity: Not on file Other Topics Concern Not on file Social History Narrative 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 Scheduled Meds:acyclovir (ZOVIRAX) tablet 800 mg, 800 mg, Oral, BID allopurinoL (ZYLOPRIM) tablet 300 mg, 300 mg, Oral, QDAY [START ON 02/16/2020] decitabine (DACOGEN) 49.2 mg in sodium chloride 0.9% (NS) 1 09.84 mL IVPB, 20 mg/m2 (Treatment Plan Recorded), Intravenous, ONCE decitabine (DACOGEN) 49.2 mg in sodium chloride 0.9% (NS) 109.84 mL IVPB, 20 mg/ m2 (Treatment Plan Recorded), Intravenous, ONCE meropenem (MERREM) 1 g in sodium chloride 0.9% (NS) 100 mL IVPB (MB+)(EXTENDED I NFUSION), 1 g, Intravenous, Q8H* metoprolol tartrate (LOPRESSOR) tablet 12.5 mg, 12.5 mg, Oral, BID [START ON 02/16/2020] ondansetron (ZOFRAN) tablet 16 mg, 16 mg, Oral, ONCE posaconazole EC (NOXAFIL) tablet 300 mg, 300 mg, Oral, BID w/meals [START ON 02/16/2020] posaconazole EC (NOXAFIL) tablet 300 mg, 300 mg, Oral, QDAY w/breakfast sodium chloride PF 0.9% flush 5-10 mL, 5-10 mL, Flush, FLUSH TID tamsulosin (FLOMAX) capsule 0.4 mg, 0.4 mg, Oral, QDAY after breakfast Continuous Infusions: PRN and Respiratory Meds:acetaminophen Q6H PRN, albuterol sulfate Q4H PRN, altep lase PRN (Brand Recorder from Rx), alum/mag hydroxide/simeth Q6H PRN, benzonatate TID P RN, guaiFENesin Q6H PRN, magnesium sulfate 4 g/50 mL PRN, oxymetazoline BID PRN, polyethylene glycol 3350 QDAY PRN, potassium chloride in water PRN (Brand Recorder from Rx) OR potassium chloride SR PRN (Brand Recorder from Rx), prochlorperazine Q6H PRN OR prochlorperazine Q6H PRN, senna/docusate QDAY PRN, simethicone Q6H PRN, sodium chloride 0.9 % TKO infusion PRN, sodium chloride 0.9% irrigation bottle PRN, sodium phosphate IVPB PRN (Brand Recorder from Rx), traMADoL Q6H PRN Review of Systems: Review of Systems Constitution: Negative for chills and night sweats. HENT: Negative for ear pain and nosebleeds. Cardiovascular: Positive for dyspnea on exertion, leg swelling, orthopnea and pa roxysmal nocturnal dyspnea. Negative for chest pain and syncope. Respiratory: Positive for cough, shortness of breath and sputum production. Nega tive for wheezing. Endocrine: Negative for polyuria. Hematologic/Lymphatic: Negative for bleeding problem. Musculoskeletal: Negative for joint swelling. Gastrointestinal: Negative for abdominal pain, constipation and diarrhea. Genitourinary: Negative for dysuria and hematuria. Neurological: Negative for dizziness. Psychiatric/Behavioral: Negative for hallucinations. Vital Signs: Last Filed in 24 hours Vital Signs: 24 hour Range BP: 149/55 (02/14 1241) Temp: 37.3 C (99.2 F) (02/14 1241) Pulse: 80 (02/14 1241) Respirations: 16 PER MINUTE (02/14 1241) SpO2: 94 % (02/14 1241) BP: (121-149)/(54-85) Temp: [37.1 C (98.7 F)-37.9 C (100.2 F)] Pulse: [80-98] Respirations: [16 PER MINUTE-20 PER MINUTE] SpO2: [90 %-96 %] Physical Exam: Physical Exam Gen: NAD, sitting in chair HENT: no mucositis or oral ulcers Neck: no adenopathy or thyromegaly CV: NRRR, no mrg Lungs: decreased breath sounds at bases, no wheeze, normal WOB Abd: soft, nt, nd Ext: bilateral pitting LE edema Skin: no rash Neuro: grossly intact Psych: normal mood/affect Lab/Radiology/Other Diagnostic Tests: 24-hour labs: Results for orders placed or performed during the hospital encounter of 02/06/20 (from the past 24 hour(s)) PHOSPHORUS CELLULAR THERAPEUTICS Collection Time: 02/14/20 4:53 PM Result Value Ref Range Phosphorus 4.1 2.0 - 4.5 MG/DL COMPREHENSIVE METABOLIC PANEL CELLULAR THERAPEUTICS Collection Time: 02/15/20 3:10 AM Result Value Ref Range Sodium 138 137 - 147 MMOL/L Potassium 4.3 3.5 - 5.1 MMOL/L Chloride 108 98 - 110 MMOL/L Glucose 104 (H) 70 - 100 MG/DL Blood Urea Nitrogen 34 (H) 7 - 25 MG/DL Creatinine 1.56 (H) 0.4 - 1.24 MG/DL Calcium 8.5 8.5 - 10.6 MG/DL Total Protein 6.1 6.0 - 8.0 G/DL Total Bilirubin 1.1 0.3 - 1.2 MG/DL Albumin 3.2 (L) 3.5 - 5.0 G/DL Alk Phosphatase 215 (H) 25 - 110 U/L AST (SGOT) 26 7 - 40 U/L CO2 23 21 - 30 MMOL/L ALT (SGPT) 29 7 - 56 U/L Anion Gap 7 3 - 12 eGFR Non 43 (L) >60 mL/min eGFR 52 (L) >60 mL/min [facility]OSPH[facility]LL[facility] [employer]ERAPEUT[employer] Collection Time: 02/15/20 3:10 AM Result Value Ref Range Phosphorus 4.0 2.0 - 4.5 MG/DL CBC AND DIFF CELLULAR THERAPEUTICS Collection Time: 02/15/20 3:10 AM Result Value Ref Range White Blood Cells 6.7 4.5 - 11.0 K/UL RBC 2.28 (L) 4.4 - 5.5 M/UL Hemoglobin 7.6 (L) 13.5 - 16.5 GM/DL Hematocrit 21.8 (L) 40 - 50 % MCV 95.7 80 - 100 FL MCH 33.1 26 - 34 PG MCHC 34.6 32.0 - 36.0 G/DL RDW 17.1 (H) 11 - 15 % Platelet Count 26 (L) 150 - 400 K/UL MPV 8.2 7 - 11 FL Nucleated RBCs 2 K/UL Segmented Neutrophils 13 (L) 41 - 77 % Lymphocytes 22 (L) 24 - 44 % Monocytes 12 4 - 12 % Eosinophil 2 0 - 5 % Blast 51 % ANISO PRESENT POIK PRESENT POLY PRESENT Ovalocyte PRESENT Teardrop PRESENT Platelet Estimate MKD DEC Absolute Neutrophil Count Manual 0.87 (L) 1.8 - 7.0 K/UL PREPARE APHERESIS PLATELETS Collection Time: 02/15/20 4:14 AM Result Value Ref Range Units Ordered 1 Unit Number [id number] Blood Component Type APHERESIS PLT,LEUKO REDUCED,IRRADIATED,1ST CONT. Unit Division 0 Status OF Unit ISSUED Transfusion Status OK TO TRANSFUSE PHOSPHOR[facility] CELL[facility] [employer]ERAPEUT[facility] Collection Time: 02/15/20 2:50 PM Result Value Ref Range Phosphorus 3.3 2.0 - 4.5 MG/DL Pertinent radiology reviewed. Gunnar Mendes Pager [phone] * Luis Dale MBBS - 02/08/2020 3:56 PM CDT Associated Order(s): CONSULT CARDIOLOGY PHYSICIAN Consultation Report Jhony Chi Admission Date: 02/06/2020 Assessment/Plan: Active Problems: Paroxysmal A-fib (HCC) CAD (coronary artery disease) Inflammatory arthritis Hyperlipidemia AML (acute myeloblastic leukemia) (HCC) Jhony Chi is a 75 y.o. male with past medical history significant for florentino nary artery disease status post CABG (09/05, SALCEDO to LAD, SVG to OM, SVG to RPDA , at [facility]), prior atrial fibrillation (currently has Linq cabrera ce), hypertension and recently diagnosed acute monocytic leukemia who had episod es of pressure-like sensation in his epigastrium overnight and was noted to have mildly elevated troponin. EKG does not have acute ST-T wave changes. Patient does not report of chest pain at present. #Epigastric pain #Elevated troponin suggestive of type II myocardial infarction in the setting of acute monocytic leukemia # History of coronary artery disease status post CABG - Patient does not have chest pain at present and did not have acute changes in the EKG. The elevated troponin are likely secondary to type II myocardial infar ction in light of his acute severe illness. -Given the fact that the patient has low platelets (27) and the hospital stay co mplicated by hemotympanum, we would refrain from using antiplatelet agents. - Continue metoprolol tartrate 12.5 mg 2 times daily - Start Atorvastatin 40 mg daily - Will get an echocardiogram tomorrow to evaluate left ventricular wall motion a nd systolic function. -No indication for urgent coronary angiography at this time. Will continue to follow. The patient was seen, examined and management plan discussed with my attending, Dr. Ferrera. Plan was discussed with the patient's primary team. Luis Dale PGY-4 Fellow, Cardiovascular disease Pager: [phone] __ Chief Complaint: Epigastric pain and elevated troponin History of Present Illness: Jhony Chi is a 75 y.o. male with past medical h istory significant for coronary artery disease status post CABG (09/05, SALCEDO to LAD, SVG to OM, SVG to RPDA, at [facility]), prior atrial fibrillati on (currently has Linq device), hypertension and recently diagnosed acute monocy tic leukemia who had episodes of pressure-like sensation in his epigastrium and was noted to have elevated troponin. Hence, cardiology was consulted. Prior to the current hospitalization, patient had gone to his dental appliance mechanic offic e and was found to have abnormal labs with elevated white blood cell count of 54 ,000 with blasts. Heme onc referral was done and patient underwent bone marrow biopsy with preliminary results showing acute monocytic leukemia. Hence, the pa grayson was admitted on 02/06/2020. Patient is currently being managed by the heme -onc team with PRBC and platelet transfusion as well as consideration for chemot herapy. His hospital stay has been complicated by hemotympanum that is being ma naged conservatively. Overnight, the patient reported epigastric band like sens ation similar to his prior episode of indigestion. Patient was given a GI cockt ail after which his symptoms seem decreased. However, troponin was ordered and came back positive at 0.69-->0/74-->0.64. Patient was seen and examined at bedside. At present, he does not have chest pa in, epigastric pain, shortness of breath, palpitation, orthopnea, PND, dizziness , lightheadedness/syncope, lower extremity swelling, fever, chills. Before this hospitalization, patient reports that he can walk about [place] mile [place] without having to stop because of shortness of breath or chest pain. H owever, when he tries to overexert himself, he gets winded pretty easily. He al so reports of daytime sleepiness, tiredness, fatigue and has never been evaluate d for obstructive sleep apnea. Medical History: Diagnosis Date AML (acute myeloblastic leukemia) (HCC) CAD (coronary artery disease) Diastolic dysfunction Hyperlipidemia Inflammatory arthritis Paroxysmal A-fib (HCC) Surgical History: Procedure Laterality Date CORONARY ARTERY BYPASS GRAFT 08/2018 CARDIAC CATHERIZATION COLOSTOMY HX HERNIA REPAIR Left REVISION COLOSTOMY Family History Problem Relation Age of Onset Cancer Sister Heart Disease Brother Social History Socioeconomic History Marital status: Not on file Spouse name: Not on file Number of children: Not on file Years of education: Not on file Highest education level: Not on file Occupational History Not on file Tobacco Use Smoking status: Former Smoker Packs/day: 3.00 Years: 30.00 Pack years: 90.00 Types: Cigarettes Smokeless tobacco: Never Used Substance and Sexual Activity Alcohol use: Not Currently Drug use: Never Sexual activity: Not on file Other Topics Concern Not on file Social History Narrative Lives with 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 Medications: Scheduled Meds:acyclovir (ZOVIRAX) tablet 400 mg, 400 mg, Oral, BID allopurinoL (ZYLOPRIM) tablet 300 mg, 300 mg, Oral, QDAY cefuroxime (CEFTIN) tablet 250 mg, 250 mg, Oral, BID [START ON 02/09/2020] fluconazole (DIFLUCAN) tablet 200 mg, 200 mg, Oral, QDAY hydroxyurea (HYDREA) capsule 2,000 mg, 2,000 mg, Oral, BID melatonin tablet 10-20 mg, 10-20 mg, Oral, QHS metoprolol tartrate (LOPRESSOR) tablet 12.5 mg, 12.5 mg, Oral, BID oxymetazoline (AFRIN) 0.05 % nasal spray 2 spray, 2 spray, Each Nostril, ONCE simethicone (MYLICON) chew tablet 80 mg, 80 mg, Oral, ONCE sodium chloride PF 0.9% flush 5-10 mL, 5-10 mL, Flush, FLUSH TID tamsulosin (FLOMAX) capsule 0.4 mg, 0.4 mg, Oral, QDAY after breakfast Continuous Infusions: PRN and Respiratory Meds:acetaminophen Q6H PRN, alteplase PRN (Brand Recorder from Rx), alum/mag hydroxide/simeth Q6H PRN, magnesium sulfate 4 g/50 mL PRN, oxymetazoli ne BID PRN, potassium chloride in water PRN (Brand Recorder from Rx) OR potassium c hloride SR PRN (Brand Recorder from Rx), prochlorperazine Q6H PRN OR prochlorperazi ne Q6H PRN, senna/docusate QDAY PRN, simethicone Q6H PRN, sodium chloride 0.9 % TKO infusion PRN, sodium chloride 0.9% irrigation bottle PRN, sodium phosphate IVPB PRN (Brand Recorder from Rx), traMADoL Q6H PRN Review of Systems: All other systems reviewed and are negative. Physical Exam: Vital Signs: Last Filed In 24 Hours Vital Signs: 24 Hour Range BP: (P) 142/74 (02/07 1538) Temp: (P) 37.7 C (99.9 F) (02/07 1538) Pulse: (P) 93 (02/07 1538) Respirations: (P) 22 PER MINUTE (02/07 1538) SpO2: (P) 96 % (02/07 1538) BP: (97-170)/(47-80) Temp: [36.7 C (98.1 F)-37.9 C (100.2 F)] Pulse: [61-100] Respirations: [18 PER MINUTE-22 PER MINUTE] SpO2: [93 %-97 %] Intake/Output Summary (Last 24 hours) at 02/08/2020 1602 Last data filed at 02/08/2020 1509 Gross per 24 hour Intake 3578.83 ml Output 2625 ml Net 953.83 ml Physical Exam GENERAL: The patient is well developed, well nourished, resting comfortably and in no distress. HEENT: No abnormalities of the visible scar-nasopharynx, conjunctiva or sclera ar e noted. NECK: There is no jugular venous distension. Carotids are palpable and without b ruits. There is no thyroid enlargement. Chest: Lung mcdonald are clear to auscultation. Minimal crackles over the lung bas e. CV: There is a regular rhythm. The first and second heart sounds are normal. The re are no murmurs, gallops or rubs. ABD: The abdomen is soft and supple with normal bowel sounds. There is no hepato splenomegaly, ascites, tenderness, masses or bruits. Neuro: There are no focal motor defects. Ext: Mild pitting edema present on bilateral lower extremities. Lab/Radiology/Other Diagnostic Tests: CBC w/Diff Lab Results Component Value Date/Time WBC 68.2 (HH) 02/08/2020 02:34 AM RBC 2.57 (L) 02/08/2020 02:34 AM HGB 8.3 (L) 02/08/2020 02:34 AM HCT 25.1 (L) 02/08/2020 02:34 AM MCV 97.5 02/08/2020 02:34 AM MCH 32.2 02/08/2020 02:34 AM MCHC 33.0 02/08/2020 02:34 AM RDW 18.0 (H) 02/08/2020 02:34 AM PLTCT 27 (L) 02/08/2020 02:34 AM MPV 7.9 02/08/2020 02:34 AM Lab Results Component Value Date/Time ANC 10.23 (H) 02/08/2020 02:34 AM Comprehensive Metabolic Profile Lab Results Component Value Date/Time NA 141 02/08/2020 02:34 AM K 3.9 02/08/2020 02:34 AM CL 110 02/08/2020 02:34 AM CO2 22 02/08/2020 02:34 AM GAP 9 02/08/2020 02:34 AM BUN 28 (H) 02/08/2020 02:34 AM CR 1.79 (H) 02/08/2020 02:34 AM GLU 127 (H) 02/08/2020 02:34 AM Lab Results Component Value Date/Time CA 8.1 (L) 02/08/2020 02:34 AM PO4 5.2 (H) 02/08/2020 02:34 AM ALBUMIN 3.5 02/08/2020 02:34 AM TOTPROT 6.2 02/08/2020 02:34 AM ALKPHOS 129 (H) 02/08/2020 02:34 AM AST 37 02/08/2020 02:34 AM ALT 26 02/08/2020 02:34 AM TOTBILI 1.4 (H) 02/08/2020 02:34 AM GFR 37 (L) 02/08/2020 02:34 AM GFRAA 45 (L) 02/08/2020 02:34 AM Thyroid Studies No results found for: TSH Lab Results Component Value Date/Time TNI 0.64 (H) 02/08/2020 06:20 AM TNI 0.74 (H) 02/08/2020 02:34 AM TNI 0.69 (H) 02/08/2020 01:00 AM ECG: Normal sinus rhythm at 90/minutes, poor progression of R waves which could suggest prior anterior infarct, no acute ST-T wave changes. Echocardiogram: Recent (12/2019) echocardiogram performed at outside hospital neel wed LVEF of 55 to 60% Chest X-Ray: Bilateral reticular and airspace opacities, which may represent pul monary edema or atypical infection. PELON Ybarra Associated attestation - Ross Ferrera MD - 02/08/2020 11:31 PM CDT ATTESTATION I personally performed the guardado portions of the E/M visit, discussed case with th e CV fellow and concur with documentation of history, physical exam, assessment, and treatment plan unless otherwise noted. I have made additions and correctio ns to the note as needed. Mr. Chi is an unfortunate 75-year-old gentleman who is admitted to for ac francis monocytic leukemia. On admission his WBC count is 68,000, hemoglobin is 8.3 and platelet count is 27,000. He is suffered a spontaneous post tympanic hemor rhage treated with platelets. He has a history of coronary artery disease with bypass surgery in 2018, paroxys mal atrial fibrillation, hypertension. He has a Linq implantable loop recorder in place to monitor his atrial fibrillation. On admission he was found to have an elevated troponin of 0.64-0.74. He does not have chest pain. He has not had angina since his bypass. He usuall y presented with dyspnea rather than angina. He has had some dyspnea recently w hich may accompany his anemia and leukemia. Not clear if this is type II NSTEMI from coronary disease or insignificant tropo myron elevation We will obtain an echocardiogram tomorrow. LV function will help determine her response Did not have indication for a stress test at this point. He is not a candidate for angiogram or intervention with his profound thrombocytopenia and his new zohaib gnosis of leukemia. We will follow with you Staff name: Ross Ferrera MD Date: 02/08/2020 * Saturnino Jaime MD - 02/06/2020 8:47 PM CDT Associated Order(s): CONSULT OTOLARYNGOLOGY (ENT) PHYSICIAN Otolaryngology/Head and Neck Surgery Consult Patient: Jhony Chi Admission Date: 02/06/2020, LOS: 0 days Admission Diagnosis: Acute leukemia not having achieved remission (HCC) [C95.00] Date of Service: February 06, 2020 Reason for Consult: left hemotympanum ASSESSMENT/PLAN: 75 y.o. male with CAD s/p CABG, atrial fibrillation, and HLD wh o was admitted on 02/05 for further management of newly diagnosed acute myeloid l eukemia. The patient has evidence of left hemotympanum on exam, likely spontaneo us in the setting of thrombocytopenia noted on labs prior to admission, though h is tympanic membrane is intact, and the patient has no concerning symptoms relat ed to this exam finding. - No acute intervention per ENT. - Recommend correction of thrombocytopenia (platelet goal > 50) for hemotympanum, and treatment of underlying leukemic disease per Primary. - Recommend patient follow-up with ENT in 6-8 weeks to ensure resolution of hemo tympanum on the left and middle ear effusion on the right. This can be scheduled by calling at the time of discharge, or the patient can follow-u p with a local ENT provider if preferred. Will discuss with staff. Please page with additional questions or concerns stephanie jimenez inpatient stay. Stacy Barton MD Otolaryngology Resident, PGY-2 ATTESTATION I personally performed the guardado portions of the E/M visit, discussed case with re sident and concur with resident documentation of history, physical exam, assessm ent, and treatment plan unless otherwise noted. This is a 75 year old male with heart disease admitted for possible acute leukemia. Pt noted to have a hemotym panum on admission. + BM biopsy consistent with acute myeloid leukemia. He not ed fullness in both ears the day before admission that partially cleared on the right, but persisted on the left. ENT consult requested to evaluate his ears. Exam reveals right partial middle ear effusion and left hemotympanum. Nasal exa m without masses or bleeding. Recommend eustachian tube treatment with saline n lance sprays and decongestants if tolerated given his cardiac history. He should follow up with otology after discharge. -- JDG. Staff name: Saturnino Jaime MD Date: 02/07/2020 HPI: Jhony Chi is a 75 y.o. male with CAD s/p CABG, atrial fibrillation, an d HLD who was admitted on 02/05 given concern for acute leukemia. ENT is consulte d for evaluation of hemotympanum noted on admission exam. The patient states megan t he went to his dental appliance mechanic's office this week for routine lab studies and was subsequently referred to a supervisor steffen house/oncologist due to abnormal findings (WB C 54.5, Hgb 8, platelet 26 with blasts and atypical monocytes). [Per chart revie w, the patient had platelets < 50,000 in October 2019 and December 2019 as well.] Bone marrow biopsy obtained prior to his admission was consistent with acute myeloid leukemia on preliminary report. The patient states that he has been struggling with fatigue since his CABG in 2018 but has otherwise had no major issues. He noted onset of fullness in both ears last night, which seemed to partially clear on the right by today but was still present on the left. Due to this, he endorses some muffled hearing but denies issues with hearing prior to this. He denies otalgia and otorrhea. He has chronic tinnitus that is unchanged. He denies vertigo and endorses some occasional unsteadiness/lightheadedness when he moves from a seated to standing position. He has no history of otologic disease or surgeries and denies recent head trauma or falls. He denies taking blood thinners or anticoagulants at this time. Medical History: Diagnosis Date AML (acute myeloblastic leukemia) (HCC) CAD (coronary artery disease) Diastolic dysfunction Hyperlipidemia Inflammatory arthritis Paroxysmal A-fib (HCC) Surgical History: Procedure Laterality Date CORONARY ARTERY BYPASS GRAFT 08/2018 CARDIAC CATHERIZATION COLOSTOMY HX HERNIA REPAIR Left REVISION COLOSTOMY Medications: No current facility-administered medications on file prior to encounter. No current outpatient medications on file prior to encounter. Allergies: Patient has no known allergies. 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 12 point review of systems was otherwise neg ative except as per HPI. Vitals: Vital Signs: Last Filed In 24 Hours Vital Signs: 24 Hour Range BP: 166/57 (02/05 1923) Temp: 36.8 C (98.3 F) (02/06 1920) Pulse: 83 (02/05 1923) Respirations: 18 PER MINUTE (02/06 1920) SpO2: 95 % (02/06 1920) Height: 182.9 cm (72") (02/05 2122) BP: (120-166)/(54-61) Temp: [36.8 C (98.3 F)] Pulse: [78-84] Respirations: [18 PER MINUTE] SpO2: [95 %] Intake/Output: No intake or output data in the 24 hours ending 02/06/202135 Physical Exam: General: Awake, alert, NAD Head: Normocephalic, atraumatic Eyes: EOM intact grossly, vision grossly intact, conjunctivae clear Ears: Auricles without lesions, EAC clear bilaterally, right TM slightly full wi th middle ear effusion but no perforation, left TM slightly full with hemotympan um but no perforation, patient unable to auto-insufflate ears bilaterally, heari ng intact to verbal communication, no ecchymosis or tenderness over mastoids liborio aterally Nose: Nares patent, no drainage, septum midline and no lesions observed on anter ior rhinoscopy Oral Cavity/Oropharynx: MMM, pink and clear, fair dentition, no masses or lesion s visualized Neck: Supple, flat, trachea midline, no masses or cervical lymphadenopathy 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 ADMISSION DATE: 02/06/2020 DAYS ADMITTED: LOS: 17 days Todays Date: 02/23/2020 Plan *Patient is planning on discharging home today with assistance from family. *ARMANI spoke with Lisa at [facility] out patient lab fax [phone] to verify that lab orders were received. Lisa reque sted [facility] with Dr Abrams. Lab order faxed ATTN: Me bedoya fax [phone] per Lisa's request. Patient to walk in for labs betwe en 8:00AM and noon. *Patient is scheduled to see Dr Abrams on 02/26/20 at 3:00PM. *NCM verbally discussed discharge plan with patient via telephone and added all information to AVS. Interventions ? Support ? Info or Referral ? Discharge Planning Discharge Planning: Other ? Medication Needs Medication Needs: Other *NCM spoke with Eliza at [facility] pharmacy [phone] and verified that all scripts have been received and will be shipped out overnight today. *Medications being shipped include: Levaquin Posaconazole Allopurinonol Amlodipine Acyclovir Tamsulosin ? Financial ? Legal ? Other Disposition ? Expected Discharge Date Expected Discharge Date: 02/23/20 Expected Discharge Time: 1400 ? Transportation Does the patient need discharge transport arranged?: No Transportation Name, Phone and Availability #1: (daughter Melissa) Does the patient use Medicaid Transportation?: No ? Next Level of Care (Acute Psych discharges only) ? Discharge Disposition Durable Medical Equipment No service has been selected for the patient. Destination No service has been selected for the patient. Home Care No service has been selected for the patient. Dialysis/Infusion No service has been selected for the patient. Lucie MENJIVAR, naval gunfire liaison officer [phone] * Care Plan - Kenny Ferguson - 02/21/2020 9:53 PM CDT Discussed with patient their plan of care. Patient verbalized understanding. Problem: Discharge Planning Goal: Knowledge regarding plan of care Outcome: Goal Ongoing Problem: Infection, Risk of Goal: Absence of infection Outcome: Goal Ongoing Goal: Knowledge of Infection Control Procedures Outcome: Goal Ongoing Problem: Falls, High Risk of Goal: Absence of falls-Adult Patient Outcome: Goal Ongoing Goal: Absence of Falls-Pediatric patient Outcome: Goal Ongoing * Case Mgmt DC Plan - Lucie Villasenor RN - 02/20/2020 12:00 PM CDT Case Management Progress Note NAME:Jhony Chi :1944 AGE: 75 y.o. ADMISSION DATE: 02/06/2020 DAYS ADMITTED: LOS: 14 days Todays Date: 02/20/2020 Plan Patient is planning to discharge home with assistance from family on Sunday if medically stable. Interventions ? Support ? Info or Referral ? Discharge Planning Discharge Planning: Other ? Medication Needs Medication Needs: Other *SHARMAINE spoke with Gypsy Baker RN with [employer] Cyndy Rice [phone] [facility] and faxed script for posaconazole to Cyndy Rice fax [phone]. Per Josiah Baker, [facility] pharmacy will over night partial fill of posa on Sunday02/23/20 to patient's home. When the remainder of the script is available to fill, they will over night it to patient. *[facility] faxed all needed discharge scripts to Gypsy Baker RN at [facility] for ARN P to prescribe through [facility]. [facility] is closed on Mondays. Medications jerad l be filled through [facility] and mailed to patient. [facility] will continue to [facility] for discharge planning. ? Financial ? Legal ? Other Disposition ? Expected Discharge Date Expected Discharge Date: 02/23/20 Expected Discharge Time: 1400 ? Transportation Does the patient need discharge transport arranged?: No Transportation Name, Phone and Availability #1: (daughter Melissa) Does the patient use Medicaid Transportation?: No ? Next Level of Care (Acute Psych discharges only) ? Discharge Disposition Durable Medical Equipment No service has been selected for the patient. [facility] Destination No service has been selected for the patient. Home Care No service has been selected for the patient. [facility] Dialysis/Infusion No service has been selected for the patient. Lucie MENJIVAR, naval gunfire liaison officer [phone] * Case Mgmt DC Plan - Lucie Villasenor RN - 02/18/2020 1:33 PM CDT Case Management Progress Note NAME:Jhony Chi :1944 AGE: 75 y.o. ADMISSION DATE: 02/06/2020 DAYS ADMITTED: LOS: 12 days Todays Date: 02/18/2020 Plan Patient is planning to discharge home with assistance from family when medically stable. Patient would like to continue out patient care closer to home at [facility] in [place]. Interventions ? Support ? Info or Referral ? Discharge Planning Discharge Planning: Other *[facility] spoke with Dr Abrams's office. Dr Abrams is willing to see patient next week o n 02/26/20 at 3:00 PM to establish care in [place]. Care will be trans ferred to another physician when Dr Abrams moves to [place]. Next is the earliest appointment they have available with any physician. *Weekly labs can be drawn at [facility] out patient lab fax [phone]. Orders will need to be faxed prior to discharge. N CM will continue to follow for discharge planning. ? Medication Needs Medication Needs: Other ? Financial ? Legal ? Other Disposition ? Expected Discharge Date Expected Discharge Date: 02/19/20 Expected Discharge Time: 1400 ? Transportation Does the patient need discharge transport arranged?: No Transportation Name, Phone and Availability #1: (daughter Melissa) Does the patient use Medicaid Transportation?: No ? Next Level of Care (Acute Psych discharges only) ? Discharge Disposition Durable Medical Equipment No service has been selected for the patient. [facility] Destination No service has been selected for the patient. Home Care No service has been selected for the patient. [facility] Dialysis/Infusion No service has been selected for the patient. Lucie MENJIVAR, naval gunfire liaison officer [phone] * Case Mgmt DC Plan - Lucie Villasenor RN - 02/18/2020 9:54 AM CDT Case Management Progress Note NAME:Jhony Chi :1944 AGE: 75 y.o. ADMISSION DATE: 02/06/2020 DAYS ADMITTED: LOS: 12 days Todays Date: 02/18/2020 Plan Patient is planning on discharging home with assistance from family when medical ly stable. Interventions ? Support ? Info or Referral ? Discharge Planning Discharge Planning: Other ? Medication Needs Medication Needs: Other *NCM left [facility] with [facility] Department [phone] ex [phone] regarding approval status for consult to Dr Cameron Abrams. *NCM spoke with CHINA Mcwilliams at Dr Cameron Abrams's office [phone] fax [phone] Abrams and scheduling appointment. Per Poppy, Dr Abrams is not taking new patient's because he is moving to [place]. Poppy is going to speak with her nurse nursery manager about how they are handling new referrals due to Dr Abrams moving and short staffing in general due to COVID 19. *ARMANI discussed patient's need for frequent labs and transfusions. Per Poppy. [facility] has a shortage of RBCs currently. All irradiated blood products are brandie pped from [place], should they be needed and only for urgent, critical needs. N CM to discuss options with acute leuk team and will continue to follow for disch arge planning. ? Financial ? Legal ? Other Disposition ? Expected Discharge Date Expected Discharge Date: 02/19/20 Expected Discharge Time: 1400 ? Transportation Does the patient need discharge transport arranged?: No Transportation Name, Phone and Availability #1: (daughter Melissa) Does the patient use Medicaid Transportation?: No ? Next Level of Care (Acute Psych discharges only) ? Discharge Disposition Durable Medical Equipment No service has been selected for the patient. [facility] Destination No service has been selected for the patient. Home Care No service has been selected for the patient. Dialysis/Infusion No service has been selected for the patient. Lucie MENJIVAR RN Case Management [phone] * Care Plan - Abhijeet Ryan RN - 02/14/2020 11:19 AM CDT Problem: Discharge Planning Goal: Participation in plan of care Outcome: Goal Ongoing Goal: Knowledge regarding plan of care Outcome: Goal Ongoing Goal: Prepared for discharge Outcome: Goal Ongoing Problem: Infection, Risk of Goal: Absence of infection Outcome: Goal Ongoing Problem: Infection, Risk of, Central Venous Catheter-Associated Bloodstream Infe ction Goal: Absence of CVC Associated Bloodstream infection Outcome: Goal Ongoing Problem: Falls, High Risk of Goal: Absence of falls-Adult Patient Outcome: Goal Ongoing Goal: Absence of Falls-Pediatric patient Outcome: Goal Ongoing * Care Plan - Britney Luna RN - 02/12/2020 3:10 PM CDT Reviewed plan of care with patient. * Care Plan - Teresa Alcantara RN - 02/12/2020 12:20 AM CDT Patient actively involved in plan of care. Problem: Discharge Planning Goal: Participation in plan of care 02/12/2020 0020 by Teresa Alcantara RN Outcome: Goal Ongoing 02/12/2020 0020 by Teresa Alcantara RN Outcome: Goal Ongoing Goal: Knowledge regarding plan of care Outcome: Goal Ongoing Goal: Prepared for discharge Outcome: Goal Ongoing Problem: Infection, Risk of Goal: Absence of infection Outcome: Goal Ongoing Goal: Knowledge of Infection Control Procedures Outcome: Goal Ongoing Problem: Infection, Risk of, Central Venous Catheter-Associated Bloodstream Infe ction Goal: Absence of CVC Associated Bloodstream infection Outcome: Goal Ongoing * Case Mgmt DC Plan - Lucie Villasenor RN - 02/11/2020 12:44 PM CDT Case Management Progress Note NAME:Jhony Chi :1944 AGE: 75 y.o. ADMISSION DATE: 02/06/2020 DAYS ADMITTED: LOS: 5 days Todays Date: 02/11/2020 Plan Patient is planning to discharge home with assistance from family when medically stable. Interventions ? Support ? Info or Referral ? Discharge Planning Discharge Planning: Other *NCM spoke to [facility] with [facility] Department [phone] ex [phone] regarding patient's care plan after discharge. Acute leukemia team to refe r patient to Dr Cameron Abrams [phone]. [facility] will request non-VA consult to Dr Abrams. *NCM left for [facility] pharmacist Marialuisa Chatman [phone] agueda jimenez to determine if Venetoclax is available through [facility] pharmacy and will continue to follow for discharge planning. *Update @ 0897* NCM spoke with Marialuisa Chatman. Venetoclax is available through [facility] pharmacy o n an outpt basis only. [facility] is unable to supply Venetoclax to patient while he is hospitalized. Once Consult to Dr Abrams is approved and patient is seen outpt, Dr Abrams may prescribe venetoclax to be filled at [facility]. NCM will continue to follow for discharge planning. Medication Needs ? Financial ? Legal ? Other Disposition ? Expected Discharge Date Expected Discharge Date: 02/20/20 Expected Discharge Time: 1400 ? Transportation Does the patient need discharge transport arranged?: No Transportation Name, Phone and Availability #1: (daughter Melissa) Does the patient use Medicaid Transportation?: No ? Next Level of Care (Acute Psych discharges only) ? Discharge Disposition Durable Medical Equipment No service has been selected for the patient. Destination No service has been selected for the patient. Home Care No service has been selected for the patient. Dialysis/Infusion No service has been selected for the patient. Lucie MENJIVAR naval gunfire liaison officer [phone] * Case Mgmt DC Plan - Lucie Villasenor, RN - 02/10/2020 11:46 AM CDT Case Management Progress Note NAME:Jhony Chi :1944 AGE: 75 y.o. ADMISSION DATE: 02/06/2020 DAYS ADMITTED: LOS: 4 days Todays Date: 02/10/2020 Plan Patient is planning to discharge home with assistance from family when medically stable. *ARAMNI spoke with ARMANI Nair with Cyndy LOPEZ at the [facility] estelle pauline plan of care and need for venetoclax. Gypsy Baker can be reached directly at [phone]. Nel Muse RN, ARMANI to assist in faxing face sheet, H&P, path report and most recent progress note to JESSICA Weathers. Cyndy is putting in an expedited, non-VA consult for oncology this AM. Once consult has been approved, the oncologist following will be able to order venetoclax. Per Gypsy Baker, there is no guarantee that the [facility] can supply this medication. *[facility] [phone] Interventions ? Support ? Info or Referral ? Discharge Planning ? Medication Needs ? Financial ? Legal ? Other Disposition ? Expected Discharge Date Expected Discharge Date: 02/20/20 Expected Discharge Time: 1400 ? Transportation Does the patient need discharge transport arranged?: No Transportation Name, Phone and Availability #1: (daughter Melissa) Does the patient use Medicaid Transportation?: No ? Next Level of Care (Acute Psych discharges only) ? Discharge Disposition Durable Medical Equipment No service has been selected for the patient. [facility] Destination No service has been selected for the patient. Home Care No service has been selected for the patient. Dialysis/Infusion No service has been selected for the patient. Lucie MENJIVAR naval gunfire liaison officer [phone] * Case Mgmt DC Plan - Lucie Villasenor RN - 02/09/2020 12:25 PM CDT Case Management Admission Assessment NAME:Jhony Chi : [birth year] AGE: 75 y.o. ADMISSION DATE: 02/06/2020 DAYS ADMITTED: LOS: 3 days Todays Date: 02/09/2020 Source of Information: Patient Plan ARMANI completed assessment with patient via phone today. Patient currently lives in [place], [place] with his Susana. Susana is in good health and will be avai lable for care assistance however she does not drive. Patient states Susana's da ughter Melissa will be available for transportation needs. Melissa is a SW for the [employer], [place]. *Patient states he fills all of [facility] at the [facility] [place], [place] [phone]. He last saw an BULL CHAIN OPERATOR at this location approx one month ago. [facility]. NCM will contact primary care office tomorrow during their regular business hours. *Acute leuk team [facility]ax [facility]. Medicatio n will likely need to be filled at [facility] and prescribed by [facility] physician. NCM will continue to follow. Patient Address/Phone [address] [facility] [address] There are no phone numbers on file. Emergency Contact No emergency contact information on file. Healthcare Directive Transportation Does the patient need discharge transport arranged?: No Transportation Name, Phone and Availability #1: (daughter Melissa) Does the patient use Medicaid Transportation?: No Expected Discharge Date Expected Discharge Date: 03/05/20 Expected Discharge Time: 1330 Living Situation Prior to Admission ? Living Arrangements Type of Residence: Home, independent Living Arrangements: Spouse/significant other Bathroom Shower / Tub: Tub/Shower Unit(with out grab bar or seat) How many levels in the residence?: 1 Can patient live on one level if needed?: Yes Assistance needed prior to admit or anticipated on discharge: No Who provides assistance or could if needed?: (spouse Susana) Are they in good health?: Yes Can support system provide 24/7 care if needed?: Yes ? Level of Function Prior level of function: Independent ? Cognitive Abilities Cognitive Abilities: Alert and Oriented, Engages in problem solving and planning , Participates in decision making, Recognizes impact of health condition on life style Financial Resources ? Coverage Primary Insurance: Medicare Secondary Insurance: VA/ Additional Coverage: VA(Patient fills all scripts at [facility]) ? Source of Income Source Of Income: SSI ? Financial Assistance Needed? *Patient may require FA for Venetoclax Psychosocial Needs ? Mental Health Mental Health History: No ? Substance Use History ? Other None Current/Previous Services ? PCP No primary care provider on file., None, None ? Pharmacy [facility] [place] - [address] [place] [id number] ? Durable Medical Equipment Durable Medical Equipment at home: Single Point Cane ? Home Health Receiving home health: In the past Agency name: (Unknown agency approx 5 yrs ago s/p ostomy) ? Hemodialysis or Peritoneal Dialysis Undergoing hemodialysis or peritoneal dialysis: No ? Tube/Enteral Feeds Receive tube/enteral feeds: No ? Infusion Receive infusions: No ? Private Duty Private duty help used: No ? Home and Community Based Services Home and community based services: No ? Benigno White Benigno White: N/A ? Hospice Hospice: No ? Outpatient Therapy PT: No OT: No BUNDLER: No ? Shelter Facility/Longterm SNF: No NH: No ? Inpatient Rehab IPR: No ? Long-Term Acute Care Hospital LTACH: No ? Acute Hospital Stay Acute Hospital Stay: No Lucie MENJIVAR, naval gunfire liaison officer [phone] * Advanced Care Planning/Resuscitation Status - Kimberley Stark MD - 02/06/2020 8:03 PM CDT Advance Care Planning/Resuscitation Status Conversation Individuals present for advance care planning conversation: attending physician, nurse and patient Pertinent details of conversation (including direct quotes from patient or surro gate): Discussed resuscitation, he would not want life sustaining machines but w ould consider cardioversion, pressors, ICU stay. No CPR or intubation Outcome of conversation: DNAR - Full Intervention Documents completed as a result of this conversation: None Other documents present, which outline patient/surrogate wishes: None Attestation? I have spent a total of 5 minutes in [id number] discussion of pat ient condition, prognosis, treatment goals, and/or advance care planning with [facility] patient and/or surrogate decision makers. documented in this encounter Plan of Treatment Date/Time Name Type Priority Associated Diag noses 02/06/2020 8:03 PM CDT HEMATOLOGIC NEOPLASMS Lab Routine GENE PANEL BY NGS BLOOD 02/07/2020 10:56 AM CDT TRANSFUSE RBC'S Blood Bank Routine 02/07/2020 10:56 AM CDT TRANSFUSE RBC'S Blood Bank Routine 02/09/2020 6:22 PM CDT TRANSFUSE APHERESIS Blood Bank Routine PLATELETS 02/09/2020 6:22 PM CDT TRANSFUSE APHERESIS Blood Bank Routine PLATELETS 02/13/2020 6:54 AM CDT TRANSFUSE APHERESIS Blood Bank Routine PLATELETS 02/13/2020 6:54 AM CDT TRANSFUSE APHERESIS Blood Bank Routine PLATELETS 02/15/2020 5:58 AM CDT TRANSFUSE APHERESIS Blood Bank Routine PLATELETS 02/15/2020 5:58 AM CDT TRANSFUSE APHERESIS Blood Bank Routine PLATELETS 02/16/2020 6:28 AM CDT TRANSFUSE APHERESIS Blood Bank Routine PLATELETS 02/16/2020 6:28 AM CDT TRANSFUSE APHERESIS Blood Bank Routine PLATELETS 02/18/2020 10:49 AM CDT CULTURE-TB (AFB) Microbiology Routine 02/18/2020 10:49 AM CDT CULTURE-FUNGAL,OTHER Microbiology Routine 02/18/2020 10:49 AM CDT CYTOLOGY SPECIMEN LABEL Pathology Routine documented as of this encounter Goals Goal Patient Associated Recent Progress Patient-Stat Aut hor Goal Type Problems ed? GOAL General No Alivia Limon RN Note: Stay healthy documented as of this encounter Procedures Comments Procedure Name Priority Date/Time Associated Diag nosis TRANSFUSE RBC'S Routine 02/23/2020 9:19 AM CDT HC ABO GROUP Routine 02/23/2020 2:54 AM CDT HC COMPREHENSIVE Routine 02/23/2020 METABOLIC PANEL (CH12CT) 2:00 AM CDT HC CBC W AUTOMATED DIFF Routine 02/23/2020 (HPDCT) 2:00 AM CDT HC PHOSPHOROUS, SERUM Routine 02/23/2020 2:00 AM CDT TRANSFUSE APHERESIS Routine 02/22/2020 PLATELETS 8:21 AM CDT PREPARE APHERESIS Routine 02/22/2020 PLATELETS 3:02 AM CDT HC COMPREHENSIVE Routine 02/22/2020 METABOLIC PANEL (CH12CT) 2:14 AM CDT HC CBC W AUTOMATED DIFF Routine 02/22/2020 (HPDCT) 2:14 AM CDT HC PHOSPHOROUS, SERUM Routine 02/22/2020 2:14 AM CDT HC COMPREHENSIVE Routine 02/21/2020 METABOLIC PANEL (CH12CT) 2:04 AM CDT HC CBC W AUTOMATED DIFF Routine 02/21/2020 (HPDCT) 2:04 AM CDT HC PHOSPHOROUS, SERUM Routine 02/21/2020 2:04 AM CDT HC BILIRUBIN DIRECT Add on 02/21/2020 2:04 AM CDT US ABDOMEN COMPLETE Routine 02/20/2020 1:40 PM CDT TRANSFUSE RBC'S Routine 02/20/2020 9:53 AM CDT HC PHOSPHOROUS, SERUM Routine 02/20/2020 (PO4CT) 2:05 AM CDT HC COMPREHENSIVE Routine 02/20/2020 METABOLIC PANEL (CH12CT) 2:05 AM CDT HC CBC W AUTOMATED DIFF Routine 02/20/2020 (HPDCT) 2:05 AM CDT TRANSFUSE APHERESIS Routine 02/19/2020 PLATELETS 8:45 AM CDT PREPARE APHERESIS Routine 02/19/2020 PLATELETS 3:05 AM CDT HC PHOSPHOROUS, SERUM Routine 02/19/2020 (PO4CT) 2:00 AM CDT HC COMPREHENSIVE Routine 02/19/2020 METABOLIC PANEL (CH12CT) 2:00 AM CDT HC CBC W AUTOMATED DIFF Routine 02/19/2020 (HPDCT) 2:00 AM CDT HC URIC ACID Routine 02/19/2020 2:00 AM CDT COVID-19 (SARS-COV-2) PCR Specimen 02/18/2020 in Lab 10:49 AM CDT HC ASPERGILLUS Routine 02/18/2020 GALACTOMANNAN AG 10:49 AM CDT HC PNEU JIROVECI QT Routine 02/18/2020 PCR(PJPQT) 10:49 AM CDT HC RVP PANEL NASAL SINGLE Routine 02/18/2020 RVPN 10:49 AM CDT HC HSV PCR Routine 02/18/2020 10:49 AM CDT [facility] [facility] Specimen 02/18/2020 in Lab 10:49 AM CDT HC GRAM STAIN 02/18/2020 10:49 AM CDT HC CULTURE-LOWER RESP Routine 02/18/2020 10:49 AM CDT HC CMV DNA QN BY PCR Routine 02/18/2020 10:49 AM CDT HC SPECIAL [...] Routine 02/18/2020 PLATELETS 2:43 AM CDT HC PHOSPHOROUS, SERUM Routine 02/18/2020 (PO4CT) 2:10 AM CDT HC COMPREHENSIVE Routine 02/18/2020 METABOLIC PANEL (CH12CT) 2:10 AM CDT HC CBC W AUTOMATED DIFF Routine 02/18/2020 (HPDCT) 2:10 AM CDT HC PHOSPHOROUS, SERUM Routine 02/17/2020 (PO4CT) 3:43 PM CDT TRANSFUSE RBC'S Routine 02/17/2020 10:03 AM CDT VT CONSLTJ&REPRT SLIDES 02/17/2020 PREPARED ELSEWHERE 7:37 AM CDT HC ABO GROUP Routine 02/17/2020 4:27 AM CDT HC PHOSPHOROUS, SERUM Routine 02/17/2020 (PO4CT) 2:22 AM CDT HC COMPREHENSIVE Routine 02/17/2020 METABOLIC PANEL (CH12CT) 2:22 AM CDT HC CBC W AUTOMATED DIFF Routine 02/17/2020 (HPDCT) 2:22 AM CDT HC PHOSPHOROUS, SERUM Routine 02/16/2020 (PO4CT) 4:22 PM CDT PREPARE APHERESIS Routine 02/16/2020 PLATELETS 4:29 AM CDT HC PHOSPHOROUS, SERUM Routine 02/16/2020 (PO4CT) 3:40 AM CDT HC COMPREHENSIVE Routine 02/16/2020 METABOLIC PANEL (CH12CT) 3:40 AM CDT HC CBC W AUTOMATED DIFF Routine 02/16/2020 (HPDCT) 3:40 AM CDT HC VRE SCREEN Routine 02/16/2020 3:40 AM CDT HC PHOSPHOROUS, SERUM Routine 02/15/2020 (PO4CT) 2:50 PM CDT COVID-19 (SARS-COV-2) PCR STAT 02/15/2020 2:50 PM CDT HC RVP PANEL NASAL SINGLE 02/15/2020 RVPN 2:50 PM CDT HC FUNGITELL (FUNGT) Routine 02/15/2020 12:35 PM CDT HC ASPERGILLUS Routine 02/15/2020 GALACTOMANNAN AG 12:[address] CHEST WO CONTRAST ORTEGA 02/15/2020 12:25 PM CDT CHEST SINGLE VIEW Routine 02/15/2020 9:10 AM CDT PREPARE APHERESIS Routine 02/15/2020 PLATELETS 4:14 AM CDT HC PHOSPHOROUS, SERUM Routine 02/15/2020 (PO4CT) 3:10 AM CDT HC COMPREHENSIVE Routine 02/15/2020 METABOLIC PANEL (CH12CT) 3:10 AM CDT HC CBC W AUTOMATED DIFF Routine 02/15/2020 (HPDCT) 3:10 AM CDT HC PHOSPHOROUS, SERUM Routine 02/14/2020 (PO4CT) 4:53 PM CDT HC PHOSPHOROUS, SERUM Routine 02/14/2020 (PO4CT) 3:16 AM CDT HC COMPREHENSIVE Routine 02/14/2020 METABOLIC PANEL (CH12CT) 3:16 AM CDT HC CBC W AUTOMATED DIFF Routine 02/14/2020 (HPDCT) 3:16 AM CDT HC PHOSPHOROUS, SERUM Routine 02/13/2020 (PO4CT) 4:45 PM CDT HC GRAM STAIN 02/13/2020 6:36 AM CDT HC CULTURE-LOWER RESP Routine 02/13/2020 6:36 AM CDT PREPARE APHERESIS Routine 02/13/2020 PLATELETS 5:16 AM CDT HC PHOSPHOROUS, SERUM Routine 02/13/2020 (PO4CT) 4:40 AM CDT HC COMPREHENSIVE Routine 02/13/2020 METABOLIC PANEL (CH12CT) 4:40 AM CDT HC CBC W AUTOMATED DIFF Routine 02/13/2020 (HPDCT) 4:40 AM CDT HC MAGNESIUM Routine 02/13/2020 4:40 AM CDT HC PHOSPHOROUS, SERUM Routine 02/12/2020 (PO4CT) 4:00 PM CDT TRANSFUSE RBC'S Routine 02/12/2020 9:48 AM CDT HC PHOSPHOROUS, SERUM Routine 02/12/2020 (PO4CT) 4:00 AM CDT HC COMPREHENSIVE Routine 02/12/2020 METABOLIC PANEL (CH12CT) 4:00 AM CDT HC CBC W AUTOMATED DIFF Routine 02/12/2020 (HPDCT) 4:00 AM CDT HC PTT(APTT) Routine 02/12/2020 4:00 AM CDT HC PT(INR) Routine 02/12/2020 4:00 AM CDT HC FIBRINOGEN Routine 02/12/2020 4:00 AM CDT HC URIC ACID Routine 02/12/2020 4:00 AM CDT HC MAGNESIUM Routine 02/12/2020 4:00 AM CDT HC LD(LDH;LACTIC Routine 02/12/2020 DEHYDROGENASE) 4:00 AM CDT TRANSFUSE APHERESIS Routine 02/12/2020 PLATELETS 1:39 AM CDT PREPARE APHERESIS Routine 02/11/2020 PLATELETS 8:31 PM CDT HC PHOSPHOROUS, SERUM Routine 02/11/2020 (PO4CT) 4:00 PM CDT HC BASIC METABOLIC PANEL Routine 02/11/2020 (CH7CT) 4:00 PM CDT HC CBC W AUTOMATED DIFF Routine 02/11/2020 (HPDCT) 4:00 PM CDT HC PTT(APTT) Routine 02/11/2020 4:00 PM CDT HC PT(INR) Routine 02/11/2020 4:00 PM CDT HC FIBRINOGEN Routine 02/11/2020 4:00 PM CDT HC URIC ACID Routine 02/11/2020 4:00 PM CDT HC PHOSPHOROUS, SERUM Routine 02/11/2020 (PO4CT) 2:45 AM CDT HC COMPREHENSIVE Routine 02/11/2020 METABOLIC PANEL (CH12CT) 2:45 AM CDT HC CBC W AUTOMATED DIFF Routine 02/11/2020 (HPDCT) 2:45 AM CDT HC PTT(APTT) Routine 02/11/2020 2:45 AM CDT HC PT(INR) Routine 02/11/2020 2:45 AM CDT HC FIBRINOGEN Routine 02/11/2020 2:45 AM CDT HC URIC ACID Routine 02/11/2020 2:45 AM CDT HC MAGNESIUM Routine 02/11/2020 2:45 AM CDT HC LD(LDH;LACTIC Routine 02/11/2020 DEHYDROGENASE) 2:45 AM CDT TRANSFUSE RBC'S Routine 02/11/2020 1:08 AM CDT TRANSFUSE APHERESIS Routine 02/10/2020 PLATELETS 8:53 PM CDT HC ABO GROUP Routine 02/10/2020 6:27 PM CDT PREPARE APHERESIS Routine 02/10/2020 PLATELETS 5:49 PM CDT HC PHOSPHOROUS, SERUM Routine 02/10/2020 (PO4CT) 4:24 PM CDT HC BASIC METABOLIC PANEL Routine 02/10/2020 (CH7CT) 4:24 PM CDT HC CBC W AUTOMATED DIFF Routine 02/10/2020 (HPDCT) 4:24 PM CDT HC PTT(APTT) Routine 02/10/2020 4:24 PM CDT HC PT(INR) Routine 02/10/2020 4:24 PM CDT HC FIBRINOGEN Routine 02/10/2020 4:24 PM CDT HC URIC ACID Routine 02/10/2020 4:24 PM CDT COVID-19 (SARS-COV-2) PCR Routine 02/10/2020 11:58 AM CDT HC PHOSPHOROUS, SERUM Routine 02/10/2020 (PO4CT) 2:40 AM CDT HC COMPREHENSIVE Routine 02/10/2020 METABOLIC PANEL (CH12CT) 2:40 AM CDT HC CBC W AUTOMATED DIFF Routine 02/10/2020 (HPDCT) 2:40 AM CDT HC PTT(APTT) Routine 02/10/2020 2:40 AM CDT HC PT(INR) Routine 02/10/2020 2:40 AM CDT HC FIBRINOGEN Routine 02/10/2020 2:40 AM CDT HC URIC ACID Routine 02/10/2020 2:40 AM CDT HC MAGNESIUM Routine 02/10/2020 2:40 AM CDT HC LD(LDH;LACTIC Routine 02/10/2020 DEHYDROGENASE) 2:40 AM CDT PREPARE APHERESIS Routine 02/09/2020 PLATELETS 5:59 PM CDT CULTURE-BLOOD Routine 02/09/2020 W/SENSITIVITY 5:23 PM CDT HC PHOSPHOROUS, SERUM Routine 02/09/2020 (PO4CT) 4:19 PM CDT HC BASIC METABOLIC PANEL Routine 02/09/2020 (CH7CT) 4:19 PM CDT HC CBC W AUTOMATED DIFF Routine 02/09/2020 (HPDCT) 4:19 PM CDT CULTURE-BLOOD Routine 02/09/2020 W/SENSITIVITY 4:19 PM CDT HC CULTURE-BLOOD Routine 02/09/2020 4:19 PM CDT HC PTT(APTT) Routine 02/09/2020 4:19 PM CDT HC PT(INR) Routine 02/09/2020 4:19 PM CDT HC FIBRINOGEN Routine 02/09/2020 4:19 PM CDT HC URIC ACID Routine 02/09/2020 4:19 PM CDT 2-D + DOPPLER Routine 02/09/2020 ECHOCARDIOGRAM 2:54 PM CDT ABDOMEN AP ONLY ORTEGA 02/09/2020 8:45 AM CDT HC VRE SCREEN Routine 02/09/2020 7:34 AM CDT HC PHOSPHOROUS, SERUM Routine 02/09/2020 (PO4CT) 2:12 AM CDT HC COMPREHENSIVE Routine 02/09/2020 METABOLIC PANEL (CH12CT) 2:12 AM CDT HC CBC W AUTOMATED DIFF Routine 02/09/2020 (HPDCT) 2:12 AM CDT HC PTT(APTT) Routine 02/09/2020 2:12 AM CDT HC PT(INR) Routine 02/09/2020 2:12 AM CDT HC FIBRINOGEN Routine 02/09/2020 2:12 AM CDT HC URIC ACID Routine 02/09/2020 2:12 AM CDT HC MAGNESIUM Routine 02/09/2020 2:12 AM CDT HC LD(LDH;LACTIC Routine 02/09/2020 DEHYDROGENASE) 2:12 AM CDT HC PHOSPHOROUS, SERUM Routine 02/08/2020 (PO4CT) 3:42 PM CDT HC BASIC METABOLIC PANEL Routine 02/08/2020 (CH7CT) 3:42 PM CDT HC CBC W AUTOMATED DIFF Routine 02/08/2020 (HPDCT) 3:42 PM CDT HC PTT(APTT) Routine 02/08/2020 3:42 PM CDT HC PT(INR) Routine 02/08/2020 3:42 PM CDT HC FIBRINOGEN Routine 02/08/2020 3:42 PM CDT HC URIC ACID Routine 02/08/2020 3:42 PM CDT TRANSFUSE APHERESIS Routine 02/08/2020 PLATELETS 8:48 AM CDT CHEST SINGLE VIEW ORTEGA 02/08/2020 6:44 AM CDT HC TROPONIN-I Routine 02/08/2020 6:20 AM CDT HC MAGNESIUM Add on 02/08/2020 6:20 AM CDT PREPARE APHERESIS Routine 02/08/2020 PLATELETS 3:41 AM CDT ECG 12-LEAD Routine 02/08/2020 3:00 AM CDT HC PHOSPHOROUS, SERUM Routine 02/08/2020 (PO4CT) 2:34 AM CDT HC COMPREHENSIVE Routine 02/08/2020 METABOLIC PANEL (CH12CT) 2:34 AM CDT HC CBC W AUTOMATED DIFF Routine 02/08/2020 (HPDCT) 2:34 AM CDT TROPONIN-I Add on 02/08/2020 2:34 AM CDT HC PTT(APTT) Routine 02/08/2020 2:34 AM CDT HC PT(INR) Routine 02/08/2020 2:34 AM CDT HC FIBRINOGEN Routine 02/08/2020 2:34 AM CDT HC URIC ACID Routine 02/08/2020 2:34 AM CDT HC LD(LDH;LACTIC Routine 02/08/2020 DEHYDROGENASE) 2:34 AM CDT TRANSFUSE RBC'S Routine 02/08/2020 2:14 AM CDT ECG 12-LEAD STAT 02/08/2020 2:10 AM CDT HC TROPONIN-I Routine 02/08/2020 1:00 AM CDT HC B-TYPE NATRIURETIC Routine 02/08/2020 PEPTIDE 1:00 AM CDT HC LIPASE Routine 02/08/2020 1:00 AM CDT HC LACTIC ACID(LACTATE) Routine 02/08/2020 1:00 AM CDT HC HEPATIC FUNCTION PANEL Routine 02/08/2020 1:00 AM CDT HC PHOSPHOROUS, SERUM Routine 02/07/2020 (PO4CT) 4:39 PM CDT HC BASIC METABOLIC PANEL Routine 02/07/2020 (CH7CT) 4:39 PM CDT HC CBC W AUTOMATED DIFF Routine 02/07/2020 (HPDCT) 4:39 PM CDT HC PTT(APTT) Routine 02/07/2020 4:39 PM CDT HC PT(INR) Routine 02/07/2020 4:39 PM CDT HC FIBRINOGEN Routine 02/07/2020 4:39 PM CDT HC URIC ACID Routine 02/07/2020 4:39 PM CDT HC URIC ACID STAT 02/07/2020 7:00 AM CDT HC PHOSPHOROUS, SERUM Routine 02/07/2020 (PO4CT) 6:00 AM CDT HC COMPREHENSIVE 02/07/2020 METABOLIC PANEL (CH12CT) 6:00 AM CDT HC CBC W AUTOMATED DIFF Routine 02/07/2020 (HPDCT) 6:00 AM CDT HC PTT(APTT) Routine 02/07/2020 6:00 AM CDT HC PT(INR) Routine 02/07/2020 6:00 AM CDT HC FIBRINOGEN Routine 02/07/2020 6:00 AM CDT HC URIC ACID Routine 02/07/2020 6:00 AM CDT HC LD(LDH;LACTIC Routine 02/07/2020 DEHYDROGENASE) 6:00 AM CDT TRANSFUSE APHERESIS Routine 02/07/2020 PLATELETS 2:36 AM CDT CONSULT IV THERAPY TEAM Routine 02/06/2020 10:06 PM CDT HC BLOOD TYPING, ABO Routine 02/06/2020 CONFIRM 91 8:42 PM CDT HC PHOSPHOROUS, SERUM Routine 02/06/2020 (PO4CT) 8:03 PM CDT HC BASIC METABOLIC PANEL Routine 02/06/2020 (CH7CT) 8:03 PM CDT VT FLOW CYTOMETRY 02/06/2020 INTERPRETATION 16/> 8:03 PM CDT MARKERS CHROMOSOMES FISH DNA Routine 02/06/2020 PROBE-BLOOD 8:03 PM CDT CHROMOSOMES BLD Add on 02/06/2020 HEMATOLOGIC 8:03 PM CDT VT BLOOD SMEAR PERIPHERAL Add on 02/06/2020 INTERP PHYS W/WRIT REPORT 8:03 PM CDT LE[place]EMIA-[place]MPH[place] PANEL 02/06/2020 BLOOD 8:03 PM CDT HC PTT(APTT) Routine 02/06/2020 8:03 PM CDT HC PT(INR) Routine 02/06/2020 8:03 PM CDT HC FIBRINOGEN Routine 02/06/2020 8:03 PM CDT HC CBC W/ AUTOMATED DIFF Routine 02/06/2020 8:03 PM CDT HC ABO GROUP Routine 02/06/2020 8:03 PM CDT HC URIC ACID Routine 02/06/2020 8:03 PM CDT HC LD(LDH;LACTIC Routine 02/06/2020 DEHYDROGENASE) 8:03 PM CDT PREPARE APHERESIS Routine 02/06/2020 PLATELETS 7:06 PM CDT HC VRE SCREEN Routine 02/06/2020 7:00 PM CDT PATHOLOGY REPORTS FROM 02/06/2020 OUTSIDE SCAN 12:00 AM CDT TELEMETRY STRIPS-SCAN 02/06/2020 12:00 AM CDT ECG-SCAN 02/06/2020 12:00 AM CDT ECG-SCAN 02/06/2020 12:00 AM CDT ECG-SCAN 02/06/2020 12:00 AM CDT PROCEDURE RECORD-SCAN 02/06/2020 12:00 AM CDT documented in this encounter Results * TRANSFUSE RBC'S (02/23/2020 9:19 AM CDT) Specimen Blood * TRANSFUSE RBC'S (02/23/2020 9:19 AM CDT) Specimen Blood * TYPE & CROSSMATCH (02/23/2020 2:54 AM CDT) Units Ordered 1 [facility] MAIN LAB Crossmatch 02/26/2020,2359 [facility] MAIN LAB Expires Record Check FOUND [facility] MAIN LAB ABO/RH(D) B POS [facility] MAIN LAB Antibody Screen NEG MAIN LAB Electronic YES MAIN LAB Crossmatch Unit Number [id number] MAIN LAB Blood Component RBC,ADSOL,LEUKO [facility] MAIN LAB Type REDUCED,IRRADIATED Unit Division 0 MAIN LAB Status OF Unit TRANSFUSED [facility] MAIN LAB Transfusion OK TO TRANSFUSE [facility] MAIN LAB Status Crossmatch COMPATIBLE,ELECTRONIC MAIN LAB Result Specimen Blood Performing Organization Address City/[facility] Number MAIN LAB [address] [place] [address] * PHOSPHORUS (02/23/2020 2:00 AM CDT) Phosphorus 4.3 2.0 - 4.5 MG/DL [facility] MAIN LAB Specimen Blood Performing Organization Address [facility] one Number MAIN LAB [address] [place] [address] * CBC AND DIFF CELLULAR THERAPEUTICS (02/23/2020 2:00 AM CDT) White Blood 2.0 (L) 4.5 - 11.0 [...] Basophil Count Specimen Blood Performing Organization Address City/[facility] one Number [facility] MAIN LAB [address] [place] [address] * COMPREHENSIVE METABOLIC PANEL CELLULAR THERAPEUTICS (02/23/2020 2:00 AM CDT) Sodium 135 (L) 137 - 147 MMOL/L [...] >60 >60 mL/min [facility] MAIN LAB Comment: [place] The eGFR is not validated f or use in drug dosing adjustments. Continue to use estimated creatinine clearance per dosing reference text. Please contact the Clinical Pharmacist for questions. eGFR >60 >60 mL/min [facility] MAIN LAB [place] Comment: The eGFR is not validated for use in drug dosing adjustments. Continue to use estimated creatinine clearance per dosing reference text. Please contact the Clinical Pharmacist for questions. Specimen Blood Performing Organization Address City/[facility] Ph one Number [facility] MAIN LAB [address] [place] [address] * TRANSFUSE APHERESIS PLATELETS (02/22/2020 8:21 AM CDT) * TRANSFUSE APHERESIS PLATELETS (02/22/2020 8:21 AM CDT) * PREPARE APHERESIS PLATELETS (02/22/2020 3:02 AM CDT) Units Ordered 1 MAIN LAB Unit Number [id number] MAIN LAB Blood Component APHERESIS PLT,LEUKO MAIN LAB Type REDUCED,IRRADIATED,2ND CONT . Unit Division 0 MAIN LAB Status OF Unit TRANSFUSED [facility] MAIN LAB Transfusion OK TO TRANSFUSE [facility] MAIN LAB Status Specimen Other (Specify) Performing Organization Address [facility] Ph one Number MAIN LAB [address] [place] [address] * PHOSPHORUS (02/22/2020 2:14 AM CDT) Pathologist [facility] Phosphorus 4.1 2.0 - 4.5 MG/DL MAIN LAB Specimen Blood Performing Organization Address [facility] one Number MAIN LAB [address] [place] [address] * CBC AND DIFF CELLULAR THERAPEUTICS (02/22/2020 2:14 AM CDT) Pathologist [facility] White Blood 2.3 (L) 4.5 - 11.0 K/UL MAIN LAB Cells RBC 2.20 (L) 4.4 - 5.5 M/UL MAIN LAB Hemoglobin 7.1 (L) 13.5 - 16.5 GM/DL MAIN LAB Hematocrit 20.3 (L) 40 - 50 % MAIN LAB MCV 91.9 80 - 100 FL MAIN LAB MCH 32.3 26 - 34 PG MAIN LAB MCHC 35.1 32.0 - 36.0 G/DL MAIN LAB RDW 15.5 (H) 11 - 15 % MAIN LAB Platelet Count 8 (LL)Comment: Value noted, 150 - 400 K/UL MAIN LAB value unchanged MPV 7.3 7 - 11 FL MAIN LAB Segmented 23 (L) 41 - 77 % [facility] MAIN LAB Neutrophils Lymphocytes 34 24 - 44 % [facility] MAIN LAB Monocytes 35 (H) 4 - 12 % MAIN LAB Eosinophil 4 0 - 5 % MAIN LAB Basophil 1 0 - 2 % MAIN LAB Metamyelocyte 1 % MAIN LAB Blast 2 % KU MAIN LAB ANISO PRESENT [facility] MAIN LAB Platelet MKD DEC MAIN LAB Estimate Absolute 0.53 (L) 1.8 - 7.0 K/UL MAIN LAB Neutrophil Count Manual Specimen Blood Performing Organization Address [facility] one Number [facility] MAIN LAB [address] [place] [address] * COMPREHENSIVE METABOLIC PANEL CELLULAR THERAPEUTICS (02/22/2020 2:14 AM CDT) Sodium 137 137 - 147 MMOL/L [facility] MAIN LAB Potassium 3.6 3.5 - 5.1 MMOL/L [facility] MAIN LAB Chloride 103 98 - 110 MMOL/L [facility] MAIN LAB Glucose 100 70 - 100 MG/DL [facility] MAIN LAB Blood Urea 21 7 - 25 MG/DL [facility] MAIN LAB Nitrogen Creatinine 1.10 0.4 - 1.24 MG/DL [facility] MAIN LAB Calcium 8.3 (L) 8.5 - 10.6 MG/DL [facility] MAIN LAB Total Protein 5.9 (L) 6.0 - 8.0 G/DL [facility] MAIN LAB Total Bilirubin 2.0 (H) 0.3 - 1.2 MG/DL K[facility] MAIN LAB Albumin 2.9 (L) 3.5 - 5.0 G/DL [facility] MAIN LAB Alk Phosphatase 178 (H) 25 - 110 U/L [facility] MAIN LAB AST (SGOT) 23 7 - 40 U/L [facility] MAIN LAB CO2 26 21 - 30 MMOL/L [facility] MAIN LAB ALT (SGPT) 23 7 - 56 U/L [facility] MAIN LAB Anion Gap 8 3 - 12 [facility] MAIN LAB eGFR Non >60 >60 mL/min [facility] MAIN LAB Comment: [place] The eGFR is not validated f or use in drug dosing adjustments. Continue to use estimated creatinine clearance per dosing reference text. Please contact the Clinical Pharmacist for questions. eGFR >60 >60 mL/min [facility] MAIN LAB [place] Comment: The eGFR is not validated for use in drug dosing adjustments. Continue to use estimated creatinine clearance per dosing reference text. Please contact the Clinical Pharmacist for questions. Specimen Blood Performing Organization Address City/[facility] one Number [facility] MAIN LAB [address] [place] [address] * BILIRUBIN, DIRECT (02/21/2020 2:04 AM CDT) Bilirubin, 0.8 (H) <0.4 MG/DL [facility] MAIN LAB Direct Specimen Performing Organization Address City/[facility] one Number [facility] MAIN LAB [address] [place] [address] * PHOSPHORUS (02/21/2020 2:04 AM CDT) Phosphorus 3.9 2.0 - 4.5 MG/DL [facility] MAIN LAB Specimen Blood Performing Organization Address [facility] Ph one Number [facility] MAIN LAB [address] [place] [address] * CBC AND DIFF CELLULAR THERAPEUTICS (02/21/2020 2:04 AM CDT) Pathologist [facility] White Blood 2.4 (L) 4.5 - 11.0 K/UL [facility] MAIN LAB Cells RBC 2.26 (L) 4.4 - 5.5 M/UL [facility] MAIN LAB Hemoglobin 7.4 (L) 13.5 - 16.5 GM/DL [facility] MAIN LAB Hematocrit 20.8 (L) 40 - 50 % [facility] MAIN LAB MCV 92.2 80 - 100 FL [facility] MAIN LAB MCH 32.6 26 - 34 PG [facility] MAIN LAB MCHC 35.4 32.0 - 36.0 G/DL [facility] MAIN LAB RDW 15.6 (H) 11 - 15 % [facility] MAIN LAB Platelet Count 13 (LL)Comment: Value noted, 150 - 400 K/UL K U MAIN LAB value unchanged MPV 7.0 7 - 11 FL [facility] MAIN LAB Segmented 29 (L) 41 - 77 % [facility] MAIN LAB Neutrophils Lymphocytes 36 24 - 44 % [facility] MAIN LAB Monocytes 28 (H) 4 - 12 % [facility] MAIN LAB Eosinophil 4 0 - 5 % [facility] MAIN LAB Blast 3 % [facility] MAIN LAB ANISO PRESENT [facility] MAIN LAB Platelet MKD DEC [facility] MAIN LAB Estimate Absolute 0.70 (L) 1.8 - 7.0 K/UL [facility] MAIN LAB Neutrophil Count Manual Specimen Blood Performing Organization Address [facility] Ph one Number [facility] MAIN LAB [address] [place] [address] * COMPREHENSIVE METABOLIC PANEL CELLULAR THERAPEUTICS (02/21/2020 2:04 AM CDT) Pathologist [facility] Sodium 136 (L) 137 - 147 MMOL/L [facility] MAIN LAB Potassium 3.5 3.5 - 5.1 MMOL/L [facility] MAIN LAB Chloride 102 98 - 110 MMOL/L [facility] MAIN LAB Glucose 107 (H) 70 - 100 MG/DL [facility] MAIN LAB Blood Urea 24 7 - 25 MG/DL [facility] MAIN LAB Nitrogen Creatinine 1.16 0.4 - 1.24 MG/DL [facility] MAIN LAB Calcium 8.3 (L) 8.5 - 10.6 MG/DL [facility] MAIN LAB Total Protein 6.0 6.0 - 8.0 G/DL [facility] MAIN LAB Total Bilirubin 2.5 (H) 0.3 - 1.2 MG/DL [facility] MAIN LAB Albumin 3.0 (L) 3.5 - 5.0 G/DL [facility] MAIN LAB Alk Phosphatase 194 (H) 25 - 110 U/L [facility] MAIN LAB AST (SGOT) 21 7 - 40 U/L [facility] MAIN LAB CO2 26 21 - 30 MMOL/L [facility] MAIN LAB ALT (SGPT) 23 7 - 56 U/L [facility] MAIN LAB Anion Gap 8 3 - 12 [facility] MAIN LAB eGFR Non >60 >60 mL/min [facility] MAIN LAB Comment: [place] The eGFR is not validated f or use in drug dosing adjustments. Continue to use estimated creatinine clearance per dosing reference text. Please contact the Clinical Pharmacist for questions. eGFR >60 >60 mL/min [facility] MAIN LAB [place] Comment: The eGFR is not validated for use in drug dosing adjustments. Continue to use estimated creatinine clearance per dosing reference text. Please contact the Clinical Pharmacist for questions. Specimen Blood Performing Organization Address City/State/Zipcode Ph one Number [facility] MAIN LAB [address] [place] [address] * US ABDOMEN COMPLETE (02/20/2020 1:40 PM [...] on 02/20/2020 1:55 PM. Performing Organization Address City/[facility] Ph one Number K[facility] RAD RESULTS * TRANSFUSE RBC'S (02/20/2020 9:53 AM CDT) Specimen Blood * TRANSFUSE RBC'S (02/20/2020 9:53 AM CDT) Specimen Blood * CBC AND DIFF CELLULAR THERAPEUTICS (02/20/2020 2:05 AM CDT) White Blood 2.4 (L) 4.5 - 11.0 K/UL [facility] MAIN LAB Cells RBC 2.07 (L) 4.4 - 5.5 M/UL [facility] MAIN LAB Hemoglobin 6.8 (L) 13.5 - 16.5 GM/DL [facility] MAIN LAB Hematocrit 19.5 (L) 40 - 50 % [facility] MAIN LAB MCV 94.2 80 - 100 FL [facility] MAIN LAB MCH 32.9 26 - 34 PG [facility] MAIN LAB MCHC 34.9 32.0 - 36.0 G/DL [facility] MAIN LAB RDW 15.5 (H) 11 - 15 % [facility] MAIN LAB Platelet Count 21 (LL)Comment: Value noted, 150 - 400 K/UL K U MAIN LAB value unchanged MPV 7.5 7 - 11 FL [facility] MAIN LAB Segmented 23 (L) 41 - 77 % [facility] MAIN LAB Neutrophils Bands 2 0 - 10 % [facility] MAIN LAB Lymphocytes 36 24 - 44 % [facility] MAIN LAB Monocytes 30 (H) 4 - 12 % [facility] MAIN LAB Eosinophil 1 0 - 5 % [facility] MAIN LAB Metamyelocyte 1 % [facility] MAIN LAB Blast 7 % [facility] MAIN LAB ANISO PRESENT MAIN LAB Platelet MKD DEC MAIN LAB Estimate Absolute 0.60 (L) 1.8 - 7.0 K/UL [facility] MAIN LAB Neutrophil Count Manual Specimen Blood Performing Organization Address [facility] Ph one Number [facility] MAIN LAB [address] [place] [address] * PHOSPHORUS CELLULAR THERAPEUTICS (02/20/2020 2:05 AM CDT) Phosphorus 3.0 2.0 - 4.5 MG/DL [facility] MAIN LAB Specimen Blood Performing Organization Address City/[facility] Ph one Number MAIN LAB [address] [place] [address] * COMPREHENSIVE METABOLIC PANEL CELLULAR THERAPEUTICS (02/20/2020 2:05 AM CDT) Sodium 138 137 - 147 MMOL/L [facility] MAIN LAB Potassium 3.9 3.5 - 5.1 MMOL/L [facility] MAIN LAB Chloride 106 98 - 110 MMOL/L [facility] MAIN LAB Glucose 106 (H) 70 - 100 MG/DL [facility] MAIN LAB Blood Urea 23 7 - 25 MG/DL [facility] MAIN LAB Nitrogen Creatinine 1.15 0.4 - 1.24 MG/DL [facility] MAIN LAB Calcium 8.2 (L) 8.5 - 10.6 MG/DL [facility] MAIN LAB Total Protein 5.9 (L) 6.0 - 8.0 G/DL [facility] Total Bilirubin 2.2 (H) 0.3 - 1.2 MG/DL [facility] Albumin 3.0 (L) 3.5 - 5.0 G/DL [facility] Alk Phosphatase 195 (H) 25 - 110 U/L [facility] AST (SGOT) 22 7 - 40 U/L [facility] CO2 24 21 - 30 MMOL/L [facility] ALT (SGPT) 24 7 - 56 U/L [facility] Anion Gap 8 3 - 12 [facility] eGFR Non >60 >60 mL/min [facility] Comment: [place] The eGFR is not validated f or use in drug dosing adjustments. Continue to use estimated creatinine clearance per dosing reference text. Please contact the Clinical Pharmacist for questions. eGFR >60 >60 mL/min [facility] [place] Comment: The eGFR is not validated for use in drug dosing adjustments. Continue to use estimated creatinine clearance per dosing reference text. Please contact the Clinical Pharmacist for questions. Specimen Blood Performing Organization Address City/State/Zipcode Ph one Number MAIN LAB [address] [place] [address] * TRANSFUSE APHERESIS PLATELETS (02/19/2020 8:45 AM CDT) * TRANSFUSE APHERESIS PLATELETS (02/19/2020 8:45 AM CDT) * PREPARE APHERESIS PLATELETS (02/19/2020 3:05 AM CDT) Pathologist [facility] Units Ordered 1 MAIN LAB Unit Number [id number] MAIN LAB Blood Component APHERESIS PLT,LEUKO [facility] Type REDUCED,IRRADIATED,2ND CONT . Unit Division 0 MAIN LAB Status OF Unit TRANSFUSED MAIN LAB Transfusion OK TO TRANSFUSE MAIN LAB Status Specimen Other (Specify) Performing Organization Address [facility] Ph one Number MAIN LAB [address] [place] [address] * CBC AND DIFF CELLULAR THERAPEUTICS (02/19/2020 2:00 AM CDT) White Blood 2.4 (L) 4.5 - 11.0 K/UL [facility] Cells RBC 2.23 (L) 4.4 - 5.5 M/UL [facility] Hemoglobin 7.3 (L) 13.5 - 16.5 GM/DL [facility] Hematocrit 21.0 (L) 40 - 50 % [facility] MCV 94.5 80 - 100 FL [facility] MCH 32.7 26 - 34 PG MAIN LAB MCHC 34.6 32.0 - 36.0 G/DL [facility] RDW 15.8 (H) 11 - 15 % [facility] Platelet Count 19 (LL)Comment: Value noted, 150 - 400 K/UL K U MAIN LAB value unchanged MPV 6.9 (L) 7 - 11 FL MAIN LAB Segmented 23 (L) 41 - 77 % [facility] Neutrophils Lymphocytes 29 24 - 44 % [facility] Monocytes 35 (H) 4 - 12 % [facility] Eosinophil 1 0 - 5 % MAIN LAB Basophil 1 0 - 2 % MAIN LAB Blast 11 % MAIN LAB ANISO PRESENT MAIN LAB Platelet MKD DEC MAIN LAB Estimate Absolute 0.55 (L) 1.8 - 7.0 K/UL [facility] Neutrophil Count Manual Specimen Blood Performing Organization Address [facility] Ph one Number MAIN LAB [address] [place] [address] * PHOSPHORUS CELLULAR THERAPEUTICS (02/19/2020 2:00 AM CDT) Phosphorus 3.3 2.0 - 4.5 MG/DL MAIN LAB Specimen Blood Performing Organization Address [facility] Ph one Number MAIN LAB [address] [place] [address] * COMPREHENSIVE METABOLIC PANEL CELLULAR THERAPEUTICS (02/19/2020 2:00 AM CDT) Sodium 138 137 - 147 MMOL/L KU MAIN LAB Potassium 3.8 3.5 - 5.1 MMOL/L KU MAIN LAB Chloride 106 98 - 110 MMOL/L KU MAIN LAB Glucose 110 (H) 70 - 100 MG/DL KU MAIN LAB Blood Urea 23 7 - 25 MG/DL KU MAIN LAB Nitrogen Creatinine 1.31 (H) 0.4 - 1.24 MG/DL KU MAIN LAB Calcium 8.2 (L) 8.5 - 10.6 MG/DL KU MAIN LAB Total Protein 6.0 6.0 - 8.0 G/DL KU MAIN LAB Total Bilirubin 1.4 (H) 0.3 - 1.2 MG/DL KU MAIN LAB Albumin 2.9 (L) 3.5 - 5.0 G/DL KU MAIN LAB Alk Phosphatase 214 (H) 25 - 110 U/L KU MAIN LAB AST (SGOT) 27 7 - 40 U/L KU MAIN LAB CO2 24 21 - 30 MMOL/L KU MAIN LAB ALT (SGPT) 30 7 - 56 U/L KU MAIN LAB Anion Gap 8 3 - 12 KU MAIN LAB eGFR Non 53 (L) >60 mL/min KU MAIN LAB Comment: [place] The eGFR is not validated f or use in drug dosing adjustments. Continue to use estimated creatinine clearance per dosing reference text. Please contact the Clinical Pharmacist for questions. eGFR >60 >60 mL/min KU MAIN LAB [place] Comment: The eGFR is not validated for use in drug dosing adjustments. Continue to use estimated creatinine clearance per dosing reference text. Please contact the Clinical Pharmacist for questions. Specimen Blood Performing Organization Address [facility] one Number MAIN LAB [address] [place] [address] * URIC ACID (02/19/2020 2:00 AM CDT) Uric Acid 3.2 (L) 4.0 - 8.0 MG/DL MAIN LAB Specimen Blood Performing Organization Address [facility] one Number MAIN LAB [address] [place] [address] * MISC REFERENCE TEST (02/18/2020 10:49 AM CDT) Test Fungal Plus PCR Profile I REFERENCE L AB Reference Lab [facility] REFERENCE LAB Results Ref Lab NONE DETECTED REFERENCE LAB NEGATIVE Report Available in Epic SEE ALL 3 RESULTS Specimen Mail BRONCHIAL ALVEOLAR LAVAGE REFERENCE L AB Specimen Narrative Performed At This result has an attachment that is n ot available. Performing Organization Address [facility] one Number REFERENCE LAB REFERENCE LAB See results for address. * COVID-19 (SARS-COV-2) PCR (02/18/2020 10:49 AM CDT) Pathologist [facility] COVID-19 BRONCHIAL ALVEOLAR LAVAGE REFERENCE L AB [...] developed and its performance characteristics determined by [facility]. It has not been cleared or approved by the U.S. Food and Drug Administration. Results should be used in conjunction with clinical findings, and should not form the sole basis for a diagnosis or treatment decision. Testing Performed At: [facility] [address] [place] [address] CLIA ID: [id number] Specimen Performing Organization Address [facility] one Number REFERENCE LAB REFERENCE LAB See results for address. * GRAM STAIN (02/18/2020 10:49 AM CDT) Pathologist [facility] Battery Name GRAM STAIN KU MAIN LAB Specimen BRONCHIAL ALVEOLAR LAVAGE, RUL ANTOLIN Mena LAB Description Special NONE MAIN LAB Requests Gram Stain FEW MAIN LAB NEUTROPHILS MANY RBC'S NO ORGANISMS SEEN Report Status FINAL MAIN LAB 02/18/2020 Specimen Bronchial Alveolar Lavage,RUL Performing Organization Address [facility] one Number KU MAIN LAB [address] [place] [address] * RVP VIRAL PANEL PCR (02/18/2020 10:49 AM CDT) Pathologist [facility] Specimen Source BRONCHIAL ALVEOLAR LAVAGE KU MAIN LAB This panel does not detect SARS-CoV-2, the etiologic agent of COVID-19. Contact Infection Control for testing of patients with suspected SARS-CoV-2 infection. This assay uses analyte specific reagents and has not been cleared by the US Food and Drug Administration. The performance characterics were determined by the [facility]. Adenovirus NOT DETECTED DN-NOT DETECTED MAIN LAB Coronavirus NOT DETECTED DN-NOT DETECTED [facility] 229E Coronavirus NOT DETECTED DN-NOT DETECTED [facility] HKU1 Coronavirus NOT DETECTED DN-NOT DETECTED [facility] NL63 Coronavirus NOT DETECTED DN-NOT DETECTED [facility] OC43 Human NOT DETECTED DN-NOT DETECTED [facility] Metapneumovirus Human NOT DETECTED DN-NOT DETECTED [facility] Rhinovirus/ENTE ROVIRUS Influenza A NOT DETECTED DN-NOT DETECTED [facility] H1N1 2009 Influenza A H1 NOT DETECTED DN-NOT DETECTED [facility] Influenza A H3 NOT DETECTED DN-NOT DETECTED [facility] Influenza B NOT DETECTED DN-NOT DETECTED [facility] Parainfluenza 1 NOT DETECTED DN-NOT DETECTED [facility] Parainfluenza 2 NOT DETECTED DN-NOT DETECTED [facility] Parainfluenza 3 NOT DETECTED DN-NOT DETECTED [facility] Parainfluenza 4 NOT DETECTED DN-NOT DETECTED [facility] RSV NOT DETECTED DN-NOT DETECTED [facility] Bordetella NOT DETECTED DN-NOT DETECTED [facility] Pertussis Chlamydophila NOT DETECTED DN-NOT DETECTED [facility] Pneumoniae Mycoplasma NOT DETECTED DN-NOT DETECTED [facility] Pneumoniae Specimen Bronchial Alveolar Lavage Performing Organization Address City/State/Zipcode Ph one Number [facility] [address] [place] [address] * PJP JIROVECI QUANT PCR (02/18/2020 10:49 [...] developed and its performance characteristics determined by [facility]. It has not been cleared or approved by the U.S. Food and Drug Administration. Results should be used in conjunction with clinical findings, and should not form the sole basis for a diagnosis or treatment decision. Testing Performed At: [facility] [place], [place] [id number] CLIA ID: [id number] Specimen Bronchial Washing RUL Performing Organization Address City/State/Zipcode Ph one Number REFERENCE LAB REFERENCE LAB See results for address. * ASPERGILLUS GALACTOMANN (02/18/2020 10:49 AM CDT) [facility] Aspergillus 0.079 REFERENCE LAB Galactomann BAL Comment: [...] Aspergillus Galactomannan EIA is a product of [employer] and is FDA approved for in vitro diagnostic use. Testing Performed At: [facility] [place] [id number] CLIA ID: [id number] Specimen Bronchial Washing RUL Performing Organization Address [facility] one Number REFERENCE LAB REFERENCE LAB See results for address. * HERPES SIMPLEX PCR - NON-BLOOD (02/18/2020 10:49 AM CDT) Specimen, BRONCHIAL ALVEOLAR LAVAGE MAIN LAB Herpes Herpes Simplex HSV 1 and 2 NOT DETECTED HSVND-HSV 1 and 2 MAIN LAB PCR Comment: NOT DETECTED [employer] HSV 1&2 Assay is a qualitative real-time PCR test for the direct detection and differentiation of HSV 1 and 2 DNA. This assay is FDA approved for testing cutaneous or mucocutaneous lesions from symptomatic patients. Performance on modifications of this test as well as other specimen types has been validated by the Department of Pathology and Laboratory Medicine at the [facility]. Specimen Bronchial Alveolar Lavage Performing Organization Address [facility] one Number MAIN LAB [address] [place] [address] * CMV QUANT PCR-FLUID (02/18/2020 10:49 AM CDT) Specimen, CMV BRONCHIAL ALVEOLAR LAVAGE [facility] CMV by CMV DNA NOT DETECTED CMVND-CMV DNA NOT [facility] PCR-fluid DETECTED CMV This assay is an off label use [facility] Comment-Fluid of the [employer] y for detection of CMV in fluids and has not been approved by the US Food and Drug Administration. The performance characteristics were determined by the [facility]. The lower limit of detection is 50IU/mL. Specimen Fluid - Bronchial Alveolar Lavage Performing Organization Address [facility] one Number MAIN LAB [address] [place] [address] * CULTURE-RESP,LOWER W/SENSITIVITY (02/18/2020 10:49 AM CDT) Battery Name LOWER RESP CULTURE MAIN LAB Specimen BRONCHIAL ALVEOLAR LAVAGE, RUL LAW[place] N LAB Description Special NONE MAIN LAB Requests Direct Gram FEW [facility] MAIN LAB Stain NEUTROPHILS MANY RBC'S NO ORGANISMS SEEN Culture NO GROWTH 2 DAYS MAIN LAB Report Status FINAL MAIN LAB 02/20/2020 Specimen Bronchial Alveolar Lavage,RUL Performing Organization Address [facility]/Zipcode Ph one Number [facility] [address] [place] [address] * CYTOLOGY BRONCH LAVAGE (02/18/2020 10:45 AM CDT) Cytology [facility] [email or web address] Department of Pathology and Laboratory Medicine [address] [place] [address] Surgical Pathology Office: [phone] CYTOLOGY REPORT NAME: JHONY CHI CYTOLOGY #: [id number] MR #: [id number] ALT ID #: BILLING #: [id number] LOCATION: 42 DATE OF PROCEDURE: 02/18/2020 AGE: 75 SEX: M DATE RECEIVED: 02/19/2020 : 1945 TIME RECEIVED: 08:53 PHYSICIAN: AUGUSTINA GOMEZ MD DATE OF REPORT: 02/20/2020 COPY [...] Specimen Bronchial Alveolar Lavage,RUL Performing Organization Address City/[facility] Ph one Number [facility] [address] [place] [address] * BRONCHOSCOPY (02/18/2020 10:29 AM CDT) Provation Patient Name: Jhony DANGELO OTHER Report Procedure Date: 02/18/2020 10:29 RESULT S AM CSN: [id number] Date of : 1945 Gender: Male Attending Physician: Augustina Gomez MD Procedure: Bronchoscopy Indications: Bilateral infiltrate Providers: Augustina Gomez MD (Doctor), Sathish Boudreaux RN (Nurse), Marquis Saavedra Technologist (Hospice Director) Referring Physician: Javier Galarza MD Medications: per [...] I personally performed the entire procedure. MD Augustina Bee MD 02/18/2020 12:26:08 PM The attending physician has electronically signed and finalized this document. Number of Addenda: 0 Note Initiated On: 02/18/2020 10:29 AM Specimen Performing Organization Address City/State/Zipcode Ph one Number KU OTHER RESULTS * TRANSFUSE APHERESIS PLATELETS (02/18/2020 7:46 AM CDT) * TRANSFUSE APHERESIS PLATELETS (02/18/2020 7:46 AM CDT) * PREPARE APHERESIS PLATELETS (02/18/2020 2:43 AM CDT) [facility] Units Ordered 1 MAIN LAB Unit Number [id number] MAIN LAB Blood Component APHERESIS PLT,LEUKO MAIN LAB Type REDUCED,IRRADIATED,1ST CONT . Unit Division 0 MAIN LAB Status OF Unit TRANSFUSED MAIN LAB Transfusion OK TO TRANSFUSE MAIN LAB Status Specimen Other (Specify) Performing Organization Address City/[facility] Ph one Number MAIN LAB [address] [place] [address] * CBC AND DIFF CELLULAR THERAPEUTICS (02/18/2020 2:10 AM CDT) [facility] White Blood 3.5 (L) 4.5 - 11.0 K/UL MAIN LAB Cells RBC 2.39 (L) 4.4 - 5.5 M/UL MAIN LAB Hemoglobin 7.8 (L) 13.5 - 16.5 GM/DL MAIN LAB Hematocrit 22.5 (L) 40 - 50 % MAIN LAB MCV 94.2 80 - 100 FL MAIN LAB MCH 32.5 26 - 34 PG MAIN LAB MCHC 34.5 32.0 - 36.0 G/DL MAIN LAB RDW 15.3 (H) 11 - 15 % MAIN LAB Platelet Count 18 (LL) 150 - 400 K/UL MAIN LAB Comment: CRITICAL VALUE CALLED TO AND READ BACK BY/TIME/TECH [place] Teresa AMY at 02/18/2020 02:33:28 by 1135 MPV 7.3 7 - 11 FL MAIN LAB Segmented 15 (L) 41 - 77 % MAIN LAB Neutrophils Bands 2 0 - 10 % MAIN LAB Lymphocytes 29 24 - 44 % MAIN LAB Monocytes 30 (H) 4 - 12 % MAIN LAB Eosinophil 3 0 - 5 % MAIN LAB Metamyelocyte 2 % MAIN LAB Blast 19 % MAIN LAB ANISO PRESENT MAIN LAB Platelet MKD DEC MAIN LAB Estimate Absolute 0.60 (L) 1.8 - 7.0 K/UL MAIN LAB Neutrophil Count Manual Specimen Blood Performing Organization Address City/[facility] Ph one Number MAIN LAB [address] [place] [address] * PHOSPHORUS CELLULAR THERAPEUTICS (02/18/2020 2:10 AM CDT) [facility] Phosphorus 3.5 2.0 - 4.5 MG/DL KU MAIN LAB Specimen Blood Performing Organization Address City/[facility]/Zipcode Ph one Number KU MAIN LAB [address] [place] [address] * COMPREHENSIVE METABOLIC PANEL CELLULAR THERAPEUTICS (02/18/2020 2:10 AM CDT) Sodium 138 137 - 147 MMOL/L [facility] MAIN LAB Potassium 3.7 3.5 - 5.1 MMOL/L K[facility] MAIN LAB Chloride 105 98 - 110 MMOL/L K[facility] MAIN LAB Glucose 113 (H) 70 - 100 MG/DL K[facility] MAIN LAB Blood Urea 25 7 - 25 MG/DL KU MAIN LAB Nitrogen Creatinine 1.36 (H) 0.4 - 1.24 MG/DL KU MAIN LAB Calcium 8.1 (L) 8.5 - 10.6 MG/DL K[facility] MAIN LAB Total Protein 5.9 (L) 6.0 - 8.0 G/DL K[facility] MAIN LAB Total Bilirubin 1.5 (H) 0.3 - 1.2 MG/DL KU MAIN LAB Albumin 3.1 (L) 3.5 - 5.0 G/DL KU MAIN LAB Alk Phosphatase 237 (H) 25 - 110 U/L KU MAIN LAB AST (SGOT) 27 7 - 40 U/L KU MAIN LAB CO2 25 21 - 30 MMOL/L KU MAIN LAB ALT (SGPT) 31 7 - 56 U/L KU MAIN LAB Anion Gap 8 3 - 12 KU MAIN LAB eGFR Non 51 (L) >60 mL/min K[facility] MAIN LAB Comment: [place] The eGFR is not validated f or use in drug dosing adjustments. Continue to use estimated creatinine clearance per dosing reference text. Please contact the Clinical Pharmacist for questions. eGFR >60 >60 mL/min KU MAIN LAB [place] Comment: The eGFR is not validated for use in drug dosing adjustments. Continue to use estimated creatinine clearance per dosing reference text. Please contact the Clinical Pharmacist for questions. Specimen Blood Performing Organization Address City/[facility]/Zipcode Ph one Number MAIN LAB [address] [place] [address] * PHOSPHORUS CELLULAR THERAPEUTICS (02/17/2020 3:43 PM CDT) Phosphorus 2.8 2.0 - 4.5 MG/DL KU MAIN LAB Specimen Blood Performing Organization Address City/[facility]/Zipcode Ph one Number MAIN LAB [address] [place] [address] * TRANSFUSE RBC'S (02/17/2020 10:03 AM CDT) Specimen Blood * TRANSFUSE RBC'S (02/17/2020 10:03 AM CDT) Specimen Blood * OUTSIDE PATHOLOGY CONSULT (02/17/2020 7:37 AM CDT) PATHOLOGY [facility] www[email or web address] Department of Pathology and Laboratory Medicine [address] [place] [address] Surgical Pathology Office: [phone] PATHOLOGY CONSULTATION NAME: JHONY CHI SURG PATH #: [id number] MR #: [id number] ALT ID #: LOCATION: 42 DATE OF PROCEDURE: 02/17/2020 AGE: 75 SEX: M DATE RECEIVED: 02/17/2020 : 1945 TIME RECEIVED: 07:37 PHYSICIAN: VARUN RUSSO DATE OF REPORT: 02/17/2020 [facility] UNRULY RICKS MD DATE OF PRINTIN02/17/2020 OUTSIDE INSTITUTION: [facility] [employer] [address] [place] [address] phone: [phone] fax: [phone] ############################## ############################## ############ Final Diagnosis: Outside case "[id number]" (date collected 02/06/2020). Bone marrow, aspirate, biopsy, [...] material indicated in this report. +++ +++ smk/02/17/2020 ############################## ############################## ############ Material Received: A: Outside Slides x13, [id number], [facility], [facility], [address] [place] [address], [place] [address] History: 75-year-old male with leukemia Gross Description: A. Received are thirteen (13) outside slides and a report labeled "[id number]". If immunohistochemical stains and/or in situ hybridization are cited in this report, the performance characteristics were determined by the Department of Pathology and Laboratory Medicine of the [facility] ([employer]) in compliance with [...] of Pathology and Laboratory Medicine of the [facility]. It has not been cleared or approved by the FDA. The FDA has determined that such clearance or approval is not necessary. Specimen Performing Organization Address City/State/Zipcode Ph one Number MAIN LAB [address] [place] [address] * TYPE & CROSSMATCH (02/17/2020 4:27 AM CDT) Units Ordered 2 MAIN LAB Crossmatch 02/20/2020,2359 MAIN LAB Expires Record Check FOUND KU MAIN LAB ABO/RH(D) B POS KU MAIN LAB Antibody Screen NEG KU MAIN LAB Electronic YES KU MAIN LAB Crossmatch Unit Number [id number] MAIN LAB Blood Component RBC,ADSOL,LEUKO KU MAIN LAB Type REDUCED,IRRADIATED Unit Division 0 MAIN LAB Status OF Unit TRANSFUSED KU MAIN LAB Transfusion OK TO TRANSFUSE KU MAIN LAB Status Crossmatch COMPATIBLE,ELECTRONIC MAIN LAB Result Unit Number [id number] MAIN LAB Blood Component RBC,ADSOL,LEUKO MAIN LAB Type REDUCED,IRRADIATED Unit Division 0 MAIN LAB Status OF Unit REL FROM ALLOC KU MAIN LAB Transfusion OK TO TRANSFUSE KU MAIN LAB Status Crossmatch COMPATIBLE,ELECTRONIC MAIN LAB Result Unit Number [id number] MAIN LAB Blood Component RBC,ADSOL,LEUKO KU MAIN LAB Type REDUCED,IRRADIATED,1ST CONT . Unit Division 0 MAIN LAB Status OF Unit TRANSFUSED KU MAIN LAB Transfusion OK TO TRANSFUSE KU MAIN LAB Status Crossmatch COMPATIBLE,ELECTRONIC MAIN LAB Result Specimen Blood Performing Organization Address [facility] one Number MAIN LAB [address] [place] [address] * CBC AND DIFF CELLULAR THERAPEUTICS (02/17/2020 2:22 AM CDT) White Blood 4.1 (L) 4.5 - 11.0 K/UL MAIN LAB Cells RBC 2.05 (L) 4.4 - 5.5 M/UL KU MAIN LAB Hemoglobin 6.4 (L) 13.5 - 16.5 GM/DL KU MAIN LAB Hematocrit 19.6 (L) 40 - 50 % MAIN LAB MCV 95.5 80 - 100 FL MAIN LAB MCH 30.9 26 - 34 PG MAIN LAB MCHC 32.4 32.0 - 36.0 G/DL MAIN LAB RDW 16.4 (H) 11 - 15 % MAIN LAB Platelet Count 31 (L) 150 - 400 K/UL MAIN LAB MPV 8.0 7 - 11 FL MAIN LAB Segmented 24 (L) 41 - 77 % MAIN LAB Neutrophils Bands 2 0 - 10 % MAIN LAB Lymphocytes 15 (L) 24 - 44 % MAIN LAB Monocytes 47 (H) 4 - 12 % MAIN LAB Eosinophil 2 0 - 5 % MAIN LAB Myelocyte 4 % MAIN LAB Blast 6 % MAIN LAB ANISO PRESENT MAIN LAB Platelet MKD DEC MAIN LAB Estimate Absolute 1.06 (L) 1.8 - 7.0 K/UL MAIN LAB Neutrophil Count Manual Specimen Blood Performing Organization Address [facility] one Number MAIN LAB [address] [place] [address] * PHOSPHORUS CELLULAR THERAPEUTICS (02/17/2020 2:22 AM CDT) Phosphorus 3.5 2.0 - 4.5 MG/DL KU MAIN LAB Specimen Blood Performing Organization Address City/[facility]/Zipcode Ph one Number KU MAIN LAB [address] [place] [address] * COMPREHENSIVE METABOLIC PANEL CELLULAR THERAPEUTICS (02/17/2020 2:22 AM CDT) Sodium 139 137 - 147 MMOL/L KU MAIN LAB Potassium 3.6 3.5 - 5.1 MMOL/L KU MAIN LAB Chloride 107 98 - 110 MMOL/L KU MAIN LAB Glucose 114 (H) 70 - 100 MG/DL KU MAIN LAB Blood Urea 27 (H) 7 - 25 MG/DL KU MAIN LAB Nitrogen Creatinine 1.44 (H) 0.4 - 1.24 MG/DL KU MAIN LAB Calcium 7.8 (L) 8.5 - 10.6 MG/DL KU MAIN LAB Total Protein 5.7 (L) 6.0 - 8.0 G/DL KU MAIN LAB Total Bilirubin 1.2 0.3 - 1.2 MG/DL KU MAIN LAB Albumin 3.0 (L) 3.5 - 5.0 G/DL KU MAIN LAB Alk Phosphatase 232 (H) 25 - 110 U/L KU MAIN LAB AST (SGOT) 31 7 - 40 U/L KU MAIN LAB CO2 23 21 - 30 MMOL/L KU MAIN LAB ALT (SGPT) 32 7 - 56 U/L KU MAIN LAB Anion Gap 9 3 - 12 KU MAIN LAB eGFR Non 48 (L) >60 mL/min KU MAIN LAB Comment: [place] The eGFR is not validated f or use in drug dosing adjustments. Continue to use estimated creatinine clearance per dosing reference text. Please contact the Clinical Pharmacist for questions. eGFR 58 (L) >60 mL/min KU MAIN LAB [place] Comment: The eGFR is not validated for use in drug dosing adjustments. Continue to use estimated creatinine clearance per dosing reference text. Please contact the Clinical Pharmacist for questions. Specimen Blood Performing Organization Address City/[facility] Ph one Number [facility]U MAIN LAB [address] [place] [address] * PHOSPHORUS CELLULAR THERAPEUTICS (02/16/2020 4:22 PM CDT) Phosphorus 3.5 2.0 - 4.5 MG/DL KU MAIN LAB Specimen Blood Performing Organization Address City/[facility]/Zipcode Ph one Number MAIN LAB [address] [place] [address] * PREPARE APHERESIS PLATELETS (02/16/2020 4:29 AM CDT) Units Ordered 1 MAIN LAB Unit Number [id number] MAIN LAB Blood Component APHERESIS PLT,LEUKO MAIN LAB Type REDUCED,IRRADIATED,3RD CONT . Unit Division 0 MAIN LAB Status OF Unit TRANSFUSED MAIN LAB Transfusion OK TO TRANSFUSE MAIN LAB Status Specimen Other (Specify) Performing Organization Address City/State/Zipcode Ph one Number MAIN LAB [address] [place] [address] * VRE SCREEN (02/16/2020 3:40 AM CDT) Battery Name VRE SCREEN MAIN LAB Specimen PERIRECTAL SWAB MAIN LAB Description Special NONE MAIN LAB Requests Culture NO VRE ISOLATED MAIN LAB Report Status FINAL MAIN LAB 02/17/2020 Specimen Perirectal Swab Performing Organization Address City/[facility]/Zipcode Ph one Number MAIN LAB [address] [place] [address] * CBC AND DIFF CELLULAR THERAPEUTICS (02/16/2020 3:40 AM CDT) Pathologist [facility] White Blood 5.4 4.5 - 11.0 K/UL MAIN LAB Cells RBC 2.21 (L) 4.4 - 5.5 M/UL MAIN LAB Hemoglobin 7.2 (L) 13.5 - 16.5 GM/DL MAIN LAB Hematocrit 21.0 (L) 40 - 50 % MAIN LAB MCV 95.3 80 - 100 FL MAIN LAB MCH 32.4 26 - 34 PG MAIN LAB MCHC 34.0 32.0 - 36.0 G/DL MAIN LAB RDW 16.3 (H) 11 - 15 % MAIN LAB Platelet Count 30 (L) 150 - 400 K/UL MAIN LAB MPV 7.7 7 - 11 FL MAIN LAB Nucleated RBCs 1 K/UL MAIN LAB Segmented 26 (L) 41 - 77 % MAIN LAB Neutrophils Lymphocytes 20 (L) 24 - 44 % MAIN LAB Monocytes 27 (H) 4 - 12 % MAIN LAB Eosinophil 2 0 - 5 % MAIN LAB Blast 25 % MAIN LAB ANISO PRESENT MAIN LAB POIK PRESENT MAIN LAB Ovalocyte PRESENT MAIN LAB MICRO PRESENT MAIN LAB Platelet MKD DEC MAIN LAB Estimate Absolute 1.40 (L) 1.8 - 7.0 K/UL KU MAIN LAB Neutrophil Count Manual Specimen Blood Performing Organization Address [facility] one Number KU MAIN LAB [address] [place] [address] * PHOSPHORUS CELLULAR THERAPEUTICS (02/16/2020 3:40 AM CDT) Phosphorus 4.1 2.0 - 4.5 MG/DL KU MAIN LAB Specimen Blood Performing Organization Address [facility] one Number KU MAIN LAB [address] [place] [address] * COMPREHENSIVE METABOLIC PANEL CELLULAR THERAPEUTICS (02/16/2020 3:40 AM CDT) Sodium 139 137 - 147 MMOL/L KU MAIN LAB Potassium 3.9 3.5 - 5.1 MMOL/L KU MAIN LAB Chloride 106 98 - 110 MMOL/L KU MAIN LAB Glucose 108 (H) 70 - 100 MG/DL KU MAIN LAB Blood Urea 30 (H) 7 - 25 MG/DL KU MAIN LAB Nitrogen Creatinine 1.59 (H) 0.4 - 1.24 MG/DL KU MAIN LAB Calcium 8.4 (L) 8.5 - 10.6 MG/DL KU MAIN LAB Total Protein 5.9 (L) 6.0 - 8.0 G/DL KU MAIN LAB Total Bilirubin 1.2 0.3 - 1.2 MG/DL KU MAIN LAB Albumin 3.1 (L) 3.5 - 5.0 G/DL KU MAIN LAB Alk Phosphatase 208 (H) 25 - 110 U/L KU MAIN LAB AST (SGOT) 27 7 - 40 U/L KU MAIN LAB CO2 26 21 - 30 MMOL/L KU MAIN LAB ALT (SGPT) 28 7 - 56 U/L KU MAIN LAB Anion Gap 7 3 - 12 KU MAIN LAB eGFR Non 42 (L) >60 mL/min KU MAIN LAB Comment: [place] The eGFR is not validated f or use in drug dosing adjustments. Continue to use estimated creatinine clearance per dosing reference text. Please contact the Clinical Pharmacist for questions. eGFR 51 (L) >60 mL/min KU MAIN LAB [place] Comment: The eGFR is not validated for use in drug dosing adjustments. Continue to use estimated creatinine clearance per dosing reference text. Please contact the Clinical Pharmacist for questions. Specimen Blood Performing Organization Address [facility] one Number KU MAIN LAB [address] [place] [address] * RVP VIRAL PANEL PCR (02/15/2020 2:50 PM CDT) Pathologist [facility] Specimen Source NASOPHARYNGEAL SWAB KU MAIN LAB This panel does not detect SARS-CoV-2, the etiologic agent of COVID-19. Contact Infection Control for testing of patients with suspected SARS-CoV-2 infection. This assay uses analyte specific reagents and has not been cleared by the US Food and Drug Administration. The performance characterics were determined by the [facility]. Adenovirus NOT DETECTED DN-NOT DETECTED [facility] MAIN LAB Coronavirus NOT DETECTED DN-NOT DETECTED [facility] 229E Coronavirus NOT DETECTED DN-NOT DETECTED [facility] HKU1 Coronavirus NOT DETECTED DN-NOT DETECTED MAIN LAB NL63 Coronavirus NOT DETECTED DN-NOT DETECTED [facility] OC43 Human NOT DETECTED DN-NOT DETECTED [facility] Metapneumovirus Human NOT DETECTED DN-NOT DETECTED [facility] MAIN LAB Rhinovirus/ENTE ROVIRUS Influenza A NOT DETECTED DN-NOT DETECTED [facility] H1N1 2009 Influenza A H1 NOT DETECTED DN-NOT DETECTED [facility] Influenza A H3 NOT DETECTED DN-NOT DETECTED [facility] Influenza B NOT DETECTED DN-NOT DETECTED MAIN LAB Parainfluenza 1 NOT DETECTED DN-NOT DETECTED MAIN LAB Parainfluenza 2 NOT DETECTED DN-NOT DETECTED [facility] MAIN [facility] Parainfluenza 3 NOT DETECTED DN-NOT DETECTED [facility] Parainfluenza 4 NOT DETECTED DN-NOT DETECTED [facility] RSV NOT DETECTED DN-NOT DETECTED [facility] Bordetella NOT DETECTED DN-NOT DETECTED [facility] Pertussis Chlamydophila NOT DETECTED DN-NOT DETECTED [facility] Pneumoniae Mycoplasma NOT DETECTED DN-NOT DETECTED [facility] Pneumoniae Specimen Performing Organization Address City/State/Zipcode Ph one Number MAIN LAB [address] [place] [address] * COVID-19 (SARS-COV-2) PCR (02/15/2020 2:50 PM CDT) Pathologist [facility] COVID-19 NASOPHARYNGEAL SWAB REFERENCE LAB (SARS-CoV-2) PCR Source COVID-19 NOT DETECTED DN-NOT DETECTED REFERENCE LAB (SARS-CoV-2) Comment: PCR This test has been authoriz ed by the FDA under an FDA Emergency Use Authorization (EUA). Performance characteristics were determined by the [facility] Specimen Nasopharyngeal Swab Performing Organization Address [facility] one Number REFERENCE LAB REFERENCE LAB See results for address. * PHOSPHORUS CELLULAR THERAPEUTICS (02/15/2020 2:50 PM CDT) Phosphorus 3.3 2.0 - 4.5 MG/DL [facility] MAIN LAB Specimen Blood Performing Organization Address [facility] one Number [facility] MAIN LAB [address] [place] [address] * ASPERGILLUS (GALACTOMANNAN) AG (02/15/2020 12:35 PM CDT) Aspergillus 0.033 REFERENCE LAB Galactomann AG Comment: [...] Aspergillus Galactomannan EIA is a product of [employer] and is FDA approved for in vitro diagnostic use. Testing Performed At: [facility] [address] [place] [address] CLIA ID: [id number] Specimen Blood Performing Organization Address [facility] one Number REFERENCE LAB REFERENCE LAB See results for address. * FUNGITELL (02/15/2020 12:35 PM CDT) [facility] Signature Fungitell <31 REFERENCE LAB Reference range: <80 Unit: pg/mL . Interpretation: The Fungitell assay does not detect certain fungal species such as the genus Cryptococcus (Libia et al. 1991) which produces very low levels of (1-3)-Anda-T-Vxosvj. The assay also does not detect the Zygomycetes such as Absidia, Mucor and Rhizopus (Miriam et al. 1994) which are not known to produce (1-3)-Kwyn-I-Jpxgtz. In addition, the yeast phase of Blastomyces dermatitidis produces little (1-3)-Bsdl-V-Lzbrje and may not be detected by the [...] characteristics for these modifications were determined by [facility]. . If sample result is greater than 500 pg/mL, physician may order a titer of the sample. Please contact [facility] if you would like to order a retest of this sample to obtain an actual value. Samples are held for 1 week after initial testing date. Testing Performed At: [facility] [address] [place] [address] GEETA Nicole CLIA ID: [id number] Specimen Blood Performing Organization Address City/State/Zipcode Ph [...] pleural effusions. 3. 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 4. [...] to the myocardium s uggests anemia. Marked [place] coronary artery calcifications and aortic valvul ar [...] relative to the myocardium suggests anemia. Marked [place] coronary artery calcifications and aortic valvular calcifications. [...] pleural effusions. 3. Prior CABG with marked [place] delacruz ry and aortic valvular calcifications. 4. [...] CHEST SINGLE VIEW (02/15/2020 9:10 AM CDT) Specimen Impressions Performed At Mild progression of [...] on 02/15/2020 10:42 AM. Performing Organization Address City/[facility] Ph one Number KU RAD RESULTS * PREPARE APHERESIS PLATELETS (02/15/2020 4:14 AM CDT) Pathologist [facility] Units Ordered 1 MAIN LAB Unit Number [id number] MAIN LAB Blood Component APHERESIS PLT,LEUKO [facility] MAIN LAB Type REDUCED,IRRADIATED,1ST CONT . Unit Division 0 MAIN LAB Status OF Unit TRANSFUSED MAIN LAB Transfusion OK TO TRANSFUSE [facility] MAIN LAB Status Specimen Other (Specify) Performing Organization Address [facility] one Number MAIN LAB [address] [place] [address] * CBC AND DIFF CELLULAR THERAPEUTICS (02/15/2020 3:10 AM CDT) Pathologist [facility] White Blood 6.7 4.5 - 11.0 K/UL MAIN LAB Cells RBC 2.28 (L) 4.4 - 5.5 M/UL MAIN LAB Hemoglobin 7.6 (L) 13.5 - 16.5 GM/DL [facility] MAIN LAB Hematocrit 21.8 (L) 40 - 50 % [facility] MAIN LAB MCV 95.7 80 - 100 FL MAIN LAB MCH 33.1 26 - 34 PG MAIN LAB MCHC 34.6 32.0 - 36.0 G/DL MAIN LAB RDW 17.1 (H) 11 - 15 % [facility] MAIN LAB Platelet Count 26 (L) 150 - 400 K/UL MAIN LAB MPV 8.2 7 - 11 FL MAIN LAB Nucleated RBCs 2 K/UL MAIN LAB Segmented 13 (L) 41 - 77 % [facility] MAIN LAB Neutrophils Lymphocytes 22 (L) 24 - 44 % MAIN LAB Monocytes 12 4 - 12 % [facility] MAIN LAB Eosinophil 2 0 - 5 % [facility] MAIN LAB Blast 51 % MAIN LAB ANISO PRESENT MAIN LAB POIK PRESENT MAIN LAB POLY PRESENT MAIN LAB Ovalocyte PRESENT MAIN LAB Teardrop PRESENT MAIN LAB Platelet MKD DEC MAIN LAB Estimate Absolute 0.87 (L) 1.8 - 7.0 K/UL [facility] MAIN LAB Neutrophil Count Manual Specimen Blood Performing Organization Address [facility] one Number ANTOLIN MAIN LAB [address] [place] [address] * PHOSPHORUS CELLULAR THERAPEUTICS (02/15/2020 3:10 AM CDT) Phosphorus 4.0 2.0 - 4.5 MG/DL [facility] MAIN LAB Specimen Blood Performing Organization Address [facility] one Number ANTOLIN MAIN LAB [address] [place] [address] * COMPREHENSIVE METABOLIC PANEL CELLULAR THERAPEUTICS (02/15/2020 3:10 AM CDT) Sodium 138 137 - 147 MMOL/L [facility] MAIN LAB Potassium 4.3 3.5 - 5.1 MMOL/L [facility] MAIN LAB Chloride 108 98 - 110 MMOL/L [facility] MAIN LAB Glucose 104 (H) 70 - 100 MG/DL [facility] MAIN LAB Blood Urea 34 (H) 7 - 25 MG/DL [facility] MAIN LAB Nitrogen Creatinine 1.56 (H) 0.4 - 1.24 MG/DL [facility] MAIN LAB Calcium 8.5 8.5 - 10.6 MG/DL [facility] MAIN LAB Total Protein 6.1 6.0 - 8.0 G/DL [facility] MAIN LAB Total Bilirubin 1.1 0.3 - 1.2 MG/DL [facility] MAIN LAB Albumin 3.2 (L) 3.5 - 5.0 G/DL [facility] MAIN LAB Alk Phosphatase 215 (H) 25 - 110 U/L [facility] MAIN LAB AST (SGOT) 26 7 - 40 U/L [facility] MAIN LAB CO2 23 21 - 30 MMOL/L [facility] MAIN LAB ALT (SGPT) 29 7 - 56 U/L [facility] MAIN LAB Anion Gap 7 3 - 12 [facility] MAIN LAB eGFR Non 43 (L) >60 mL/min [facility] MAIN LAB Comment: [place] The eGFR is not validated f or use in drug dosing adjustments. Continue to use estimated creatinine clearance per dosing reference text. Please contact the Clinical Pharmacist for questions. eGFR 52 (L) >60 mL/min [facility] MAIN LAB [place] Comment: The eGFR is not validated for use in drug dosing adjustments. Continue to use estimated creatinine clearance per dosing reference text. Please contact the Clinical Pharmacist for questions. Specimen Blood Performing Organization Address [facility] one Number [facility] MAIN LAB [address] [place] [address] * PHOSPHORUS CELLULAR THERAPEUTICS (02/14/2020 4:53 PM CDT) Phosphorus 4.1 2.0 - 4.5 MG/DL [facility] MAIN LAB Specimen Blood Performing Organization Address [facility] Ph one Number MAIN LAB [address] [place] [address] * CBC AND DIFF CELLULAR THERAPEUTICS (02/14/2020 3:16 AM CDT) White Blood 8.7 4.5 - 11.0 K/UL MAIN LAB Cells RBC 2.18 (L) 4.4 - 5.5 M/UL [facility] MAIN LAB Hemoglobin 7.3 (L) 13.5 - 16.5 GM/DL [facility] MAIN LAB Hematocrit 21.1 (L) 40 - 50 % MAIN LAB MCV 96.5 80 - 100 FL MAIN LAB MCH 33.5 26 - 34 PG MAIN LAB MCHC 34.7 32.0 - 36.0 G/DL MAIN LAB RDW 17.2 (H) 11 - 15 % MAIN LAB Platelet Count 31 (L) 150 - 400 K/UL MAIN LAB MPV 8.4 7 - 11 FL MAIN LAB Segmented 21 (L) 41 - 77 % MAIN LAB Neutrophils Lymphocytes 22 (L) 24 - 44 % MAIN LAB Monocytes 8 4 - 12 % MAIN LAB Eosinophil 4 0 - 5 % MAIN LAB Metamyelocyte 1 % MAIN LAB Blast 44 % MAIN LAB ANISO PRESENT MAIN LAB POIK PRESENT MAIN LAB POLY PRESENT MAIN LAB Ovalocyte PRESENT MAIN LAB Teardrop PRESENT MAIN LAB Platelet MKD DEC MAIN LAB Estimate Absolute 1.83 1.8 - 7.0 K/UL MAIN LAB Neutrophil Count Manual Specimen Blood Performing Organization Address [facility] Ph one Number MAIN LAB [address] [place] [address] * PHOSPHORUS CELLULAR THERAPEUTICS (02/14/2020 3:16 AM CDT) Phosphorus 4.7 (H) 2.0 - 4.5 MG/DL MAIN LAB Specimen Blood Performing Organization Address City/[facility] Ph one Number MAIN LAB [address] [place] [address] * COMPREHENSIVE METABOLIC PANEL CELLULAR THERAPEUTICS (02/14/2020 3:16 AM CDT) Sodium 137 137 - 147 MMOL/L [facility] MAIN LAB Potassium 4.4 3.5 - 5.1 MMOL/L [facility] MAIN LAB Chloride 106 98 - 110 MMOL/L [facility] MAIN LAB Glucose 110 (H) 70 - 100 MG/DL K[facility] MAIN LAB Blood Urea 39 (H) 7 - 25 MG/DL [facility] MAIN LAB Nitrogen Creatinine 1.80 (H) 0.4 - 1.24 MG/DL K[facility] MAIN LAB Calcium 8.7 8.5 - 10.6 MG/DL [facility] MAIN LAB Total Protein 6.0 6.0 - 8.0 G/DL [facility] MAIN LAB Total Bilirubin 1.0 0.3 - 1.2 MG/DL [facility] MAIN LAB Albumin 3.2 (L) 3.5 - 5.0 G/DL [facility] MAIN LAB Alk Phosphatase 193 (H) 25 - 110 U/L [facility] MAIN LAB AST (SGOT) 26 7 - 40 U/L [facility] MAIN LAB CO2 23 21 - 30 MMOL/L [facility] MAIN LAB ALT (SGPT) 28 7 - 56 U/L MAIN LAB Anion Gap 8 3 - 12 MAIN LAB eGFR Non 37 (L) >60 mL/min MAIN LAB Comment: [place] The eGFR is not validated f or use in drug dosing adjustments. Continue to use estimated creatinine clearance per dosing reference text. Please contact the Clinical Pharmacist for questions. eGFR 44 (L) >60 mL/min MAIN LAB [place] Comment: The eGFR is not validated for use in drug dosing adjustments. Continue to use estimated creatinine clearance per dosing reference text. Please contact the Clinical Pharmacist for questions. Specimen Blood Performing Organization Address City/[facility] Ph one Number MAIN LAB [address] [place] [address] * PHOSPHORUS CELLULAR THERAPEUTICS (02/13/2020 4:45 PM CDT) Phosphorus 4.8 (H) 2.0 - 4.5 MG/DL MAIN LAB Specimen Blood Performing Organization Address City/[facility] Ph one Number MAIN LAB [address] [place] [address] * GRAM STAIN (02/13/2020 6:36 AM CDT) Battery Name GRAM STAIN MAIN LAB Specimen SPUTUM MAIN LAB Description Special NONE [facility] MAIN LAB Requests Gram Stain LESS THAN 10/LPF K[facility] MAIN LAB NEUTROPHILS 10-25/LPF SQUAMOUS EPITHELIAL CELLS FEW MIXED BACTERIA Report Status FINAL [facility] MAIN LAB 02/13/2020 Specimen Sputum Performing Organization Address [facility]/Zipcode Ph one Number MAIN LAB [address] [place] [address] * CULTURE-RESP,LOWER W/SENSITIVITY (02/13/2020 6:36 AM CDT) Battery Name LOWER RESP CULTURE [facility] MAIN LAB Specimen SPUTUM MAIN LAB Description Special NONE [facility] MAIN LAB Requests Direct Gram LESS THAN 10/LPF K[facility] MAIN LAB Stain NEUTROPHILS 10-25/LPF SQUAMOUS EPITHELIAL CELLS FEW MIXED BACTERIA Culture Heavy growth MAIN LAB NORMAL OROPHARYNGEAL KJ Report Status FINAL MAIN LAB 02/15/2020 Specimen Sputum Performing Organization Address [facility] Ph one Number MAIN LAB [address] [place] [address] * PREPARE APHERESIS PLATELETS (02/13/2020 5:16 AM CDT) Units Ordered 1 MAIN LAB Unit Number [id number] MAIN LAB Blood Component APHERESIS PLT,LEUKO [facility] MAIN LAB Type REDUCED,IRRADIATED,2ND CONT . Unit Division 0 MAIN LAB Status OF Unit TRANSFUSED MAIN LAB Transfusion OK TO TRANSFUSE MAIN LAB Status Specimen Other (Specify) Performing Organization Address [facility] Ph one Number MAIN LAB [address] [place] [address] * CBC AND DIFF CELLULAR THERAPEUTICS (02/13/2020 4:40 AM CDT) White Blood 11.8 (H) 4.5 - 11.0 K/UL MAIN LAB Cells RBC 2.45 (L) 4.4 - 5.5 M/UL [facility] MAIN LAB Hemoglobin 7.9 (L) 13.5 - 16.5 GM/DL K[facility] MAIN LAB Hematocrit 23.7 (L) 40 - 50 % KU MAIN LAB MCV 96.5 80 - 100 FL KU MAIN LAB MCH 32.3 26 - 34 PG KU MAIN LAB MCHC 33.5 32.0 - 36.0 G/DL KU MAIN LAB RDW 18.1 (H) 11 - 15 % K[facility] MAIN LAB Platelet Count 28 (L) 150 - 400 K/UL K[facility] MAIN LAB MPV 8.9 7 - 11 FL K[facility] MAIN LAB Segmented 12 (L) 41 - 77 % K[facility] MAIN LAB Neutrophils Lymphocytes 12 (L) 24 - 44 % K[facility] MAIN LAB Monocytes 16 (H) 4 - 12 % [facility] MAIN LAB Eosinophil 4 0 - 5 % K[facility] MAIN LAB Myelocyte 2 % KU MAIN LAB Blast 54 % KU MAIN LAB ANISO PRESENT KU MAIN LAB POIK PRESENT KU MAIN LAB POLY PRESENT KU MAIN LAB Ovalocyte PRESENT KU MAIN LAB Platelet MKD DEC KU MAIN LAB Estimate Absolute 1.42 (L) 1.8 - 7.0 K/UL KU MAIN LAB Neutrophil Count Manual Specimen Blood Performing Organization Address City/[facility]/Zipcode Ph one Number KU MAIN LAB [address] [place] [address] * PHOSPHORUS CELLULAR THERAPEUTICS (02/13/2020 4:40 AM CDT) Phosphorus 4.8 (H) 2.0 - 4.5 MG/DL K[facility] MAIN LAB Specimen Blood Performing Organization Address [facility] Ph one Number MAIN LAB [address] [place] [address] * COMPREHENSIVE METABOLIC PANEL CELLULAR THERAPEUTICS (02/13/2020 4:40 AM CDT) Sodium 139 137 - 147 MMOL/L KU MAIN LAB Potassium 4.4 3.5 - 5.1 MMOL/L [facility] MAIN LAB Chloride 108 98 - 110 MMOL/L K[facility] MAIN LAB Glucose 121 (H) 70 - 100 MG/DL K[facility] MAIN LAB Blood Urea 48 (H) 7 - 25 MG/DL K[facility] MAIN LAB Nitrogen Creatinine 1.79 (H) 0.4 - 1.24 MG/DL K[facility] MAIN LAB Calcium 8.4 (L) 8.5 - 10.6 MG/DL KU MAIN LAB Total Protein 6.4 6.0 - 8.0 G/DL K[facility] MAIN LAB Total Bilirubin 1.0 0.3 - 1.2 MG/DL K[facility] MAIN LAB Albumin 3.4 (L) 3.5 - 5.0 G/DL K[facility] MAIN LAB Alk Phosphatase 179 (H) 25 - 110 U/L K[facility] MAIN LAB AST (SGOT) 27 7 - 40 U/L K[facility] MAIN LAB CO2 22 21 - 30 MMOL/L K[facility] MAIN LAB ALT (SGPT) 28 7 - 56 U/L K[facility] MAIN LAB Anion Gap 9 3 - 12 KU MAIN LAB eGFR Non 37 (L) >60 mL/min [facility] MAIN LAB Comment: [place] The eGFR is not validated f or use in drug dosing adjustments. Continue to use estimated creatinine clearance per dosing reference text. Please contact the Clinical Pharmacist for questions. eGFR 45 (L) >60 mL/min MAIN LAB [place] Comment: The eGFR is not validated for use in drug dosing adjustments. Continue to use estimated creatinine clearance per dosing reference text. Please contact the Clinical Pharmacist for questions. Specimen Blood Performing Organization Address City/[facility] Ph one Number MAIN LAB [address] [place] [address] * MAGNESIUM (02/13/2020 4:40 AM CDT) Magnesium 2.4 1.6 - 2.6 mg/dL MAIN LAB Specimen Blood Performing Organization Address [facility] Ph one Number MAIN LAB [address] [place] [address] * PHOSPHORUS CELLULAR THERAPEUTICS (02/12/2020 4:00 PM CDT) Phosphorus 5.2 (H) 2.0 - 4.5 MG/DL MAIN LAB Specimen Blood Performing Organization Address [facility] one Number MAIN LAB [address] [place] [address] * TRANSFUSE RBC'S (02/12/2020 9:48 AM CDT) Specimen Blood * TRANSFUSE RBC'S (02/12/2020 9:48 AM CDT) Specimen Blood * URIC ACID (02/12/2020 4:00 AM CDT) Uric Acid 5.7 4.0 - 8.0 MG/DL MAIN LAB Specimen Blood Performing Organization Address [facility] one Number MAIN LAB [address] [place] [address] * PTT (APTT) (02/12/2020 4:00 AM CDT) APTT 19.7 (L) 24.0 - 36.5 SEC MAIN LAB Specimen Blood Performing Organization Address [facility] one Number MAIN LAB [address] [place] [address] * PROTIME INR (PT) (02/12/2020 4:00 AM CDT) INR 1.3 (H) 0.8 - 1.2 KU MAIN LAB Specimen Blood Performing Organization Address [facility] one Number KU MAIN LAB [address] [place] [address] * PHOSPHORUS CELLULAR THERAPEUTICS (02/12/2020 4:00 AM CDT) Phosphorus 6.3 (H) 2.0 - 4.5 MG/DL KU MAIN LAB Specimen Blood Performing Organization Address [facility] one Number KU MAIN LAB [address] [place] [id number] * LDH-LACTATE DEHYDROGENASE (02/12/2020 4:00 AM CDT) Lactate 415 (H) 100 - 210 U/L KU MAIN LAB Dehydrogenase Specimen Blood Performing Organization Address [facility] one Number ANTOLIN MAIN LAB [address] [place] [address] * FIBRINOGEN (02/12/2020 4:00 AM CDT) Fibrinogen 449 (H) 200 - 400 MG/DL KU MAIN LAB Specimen Blood Performing Organization Address [facility] one Number ANTOLIN MAIN LAB [address] [place] [address] * CBC AND DIFF CELLULAR THERAPEUTICS (02/12/2020 4:00 AM CDT) White Blood 20.9 (H) 4.5 - 11.0 K/UL MAIN LAB Cells RBC 2.07 (L) 4.4 - 5.5 M/UL KU MAIN LAB Hemoglobin 6.8 (L) 13.5 - 16.5 GM/DL MAIN LAB Hematocrit 20.5 (L) 40 - 50 % MAIN LAB MCV 98.7 80 - 100 FL MAIN LAB MCH 32.9 26 - 34 PG MAIN LAB MCHC 33.3 32.0 - 36.0 G/DL MAIN LAB RDW 17.8 (H) 11 - 15 % KU MAIN LAB Platelet Count 37 (L) 150 - 400 K/UL MAIN LAB MPV 8.8 7 - 11 FL MAIN LAB Nucleated RBCs 2 K/UL KU MAIN LAB Segmented 9 (L) 41 - 77 % KU MAIN LAB Neutrophils Bands 2 0 - 10 % MAIN LAB Lymphocytes 14 (L) 24 - 44 % MAIN LAB Monocytes 16 (H) 4 - 12 % KU MAIN LAB Eosinophil 1 0 - 5 % KU MAIN LAB Myelocyte 1 % KU MAIN LAB Blast 57 % KU MAIN LAB ANISO PRESENT KU MAIN LAB Platelet MKD DEC KU MAIN LAB Estimate Absolute 2.30 1.8 - 7.0 K/UL KU MAIN LAB Neutrophil Count Manual Specimen Blood Performing Organization Address City/[facility] Ph one Number KU MAIN LAB [address] [place] [address] * COMPREHENSIVE METABOLIC PANEL CELLULAR THERAPEUTICS (02/12/2020 4:00 AM CDT) Sodium 138 137 - 147 MMOL/L KU MAIN LAB Potassium 4.3 3.5 - 5.1 MMOL/L K[facility] MAIN LAB Chloride 108 98 - 110 MMOL/L KU MAIN LAB Glucose 115 (H) 70 - 100 MG/DL KU MAIN LAB Blood Urea 55 (H) 7 - 25 MG/DL KU MAIN LAB Nitrogen Creatinine 2.14 (H) 0.4 - 1.24 MG/DL KU MAIN LAB Calcium 8.0 (L) 8.5 - 10.6 MG/DL KU MAIN LAB Total Protein 5.9 (L) 6.0 - 8.0 G/DL KU MAIN LAB Total Bilirubin 0.9 0.3 - 1.2 MG/DL KU MAIN LAB Albumin 3.2 (L) 3.5 - 5.0 G/DL KU MAIN LAB Alk Phosphatase 161 (H) 25 - 110 U/L KU MAIN LAB AST (SGOT) 24 7 - 40 U/L KU MAIN LAB CO2 23 21 - 30 MMOL/L KU MAIN LAB ALT (SGPT) 24 7 - 56 U/L KU MAIN LAB Anion Gap 7 3 - 12 KU MAIN LAB eGFR Non 30 (L) >60 mL/min KU MAIN LAB Comment: [place] The eGFR is not validated f or use in drug dosing adjustments. Continue to use estimated creatinine clearance per dosing reference text. Please contact the Clinical Pharmacist for questions. eGFR 36 (L) >60 mL/min KU MAIN LAB [place] Comment: The eGFR is not validated for use in drug dosing adjustments. Continue to use estimated creatinine clearance per dosing reference text. Please contact the Clinical Pharmacist for questions. Specimen Blood Performing Organization Address City/[facility] Ph one Number MAIN LAB [address] [place] [address] * MAGNESIUM (02/12/2020 4:00 AM CDT) Magnesium 2.7 (H) 1.6 - 2.6 mg/dL MAIN LAB Specimen Blood Performing Organization Address [facility] one Number MAIN LAB [address] [place] [address] * TRANSFUSE APHERESIS PLATELETS (02/12/2020 1:39 AM CDT) * TRANSFUSE APHERESIS PLATELETS (02/12/2020 1:39 AM CDT) * PREPARE APHERESIS PLATELETS (02/11/2020 8:31 PM CDT) Units Ordered 1 MAIN LAB Unit Number [id number] MAIN LAB Blood Component APHERESIS PLT,LEUKO KU MAIN LAB Type REDUCED,IRRADIATED Unit Division 0 MAIN LAB Status OF Unit TRANSFUSED MAIN LAB Transfusion OK TO TRANSFUSE KU MAIN LAB Status Specimen Other (Specify) Performing Organization Address [facility] one Number MAIN LAB [address] [place] [address] * URIC ACID (02/11/2020 4:00 PM CDT) Uric Acid 5.3 4.0 - 8.0 MG/DL MAIN LAB Specimen Blood Performing Organization Address [facility] one Number MAIN LAB [address] [place] [address] * PTT (APTT) (02/11/2020 4:00 PM CDT) APTT 29.3 24.0 - 36.5 SEC MAIN LAB Specimen Blood Performing Organization Address [facility] one Number MAIN LAB [address] [place] [address] * PROTIME INR (PT) (02/11/2020 4:00 PM CDT) INR 1.4 (H) 0.8 - 1.2 MAIN LAB Specimen Blood Performing Organization Address [facility] one Number MAIN LAB [address] [place] [address] * PHOSPHORUS CELLULAR THERAPEUTICS (02/11/2020 4:00 PM CDT) Phosphorus 6.5 (H) 2.0 - 4.5 MG/DL MAIN LAB Specimen Blood Performing Organization Address [facility] Ph one Number KU MAIN LAB [address] [place] [address] * FIBRINOGEN (02/11/2020 4:00 PM CDT) Fibrinogen 471 (H) 200 - 400 MG/DL KU MAIN LAB Specimen Blood Performing Organization Address [facility] Ph one Number KU MAIN LAB [address] [place] [address] * CBC AND DIFF CELLULAR THERAPEUTICS (02/11/2020 4:00 PM CDT) White Blood 24.7 (H) 4.5 - 11.0 K/UL KU MAIN LAB Cells RBC 2.37 (L) 4.4 - 5.5 M/UL KU MAIN LAB Hemoglobin 7.5 (L) 13.5 - 16.5 GM/DL KU MAIN LAB Hematocrit 23.3 (L) 40 - 50 % KU MAIN LAB MCV 98.3 80 - 100 FL KU MAIN LAB MCH 31.9 26 - 34 PG KU MAIN LAB MCHC 32.4 32.0 - 36.0 G/DL KU MAIN LAB RDW 17.9 (H) 11 - 15 % KU MAIN LAB Platelet Count 29 (L) 150 - 400 K/UL KU MAIN LAB MPV 9.0 7 - 11 FL KU MAIN LAB Segmented 26 (L) 41 - 77 % KU MAIN LAB Neutrophils Lymphocytes 11 (L) 24 - 44 % KU MAIN LAB Monocytes 2 (L) 4 - 12 % KU MAIN LAB Metamyelocyte 2 % KU MAIN LAB Myelocyte 5 % KU MAIN LAB Blast 54 % KU MAIN LAB ANISO PRESENT MAIN LAB POIK PRESENT MAIN LAB POLY PRESENT MAIN LAB Ovalocyte PRESENT MAIN LAB Teardrop PRESENT MAIN LAB Platelet MKD DEC KU MAIN LAB Estimate Absolute 6.42 1.8 - 7.0 K/UL KU MAIN LAB Neutrophil Count Manual Specimen Blood Performing Organization Address City/[facility]/Zipcode Ph one Number KU MAIN LAB [address] [place] [address] * BASIC METABOLIC PANEL CELLULAR THERAPEUTICS (02/11/2020 4:00 PM CDT) Sodium 137 137 - 147 MMOL/L [facility] MAIN LAB Potassium 4.7 3.5 - 5.1 MMOL/L [facility] MAIN [facility] Chloride 107 98 - 110 MMOL/L [facility] MAIN [facility] CO2 21 21 - 30 MMOL/L [facility]IN [facility] Anion Gap 9 3 - 12 [facility] MAIN [facility] Glucose 111 (H) 70 - 100 MG/DL [facility] MAIN LAB Blood Urea 57 (H) 7 - 25 MG/DL MAIN LAB Nitrogen Creatinine 2.26 (H) 0.4 - 1.24 MG/DL MAIN LAB Calcium 8.2 (L) 8.5 - 10.6 MG/DL MAIN LAB eGFR Non 28 (L) >60 mL/min MAIN LAB Comment: [place] The eGFR is not validated f or use in drug dosing adjustments. Continue to use estimated creatinine clearance per dosing reference text. Please contact the Clinical Pharmacist for questions. eGFR 34 (L) >60 mL/min MAIN LAB [place] Comment: The eGFR is not validated for use in drug dosing adjustments. Continue to use estimated creatinine clearance per dosing reference text. Please contact the Clinical Pharmacist for questions. Specimen Blood Performing Organization Address [facility] one Number MAIN LAB [address] [place] [address] * URIC ACID (02/11/2020 2:45 AM CDT) Uric Acid 5.1 4.0 - 8.0 MG/DL MAIN LAB Specimen Blood Performing Organization Address [facility] Ph one Number MAIN LAB [address] [place] [address] * PTT (APTT) (02/11/2020 2:45 AM CDT) APTT 26.8 24.0 - 36.5 SEC MAIN LAB Specimen Blood Performing Organization Address [facility] one Number MAIN LAB [address] [place] [address] * PROTIME INR (PT) (02/11/2020 2:45 AM CDT) INR 1.4 (H) 0.8 - 1.2 MAIN LAB Specimen Blood Performing Organization Address [facility] one Number MAIN LAB [address] [place] [address] * PHOSPHORUS CELLULAR THERAPEUTICS (02/11/2020 2:45 AM CDT) Phosphorus 7.3 (H) 2.0 - 4.5 MG/DL MAIN LAB Specimen Blood Performing Organization Address [facility] Ph one Number [facility] MAIN LAB [address] [place] [address] * LDH-LACTATE DEHYDROGENASE (02/11/2020 2:45 AM CDT) Lactate 509 (H) 100 - 210 U/L [facility] MAIN LAB Dehydrogenase Specimen Blood Performing Organization Address [facility] Ph one Number [facility] MAIN LAB [address] [place] [address] * FIBRINOGEN (02/11/2020 2:45 AM CDT) Fibrinogen 443 (H) 200 - 400 MG/DL [facility] MAIN LAB Specimen Blood Performing Organization Address [facility] one Number [facility] MAIN LAB [address] [place] [id number] * CBC AND DIFF CELLULAR THERAPEUTICS (02/11/2020 2:45 AM CDT) White Blood 31.0 (H) 4.5 - 11.0 K/UL MAIN LAB Cells RBC 2.30 (L) 4.4 - 5.5 M/UL MAIN LAB Hemoglobin 7.3 (L) 13.5 - 16.5 GM/DL MAIN LAB Hematocrit 22.5 (L) 40 - 50 % MAIN LAB MCV 98.0 80 - 100 FL MAIN LAB MCH 31.9 26 - 34 PG MAIN LAB MCHC 32.6 32.0 - 36.0 G/DL [facility] MAIN LAB RDW 17.9 (H) 11 - 15 % [facility] MAIN LAB Platelet Count 37 (L) 150 - 400 K/UL MAIN LAB MPV 9.0 7 - 11 FL MAIN LAB Nucleated RBCs 1 K/UL MAIN LAB Segmented 21 (L) 41 - 77 % MAIN LAB Neutrophils Lymphocytes 11 (L) 24 - 44 % MAIN LAB Monocytes 8 4 - 12 % MAIN LAB Eosinophil 1 0 - 5 % MAIN LAB Metamyelocyte 1 % MAIN LAB Blast 58 % MAIN LAB ANISO PRESENT MAIN LAB POLY PRESENT MAIN LAB Platelet MKD DEC MAIN LAB Estimate Absolute 6.51 1.8 - 7.0 K/UL MAIN LAB Neutrophil Count Manual Specimen Blood Performing Organization Address [facility] Ph one Number MAIN LAB [address] [place] [address] * COMPREHENSIVE METABOLIC PANEL CELLULAR THERAPEUTICS (02/11/2020 2:45 AM CDT) Sodium 139 137 - 147 MMOL/L [facility] MAIN LAB Potassium 4.6 3.5 - 5.1 MMOL/L [facility] MAIN LAB Chloride 108 98 - 110 MMOL/L [facility] MAIN LAB Glucose 107 (H) 70 - 100 MG/DL [facility] MAIN LAB Blood Urea 59 (H) 7 - 25 MG/DL [facility] MAIN LAB Nitrogen Creatinine 2.32 (H) 0.4 - 1.24 MG/DL [facility] MAIN LAB Calcium 8.1 (L) 8.5 - 10.6 MG/DL [facility] MAIN LAB Total Protein 6.0 6.0 - 8.0 G/DL [facility] MAIN LAB Total Bilirubin 1.1 0.3 - 1.2 MG/DL [facility] MAIN LAB Albumin 3.2 (L) 3.5 - 5.0 G/DL [facility] MAIN LAB Alk Phosphatase 135 (H) 25 - 110 U/L [facility] MAIN LAB AST (SGOT) 28 7 - 40 U/L [facility] MAIN LAB CO2 21 21 - 30 MMOL/L [facility] MAIN LAB ALT (SGPT) 24 7 - 56 U/L [facility] MAIN LAB Anion Gap 10 3 - 12 [facility] MAIN LAB eGFR Non 27 (L) >60 mL/min [facility] MAIN LAB Comment: [place] The eGFR is not validated f or use in drug dosing adjustments. Continue to use estimated creatinine clearance per dosing reference text. Please contact the Clinical Pharmacist for questions. eGFR 33 (L) >60 mL/min [facility] MAIN LAB [place] Comment: The eGFR is not validated for use in drug dosing adjustments. Continue to use estimated creatinine clearance per dosing reference text. Please contact the Clinical Pharmacist for questions. Specimen Blood Performing Organization Address City/[facility]/Zipcode Ph one Number MAIN LAB [address] [place] [address] * MAGNESIUM (02/11/2020 2:45 AM CDT) Magnesium 2.4 1.6 - 2.6 mg/dL [facility] MAIN LAB Specimen Blood Performing Organization Address City/State/Zipcode Ph one Number MAIN LAB [address] [place] [address] * TRANSFUSE RBC'S (02/11/2020 1:08 AM CDT) Specimen Blood * TRANSFUSE RBC'S (02/11/2020 1:08 AM CDT) Specimen Blood * TRANSFUSE APHERESIS PLATELETS (02/10/2020 8:53 PM CDT) * TRANSFUSE APHERESIS PLATELETS (02/10/2020 8:53 PM CDT) * TYPE & CROSSMATCH (02/10/2020 6:27 PM CDT) Units Ordered 2 [facility] MAIN LAB Crossmatch 02/13/2020 [facility] MAIN LAB Expires Record Check FOUND [facility] MAIN LAB ABO/RH(D) B POS [facility] MAIN LAB Antibody Screen NEG [facility] MAIN LAB Electronic YES [facility] MAIN LAB Crossmatch Unit Number [id number] [facility] MAIN LAB Blood Component RBC,ADSOL,LEUKO [facility] MAIN LAB Type REDUCED,IRRADIATED Unit Division 0 [facility] MAIN LAB Status OF Unit TRANSFUSED [facility] MAIN LAB Transfusion OK TO TRANSFUSE [facility] MAIN LAB Status Crossmatch COMPATIBLE,ELECTRONIC [facility] MAIN LAB Result Unit Number [id number] [facility] MAIN LAB Blood Component RBC,ADSOL,LEUKO [facility] MAIN [facility] Type REDUCED,IRRADIATED Unit Division 0 [facility] MAIN LAB Status OF Unit TRANSFUSED [facility] MAIN LAB Transfusion OK TO TRANSFUSE [facility] MAIN LAB Status Crossmatch COMPATIBLE,ELECTRONIC MAIN LAB Result Specimen Blood Performing Organization Address City/[facility] Ph one Number MAIN LAB [address] [place] [address] * PREPARE APHERESIS PLATELETS (02/10/2020 5:49 PM CDT) Units Ordered 1 MAIN LAB Unit Number [id number] MAIN LAB Blood Component APHERESIS PLT,LEUKO [facility] MAIN LAB Type REDUCED,IRRADIATED,1ST CONT . Unit Division 0 MAIN LAB Status OF Unit TRANSFUSED [facility] MAIN LAB Transfusion OK TO TRANSFUSE MAIN LAB Status Specimen Other (Specify) Performing Organization Address City/[facility] one Number MAIN LAB [address] [place] [address] * URIC ACID (02/10/2020 4:24 PM CDT) Uric Acid 4.7 4.0 - 8.0 MG/DL [facility] MAIN LAB Specimen Blood Performing Organization Address City/[facility] Number MAIN LAB [address] [place] [address] * PTT (APTT) (02/10/2020 4:24 PM CDT) APTT 22.9 (L) 24.0 - 36.5 SEC [facility] MAIN LAB Specimen Blood Performing Organization Address [facility] Ph one Number [facility] MAIN LAB [address] [place] [address] * PROTIME INR (PT) (02/10/2020 4:24 PM CDT) INR 1.5 (H) 0.8 - 1.2 [facility] MAIN LAB Specimen Blood Performing Organization Address [facility] Ph one Number [facility] MAIN LAB [address] [place] [address] * PHOSPHORUS CELLULAR THERAPEUTICS (02/10/2020 4:24 PM CDT) Phosphorus 7.3 (H) 2.0 - 4.5 MG/DL MAIN LAB Specimen Blood Performing Organization Address [facility] one Number MAIN LAB [address] [place] [address] * FIBRINOGEN (02/10/2020 4:24 PM CDT) Fibrinogen 432 (H) 200 - 400 MG/DL MAIN LAB Specimen Blood Performing Organization Address [facility] one Number MAIN LAB [address] [place] [phone] * CBC AND DIFF CELLULAR THERAPEUTICS (02/10/2020 4:24 PM CDT) White Blood 40.0 (H) 4.5 - 11.0 K/UL MAIN LAB Cells RBC 2.14 (L) 4.4 - 5.5 M/UL MAIN LAB Hemoglobin 6.8 (L) 13.5 - 16.5 GM/DL MAIN LAB Hematocrit 21.5 (L) 40 - 50 % MAIN LAB MCV 100.6 (H) 80 - 100 FL MAIN LAB MCH 32.1 26 - 34 PG MAIN LAB MCHC 31.9 (L) 32.0 - 36.0 G/DL MAIN LAB RDW 17.5 (H) 11 - 15 % MAIN LAB Platelet Count 25 (L) 150 - 400 K/UL MAIN LAB MPV 8.7 7 - 11 FL MAIN LAB Nucleated RBCs 3 K/UL MAIN LAB Segmented 12 (L) 41 - 77 % MAIN LAB Neutrophils Bands 1 0 - 10 % MAIN LAB Lymphocytes 7 (L) 24 - 44 % MAIN LAB Monocytes 3 (L) 4 - 12 % MAIN LAB Blast 77 % MAIN LAB ANISO PRESENT MAIN LAB POLY PRESENT MAIN LAB MACRO PRESENT MAIN LAB Platelet MKD DEC MAIN LAB Estimate Absolute 5.20 1.8 - 7.0 K/UL MAIN LAB Neutrophil Count Manual Specimen Blood Performing Organization Address [facility] Ph one Number MAIN LAB [address] [place] [address] * BASIC METABOLIC PANEL CELLULAR THERAPEUTICS (02/10/2020 4:24 PM CDT) Sodium 139 137 - 147 MMOL/L MAIN LAB Potassium 4.5 3.5 - 5.1 MMOL/L MAIN LAB Chloride 108 98 - 110 MMOL/L MAIN LAB CO2 21 21 - 30 MMOL/L [facility] MAIN LAB Anion Gap 10 3 - 12 MAIN LAB Glucose 121 (H) 70 - 100 MG/DL MAIN LAB Blood Urea 55 (H) 7 - 25 MG/DL MAIN LAB Nitrogen Creatinine 2.42 (H) 0.4 - 1.24 MG/DL MAIN LAB Calcium 8.2 (L) 8.5 - 10.6 MG/DL MAIN LAB eGFR Non 26 (L) >60 mL/min MAIN LAB Comment: [place] The eGFR is not validated f or use in drug dosing adjustments. Continue to use estimated creatinine clearance per dosing reference text. Please contact the Clinical Pharmacist for questions. eGFR 32 (L) >60 mL/min MAIN LAB [place] Comment: The eGFR is not validated for use in drug dosing adjustments. Continue to use estimated creatinine clearance per dosing reference text. Please contact the Clinical Pharmacist for questions. Specimen Blood Performing Organization Address [facility] one Number MAIN LAB [address] [place] [address] * COVID-19 (SARS-COV-2) PCR (02/10/2020 11:58 AM CDT) Pathologist [facility] COVID-19 NASOPHARYNGEAL SWAB REFERENCE LAB (SARS-CoV-2) PCR Source COVID-19 NOT DETECTED DN-NOT DETECTED REFERENCE LAB (SARS-CoV-2) Comment: PCR This test has been authoriz ed by the FDA under an FDA Emergency Use Authorization (EUA). Performance characteristics were determined by the [facility] Laboratories Specimen Nasopharyngeal Swab Performing Organization Address [facility] one Number REFERENCE LAB REFERENCE LAB See results for address. * URIC ACID (02/10/2020 2:40 AM CDT) Uric Acid 4.0 4.0 - 8.0 MG/DL MAIN LAB Specimen Blood Performing Organization Address [facility] one Number MAIN LAB [address] [place] [address] * PTT (APTT) (02/10/2020 2:40 AM CDT) APTT 28.5 24.0 - 36.5 SEC MAIN LAB Specimen Blood Performing Organization Address [facility] one Number MAIN LAB [address] [place] [address] * PROTIME INR (PT) (02/10/2020 2:40 AM CDT) INR 1.6 (H) 0.8 - 1.2 MAIN LAB Specimen Blood Performing Organization Address [facility] one Number MAIN LAB [address] [place] [address] * PHOSPHORUS CELLULAR THERAPEUTICS (02/10/2020 2:40 AM CDT) Phosphorus 7.7 (H) 2.0 - 4.5 MG/DL MAIN LAB Specimen Blood Performing Organization Address [facility] one Number MAIN LAB [address] [place] [address] * LDH-LACTATE DEHYDROGENASE (02/10/2020 2:40 AM CDT) Lactate 626 (H) 100 - 210 U/L MAIN LAB Dehydrogenase Specimen Blood Performing Organization Address [facility] one Number MAIN LAB [address] [place] [address] * FIBRINOGEN (02/10/2020 2:40 AM CDT) Fibrinogen 476 (H) 200 - 400 MG/DL MAIN LAB Specimen Blood Performing Organization Address [facility] one Number MAIN LAB [address] [place] [address] * CBC AND DIFF CELLULAR THERAPEUTICS (02/10/2020 2:40 AM CDT) White Blood 63.1 (HH)Comment: Value noted, 4.5 - 11.0 K/UL [facility] MAIN LAB Cells value unchanged RBC 2.32 (L) 4.4 - 5.5 M/UL [facility] MAIN LAB Hemoglobin 7.4 (L) 13.5 - 16.5 GM/DL [facility] MAIN LAB Hematocrit 23.3 (L) 40 - 50 % [facility] MAIN LAB MCV 100.6 (H) 80 - 100 FL [facility] MAIN LAB MCH 32.0 26 - 34 PG [facility] MAIN LAB MCHC 31.8 (L) 32.0 - 36.0 G/DL [facility] MAIN LAB RDW 17.9 (H) 11 - 15 % [facility] MAIN LAB Platelet Count 40 (L) 150 - 400 K/UL [facility] MAIN LAB MPV 8.3 7 - 11 FL [facility] MAIN LAB Nucleated RBCs 3 K/UL [facility] MAIN LAB Segmented 14 (L) 41 - 77 % [facility] MAIN LAB Neutrophils Lymphocytes 9 (L) 24 - 44 % [facility] MAIN LAB Monocytes 13 (H) 4 - 12 % [facility] MAIN LAB Eosinophil 1 0 - 5 % [facility] MAIN LAB Metamyelocyte 1 % [facility] MAIN LAB Blast 62 % [facility] MAIN LAB ANISO PRESENT [facility]U MAIN LAB POLY PRESENT KU MAIN LAB Ovalocyte PRESENT KU MAIN LAB MACRO PRESENT KU MAIN LAB Teardrop PRESENT [facility] MAIN LAB Platelet MKD DEC [facility] MAIN LAB Estimate Absolute 8.83 (H) 1.8 - 7.0 K/UL [facility] MAIN LAB Neutrophil Count Manual Specimen Blood Performing Organization Address City/State/[facility] Ph one Number [facility] [address] [facility] [address] * COMPREHENSIVE METABOLIC PANEL CELLULAR THERAPEUTICS (02/10/2020 2:40 AM CDT) Sodium 139 137 - 147 MMOL/L [facility] MAIN LAB Potassium 4.6 3.5 - 5.1 MMOL/L [facility] MAIN LAB Chloride 107 98 - 110 MMOL/L [facility] MAIN LAB Glucose 126 (H) 70 - 100 MG/DL [facility] MAIN LAB Blood Urea 47 (H) 7 - 25 MG/DL [facility] MAIN LAB Nitrogen Creatinine 2.26 (H) 0.4 - 1.24 MG/DL [facility] MAIN LAB Calcium 8.3 (L) 8.5 - 10.6 MG/DL [facility] MAIN LAB Total Protein 6.4 6.0 - 8.0 G/DL [facility] MAIN LAB Total Bilirubin 1.1 0.3 - 1.2 MG/DL [facility] MAIN LAB Albumin 3.4 (L) 3.5 - 5.0 G/DL MAIN LAB Alk Phosphatase 145 (H) 25 - 110 U/L MAIN LAB AST (SGOT) 38 7 - 40 U/L [facility] MAIN LAB CO2 22 21 - 30 MMOL/L MAIN LAB ALT (SGPT) 30 7 - 56 U/L [facility] MAIN LAB Anion Gap 10 3 - 12 MAIN LAB eGFR Non 28 (L) >60 mL/min MAIN LAB Comment: [place] The eGFR is not validated f or use in drug dosing adjustments. Continue to use estimated creatinine clearance per dosing reference text. Please contact the Clinical Pharmacist for questions. eGFR 34 (L) >60 mL/min MAIN LAB [place] Comment: The eGFR is not validated for use in drug dosing adjustments. Continue to use estimated creatinine clearance per dosing reference text. Please contact the Clinical Pharmacist for questions. Specimen Blood Performing Organization Address City/[facility] Ph one Number MAIN LAB [address] [place] [address] * MAGNESIUM (02/10/2020 2:40 AM CDT) [facility] Magnesium 2.1 1.6 - 2.6 mg/dL MAIN LAB Specimen Blood Performing Organization Address [facility] Ph one Number MAIN LAB [address] [place] [address] * PREPARE APHERESIS PLATELETS (02/09/2020 5:59 PM CDT) [facility] Units Ordered 1 MAIN LAB Unit Number [id number] MAIN LAB Blood Component APHERESIS PLT,LEUKO MAIN LAB Type REDUCED,IRRADIATED,1ST CONT . Unit Division 0 MAIN LAB Status OF Unit TRANSFUSED MAIN LAB Transfusion OK TO TRANSFUSE MAIN LAB Status Specimen Other (Specify) Performing Organization Address [facility] Ph one Number MAIN LAB [address] [place] [address] * CULTURE-BLOOD W/SENSITIVITY (02/09/2020 5:23 PM CDT) [facility] Battery Name BLOOD CULTURE MAIN LAB Specimen BLOOD MAIN LAB Description LEFT ARM Special NONE MAIN LAB Requests Culture NO GROWTH 5 DAYS MAIN LAB Report Status FINAL MAIN LAB 02/15/2020 Specimen Blood Performing Organization Address [facility] Ph one Number MAIN LAB [address] [place] [address] * CULTURE-BLOOD W/SENSITIVITY (02/09/2020 4:19 PM CDT) Battery Name BLOOD CULTURE [facility] MAIN LAB Specimen BLOOD MAIN LAB Description RIGHT DOUBLE LUMEN PICC LINE RED Special aerobic bottle only KU MAIN LAB Requests Culture NO GROWTH 5 DAYS [facility] MAIN LAB Report Status FINAL MAIN LAB 02/15/2020 Specimen Blood Performing Organization Address City/[facility] one Number MAIN LAB [address] [place] [address] * CULTURE-BLOOD W/SENSITIVITY (02/09/2020 4:19 PM CDT) Battery Name BLOOD CULTURE MAIN LAB Specimen BLOOD MAIN LAB Description RIGHT DOUBLE LUMEN PICC LINE PURPLE Special aerobic bottle only MAIN LAB Requests Culture NO GROWTH 5 DAYS MAIN LAB Report Status FINAL MAIN LAB 02/15/2020 Specimen Blood Performing Organization Address [facility] one Number MAIN LAB [address] [place] [address] * URIC ACID (02/09/2020 4:19 PM CDT) Uric Acid 3.2 (L) 4.0 - 8.0 MG/DL MAIN LAB Specimen Blood Performing Organization Address [facility] Ph one Number MAIN LAB [address] [place] [address] * PTT (APTT) (02/09/2020 4:19 PM CDT) APTT 31.3 24.0 - 36.5 SEC MAIN LAB Specimen Blood Performing Organization Address [facility] Ph one Number MAIN LAB [address] [place] [address] * PROTIME INR (PT) (02/09/2020 4:19 PM CDT) INR 1.7 (H) 0.8 - 1.2 MAIN LAB Specimen Blood Performing Organization Address [facility] Ph one Number MAIN LAB [address] [place] [address] * PHOSPHORUS CELLULAR THERAPEUTICS (02/09/2020 4:19 PM CDT) Phosphorus 4.3 2.0 - 4.5 MG/DL MAIN LAB Specimen Blood Performing Organization Address [facility] Ph one Number [facility] MAIN LAB [address] [place] [address] * FIBRINOGEN (02/09/2020 4:19 PM CDT) Pathologist [facility] Fibrinogen 432 (H) 200 - 400 MG/DL K[facility] MAIN LAB Specimen Blood Performing Organization Address [facility] Ph one Number [facility] MAIN LAB [address] [place] [address] * CBC AND DIFF CELLULAR THERAPEUTICS (02/09/2020 4:19 PM CDT) Pathologist [facility] White Blood 81.9 (HH)Comment: Value noted, 4.5 - 11.0 K/UL [facility] MAIN LAB Cells value unchanged RBC 2.33 (L) 4.4 - 5.5 M/UL [facility] MAIN LAB Hemoglobin 7.4 (L) 13.5 - 16.5 GM/DL KU MAIN LAB Hematocrit 23.2 (L) 40 - 50 % K[facility] MAIN LAB MCV 99.4 80 - 100 FL K[facility] MAIN LAB MCH 31.6 26 - 34 PG KU MAIN LAB MCHC 31.8 (L) 32.0 - 36.0 G/DL K[facility] MAIN LAB RDW 18.2 (H) 11 - 15 % K[facility] MAIN LAB Platelet Count 29 (L) 150 - 400 K/UL K[facility] MAIN LAB MPV 8.3 7 - 11 FL K[facility] MAIN LAB Nucleated RBCs 1 K/UL [facility] MAIN LAB Segmented 18 (L) 41 - 77 % K[facility] MAIN LAB Neutrophils Lymphocytes 28 24 - 44 % [facility] MAIN LAB Monocytes 21 (H) 4 - 12 % [facility] MAIN LAB Eosinophil 2 0 - 5 % K[facility] MAIN LAB Myelocyte 1 % KU MAIN LAB Blast 30 % KU MAIN LAB ANISO PRESENT KU MAIN LAB POLY PRESENT KU MAIN LAB Platelet MKD DEC KU MAIN LAB Estimate Absolute 14.74 (H) 1.8 - 7.0 K/UL K[facility] MAIN LAB Neutrophil Count Manual Specimen Blood Performing Organization Address [facility] Ph one Number K[facility] MAIN LAB [address] [place] [address] * BASIC METABOLIC PANEL CELLULAR THERAPEUTICS (02/09/2020 4:19 PM CDT) Pathologist [facility] Sodium 140 137 - 147 MMOL/L K[facility] MAIN LAB Potassium 3.9 3.5 - 5.1 MMOL/L K[facility] MAIN LAB Chloride 110 98 - 110 MMOL/L K[facility] MAIN LAB CO2 21 21 - 30 MMOL/L K[facility] MAIN LAB Anion Gap 9 3 - 12 KU MAIN LAB Glucose 129 (H) 70 - 100 MG/DL KU MAIN LAB Blood Urea 33 (H) 7 - 25 MG/DL KU MAIN LAB Nitrogen Creatinine 1.86 (H) 0.4 - 1.24 MG/DL KU MAIN LAB Calcium 8.1 (L) 8.5 - 10.6 MG/DL KU MAIN LAB eGFR Non 35 (L) >60 mL/min KU MAIN LAB Comment: [place] The eGFR is not validated f or use in drug dosing adjustments. Continue to use estimated creatinine clearance per dosing reference text. Please contact the Clinical Pharmacist for questions. eGFR 43 (L) >60 mL/min KU MAIN LAB [place] Comment: The eGFR is not validated for use in drug dosing adjustments. Continue to use estimated creatinine clearance per dosing reference text. Please contact the Clinical Pharmacist for questions. Specimen Blood Performing Organization Address City/State/Zipcode Ph one Number MAIN LAB [address] [place] [address] * 2-D + DOPPLER ECHOCARDIOGRAM (02/09/2020 2:54 [...] OUTSIDE Systolic Volume LAB Index LVOT peak damon 1.29 m/s OTHER OUTSIDE LAB LVOT peak [...] cm OTHER OUTSIDE LAB MV Peak A Damon 0.72 m/s OTHER OUTSIDE LAB MV Peak E Damon 1.45 m/s OTHER OUTSIDE PW LAB Right [...] CV ECHO LINDA Thurston RN-[facility] OTHER OUTSIDE FIELD SEISMOLOGIST LAB MV mean 4 mmHg OTHER OUTSIDE gradient LAB MV valve area 2.72 cm2 OTHER OUTSIDE P1/2 LAB FS 34.04 28 - 44 % OTHER OUTSIDE LAB EF 57.87 % OTHER OUTSIDE LAB LV mass 259.15 88 - 224 g OTHER OUTSIDE LAB RWT 0.42 <=0.42 OTHER OUTSIDE LAB Aortic valve 1.91 cm2 OTHER OUTSIDE area = LAB AV index 0.50 OTHER OUTSIDE ([place] LAB MV valve area 2.90 cm2 OTHER [...] 34 OTHER OUTSIDE Index LAB Cardiology Siemens [id number] OTHER OUTSIDE Ultrasound LAB Machine Left Ventricle [...] pericardial effusion is seen. Performing Organization Address City/[facility] Ph one Number OTHER OUTSIDE LAB * [...] on 02/09/2020 11:02 AM. Performing Organization Address City/[facility] Ph one Number KU RAD RESULTS * VRE SCREEN (02/09/2020 7:34 AM CDT) Battery Name VRE SCREEN KU MAIN LAB Specimen PERIRECTAL SWAB KU MAIN LAB Description Special NONE KU MAIN LAB Requests Culture NO VRE ISOLATED KU MAIN LAB Report Status FINAL K[facility] MAIN LAB 02/10/2020 Specimen Perirectal Swab Performing Organization Address [facility] Ph one Number MAIN LAB [address] [place] [address] * URIC ACID (02/09/2020 2:12 AM CDT) Uric Acid 3.0 (L) 4.0 - 8.0 MG/DL KU MAIN LAB Specimen Blood Performing Organization Address [facility] one Number MAIN LAB [address] [place] [address] * PTT (APTT) (02/09/2020 2:12 AM CDT) APTT 27.6 24.0 - 36.5 SEC MAIN LAB Specimen Blood Performing Organization Address [facility] one Number MAIN LAB [address] [place] [address] * PROTIME INR (PT) (02/09/2020 2:12 AM CDT) INR 1.5 (H) 0.8 - 1.2 MAIN LAB Specimen Blood Performing Organization Address [facility] one Number MAIN LAB [address] [place] [address] * PHOSPHORUS CELLULAR THERAPEUTICS (02/09/2020 2:12 AM CDT) Phosphorus 4.5 2.0 - 4.5 MG/DL MAIN LAB Specimen Blood Performing Organization Address [facility] Ph one Number MAIN LAB [address] [place] [address] * LDH-LACTATE DEHYDROGENASE (02/09/2020 2:12 AM CDT) Lactate 568 (H) 100 - 210 U/L MAIN LAB Dehydrogenase Specimen Blood Performing Organization Address [facility] Ph one Number MAIN LAB [address] [place] [address] * FIBRINOGEN (02/09/2020 2:12 AM CDT) Fibrinogen 419 (H) 200 - 400 MG/DL MAIN LAB Specimen Blood Performing Organization Address [facility] Ph one Number MAIN LAB [address] [place] [address] * CBC AND DIFF CELLULAR THERAPEUTICS (02/09/2020 2:12 AM CDT) White Blood 76.1 (HH)Comment: Value noted, 4.5 - 11.0 K/UL [facility] MAIN LAB Cells value unchanged RBC 2.43 (L) 4.4 - 5.5 M/UL [facility] MAIN LAB Hemoglobin 7.8 (L) 13.5 - 16.5 GM/DL [facility] MAIN LAB Hematocrit 24.0 (L) 40 - 50 % [facility] MAIN LAB MCV 98.8 80 - 100 FL [facility] MAIN LAB MCH 32.1 26 - 34 PG [facility] MAIN LAB MCHC 32.5 32.0 - 36.0 G/DL [facility] MAIN LAB RDW 17.9 (H) 11 - 15 % [facility] MAIN LAB Platelet Count 39 (L) 150 - 400 K/UL [facility] MAIN LAB MPV 8.6 7 - 11 FL [facility] MAIN LAB Nucleated RBCs 4 K/UL [facility] MAIN LAB Segmented 26 (L) 41 - 77 % [facility] MAIN LAB Neutrophils Bands 2 0 - 10 % [facility] MAIN LAB Lymphocytes 20 (L) 24 - 44 % [facility] MAIN LAB Monocytes 21 (H) 4 - 12 % [facility] MAIN LAB Myelocyte 2 % [facility] MAIN LAB Blast 29 % [facility] MAIN LAB ANISO PRESENT [facility] MAIN LAB Platelet MKD DEC [facility] MAIN LAB Estimate Absolute 21.31 (H) 1.8 - 7.0 K/UL [facility] MAIN LAB Neutrophil Count Manual Specimen Blood Performing Organization Address City/State/[facility] Ph one Number [facility] MAIN LAB [address] [place] [address] * COMPREHENSIVE METABOLIC PANEL CELLULAR THERAPEUTICS (02/09/2020 2:12 AM CDT) Sodium 137 137 - 147 MMOL/L [facility] MAIN LAB Potassium 4.0 3.5 - 5.1 MMOL/L [facility] MAIN LAB Chloride 113 (H) 98 - 110 MMOL/L [facility] MAIN LAB Glucose 131 (H) 70 - 100 MG/DL [facility] MAIN LAB Blood Urea 30 (H) 7 - 25 MG/DL [facility] MAIN LAB Nitrogen Creatinine 1.79 (H) 0.4 - 1.24 MG/DL [facility] MAIN LAB Calcium 8.4 (L) 8.5 - 10.6 MG/DL [facility] MAIN LAB Total Protein 6.3 6.0 - 8.0 G/DL [facility] MAIN LAB Total Bilirubin 1.4 (H) 0.3 - 1.2 MG/DL MAIN LAB Albumin 3.4 (L) 3.5 - 5.0 G/DL MAIN LAB Alk Phosphatase 144 (H) 25 - 110 U/L MAIN LAB AST (SGOT) 35 7 - 40 U/L MAIN LAB CO2 23 21 - 30 MMOL/L MAIN LAB ALT (SGPT) 27 7 - 56 U/L MAIN LAB Anion Gap 1 (L) 3 - 12 MAIN LAB eGFR Non 37 (L) >60 mL/min MAIN LAB Comment: [place] The eGFR is not validated f or use in drug dosing adjustments. Continue to use estimated creatinine clearance per dosing reference text. Please contact the Clinical Pharmacist for questions. eGFR 45 (L) >60 mL/min MAIN LAB [place] Comment: The eGFR is not validated for use in drug dosing adjustments. Continue to use estimated creatinine clearance per dosing reference text. Please contact the Clinical Pharmacist for questions. Specimen Blood Performing Organization Address [facility] one Number MAIN LAB [address] [place] [address] * MAGNESIUM (02/09/2020 2:12 AM CDT) Magnesium 1.9 1.6 - 2.6 mg/dL MAIN LAB Specimen Blood Performing Organization Address [facility] Ph one Number MAIN LAB [address] [place] [phone] * URIC ACID (02/08/2020 3:42 PM CDT) Uric Acid 2.9 (L) 4.0 - 8.0 MG/DL MAIN LAB Specimen Blood Performing Organization Address [facility] Ph one Number MAIN LAB [address] [place] [phone] * PTT (APTT) (02/08/2020 3:42 PM CDT) APTT 27.7 24.0 - 36.5 SEC MAIN LAB Specimen Blood Performing Organization Address [facility] one Number MAIN LAB [address] [place] [phone] * PROTIME INR (PT) (02/08/2020 3:42 PM CDT) INR 1.5 (H) 0.8 - 1.2 MAIN LAB Specimen Blood Performing Organization Address [facility] one Number [facility]U MAIN LAB [address] [place] [address] * PHOSPHORUS CELLULAR THERAPEUTICS (02/08/2020 3:42 PM CDT) Phosphorus 4.5 2.0 - 4.5 MG/DL [facility] MAIN LAB Specimen Blood Performing Organization Address [facility] Ph one Number [facility] MAIN LAB [address] [place] [address] * FIBRINOGEN (02/08/2020 3:42 PM CDT) Fibrinogen 419 (H) 200 - 400 MG/DL [facility] MAIN LAB Specimen Blood Performing Organization Address [facility] one Number [facility] MAIN LAB [address] [place] [address] * CBC AND DIFF CELLULAR THERAPEUTICS (02/08/2020 3:42 PM CDT) White Blood 70.8 (HH)Comment: Value noted, 4.5 - 11.0 K/UL [facility] MAIN LAB Cells value unchanged RBC 2.55 (L) 4.4 - 5.5 M/UL [facility] MAIN LAB Hemoglobin 8.1 (L) 13.5 - 16.5 GM/DL [facility] MAIN LAB Hematocrit 25.2 (L) 40 - 50 % MAIN LAB MCV 98.7 80 - 100 FL MAIN LAB MCH 31.8 26 - 34 PG MAIN LAB MCHC 32.2 32.0 - 36.0 G/DL [facility] MAIN LAB RDW 17.9 (H) 11 - 15 % [facility] MAIN LAB Platelet Count 45 (L) 150 - 400 K/UL MAIN LAB MPV 7.8 7 - 11 FL MAIN LAB Nucleated RBCs 1 K/UL MAIN LAB Segmented 13 (L) 41 - 77 % [facility] MAIN LAB Neutrophils Lymphocytes 20 (L) 24 - 44 % [facility] MAIN LAB Monocytes 30 (H) 4 - 12 % [facility] MAIN LAB Eosinophil 1 0 - 5 % [facility] MAIN LAB Metamyelocyte 7 % [facility] MAIN LAB Myelocyte 2 % [facility] MAIN LAB Blast 27 % [facility] MAIN LAB Normal RBC NORMAL [facility] MAIN LAB Morph Platelet MKD DEC MAIN LAB Estimate Absolute 9.20 (H) 1.8 - 7.0 K/UL [facility] MAIN LAB Neutrophil Count Manual Specimen Blood Performing Organization Address [facility]/Zipcode Ph one Number K[facility] MAIN LAB [address] [place] [phone] * BASIC METABOLIC PANEL CELLULAR THERAPEUTICS (02/08/2020 3:42 PM CDT) Sodium 139 137 - 147 MMOL/L [facility] MAIN LAB Potassium 3.9 3.5 - 5.1 MMOL/L [facility] MAIN LAB Chloride 107 98 - 110 MMOL/L [facility] MAIN LAB CO2 24 21 - 30 MMOL/L [facility] MAIN LAB Anion Gap 8 3 - 12 [facility] MAIN LAB Glucose 131 (H) 70 - 100 MG/DL [facility] MAIN LAB Blood Urea 28 (H) 7 - 25 MG/DL [facility] MAIN LAB Nitrogen Creatinine 1.83 (H) 0.4 - 1.24 MG/DL [facility] MAIN LAB Calcium 8.4 (L) 8.5 - 10.6 MG/DL [facility] MAIN LAB eGFR Non 36 (L) >60 mL/min [facility] MAIN LAB Comment: [place] The eGFR is not validated f or use in drug dosing adjustments. Continue to use estimated creatinine clearance per dosing reference text. Please contact the Clinical Pharmacist for questions. eGFR 44 (L) >60 mL/min [facility] MAIN LAB [place] Comment: The eGFR is not validated for use in drug dosing adjustments. Continue to use estimated creatinine clearance per dosing reference text. Please contact the Clinical Pharmacist for questions. Specimen Blood Performing Organization Address City/State/Zipcode Ph one Number MAIN LAB [address] [place] [address] * TRANSFUSE APHERESIS PLATELETS (02/08/2020 8:48 AM CDT) * TRANSFUSE APHERESIS PLATELETS (02/08/2020 8:48 AM CDT) * CHEST SINGLE VIEW (02/08/2020 6:44 AM CDT) Specimen Impressions Performed At Bilateral reticular and airspace opacit ies, which may represent pulmonary edema [facility] RAD RESULTS or atypical infection. Finalized by Susan Hutchins on 02/08/2020 8:19 AM. Dictated by Sheri Henning M.D. on 02/08/20 8:17 AM. Narrative Performed At CHEST SINGLE VIEW [facility] RAD RESULTS Clinical Indication: Male, 75 years old . AML. Evaluate for pneumonia. Comparison: None available. Findings: Prior median sternotomy and CABG. Enlar gement the cardiac silhouette. Bilateral reticular airspace opacities with patch y areas of consolidation, predominantly in the lower lungs. No pleural effusion or pneumothorax. Thoracic spondylosis. Procedure Note Interface, Radiant Results - 02/08/2020 8:22 AM CDT CHEST SINGLE VIEW Clinical Indication: Male, 75 years old. AML. Evaluate for pneumonia. Comparison: None available. Findings: Prior median sternotomy and CABG. Enlargement the cardiac silhouette. Bilateral reticular airspace opacities with patchy areas of consolidation, predominantly in the lower lungs. No pleural effusion or pneumothorax. Thoracic spondylosis. IMPRESSION Bilateral reticular and airspace opacities, which may represent pulmonary edema or atypical infection. Finalized by Sheri Henning M.D. on 02/08/2020 8:19 AM. Dictated by Sheri Henning M.D. on 02/08/2020 8:17 AM. Performing Organization Address [facility] Ph one Number RAD RESULTS * MAGNESIUM (02/08/2020 6:20 AM CDT) Pathologist [facility] Magnesium 1.9 1.6 - 2.6 mg/dL MAIN LAB Specimen Performing Organization Address [facility] one Number MAIN LAB [address] [place] [address] * TROPONIN-I (02/08/2020 6:20 AM CDT) [facility] Troponin-I 0.64 (H) 0.0 - 0.05 NG/ML MAIN LAB Specimen Blood Performing Organization Address [facility] one Number MAIN LAB [address] [place] [phone] * PREPARE APHERESIS PLATELETS (02/08/2020 3:41 AM CDT) Pathologist [facility] Units Ordered 1 MAIN LAB Unit Number [id number] MAIN LAB Blood Component APHERESIS PLT,LEUKO [facility] MAIN LAB Type REDUCED,IRRADIATED,2ND CONT . Unit Division 0 MAIN LAB Status OF Unit TRANSFUSED MAIN LAB Transfusion OK TO TRANSFUSE MAIN LAB Status Specimen Other (Specify) Performing Organization Address [facility] one Number MAIN LAB [address] [place] [phone] * TROPONIN-I (02/08/2020 2:34 AM CDT) Pathologist [facility] Troponin-I 0.74 (H) 0.0 - 0.05 NG/ML [facility] MAIN LAB Specimen Performing Organization Address [facility] one Number MAIN LAB [address] [place] [address] * URIC ACID (02/08/2020 2:34 AM CDT) Uric Acid 3.3 (L) 4.0 - 8.0 MG/DL [facility] MAIN LAB Specimen Blood Performing Organization Address [facility] Ph one Number MAIN LAB [address] [place] [address] * PTT (APTT) (02/08/2020 2:34 AM CDT) APTT 27.4 24.0 - 36.5 SEC MAIN LAB Specimen Blood Performing Organization Address [facility] one Number MAIN LAB [address] [place] [address] * PROTIME INR (PT) (02/08/2020 2:34 AM CDT) INR 1.5 (H) 0.8 - 1.2 MAIN LAB Specimen Blood Performing Organization Address [facility] one Number MAIN LAB [address] [place] [address] * PHOSPHORUS CELLULAR THERAPEUTICS (02/08/2020 2:34 AM CDT) Phosphorus 5.2 (H) 2.0 - 4.5 MG/DL MAIN LAB Specimen Blood Performing Organization Address [facility] Ph one Number MAIN LAB [address] [place] [address] * LDH-LACTATE DEHYDROGENASE (02/08/2020 2:34 AM CDT) Lactate 556 (H) 100 - 210 U/L MAIN LAB Dehydrogenase Specimen Blood Performing Organization Address [facility] Ph one Number MAIN LAB [address] [place] [address] * FIBRINOGEN (02/08/2020 2:34 AM CDT) Fibrinogen 384 200 - 400 MG/DL MAIN LAB Specimen Blood Performing Organization Address [facility] Ph one Number MAIN LAB [address] [place] [address] * CBC AND DIFF CELLULAR THERAPEUTICS (02/08/2020 2:34 AM CDT) Pathologist [facility] White Blood 68.2 (HH)Comment: Value noted, 4.5 - 11.0 K/UL [facility] MAIN LAB Cells value unchanged RBC 2.57 (L) 4.4 - 5.5 M/UL [facility] MAIN LAB Hemoglobin 8.3 (L) 13.5 - 16.5 GM/DL [facility] MAIN LAB Hematocrit 25.1 (L) 40 - 50 % [facility] MAIN LAB MCV 97.5 80 - 100 FL [facility] MAIN LAB MCH 32.2 26 - 34 PG [facility] MAIN LAB MCHC 33.0 32.0 - 36.0 G/DL [facility] MAIN LAB RDW 18.0 (H) 11 - 15 % [facility] MAIN LAB Platelet Count 27 (L) 150 - 400 K/UL [facility] MAIN LAB MPV 7.9 7 - 11 FL [facility] MAIN LAB Nucleated RBCs 2 K/UL [facility] MAIN LAB Segmented 7 (L) 41 - 77 % [facility] MAIN LAB Neutrophils Bands 8 0 - 10 % [facility] MAIN LAB Lymphocytes 12 (L) 24 - 44 % [facility] MAIN LAB Monocytes 32 (H) 4 - 12 % [facility] MAIN LAB Metamyelocyte 4 % [facility] MAIN LAB Myelocyte 2 % [facility] MAIN LAB Blast 35 % [facility] MAIN LAB ANISO PRESENT [facility] MAIN LAB Platelet MKD DEC [facility] MAIN LAB Estimate Absolute 10.23 (H) 1.8 - 7.0 K/UL [facility] MAIN LAB Neutrophil Count Manual Specimen Blood Performing Organization Address City/State/[facility] Ph one Number [facility] MAIN LAB [address] [facility] [address] * COMPREHENSIVE METABOLIC PANEL CELLULAR THERAPEUTICS (02/08/2020 2:34 AM CDT) Pathologist [facility] Sodium 141 137 - 147 MMOL/L [facility] MAIN LAB Potassium 3.9 3.5 - 5.1 MMOL/L [facility] MAIN LAB Chloride 110 98 - 110 MMOL/L [facility] MAIN LAB Glucose 127 (H) 70 - 100 MG/DL [facility] MAIN LAB Blood Urea 28 (H) 7 - 25 MG/DL [facility] MAIN LAB Nitrogen Creatinine 1.79 (H) 0.4 - 1.24 MG/DL [facility] MAIN LAB Calcium 8.1 (L) 8.5 - 10.6 MG/DL [facility] MAIN LAB Total Protein 6.2 6.0 - 8.0 G/DL [facility] MAIN LAB Total Bilirubin 1.4 (H) 0.3 - 1.2 MG/DL [facility] MAIN LAB Albumin 3.5 3.5 - 5.0 G/DL MAIN LAB Alk Phosphatase 129 (H) 25 - 110 U/L MAIN LAB AST (SGOT) 37 7 - 40 U/L MAIN LAB CO2 22 21 - 30 MMOL/L MAIN LAB ALT (SGPT) 26 7 - 56 U/L MAIN LAB Anion Gap 9 3 - 12 MAIN LAB eGFR Non 37 (L) >60 mL/min MAIN LAB Comment: [place] The eGFR is not validated f or use in drug dosing adjustments. Continue to use estimated creatinine clearance per dosing reference text. Please contact the Clinical Pharmacist for questions. eGFR 45 (L) >60 mL/min MAIN LAB [place] Comment: The eGFR is not validated for use in drug dosing adjustments. Continue to use estimated creatinine clearance per dosing reference text. Please contact the Clinical Pharmacist for questions. Specimen Blood Performing Organization Address [facility] one Number MAIN LAB [address] [place] [address] * TRANSFUSE RBC'S (02/08/2020 2:14 AM CDT) Specimen Blood * TRANSFUSE RBC'S (02/08/2020 2:14 AM CDT) Specimen Blood * BNP (B-TYPE NATRIURETIC PEPTI) (02/08/2020 1:00 AM CDT) B Type 523.0 (H) 0 - 100 PG/ML MAIN LAB Natriuretic Peptide Specimen Blood Performing Organization Address [facility] one Number MAIN LAB [address] [place] [address] * TROPONIN-I (02/08/2020 1:00 AM CDT) Troponin-I 0.69 (H) 0.0 - 0.05 NG/ML MAIN LAB Specimen Blood Performing Organization Address [facility] Ph one Number MAIN LAB [address] [place] [address] * LIPASE (02/08/2020 1:00 AM CDT) Lipase 30 11 - 82 U/L MAIN LAB Specimen Blood Performing Organization Address [facility] Ph one Number MAIN LAB [address] [place] [address] * LIVER FUNCTION PANEL (02/08/2020 1:00 AM CDT) Total Bilirubin 1.3 (H) 0.3 - 1.2 MG/DL MAIN LAB Bilirubin, 0.5 (H) <0.4 MG/DL [facility] MAIN LAB Direct Albumin 3.5 3.5 - 5.0 G/DL MAIN LAB Alk Phosphatase 132 (H) 25 - 110 U/L MAIN LAB AST (SGOT) 36 7 - 40 U/L MAIN LAB ALT (SGPT) 26 7 - 56 U/L MAIN LAB Total Protein 6.1 6.0 - 8.0 G/DL MAIN LAB Specimen Blood Performing Organization Address [facility] one Number MAIN LAB [address] [place] [address] * LACTIC ACID(LACTATE) (02/08/2020 1:00 AM CDT) Lactic Acid 0.9 0.5 - 2.0 MMOL/L MAIN LAB Specimen Blood Performing Organization Address [facility] one Number MAIN LAB [address] [place] [address] * URIC ACID (02/07/2020 4:39 PM CDT) Uric Acid 3.9 (L) 4.0 - 8.0 MG/DL MAIN LAB Specimen Blood Performing Organization Address [facility] one Number MAIN LAB [address] [place] [address] * PTT (APTT) (02/07/2020 4:39 PM CDT) APTT 31.2 24.0 - 36.5 SEC MAIN LAB Specimen Blood Performing Organization Address [facility] Ph one Number MAIN LAB [address] [place] [address] * PROTIME INR (PT) (02/07/2020 4:39 PM CDT) INR 1.5 (H) 0.8 - 1.2 MAIN LAB Specimen Blood Performing Organization Address [facility] Ph one Number MAIN LAB [address] [place] [address] * PHOSPHORUS CELLULAR THERAPEUTICS (02/07/2020 4:39 PM CDT) Phosphorus 4.9 (H) 2.0 - 4.5 MG/DL [facility] MAIN LAB Specimen Blood Performing Organization Address [facility] Ph one Number [facility] MAIN LAB [address] [place] [address] * FIBRINOGEN (02/07/2020 4:39 PM CDT) Pathologist [facility] Fibrinogen 308 200 - 400 MG/DL [facility] MAIN LAB Specimen Blood Performing Organization Address [facility] one Number [facility]U MAIN LAB [address] [place] [address] * CBC AND DIFF CELLULAR THERAPEUTICS (02/07/2020 4:39 PM CDT) Pathologist [facility] White Blood 64.0 (HH)Comment: Value noted, 4.5 - 11.0 K/UL [facility] MAIN LAB Cells value unchanged RBC 2.13 (L) 4.4 - 5.5 M/UL [facility] MAIN LAB Hemoglobin 6.8 (L) 13.5 - 16.5 GM/DL [facility] MAIN LAB Hematocrit 21.6 (L) 40 - 50 % [facility] MAIN LAB MCV 101.7 (H) 80 - 100 FL [facility] MAIN LAB MCH 32.1 26 - 34 PG [facility] MAIN LAB MCHC 31.6 (L) 32.0 - 36.0 G/DL [facility] MAIN LAB RDW 17.9 (H) 11 - 15 % [facility] MAIN LAB Platelet Count 35 (L) 150 - 400 K/UL [facility] MAIN LAB MPV 8.3 7 - 11 FL [facility] MAIN LAB Nucleated RBCs 2 K/UL [facility] MAIN LAB Segmented 10 (L) 41 - 77 % [facility] MAIN LAB Neutrophils Lymphocytes 15 (L) 24 - 44 % [facility] MAIN LAB Monocytes 35 (H) 4 - 12 % [facility] MAIN LAB Eosinophil 1 0 - 5 % [facility] MAIN LAB Basophil 1 0 - 2 % [facility] MAIN LAB Other Cells 38Comment: OTHERS ARE BLASTS % K U MAIN LAB ANISO PRESENT [facility] MAIN LAB POLY PRESENT [facility] MAIN LAB Platelet MKD DEC MAIN LAB Estimate Absolute 6.40 1.8 - 7.0 K/UL [facility] MAIN LAB Neutrophil Count Manual Specimen Blood Performing Organization Address [facility] Ph one Number [facility] MAIN LAB [address] [place] [address] * BASIC METABOLIC PANEL CELLULAR THERAPEUTICS (02/07/2020 4:39 PM CDT) Pathologist [facility] Sodium 141 137 - 147 MMOL/L [facility] MAIN LAB Potassium 3.4 (L) 3.5 - 5.1 MMOL/L [facility] MAIN LAB Chloride 109 98 - 110 MMOL/L [facility] MAIN LAB CO2 23 21 - 30 MMOL/L [facility] MAIN LAB Anion Gap 9 3 - 12 [facility] MAIN LAB Glucose 116 (H) 70 - 100 MG/DL [facility] MAIN LAB Blood Urea 29 (H) 7 - 25 MG/DL [facility] MAIN LAB Nitrogen Creatinine 1.88 (H) 0.4 - 1.24 MG/DL [facility] MAIN LAB Calcium 7.9 (L) 8.5 - 10.6 MG/DL [facility] MAIN LAB eGFR Non 35 (L) >60 mL/min [facility] MAIN LAB Comment: [place] The eGFR is not validated f or use in drug dosing adjustments. Continue to use estimated creatinine clearance per dosing reference text. Please contact the Clinical Pharmacist for questions. eGFR 42 (L) >60 mL/min [facility] MAIN LAB [place] Comment: The eGFR is not validated for use in drug dosing adjustments. Continue to use estimated creatinine clearance per dosing reference text. Please contact the Clinical Pharmacist for questions. Specimen Blood Performing Organization Address City/[facility] Ph one Number MAIN LAB [address] [place] [address] * URIC ACID (02/07/2020 7:00 AM CDT) Uric Acid 5.1 4.0 - 8.0 MG/DL [facility] MAIN LAB Specimen Blood Performing Organization Address City/[facility] one Number [facility] [address] [place] [address] * COMPREHENSIVE METABOLIC PANEL CELLULAR THERAPEUTICS (02/07/2020 6:00 AM CDT) Sodium 142 137 - 147 MMOL/L [facility] MAIN LAB Potassium 3.7 3.5 - 5.1 MMOL/L [facility] MAIN LAB Chloride 109 98 - 110 MMOL/L [facility] MAIN LAB Glucose 109 (H) 70 - 100 MG/DL [facility] MAIN LAB Blood Urea 24 7 - 25 MG/DL [facility] MAIN LAB Nitrogen Creatinine 1.55 (H) 0.4 - 1.24 MG/DL [facility] MAIN LAB Calcium 8.2 (L) 8.5 - 10.6 MG/DL [facility] MAIN LAB Total Protein 5.8 (L) 6.0 - 8.0 G/DL [facility] MAIN LAB Total Bilirubin 1.2 0.3 - 1.2 MG/DL [facility] MAIN LAB Albumin 3.3 (L) 3.5 - 5.0 G/DL [facility] MAIN LAB Alk Phosphatase 102 25 - 110 U/L [facility] MAIN LAB AST (SGOT) 31 7 - 40 U/L [facility] MAIN LAB CO2 22 21 - 30 MMOL/L MAIN LAB ALT (SGPT) 23 7 - 56 U/L [facility] MAIN LAB Anion Gap 11 3 - 12 MAIN LAB eGFR Non 44 (L) >60 mL/min MAIN LAB Comment: [place] The eGFR is not validated f or use in drug dosing adjustments. Continue to use estimated creatinine clearance per dosing reference text. Please contact the Clinical Pharmacist for questions. eGFR 53 (L) >60 mL/min MAIN LAB [place] Comment: The eGFR is not validated for use in drug dosing adjustments. Continue to use estimated creatinine clearance per dosing reference text. Please contact the Clinical Pharmacist for questions. Specimen Performing Organization Address City/[facility] Ph one Number MAIN LAB [address] [place] [address] * LDH-LACTATE DEHYDROGENASE (02/07/2020 6:00 AM CDT) Lactate 468 (H) 100 - 210 U/L MAIN LAB Dehydrogenase Specimen Blood Performing Organization Address City/[facility] Ph one Number MAIN LAB [address] [place] [address] * PHOSPHORUS CELLULAR THERAPEUTICS (02/07/2020 6:00 AM CDT) Phosphorus 5.5 (H) 2.0 - 4.5 MG/DL MAIN LAB Specimen Blood Performing Organization Address [facility] Ph one Number MAIN LAB [address] [place] [address] * URIC ACID (02/07/2020 6:00 AM CDT) Uric Acid 4.0 4.0 - 8.0 MG/DL MAIN LAB Specimen Blood Performing Organization Address [facility] Ph one Number MAIN LAB [address] [place] [address] * PTT (APTT) (02/07/2020 6:00 AM CDT) APTT 32.0 24.0 - 36.5 SEC MAIN LAB Specimen Blood Performing Organization Address [facility] Ph one Number MAIN LAB [address] [place] [address] * PROTIME INR (PT) (02/07/2020 6:00 AM CDT) INR 1.5 (H) 0.8 - 1.2 MAIN LAB Specimen Blood Performing Organization Address [facility] Ph one Number [facility] MAIN LAB [address] [place] [address] * FIBRINOGEN (02/07/2020 6:00 AM CDT) Fibrinogen 316 200 - 400 MG/DL [facility] MAIN LAB Specimen Blood Performing Organization Address [facility] Ph one Number MAIN LAB [address] [place] [address] * CBC AND DIFF CELLULAR THERAPEUTICS (02/07/2020 6:00 AM CDT) White Blood 65.0 (HH)Comment: Value noted, 4.5 - 11.0 K/UL [facility] MAIN LAB Cells value unchanged RBC 2.00 (L) 4.4 - 5.5 M/UL MAIN LAB Hemoglobin 6.7 (L) 13.5 - 16.5 GM/DL MAIN LAB Hematocrit 20.9 (L) 40 - 50 % MAIN LAB MCV 104.5 (H) 80 - 100 FL MAIN LAB MCH 33.5 26 - 34 PG MAIN LAB MCHC 32.0 32.0 - 36.0 G/DL MAIN LAB RDW 15.9 (H) 11 - 15 % [facility] MAIN LAB Platelet Count 43 (L) 150 - 400 K/UL MAIN LAB MPV 8.2 7 - 11 FL MAIN LAB Nucleated RBCs 3 K/UL MAIN LAB Segmented 19 (L) 41 - 77 % MAIN LAB Neutrophils Bands 2 0 - 10 % MAIN LAB Lymphocytes 16 (L) 24 - 44 % MAIN LAB Monocytes 28 (H) 4 - 12 % MAIN LAB Eosinophil 3 0 - 5 % MAIN LAB Myelocyte 1 % MAIN LAB Other Cells 31Comment: OTHERS ARE BLASTS % K U MAIN LAB ANISO PRESENT MAIN LAB POLY PRESENT MAIN LAB MACRO PRESENT MAIN LAB Platelet MKD DEC MAIN LAB Estimate Absolute 13.65 (H) 1.8 - 7.0 K/UL MAIN LAB Neutrophil Count Manual Specimen Blood Performing Organization Address City/[facility]/Zipcode Ph one Number [facility] [address] [place] [address] * TRANSFUSE APHERESIS PLATELETS (02/07/2020 2:36 AM CDT) * TRANSFUSE APHERESIS PLATELETS (02/07/2020 2:36 AM CDT) * BLOOD TYPE CONFIRMATION - ORDER ONLY IF REQUESTED BY LAB (02/06/2020 8:42 PM CDT) Pathologist [facility] ABO/RH(D) B POS [facility] Specimen Blood Performing Organization Address [facility] Ph one Number [facility] [address] [place] [address] * CHROMOSOMES BLD HEMATOLOGIC (02/06/2020 8:03 PM CDT) Pathologist [facility] Chromosomes Cytogenetics Report Available [facility] Blood in Epic Hematologic Specimen Narrative Performed At This result has an attachment that is n ot available. Performing Organization Address [facility] Ph one Number [facility] [address] [place] [address] * FLOW CYTOMETRY (02/06/2020 8:03 PM CDT) Pathologist [facility] PATHOLOGY [facility] [email or web address] Damian Johnson MD, Director of Flow Cytometry Laboratory Department of Pathology and Laboratory Medicine [address] [place] [address] Surgical Pathology Office: [phone] FLOW CYTOMETRY REPORT NAME: JHONY CHI SURG PATH #: [id number] MR #: [id number] SPECIMEN CLASS: LC BILLING #: [id number] ALT ID #: LOCATION: 42 DATE OF PROCEDURE: 02/06/2020 AGE: 75 SEX: M DATE RECEIVED: 02/07/2020 : 1945 TIME RECEIVED: 08:54 PHYSICIAN: Charlette Zhu APRN DATE OF REPORT: 02/07/2020 COPY TO: KIMBERLEY STARK DATE OF PRINTIN02/07/2020 Material Received: A: Peripheral [...] in this report. +++Electronically Signed Out By+++ pmw/02/07/2020 Interpreted by: Jordon Khan MD 02/07/2020 ############################## [...] 0; CD20 = 0; cyCD22 = 1; kvNJ70d = 0 [place] = 0; Lambda = 0; [place]:Lambda ratio = n/a T Cell Associated Markers [...] and its performance characteristics determined by the [facility] Flow Cytometry Laboratory. It has not been cleared or approved by the U.S. Food and Drug Administration (FDA). The FDA has determined that such clearance or approval is not necessary. Specimen Performing Organization Address [facility] Ph one Number [facility] [address] [place] [address] * PERIPHERAL SMEAR (02/06/2020 8:03 PM CDT) Peripheral INCREASED BLASTS (54%). 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 Pathologist INTERPRETED BY JORDON KHAN [facility] N LAB Signature M.D. By the PATH SIGNATURE ABOVE, I attest that I have personally formulated the final interpretation expressed in this report and that the above diagnosis is based upon my examination of the slides and/or other material indicated in this report. Specimen Performing Organization Address City/[facility] Ph one Number [facility] [address] [place] [address] * CBC AND DIFF (02/06/2020 8:03 PM CDT) White Blood 82.3 (HH) 4.5 - 11.0 K/UL [facility]U MAIN LAB Cells Comment: CRITICAL VALUE CALLED TO AND READ BACK BY/TIME/TECH CHINA CASTILLO at 02/06/2020 21:21:38 by 983 RBC 2.35 (L) 4.4 - 5.5 M/UL MAIN LAB Hemoglobin 7.7 (L) 13.5 - 16.5 GM/DL MAIN LAB Hematocrit 24.5 (L) 40 - 50 % MAIN LAB MCV 104.2 (H) 80 - 100 FL MAIN LAB MCH 32.8 26 - 34 PG MAIN LAB MCHC 31.5 (L) 32.0 - 36.0 G/DL MAIN LAB RDW 15.9 (H) 11 - 15 % MAIN LAB Platelet Count 31 (L) 150 - 400 K/UL MAIN LAB MPV 8.5 7 - 11 FL MAIN LAB Nucleated RBCs 4 K/UL MAIN LAB Segmented 11 (L) 41 - 77 % MAIN LAB Neutrophils Bands 1 0 - 10 % MAIN LAB Lymphocytes 18 (L) 24 - 44 % MAIN LAB Monocytes 27 (H) 4 - 12 % [facility] Eosinophil 1 0 - 5 % MAIN LAB Myelocyte 1 % MAIN LAB Other Cells 41 % MAIN LAB Comment: OTHERS ARE BLASTS CRITICAL VALUE CALLED TO AND READ BACK BY/TIME/TECH Dulce ACUNA/1346/64 ANISO PRESENT MAIN LAB POLY PRESENT [facility] Platelet MKD DEC MAIN LAB Estimate Absolute 9.87 (H) 1.8 - 7.0 K/UL MAIN LAB Neutrophil Count Manual Specimen Performing Organization Address City/State/Zipcode Ph one Number MAIN LAB [address] [place] [address] * LEUKEMIA-LYMPHOMA PANEL BLOOD (02/06/2020 8:03 PM CDT) Leuk/Lymph SEE PATHOLOGY REPORT MAIN LAB Interpretation Specimen/LLM BLOOD MAIN LAB Specimen Performing Organization Address City/[facility]/Zipcode Ph one Number MAIN LAB [address] [place] [address] * TYPE & CROSSMATCH (02/06/2020 8:03 PM CDT) Units Ordered 2 MAIN LAB Crossmatch 02/09/2020 MAIN LAB Expires Record Check 2ND TYPE REQUIRED MAIN LAB ABO/RH(D) B POS MAIN LAB Antibody Screen NEG [facility]U MAIN LAB Electronic YES [facility]U MAIN LAB Crossmatch Unit Number [id number] [facility] MAIN LAB Blood Component RBC,ADSOL,LEUKO [facility] MAIN [facility] Type REDUCED,IRRADIATED Unit Division 0 [facility]U MAIN LAB Status OF Unit TRANSFUSED [facility] MAIN LAB Transfusion OK TO TRANSFUSE KU MAIN LAB Status Crossmatch COMPATIBLE,ELECTRONIC MAIN LAB Result Unit Number [id number] KU MAIN LAB Blood Component RBC,ADSOL,LEUKO [facility] MAIN LAB Type REDUCED,IRRADIATED Unit Division 0 KU MAIN LAB Status OF Unit TRANSFUSED KU MAIN LAB Transfusion OK TO TRANSFUSE KU MAIN LAB Status Crossmatch COMPATIBLE,ELECTRONIC MAIN LAB Result Specimen Blood Performing Organization Address City/State/[facility] Ph one Number [facility] LAB [address] [place] [address] * CHROMOSOMES FISH DNA PROBE-BLOOD (02/06/2020 8:03 PM CDT) Chromosomes Cytogenetics Report Available MAIN LAB Fish DNA in Epic Probe-Blood Specimen Blood Narrative Performed At This result has an attachment that is n ot available. Performing Organization Address City/State/Zipcode Ph one Number MAIN LAB [address] [place] [address] * LDH-LACTATE DEHYDROGENASE (02/06/2020 8:03 PM CDT) Lactate 569 (H) 100 - 210 U/L MAIN LAB Dehydrogenase Specimen Blood Performing Organization Address City/[facility] Ph one Number MA[facility] LAB [address] [place] [address] * PHOSPHORUS CELLULAR THERAPEUTICS (02/06/2020 8:03 PM CDT) Phosphorus 4.8 (H) 2.0 - 4.5 MG/DL KU MAIN LAB Specimen Blood Performing Organization Address City/State/Zipcode Ph one Number MAIN LAB [address] [place] [address] * URIC ACID (02/06/2020 8:03 PM CDT) Uric Acid 9.6 (H) 4.0 - 8.0 MG/DL MAIN LAB Specimen Blood Performing Organization Address City/[facility]/Zipcode Ph one Number MAIN LAB [address] [place] [address] * PTT (APTT) (02/06/2020 8:03 PM CDT) APTT 33.1 24.0 - 36.5 SEC MAIN LAB Specimen Blood Performing Organization Address [facility] one Number MAIN LAB [address] [place] [address] * PROTIME INR (PT) (02/06/2020 8:03 PM CDT) INR 1.5 (H) 0.8 - 1.2 MAIN LAB Specimen Blood Performing Organization Address [facility] one Number MAIN LAB [address] [place] [address] * FIBRINOGEN (02/06/2020 8:03 PM CDT) Fibrinogen 354 200 - 400 MG/DL MAIN LAB Specimen Blood Performing Organization Address [facility] one Number MAIN LAB [address] [place] [id number] * BASIC METABOLIC PANEL CELLULAR THERAPEUTICS (02/06/2020 8:03 PM CDT) Sodium 139 137 - 147 MMOL/L MAIN LAB Potassium 3.5 3.5 - 5.1 MMOL/L MAIN LAB Chloride 106 98 - 110 MMOL/L MAIN LAB CO2 22 21 - 30 MMOL/L KU MAIN LAB Anion Gap 11 3 - 12 MAIN LAB Glucose 114 (H) 70 - 100 MG/DL MAIN LAB Blood Urea 20 7 - 25 MG/DL MAIN LAB Nitrogen Creatinine 1.63 (H) 0.4 - 1.24 MG/DL MAIN LAB Calcium 8.7 8.5 - 10.6 MG/DL MAIN LAB eGFR Non 41 (L) >60 mL/min MAIN LAB Comment: [place] The eGFR is not validated f or use in drug dosing adjustments. Continue to use estimated creatinine clearance per dosing reference text. Please contact the Clinical Pharmacist for questions. eGFR 50 (L) >60 mL/min MAIN LAB [place] Comment: The eGFR is not validated for use in drug dosing adjustments. Continue to use estimated creatinine clearance per dosing reference text. Please contact the Clinical Pharmacist for questions. Specimen Blood Performing Organization Address [facility] one Number MAIN LAB [address] [place] [address] * PREPARE APHERESIS PLATELETS (02/06/2020 7:06 PM CDT) Units Ordered 1 MAIN LAB Unit Number [id number] MAIN LAB Blood Component APHERESIS PLT,LEUKO KU MAIN LAB Type REDUCED,1ST CONT. Unit Division 0 MAIN LAB Status OF Unit REL FROM ALLOC KU MAIN LAB Transfusion OK TO TRANSFUSE KU MAIN LAB Status Unit Number [id number] MAIN LAB Blood Component APHERESIS PLT,LEUKO ANTOLIN MAIN LAB Type REDUCED,IRRADIATED,2ND CONT . Unit Division 0 MAIN LAB Status OF Unit TRANSFUSED KU MAIN LAB Transfusion OK TO TRANSFUSE MAIN LAB Status Specimen Other (Specify) Performing Organization Address City/[facility] one Number MAIN LAB [address] [place] [address] * VRE SCREEN (02/06/2020 7:00 PM CDT) Battery Name VRE SCREEN MAIN LAB Specimen PERIRECTAL SWAB MAIN LAB Description Special NONE MAIN LAB Requests Culture NO VRE ISOLATED MAIN LAB Report Status FINAL MAIN LAB 02/08/2020 Specimen Perirectal Swab Performing Organization Address City/[facility] Ph one Number MAIN LAB [address] [place] [address] * TELEMETRY STRIPS-SCAN (02/06/2020 12:00 AM CDT) [...] available. Ordered by an unspecified provider. * PATHOLOGY REPORTS FROM OUTSIDE SCAN (02/06/2020 12:00 AM CDT) Narrative Performed At This result has an attachment that is n ot available. Ordered by an unspecified provider. 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 documented in this encounter Administered Medications Action Date Dose Rate Site Medication Order MAR Action 02/14/2020 1:20 AM CDT 650 mg acetaminophen (TYLENOL) tablet 650 mg Given 650 mg, Oral, EVERY 6 HOURS PRN, Starting Sun02/06/20 at 1820, Until Sun02/23/20 at 1600, Other..., temp > or equal to 38.1, Notify provider of fever prior to administering if first fever since hospitalization or if > 24 hours since last fever., 650 mg Given 02/10/2020 9:19 PM CDT 650 mg Given 02/09/2020 4:46 PM CDT 02/07/2020 11:55 PM CDT 30 mL acetaminophen/lidocaine/antacid DS(#) Given (GI COCKTAIL) 1:1:3 suspension 30 mL 30 mL, Oral, ONCE, 1 dose, Omega 02/08/20 at 0000, 30mL (1:1:3)=192mg/6mL acetamin-6mL 2% vis lidocaine-18mL Antacid DS, 02/15/2020 8:20 AM CDT 400 mg acyclovir (ZOVIRAX) tablet 400 mg Given 400 mg, Oral, TWICE DAILY, First dose (after last modification) on Sun 0 at 2100, Until Discontinued 400 mg Given 02/14/2020 8:39 PM CDT 400 mg Given 02/14/2020 9:56 AM CDT 02/23/2020 9:00 AM CDT 800 mg acyclovir (ZOVIRAX) tablet 800 mg Given 800 mg, Oral, TWICE DAILY, First dose (after last modification) on Sun 0 at 2100, Until Discontinued 800 mg Given 02/22/2020 8:10 PM CDT 800 mg Given 02/22/2020 8:11 AM CDT albuterol 0.5% (PROVENTIL) nebulizer solution 2.5 mg 2.5 mg, Inhalation, RT EVERY 4 HOURS PRN, Starting Estefani 02/19/20 at 1001, Until 02/23/20 at 1600, Signs and Symptoms of Acute Airway Obstruction, When administered by RT, will be per RT policy., 02/18/2020 11:34 AM CDT 2 puffs albuterol sulfate (PROAIR HFA) inhaler 2 Given puff 2 puff, Inhalation, RT EVERY 4 HOURS PRN, Starting Estefani 02/12/20 at 1336, Unti l Estefani 02/19/20 at 1001, RT PROTOCOL, When administered by RT, will be per RT policy., 2 puffs Given 02/14/2020 8:32 PM CDT 2 puffs Given 02/13/2020 11:49 AM CDT 02/14/2020 9:56 AM CDT 300 mg allopurinoL (ZYLOPRIM) tablet 300 mg Given 300 mg, Oral, DAILY, 8 doses, First dos e on 02/07/20 at 0900, Last dose on Sa t 02/14/20 at 0900 300 mg Given 02/13/2020 9:15 AM CDT 300 mg Given 02/12/2020 9:29 AM CDT 02/23/2020 9:00 AM CDT 300 mg allopurinoL (ZYLOPRIM) tablet 300 mg Given 300 mg, Oral, DAILY, First dose (after last reorder) on 02/15/20 at 0900, Until Discontinued 300 mg Given 02/22/2020 8:11 AM CDT 300 mg Given 02/21/2020 8:18 AM CDT 02/06/2020 9:23 PM CDT 600 mg allopurinoL (ZYLOPRIM) tablet 600 mg Given 600 mg, Oral, ONCE, 1 dose, Sun02/06/20 at 1830 02/09/2020 5:11 AM CDT 30 mL alum/mag hydroxide/simeth (MYLANTA) oral Given suspension 30 mL 30 mL, Oral, EVERY 6 HOURS PRN, Starting Sun02/06/20 at 1820, Until 02/23/20 at 1600, Indigestion/Heartburn 02/23/2020 9:00 AM CDT 5 mg amLODIPine (NORVASC) tablet 5 mg Given 5 mg, Oral, DAILY, First dose on Sun02/20/20 at 1215, Until Discontinued, NURSING: Please educate patient and document: Do not give with grapefruit juice., 5 mg Given 02/22/2020 8:11 AM CDT 5 mg Given 02/21/2020 8:18 AM CDT 02/22/2020 5:00 PM CDT 100 mg benzonatate (TESSALON PERLES) capsule Given 100 mg 100 mg, Oral, THREE TIMES DAILY PRN, Starting Sun02/13/20 at 1243, Until Sun02/23/20 at 1600, Cough 100 mg Given 02/22/2020 8:18 AM CDT 100 mg Given 02/21/2020 10:08 AM CDT 02/13/2020 5:03 PM CDT 1,334 mg calcium acetate(phosphat bind) (PHOSLO) Given capsule 1,334 mg 1,334 mg, Oral, THREE TIMES DAILY WITH MEALS, 11 doses, First dose on Sun02/10/20 at 1245, Last dose on Sun02/13/20 at 1800, Each cap delivers 169m g elemental Calcium, 1,334 mg Given 02/13/2020 11:45 AM CDT 1,334 mg Given 02/13/2020 9:15 AM CDT 02/15/2020 6:01 AM CDT 2 g 200 mL/hr cefepime (MAXIPIME) 2 g in sodium Given - New chloride 0.9% (NS) 100 mL IVPB (MB+) Bag 2 g, Intravenous, 100 mL, Administer over 30 Minutes, EVERY 12 HOURS, First dose on Sun02/09/20 at 1730, Until Discontinued 2 g 200 mL/hr Given - New Bag 02/14/2020 5:00 PM CDT 2 g 200 mL/hr Given - New Bag 02/14/2020 5:01 AM CDT 02/09/2020 9:03 AM CDT 250 mg cefuroxime (CEFTIN) tablet 250 mg Given 250 mg, Oral, TWICE DAILY, First dose (after last modification) on Sun 0 at 2100, Until Discontinued 250 mg Given 02/08/2020 9:03 PM CDT 02/09/2020 4:48 PM CDT 49.2 mg 110 mL/hr decitabine (DACOGEN) 49.2 mg in sodium Given - New chloride 0.9% (NS) 109.84 mL IVPB Bag 49.2 mg (20 mg/m2 2.46 m2 Treatment plan recorded BSA), Intravenous, 109.84 mL, Administer over 1 Hours, ONCE, 1 dose, 02/09/20 at 1630, NURSING: To be administered by Chemotherapy Competency-validated nurse . NOTE: This is a HIGH ALERT Medication. SPECIAL TUBING REQUIRED , 02/10/2020 1:58 PM CDT 49.2 mg 110 mL/hr decitabine (DACOGEN) 49.2 mg in sodium Given - New chloride 0.9% (NS) 109.84 mL IVPB Bag 49.2 mg (20 mg/m2 2.46 m2 Treatment plan recorded BSA), Intravenous, 109.84 mL, Administer over 1 Hours, ONCE, 1 dose, 02/10/20 at 1400, NURSING: To be administered by Chemotherapy Competency-validated nurse . NOTE: This is a HIGH ALERT Medication. SPECIAL TUBING REQUIRED , 02/11/2020 2:20 PM CDT 49.2 mg 110 mL/hr decitabine (DACOGEN) 49.2 mg in sodium Given - New chloride 0.9% (NS) 109.84 mL IVPB Bag 49.2 mg (20 mg/m2 2.46 m2 Treatment plan recorded BSA), Intravenous, 109.84 mL, Administer over 1 Hours, ONCE, 1 dose, 02/11/20 at 1400, NURSING: To be administered by Chemotherapy Competency-validated nurse . NOTE: This is a HIGH ALERT Medication. SPECIAL TUBING REQUIRED , 02/12/2020 1:57 PM CDT 49.2 mg 110 mL/hr decitabine (DACOGEN) 49.2 mg in sodium Given - New chloride 0.9% (NS) 109.84 mL IVPB Bag 49.2 mg (20 mg/m2 2.46 m2 Treatment plan recorded BSA), Intravenous, 109.84 mL, Administer over 1 Hours, ONCE, 1 dose, Estefani 02/12/20 at 1400, NURSING: To be administered by Chemotherapy Competency-validated nurse . NOTE: This is a HIGH ALERT Medication. SPECIAL TUBING REQUIRED , 02/13/2020 2:17 PM CDT 49.2 mg 110 mL/hr decitabine (DACOGEN) 49.2 mg in sodium Given - New chloride 0.9% (NS) 109.84 mL IVPB Bag 49.2 mg (20 mg/m2 2.46 m2 Treatment plan recorded BSA), Intravenous, 109.84 mL, Administer over 1 Hours, ONCE, 1 dose, 02/13/20 at 1400, NURSING: To be administered by Chemotherapy Competency-validated nurse . NOTE: This is a HIGH ALERT Medication. SPECIAL TUBING REQUIRED , 02/14/2020 3:08 PM CDT 49.2 mg 110 mL/hr decitabine (DACOGEN) 49.2 mg in sodium Given - New chloride 0.9% (NS) 109.84 mL IVPB Bag 49.2 mg (20 mg/m2 2.46 m2 Treatment plan recorded BSA), Intravenous, 109.84 mL, Administer over 1 Hours, ONCE, 1 dose, 02/14/20 at 1400, NURSING: To be administered by Chemotherapy Competency-validated nurse . NOTE: This is a HIGH ALERT Medication. SPECIAL TUBING REQUIRED , 02/15/2020 2:31 PM CDT 49.2 mg 110 mL/hr decitabine (DACOGEN) 49.2 mg in sodium Given - New chloride 0.9% (NS) 109.84 mL IVPB Bag 49.2 mg (20 mg/m2 2.46 m2 Treatment plan recorded BSA), Intravenous, 109.84 mL, Administer over 1 Hours, ONCE, 1 dose, Omega 02/15/20 at 1400, NURSING: To be administered by Chemotherapy Competency-validated nurse . NOTE: This is a HIGH ALERT Medication. SPECIAL TUBING REQUIRED , 02/16/2020 1:50 PM CDT 49.2 mg 110 mL/hr decitabine (DACOGEN) 49.2 mg in sodium Given - New chloride 0.9% (NS) 109.84 mL IVPB Bag 49.2 mg (20 mg/m2 2.46 m2 Treatment plan recorded BSA), Intravenous, 109.84 mL, Administer over 1 Hours, ONCE, 1 dose, 02/16/20 at 1400, NURSING: To be administered by Chemotherapy Competency-validated nurse . NOTE: This is a HIGH ALERT Medication. SPECIAL TUBING REQUIRED , 02/17/2020 1:55 PM CDT 49.2 mg 110 mL/hr decitabine (DACOGEN) 49.2 mg in sodium Given - New chloride 0.9% (NS) 109.84 mL IVPB Bag 49.2 mg (20 mg/m2 2.46 m2 Treatment plan recorded BSA), Intravenous, 109.84 mL, Administer over 1 Hours, ONCE, 1 dose, 02/17/20 at 1400, NURSING: To be administered by Chemotherapy Competency-validated nurse . NOTE: This is a HIGH ALERT Medication. SPECIAL TUBING REQUIRED , 02/18/2020 12:52 PM CDT 49.2 mg 110 mL/hr decitabine (DACOGEN) 49.2 mg in sodium Given - New chloride 0.9% (NS) 109.84 mL IVPB Bag 49.2 mg (20 mg/m2 2.46 m2 Treatment plan recorded BSA), Intravenous, 109.84 mL, Administer over 1 Hours, ONCE, 1 dose, 02/18/20 at 1100, NURSING: To be administered by Chemotherapy Competency-validated nurse . NOTE: This is a HIGH ALERT Medication. SPECIAL TUBING REQUIRED , dextran 70/hypromellose (GENTEAL TEARS) ophthalmic solution 1-2 drop 1-2 drop, Both Eyes, EVERY 8 HOURS PRN , Starting 02/21/20 at 0144, Until 02/23/20 at 1600, Dry Eyes 02/15/2020 8:20 AM CDT 200 mg fluconazole (DIFLUCAN) tablet 200 mg Given 200 mg, Oral, DAILY, First dose on 02/09/20 at 0900, Until Discontinued 200 mg Given 02/14/2020 9:56 AM CDT 200 mg Given 02/13/2020 9:15 AM CDT 02/08/2020 8:27 AM CDT 400 mg fluconazole (DIFLUCAN) tablet 400 mg Given 400 mg, Oral, DAILY, First dose on 02/08/20 at 0900, Until Discontinued 02/08/2020 9:58 AM CDT 40 mg furosemide (LASIX) injection 40 mg Given 40 mg, 4 mL, Intravenous, ONCE, 1 dose, 02/08/20 at 1015, PROTECT FROM LIGHT , 02/09/2020 10:45 AM CDT 40 mg furosemide (LASIX) injection 40 mg Given 40 mg, 4 mL, Intravenous, ONCE, 1 dose, 02/09/20 at 1130, PROTECT FROM LIGHT , 02/12/2020 11:41 AM CDT 40 mg furosemide (LASIX) injection 40 mg Given 40 mg, 4 mL, Intravenous, ONCE, 1 dose, Estefani 02/12/20 at 1045, PROTECT FROM LIGHT Administer after PRBC transfusion., 02/13/2020 11:45 AM CDT 40 mg furosemide (LASIX) injection 40 mg Given 40 mg, 4 mL, Intravenous, ONCE, 1 dose, Sun02/13/20 at 1215, PROTECT FROM LIGHT , 02/15/2020 4:52 PM CDT 40 mg furosemide (LASIX) injection 40 mg Given 40 mg, 4 mL, Intravenous, ONCE, 1 dose, 02/15/20 at 1730, PROTECT FROM LIGHT , 02/17/2020 1:23 PM CDT 40 mg furosemide (LASIX) injection 40 mg Given 40 mg, 4 mL, Intravenous, ONCE, 1 dose, 02/17/20 at 1315, PROTECT FROM LIGHT , 02/20/2020 1:49 PM CDT 40 mg furosemide (LASIX) injection 40 mg Given 40 mg, 4 mL, Intravenous, ONCE, 1 dose, Sun02/20/20 at 1200, PROTECT FROM LIGHT, FUROSEMIDE 10 MG/ML IJ SOLN (Cabinet Override) NOW, 1 dose, Sun02/09/20 at 1045, Created by cabinet override, Created by cabinet override, 02/22/2020 5:00 PM CDT 200 mg guaiFENesin (ROBITUSSIN) oral solution Given 200 mg 200 mg, Oral, EVERY 6 HOURS PRN, Starting 02/14/20 at 2309, Until 02/23/20 at 1600, Cough, Congestion 200 mg Given 02/22/2020 8:18 AM CDT 200 mg Given 02/21/2020 10:08 AM CDT 02/07/2020 1:56 PM CDT 2,000 mg hydroxyurea (HYDREA) capsule 2,000 mg Given 2,000 mg, Oral, ONCE, 1 dose, 02/07/20 at 1315 02/09/2020 9:01 PM CDT 2,000 mg hydroxyurea (HYDREA) capsule 2,000 mg Given 2,000 mg, Oral, TWICE DAILY, 4 doses, First dose on 02/08/20 at 0900, Last dose on Sun02/09/20 at 2100 2,000 mg Given 02/09/2020 9:03 AM CDT 2,000 mg Given 02/08/2020 9:03 PM CDT 02/06/2020 9:23 PM CDT 3,000 mg hydroxyurea (HYDREA) capsule 3,000 mg Given 3,000 mg, Oral, ONCE, 1 dose, 02/06/20 at 2000 02/12/2020 3:01 PM CDT INHALATIONAL SPACING DEVICE MISC SPCR Given (Cabinet Override) NOW, 1 dose, Estefani 02/12/20 at 1500, Created by cabinet override, Created by cabinet override, 02/07/2020 4:34 PM CDT 500 mg levoFLOXacin (LEVAQUIN) tablet 500 mg Given 500 mg, Oral, EVERY 24 HOURS, First dos e (after last modification) on Sat 0 at 1830, Until Discontinued, NURSING: Please educate patient and document: Give 1 hour before or 2 hours after meals. If patient is receiving tube feedings, hold tube feedings 1 hour before and 2 hours after dose. Do not give within 2 hours of antacids, magnesium, calcium, iron, zinc, or vitamins containing these minerals., 02/23/2020 9:00 AM CDT 750 mg levoFLOXacin (LEVAQUIN) tablet 750 mg Given 750 mg, Oral, EVERY 24 HOURS, First dos e (after last modification) on 02/22/20 at 0800, Until Discontinued, NURSING: Please educate patient and document: Give 1 hour before or 2 hours after meals. If patient is receiving tube feedings, hold tube feedings 1 hour before and 2 hours after dose. Do not give within 2 hours of antacids, magnesium, calcium, iron, zinc, or vitamins containing these minerals., 750 mg Given 02/22/2020 8:11 AM CDT 02/08/2020 9:03 PM CDT 20 mg melatonin tablet 10-20 mg Given 10-20 mg, Oral, AT BEDTIME DAILY, First dose (after last modification) on 02/08/20 at 0000, Until Discontinued 10 mg Given 02/08/2020 12:50 AM CDT 02/18/2020 9:53 PM CDT 3 mg melatonin tablet 3 mg Given 3 mg, Oral, AT BEDTIME PRN, Starting Mo n 02/16/20 at 2325, Until Estefani 02/19/20 at 2036, Insomnia 3 mg Given 02/16/2020 11:27 PM CDT 02/21/2020 10:04 PM CDT 10 mg melatonin tablet 5-20 mg Given 5-20 mg, Oral, AT BEDTIME PRN, Starting Estefani 02/19/20 at 2036, Until 02/23/20 at 1600, Insomnia 10 mg Given 02/20/2020 9:31 PM CDT 5 mg Given 02/19/2020 8:56 PM CDT 02/21/2020 10:04 PM CDT 1 g 33.3 mL/hr meropenem (MERREM) 1 g in sodium Given - New chloride 0.9% (NS) 100 mL IVPB Bag (MB+)(EXTENDED INFUSION) 1 g, 100 mL, Intravenous, Administer over 3 Hours, EVERY 8 HOURS, 19 doses, First dose on 02/15/20 at 2200, Last dose on 02/21/20 at 2200 1 g 33.3 mL/hr Given - New Bag 02/21/2020 1:34 PM CDT 1 g 33.3 mL/hr Given - New Bag 02/21/2020 5:54 AM CDT 02/15/2020 2:36 PM CDT 1 g 200 mL/hr meropenem (MERREM) 1 g in sodium Given - New chloride 0.9% (NS) 100 mL IVPB (MB+) Bag 1 g, Intravenous, 100 mL, Administer over 30 Minutes, ONCE, 1 dose, Omega 02/15/20 at 1400 02/23/2020 9:00 AM CDT 12.5 mg metoprolol tartrate (LOPRESSOR) tablet Given 12.5 mg 12.5 mg, Oral, TWICE DAILY, First dose on 02/07/20 at 2100, Until Discontinued, Hold for heart rate < 60 bpm, systolic BP < 90 or diastolic BP < 40, 12.5 mg Given 02/22/2020 8:11 PM CDT 12.5 mg Given 02/22/2020 8:12 AM CDT 02/08/2020 6:21 AM CDT 0.3 mg nitroglycerin (NITROSTAT) tablet 0.3 mg Given 0.3 mg, Sublingual, ONCE, 1 dose, Omega 02/08/20 at 0630, Not to exceed 3 doses per incident of chest pain. Notify physician if chest pain persists after 3 doses., 02/09/2020 4:00 PM CDT 16 mg ondansetron (ZOFRAN) tablet 16 mg Given 16 mg, Oral, ONCE, 1 dose, 02/09/20 at 1530, Give prior to chemotherapy, 02/10/2020 1:38 PM CDT 16 mg ondansetron (ZOFRAN) tablet 16 mg Given 16 mg, Oral, ONCE, 1 dose, 02/10/20 at 1330, Give prior to chemotherapy, 02/11/2020 12:51 PM CDT 16 mg ondansetron (ZOFRAN) tablet 16 mg Given 16 mg, Oral, ONCE, 1 dose, 02/11/20 at 1330, Give prior to chemotherapy, 02/12/2020 1:25 PM CDT 16 mg ondansetron (ZOFRAN) tablet 16 mg Given 16 mg, Oral, ONCE, 1 dose, Estefani 02/12/20 at 1330, Give prior to chemotherapy, 02/13/2020 1:09 PM CDT 16 mg ondansetron (ZOFRAN) tablet 16 mg Given 16 mg, Oral, ONCE, 1 dose, 02/13/20 at 1330, Give prior to chemotherapy, 02/14/2020 1:23 PM CDT 16 mg ondansetron (ZOFRAN) tablet 16 mg Given 16 mg, Oral, ONCE, 1 dose, 02/14/20 at 1330, Give prior to chemotherapy, 02/15/2020 1:38 PM CDT 16 mg ondansetron (ZOFRAN) tablet 16 mg Given 16 mg, Oral, ONCE, 1 dose, 02/15/20 at 1330, Give prior to chemotherapy, 02/16/2020 1:20 PM CDT 16 mg ondansetron (ZOFRAN) tablet 16 mg Given 16 mg, Oral, ONCE, 1 dose, 02/16/20 at 1330, Give prior to chemotherapy, 02/17/2020 1:24 PM CDT 16 mg ondansetron (ZOFRAN) tablet 16 mg Given 16 mg, Oral, ONCE, 1 dose, 02/17/20 at 1330, Give prior to chemotherapy, 02/18/2020 12:21 PM CDT 16 mg ondansetron (ZOFRAN) tablet 16 mg Given 16 mg, Oral, ONCE, 1 dose, 02/18/20 a t 1030, Give prior to chemotherapy, 02/21/2020 5:55 AM CDT 2 sprays oxymetazoline (AFRIN) 0.05 % nasal spray Given 2 spray 2 spray, Each Nostril, TWICE DAILY PRN, Starting 02/07/20 at 2336, Until 02/23/20 at 1600, Congestion, Nose Bleeds , Please note: this medication will be automatically discontinued 3 days after ordered per hospital policy. Please obtain a new order if the medication needs to be continued., 2 sprays Given 02/08/2020 9:12 PM CDT 2 sprays Given 02/07/2020 11:56 PM CDT 02/09/2020 2:54 PM CDT 2 Diluted mL perflutren lipid microspheres (DEFINITY) Given injection 1-20 Diluted mL 1-20 Diluted mL, Intravenous, ONCE PRN, 1 dose, Starting 02/09/20 at 0733, Until 02/09/20 at 1454, For Procedure, A rat farmer may only administer Definity through a saline lock. If IV is in use or a port, PICC, or central line is being used a nurse must administer. NOTE: This is a HIGH ALERT Medication., MAC Procedure Area Only - Medications 02/17/2020 6:25 AM CDT 17 g polyethylene glycol 3350 (MIRALAX) Given packet 17 g 17 g (1 packet), Oral, DAILY PRN, Starting 02/09/20 at 1047, Until 02/23/20 at 1600, Constipation PO, 8.5 GRAMS = 0.5 PACKET 17 GRAMS = 1 PACKET 34 GRAMS = 2 PACKETS, 17 g Given 02/12/2020 6:35 AM CDT 17 g Given 02/10/2020 11:35 AM CDT 02/07/2020 8:37 AM CDT 300 mg posaconazole EC (NOXAFIL) tablet 300 mg Given 300 mg, Oral, TWICE DAILY WITH MEALS, 2 doses, First dose on Sun02/06/20 at 2030, Last dose on 02/07/20 at 0800 300 mg Given 02/06/2020 9:19 PM CDT 02/15/2020 4:09 PM CDT 300 mg posaconazole EC (NOXAFIL) tablet 300 mg Given 300 mg, Oral, TWICE DAILY WITH MEALS, 2 doses, First dose on 02/15/20 at 1215, Last dose on 02/15/20 at 1700 300 mg Given 02/15/2020 12:28 PM CDT 02/23/2020 9:00 AM CDT 300 mg posaconazole EC (NOXAFIL) tablet 300 mg Given 300 mg, Oral, DAILY WITH BREAKFAST, First dose on Sun02/16/20 at 0800, Unti l Discontinued 300 mg Given 02/22/2020 8:11 AM CDT 300 mg Given 02/21/2020 8:18 AM CDT 02/23/2020 8:50 AM CDT 10 mEq 50 mL/hr potassium chloride in water IVPB 10 mEq Given - New 10 mEq, Intravenous, 50 mL, Administer Bag over 60 Minutes, NEEDED (LOAN CONSULTANT FRO RX), Starting Sun02/06/20 at 1820, Unti l Sun02/23/20 at 1600, Other..., see admin instructions, HIGH GOAL Do not replace potassium chloride if serum creatinine is > 2.0. -For serum potassium 3.5 - 4 mEq/L, give KCI 40 mEq IV over 4 hours (10 mEq over 1 hr (50 mL/hr) x 4 doses) -For serum potassium < 3.5 mEq/L, give KCI 60 mEq IV over 6 hours (10 mEq over 1 hr (50 mL/hr) x 6 doses) and check K+ 30 minutes after completion. If serum potassium is still < 3.5 mEq/L, give an additional 40 mEq IV over 4 hours (10 mEq over 1 hr (50 mL/hr) x 4 doses) x 1 and NOTIFY PHSYCIAN/JONELLE. NOTE: This is a HIGH ALERT Medication., 10 mEq 50 mL/hr Given - New Bag 02/23/2020 7:51 AM CDT 10 mEq 50 mL/hr Given - New Bag 02/23/2020 6:46 AM CDT 02/22/2020 8:12 AM CDT 40 mEq potassium chloride SR (K-DUR) tablet 40 Given mEq 40 mEq, Oral, NEEDED (LOAN CONSULTANT FROM RX), Starting Sun02/06/20 at 1820, Unti l Sun02/23/20 at 1600, Other..., see admin instructions, HIGH GOAL -For serum potassium 3.5 - 4 mEq/L, give 40 mEq of PO potassium chloride if no GI distress or mucositis is present. -For serum potassium < 3.5 mEq/L, give 60 mEq of P O potassium chloride if no GI distress or mucositis is present. Repeat chemistry at 1600. If serum potassium is < 3.5 mEq/L, give additional 40 mEq of potassium chloride x 1, if no GI distress or mucositis is present and NOTIFY PHYSICIAN/JONELLE., 40 mEq Given 02/21/2020 8:00 AM CDT 40 mEq Given 02/09/2020 9:11 AM CDT 02/06/2020 9:20 PM CDT 2 mg prazosin (MINIPRESS) capsule 2 mg Given 2 mg, Oral, THREE TIMES DAILY, First dose on Sun02/06/20 at 2100, Until Discontinued 02/20/2020 6:50 PM CDT 10 mg prochlorperazine (COMPAZINE) injection Given 10 mg 10 mg, Intravenous, EVERY 6 HOURS PRN, Starting Sun02/06/20 at 1820, Until Sun02/23/20 at 1600, Nausea/Vomiting Injectable, PROTECT FROM LIGHT -- May b e given undiluted, or each 5mg may be diluted with 9 mL of NS to facilitate titration., 10 mg Given 02/14/2020 7:27 AM CDT 10 mg Given 02/13/2020 10:41 PM CDT 02/22/2020 7:02 AM CDT 10 mg prochlorperazine maleate (COMPAZINE) Given tablet 10 mg 10 mg, Oral, EVERY 6 HOURS PRN, Starting Sun02/06/20 at 1820, Until Sun02/23/20 at 1600, Nausea/Vomiting PO 10 mg Given 02/21/2020 7:22 PM CDT 10 mg Given 02/21/2020 12:38 PM CDT 02/06/2020 8:33 PM CDT 3 mg 100 mL/hr rasburicase (ELITEK) 3 mg in sodium Given - New chloride 0.9% (NS) 50 mL IVPB Bag 3 mg, Intravenous, 50 mL, Administer over 30 Minutes, ONCE, 1 dose, Sun02/06/20 at 2015, See Formulary link for Rasburicase Uric Acid Lab Specimen Handling Instructions, 02/12/2020 2:05 PM CDT 2 tablets senna/docusate (SENOKOT-S) tablet 1-2 Given tablet 1-2 tablet, Oral, DAILY PRN, Starting Sun02/06/20 at 1820, Until Sun02/23/20 a t 1600, Constipation PO, Hold for loose stools., 02/13/2020 4:16 AM CDT 80 mg simethicone (MYLICON) chew tablet 80 mg Given 80 mg, Oral, EVERY 6 HOURS PRN, Starting 02/07/20 at 2335, Until 02/23/20 at 1600, Flatulence 80 mg Given 02/11/2020 11:33 AM CDT 80 mg Given 02/11/2020 2:36 AM CDT 02/07/2020 9:06 PM CDT 100 mL/hr sodium chloride 0.9 % infusion Given - New 1,000 mL, Intravenous, at 100 mL/hr, Bag CONTINUOUS, Starting Sun02/06/20 at 1830, Until 02/08/20 at 0718 100 mL/hr Given - New Bag 02/07/2020 8:36 AM CDT 100 mL/hr Given - New Bag 02/06/2020 8:22 PM CDT 02/18/2020 9:45 AM CDT 1,000 mL 20 mL/hr sodium chloride 0.9 % infusion Given - New 1,000 mL, 1,000 mL, Intravenous, at 20 Bag mL/hr, CONTINUOUS, Starting Sun02/18/20 at 0900, Until Sun02/20/20 at 0859, Pre-Op SODIUM CHLORIDE 0.9 % IV SOLP (Cabinet Override) NOW, 1 dose, Sun02/18/20 at 0900, Create d by cabinet override, Created by cabinet override, 02/20/2020 6:42 AM CDT sodium chloride 0.9 % TKO infusion Given Intravenous, NEEDED, Starting Sun02/06/20 at 1820, Until 02/23/20 at 1600, Other..., Run as primary TKO with IV piggyback medications Given 02/19/2020 5:35 AM CDT Given 02/19/2020 5:34 AM CDT 02/10/2020 10:21 PM CDT sodium chloride 0.9% irrigation bottle Given Swish & Spit, NEEDED, Starting Sun02/06/20 at 1820, Until 02/23/20 at 1600, Other..., oral mucositis 02/22/2020 5:02 PM CDT 10 mL sodium chloride PF 0.9% flush 5-10 mL Given 5-10 mL, Flush, FLUSH THREE TIMES DAILY , First dose on 02/07/20 at 0800, Unti l Discontinued, Flush central, Midline or PICC line, with 5-10 mL every 8 hours using the push-pause (turbulent) method . Flush all lumens that do not have a continuous infusion. After obtaining blood specimen, flush catheter with 20 mL., 10 mL Given 02/22/2020 8:12 AM CDT 10 mL Given 02/22/2020 1:05 AM CDT 02/23/2020 9:00 AM CDT 0.4 mg tamsulosin (FLOMAX) capsule 0.4 mg Given 0.4 mg, Oral, DAILY AFTER BREAKFAST, First dose on 02/07/20 at 1530, Unti l Discontinued, NURSING: Please educate patient and document: Give 1/2 hour following same meal everyday. Do not crush, chew or open the capsule. , 0.4 mg Given 02/22/2020 8:11 AM CDT 0.4 mg Given 02/21/2020 8:18 AM CDT temazepam (RESTORIL) capsule 7.5 mg 7.5 mg, Oral, AT BEDTIME PRN, Starting Sun02/20/20 at 0000, Until 02/23/20 at 1600, Insomnia 02/14/2020 1:20 AM CDT 25 mg traZODone (DESYREL) tablet 25 mg Given 25 mg, Oral, AT BEDTIME PRN, Starting 02/09/20 at 1133, Until 02/14/20 at 1104, Insomnia 25 mg Given 02/13/2020 12:35 AM CDT 25 mg Given 02/11/2020 9:09 PM CDT documented in this encounter
--- OUTSIDE RECORDS SUMMARY | 2020-03-08 14:45 | XMS REPORT | Encounter Summary ---
Author Author [facility] Organization [facility] Address Unknown Phone Unavailable Care Team Providers Care Marketing Instructor Name Role Phone Deny Chilel MD PCP Reason for Visit * Auth/Cert Referred By Contact Referred To Contact Status Reason Specialty Diagnoses / Procedures Diagnoses Acute leukemia not having achieved remission (HCC) acute leukemia Encounter Details Care Team Description Date Type Department Augustina Gomez MD [address] [facility] [address] [place] [address] BRONCHOSCOPY WITH BRONCHIAL ALVEOLAR LAV AGE - FLEXIBLE 02/18/2020 Surgery [facility] OR [address] [address] Social History Date Tobacco Use Types Packs/Day [...] Blood Hematologic Unknown Cytogenetics Report Available in [facility] Chromosomes Fish DNA Probe-Blood Unknown Cytogenetics Report Available in [facility] Brief Hospital Course: The patient was admitted and the following issues were a ddressed during this hospitalization: (with pertinent details). 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 Cameron Abrams, [place] Chemotherapy plan:Dacogen 10 day,? venetoclax based on ability to get [employer] r Rx coverage through [place], so unlikely to get cycle 1 Consider [...] take transfusion threshold b ack to 10K Hhcnmubykig83/06/20: PRBC. Not transplant candidate, does not require irradi ated products Monitor CBC for transfusion needs, goal Hgb>7 and platelets >10K FEN/Renal: Acute kidney injury:renally adjust medications especially in window of TLS. Victor Manuel garcía creatinine 1, Creatinine clearance 02/23/20: 73 Hyperuricemia: [...] Lisinopril 10mg as outpatient, hold, Toprol XL/prazosin CAN SORTER, Resume Toprol XL 25mg/day at discharge Add norvasc 5mg on 02/19 for elevated BP (new med for d/c) HLD:hold atorvastatin, cannot give with posaconazole due to interaction. If re quires lipid road repairer in future once leukemia stabilized, could change [...] you can call a dietitia n at [phone]. IMPLEMENT GENERAL IV LINE FLUSH PROTOCOL Standing [...] or concerns regarding your hospital stay, call [phone]. Discharging attending physician: KIMBERLEY STARK [[id number]] Other Activity Restrictions Neutropenic precautions, avoid large crowds, good handwashing. PICC Line [facility] Instructions: *Catheter must be covered with [...] Dr. Abrams on . Scrips faxed to [facility]. Signed: Gypsy Segundo, COMFORT 02/23/2020 cc: Primary Care Physician: Deny Chilel Verified Referring physicians: Cameron Abrams MD Additional provider(s): documented in this encounter Discharge Instructions * Discharge Instr - Case Management* Lucie Villasenor RN - 02/18/2020 1:24 PM CDT You are scheduled to see Dr Cameron Abrams [phone] fax [phone] on 02/26/20 at 3:00 PM Please arrive by 2:30PM You will need to have labs drawn at [facility] [phone] fax [phone] Please arrive any time between 8:00 AM and 12:00. Your physician has faxed lab orders to [facility] in advance documented in this encounter Medications [...] patient and patient's spouse at bedside . [id number]-uzn Melissa, on speaker phone for entire conversation as [...] XY[11] NGS: pending Referring physician:Dr. Cameron Abrams, [place] Chemotherapy plan:Dacogen 10 day, ? venetoclax based [...] TLS. Bas nae creatinine 1, Creatinine clearance 02/23/20: 71 [...] Lisinopril 10mg as outpatient, hold, Toprol XL/prazosin CAN SORTER, Resume Toprol XL 25mg/day at discharge Add norvasc 5mg on 02/19 for elevated BP (new med for d/c) HLD:hold atorvastatin, cannot give with posaconazole due to interaction. If re quires lipid road repairer in future once leukemia stabilized, could change [...] albuterol 0.5% Q4H PRN, alteplas e PRN (Financial Investigator from Rx), alum/mag hydroxide/simeth Q6H PRN, benzonatate TID PRN, dextran 70/hypromellose Q8H PRN, guaiFENesin Q6H PRN, magnesium sulfate 4 g/50 mL PRN, melatonin QHS PRN, oxymetazoline BID PRN, polyethylene glycol 3350 QDAY PRN, potassium chloride in water PRN (Financial Investigator from Rx) OR potassium chloride SR PRN (Financial Investigator from Rx), prochlorperazine Q6H PRN OR prochlorperazine Q6H PRN, senna/docusate QDAY PRN, simethicone Q6H PRN, sodium chloride 0.9 % TKO inf usion PRN, sodium chloride 0.9% irrigation bottle PRN, sodium phosphate IVPB NE N (Financial Investigator from Rx), temazepam QHS PRN, traMADoL Q6H [...] Intake/Output Summary (Last 24 hours) at 02/23/2020 0712 Last data filed at 02/23/2020 0614 Gross [...] assessment and plan. Kimberley Stark MD Pager [phone] * Lila Arias - 02/23/2020 6:39 AM CDT Shift: Night 02/21-02/20 NEWS Score: 2003-3 (RR, O2sat) 2227-0 0158-1 (O2sat) 0519-5 (RR, O2sat) 0547-4 (RR, O2sat) Pain: No c/o pain this shift upon assessment Nutrition: Immunosuppressed diet, decreased appetite since chemo per pt. Fair fl uid intake GI/: No N/V this shift. Voiding adequate amounts of clear, shannon colored urine w/o genitourinary symptoms. Last BM 4/5 w/o difficulty. Activity: Up w/ SB assist and walker. No dizziness or lightheadedness, some SOB while walking 1/2 lap around the unit. Last Shower: 4 New Events or Follow-up: Hgb 6.8, RBCs transfusing. K+ 3.7- being replaced * Male, Kimberley Magana MD - 02/22/2020 7:24 AM CDT [...] XY[11] NGS: pending Referring physician:Dr. Cameron Abrams, [place] Chemotherapy plan:Dacogen 10 day, ? venetoclax based [...] TLS. Catrina soni creatinine 1, Creatinine clearance 02/22/20: 70.2 Hyperuricemia: [...] Lisinopril 10mg as outpatient, hold, Toprol XL/prazosin CAN SORTER, hold Cont metoprolol 12.5mg bid Add norvasc [...] Onc/Psych Consult Code status: DNAR-Full Intervention Kimberley MaleMD Subjective: Jhony Chi is a 75 y.o. [...] albuterol 0.5% Q4H PRN, alteplas e PRN (Financial Investigator from Rx), alum/mag hydroxide/simeth Q6H PRN, benzonatate TID PRN, dextran 70/hypromellose Q8H PRN, guaiFENesin Q6H PRN, magnesium sulfate 4 g/50 mL PRN, melatonin QHS PRN, oxymetazoline BID PRN, polyethylene glycol 3350 QDAY PRN, potassium chloride in water PRN (Financial Investigator from Rx) OR potassium chloride SR PRN (Financial Investigator from Rx), prochlorperazine Q6H PRN OR prochlorperazine Q6H PRN, senna/docusate QDAY PRN, simethicone Q6H PRN, sodium chloride 0.9 % TKO inf usion PRN, sodium chloride 0.9% irrigation bottle PRN, sodium phosphate IVPB NE N (Financial Investigator from Rx), temazepam QHS PRN, traMADoL Q6H [...] assessment and plan. Kimberley Stark MD Pager [phone] * Kenny Ferguson - 02/21/2020 9:48 PM CDT Shift: Night [id number] NEWS Score: 2,0,0 Pain: Pt reports no pain Nutrition: Immunosuppressed diet GI/: Voids , LBM 02/21/2020, Pt voiding adequate amounts of shannon urine. Activity: Assist X1, with walker. Family: not present at bedside Last Shower: 02/21/2020 New Events or Follow-up: transfused platelets per automotive salesperson. Platelets start time 0520. * Kimberley Stark MD - 02/21/2020 7:05 AM CDT Acute [...] XY[11] NGS: pending Referring physician:Dr. Cameron Abrams, [place] Chemotherapy plan:Dacogen 10 day, ? venetoclax based [...] Lisinopril 10mg as outpatient, hold, Toprol XL/prazosin CAN SORTER, hold Cont metoprolol 12.5mg bid Add norvasc [...] albuterol 0.5% Q4H PRN, alteplas e PRN (Financial Investigator from Rx), alum/mag hydroxide/simeth Q6H PRN, benzonatate TID PRN, dextran 70/hypromellose Q8H PRN, guaiFENesin Q6H PRN, magnesium sulfate 4 g/50 mL PRN, melatonin QHS PRN, oxymetazoline BID PRN, polyethylene glycol 3350 QDAY PRN, potassium chloride in water PRN (Financial Investigator from Rx) OR potassium chloride SR PRN (Financial Investigator from Rx), prochlorperazine Q6H PRN OR prochlorperazine Q6H PRN, senna/docusate QDAY PRN, simethicone Q6H PRN, sodium chloride 0.9 % TKO inf usion PRN, sodium chloride 0.9% irrigation bottle PRN, sodium phosphate IVPB NE N (Financial Investigator from Rx), temazepam QHS PRN, traMADoL Q6H PRN Vital Signs: Last Filed Vital Signs: 24 Hour Range BP: 122/61 (02/20 650) Temp: 36.7 C (98.1 F) (02/20 650) Pulse: 86 (02/20 0650) Respirations: 20 PER MINUTE (02/20 0650) SpO2: 94 % (02/20 650) BP: [...] Intake/Output Summary (Last 24 hours) at 02/21/2020 0705 Last data filed at 02/21/2020 0556 Gross [...] assessment and plan. Kimberley Stark MD Pager [phone] * Orly Acuna, [place] - 02/21/2020 5:56 AM CDT Shift: [phone] NEWS Score: 1936: 3 (RR 22, O2 95% on RA) 2245: 2 (RR 22) 0206: 0 Pain: Denies pain. Nutrition: Immuno diet. GI/: LBM 02/20. Voids adequate amounts of clear, shannon urine. [...] Ramirez DO PGY4 Pulmonary/Critical Care Fellow Pager [phone] Available on [employer] S: Feeling well today. Denies dyspnea at [...] albuterol 0.5% Q4H PRN, alteplas e PRN (Financial Investigator from Rx), alum/mag hydroxide/simeth Q6H PRN, benzonatate TID PRN, guaiFENesin Q6H PRN, magnesium sulfate 4 g/50 mL PRN, melatonin QHS PRN, oxymet azoline BID PRN, polyethylene glycol 3350 QDAY PRN, potassium chloride in water PRN (Financial Investigator from Rx) OR potassium chloride SR PRN (Financial Investigator from Rx), prochl orperazine Q6H PRN OR prochlorperazine Q6H PRN, senna/docusate QDAY PRN, sim ethicone Q6H PRN, sodium chloride 0.9 % TKO infusion PRN, sodium chloride 0.9% i rrigation bottle PRN, sodium phosphate IVPB PRN (Financial Investigator from Rx), temazepam QH S PRN, traMADoL Q6H PRN Vital Signs: Last Filed in 24 hours Vital Signs: 24 hour Range BP: 126/54 (02/19 0900) Temp: 36.8 C (98.2 F) (02/19 0900) Pulse: 77 (02/19 0900) Respirations: 18 PER MINUTE (02/19 0900) SpO2: 96 % (02/19 900) BP: (126-163)/(54-81) [...] name: Javier Hdz MD Date: 02/20/2020 * Mary Ann Ricks MD - 02/20/2020 9:08 AM CDT [...] NGS: pending Referring physician: Dr. Cameron Abrams, [place] Chemotherapy plan: Dacogen 10 day, ? venetoclax [...] TLS. Catrina soni creatinine 1, current is 1.15, decr from [...] Lisinopril 10mg as outpatient, hold, Toprol XL/prazosin CAN SORTER, hold Cont metoprolol 12.5mg bid Add norvasc [...] Consider Onc/Psych Consult Code status: DNAR-Full Intervention Mary Ann Ricks MD Subjective: Jhony Chi is a [...] albuterol 0.5% Q4H PRN, alteplas e PRN (Financial Investigator from Rx), alum/mag hydroxide/simeth Q6H PRN, benzonatate TID PRN, guaiFENesin Q6H PRN, magnesium sulfate 4 g/50 mL PRN, melatonin QHS PRN, oxymet azoline BID PRN, polyethylene glycol 3350 QDAY PRN, potassium chloride in water PRN (Financial Investigator from Rx) OR potassium chloride SR PRN (Financial Investigator from Rx), prochl orperazine Q6H PRN OR prochlorperazine Q6H PRN, senna/docusate QDAY PRN, sim ethicone Q6H PRN, sodium chloride 0.9 % TKO infusion PRN, sodium chloride 0.9% i rrigation bottle PRN, sodium phosphate IVPB PRN (Financial Investigator from Rx), temazepam QH S PRN, traMADoL [...] reviewed and discussed in assessment and plan. Mary Ann Ricks MD * Narcisa Dacosta RN - 02/20/2020 2:46 AM CDT Shift: [id number] NEWS Score: 1-2-3 Pain: Denies pain. Nutrition: [...] Ramirez DO PGY4 Pulmonary/Critical Care Fellow Pager [phone] Available on [employer] S: Feeling better today. Denies dyspnea at [...] albuterol 0.5% Q4H PRN, alteplas e PRN (Financial Investigator from Rx), alum/mag hydroxide/simeth Q6H PRN, benzonatate TID PRN, guaiFENesin Q6H PRN, magnesium sulfate 4 g/50 mL PRN, melatonin QHS PRN, oxymet azoline BID PRN, polyethylene glycol 3350 QDAY PRN, potassium chloride in water PRN (Financial Investigator from Rx) OR potassium chloride SR PRN (Financial Investigator from Rx), prochl orperazine Q6H PRN OR prochlorperazine Q6H PRN, senna/docusate QDAY PRN, sim ethicone Q6H PRN, sodium chloride 0.9 % TKO infusion PRN, sodium chloride 0.9% i rrigation bottle PRN, sodium phosphate IVPB PRN (Financial Investigator from Rx), traMADoL Q6H PRN Vital Signs: Last Filed in 24 hours Vital Signs: 24 hour Range BP: 133/50 (02/19 0800) Temp: 37.3 C (99.2 F) (02/18 0800) Pulse: 97 (02/18 0800) Respirations: 18 PER MINUTE (02/18 0800) SpO2: 96 % (02/18 0800) SpO2 Pulse: 94 (02/17 1200) BP: (114-167)/(50-70) [...] Ref Range Units Ordered 1 Unit Number [id number] Blood Component Type APHERESIS PLT,LEUKO REDUCED,IRRADIATED,2ND CONT. [...] name: Javier Hdz MD Date: 02/19/2020 * Mary Ann Ricks MD - 02/19/2020 10:01 AM CDT [...] NGS: pending Referring physician: Dr. Cameron Abrams, [place] Chemotherapy plan: Dacogen 10 day, ? venetoclax [...] Lisinopril 10mg as outpatient, hold, Toprol XL/prazosin CAN SORTER, hold Cont metoprolol 12.5mg bid HLD: hold [...] Consider Onc/Psych Consult Code status: DNAR-Full Intervention Mary Ann Ricks MD Subjective: Jhony Chi is a [...] albuterol sulfate Q4H PRN, altep lase PRN (Financial Investigator from Rx), alum/mag hydroxide/simeth Q6H PRN, benzonatate TID P RN, guaiFENesin Q6H PRN, magnesium sulfate 4 g/50 mL PRN, melatonin QHS PRN, oxy metazoline BID PRN, polyethylene glycol 3350 QDAY PRN, potassium chloride in aliya er PRN (Financial Investigator from Rx) OR potassium chloride SR PRN (Financial Investigator from Rx), pro chlorperazine Q6H PRN OR prochlorperazine Q6H PRN, senna/docusate QDAY PRN, simethicone Q6H PRN, sodium chloride 0.9 % TKO infusion PRN, sodium chloride 0.9 % irrigation bottle PRN, sodium phosphate IVPB PRN (Financial Investigator from Rx), traMADoL Q6H PRN Vital Signs: Last Filed Vital Signs: 24 Hour Range BP: 133/50 (02/18 0800) Temp: 37.3 C (99.2 F) (04/02 0800) Pulse: 97 (02/19 800) Respirations: 18 PER MINUTE (02/18 08) SpO2: 96 % (02/19 800) SpO2 Pulse: [...] reviewed and discussed in assessment and plan. Mary Ann Ricks MD * Kayleen Thurston, [place] - 02/19/2020 6:29 AM CDT Shift: [phone] NEWS Score: 2 1 3 Pain: Pt [...] with orders as written) with: yes Karena valencia RN Labs/applicable tests checked: CBC and Basic Metabolic [...] Denies questions at this gonzález e. * Mary Ann Ricks MD - 02/18/2020 8:20 AM CDT [...] NGS: pending Referring physician: Dr. Cameron Abrams [place] Chemotherapy plan: Dacogen 10 day, ? venetoclax [...] Lisinopril 10mg as outpatient, hold, Toprol XL/prazosin CAN SORTER, hold Cont metoprolol 12.5mg bid HLD: hold [...] Consider Onc/Psych Consult Code status: DNAR-Full Intervention Mary Ann Ricks MD Subjective: Jhony Chi is a [...] albuterol sulfate Q4H PRN, altep lase PRN (Financial Investigator from Rx), alum/mag hydroxide/simeth Q6H PRN, benzonatate TID P RN, guaiFENesin Q6H PRN, magnesium sulfate 4 g/50 mL PRN, melatonin QHS PRN, oxy metazoline BID PRN, polyethylene glycol 3350 QDAY PRN, potassium chloride in aliya er PRN (Financial Investigator from Rx) OR potassium chloride SR PRN (Financial Investigator from Rx), pro chlorperazine Q6H PRN OR prochlorperazine Q6H PRN, senna/docusate QDAY PRN, simethicone Q6H PRN, sodium chloride 0.9 % TKO infusion PRN, sodium chloride 0.9 % irrigation bottle PRN, sodium phosphate IVPB PRN (Financial Investigator from Rx), traMADoL Q6H PRN Vital Signs: [...] reviewed and discussed in assessment and plan. Mary Ann Ricks MD * Kayleen Thurston, [place] - 02/18/2020 12:31 AM CDT Shift: [id number] NEWS Score: 4 3 4 Pain: Pt [...] Ramirez DO PGY4 Pulmonary/Critical Care Fellow Pager [phone] [facility] on [facility] S: Feeling well. Denies dyspnea at rest. [...] albuterol sulfate Q4H PRN, altep lase PRN (Financial Investigator from Rx), alum/mag hydroxide/simeth Q6H PRN, benzonatate TID P RN, guaiFENesin Q6H PRN, magnesium sulfate 4 g/50 mL PRN, melatonin QHS PRN, oxy metazoline BID PRN, polyethylene glycol 3350 QDAY PRN, potassium chloride in aliya er PRN (Financial Investigator from Rx) OR potassium chloride SR PRN (Financial Investigator from Rx), pro chlorperazine Q6H PRN OR prochlorperazine Q6H PRN, senna/docusate QDAY PRN, simethicone Q6H PRN, sodium chloride 0.9 % TKO infusion PRN, sodium chloride 0.9 % irrigation bottle PRN, sodium phosphate IVPB PRN (Financial Investigator from Rx), traMADoL Q6H PRN Vital Signs: Last Filed in 24 hours Vital Signs: 24 hour Range BP: 140/56 (02/16 124) Temp: 36.8 C (98.2 F) (02/16 124) Pulse: 86 (02/16 124) Respirations: 18 PER MINUTE (02/16 1241) SpO2: [...] Ref Range Units Ordered 1 Crossmatch Expires 02/20/2020,3389 Record Check FOUND ABO/RH(D) B POS Antibody Screen NEG Electronic Crossmatch YES Unit Number [id number] Blood Component Type RBC,ADSOL,LEUKO REDUCED,IRRADIATED Unit Division 0 Status OF Unit ISSUED Transfusion Status OK TO TRANSFUSE Crossmatch Result COMPATIBLE,ELECTRONIC OUTSIDE PATHOLOGY CONSULT Collection Time: 02/17/20 7:37 AM Result Value Ref Range PATHOLOGY REPORT [facility] [email or web address] Department of Pathology and Laboratory Medicine [address] [place] [address] [place] [address] Surgical Pathology Office: [phone] PATHOLOGY CONSULTATION NAME: JHONY CHI SURG PATH #: [id number] MR #: [id number] ALT ID #: LOCATION: 42 DATE OF PROCEDURE: 02/17/2020 AGE: 75 SEX: M DATE RECEIVED: 02/17/2020 : 1945 TIME RECEIVED: 07:37 PHYSICIAN: FARIDA DARDEN DATE OF REPORT: 02/17/2020 COPY TO: KIMBERLEY STARK ROC RICKS MD DATE OF PRINTIN02/17/2020 OUTSIDE INSTITUTION: [facility] [employer] [address] [place] [address] phone: [phone] fax: [phone] ######################################################################## Final Diagnosis: Outside case "[id number]" (date collected 02/06/2020). Bone marrow, aspirate, biopsy, [...] ######################################################################## Material Received: A: Outside Slides x13, [id number], [facility], [facility], [address] [place] [address], [place] [address] History: 75-year-old male with leukemia Gross Description: A. Received are thirteen (13) outside slides and a report labeled "[id number]". If immunohistochemical stains and/or in situ hybridization are cited in this report, the performance characteristics were determined by the Department of Pathology and Laboratory Medicine of the [facility] ([facility]) in compliance with CLIA'88 regulations. Some of [...] of Pathology and Laboratory Medicine of the [facility]. It has not been cleared or approved [...] [facility] Chemotherapy Certified RN Labs/applicable tests checked: YES. Chemo regime: Cy1D9 dectiabine (DACOGEN) 49.2 mg in sodium chloride 0.9% (NS) 109.84 mL IVPB Rate verified and armband double checkwith second RN: YES Patient education offered and stated understanding. Denies questions at this gonzález e. * Mary Ann Ricks MD - 02/17/2020 10:55 AM CDT [...] NGS: pending Referring physician: Dr. Cameron Abrams, [place] Chemotherapy plan: Dacogen 10 day, ? venetoclax [...] TLS. Bas nae creatinine 1, current is 1.44, decr from [...] Lisinopril 10mg as outpatient, hold, Toprol XL/prazosin CAN SORTER, hold Cont metoprolol 12.5mg bid HLD: hold [...] Consider Onc/Psych Consult Code status: DNAR-Full Intervention Mary Ann Ricks MD Subjective: Jhony Chi is a [...] albuterol sulfate Q4H PRN, altep lase PRN (Financial Investigator from Rx), alum/mag hydroxide/simeth Q6H PRN, benzonatate TID P RN, guaiFENesin Q6H PRN, magnesium sulfate 4 g/50 mL PRN, melatonin QHS PRN, oxy metazoline BID PRN, polyethylene glycol 3350 QDAY PRN, potassium chloride in aliya er PRN (Financial Investigator from Rx) OR potassium chloride SR PRN (Financial Investigator from Rx), pro chlorperazine Q6H PRN OR prochlorperazine Q6H PRN, senna/docusate QDAY PRN, simethicone Q6H PRN, sodium chloride 0.9 % TKO infusion PRN, sodium chloride 0.9 % irrigation bottle PRN, sodium phosphate IVPB PRN (Financial Investigator from Rx), traMADoL Q6H PRN Vital Signs: Last Filed Vital Signs: 24 Hour Range BP: 140/56 (02/16 124) Temp: 36.8 C (98.2 F) (02/16 1241) Pulse: 86 (02/16 1241) Respirations: 18 PER MINUTE (02/16 124) SpO2: 96 % (02/16 124) BP: (135-159)/(51-68) Temp: [36.6 C (97.9 F)-37.2 [...] reviewed and discussed in assessment and plan. Mary Ann Ricks MD * Ama Zuluaga RN - 02/17/2020 7:46 AM CDT Shift: NEWS Score: 2, 1, 2, 5, 2 [...] another unit as soon as able. Contact IPA with any questions [phone] * Flavia Breen RN - 02/16/2020 1:50 [...] Ramirez DO PGY4 Pulmonary/Critical Care Fellow Pager [phone] Available on [facility] S: Feeling well. Denies dyspnea at rest. [...] albuterol sulfate Q4H PRN, altep lase PRN (Financial Investigator from Rx), alum/mag hydroxide/simeth Q6H PRN, benzonatate TID P RN, guaiFENesin Q6H PRN, magnesium sulfate 4 g/50 mL PRN, oxymetazoline BID PRN, polyethylene glycol 3350 QDAY PRN, potassium chloride in water PRN (Financial Investigator from Rx) OR potassium chloride SR PRN (Financial Investigator from Rx), prochlorperazine Q6H PRN OR prochlorperazine Q6H PRN, senna/docusate QDAY PRN, simethicone Q6H PRN, sodium chloride 0.9 % TKO infusion PRN, sodium chloride 0.9% irrigation bottle PRN, sodium phosphate IVPB PRN (Financial Investigator from Rx), traMADoL Q6H PRN Vital Signs: Last Filed in 24 hours Vital Signs: 24 hour Range BP: 130/57 (02/15 1143) Temp: 37.2 C (99 F) (02/15 1143) Pulse: 80 (02/15 1143) Respirations: 18 PER MINUTE (02/15 1143) SpO2: 98 % (02/15 1143) BP: (130-169)/(44-66) Temp: [36.9 C (98.4 F)-38 [...] The performance characterics were determined by the [facility]. Adenovirus NOT DETECTED DN-NOT DETECTED Coronavirus [...] Ref Range Units Ordered 1 Unit Number [id number] Blood Component Type APHERESIS PLT,LEUKO REDUCED,IRRADIATED,3RD CONT. [...] name: Javier Hdz MD Date: 02/16/2020 * Mary Ann Ricks MD - 02/16/2020 8:58 AM CDT [...] NGS: pending Referring physician: Dr. Cameron Abrams, [place] Chemotherapy plan: Dacogen 10 day, ? venetoclax based on ability to get [place], so unlikely to get cycle 1 Will need LP/IT chemo at some point due to monocytic features, once WBC<1 Day 8/10 of 10-day dacogen induction BM Bx performed [...] TLS. Bas nae creatinine 1, current is 1.59. Hyperuricemia: s/p [...] Lisinopril 10mg as outpatient, hold, Toprol XL/prazosin CAN SORTER, hold Cont metoprolol 12.5mg bid HLD: hold [...] Consider Onc/Psych Consult Code status: DNAR-Full Intervention Mary Ann Ricks MD Subjective: Jhony Chi is a [...] albuterol sulfate Q4H PRN, altep lase PRN (Financial Investigator from Rx), alum/mag hydroxide/simeth Q6H PRN, benzonatate TID P RN, guaiFENesin Q6H PRN, magnesium sulfate 4 g/50 mL PRN, oxymetazoline BID PRN, polyethylene glycol 3350 QDAY PRN, potassium chloride in water PRN (Financial Investigator from Rx) OR potassium chloride SR PRN (Financial Investigator from Rx), prochlorperazine Q6H PRN OR prochlorperazine Q6H PRN, senna/docusate QDAY PRN, simethicone Q6H PRN, sodium chloride 0.9 % TKO infusion PRN, sodium chloride 0.9% irrigation bottle PRN, sodium phosphate IVPB PRN (Financial Investigator from Rx), traMADoL Q6H PRN Vital Signs: [...] reviewed and discussed in assessment and plan. Mary Ann Ricks MD * Sejal Leon, RN - 02/16/2020 6:33 AM CDT Shift:[id number] NEWS Score: 5- Resp & O2 sat 7- HR, Resp, & O2 sat 1- O2 sat Pain:6/10 in throat, pt states it feels like he is swallowing rocks Nutrition:Immunosuppressed diet. Good appetite. GI/:LBM 02/14.Voiding adequate amts clear dark yellow urine. Activity:SBA w/walker Family:No family present this shift. Last Shower:3/29 New Events or Follow-up: Robitussin given for dry cough. Replacements: Platelets 30 Potassium 3.9 * Sejal Leon, [place] - 02/15/2020 11:50 PM CDT 02/15/20215702/15/20220002/15/20 221 Vitals Temp 37.4 C (99.4 F) -- [...] 98 MM HG 91 MM HG -- 02/15/208 Vitals Temp 37.4 C (99.4 F) Temperature Source Oral Pulse -- Respirations -- SpO2 -- $$ O2 Delivery -- $$ O2 Device -- O2 Liter Flow -- BP -- Mean NBP (Calculated) -- Dr. Sargent notified. No new orders. CTM * Malia Laureano RN - 02/15/2020 6:13 PM CDT Shift:[id number] NEWS: 0800-4 (HR & O2) reassess 3 [...] checked (agree with orders as written) with: david Ramos RN Labs/applicable tests checked: CBC and Comprehensive Metabolic Panel (CMP) Chemo regime: Drug/cycle/day Cycle 1 Day 7 decitabine (DACOGEN) 49.2 mg in sodium chloride 0.9% (NS) 109.84 mL IVPB Rate verified and armband double checkwith second RN: yes Patient education offered and stated understanding. Denies questions at this gonzález e. * Mary Ann Ricks MD - 02/15/2020 11:00 AM CDT [...] NGS: pending Referring physician: Dr. Cameron Abrams, [place] Chemotherapy plan: Dacogen 10 day, ? venetoclax [...] Lisinopril 10mg as outpatient, hold, Toprol XL/prazosin CAN SORTER, hold Cont metoprolol 12.5mg bid HLD: hold [...] Consider Onc/Psych Consult Code status: DNAR-Full Intervention Mary Ann Ricks MD Subjective: Jhony Chi is a [...] albuterol sulfate Q4H PRN, altep lase PRN (Financial Investigator from Rx), alum/mag hydroxide/simeth Q6H PRN, benzonatate TID P RN, guaiFENesin Q6H PRN, magnesium sulfate 4 g/50 mL PRN, oxymetazoline BID PRN, polyethylene glycol 3350 QDAY PRN, potassium chloride in water PRN (Financial Investigator from Rx) OR potassium chloride SR PRN (Financial Investigator from Rx), prochlorperazine Q6H PRN OR prochlorperazine Q6H PRN, senna/docusate QDAY PRN, simethicone Q6H PRN, sodium chloride 0.9 % TKO infusion PRN, sodium chloride 0.9% irrigation bottle PRN, sodium phosphate IVPB PRN (Financial Investigator from Rx), traMADoL Q6H PRN Vital Signs: [...] reviewed and discussed in assessment and plan. Mary Ann Ricks MD * Sejal Leon RN - 02/15/2020 6:00 AM CDT Shift: NEWS [...] for dry cough. Replacements: Platelets:26 * Abhijeet Ryan RN - 02/14/2020 6:42 PM CDT Shift:02/14/20 Day [...] stated understanding. Denies questions at this gonzález glez * Mary Ann Ricks MD - 02/14/2020 10:51 AM CDT [...] -11,+i(1 1)(p10), add(10)(p11.2)[cp3]/46, XY[11] NGS: pending Assigned borough coordinator/outpatient primary oncologist: n/a not candidate Referring physician: Dr. Cameron Abrams, [place] Chemotherapy plan: Dacogen 10 day, ? venetoclax [...] TLS. Catrina soni creatinine 1, current is 1.8 Hyperuricemia: s/p [...] Lisinopril 10mg as outpatient, hold, Toprol XL/prazosin CAN SORTER, hold Cont metoprolol 12.5mg bid HLD: hold [...] Consider Onc/Psych Consult Code status: DNAR-Full Intervention Mary Ann Ricks MD Subjective: Jhony Chi is a [...] albuterol sulfate Q4H PRN, altep lase PRN (Financial Investigator from Rx), alum/mag hydroxide/simeth Q6H PRN, benzonatate TID P RN, magnesium sulfate 4 g/50 mL PRN, oxymetazoline BID PRN, polyethylene glycol 3350 QDAY PRN, potassium chloride in water PRN (Financial Investigator from Rx) OR potassiu m chloride SR PRN (Financial Investigator from Rx), prochlorperazine Q6H PRN OR prochlorper azine Q6H PRN, senna/docusate QDAY PRN, simethicone Q6H PRN, sodium chloride 0.9 % TKO infusion PRN, sodium chloride 0.9% irrigation bottle PRN, sodium phosphate IVPB PRN (Financial Investigator from Rx), traMADoL Q6H PRN, traZODone QHS PRN Vital Signs: Last Filed Vital Signs: 24 Hour Range BP: 124/65 (02/13 759) Temp: 37.1 C (98.8 F) (02/13 759) Pulse: 92 (02/13 759) Respirations: 18 PER MINUTE (02/13 759) SpO2: 96 % (02/13 759) BP: (124-155)/(53-65) [...] reviewed and discussed in assessment and plan. Mary Ann Ricks MD * Ashley Fernandez, [place] - 02/14/2020 5:54 AM CDT Shift: NEWS [...] negative Platelets 31 with am labs. 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 Cameron Abrams, [place] Chemotherapy plan: Dacogen 10 day, ? venetoclax [...] Lisinopril 10mg as outpatient, hold, Toprol XL/prazosin CAN SORTER, hold Start metoprolol 12.5mg bid HLD: hold [...] albuterol sulfate Q4H PRN, altep lase PRN (Financial Investigator from Rx), alum/mag hydroxide/simeth Q6H PRN, magnesium sulfate 4 g/50 mL PRN, oxymetazoline BID PRN, polyethylene glycol 3350 QDAY PRN, potass ium chloride in water PRN (Financial Investigator from Rx) OR potassium chloride SR PRN (Financial Investigator from Rx), prochlorperazine Q6H PRN OR prochlorperazine Q6H PRN, senna/ docusate QDAY PRN, simethicone Q6H PRN, sodium chloride 0.9 % TKO infusion PRN, sodium chloride 0.9% irrigation bottle PRN, sodium phosphate IVPB PRN (Financial Investigator from Rx), traMADoL Q6H PRN, traZODone QHS [...] assessment and plan. Kimberley Stark MD Pager [phone] * Rivka Scott RN - 02/13/2020 4:02 [...] SBA. Walker ordered per pt request Family: college intern talked w/ pt's girlfriend this evening. Last [...] questions at this gonzález e. * Marialuisa Beatty, RD - 02/12/2020 1:22 PM CDT CLINICAL [...] start of treatment. Reports intake was normal CAN SORTER and denies recent wt loss. Documented intake [...] Marialuisa Beatty RD, LD Clinical Dietitian [phone]: [phone] Office: [phone] * Male, Kimberley Magana MD - 02/12/2020 [...] -11,+i(1 1)(p10), add(10)(p11.2)[cp3]/46, XY[11] NGS: pending Assigned borough coordinator/outpatient primary oncologist: n/a not candidate Referring physician: Dr. Cameron Abrams [place] Chemotherapy plan: Dacogen 10 day, ? venetoclax [...] Lisinopril 10mg as outpatient, hold, Toprol XL/prazosin CAN SORTER, hold Start metoprolol 12.5mg bid HLD: hold [...] and Respiratory Meds:acetaminophen Q6H PRN, alteplase PRN (Financial Investigator from Rx), alum/mag hydroxide/simeth Q6H PRN, magnesium sulfate 4 g/50 mL PRN, oxymetazoli ne BID PRN, polyethylene glycol 3350 QDAY PRN, potassium chloride in water PRN ( Financial Investigator from Rx) OR potassium chloride SR PRN (Financial Investigator from Rx), prochlorper azine Q6H PRN OR prochlorperazine Q6H PRN, senna/docusate QDAY PRN, simethic one Q6H PRN, sodium chloride 0.9 % TKO infusion PRN, sodium chloride 0.9% irriga tion bottle PRN, sodium phosphate IVPB PRN (Financial Investigator from Rx), traMADoL Q6H PRN, traZODone QHS PRN Vital Signs: Last Filed Vital Signs: 24 Hour Range BP: 137/60 (02/11 0650) Temp: 36.6 C (97.9 F) (02/11 0650) Pulse: 84 (02/11 0650) Respirations: 18 PER MINUTE (02/11 0650) SpO2: 97 % (02/11 0650) BP: (119-150)/(50-70) Temp: [36.6 C (97.9 F)-37.2 [...] assessment and plan. Kimberley Stark MD Pager [phone] * Teresa Alcantara RN - 02/12/2020 2:00 AM CDT Shift: NEWS Score: 2022: 1 (SpO2) 2157: 2 (SpO2) 2228: 2 [...] (agree with orders as written) with: Juana Avalos, Chemotherapy Certified RN Labs/applicable tests checked: Yes. Okay to proceed, per Dr. Stark with creat 2.3 2 & phos 7.3 Chemo regimen: Cycle 1, Day 3 Decitabine (DACOGEN) 49.2 mg in sodium chloride 0.9% (NS) 109.84 mL IVPB Rate verified and armband double checkwith second RN: YES Patient education offered and stated understanding. Denies questions at this gonzález e. 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 Cameron Abrams [place] Chemotherapy plan: Dacogen 10 day, ? venetoclax [...] Lisinopril 10mg as outpatient, hold, Toprol XL/prazosin CAN SORTER, hold Start metoprolol 12.5mg bid HLD: hold [...] and Respiratory Meds:acetaminophen Q6H PRN, alteplase PRN (Financial Investigator from Rx), alum/mag hydroxide/simeth Q6H PRN, magnesium sulfate 4 g/50 mL PRN, oxymetazoli ne BID PRN, polyethylene glycol 3350 QDAY PRN, potassium chloride in water PRN ( Financial Investigator from Rx) OR potassium chloride SR PRN (Financial Investigator from Rx), prochlorper azine Q6H PRN OR prochlorperazine Q6H PRN, senna/docusate QDAY PRN, simethic one Q6H PRN, sodium chloride 0.9 % TKO infusion PRN, sodium chloride 0.9% irriga tion bottle PRN, sodium phosphate IVPB PRN (Financial Investigator from Rx), traMADoL Q6H PRN, traZODone QHS PRN Vital Signs: Last Filed Vital Signs: 24 Hour Range BP: 110/83 (02/10 229) Temp: 36.8 C (98.2 F) (02/10 229) Pulse: 85 (02/10 229) Respirations: 18 PER MINUTE (02/10 229) SpO2: 94 % (02/10 229) BP: (110-152)/(45-83) Temp: [36.8 C (98.2 F)-37.9 [...] assessment and plan. Kimberley Stark MD Pager [phone] * Joana Rivers RN - 02/11/2020 5:32 AM CDT Shift: [id number] NEWS Score:3,2,3 Pain: denies pain Nutrition: immunosuppressed [...] sodium chloride 0.9% (NS) 109.84 mL IVPB [[id number]] Ordered Dose: 20 mg/m2 2.46 m2 (Treatment [...] above threshold so positive NGS: pending Assigned borough coordinator/outpatient primary oncologist: n/a not candidate Referring physician: Dr. Cameron Abrams, [place] Chemotherapy plan: Dacogen 10 day, ? venetoclax [...] Lisinopril 10mg as outpatient, hold, Toprol XL/prazosin CAN SORTER, hold Start metoprolol 12.5mg bid HLD: hold [...] Questions were answered and directed them to [employer] for additional resources. Patient was febrile overnight. [...] and Respiratory Meds:acetaminophen Q6H PRN, alteplase PRN (Financial Investigator from Rx), alum/mag hydroxide/simeth Q6H PRN, magnesium sulfate 4 g/50 mL PRN, oxymetazoli ne BID PRN, polyethylene glycol 3350 QDAY PRN, potassium chloride in water PRN ( Financial Investigator from Rx) OR potassium chloride SR PRN (Financial Investigator from Rx), prochlorper azine Q6H PRN OR prochlorperazine Q6H PRN, senna/docusate QDAY PRN, simethic one Q6H PRN, sodium chloride 0.9 % TKO infusion PRN, sodium chloride 0.9% irriga tion bottle PRN, sodium phosphate IVPB PRN (Financial Investigator from Rx), traMADoL Q6H PRN, traZODone QHS [...] assessment and plan. Kimberley Stark MD Pager [phone] * Ross Ferrera MD - 02/09/2020 11:08 [...] for myelosuppression and infection. Temperature will be onrma tored frequently during patient's hospital stay. Discussed [...] therapy, safety precautions, and common adverse effects (li sted below) were discussed with the patient. I [...] retail pharmacy locations or to utilize a [employer] take back program. Instructed not to flush the medication down the toilet. Monitoring: Monitoring and follow-up plan was discussed with patient. Jhony Chi was ins tructed to contact the oral chemotherapy pharmacist at [phone] if they have any questions or concerns regarding their medication therapy. Prescription is being sent through the [place] with the help of the [facility]. Will keep patient and team u pdated on status. This medication is considered medium risk per our internal oral chemotherapy ris k categorization and the patient will be contacted for education, toxicity check at 2 weeks, one reassessment at 3 months and then annually, if applicable ([facility] risk monitoring). Questions: Patient was given the opportunity to ask questions. Patient verbalized understan ding, agreed with the plan and had no questions or concerns regarding therapy. Angela Gomez PHARMD Clinical Pharmacist 02/09/20 * Angela Gomez PHARMD [...] contacted to complete education on his regimen. Angela Gomez PHARMD Oncology Clinical Pharmacist 02/09/2020 * Male, Kimberley [...] above threshold so positive NGS: pending Assigned borough coordinator/outpatient primary oncologist: n/a not candidate Referring physician: Dr. Cameron Abrams [place] Chemotherapy plan: Dacogen 10 day, ? venetoclax [...] x 1, 3kg weight gain since ad lam, achieved -2.2L More dyspneic, lasix iv 02/08 [...] Lisinopril 10mg as outpatient, hold, Toprol XL/prazosin CAN SORTER, hold Start metoprolol 12.5mg bid HLD: hold [...] and Respiratory Meds:acetaminophen Q6H PRN, alteplase PRN (Financial Investigator from Rx), alum/mag hydroxide/simeth Q6H PRN, magnesium sulfate 4 g/50 mL PRN, oxymetazoli ne BID PRN, potassium chloride in water PRN (Financial Investigator from Rx) OR potassium c hloride SR PRN (Financial Investigator from Rx), prochlorperazine Q6H PRN OR prochlorperazi ne Q6H PRN, senna/docusate QDAY PRN, simethicone Q6H PRN, sodium chloride 0.9 % TKO infusion PRN, sodium chloride 0.9% irrigation bottle PRN, sodium phosphate IVPB PRN (Financial Investigator from Rx), traMADoL Q6H PRN Vital Signs: Last Filed Vital Signs: 24 Hour Range BP: 135/62 (02/08 0209) Temp: 37.4 C (99.4 F) (02/08 209) [...] assessment and plan. 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 Cameron Abrams, [place] Chemotherapy plan: Likely HMA/venetoclax, will send Rx [...] Lisinopril 10mg as outpatient, hold, Toprol XL/prazosin CAN SORTER, hold Start metoprolol 12.5mg bid HLD: hold [...] sodium chloride 0.9 % infusion Stopped (02/07/20 2305) PRN and Respiratory Meds:acetaminophen Q6H PRN, alteplase PRN (Financial Investigator from Rx), alum/mag hydroxide/simeth Q6H PRN, magnesium sulfate 4 g/50 mL PRN, oxymetazoli ne BID PRN, potassium chloride in water PRN (Financial Investigator from Rx) OR potassium c hloride SR PRN (Financial Investigator from Rx), prochlorperazine Q6H PRN OR prochlorperazi ne Q6H PRN, senna/docusate QDAY PRN, simethicone Q6H PRN, sodium chloride 0.9 % TKO infusion PRN, sodium chloride 0.9% irrigation bottle PRN, sodium phosphate IVPB PRN (Financial Investigator from Rx), traMADoL Q6H PRN Vital Signs: [...] assessment and plan. Kimberley Stark MD Pager [phone] * Marissa Gallagher RN - 02/08/2020 6:49 AM CDT ..Shift: [id number] NEWS Score: 1 (94%) 0 1 (95%) Pain: c/o new onset abdominal discomfort and tightness, Tesfaye notified and pain believed to be gas [...] , orders to keep >30) * Marissa Gallagher RN - 02/08/2020 5:23 AM CDT 2300: Pt [...] ponin, Lipase, Lactic, and Lipase) . Per MD, orders to hold fluid until 0400. 0100: [...] to cardiology) - Will trend troponin Addendum 0568: - troponin trending up 0.69->0.74-> - ECG [...] monocytic leukemia Cytogenetics/FISH: pending NGS: pending Assigned borough coordinator/outpatient primary oncologist: n/a not candidate Referring physician: Dr. Cameron Abrams, [place] Chemotherapy plan: Likely HMA/venetoclax, will send Rx [...] and Respiratory Meds:acetaminophen Q6H PRN, alteplase PRN (Financial Investigator from Rx), alum/mag hydroxide/simeth Q6H PRN, magnesium sulfate 4 g/50 mL PRN, melatonin Q HS PRN, potassium chloride in water PRN (Financial Investigator from Rx) OR potassium chlor fernando SR PRN (Financial Investigator from Rx), prochlorperazine Q6H PRN OR prochlorperazine Q 6H PRN, senna/docusate QDAY PRN, sodium chloride 0.9 % TKO infusion PRN, sodium chloride 0.9% irrigation bottle PRN, sodium phosphate IVPB PRN (Financial Investigator from Rx ), traMADoL Q6H PRN Vital Signs: Last Filed Vital Signs: 24 Hour Range BP: 98/39 (02/07 816) Temp: 37.1 C (98.7 F) (02/06 815) Pulse: 88 (02/06 815) Respirations: 20 PER MINUTE (02/06 815) SpO2: [...] assessment and plan. Kimberley Stark MD Pager [phone] * Rosamaria Gary, [place] - 02/07/2020 8:23 AM CDT 02/07/20 0815 02/07/20 0816 Vitals BP (!) 96/39 (RN Notify) (!) 98/39 (RN Notify) Mean NBP (Calculated) 58 MM HG 59 MM HG Pt asymptomatic and sitting up in bed. Gypsy Segundo NP notified and gave orders to get a set of orthostatic blood pressures to assess for orthostasis. Wi gabriel complete and report to team. * Marissa Gallagher RN - 02/07/2020 6:57 AM CDT ..Shift: [id number] NEWS Score: 1 (95%) 0 2 (95%, [...] dizziness at this time Family: Last Shower: CAN SORTER New Events or Follow-up: --PICC placed this [...] PM CDT Patient arrived to room # (1912) via ambulation accompanied by transport. Patien t [...] Ref Range Units Ordered 1 Unit Number [id number] Blood Component Type APHERESIS PLT,LEUKO REDUCED,IRRADIATED,1ST CONT. Unit Division 0 Status OF Unit ISSUED Transfusion Status OK TO TRANSFUSE Point of Care Testing: (Last 24 hours): Glucose: (!) 113 (02/18/20 0210) I have examined the patient, and there are no significant changes in their condi tion, from the previous H&P performed on 02-15-20. Augustina Gomez MD Pager [phone] * Gunnar Mendes - 02/15/2020 6:45 PM CDT Note to satisfy consult request. Please see H&P from earlier in day * Mi, Kimberley Magana MD - 02/06/2020 7:03 PM CDT Acute Leukemia Service Admission H&P Jhony Chi Admission Date: 02/06/2020 Assessment/Plan: Active Problems: Paroxysmal A-fib (HCC) CAD (coronary artery disease) Inflammatory arthritis Hyperlipidemia AML (acute myeloblastic leukemia) ([facility]) Patient transferred for new acute leukemia, suspicion for acute monocytic by pre malone outside marrow Primary diagnosis: suspected/new diagnosis of Acute Leukemia, acute monocytic s uspected Cytogenetics/FISH: pending NGS: pending Assigned borough coordinator/outpatient primary oncologist: n/a not candidate Referring physician: Dr. Cameron Abrams, [place] Chemotherapy plan: Likely HMA/venetoclax, will send Rx [...] 16. He follows with Dr. Muñiz in [facility], [place] gadiel Rahman Medical History: Diagnosis Date AML (acute [...] file Gets together: Not on file Attends [employer] service: Not on file Active member of [...] assessment and plan Kimberley Stark MD Pager [phone] documented in this encounter Procedure Notes * [...] documented in this encounter Consult Notes * Gunnar Mendes - 02/15/2020 6:45 PM CDT Associated Order(s): [...] galactomannan - antimicrobials per primary team - diurese to achieve net negative fluid status The [...] we will consider moving forward with FOB BAL. Likely Sunday as we are only [...] smoker, 60 py history. None since the s. No etoh or illicits. 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 Family history reviewed; non-contributory Allergies: Patient [...] albuterol sulfate Q4H PRN, altep lase PRN (Financial Investigator from Rx), alum/mag hydroxide/simeth Q6H PRN, benzonatate TID P RN, guaiFENesin Q6H PRN, magnesium sulfate 4 g/50 mL PRN, oxymetazoline BID PRN, polyethylene glycol 3350 QDAY PRN, potassium chloride in water PRN (Financial Investigator from Rx) OR potassium chloride SR PRN (Financial Investigator from Rx), prochlorperazine Q6H PRN OR prochlorperazine Q6H PRN, senna/docusate QDAY PRN, simethicone Q6H PRN, sodium chloride 0.9 % TKO infusion PRN, sodium chloride 0.9% irrigation bottle PRN, sodium phosphate IVPB PRN (Financial Investigator from Rx), traMADoL Q6H PRN Review of [...] Signs: 24 hour Range BP: 149/55 (02/14 124) Temp: 37.3 C (99.2 F) (02/14 124) Pulse: 80 (02/14 124) Respirations: 16 PER MINUTE (02/14 124) SpO2: 94 % (02/14 1241) BP: (121-149)/(54-85) [...] Ref Range Units Ordered 1 Unit Number [id number] Blood Component Type APHERESIS PLT,LEUKO REDUCED,IRRADIATED,1ST CONT. Unit Division 0 Status OF Unit ISSUED Transfusion Status OK TO TRANSFUSE PHOSPHORUS CELLULAR THERAPEUTICS Collection Time: 02/15/20 2:50 PM Result Value Ref Range Phosphorus 3.3 2.0 - 4.5 MG/DL Pertinent radiology reviewed. Gunnar Mendes Pager [phone] * Luis Dale MBBS - 02/08/2020 3:56 [...] to OM, SVG to RPDA , at [facility]), prior atrial fibrillation (currently has Linq cabrera [...] Luis Dale PGY-4 Fellow, Cardiovascular disease Pager: [phone] __ Chief Complaint: Epigastric pain and elevated troponin History of Present Illness: Jhony Chi is a 75 y.o. male with past medical h istory significant for coronary artery disease status post CABG (09/05, SALCEDO to LAD, SVG to OM, SVG to RPDA, at [facility]), prior atrial fibrillati on (currently has Linq device), hypertension and recently diagnosed acute monocy tic leukemia who had episodes of pressure-like sensation in his epigastrium and was noted to have elevated troponin. Hence, cardiology was consulted. Prior to the current hospitalization, patient had gone to his tutoring manager aruna menendez and was found to have abnormal labs with elevated white blood cell count of 54 ,000 with blasts. Heme onc referral was done and patient underwent bone marrow biopsy with preliminary results showing acute monocytic leukemia. Hence, the rashaun galicia was admitted on 02/06/2020. 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 [...] and Respiratory Meds:acetaminophen Q6H PRN, alteplase PRN (Financial Investigator from Rx), alum/mag hydroxide/simeth Q6H PRN, magnesium sulfate 4 g/50 mL PRN, oxymetazoli ne BID PRN, potassium chloride in water PRN (Financial Investigator from Rx) OR potassium c hloride SR PRN (Financial Investigator from Rx), prochlorperazine Q6H PRN OR prochlorperazi ne Q6H PRN, senna/docusate QDAY PRN, simethicone Q6H PRN, sodium chloride 0.9 % TKO infusion PRN, sodium chloride 0.9% irrigation bottle PRN, sodium phosphate IVPB PRN (Financial Investigator from Rx), traMADoL Q6H PRN Review of [...] of the E/M visit, discussed case with e CV fellow and concur with documentation [...] states megan t he went to his tutoring manager's office this week for routine lab studies and was subsequently referred to a ticker installer/oncologist due to abnormal findings (WB C 54.5, Hgb 8, platelet 26 with blasts and atypical monocytes). 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 ADMISSION DATE: 02/06/2020 DAYS ADMITTED: LOS: 17 days Todays Date: 02/23/2020 Plan *Patient is planning on discharging home today with assistance from family. *ARMANI spoke with Lisa at [facility] out patient lab [phone] fax [phone] to verify that lab orders were received. Lisa pitt sted labs be [facility] with Dr Abrams. Lab order faxed ATTN: Me bedoya fax [phone] per Lisa's request. Patient to walk in for labs betwe en 8:00AM and noon. *Patient is scheduled to see Dr Abrams on 02/26/20 at 3:00PM. *NCM verbally discussed discharge plan with patient via telephone and added all information to AVS. Interventions ? Support ? Info or Referral ? Discharge Planning Discharge Planning: Other ? Medication Needs Medication Needs: Other *ARMANI spoke with Eliza at [facility] pharmacy [phone] and verified that all scripts have been [...] been selected for the patient. Lucie MENJIVAR, ophthalmic medical technician [phone] * Care Plan - Kenny Ferguson - [...] Needs Medication Needs: Other *NCM spoke with Gypsy Baker RN with UNDERGRADUATE INTERN Cyndy Rice [phone] at [facility] and faxed script for posaconazole to Cyndy Rice fax [phone]. Per Josiah Baker, [facility] pharmacy will over night partial fill of posa on Sunday02/23/20 to patient's home. When the remainder of the script is available to fill, they will over night it to patient. *NCM faxed all needed discharge scripts to Gypsy Baker RN at [facility] for ARN P to prescribe through [place]. [facility] is closed on Mondays. Medications jerad l be filled through [facility] and mailed to patient. [place] will continue to follo for discharge planning. ? Financial ? Legal [...] been selected for the patient. Lucie MENJIVAR ophthalmic medical technician [phone] * Case Mgmt DC Plan - Lucie Villasenor RN - 02/18/2020 1:33 PM CDT Case Management Progress Note NAME:Jhony Chi :1944 AGE: 75 y.o. ADMISSION DATE: 02/06/2020 DAYS ADMITTED: LOS: 12 days Todays Date: 02/18/2020 Plan Patient is planning to discharge home with assistance from family when medically stable. Patient would like to continue out patient care closer to home at [facility] in [place]. Interventions ? Support ? Info or Referral ? Discharge Planning Discharge Planning: Other *NCM spoke with Dr Abrams's office. Dr Abrams is willing to see patient next week o n 02/26/20 at 3:00 PM to establish care in [place]. Care will be trans ferred to another physician when Dr Abrams moves to [place]. Next is the earliest appointment they have available with any physician. *Weekly labs can be drawn at [facility] out patient lab [phone] fax [phone]. Orders will need to be faxed prior [...] the patient. Lucie MENJIVAR RN Case Management [phone] * Case Mgmt DC Plan - Lucie [...] Medication Needs Medication Needs: Other *NCM left for [place] with [facility] Department [phone] ex [phone] regarding approval status for consult to Dr Cameron Abrams. *NCM spoke with CHINA Mcwilliams at Dr Cameron Abrams's office [phone] fax regarding referral to Dr Abrams and scheduling appointment. Per Poppy, Dr Abrams is not taking new patient's because he is moving to [place]. Poppy is going to speak with her nurse manager track about how they are handling new referrals due to Dr Abrams moving and short staffing in general due to COVID 19. *NCM discussed patient's need for frequent labs and transfusions. Per Poppy. Zander riggs has a shortage of RBCs currently. All irradiated blood products are brandie pped from [place], should they be needed and only for [...] been selected for the patient. Lucie MENJIVAR, ophthalmic medical technician [phone] * Care Plan - Abhijeet Ryan RN [...] Planning Discharge Planning: Other *NCM spoke to [facility] with [facility] Department [phone] ex [phone] regarding patient's care plan after discharge. 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 Tonia will request non-VA consult to Dr Abrams. *NCM left for [place] oncology pharmacist Marialuisa Chatman [phone] agueda g to determine if Venetoclax is available through [place] pharmacy and will continue to follow for discharge planning. *Update @ 9530* [place] spoke with Marialuisa Chatman. Venetoclax is available through [place] pharmacy o n an outpt basis only. [place] is unable to supply Venetoclax to patient while he is hospitalized. Once Consult to Dr Abrams is approved and patient is seen outpt, Dr Abrams may prescribe venetoclax to be filled at [place] pharmacy. NCM will continue to follow for [...] been selected for the patient. Lucie MENJIVAR ophthalmic medical technician [phone] * Case Mgmt DC Plan - Lucie Villasenor RN - 02/10/2020 11:46 AM CDT Case Management Progress Note NAME:Jhony Chi :1944 AGE: 75 y.o. ADMISSION DATE: 02/06/2020 DAYS ADMITTED: LOS: 4 days Todays Date: 02/10/2020 Plan Patient is planning to discharge home with assistance from family when medically stable. *SHARMAINE spoke with ARMANI Nair with Cyndy LOPEZ at the [facility] plan of care and need for venetoclax. Gypsy Baker can be reached directly at [phone]. Nel Muse RN, ARMANI to assist in faxing face sheet, H&P, path report and most recent progress note to JESSICA Weathers. Cyndy is putting in an expedited, non-VA consult for oncology this AM. Once consult has been approved, the oncologist following will be able to order venetoclax. Per Gypsy Baker, there is no guarantee that the [place] can supply this medication. *[facility] [phone] Interventions ? Support ? Info or Referral [...] been selected for the patient. Lucie MENJIVAR ophthalmic medical technician [phone] * Case Mgmt DC Plan - Lucie Villasenor RN - 02/09/2020 12:25 PM CDT Case Management Admission Assessment NAME:Jhony Chi : [birth year] AGE: 75 y.o. ADMISSION DATE: 02/06/2020 DAYS ADMITTED: LOS: 3 days Todays Date: 02/09/2020 Source of Information: Patient Plan ARMANI completed assessment with patient via phone today. Patient currently lives in [place], [place] with his Susana. Susana is in good health and will be avai lable for care assistance however she does not drive. Patient states Susana's da vincent Torres will be available for transportation needs. Melissa is a SW for the [place], [place]. *Patient states he [place] all of [place] the [place], [place] [phone]. He last saw an VOLUNTEER ASSISTANT at this location approx one month ago. [facility]. NCM will contact primary care office tomorrow during their regular business hours. *Acute leuk team sent script for Venetoclax to [facility]. Medicatio n will likely need to be filled at [place] pharmacy and prescribed by [place] physician. NCM will continue to follow. Patient Address/Phone [address] [place] [address] There are no phone numbers on file. [...] ? Coverage Primary Insurance: Medicare Secondary Insurance: [place]/[facility] Additional Coverage: [place](Patient fills all scripts at [facility]) ? Source of Income Source Of Income: SSI ? Financial Assistance Needed? *Patient may require FA for Venetoclax Psychosocial Needs ? Mental Health Mental Health History: No ? Substance Use History ? Other None Current/Previous Services ? PCP No primary care provider on file., None, None ? Pharmacy [facility] - [place], [place] - [address] [facility] [address] [place] [address] ? Durable Medical Equipment Durable Medical Equipment [...] ? Outpatient Therapy PT: No OT: No TRAPPER ANIMAL: No ? Care Home Facility/Custodial SNF: No NH: No ? Inpatient Rehab IPR: No ? Long-Term Acute Care Hospital LTACH: No ? Acute Hospital Stay Acute Hospital Stay: No Lucie MENJIVAR, ophthalmic medical technician [phone] * Advanced Care Planning/Resuscitation Status - Kimberley [...] spent a total of 5 minutes in solc-ja-wney discussion of pat ient condition, prognosis, treatment goals, and/or advance care planning with e patient and/or surrogate decision makers. documented in [...] HSV PCR Routine 02/18/2020 10:49 AM CDT [facility]FERENCE TEST Specimen 02/18/2020 in Lab 10:49 AM CDT HC GRAM STAIN 02/18/2020 10:49 AM CDT HC CULTURE-LOWER RESP Routine 02/18/2020 10:49 AM CDT HC CMV DNA QN BY PCR Routine 02/18/2020 10:49 AM CDT HC SPECIAL STAINS #1 Routine 02/18/2020 (PATHOLOGY) 10:45 AM CDT BRONCHOSCOPY 02/18/2020 10:29 AM CDT BRONCHOSCOPY WITH 02/18/2020 Acute myeloid leuke ulther BRONCHIAL ALVEOLAR LAVAGE 10:28 AM CDT not [...] PANEL Routine 02/06/2020 (CH7CT) 8:03 PM CDT NE FLOW CYTOMETRY 02/06/2020 INTERPRETATION [...] (02/23/2020 2:54 AM CDT) Units Ordered 1 MAIN LAB Crossmatch 02/26/2020,2359 MAIN LAB Expires Record Check FOUND KU MAIN LAB ABO/RH(D) B POS KU MAIN LAB Antibody Screen NEG KU MAIN LAB Electronic YES KU MAIN LAB Crossmatch Unit Number [id number] MAIN LAB Blood Component RBC,ADSOL,LEUKO KU MAIN LAB Type REDUCED,IRRADIATED Unit Division 0 MAIN LAB Status OF Unit TRANSFUSED KU MAIN LAB Transfusion OK TO TRANSFUSE KU MAIN LAB Status Crossmatch COMPATIBLE,ELECTRONIC KU MAIN LAB Result Specimen Blood Performing Organization Address [facility] Ph one Number MAIN LAB [address] [place] [address] * PHOSPHORUS (02/23/2020 2:00 AM CDT) Phosphorus 4.3 2.0 - 4.5 MG/DL KU MAIN LAB Specimen Blood Performing Organization Address [facility] Ph one Number KU MAIN LAB [address] [place] [id number] * CBC AND DIFF CELLULAR THERAPEUTICS (02/23/2020 [...] Basophil Count Specimen Blood Performing Organization Address [facility] Ph one Number MAIN LAB [address] [place] [address] * COMPREHENSIVE METABOLIC PANEL CELLULAR THERAPEUTICS (02/23/2020 2:00 AM CDT) Pathologist [facility] Sodium 135 (L) 137 - 147 MMOL/L [...] >60 >60 mL/min KU MAIN LAB Comment: Sudanese The eGFR is not validated f or use in drug dosing adjustments. Continue to use estimated creatinine clearance per dosing reference text. Please contact the Clinical Pharmacist for questions. eGFR >60 >60 mL/min KU MAIN LAB Sudanese Comment: The eGFR is not validated for use in drug dosing adjustments. Continue to use estimated creatinine clearance per dosing reference text. Please contact the Clinical Pharmacist for questions. Specimen Blood Performing Organization Address City/State/Zipcode Ph one Number MAIN LAB [address] [place] [address] * TRANSFUSE APHERESIS PLATELETS (02/22/2020 8:21 AM CDT) * TRANSFUSE APHERESIS PLATELETS (02/22/2020 8:21 AM CDT) * PREPARE APHERESIS PLATELETS (02/22/2020 3:02 AM CDT) Pathologist [facility] Units Ordered 1 MAIN LAB Unit Number [id number] MAIN LAB Blood Component APHERESIS PLT,LEUKO [facility] MAIN LAB Type REDUCED,IRRADIATED,2ND CONT . Unit Division 0 KU MAIN LAB Status OF Unit TRANSFUSED KU MAIN LAB Transfusion OK TO TRANSFUSE KU MAIN LAB Status Specimen Other (Specify) Performing Organization Address [facility] Ph one Number MAIN LAB [address] [place] [address] * PHOSPHORUS (02/22/2020 2:14 AM CDT) Pathologist [facility] Phosphorus 4.1 2.0 - 4.5 MG/DL KU MAIN LAB Specimen Blood Performing Organization Address [facility] Ph one Number MAIN LAB [address] [place] [address] * CBC AND DIFF CELLULAR THERAPEUTICS (02/22/2020 2:14 AM CDT) [facility] White Blood 2.3 (L) 4.5 - 11.0 K/UL KU MAIN LAB Cells RBC 2.20 (L) 4.4 - 5.5 M/UL KU MAIN LAB Hemoglobin 7.1 (L) 13.5 - 16.5 GM/DL KU MAIN LAB Hematocrit 20.3 (L) 40 - 50 % KU MAIN LAB MCV 91.9 80 - 100 FL KU MAIN LAB MCH 32.3 26 - 34 PG KU MAIN LAB MCHC 35.1 32.0 - 36.0 G/DL KU MAIN LAB RDW 15.5 (H) 11 - 15 % KU MAIN LAB Platelet Count 8 (LL)Comment: Value noted, 150 - 400 K/UL KU MAIN LAB value unchanged MPV 7.3 7 - 11 FL KU MAIN LAB Segmented 23 (L) 41 - 77 % KU MAIN LAB Neutrophils Lymphocytes 34 24 - 44 % KU MAIN LAB Monocytes 35 (H) 4 - 12 % KU MAIN LAB Eosinophil 4 0 - 5 % KU MAIN LAB Basophil 1 0 - 2 % KU MAIN LAB Metamyelocyte 1 % KU MAIN LAB Blast 2 % KU MAIN LAB ANISO PRESENT MAIN LAB Platelet MKD DEC KU MAIN LAB Estimate Absolute 0.53 (L) 1.8 - 7.0 K/UL KU MAIN LAB Neutrophil Count Manual Specimen Blood Performing Organization Address [facility] Ph one Number MAIN LAB [address] [place] [address] * COMPREHENSIVE METABOLIC PANEL CELLULAR THERAPEUTICS (02/22/2020 2:14 AM CDT) Pathologist [facility] Sodium 137 137 - 147 MMOL/L KU MAIN LAB Potassium 3.6 3.5 - 5.1 MMOL/L MAIN LAB Chloride 103 98 - 110 [...] >60 >60 mL/min KU MAIN LAB Comment: [place]ese The eGFR is not validated f or use in drug dosing adjustments. Continue to use estimated creatinine clearance per dosing reference text. Please contact the Clinical Pharmacist for questions. eGFR >60 >60 mL/min KU MAIN LAB Sudanese Comment: The eGFR is not validated for use in drug dosing adjustments. Continue to use estimated creatinine clearance per dosing reference text. Please contact the Clinical Pharmacist for questions. Specimen Blood Performing Organization Address City/[facility] Ph one Number MAIN LAB [address] [place] [address] * BILIRUBIN, DIRECT (02/21/2020 2:04 AM CDT) Bilirubin, 0.8 (H) <0.4 MG/DL MAIN LAB Direct Specimen Performing Organization Address [facility] one Number MAIN LAB [address] [place] [address] * PHOSPHORUS (02/21/2020 2:04 AM CDT) Phosphorus 3.9 2.0 - 4.5 MG/DL MAIN LAB Specimen Blood Performing Organization Address [facility] Ph one Number MAIN LAB [address] [place] [address] * CBC AND DIFF CELLULAR THERAPEUTICS (02/21/2020 2:04 AM CDT) White Blood 2.4 (L) 4.5 [...] Count Manual Specimen Blood Performing Organization Address City/State/Zipcode Ph one Number KU MAIN LAB [address] [place] [address] * COMPREHENSIVE METABOLIC PANEL CELLULAR THERAPEUTICS (02/21/2020 2:04 AM CDT) Sodium 136 (L) 137 - 147 MMOL/L [...] >60 >60 mL/min KU MAIN LAB Comment: Sudanese The eGFR is not validated f or use in drug dosing adjustments. Continue to use estimated creatinine clearance per dosing reference text. Please contact the Clinical Pharmacist for questions. eGFR >60 >60 mL/min KU MAIN LAB Sudanese Comment: The eGFR is not validated for use in drug dosing adjustments. Continue to use estimated creatinine clearance per dosing reference text. Please contact the Clinical Pharmacist for questions. Specimen Blood Performing Organization Address City/State/Zipcode Ph one Number KU MAIN LAB [address] [place] [address] * US ABDOMEN COMPLETE (02/20/2020 1:40 PM [...] on 02/20/2020 1:55 PM. Performing Organization Address City/State/Zipcode Ph one Number KU RAD RESULTS * TRANSFUSE RBC'S (02/20/2020 9:53 AM CDT) Specimen Blood * TRANSFUSE RBC'S (02/20/2020 9:53 AM CDT) Specimen Blood * CBC AND DIFF CELLULAR THERAPEUTICS (02/20/2020 2:05 AM CDT) Pathologist [facility] White Blood 2.4 (L) 4.5 - 11.0 [...] 7 % KU MAIN LAB ANISO PRESENT KU MAIN LAB Platelet MKD DEC KU MAIN LAB Estimate Absolute 0.60 (L) 1.8 - 7.0 K/UL KU MAIN LAB Neutrophil Count Manual Specimen Blood Performing Organization Address [facility] Ph one Number KU MAIN LAB [address] [place] [address] * PHOSPHORUS CELLULAR THERAPEUTICS (02/20/2020 2:05 AM CDT) [facility] Phosphorus 3.0 2.0 - 4.5 MG/DL KU MAIN LAB Specimen Blood Performing Organization Address City[facility] Ph one Number MAIN LAB [address] [place] [address] * COMPREHENSIVE METABOLIC PANEL CELLULAR THERAPEUTICS (02/20/2020 2:05 AM CDT) Pathologist [facility] Sodium 138 137 - 147 MMOL/L KU [...] MAIN LAB eGFR Non >60 >60 mL/min MAIN LAB Comment: Sudanese The eGFR is not validated f or use in drug dosing adjustments. Continue to use estimated creatinine clearance per dosing reference text. Please contact the Clinical Pharmacist for questions. eGFR >60 >60 mL/min KU MAIN LAB Sudanese Comment: The eGFR is not validated for use in drug dosing adjustments. Continue to use estimated creatinine clearance per dosing reference text. Please contact the Clinical Pharmacist for questions. Specimen Blood Performing Organization Address City/State/Zipcode Ph one Number MAIN LAB [address] [place] [address] * TRANSFUSE APHERESIS PLATELETS (02/19/2020 8:45 AM CDT) * TRANSFUSE APHERESIS PLATELETS (02/19/2020 8:45 AM CDT) * PREPARE APHERESIS PLATELETS (02/19/2020 3:05 AM CDT) Pathologist [facility] Units Ordered 1 MAIN LAB Unit Number [id number] MAIN LAB Blood Component APHERESIS PLT,LEUKO MAIN LAB Type REDUCED,IRRADIATED,2ND CONT . Unit Division 0 MAIN LAB Status OF Unit TRANSFUSED MAIN LAB Transfusion OK TO TRANSFUSE MAIN LAB Status Specimen Other (Specify) Performing Organization Address City/[facility]/Zipcode Ph one Number MAIN LAB [address] [place] [address] * CBC AND DIFF CELLULAR THERAPEUTICS (02/19/2020 2:00 AM CDT) [facility] White Blood 2.4 (L) 4.5 - 11.0 K/UL KU MAIN LAB Cells RBC 2.23 (L) 4.4 - 5.5 M/UL KU MAIN LAB Hemoglobin 7.3 (L) 13.5 - 16.5 GM/DL KU MAIN LAB Hematocrit 21.0 (L) 40 - 50 % KU MAIN LAB MCV 94.5 80 - 100 FL KU MAIN LAB MCH 32.7 26 - 34 PG KU MAIN LAB MCHC 34.6 32.0 - 36.0 G/DL KU MAIN LAB RDW 15.8 (H) 11 - 15 % KU MAIN LAB Platelet Count 19 (LL)Comment: Value noted, 150 - 400 K/UL K U MAIN LAB value unchanged MPV 6.9 (L) 7 - 11 FL KU MAIN LAB Segmented 23 (L) 41 - 77 % KU MAIN LAB Neutrophils Lymphocytes 29 24 - 44 % KU MAIN LAB Monocytes 35 (H) 4 - 12 % KU MAIN LAB Eosinophil 1 0 - 5 % KU MAIN LAB Basophil 1 0 - 2 % KU MAIN LAB Blast 11 % KU MAIN LAB ANISO PRESENT KU MAIN LAB Platelet MKD DEC KU MAIN LAB Estimate Absolute 0.55 (L) 1.8 - 7.0 K/UL KU MAIN LAB Neutrophil Count Manual Specimen Blood Performing Organization Address City[facility] Ph one Number MAIN LAB [address] [place] [address] * PHOSPHORUS CELLULAR THERAPEUTICS (02/19/2020 2:00 AM CDT) Pathologist [facility] Phosphorus 3.3 2.0 - 4.5 MG/DL KU MAIN LAB Specimen Blood Performing Organization Address [facility] Ph one Number MAIN LAB [address] [place] [address] * COMPREHENSIVE METABOLIC PANEL CELLULAR THERAPEUTICS (02/19/2020 [...] (L) >60 mL/min KU MAIN LAB Comment: Sudanese The eGFR is not validated f or use in drug dosing adjustments. Continue to use estimated creatinine clearance per dosing reference text. Please contact the Clinical Pharmacist for questions. eGFR >60 >60 mL/min KU MAIN LAB Sudanese Comment: The eGFR is not validated for use in drug dosing adjustments. Continue to use estimated creatinine clearance per dosing reference text. Please contact the Clinical Pharmacist for questions. Specimen Blood Performing Organization Address [facility] one Number KU MAIN LAB [address] [place] [address] * URIC ACID (02/19/2020 2:00 AM CDT) Uric Acid 3.2 (L) 4.0 - 8.0 MG/DL KU MAIN LAB Specimen Blood Performing Organization Address [facility] one Number MAIN LAB [address] [place] [address] * MISC REFERENCE TEST (02/18/2020 10:49 AM CDT) Pathologist [facility] Test Fungal Plus PCR Profile I REFERENCE L AB Reference Lab [facility] REFERENCE LAB Results Ref Lab NONE DETECTED REFERENCE LAB NEGATIVE Report Available in Epic SEE ALL 3 RESULTS Specimen Mail BRONCHIAL ALVEOLAR LAVAGE REFERENCE L AB Specimen Narrative Performed At This result has an attachment that is n ot available. Performing Organization Address [facility] one Number REFERENCE LAB REFERENCE LAB See results for address. * COVID-19 (SARS-COV-2) PCR (02/18/2020 10:49 AM CDT) COVID-19 BRONCHIAL ALVEOLAR LAVAGE REFERENCE L AB [...] developed and its performance characteristics determined by [employer]. It has not been cleared or approved by the U.S. Food and Drug Administration. Results should be used in conjunction with clinical findings, and should not form the sole basis for a diagnosis or treatment decision. Testing Performed At: [facility] [address] [place] [id number] CLIA ID: [id number] Specimen Performing Organization Address City/[facility] Ph one Number REFERENCE LAB REFERENCE LAB See results for address. * GRAM STAIN (02/18/2020 10:49 AM CDT) Battery Name GRAM STAIN [facility] Specimen BRONCHIAL ALVEOLAR LAVAGE, RUL [facility] LAB Description Special NONE [facility] Requests Gram Stain FEW [facility] NEUTROPHILS MANY RBC'S NO ORGANISMS SEEN Report Status FINAL [facility] 02/18/2020 Specimen Bronchial Alveolar Lavage,RUL Performing Organization Address [facility] Ph one Number [facility] [address] [place] [address] * RVP VIRAL PANEL PCR (02/18/2020 10:49 AM CDT) Specimen Source BRONCHIAL ALVEOLAR LAVAGE [facility] This panel does not detect SARS-CoV-2, the etiologic agent of COVID-19. Contact Infection Control for testing of patients with suspected SARS-CoV-2 infection. This assay uses analyte specific reagents and has not been cleared by the US Food and Drug Administration. The performance characterics were determined by the [facility]. Adenovirus NOT DETECTED DN-NOT DETECTED KU MAIN LAB Coronavirus NOT DETECTED DN-NOT DETECTED KU MAIN LAB 229E Coronavirus NOT DETECTED DN-NOT DETECTED KU MAIN LAB HKU1 Coronavirus NOT DETECTED DN-NOT DETECTED KU MAIN LAB NL63 Coronavirus NOT DETECTED DN-NOT DETECTED KU MAIN LAB OC43 Human NOT DETECTED DN-NOT DETECTED KU MAIN LAB Metapneumovirus Human NOT DETECTED DN-NOT DETECTED KU MAIN LAB Rhinovirus/ENTE ROVIRUS Influenza A NOT DETECTED DN-NOT DETECTED KU MAIN LAB H1N1 2009 Influenza A H1 NOT DETECTED DN-NOT DETECTED KU MAIN LAB Influenza A H3 NOT DETECTED DN-NOT DETECTED K[facility] MAIN LAB Influenza B NOT DETECTED DN-NOT DETECTED KU MAIN LAB Parainfluenza 1 NOT DETECTED DN-NOT DETECTED KU MAIN LAB Parainfluenza 2 NOT DETECTED DN-NOT DETECTED KU MAIN LAB Parainfluenza 3 NOT DETECTED DN-NOT DETECTED KU MAIN LAB Parainfluenza 4 NOT DETECTED DN-NOT DETECTED KU MAIN LAB RSV NOT DETECTED DN-NOT DETECTED KU MAIN LAB Bordetella NOT DETECTED DN-NOT DETECTED MAIN LAB Pertussis Chlamydophila NOT DETECTED DN-NOT DETECTED MAIN LAB Pneumoniae Mycoplasma NOT DETECTED DN-NOT DETECTED MAIN LAB Pneumoniae Specimen Bronchial Alveolar Lavage Performing Organization Address City/State/Zipcode Ph one Number MAIN LAB [address] [place] [address] * PJP JIROVECI QUANT PCR (02/18/2020 10:49 AM CDT) [facility] PJP Jiroveci NOT DETECTED REFERENCE LAB BAL PCR Quant Reference range: NOT DETECT ED Unit: copies/mL . Assay Range: 84 copies/mL to 1.00E+08 copies/mL . The limit of quantitation (LOQ) is 84 copies/mL. Pneumocystis jiroveci DNA detected below the LOQ will be reported as Detected:<84 copies/mL. . This test was developed and its performance characteristics determined by [employer]. It has not been cleared or approved by the U.S. Food and Drug Administration. Results should be used in conjunction with clinical findings, and should not form the sole basis for a diagnosis or treatment decision. Testing Performed At: [employer] [place], [place] [id number] CLIA ID: [id number] Specimen Bronchial Washing RUL Performing Organization Address [facility] one Number REFERENCE LAB REFERENCE LAB See results for address. * ASPERGILLUS GALACTOMANN (02/18/2020 10:49 AM CDT) Aspergillus 0.079 REFERENCE LAB Galactomann BAL Comment: [...] Aspergillus Galactomannan EIA is a product of [employer] and is FDA approved for in vitro diagnostic use. Testing Performed At: [employer] [place], [place] [address] CLIA ID: [id number] Specimen Bronchial Washing RUL Performing Organization Address [facility] one Number REFERENCE LAB REFERENCE LAB See results for address. * HERPES SIMPLEX PCR - NON-BLOOD (02/18/2020 10:49 AM CDT) Specimen, BRONCHIAL ALVEOLAR LAVAGE [facility] MAIN LAB Herpes Herpes Simplex HSV 1 and 2 NOT DETECTED HSVND-HSV 1 and 2 [facility] PCR Comment: NOT DETECTED USINE IO HSV 1&2 Assay is a qualitative real-time PCR test for the direct detection and differentiation of HSV 1 and 2 DNA. This assay is FDA approved for testing cutaneous or mucocutaneous lesions from symptomatic patients. Performance on modifications of this test as well as other specimen types has been validated by the Department of Pathology and Laboratory Medicine at the [facility]. Specimen Bronchial Alveolar Lavage Performing Organization Address [facility] Ph one Number [facility] [address] [place] [address] * CMV QUANT PCR-FLUID (02/18/2020 10:49 AM CDT) Specimen, CMV BRONCHIAL ALVEOLAR LAVAGE [facility] CMV by CMV DNA NOT DETECTED CMVND-CMV DNA NOT [facility] PCR-fluid DETECTED CMV This assay is an off label use [facility] Comment-Fluid of the Labels That [employer] Assa y for detection of CMV in fluids and has not been approved by the US Food and Drug Administration. The performance characteristics were determined by the [facility]. The lower limit of detection is 50IU/mL. Specimen Fluid - Bronchial Alveolar Lavage Performing Organization Address [facility] one Number [facility] [address] [place] [address] * CULTURE-RESP,LOWER W/SENSITIVITY (02/18/2020 10:49 AM CDT) Pathologist [facility] Battery Name LOWER RESP CULTURE [facility] Specimen BRONCHIAL ALVEOLAR LAVAGE, RUL [facility] Description Special NONE [facility] Requests Direct Gram FEW [facility] Stain NEUTROPHILS MANY RBC'S NO ORGANISMS SEEN Culture NO GROWTH 2 DAYS MAIN LAB Report Status FINAL [facility] 02/20/2020 Specimen Bronchial Alveolar Lavage,RUL Performing Organization Address [facility] one Number [facility] [address] [place] [address] * CYTOLOGY BRONCH LAVAGE (02/18/2020 10:45 AM CDT) Cytology [facility] [email or web address] Department of Pathology and Laboratory Medicine [address] [place] [address] Surgical Pathology Office: [phone] CYTOLOGY REPORT NAME: JHONY CHI CYTOLOGY #: [id number] MR #: [id number] ALT ID #: BILLING #: [id number] LOCATION: 42 DATE OF PROCEDURE: 02/18/2020 AGE: [...] Signed Out By+++ dm/02/19/2020 Interpreted by: MD Rmaírez Walker MD Fellow Specimen Bronchial Alveolar Lavage,RUL Performing Organization Address City/State/[facility] Ph one Number [facility] [address] [place] [address] * BRONCHOSCOPY (02/18/2020 10:29 AM CDT) Provation Patient Name: Jhony DANGELO OTHER Report Procedure Date: 02/18/2020 10:29 RESULT S AM CSN: [id number] Date of : 1945 Gender: Male Attending Physician: Augustina Gmoez MD Procedure: Bronchoscopy Indications: Bilateral infiltrate Providers: Augustina Gomez MD (Doctor), Sathish Boudreaux RN (Nurse), Marquis Saavedra, Technologist (Waitress) Referring Physician: Javier Galarza MD Medications: per [...] 02/18/2020 10:29 AM Specimen Performing Organization Address [facility] one Number KU OTHER RESULTS * TRANSFUSE APHERESIS PLATELETS (02/18/2020 7:46 AM CDT) * TRANSFUSE APHERESIS PLATELETS (02/18/2020 7:46 AM CDT) * PREPARE APHERESIS PLATELETS (02/18/2020 2:43 AM CDT) Units Ordered 1 MAIN LAB Unit Number [id number] MAIN LAB Blood Component APHERESIS PLT,LEUKO MAIN LAB Type REDUCED,IRRADIATED,1ST CONT . Unit Division 0 [facility] MAIN LAB Status OF Unit TRANSFUSED [facility] MAIN LAB Transfusion OK TO TRANSFUSE [facility] MAIN LAB Status Specimen Other (Specify) Performing Organization Address [facility]/Zipcode Ph one Number MAIN LAB [address] [place] [address] * CBC AND DIFF CELLULAR THERAPEUTICS (02/18/2020 2:10 AM CDT) White Blood 3.5 (L) 4.5 - 11.0 K/UL MAIN LAB Cells RBC 2.39 (L) 4.4 - 5.5 M/UL KU MAIN [...] CALLED TO AND READ BACK BY/TIME/TECH CHINA Tersea AMY at 02/18/2020 02:33:28 by 1135 MPV [...] Count Manual Specimen Blood Performing Organization Address City/[facility] one Number MAIN LAB [address] [place] [address] * PHOSPHORUS CELLULAR THERAPEUTICS (02/18/2020 2:10 AM CDT) Phosphorus 3.5 2.0 - 4.5 MG/DL MAIN LAB Specimen Blood Performing Organization Address City/[facility] one Number MAIN LAB [address] [place] [address] * COMPREHENSIVE METABOLIC PANEL CELLULAR THERAPEUTICS (02/18/2020 2:10 AM CDT) Sodium 138 137 - 147 MMOL/L MAIN LAB Potassium 3.7 3.5 - 5.1 [...] (L) >60 mL/min [facility] MAIN LAB Comment: [place]ese The eGFR is not validated f or use in drug dosing adjustments. Continue to use estimated creatinine clearance per dosing reference text. Please contact the Clinical Pharmacist for questions. eGFR >60 >60 mL/min MAIN LAB Sudanese Comment: The eGFR is not validated for use in drug dosing adjustments. Continue to use estimated creatinine clearance per dosing reference text. Please contact the Clinical Pharmacist for questions. Specimen Blood Performing Organization Address City/[facility] Ph one Number MAIN LAB [address] [place] [address] * PHOSPHORUS CELLULAR THERAPEUTICS (02/17/2020 3:43 PM CDT) Phosphorus 2.8 2.0 - 4.5 MG/DL [facility] Specimen Blood Performing Organization Address City/[facility]/Zipcode Ph one Number [facility] [address] [place] [address] * TRANSFUSE RBC'S (02/17/2020 10:03 AM CDT) Specimen Blood * TRANSFUSE RBC'S (02/17/2020 10:03 AM CDT) Specimen Blood * OUTSIDE PATHOLOGY CONSULT (02/17/2020 7:37 AM CDT) PATHOLOGY [facility] [email or web address] Department of Pathology and Laboratory Medicine [address] [place] [address] Surgical Pathology Office: [phone] PATHOLOGY CONSULTATION NAME: JHONY CHI SURG PATH #: [id number] MR #: [id number] ALT ID #: LOCATION: 42 DATE OF PROCEDURE: 02/17/2020 AGE: 75 SEX: M DATE RECEIVED: 02/17/2020 : 1945 TIME RECEIVED: 07:37 PHYSICIAN: FARIDA DARDEN DATE OF REPORT: 02/17/2020 COPY TO: KIMBERLEY STARK ROC RICKS MD DATE OF PRINTIN02/17/2020 OUTSIDE INSTITUTION: [facility] [employer] [address] [place] [address] phone: [phone] fax: [phone] ############################## ############################## ############ Final Diagnosis: Outside case "[id number]" (date collected 02/06/2020). Bone marrow, aspirate, biopsy, [...] material indicated in this report. +++ +++ anthony/02/17/2020 ############################## ############################## ############ Material Received: A: Outside Slides x13, [id number], [facility], [employer], [facility], [place] [address] History: 75-year-old male with leukemia Gross Description: A. Received are thirteen (13) outside slides and a report labeled "[id number]". If immunohistochemical stains and/or in situ hybridization are cited in this report, the performance characteristics were determined by the Department of Pathology and Laboratory Medicine of the [facility] ([employer]) in compliance with CLIA'88 [...] of Pathology and Laboratory Medicine of the [facility]. It has not been cleared or approved by the FDA. The FDA has determined that such clearance or approval is not necessary. Specimen Performing Organization Address City/State/Zipcode Ph one Number MAIN LAB [address] [place] [address] * TYPE & CROSSMATCH (02/17/2020 4:27 AM CDT) Units Ordered 2 KU MAIN LAB Crossmatch 02/20/2020,2359 [facility] MAIN LAB Expires Record Check FOUND [facility] MAIN LAB ABO/RH(D) B POS [facility] MAIN LAB Antibody Screen NEG [facility] MAIN LAB Electronic YES [facility] MAIN LAB Crossmatch Unit Number [id number] [facility] MAIN LAB Blood Component RBC,ADSOL,LEUKO [facility] MAIN LAB Type REDUCED,IRRADIATED Unit Division 0 [facility] MAIN LAB Status OF Unit TRANSFUSED KU MAIN LAB Transfusion OK TO TRANSFUSE KU MAIN LAB Status Crossmatch COMPATIBLE,ELECTRONIC [facility] MAIN LAB Result Unit Number [id number] K[facility] MAIN LAB Blood Component RBC,ADSOL,LEUKO [facility] MAIN LAB Type REDUCED,IRRADIATED Unit Division 0 [facility] MAIN LAB Status OF Unit REL FROM ALLOC [facility] MAIN LAB Transfusion OK TO TRANSFUSE KU MAIN LAB Status Crossmatch COMPATIBLE,ELECTRONIC [facility] MAIN LAB Result Unit Number [id number] [facility] MAIN LAB Blood Component RBC,ADSOL,LEUKO [facility] MAIN LAB Type REDUCED,IRRADIATED,1ST CONT . Unit Division 0 [facility] MAIN LAB Status OF Unit TRANSFUSED [facility] MAIN LAB Transfusion OK TO TRANSFUSE K[facility] MAIN LAB Status Crossmatch COMPATIBLE,ELECTRONIC [facility] MAIN LAB Result Specimen Blood Performing Organization Address [facility] Ph one Number MAIN LAB [address] [place] [address] * CBC AND DIFF CELLULAR THERAPEUTICS (02/17/2020 2:22 AM CDT) White Blood 4.1 (L) 4.5 - 11.0 K/UL KU MAIN LAB Cells RBC 2.05 (L) 4.4 - 5.5 M/UL MAIN LAB Hemoglobin 6.4 (L) 13.5 - 16.5 GM/DL [facility] MAIN LAB Hematocrit 19.6 (L) 40 - 50 % [facility] MAIN LAB MCV 95.5 80 - 100 FL MAIN LAB MCH 30.9 26 - 34 PG MAIN LAB MCHC 32.4 32.0 - 36.0 G/DL MAIN LAB RDW 16.4 (H) 11 - 15 % [facility] MAIN LAB Platelet Count 31 (L) 150 - 400 K/UL MAIN LAB MPV 8.0 7 - 11 FL MAIN LAB Segmented 24 (L) 41 - 77 % MAIN LAB Neutrophils Bands 2 0 - 10 % [facility] MAIN LAB Lymphocytes 15 (L) 24 - 44 % [facility] MAIN LAB Monocytes 47 (H) 4 - 12 % [facility] MAIN LAB Eosinophil 2 0 - 5 % MAIN LAB Myelocyte 4 % MAIN LAB Blast 6 % MAIN LAB ANISO PRESENT MAIN LAB Platelet MKD DEC MAIN LAB Estimate Absolute 1.06 (L) 1.8 - 7.0 K/UL K[facility] MAIN LAB Neutrophil Count Manual Specimen Blood Performing Organization Address [facility] Ph one Number MAIN LAB [address] [place] [address] * PHOSPHORUS CELLULAR THERAPEUTICS (02/17/2020 2:22 AM CDT) Pathologist [facility] Phosphorus 3.5 2.0 - 4.5 MG/DL [facility] MAIN LAB Specimen Blood Performing Organization Address [facility] Ph one Number MAIN LAB [address] [place] [address] * COMPREHENSIVE METABOLIC PANEL CELLULAR THERAPEUTICS (02/17/2020 2:22 AM CDT) Sodium 139 137 - 147 MMOL/L [facility] MAIN LAB Potassium 3.6 3.5 - 5.1 MMOL/L MAIN LAB Chloride 107 98 - 110 [...] (L) >60 mL/min [facility] MAIN LAB Comment: [place]ese The eGFR is not validated f or use in drug dosing adjustments. Continue to use estimated creatinine clearance per dosing reference text. Please contact the Clinical Pharmacist for questions. eGFR 58 (L) >60 mL/min [facility] MAIN LAB [place]ese Comment: The eGFR is not validated for use in drug dosing adjustments. Continue to use estimated creatinine clearance per dosing reference text. Please contact the Clinical Pharmacist for questions. Specimen Blood Performing Organization Address City/[facility] one Number MAIN LAB [address] [place] [address] * PHOSPHORUS CELLULAR THERAPEUTICS (02/16/2020 4:22 PM CDT) Phosphorus 3.5 2.0 - 4.5 MG/DL MAIN LAB Specimen Blood Performing Organization Address City/[facility] one Number MAIN LAB [address] [place] [address] * PREPARE APHERESIS PLATELETS (02/16/2020 4:29 AM CDT) Units Ordered 1 MAIN LAB Unit Number [id number] MAIN LAB Blood Component APHERESIS PLT,LEUKO [facility] MAIN LAB Type REDUCED,IRRADIATED,3RD CONT . Unit Division 0 KU MAIN LAB Status OF Unit TRANSFUSED KU MAIN LAB Transfusion OK TO TRANSFUSE MAIN LAB Status Specimen Other (Specify) Performing Organization Address [facility]/Zipcode Ph one Number MAIN LAB [address] [place] [address] * VRE SCREEN (02/16/2020 3:40 AM CDT) Battery Name VRE SCREEN [facility] MAIN LAB Specimen PERIRECTAL SWAB MAIN LAB Description Special NONE [facility] MAIN LAB Requests Culture NO VRE ISOLATED MAIN LAB Report Status FINAL MAIN LAB 02/17/2020 Specimen Perirectal Swab Performing Organization Address [facility] Ph one Number MAIN LAB [address] [place] [address] * CBC AND DIFF CELLULAR THERAPEUTICS (02/16/2020 3:40 AM CDT) White Blood 5.4 4.5 - 11.0 K/UL [...] Absolute 1.40 (L) 1.8 - 7.0 K/UL MAIN LAB Neutrophil Count Manual Specimen Blood Performing Organization Address City/[facility] one Number MAIN LAB [address] [place] [address] * PHOSPHORUS CELLULAR THERAPEUTICS (02/16/2020 3:40 AM CDT) Phosphorus 4.1 2.0 - 4.5 MG/DL MAIN LAB Specimen Blood Performing Organization Address City/[facility]/Zipcode Ph one Number MAIN LAB [address] [place] [address] * COMPREHENSIVE METABOLIC PANEL CELLULAR THERAPEUTICS (02/16/2020 3:40 AM CDT) Sodium 139 137 - 147 MMOL/L MAIN LAB Potassium 3.9 3.5 - 5.1 [...] Phosphatase 208 (H) 25 - 110 U/L MAIN LAB AST (SGOT) 27 7 - 40 U/L KU MAIN LAB CO2 26 21 - 30 MMOL/L K[facility] MAIN LAB ALT (SGPT) 28 7 - 56 U/L MAIN LAB Anion Gap 7 3 - 12 MAIN LAB eGFR Non 42 (L) >60 mL/min MAIN LAB Comment: [place]ese The eGFR is not validated f or use in drug dosing adjustments. Continue to use estimated creatinine clearance per dosing reference text. Please contact the Clinical Pharmacist for questions. eGFR 51 (L) >60 mL/min [facility] Sudanese Comment: The eGFR is not validated for use in drug dosing adjustments. Continue to use estimated creatinine clearance per dosing reference text. Please contact the Clinical Pharmacist for questions. Specimen Blood Performing Organization Address City/[facility] Ph one Number [facility] [address] [place] [address] * RVP VIRAL PANEL PCR (02/15/2020 2:50 PM CDT) Pathologist [facility] Specimen Source NASOPHARYNGEAL SWAB [facility] This panel does not detect SARS-CoV-2, the etiologic agent of COVID-19. Contact Infection Control for testing of patients with suspected SARS-CoV-2 infection. This assay uses analyte specific reagents and has not been cleared by the US Food and Drug Administration. The performance characterics were determined by the [facility]. Adenovirus NOT DETECTED DN-NOT DETECTED MAIN LAB Coronavirus NOT DETECTED DN-NOT DETECTED [facility] 229E Coronavirus NOT DETECTED DN-NOT DETECTED [facility] HKU1 Coronavirus NOT DETECTED DN-NOT DETECTED [facility] NL63 Coronavirus NOT DETECTED DN-NOT DETECTED MAIN LAB OC43 Human NOT DETECTED DN-NOT DETECTED [facility] MAIN LAB Metapneumovirus Human NOT DETECTED DN-NOT DETECTED [facility] MAIN LAB Rhinovirus/ENTE ROVIRUS Influenza A NOT DETECTED DN-NOT DETECTED KU MAIN LAB H1N1 2009 Influenza A H1 NOT DETECTED DN-NOT DETECTED [facility] Influenza A H3 NOT DETECTED DN-NOT DETECTED [facility] Influenza B NOT DETECTED DN-NOT DETECTED [facility] Parainfluenza 1 NOT DETECTED DN-NOT DETECTED [facility] Parainfluenza 2 NOT DETECTED DN-NOT DETECTED [facility] Parainfluenza 3 NOT DETECTED DN-NOT DETECTED [facility] Parainfluenza 4 NOT DETECTED DN-NOT DETECTED [facility] RSV NOT DETECTED DN-NOT DETECTED [facility] Bordetella NOT DETECTED DN-NOT DETECTED [facility] Pertussis Chlamydophila NOT DETECTED DN-NOT DETECTED [facility] Pneumoniae Mycoplasma NOT DETECTED DN-NOT DETECTED [facility] Pneumoniae Specimen Performing Organization Address [facility] one Number [facility] [address] [place] [address] * COVID-19 (SARS-COV-2) PCR (02/15/2020 2:50 PM CDT) [facility] COVID-19 NASOPHARYNGEAL SWAB REFERENCE LAB (SARS-CoV-2) PCR Source COVID-19 NOT DETECTED DN-NOT DETECTED REFERENCE LAB (SARS-CoV-2) Comment: PCR This test has been authoriz ed by the FDA under an FDA Emergency Use Authorization (EUA). Performance characteristics were determined by the [facility] Specimen Nasopharyngeal Swab Performing Organization Address [facility] one Number REFERENCE LAB REFERENCE LAB See results for address. * PHOSPHORUS CELLULAR THERAPEUTICS (02/15/2020 2:50 PM CDT) Phosphorus 3.3 2.0 - 4.5 MG/DL K[facility] MAIN LAB Specimen Blood Performing Organization Address [facility]/State/Zipcode Ph one Number MAIN LAB [address] [place] [address] * ASPERGILLUS (GALACTOMANNAN) AG (02/15/2020 12:35 PM CDT) Pathologist [facility] Aspergillus 0.033 REFERENCE LAB Galactomann AG [...] Aspergillus Galactomannan EIA is a product of [employer] and is FDA approved for in vitro diagnostic use. Testing Performed At: [facility] [address] [place], [place] [address] CLIA ID: [id number] Specimen Blood Performing Organization Address City/State/[facility] Ph one Number REFERENCE LAB REFERENCE LAB See results for address. * FUNGITELL (02/15/2020 12:35 PM CDT) Pathologist [facility] Fungitell <31 REFERENCE LAB Reference range: <80 Unit: pg/mL . Interpretation: The Fungitell assay does not detect certain fungal species such as the genus Cryptococcus (Libia arteaga alGisele 1991) which produces very low levels of (1-3)-Xbft-U-Fgtviz. The assay also does not detect the Zygomycetes such as Absidia, Mucor and Rhizopus (Miriam et al. 1994) which are not known to produce (1-3)-Dykv-Q-Dsodyd. In addition, the yeast phase of Blastomyces dermatitidis produces little (1-3)-Dlni-A-Rxviqn and may not be detected by the [...] characteristics for these modifications were determined by [facility]. . If sample result is greater than 500 pg/mL, physician may order a titer of the sample. Please contact [facility] if you would like to order a retest of this sample to obtain an actual value. Samples are held for 1 week after initial testing date. Testing Performed At: [facility] [address] [place] [address] CLIA ID: [id number] Specimen Blood Performing Organization Address City/State/Zipcode Ph [...] pleural effusions. 3. 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 4. [...] to the myocardium s uggests anemia. Marked [place] coronary artery calcifications and aortic valvul ar [...] relative to the myocardium suggests anemia. Marked [place] coronary artery calcifications and aortic valvular calcifications. [...] pleural effusions. 3. Prior CABG with marked [place] delacruz ry and aortic valvular calcifications. 4. [...] on 02/15/2020 12:23 PM. Performing Organization Address [facility] one Number KU RAD RESULTS * CHEST [...] on 02/15/2020 10:42 AM. Performing Organization Address [facility]/Zipcode Ph one Number RAD RESULTS * PREPARE APHERESIS PLATELETS (02/15/2020 4:14 AM CDT) Pathologist [facility] Units Ordered 1 MAIN LAB Unit Number [id number] MAIN LAB Blood Component APHERESIS PLT,LEUKO MAIN LAB Type REDUCED,IRRADIATED,1ST CONT . Unit Division 0 MAIN LAB Status OF Unit TRANSFUSED MAIN LAB Transfusion OK TO TRANSFUSE KU MAIN LAB Status Specimen Other (Specify) Performing Organization Address [facility] Ph one Number MAIN LAB [address] [place] [address] * CBC AND DIFF CELLULAR THERAPEUTICS (02/15/2020 3:10 AM CDT) White Blood 6.7 4.5 - 11.0 K/UL MAIN LAB Cells RBC 2.28 (L) 4.4 - 5.5 M/UL MAIN LAB Hemoglobin 7.6 (L) 13.5 - 16.5 GM/DL MAIN LAB Hematocrit 21.8 (L) 40 - 50 % MAIN LAB MCV 95.7 80 - 100 FL MAIN LAB MCH 33.1 26 - 34 PG MAIN LAB MCHC 34.6 32.0 - 36.0 G/DL MAIN LAB RDW 17.1 (H) 11 - 15 % MAIN LAB Platelet Count 26 (L) 150 - 400 K/UL MAIN LAB MPV 8.2 7 - 11 FL MAIN LAB Nucleated RBCs 2 K/UL MAIN LAB Segmented 13 (L) 41 - 77 % MAIN LAB Neutrophils Lymphocytes 22 (L) 24 - 44 % MAIN LAB Monocytes 12 4 - 12 % MAIN LAB Eosinophil 2 0 - 5 % MAIN LAB Blast 51 % MAIN LAB ANISO PRESENT MAIN LAB POIK PRESENT MAIN LAB POLY PRESENT MAIN LAB Ovalocyte PRESENT MAIN LAB Teardrop PRESENT MAIN LAB Platelet MKD DEC MAIN LAB Estimate Absolute 0.87 (L) 1.8 - 7.0 K/UL MAIN LAB Neutrophil Count Manual Specimen Blood Performing Organization Address [facility] one Number MAIN LAB [address] [place] [address] * PHOSPHORUS CELLULAR THERAPEUTICS (02/15/2020 3:10 AM CDT) Phosphorus 4.0 2.0 - 4.5 MG/DL KU MAIN LAB Specimen Blood Performing Organization Address City/[facility] one Number [facility] MAIN LAB [address] [place] [address] * COMPREHENSIVE METABOLIC PANEL CELLULAR THERAPEUTICS (02/15/2020 [...] (L) >60 mL/min K[facility] MAIN LAB Comment: [place]ese The eGFR is not validated f or use in drug dosing adjustments. Continue to use estimated creatinine clearance per dosing reference text. Please contact the Clinical Pharmacist for questions. eGFR 52 (L) >60 mL/min K[facility] MAIN LAB [place]ese Comment: The eGFR is not validated for use in drug dosing adjustments. Continue to use estimated creatinine clearance per dosing reference text. Please contact the Clinical Pharmacist for questions. Specimen Blood Performing Organization Address City/[facility] Ph one Number [facility] MAIN LAB [address] [place] [address] * PHOSPHORUS CELLULAR THERAPEUTICS (02/14/2020 4:53 PM CDT) Phosphorus 4.1 2.0 - 4.5 MG/DL KU MAIN LAB Specimen Blood Performing Organization Address City/[facility]/Zipcode Ph one Number MAIN LAB [address] [place] [address] * CBC AND DIFF CELLULAR THERAPEUTICS (02/14/2020 3:16 AM CDT) White Blood 8.7 4.5 - 11.0 K/UL MAIN LAB Cells RBC 2.18 (L) 4.4 - 5.5 M/UL KU MAIN LAB Hemoglobin 7.3 (L) 13.5 - 16.5 GM/DL KU MAIN LAB Hematocrit 21.1 (L) 40 - 50 % KU MAIN LAB MCV 96.5 80 - 100 FL KU MAIN LAB MCH 33.5 26 - 34 PG KU MAIN LAB MCHC 34.7 32.0 - 36.0 G/DL KU MAIN LAB RDW 17.2 (H) 11 - 15 % KU MAIN LAB Platelet Count 31 (L) 150 - 400 K/UL KU MAIN LAB MPV 8.4 7 - 11 FL KU MAIN LAB Segmented 21 (L) 41 - 77 % KU MAIN LAB Neutrophils Lymphocytes 22 (L) 24 - 44 % MAIN LAB Monocytes 8 4 - 12 % MAIN LAB Eosinophil 4 0 - 5 % KU MAIN LAB Metamyelocyte 1 % KU MAIN LAB Blast 44 % MAIN LAB ANISO PRESENT MAIN LAB POIK PRESENT MAIN LAB POLY PRESENT MAIN LAB Ovalocyte PRESENT MAIN LAB Teardrop PRESENT MAIN LAB Platelet MKD DEC MAIN LAB Estimate Absolute 1.83 1.8 - 7.0 K/UL KU MAIN LAB Neutrophil Count Manual Specimen Blood Performing Organization Address City/[facility] Ph one Number MAIN LAB [address] [place] [address] * PHOSPHORUS CELLULAR THERAPEUTICS (02/14/2020 3:16 AM CDT) Pathologist [facility] Phosphorus 4.7 (H) 2.0 - 4.5 MG/DL KU MAIN LAB Specimen Blood Performing Organization Address City/[facility] Ph one Number MAIN LAB [address] [place] [address] * COMPREHENSIVE METABOLIC PANEL CELLULAR THERAPEUTICS (02/14/2020 [...] Total Protein 6.0 6.0 - 8.0 G/DL MAIN LAB Total Bilirubin 1.0 0.3 - 1.2 MG/DL KU MAIN LAB Albumin 3.2 (L) 3.5 - 5.0 G/DL MAIN LAB Alk Phosphatase 193 (H) 25 - 110 U/L MAIN LAB AST (SGOT) 26 7 - 40 U/L KU MAIN LAB CO2 23 21 - 30 MMOL/L KU MAIN LAB ALT (SGPT) 28 7 - 56 U/L KU MAIN LAB Anion Gap 8 3 - 12 MAIN LAB eGFR Non 37 (L) >60 mL/min MAIN LAB Comment: [place]ese The eGFR is not validated f or use in drug dosing adjustments. Continue to use estimated creatinine clearance per dosing reference text. Please contact the Clinical Pharmacist for questions. eGFR 44 (L) >60 mL/min MAIN LAB Sudanese Comment: The eGFR is not validated for use in drug dosing adjustments. Continue to use estimated creatinine clearance per dosing reference text. Please contact the Clinical Pharmacist for questions. Specimen Blood Performing Organization Address [facility] Ph one Number MAIN LAB [address] [place] [address] * PHOSPHORUS CELLULAR THERAPEUTICS (02/13/2020 4:45 PM CDT) Phosphorus 4.8 (H) 2.0 - 4.5 MG/DL MAIN LAB Specimen Blood Performing Organization Address [facility] Number MAIN LAB [address] [place] [address] * GRAM STAIN (02/13/2020 6:36 AM CDT) Battery Name GRAM STAIN MAIN LAB Specimen SPUTUM MAIN LAB Description Special NONE MAIN LAB Requests Gram Stain LESS THAN 10/LPF MAIN LAB NEUTROPHILS 10-25/LPF SQUAMOUS EPITHELIAL CELLS FEW MIXED BACTERIA Report Status FINAL MAIN LAB 02/13/2020 Specimen Sputum Performing Organization Address [facility] Ph one Number MAIN LAB [address] [place] [address] * CULTURE-RESP,LOWER W/SENSITIVITY (02/13/2020 6:36 AM CDT) Battery Name LOWER RESP CULTURE KU MAIN LAB Specimen SPUTUM MAIN LAB Description Special NONE KU MAIN LAB Requests Direct Gram LESS THAN 10/LPF MAIN LAB Stain NEUTROPHILS 10-25/LPF SQUAMOUS EPITHELIAL CELLS FEW MIXED BACTERIA Culture Heavy growth MAIN LAB NORMAL OROPHARYNGEAL KJ Report Status FINAL MAIN LAB 02/15/2020 Specimen Sputum Performing Organization Address City/State/Zipcode Ph one Number MAIN LAB [address] [place] [address] * PREPARE APHERESIS PLATELETS (02/13/2020 5:16 AM CDT) Units Ordered 1 MAIN LAB Unit Number [id number] MAIN LAB Blood Component APHERESIS PLT,LEUKO MAIN LAB Type REDUCED,IRRADIATED,2ND CONT . Unit Division 0 MAIN LAB Status OF Unit TRANSFUSED MAIN LAB Transfusion OK TO TRANSFUSE MAIN LAB Status Specimen Other (Specify) Performing Organization Address City/State/Zipcode Ph one Number MAIN LAB [address] [place] [address] * CBC AND DIFF CELLULAR THERAPEUTICS (02/13/2020 4:40 AM CDT) White Blood 11.8 (H) 4.5 - 11.0 K/UL MAIN LAB Cells RBC 2.45 (L) 4.4 - 5.5 M/UL MAIN LAB Hemoglobin 7.9 (L) 13.5 - 16.5 GM/DL MAIN LAB Hematocrit 23.7 (L) 40 - 50 % MAIN LAB MCV 96.5 80 - 100 FL MAIN LAB MCH 32.3 26 - 34 PG MAIN LAB MCHC 33.5 32.0 - 36.0 G/DL MAIN LAB RDW 18.1 (H) 11 - 15 % MAIN LAB Platelet Count 28 (L) 150 - 400 K/UL MAIN LAB MPV 8.9 7 - 11 FL MAIN LAB Segmented 12 (L) 41 - 77 % MAIN LAB Neutrophils Lymphocytes 12 (L) 24 - 44 % MAIN LAB Monocytes 16 (H) 4 - 12 % MAIN LAB Eosinophil 4 0 - 5 % MAIN LAB Myelocyte 2 % MAIN LAB Blast 54 % MAIN LAB ANISO PRESENT MAIN LAB POIK PRESENT MAIN LAB POLY PRESENT MAIN LAB Ovalocyte PRESENT KU MAIN LAB Platelet MKD DEC KU MAIN LAB Estimate Absolute 1.42 (L) 1.8 - 7.0 K/UL KU MAIN LAB Neutrophil Count Manual Specimen Blood Performing Organization Address [facility] one Number KU MAIN LAB [address] [place] [address] * PHOSPHORUS CELLULAR THERAPEUTICS (02/13/2020 4:40 AM CDT) Phosphorus 4.8 (H) 2.0 - 4.5 MG/DL KU MAIN LAB Specimen Blood Performing Organization Address [facility] one Number KU MAIN LAB [address] [place] [address] * COMPREHENSIVE METABOLIC PANEL CELLULAR THERAPEUTICS (02/13/2020 [...] (L) >60 mL/min KU MAIN LAB Comment: [place]ese The eGFR is not validated f or use in drug dosing adjustments. Continue to use estimated creatinine clearance per dosing reference text. Please contact the Clinical Pharmacist for questions. eGFR 45 (L) >60 mL/min KU MAIN LAB Sudanese Comment: The eGFR is not validated for use in drug dosing adjustments. Continue to use estimated creatinine clearance per dosing reference text. Please contact the Clinical Pharmacist for questions. Specimen Blood Performing Organization Address [facility] one Number MAIN LAB [address] [place] [address] * MAGNESIUM (02/13/2020 4:40 AM CDT) Magnesium 2.4 1.6 - 2.6 mg/dL KU MAIN LAB Specimen Blood Performing Organization Address [facility] one Number MAIN LAB [address] [place] [address] * PHOSPHORUS CELLULAR THERAPEUTICS (02/12/2020 4:00 PM CDT) Phosphorus 5.2 (H) 2.0 - 4.5 MG/DL MAIN LAB Specimen Blood Performing Organization Address [facility] one Number MAIN LAB [address] [place] [address] * TRANSFUSE RBC'S (02/12/2020 9:48 AM CDT) Specimen Blood * TRANSFUSE RBC'S (02/12/2020 9:48 AM CDT) Specimen Blood * URIC ACID (02/12/2020 4:00 AM CDT) Uric Acid 5.7 4.0 - 8.0 MG/DL MAIN LAB Specimen Blood Performing Organization Address [facility] one Number MAIN LAB [address] [place] [address] * PTT (APTT) (02/12/2020 4:00 AM CDT) APTT 19.7 (L) 24.0 - 36.5 SEC MAIN LAB Specimen Blood Performing Organization Address [facility] one Number MAIN LAB [address] [place] [address] * PROTIME INR (PT) (02/12/2020 4:00 AM CDT) INR 1.3 (H) 0.8 - 1.2 MAIN LAB Specimen Blood Performing Organization Address [facility] one Number MAIN LAB [address] [place] [address] * PHOSPHORUS CELLULAR THERAPEUTICS (02/12/2020 4:00 AM CDT) Phosphorus 6.3 (H) 2.0 - 4.5 MG/DL KU MAIN LAB Specimen Blood Performing Organization Address [facility] one Number KU MAIN LAB [address] [place] [address] * LDH-LACTATE DEHYDROGENASE (02/12/2020 4:00 AM CDT) Lactate 415 (H) 100 - 210 U/L KU MAIN LAB Dehydrogenase Specimen Blood Performing Organization Address [facility] Ph one Number [facility] MAIN LAB [address] [place] [address] * FIBRINOGEN (02/12/2020 4:00 AM CDT) Fibrinogen 449 (H) 200 - 400 MG/DL KU MAIN LAB Specimen Blood Performing Organization Address [facility] one Number KU MAIN LAB [address] [place] [address] * CBC AND DIFF CELLULAR THERAPEUTICS (02/12/2020 4:00 AM CDT) White Blood 20.9 (H) 4.5 - 11.0 K/UL MAIN LAB Cells RBC 2.07 (L) 4.4 - 5.5 M/UL MAIN LAB Hemoglobin 6.8 (L) 13.5 - 16.5 GM/DL KU MAIN LAB Hematocrit 20.5 (L) 40 - 50 % MAIN LAB MCV 98.7 80 - 100 FL MAIN LAB MCH 32.9 26 - 34 PG MAIN LAB MCHC 33.3 32.0 - 36.0 G/DL KU MAIN LAB RDW 17.8 (H) 11 - 15 % KU MAIN LAB Platelet Count 37 (L) 150 - 400 K/UL MAIN LAB MPV 8.8 7 - 11 FL MAIN LAB Nucleated RBCs 2 K/UL MAIN LAB Segmented 9 (L) 41 - 77 % KU MAIN LAB Neutrophils Bands 2 0 - 10 % KU MAIN LAB Lymphocytes 14 (L) 24 - 44 % MAIN LAB Monocytes 16 (H) 4 - 12 % MAIN LAB Eosinophil 1 0 - 5 % MAIN LAB Myelocyte 1 % MAIN LAB Blast 57 % MAIN LAB ANISO PRESENT KU MAIN LAB Platelet MKD DEC MAIN LAB Estimate Absolute 2.30 1.8 - 7.0 K/UL KU MAIN LAB Neutrophil Count Manual Specimen Blood Performing Organization Address [facility] one Number KU MAIN LAB [address] [place] [address] * COMPREHENSIVE METABOLIC PANEL CELLULAR THERAPEUTICS (02/12/2020 [...] (L) >60 mL/min KU MAIN LAB Comment: [place]ese The eGFR is not validated f or use in drug dosing adjustments. Continue to use estimated creatinine clearance per dosing reference text. Please contact the Clinical Pharmacist for questions. eGFR 36 (L) >60 mL/min KU MAIN LAB [place]ese Comment: The eGFR is not validated for use in drug dosing adjustments. Continue to use estimated creatinine clearance per dosing reference text. Please contact the Clinical Pharmacist for questions. Specimen Blood Performing Organization Address City/State/Zipcode Ph one Number KU MAIN LAB [address] [place] [address] * MAGNESIUM (02/12/2020 4:00 AM CDT) Magnesium 2.7 (H) 1.6 - 2.6 mg/dL KU MAIN LAB Specimen Blood Performing Organization Address City/State/Zipcode Ph one Number KU MAIN LAB [address] [place] [address] * TRANSFUSE APHERESIS PLATELETS (02/12/2020 1:39 AM CDT) * TRANSFUSE APHERESIS PLATELETS (02/12/2020 1:39 AM CDT) * PREPARE APHERESIS PLATELETS (02/11/2020 8:31 PM CDT) Units Ordered 1 MAIN LAB Unit Number [id number] MAIN LAB Blood Component APHERESIS PLT,LEUKO KU MAIN LAB Type REDUCED,IRRADIATED Unit Division 0 KU MAIN LAB Status OF Unit TRANSFUSED MAIN LAB Transfusion OK TO TRANSFUSE MAIN LAB Status Specimen Other (Specify) Performing Organization Address [facility] one Number MAIN LAB [address] [place] [address] * URIC ACID (02/11/2020 4:00 PM CDT) Uric Acid 5.3 4.0 - 8.0 MG/DL MAIN LAB Specimen Blood Performing Organization Address [facility] Ph one Number MAIN LAB [address] [place] [address] * PTT (APTT) (02/11/2020 4:00 PM CDT) APTT 29.3 24.0 - 36.5 SEC MAIN LAB Specimen Blood Performing Organization Address [facility] Ph one Number MAIN LAB [address] [place] [address] * PROTIME INR (PT) (02/11/2020 4:00 PM CDT) INR 1.4 (H) 0.8 - 1.2 MAIN LAB Specimen Blood Performing Organization Address [facility] one Number MAIN LAB [address] [place] [address] * PHOSPHORUS CELLULAR THERAPEUTICS (02/11/2020 4:00 PM CDT) Phosphorus 6.5 (H) 2.0 - 4.5 MG/DL MAIN LAB Specimen Blood Performing Organization Address [facility] Ph one Number MAIN LAB [address] [place] [address] * FIBRINOGEN (02/11/2020 4:00 PM CDT) Fibrinogen 471 (H) 200 - 400 MG/DL MAIN LAB Specimen Blood Performing Organization Address [facility] Ph one Number MAIN LAB [address] [place] [address] * CBC AND DIFF CELLULAR THERAPEUTICS (02/11/2020 [...] MAIN LAB Ovalocyte PRESENT KU MAIN LAB Teardrop PRESENT KU MAIN LAB Platelet MKD DEC KU MAIN LAB Estimate Absolute 6.42 1.8 - 7.0 K/UL KU MAIN LAB Neutrophil Count Manual Specimen Blood Performing Organization Address City/State[facility] one Number [facility] MAIN LAB [address] [place] [address] * BASIC METABOLIC PANEL CELLULAR THERAPEUTICS (02/11/2020 4:00 PM CDT) Pathologist [facility] Sodium 137 137 - 147 MMOL/L KU [...] 28 (L) >60 mL/min MAIN LAB Comment: [place]ese The eGFR is not validated f or use in drug dosing adjustments. Continue to use estimated creatinine clearance per dosing reference text. Please contact the Clinical Pharmacist for questions. eGFR 34 (L) >60 mL/min MAIN LAB [place]ese Comment: The eGFR is not validated for use in drug dosing adjustments. Continue to use estimated creatinine clearance per dosing reference text. Please contact the Clinical Pharmacist for questions. Specimen Blood Performing Organization Address City/[facility] one Number MAIN LAB [address] [place] [address] * URIC ACID (02/11/2020 2:45 AM CDT) Uric Acid 5.1 4.0 - 8.0 MG/DL MAIN LAB Specimen Blood Performing Organization Address [facility] one Number MAIN LAB [address] [place] [address] * PTT (APTT) (02/11/2020 2:45 AM CDT) APTT 26.8 24.0 - 36.5 SEC MAIN LAB Specimen Blood Performing Organization Address [facility] one Number MAIN LAB [address] [place] [address] * PROTIME INR (PT) (02/11/2020 2:45 AM CDT) INR 1.4 (H) 0.8 - 1.2 MAIN LAB Specimen Blood Performing Organization Address [facility] one Number MAIN LAB [address] [place] [address] * PHOSPHORUS CELLULAR THERAPEUTICS (02/11/2020 2:45 AM CDT) Phosphorus 7.3 (H) 2.0 - 4.5 MG/DL MAIN LAB Specimen Blood Performing Organization Address [facility] one Number MAIN LAB [address] [place] [address] * LDH-LACTATE DEHYDROGENASE (02/11/2020 2:45 AM CDT) Lactate 509 (H) 100 - 210 U/L MAIN LAB Dehydrogenase Specimen Blood Performing Organization Address [facility] one Number KU MAIN LAB [address] [place] [address] * FIBRINOGEN (02/11/2020 2:45 AM CDT) Pathologist [facility] Fibrinogen 443 (H) 200 - 400 MG/DL KU MAIN LAB Specimen Blood Performing Organization Address [facility] Ph one Number [facility] MAIN LAB [address] [place] [address] * CBC AND DIFF CELLULAR THERAPEUTICS (02/11/2020 2:45 AM CDT) Pathologist [facility] White Blood 31.0 (H) 4.5 - 11.0 K/UL KU MAIN LAB Cells RBC 2.30 (L) 4.4 - 5.5 M/UL KU MAIN LAB Hemoglobin 7.3 (L) 13.5 - 16.5 GM/DL KU MAIN LAB Hematocrit 22.5 (L) 40 - 50 % KU MAIN LAB MCV 98.0 80 - 100 FL KU MAIN LAB MCH 31.9 26 - 34 PG KU MAIN LAB MCHC 32.6 32.0 - 36.0 G/DL KU MAIN LAB RDW 17.9 (H) 11 - 15 % KU MAIN LAB Platelet Count 37 (L) 150 - 400 K/UL KU MAIN LAB MPV 9.0 7 - 11 FL KU MAIN LAB Nucleated RBCs 1 K/UL KU MAIN LAB Segmented 21 (L) 41 - 77 % KU MAIN LAB Neutrophils Lymphocytes 11 (L) 24 - 44 % KU MAIN LAB Monocytes 8 4 - 12 % KU MAIN LAB Eosinophil 1 0 - 5 % KU MAIN LAB Metamyelocyte 1 % KU MAIN LAB Blast 58 % KU MAIN LAB ANISO PRESENT MAIN LAB POLY PRESENT KU MAIN LAB Platelet MKD DEC KU MAIN LAB Estimate Absolute 6.51 1.8 - 7.0 K/UL KU MAIN LAB Neutrophil Count Manual Specimen Blood Performing Organization Address [facility] Ph one Number [facility]U MAIN LAB [address] [place] [address] * COMPREHENSIVE METABOLIC PANEL CELLULAR THERAPEUTICS (02/11/2020 2:45 AM CDT) Pathologist [facility] Sodium 139 137 - 147 MMOL/L KU [...] LAB eGFR Non 27 (L) >60 mL/min MAIN LAB Comment: [place]ese The eGFR is not validated f or use in drug dosing adjustments. Continue to use estimated creatinine clearance per dosing reference text. Please contact the Clinical Pharmacist for questions. eGFR 33 (L) >60 mL/min MAIN LAB [place]ese Comment: The eGFR is not validated for use in drug dosing adjustments. Continue to use estimated creatinine clearance per dosing reference text. Please contact the Clinical Pharmacist for questions. Specimen Blood Performing Organization Address City/State/Zipcode Ph one Number MAIN LAB [address] [place] [address] * MAGNESIUM (02/11/2020 2:45 AM CDT) Magnesium 2.4 1.6 - 2.6 mg/dL [facility] LAB Specimen Blood Performing Organization Address City/[facility]/Zipcode Ph one Number [facility] LAB [address] [place] [address] * TRANSFUSE RBC'S (02/11/2020 1:08 AM CDT) Specimen Blood * TRANSFUSE RBC'S (02/11/2020 1:08 AM CDT) Specimen Blood * TRANSFUSE APHERESIS PLATELETS (02/10/2020 8:53 PM CDT) * TRANSFUSE APHERESIS PLATELETS (02/10/2020 8:53 PM CDT) * TYPE & CROSSMATCH (02/10/2020 6:27 PM CDT) Units Ordered 2 MAIN LAB Crossmatch 02/13/2020 MAIN LAB Expires Record Check FOUND KU MAIN LAB ABO/RH(D) B POS KU MAIN LAB Antibody Screen NEG KU MAIN LAB Electronic YES KU MAIN LAB Crossmatch Unit Number [id number] KU MAIN LAB Blood Component RBC,ADSOL,LEUKO KU MAIN LAB Type REDUCED,IRRADIATED Unit Division 0 KU MAIN LAB Status OF Unit TRANSFUSED KU MAIN LAB Transfusion OK TO TRANSFUSE KU MAIN LAB Status Crossmatch COMPATIBLE,ELECTRONIC KU MAIN LAB Result Unit Number [id number] KU MAIN LAB Blood Component RBC,ADSOL,LEUKO KU MAIN LAB Type REDUCED,IRRADIATED Unit Division 0 KU MAIN LAB Status OF Unit TRANSFUSED KU MAIN LAB Transfusion OK TO TRANSFUSE KU MAIN LAB Status Crossmatch COMPATIBLE,ELECTRONIC KU MAIN LAB Result Specimen Blood Performing Organization Address City/[facility]/Zipcode Ph one Number MAIN LAB [address] [place] [address] * PREPARE APHERESIS PLATELETS (02/10/2020 5:49 PM CDT) Units Ordered 1 MAIN LAB Unit Number [id number] MAIN LAB Blood Component APHERESIS PLT,LEUKO KU MAIN LAB Type REDUCED,IRRADIATED,1ST CONT . Unit Division 0 MAIN LAB Status OF Unit TRANSFUSED KU MAIN LAB Transfusion OK TO TRANSFUSE KU MAIN LAB Status Specimen Other (Specify) Performing Organization Address City/[facility]/Zipcode Ph one Number MAIN LAB [address] [place] [address] * URIC ACID (02/10/2020 4:24 PM CDT) Uric Acid 4.7 4.0 - 8.0 MG/DL KU MAIN LAB Specimen Blood Performing Organization Address City/[facility] Ph one Number MAIN LAB [address] [place] [phone] * PTT (APTT) (02/10/2020 4:24 PM CDT) APTT 22.9 (L) 24.0 - 36.5 SEC KU MAIN LAB Specimen Blood Performing Organization Address [facility] Ph one Number MAIN LAB [address] [place] [phone] * PROTIME INR (PT) (02/10/2020 4:24 PM CDT) INR 1.5 (H) 0.8 - 1.2 KU MAIN LAB Specimen Blood Performing Organization Address [facility] Ph one Number [facility] MAIN LAB [address] [place] [address] * PHOSPHORUS CELLULAR THERAPEUTICS (02/10/2020 4:24 PM CDT) Phosphorus 7.3 (H) 2.0 - 4.5 MG/DL KU MAIN LAB Specimen Blood Performing Organization Address [facility] Ph one Number [facility] MAIN LAB [address] [place] [address] * FIBRINOGEN (02/10/2020 4:24 PM CDT) Fibrinogen 432 (H) 200 - 400 MG/DL KU MAIN LAB Specimen Blood Performing Organization Address [facility] one Number KU MAIN LAB [address] [place] [address] * CBC AND DIFF CELLULAR THERAPEUTICS (02/10/2020 [...] Manual Specimen Blood Performing Organization Address [facility] one Number MAIN LAB [address] [place] [phone] * BASIC METABOLIC PANEL CELLULAR THERAPEUTICS (02/10/2020 4:24 PM CDT) Pathologist [facility] Sodium 139 137 - 147 MMOL/L KU MAIN LAB Potassium 4.5 3.5 - 5.1 MMOL/L KU MAIN LAB Chloride 108 98 - 110 MMOL/L KU MAIN LAB CO2 21 21 - 30 MMOL/L KU MAIN LAB Anion Gap 10 3 - 12 KU MAIN LAB Glucose 121 (H) 70 - 100 MG/DL KU MAIN LAB Blood Urea 55 (H) 7 - 25 MG/DL KU MAIN LAB Nitrogen Creatinine 2.42 (H) 0.4 - 1.24 MG/DL KU MAIN LAB Calcium 8.2 (L) 8.5 - 10.6 MG/DL KU MAIN LAB eGFR Non 26 (L) >60 mL/min KU MAIN LAB Comment: [place]ese The eGFR is not validated f or use in drug dosing adjustments. Continue to use estimated creatinine clearance per dosing reference text. Please contact the Clinical Pharmacist for questions. eGFR 32 (L) >60 mL/min KU MAIN LAB [place]ese Comment: The eGFR is not validated for use in drug dosing adjustments. Continue to use estimated creatinine clearance per dosing reference text. Please contact the Clinical Pharmacist for questions. Specimen Blood Performing Organization Address [facility] Ph one Number MAIN LAB [address] [place] [address] * COVID-19 (SARS-COV-2) PCR (02/10/2020 11:58 AM CDT) Pathologist [facility] COVID-19 NASOPHARYNGEAL SWAB REFERENCE LAB (SARS-CoV-2) PCR Source COVID-19 NOT DETECTED DN-NOT DETECTED REFERENCE LAB (SARS-CoV-2) Comment: PCR This test has been authoriz ed by the FDA under an FDA Emergency Use Authorization (EUA). Performance characteristics were determined by the [facility] Laboratories Specimen Nasopharyngeal Swab Performing Organization Address City/[facility] Ph one Number REFERENCE LAB REFERENCE LAB See results for address. * URIC ACID (02/10/2020 2:40 AM CDT) Pathologist [facility] Uric Acid 4.0 4.0 - 8.0 MG/DL KU MAIN LAB Specimen Blood Performing Organization Address City/[facility] Ph one Number [facility]U MAIN LAB [address] [place] [phone] * PTT (APTT) (02/10/2020 2:40 AM CDT) APTT 28.5 24.0 - 36.5 SEC MAIN LAB Specimen Blood Performing Organization Address [facility] one Number MAIN LAB [address] [place] [address] * PROTIME INR (PT) (02/10/2020 2:40 AM CDT) INR 1.6 (H) 0.8 - 1.2 KU MAIN LAB Specimen Blood Performing Organization Address [facility] one Number MAIN LAB [address] [place] [address] * PHOSPHORUS CELLULAR THERAPEUTICS (02/10/2020 2:40 AM CDT) Phosphorus 7.7 (H) 2.0 - 4.5 MG/DL MAIN LAB Specimen Blood Performing Organization Address [facility] one Number MAIN LAB [address] [place] [phone] * LDH-LACTATE DEHYDROGENASE (02/10/2020 2:40 AM CDT) Lactate 626 (H) 100 - 210 U/L MAIN LAB Dehydrogenase Specimen Blood Performing Organization Address [facility] one Number MAIN LAB [address] [place] [phone] * FIBRINOGEN (02/10/2020 2:40 AM CDT) Fibrinogen 476 (H) 200 - 400 MG/DL MAIN LAB Specimen Blood Performing Organization Address [facility] one Number MAIN LAB [address] [place] [phone] * CBC AND DIFF CELLULAR THERAPEUTICS (02/10/2020 [...] Count Manual Specimen Blood Performing Organization Address City/State/Zipcode Ph one Number KU MAIN LAB [address] [place] [address] * COMPREHENSIVE METABOLIC PANEL CELLULAR THERAPEUTICS (02/10/2020 [...] 5.0 G/DL KU MAIN LAB Alk Phosphatase 145 (H) 25 - 110 U/L KU MAIN LAB AST (SGOT) 38 7 - 40 U/L KU MAIN LAB CO2 22 21 - 30 MMOL/L KU MAIN LAB ALT (SGPT) 30 7 - 56 U/L KU MAIN LAB Anion Gap 10 3 - 12 KU MAIN LAB eGFR Non 28 (L) >60 mL/min MAIN LAB Comment: [place]ese The eGFR is not validated f or use in drug dosing adjustments. Continue to use estimated creatinine clearance per dosing reference text. Please contact the Clinical Pharmacist for questions. eGFR 34 (L) >60 mL/min KU MAIN LAB [place] Comment: The eGFR is not validated for use in drug dosing adjustments. Continue to use estimated creatinine clearance per dosing reference text. Please contact the Clinical Pharmacist for questions. Specimen Blood Performing Organization Address [facility] one Number MAIN LAB [address] [place] [address] * MAGNESIUM (02/10/2020 2:40 AM CDT) Pathologist [facility] Magnesium 2.1 1.6 - 2.6 mg/dL MAIN LAB Specimen Blood Performing Organization Address [facility] one Number MAIN LAB [address] [place] [address] * PREPARE APHERESIS PLATELETS (02/09/2020 5:59 PM CDT) Pathologist [facility] Units Ordered 1 MAIN LAB Unit Number [id number] MAIN LAB Blood Component APHERESIS PLT,LEUKO KU MAIN LAB Type REDUCED,IRRADIATED,1ST CONT . Unit Division 0 MAIN LAB Status OF Unit TRANSFUSED MAIN LAB Transfusion OK TO TRANSFUSE MAIN LAB Status Specimen Other (Specify) Performing Organization Address [facility] one Number MAIN LAB [address] [place] [address] * CULTURE-BLOOD W/SENSITIVITY (02/09/2020 5:23 PM CDT) Battery Name BLOOD CULTURE MAIN LAB Specimen BLOOD MAIN LAB Description LEFT ARM Special NONE MAIN LAB Requests Culture NO GROWTH 5 DAYS KU MAIN LAB Report Status FINAL MAIN LAB 02/15/2020 Specimen Blood Performing Organization Address [facility] one Number MAIN LAB [address] [place] [address] * CULTURE-BLOOD W/SENSITIVITY (02/09/2020 4:19 PM CDT) Battery Name BLOOD CULTURE MAIN LAB Specimen BLOOD MAIN LAB Description RIGHT DOUBLE LUMEN PICC LINE RED Special aerobic bottle only MAIN LAB Requests Culture NO GROWTH 5 DAYS MAIN LAB Report Status FINAL MAIN LAB 02/15/2020 Specimen Blood Performing Organization Address [facility] one Number MAIN LAB [address] [place] [address] * CULTURE-BLOOD W/SENSITIVITY (02/09/2020 4:19 PM CDT) Battery Name BLOOD CULTURE KU MAIN LAB Specimen BLOOD KU MAIN LAB Description RIGHT DOUBLE LUMEN PICC LINE PURPLE Special aerobic bottle only KU MAIN LAB Requests Culture NO GROWTH 5 DAYS KU MAIN LAB Report Status FINAL MAIN LAB 02/15/2020 Specimen Blood Performing Organization Address [facility] one Number MAIN LAB [address] [place] [address] * URIC ACID (02/09/2020 4:19 PM CDT) Uric Acid 3.2 (L) 4.0 - 8.0 MG/DL MAIN LAB Specimen Blood Performing Organization Address [facility] one Number MAIN LAB [address] [place] [address] * PTT (APTT) (02/09/2020 4:19 PM CDT) APTT 31.3 24.0 - 36.5 SEC MAIN LAB Specimen Blood Performing Organization Address [facility] one Number MAIN LAB [address] [place] [address] * PROTIME INR (PT) (02/09/2020 4:19 PM CDT) INR 1.7 (H) 0.8 - 1.2 MAIN LAB Specimen Blood Performing Organization Address [facility] one Number MAIN LAB [address] [place] [address] * PHOSPHORUS CELLULAR THERAPEUTICS (02/09/2020 4:19 PM CDT) Phosphorus 4.3 2.0 - 4.5 MG/DL MAIN LAB Specimen Blood Performing Organization Address [facility] one Number MAIN LAB [address] [place] [address] * FIBRINOGEN (02/09/2020 4:19 PM CDT) Fibrinogen 432 (H) 200 - 400 MG/DL MAIN LAB Specimen Blood Performing Organization Address [facility] one Number MAIN LAB [address] [place] [address] * CBC AND DIFF CELLULAR THERAPEUTICS (02/09/2020 4:19 PM CDT) White Blood 81.9 (HH)Comment: Value noted, 4.5 [...] Count Manual Specimen Blood Performing Organization Address City/State/Zipcode Ph one Number MAIN LAB [address] [place] [address] * BASIC METABOLIC PANEL CELLULAR THERAPEUTICS (02/09/2020 4:19 PM CDT) Pathologist [facility] Sodium 140 137 - 147 MMOL/L KU [...] (L) >60 mL/min KU MAIN LAB Comment: [place]ese The eGFR is not validated f or use in drug dosing adjustments. Continue to use estimated creatinine clearance per dosing reference text. Please contact the Clinical Pharmacist for questions. eGFR 43 (L) >60 mL/min KU MAIN LAB Sudanese Comment: The eGFR is not validated for use in drug dosing adjustments. Continue to use estimated creatinine clearance per dosing reference text. Please contact the Clinical Pharmacist for questions. Specimen Blood Performing Organization Address City/State/Zipcode Ph one Number KU MAIN LAB [address] [place] [address] * 2-D + DOPPLER ECHOCARDIOGRAM (02/09/2020 2:54 [...] 2.46 m2 OTHER OUTSIDE LAB CV ECHO PV CHINA [place] OTHER OUTSIDE INFANT TODDLER LEAD TEACHER LAB MV mean 4 mmHg OTHER OUTSIDE gradient LAB MV valve area 2.72 cm2 OTHER OUTSIDE P1/2 LAB FS 34.04 28 - 44 % OTHER OUTSIDE LAB EF 57.87 % OTHER OUTSIDE LAB LV mass 259.15 88 - 224 g OTHER OUTSIDE LAB RWT 0.42 <=0.42 OTHER OUTSIDE LAB Aortic valve 1.91 cm2 OTHER OUTSIDE area = LAB AV index 0.50 OTHER OUTSIDE (ty[place]) LAB MV valve area 2.90 cm2 OTHER [...] 34 OTHER OUTSIDE Index LAB Cardiology Siemens [id number] OTHER OUTSIDE Ultrasound LAB Machine Left Ventricle [...] on 02/09/2020 11:02 AM. Performing Organization Address [facility] one Number KU RAD RESULTS * VRE SCREEN (02/09/2020 7:34 AM CDT) Battery Name VRE SCREEN KU MAIN LAB Specimen PERIRECTAL SWAB KU MAIN LAB Description Special NONE KU MAIN LAB Requests Culture NO VRE ISOLATED KU MAIN LAB Report Status FINAL KU MAIN LAB 02/10/2020 Specimen Perirectal Swab Performing Organization Address [facility] one Number MAIN LAB [address] [place] [address] * URIC ACID (02/09/2020 2:12 AM CDT) Uric Acid 3.0 (L) 4.0 - 8.0 MG/DL KU MAIN LAB Specimen Blood Performing Organization Address [facility] one Number MAIN LAB [address] [place] [address] * PTT (APTT) (02/09/2020 2:12 AM CDT) APTT 27.6 24.0 - 36.5 SEC MAIN LAB Specimen Blood Performing Organization Address [facility] one Number MAIN LAB [address] [place] [address] * PROTIME INR (PT) (02/09/2020 2:12 AM CDT) INR 1.5 (H) 0.8 - 1.2 MAIN LAB Specimen Blood Performing Organization Address [facility] one Number MAIN LAB [address] [place] [address] * PHOSPHORUS CELLULAR THERAPEUTICS (02/09/2020 2:12 AM CDT) Phosphorus 4.5 2.0 - 4.5 MG/DL MAIN LAB Specimen Blood Performing Organization Address [facility] one Number MAIN LAB [address] [place] [address] * LDH-LACTATE DEHYDROGENASE (02/09/2020 2:12 AM CDT) Lactate 568 (H) 100 - 210 U/L MAIN LAB Dehydrogenase Specimen Blood Performing Organization Address [facility] one Number MAIN LAB [address] [place] [address] * FIBRINOGEN (02/09/2020 2:12 AM CDT) Fibrinogen 419 (H) 200 - 400 MG/DL MAIN LAB Specimen Blood Performing Organization Address [facility] one Number MAIN LAB [address] [place] [address] * CBC AND DIFF CELLULAR THERAPEUTICS (02/09/2020 2:12 AM CDT) White Blood 76.1 (HH)Comment: Value noted, 4.5 - 11.0 K/UL KU MAIN LAB Cells value unchanged RBC 2.43 (L) 4.4 - 5.5 M/UL MAIN LAB [...] Count Manual Specimen Blood Performing Organization Address City/State/Zipcode Ph one Number MAIN LAB [address] [place] [address] * COMPREHENSIVE METABOLIC PANEL CELLULAR THERAPEUTICS (02/09/2020 [...] 5.0 G/DL KU MAIN LAB Alk Phosphatase 144 (H) 25 - 110 U/L KU MAIN LAB AST (SGOT) 35 7 - 40 U/L KU MAIN LAB CO2 23 21 - 30 MMOL/L KU MAIN LAB ALT (SGPT) 27 7 - 56 U/L KU MAIN LAB Anion Gap 1 (L) 3 - 12 MAIN LAB eGFR Non 37 (L) >60 mL/min MAIN LAB Comment: [place]ese The eGFR is not validated f or use in drug dosing adjustments. Continue to use estimated creatinine clearance per dosing reference text. Please contact the Clinical Pharmacist for questions. eGFR 45 (L) >60 mL/min MAIN LAB [place]ese Comment: The eGFR is not validated for use in drug dosing adjustments. Continue to use estimated creatinine clearance per dosing reference text. Please contact the Clinical Pharmacist for questions. Specimen Blood Performing Organization Address [facility] one Number MAIN LAB [address] [place] [address] * MAGNESIUM (02/09/2020 2:12 AM CDT) Magnesium 1.9 1.6 - 2.6 mg/dL MAIN LAB Specimen Blood Performing Organization Address [facility] one Number MAIN LAB [address] [place] [address] * URIC ACID (02/08/2020 3:42 PM CDT) Uric Acid 2.9 (L) 4.0 - 8.0 MG/DL MAIN LAB Specimen Blood Performing Organization Address [facility] one Number MAIN LAB [address] [place] [address] * PTT (APTT) (02/08/2020 3:42 PM CDT) APTT 27.7 24.0 - 36.5 SEC MAIN LAB Specimen Blood Performing Organization Address [facility] one Number MAIN LAB [address] [place] [address] * PROTIME INR (PT) (02/08/2020 3:42 PM CDT) INR 1.5 (H) 0.8 - 1.2 MAIN LAB Specimen Blood Performing Organization Address [facility] one Number MAIN LAB [address] [place] [address] * PHOSPHORUS CELLULAR THERAPEUTICS (02/08/2020 3:42 PM CDT) Phosphorus 4.5 2.0 - 4.5 MG/DL MAIN LAB Specimen Blood Performing Organization Address [facility]/State/Zipcode Ph one Number KU MAIN LAB [address] [place] [address] * FIBRINOGEN (02/08/2020 3:42 PM CDT) Pathologist [facility] Fibrinogen 419 (H) 200 - 400 MG/DL KU MAIN LAB Specimen Blood Performing Organization Address [facility] Ph one Number KU MAIN LAB [address] [place] [address] * CBC AND DIFF CELLULAR THERAPEUTICS (02/08/2020 3:42 PM CDT) Pathologist [facility] White Blood 70.8 (HH)Comment: Value noted, 4.5 - 11.0 K/UL KU MAIN LAB Cells value unchanged RBC 2.55 (L) 4.4 - 5.5 M/UL KU MAIN LAB Hemoglobin 8.1 (L) 13.5 - 16.5 GM/DL KU MAIN LAB Hematocrit 25.2 (L) 40 - 50 % KU MAIN LAB MCV 98.7 80 - 100 FL KU MAIN LAB MCH 31.8 26 - 34 PG KU MAIN LAB MCHC 32.2 32.0 - 36.0 G/DL KU MAIN LAB RDW 17.9 (H) 11 - 15 % KU MAIN LAB Platelet Count 45 (L) 150 - 400 K/UL KU MAIN LAB MPV 7.8 7 - 11 FL KU MAIN LAB Nucleated RBCs 1 K/UL KU MAIN LAB Segmented 13 (L) 41 - [...] KU MAIN LAB Morph Platelet MKD DEC KU MAIN LAB Estimate Absolute 9.20 (H) 1.8 - 7.0 K/UL KU MAIN LAB Neutrophil Count Manual Specimen Blood Performing Organization Address City/State/Zipcode Ph one Number KU MAIN LAB [address] [place] [address] * BASIC METABOLIC PANEL CELLULAR THERAPEUTICS (02/08/2020 3:42 PM CDT) Pathologist [facility] Sodium 139 137 - 147 MMOL/L KU [...] (L) >60 mL/min KU MAIN LAB Comment: [place]ese The eGFR is not validated f or use in drug dosing adjustments. Continue to use estimated creatinine clearance per dosing reference text. Please contact the Clinical Pharmacist for questions. eGFR 44 (L) >60 mL/min KU MAIN LAB [place]ese Comment: The eGFR is not validated for use in drug dosing adjustments. Continue to use estimated creatinine clearance per dosing reference text. Please contact the Clinical Pharmacist for questions. Specimen Blood Performing Organization Address City/State/Zipcode Ph one Number KU MAIN LAB [address] [place] [address] * TRANSFUSE APHERESIS PLATELETS (02/08/2020 8:48 AM [...] on 02/08/2020 8:17 AM. Performing Organization Address [facility] one Number KU RAD RESULTS * MAGNESIUM (02/08/2020 6:20 AM CDT) Magnesium 1.9 1.6 - 2.6 mg/dL MAIN LAB Specimen Performing Organization Address [facility] one Number MAIN LAB [address] [place] [address] * TROPONIN-I (02/08/2020 6:20 AM CDT) Troponin-I 0.64 (H) 0.0 - 0.05 NG/ML MAIN LAB Specimen Blood Performing Organization [facility] one Number MAIN LAB [address] [place] [address] * PREPARE APHERESIS PLATELETS (02/08/2020 3:41 AM CDT) Units Ordered 1 MAIN LAB Unit Number [id number] MAIN LAB Blood Component APHERESIS PLT,LEUKO KU MAIN LAB Type REDUCED,IRRADIATED,2ND CONT . Unit Division 0 MAIN LAB Status OF Unit TRANSFUSED MAIN LAB Transfusion OK TO TRANSFUSE MAIN LAB Status Specimen Other (Specify) Performing Organization [facility] one Number MAIN LAB [address] [place] [address] * TROPONIN-I (02/08/2020 2:34 AM CDT) Troponin-I 0.74 (H) 0.0 - 0.05 NG/ML MAIN LAB Specimen Performing Organization [facility] one Number MAIN LAB [address] [place] [address] * URIC ACID (02/08/2020 2:34 AM CDT) Uric Acid 3.3 (L) 4.0 - 8.0 MG/DL MAIN LAB Specimen Blood Performing Organization [facility] one Number MAIN LAB [address] [place] [address] * PTT (APTT) (02/08/2020 2:34 AM CDT) APTT 27.4 24.0 - 36.5 SEC MAIN LAB Specimen Blood Performing Organization Address [facility] one Number MAIN LAB [address] [place] [address] * PROTIME INR (PT) (02/08/2020 2:34 AM CDT) INR 1.5 (H) 0.8 - 1.2 MAIN LAB Specimen Blood Performing Organization Address [facility] one Number MAIN LAB [address] [place] [id number] * PHOSPHORUS CELLULAR THERAPEUTICS (02/08/2020 2:34 AM CDT) Phosphorus 5.2 (H) 2.0 - 4.5 MG/DL MAIN LAB Specimen Blood Performing Organization Address [facility] one Number MAIN LAB [address] [place] [address] * LDH-LACTATE DEHYDROGENASE (02/08/2020 2:34 AM CDT) Lactate 556 (H) 100 - 210 U/L MAIN LAB Dehydrogenase Specimen Blood Performing Organization Address [facility] one Number MAIN LAB [address] [place] [address] * FIBRINOGEN (02/08/2020 2:34 AM CDT) Fibrinogen 384 200 - 400 MG/DL MAIN LAB Specimen Blood Performing Organization Address [facility] one Number MAIN LAB [address] [place] [address] * CBC AND DIFF CELLULAR THERAPEUTICS (02/08/2020 2:34 AM CDT) White Blood 68.2 (HH)Comment: Value noted, 4.5 - 11.0 K/UL KU MAIN LAB Cells value unchanged RBC 2.57 (L) 4.4 - 5.5 M/UL MAIN LAB Hemoglobin 8.3 (L) 13.5 - [...] Count Manual Specimen Blood Performing Organization Address City/State/Zipcode Ph one Number KU MAIN LAB [address] [place] [address] * COMPREHENSIVE METABOLIC PANEL CELLULAR THERAPEUTICS (02/08/2020 2:34 AM CDT) Sodium 141 137 - 147 MMOL/L KU [...] LAB Albumin 3.5 3.5 - 5.0 G/DL KU MAIN LAB Alk Phosphatase 129 (H) 25 - 110 U/L KU MAIN LAB AST (SGOT) 37 7 - 40 U/L KU MAIN LAB CO2 22 21 - 30 MMOL/L KU MAIN LAB ALT (SGPT) 26 7 - 56 U/L KU MAIN LAB Anion Gap 9 3 - 12 KU MAIN LAB eGFR Non 37 (L) >60 mL/min KU MAIN LAB Comment: [place]ese The eGFR is not validated f or use in drug dosing adjustments. Continue to use estimated creatinine clearance per dosing reference text. Please contact the Clinical Pharmacist for questions. eGFR 45 (L) >60 mL/min KU MAIN LAB [place]ese Comment: The eGFR is not validated for use in drug dosing adjustments. Continue to use estimated creatinine clearance per dosing reference text. Please contact the Clinical Pharmacist for questions. Specimen Blood Performing Organization Address [facility] one Number MAIN LAB [address] [place] [address] * TRANSFUSE RBC'S (02/08/2020 2:14 AM CDT) Specimen Blood * TRANSFUSE RBC'S (02/08/2020 2:14 AM CDT) Specimen Blood * BNP (B-TYPE NATRIURETIC PEPTI) (02/08/2020 1:00 AM CDT) B Type 523.0 (H) 0 - 100 PG/ML KU MAIN LAB Natriuretic Peptide Specimen Blood Performing Organization Address [facility] one Number KU MAIN LAB [address] [place] [address] * TROPONIN-I (02/08/2020 1:00 AM CDT) Troponin-I 0.69 (H) 0.0 - 0.05 NG/ML KU MAIN LAB Specimen Blood Performing Organization Address [facility] one Number KU MAIN LAB [address] [place] [address] * LIPASE (02/08/2020 1:00 AM CDT) Lipase 30 11 - 82 U/L KU MAIN LAB Specimen Blood Performing Organization Address [facility] one Number KU MAIN LAB [address] [place] [address] * LIVER FUNCTION PANEL (02/08/2020 1:00 AM CDT) Total Bilirubin 1.3 (H) 0.3 - 1.2 MG/DL KU MAIN LAB Bilirubin, 0.5 (H) <0.4 MG/DL KU MAIN LAB Direct Albumin 3.5 3.5 - 5.0 G/DL KU MAIN LAB Alk Phosphatase 132 (H) 25 - 110 U/L KU MAIN LAB AST (SGOT) 36 7 - 40 U/L MAIN LAB ALT (SGPT) 26 7 - 56 U/L MAIN LAB Total Protein 6.1 6.0 - 8.0 G/DL KU MAIN LAB Specimen Blood Performing Organization [facility] one Number MAIN LAB [address] [place] [address] * LACTIC ACID(LACTATE) (02/08/2020 1:00 AM CDT) Lactic Acid 0.9 0.5 - 2.0 MMOL/L MAIN LAB Specimen Blood Performing Organization Address [facility] one Number MAIN LAB [address] [place] [address] * URIC ACID (02/07/2020 4:39 PM CDT) Uric Acid 3.9 (L) 4.0 - 8.0 MG/DL MAIN LAB Specimen Blood Performing Organization [facility] one Number MAIN LAB [address] [place] [address] * PTT (APTT) (02/07/2020 4:39 PM CDT) APTT 31.2 24.0 - 36.5 SEC MAIN LAB Specimen Blood Performing Organization [facility] one Number MAIN LAB [address] [place] [address] * PROTIME INR (PT) (02/07/2020 4:39 PM CDT) INR 1.5 (H) 0.8 - 1.2 MAIN LAB Specimen Blood Performing Organization [facility] one Number MAIN LAB [address] [place] [address] * PHOSPHORUS CELLULAR THERAPEUTICS (02/07/2020 4:39 PM CDT) Phosphorus 4.9 (H) 2.0 - 4.5 MG/DL MAIN LAB Specimen Blood Performing Organization [facility] one Number MAIN LAB [address] [place] [address] * FIBRINOGEN (02/07/2020 4:39 PM CDT) Fibrinogen 308 200 - 400 MG/DL MAIN LAB Specimen Blood Performing Organization Address [facility] one Number KU MAIN LAB [address] [place] [address] * CBC AND DIFF CELLULAR THERAPEUTICS (02/07/2020 4:39 PM CDT) White Blood 64.0 (HH)Comment: Value noted, 4.5 [...] MKD DEC KU MAIN LAB Estimate Absolute 6.40 1.8 - 7.0 K/UL KU MAIN LAB Neutrophil Count Manual Specimen Blood Performing Organization Address City/[facility]/Zipcode Ph one Number KU MAIN LAB [address] [place] [address] * BASIC METABOLIC PANEL CELLULAR THERAPEUTICS (02/07/2020 4:39 PM CDT) Pathologist [facility] Sodium 141 137 - 147 MMOL/L KU [...] (L) >60 mL/min KU MAIN LAB Comment: [place] The eGFR is not validated f or use in drug dosing adjustments. Continue to use estimated creatinine clearance per dosing reference text. Please contact the Clinical Pharmacist for questions. eGFR 42 (L) >60 mL/min KU MAIN LAB [place] Comment: The eGFR is not validated for use in drug dosing adjustments. Continue to use estimated creatinine clearance per dosing reference text. Please contact the Clinical Pharmacist for questions. Specimen Blood Performing Organization Address City/[facility]/Zipcode Ph one Number MAIN LAB [address] [place] [address] * URIC ACID (02/07/2020 7:00 AM CDT) Uric Acid 5.1 4.0 - 8.0 MG/DL KU MAIN LAB Specimen Blood Performing Organization Address [facility] one Number MAIN LAB [address] [place] [address] * COMPREHENSIVE METABOLIC PANEL CELLULAR THERAPEUTICS (02/07/2020 [...] LAB Anion Gap 11 3 - 12 KU MAIN LAB eGFR Non 44 (L) >60 mL/min MAIN LAB Comment: [place] The eGFR is not validated f or use in drug dosing adjustments. Continue to use estimated creatinine clearance per dosing reference text. Please contact the Clinical Pharmacist for questions. eGFR 53 (L) >60 mL/min MAIN LAB [place] Comment: The eGFR is not validated for use in drug dosing adjustments. Continue to use estimated creatinine clearance per dosing reference text. Please contact the Clinical Pharmacist for questions. Specimen Performing Organization Address [facility] one Number MAIN LAB [address] [place] [address] * LDH-LACTATE DEHYDROGENASE (02/07/2020 6:00 AM CDT) Lactate 468 (H) 100 - 210 U/L MAIN LAB Dehydrogenase Specimen Blood Performing Organization Address [facility] one Number MAIN LAB [address] [place] [address] * PHOSPHORUS CELLULAR THERAPEUTICS (02/07/2020 6:00 AM CDT) Phosphorus 5.5 (H) 2.0 - 4.5 MG/DL MAIN LAB Specimen Blood Performing Organization Address [facility] one Number MAIN LAB [address] [place] [address] * URIC ACID (02/07/2020 6:00 AM CDT) Uric Acid 4.0 4.0 - 8.0 MG/DL MAIN LAB Specimen Blood Performing Organization Address [facility] one Number MAIN LAB [address] [place] [address] * PTT (APTT) (02/07/2020 6:00 AM CDT) APTT 32.0 24.0 - 36.5 SEC MAIN LAB Specimen Blood Performing Organization Address [facility] one Number MAIN LAB [address] [place] [address] * PROTIME INR (PT) (02/07/2020 6:00 AM CDT) INR 1.5 (H) 0.8 - 1.2 MAIN LAB Specimen Blood Performing Organization Address [facility] one Number MAIN LAB [address] [place] [address] * FIBRINOGEN (02/07/2020 6:00 AM CDT) Pathologist [facility] Fibrinogen 316 200 - 400 MG/DL KU MAIN LAB Specimen Blood Performing Organization Address City/[facility] one Number KU MAIN LAB [address] [place] [id number] * CBC AND DIFF CELLULAR THERAPEUTICS (02/07/2020 6:00 AM CDT) Pathologist [facility] White Blood 65.0 (HH)Comment: Value noted, 4.5 - 11.0 K/UL KU MAIN LAB Cells value unchanged RBC 2.00 (L) 4.4 - 5.5 M/UL KU MAIN LAB Hemoglobin 6.7 (L) 13.5 - 16.5 GM/DL KU MAIN LAB Hematocrit 20.9 (L) 40 - 50 % KU MAIN LAB MCV 104.5 (H) 80 - 100 FL KU MAIN LAB MCH 33.5 26 - 34 PG KU MAIN LAB MCHC 32.0 32.0 - 36.0 G/DL KU MAIN LAB RDW 15.9 (H) 11 - 15 % KU MAIN LAB Platelet Count 43 (L) 150 - 400 K/UL KU MAIN LAB MPV 8.2 7 - 11 FL KU MAIN LAB Nucleated RBCs 3 K/UL KU MAIN LAB Segmented 19 (L) 41 - 77 % KU MAIN LAB Neutrophils Bands 2 0 - 10 % KU MAIN LAB Lymphocytes 16 (L) 24 - 44 % KU MAIN LAB Monocytes 28 (H) 4 - 12 % KU MAIN LAB Eosinophil 3 0 - 5 % KU MAIN LAB Myelocyte 1 % KU MAIN LAB Other Cells 31Comment: OTHERS ARE BLASTS % K U MAIN LAB ANISO PRESENT KU MAIN LAB POLY PRESENT [employer] MAIN LAB MACRO PRESENT KU MAIN LAB Platelet MKD DEC KU MAIN LAB Estimate Absolute 13.65 (H) 1.8 - 7.0 K/UL KU MAIN LAB Neutrophil Count Manual Specimen Blood Performing Organization Address City/State/Zipcode Ph one Number KU MAIN LAB [address] [place] [address] * TRANSFUSE APHERESIS PLATELETS (02/07/2020 2:36 AM CDT) * TRANSFUSE APHERESIS PLATELETS (02/07/2020 2:36 AM CDT) * BLOOD TYPE CONFIRMATION - ORDER ONLY IF REQUESTED BY LAB (02/06/2020 8:42 PM CDT) ABO/RH(D) B POS [facility] Specimen Blood Performing Organization Address City/State/Zipcode Ph one Number [facility] [address] [place] [address] * CHROMOSOMES BLD HEMATOLOGIC (02/06/2020 8:03 PM CDT) Pathologist [facility] Chromosomes Cytogenetics Report Available [facility] Blood in Epic Hematologic Specimen Narrative Performed At This result has an attachment that is n ot available. Performing Organization Address City/State/[facility] one Number [facility] [address] [place] [address] * FLOW CYTOMETRY (02/06/2020 8:03 PM CDT) Pathologist [facility] PATHOLOGY [facility] [email or web address] Damian Johnson MD, Director of Flow Cytometry Laboratory Department of Pathology and Laboratory Medicine [address] [place] [address] Surgical Pathology Office: [phone] FLOW CYTOMETRY REPORT NAME: JHONY CHI SURG PATH #: [id number] MR #: [id number] SPECIMEN CLASS: LC BILLING #: [id number] ALT ID #: LOCATION: 42 DATE OF [...] 0; CD20 = 0; cyCD22 = 1; xcCC29c = 0 [place] = 0; Lambda = 0; [place]:Lambda ratio = n/a T Cell Associated Markers [...] and its performance characteristics determined by the [facility] Flow Cytometry Laboratory. It has not been cleared or approved by the U.S. Food and Drug Administration (FDA). The FDA has determined that such clearance or approval is not necessary. Specimen Performing Organization Address [facility] [facility] [place] one Number [facility] [address] [place] [address] * PERIPHERAL SMEAR (02/06/2020 8:03 PM CDT) Peripheral INCREASED BLASTS (54%). 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 Pathologist INTERPRETED BY [facility] N LAB Signature M.D. By the PATH SIGNATURE ABOVE, I attest that I have personally formulated the final interpretation expressed in this report and that the above diagnosis is based upon my examination of the slides and/or other material indicated in this report. Specimen Performing Organization Address [facility] Ph one Number [facility] [address] [place] [address] * CBC AND DIFF (02/06/2020 8:03 PM CDT) White Blood 82.3 (HH) 4.5 - 11.0 K/UL [facility] Cells Comment: CRITICAL VALUE CALLED TO AND READ BACK BY/TIME/TECH CHINA CASTILLO at 02/06/2020 21:21:38 by 983 RBC 2.35 (L) 4.4 - 5.5 M/UL [facility] Hemoglobin 7.7 (L) 13.5 - 16.5 GM/DL [facility] Hematocrit 24.5 (L) 40 - 50 [...] FL MAIN LAB Nucleated RBCs 4 K/UL [facility] MAIN [facility] Segmented 11 (L) 41 - 77 % [facility] MAIN LAB Neutrophils Bands 1 0 - 10 % [facility] MAIN LAB Lymphocytes 18 (L) 24 - 44 % MAIN LAB Monocytes 27 (H) 4 - 12 % MAIN LAB Eosinophil 1 0 - 5 % [facility] MAIN LAB Myelocyte 1 % MAIN LAB Other Cells 41 % MAIN LAB Comment: OTHERS ARE BLASTS CRITICAL VALUE CALLED TO AND READ BACK BY/TIME/TECH Dulce ACUNA/1346/64 ANISO PRESENT MAIN LAB POLY PRESENT MAIN LAB Platelet MKD DEC MAIN LAB Estimate Absolute 9.87 (H) 1.8 - 7.0 K/UL MAIN LAB Neutrophil Count Manual Specimen Performing Organization Address City/State/Zipcode Ph one Number MAIN LAB [address] [place] [address] * LEUKEMIA-LYMPHOMA PANEL BLOOD (02/06/2020 8:03 PM CDT) Leuk/Lymph SEE PATHOLOGY REPORT MAIN LAB Interpretation Specimen/LLM BLOOD MAIN LAB Specimen Performing Organization Address [facility] Number [facility] LAB [address] [place] [address] * TYPE & CROSSMATCH (02/06/2020 8:03 PM CDT) Units Ordered 2 MAIN LAB Crossmatch 02/09/2020 MAIN LAB Expires Record Check 2ND TYPE REQUIRED MAIN LAB ABO/RH(D) B POS MAIN LAB Antibody Screen NEG MAIN LAB Electronic YES MAIN LAB Crossmatch Unit Number [id number] MAIN LAB Blood Component RBC,ADSOL,LEUKO [facility] MAIN LAB Type REDUCED,IRRADIATED Unit Division 0 MAIN LAB Status OF Unit TRANSFUSED KU MAIN LAB Transfusion OK TO TRANSFUSE KU MAIN LAB Status Crossmatch COMPATIBLE,ELECTRONIC MAIN LAB Result Unit Number [id number] MAIN LAB Blood Component RBC,ADSOL,LEUKO [facility] MAIN LAB Type REDUCED,IRRADIATED Unit Division 0 KU MAIN LAB Status OF Unit TRANSFUSED KU MAIN LAB Transfusion OK TO TRANSFUSE KU MAIN LAB Status Crossmatch COMPATIBLE,ELECTRONIC MAIN LAB Result Specimen Blood Performing Organization Address [facility] [address] [place] [address] * CHROMOSOMES FISH DNA PROBE-BLOOD (02/06/2020 8:03 PM CDT) Chromosomes Cytogenetics Report Available MAIN LAB Fish DNA in Epic Probe-Blood Specimen Blood Narrative Performed At This result has an attachment that is n ot available. Performing Organization Address City/State/[facility] Ph one Number MAIN LAB [address] [place] [address] * LDH-LACTATE DEHYDROGENASE (02/06/2020 8:03 PM CDT) Lactate 569 (H) 100 - 210 U/L MAIN LAB Dehydrogenase Specimen Blood Performing Organization Address [facility] Ph one Number MAIN LAB [address] [place] [address] * PHOSPHORUS CELLULAR THERAPEUTICS (02/06/2020 8:03 PM CDT) Phosphorus 4.8 (H) 2.0 - 4.5 MG/DL MAIN LAB Specimen Blood Performing Organization Address [facility] Ph one Number MAIN LAB [address] [place] [address] * URIC ACID (02/06/2020 8:03 PM CDT) Uric Acid 9.6 (H) 4.0 - 8.0 MG/DL MAIN LAB Specimen Blood Performing Organization Address [facility] Ph one Number MAIN LAB [address] [place] [address] * PTT (APTT) (02/06/2020 8:03 PM CDT) APTT 33.1 24.0 - 36.5 SEC MAIN LAB Specimen Blood Performing Organization Address [facility] Ph one Number MAIN LAB [address] [place] [address] * PROTIME INR (PT) (02/06/2020 8:03 PM CDT) INR 1.5 (H) 0.8 - 1.2 MAIN LAB Specimen Blood Performing Organization Address [facility] Ph one Number MAIN LAB [address] [place] [address] * FIBRINOGEN (02/06/2020 8:03 PM CDT) [facility] Fibrinogen 354 200 - 400 MG/DL KU MAIN LAB Specimen Blood Performing Organization Address [facility] one Number MAIN LAB [address] [place] [address] * BASIC METABOLIC PANEL CELLULAR THERAPEUTICS (02/06/2020 8:03 PM CDT) [facility] Sodium 139 137 - 147 MMOL/L KU MAIN LAB Potassium 3.5 3.5 - 5.1 MMOL/L KU MAIN LAB Chloride 106 98 - 110 MMOL/L KU MAIN LAB CO2 22 21 - 30 MMOL/L KU MAIN LAB Anion Gap 11 3 - 12 KU MAIN LAB Glucose 114 (H) 70 - 100 MG/DL KU MAIN LAB Blood Urea 20 7 - 25 MG/DL MAIN LAB Nitrogen Creatinine 1.63 (H) 0.4 - 1.24 MG/DL KU MAIN LAB Calcium 8.7 8.5 - 10.6 MG/DL MAIN LAB eGFR Non 41 (L) >60 mL/min MAIN LAB Comment: Sudanese The eGFR is not validated f or use in drug dosing adjustments. Continue to use estimated creatinine clearance per dosing reference text. Please contact the Clinical Pharmacist for questions. eGFR 50 (L) >60 mL/min MAIN LAB Sudanese Comment: The eGFR is not validated for use in drug dosing adjustments. Continue to use estimated creatinine clearance per dosing reference text. Please contact the Clinical Pharmacist for questions. Specimen Blood Performing Organization Address [facility] Ph one Number MAIN LAB [address] [place] [address] * PREPARE APHERESIS PLATELETS (02/06/2020 7:06 PM CDT) [facility] Units Ordered 1 MAIN LAB Unit Number [id number] MAIN LAB Blood Component APHERESIS PLT,LEUKO MAIN LAB Type REDUCED,1ST CONT. Unit Division 0 KU MAIN LAB Status OF Unit REL FROM ALLOC MAIN LAB Transfusion OK TO TRANSFUSE MAIN LAB Status Unit Number [id number] MAIN LAB Blood Component APHERESIS PLT,LEUKO MAIN LAB Type REDUCED,IRRADIATED,2ND CONT . Unit Division 0 MAIN LAB Status OF Unit TRANSFUSED KU MAIN LAB Transfusion OK TO TRANSFUSE MAIN LAB Status Specimen Other (Specify) Performing Organization Address City/[facility]/Zipcode Ph one Number MAIN LAB [address] [place] [address] * VRE SCREEN (02/06/2020 7:00 PM CDT) Battery Name VRE SCREEN KU MAIN LAB Specimen PERIRECTAL SWAB MAIN LAB Description Special NONE MAIN LAB Requests Culture NO VRE ISOLATED [facility]U MAIN LAB Report Status FINAL MAIN LAB 02/08/2020 Specimen Perirectal Swab Performing Organization Address City/[facility]/Zipcode Ph one Number MAIN LAB [address] [place] [address] * TELEMETRY STRIPS-SCAN (02/06/2020 12:00 AM CDT) [...] 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) Pneumonia of both lungs due to infectio us organism, unspecified part of lung documented in this encounter Administered Medications Action Date Dose Rate Site Medication Order MAR Action 02/14/2020 1:20 AM CDT 650 mg acetaminophen (TYLENOL) tablet 650 mg Given 650 mg, Oral, EVERY 6 HOURS PRN, Starting Sun02/06/20 at 1820, Until 4/6/20 at 1600, Other..., temp > or equal to 38.1, Notify provider of fever prior to administering if first fever since hospitalization or if > 24 hours since last fever., 650 mg Given 02/10/2020 9:19 PM CDT 650 mg Given 02/09/2020 4:46 PM CDT 02/23/2020 9:00 AM CDT 800 mg [...] by RT, will be per RT policy., 02/23/2020 9:00 AM CDT 300 mg allopurinoL (ZYLOPRIM) tablet 300 mg Given 300 mg, Oral, DAILY, First dose (after last reorder) on Sun02/15/20 at 0900, Until Discontinued 300 mg Given 02/22/2020 8:11 AM CDT 300 mg Given 02/21/2020 8:18 AM CDT 02/09/2020 5:11 AM CDT 30 mL alum/mag hydroxide/simeth (MYLANTA) oral Given suspension 30 mL 30 mL, Oral, EVERY 6 HOURS PRN, Starting Sun02/06/20 at 1820, Until Sun02/23/20 at 1600, Indigestion/Heartburn 02/23/2020 9:00 AM CDT [...] mg, Oral, THREE TIMES DAILY PRN, Starting 02/13/20 at 1243, Until 02/23/20 at 1600, Cough 100 mg Given 02/22/2020 8:18 AM CDT 100 mg Given 02/21/2020 10:08 AM CDT dextran 70/hypromellose (GENTEAL TEARS) ophthalmic solution 1-2 drop 1-2 drop, Both Eyes, EVERY 8 HOURS PRN , Starting 02/21/20 at 0144, Until 02/23/20 at 1600, Dry Eyes 02/22/2020 5:00 PM CDT 200 mg guaiFENesin (ROBITUSSIN) oral solution Given 200 mg 200 mg, Oral, EVERY 6 HOURS PRN, Starting 02/14/20 at 2309, Until 02/23/20 at 1600, Cough, Congestion 200 mg Given 02/22/2020 8:18 AM CDT 200 mg Given 02/21/2020 10:08 AM CDT 02/23/2020 9:00 AM CDT 750 mg levoFLOXacin [...] 750 mg Given 02/22/2020 8:11 AM CDT 02/21/2020 10:04 PM CDT 10 mg melatonin tablet 5-20 mg Given 5-20 mg, Oral, AT BEDTIME PRN, Starting Estefani 02/19/20 at 2036, Until 02/23/20 at 1600, Insomnia 10 mg Given 02/20/2020 9:31 PM CDT 5 mg Given 02/19/2020 8:56 PM CDT 02/23/2020 9:00 AM CDT 12.5 mg metoprolol tartrate (LOPRESSOR) tablet Given 12.5 mg 12.5 mg, Oral, TWICE DAILY, First dose on 02/07/20 at 2100, Until Discontinued, Hold for heart rate < 60 bpm, systolic BP < 90 or diastolic BP < 40, 12.5 mg Given 02/22/2020 8:11 PM CDT 12.5 mg Given 02/22/2020 8:12 AM CDT 02/21/2020 5:55 AM CDT 2 sprays oxymetazoline [...] 2 sprays Given 02/07/2020 11:56 PM CDT 02/17/2020 6:25 AM CDT 17 g polyethylene glycol 3350 (MIRALAX) Given packet 17 g 17 g (1 packet), Oral, DAILY PRN, Starting 02/09/20 at 1047, Until 02/23/20 at 1600, Constipation PO, 8.5 GRAMS = 0.5 PACKET 17 GRAMS = 1 PACKET 34 GRAMS = 2 PACKETS, 17 g Given 02/12/2020 6:35 AM CDT 17 g Given 02/10/2020 11:35 AM CDT 02/23/2020 9:00 AM CDT 300 [...] mL, Administer Bag over 60 Minutes, NEEDED (EVENT SPECIALIST FRO M RX), Starting Sun02/06/20 at 1820, Unti l [...] 40 Given mEq 40 mEq, Oral, NEEDED (EVENT SPECIALIST FROM RX), Starting Sun02/06/20 at 1820, Unti [...] 40 mEq Given 02/09/2020 9:11 AM CDT 02/20/2020 6:50 PM CDT 10 mg prochlorperazine [...] mg, Oral, EVERY 6 HOURS PRN, Starting 02/06/20 at 1820, Until 02/23/20 at 1600, Nausea/Vomiting PO 10 mg Given 02/21/2020 7:22 PM CDT 10 mg Given 02/21/2020 12:38 PM CDT 02/12/2020 2:05 PM CDT 2 tablets senna/docusate (SENOKOT-S) tablet 1-2 Given tablet 1-2 tablet, Oral, DAILY PRN, Starting Sun02/06/20 at 1820, Until Sun02/23/20 a t 1600, Constipation PO, Hold for loose stools., 02/13/2020 4:16 AM CDT 80 mg simethicone (MYLICON) chew tablet 80 mg Given 80 mg, Oral, EVERY 6 HOURS PRN, Starting 02/07/20 at 2335, Until Sun02/23/20 at 1600, Flatulence 80 mg Given 02/11/2020 11:33 AM CDT 80 mg Given 02/11/2020 2:36 AM CDT 02/20/2020 6:42 AM CDT sodium chloride 0.9 % TKO infusion Given Intravenous, NEEDED, Starting Sun02/06/20 at 1820, Until 02/23/20 at 1600, Other..., Run as primary TKO with IV piggyback medications Given 02/19/2020 5:35 AM CDT Given 02/19/2020 5:34 AM CDT 02/10/2020 10:21 PM CDT sodium chloride 0.9% irrigation bottle Given Swish & Spit, NEEDED, Starting Sun02/06/20 at 1820, Until Sun02/23/20 at 1600, Other..., oral mucositis 02/22/2020 5:02 [...] BEDTIME PRN, Starting Sun02/20/20 at 0000, Until Sun02/23/20 at 1600, Insomnia documented in this encounter
--- OUTSIDE RECORDS SUMMARY | 2020-03-08 14:45 | XMS REPORT | Encounter Summary ---
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) acute leukemia Encounter Details Care Team Description Date Type Department Ze Farrar MD [address] [place], [place] [id number] 02/18/2020 Anesthesia [facility] [place] [address] [address] Anesthesia Record Responsible Anesthesiologist Anesthesia Start Time Anesthesi a Stop Time Procedure Name Ze Farrar MD 02/18/20 1024 02/18/20 1124 BRONCHOSCOPY WITH BRONCHIAL ALVEOLAR LAVAGE - FLEXIBLE (Bilateral Bronchus) Date Time Event Comment 1016 AN Equip Check 2019 1018 1023 Out of Pre Procedure 1024 Anes Start 1028 An Start Data 1028 In Room 1040 An Induction The patient was ree valuated immediately before moderate or deep sedation use and before anesthesia induction. 1041 An Intubation 1046 Proc Start 1046 Anesthesia Ready 1059 An Extubation 1120 an stop data 1124 Handoff to RN I completed my SBAR handoff to the receiving nurse. 1124 An Stop Meds Name Total fentaNYL PF (SUBLIMAZE) injection 75 mcg lidocaine (2%) 200 mg/10mL Injection 80 mg syringe propofol (DIPRIVAN) 200 mg/ 20 mL 130 mg injection (VIAL) succinylcholine (ANECTINE) injection 120 mg (VIAL) dextran 70/hypromellose (GENTEAL TEARS; 2 drop BION TEARS) ophthalmic solution propofol (DIPRIVAN) infusion 71.3 mg sodium chloride 0.9 % infusion 300 mL * Name O2 N2O Inspired N2O * No blood administrations on file. Removal Type Details Placement PICC 02/06/20; 2316; Med/Surg (4212); 02/05 2316 by Gaby Silva; Correct Lucio baker RN Lumen Patient, Correct Procedure, Correct Patient Position, Correct Equipment / Implants Available, Correct Side / Site Marked "YES", Marking Waived, Not Side Specific; Hand Hygiene, Cap , Mask, Sterile Gown, Full Body Sterile Drape, Sterile Gloves, Eye Protection; Chlorhexadine (CHG); Basilic, Right; 4 FR; Microintroducer Technique, Ultrasound, Lidocaine Prep; (33%); 1; Securement device, Chlorhexadine (CHG) impregnated sponge, Sterile occlusive dressing; Other (Comment) (DSVC per 3CG with green nima) 02/18/20 1059 by Ramírez Beltran CRNA ETT 02/18/20; 1041; Mask ventilation not 0 02/18/20 1041 by Devin, attempted (0); Rapid sequence, StyletRamírez CRNA Video laryngoscopy; Single-Lumen, Cuffed; 7.5mm; GlideScope; 3; Oral; 1-Full view of the glottis; 1 insertion attempt; Auscultation, ETCO2 Detector; 23 centimeters; Atraumatic placement; dentition unchanged; 02/18/20; 1059 documented in this encounter Social History Date Tobacco Use Types Packs/Day Years Used Quit: 02/08/1987 Former Smoker Cigarettes 3 30 Smokeless Tobacco: Never Used Drinks/Week oz/Week Comments Alcohol Use Not Currently Sex Assigned at Date Recorded Male 02/09/2020 3:55 PM CDT Industry Job Start Date Occupation Not on file Not on file Not on file Travel End Travel History Travel Start No recent travel history available. documented as of this encounter Functional Status Date of Assessment Functional Status Response 02/09/2020 Does the patient have a hearing impairment: No documented as of this encounter OR Notes * Anesthesia Postprocedure Evaluation - Betty Hines MD - 02/18/2020 12:02 PM CDT Post-Anesthesia Evaluation Name: Jhony Chi : 1945 Age: 75 y.o. S ex: male Procedure Date: 02/18/2020 Procedure(s) (LRB): BRONCHOSCOPY WITH BRONCHIAL ALVEOLAR LAVAGE - FLEXIBLE (Bilateral) Surgeon: Surgeon(s): Parminder Gomez MD Post-Anesthesia Vitals BP: 114/60 (02/17 1145) Temp: 36 C (96.8 F) (02/17 1145) Pulse: 90 (02/17 1145) Respirations: 23 PER MINUTE (02/17 1145) SpO2: 99 % (02/17 1145) SpO2 Pulse: 90 (02/17 1145) Vitals Value Taken Time BP 114/60 02/18/2020 11:45 AM Temp 36 C (96.8 F) 02/18/2020 11:45 AM Pulse 90 02/18/2020 11:45 AM Respirations 23 PER MINUTE 02/18/2020 11:45 AM SpO2 99 % 02/18/2020 11:45 AM Post Anesthesia Evaluation Note Evaluation location: Pre/Post Patient participation: recovered; patient participated in evaluation Level of consciousness: alert Pain management: adequate Hydration: normovolemia Temperature: 36.0C - 38.4C Airway patency: adequate Perioperative Events Post-op nausea and vomiting: no PONV Postoperative Status Cardiovascular status: hemodynamically stable Respiratory status: spontaneous ventilation Follow-up needed: none Perioperative Events Perioperative Event: No Emergency Case Activation: No * Anesthesia Preprocedure Evaluation - Ze Farrar MD - 02/18/2020 10:14 AM CDT Anesthesia Pre-Procedure Evaluation Name: Jhony Chi : 1945 Age: 75 y.o. S ex: male Procedure Info: Procedure Information Date/Time: 02/18/20 1100 Procedure: BRONCHOSCOPY WITH BRONCHIAL ALVEOLAR LAVAGE - FLEXIBLE (Bilateral B ronchus) - CASE LENGTH 20 MINUTES Location: MAIN OR 18 / Main OR/Periop Surgeon: Parminder Gomez MD Physical Assessment Vital Signs (last filed in past 24 hours): BP: 159/71 (02/17 947) Temp: 36.6 C (97.8 F) (02/17 947) Pulse: 82 (02/17 947) Respirations: 18 PER MINUTE (02/17 947) SpO2: 95 % (02/17 947) Weight: 115 kg (253 lb 8.5 oz) (02/17 209) Patient History No Known Allergies Current Medications Medication Directions adalimumab (CF) (HUMIRA PEN) 40 mg/0.4 mL injection PEN kit Inject 40 mg under t he skin every 14 days. atorvastatin (LIPITOR) 80 mg tablet Take 40 mg by mouth at bedtime daily. clobetasoL (TEMOVATE) 0.05 % topical solution Apply topically to affected area twice daily. fexofenadine (LARISSA) 180 mg tablet Take 180 mg by mouth daily. ketoconazole (NIZORAL) 2 % topical shampoo Apply topically to affected area twi ce weekly. Apply topically to affected area of damp skin, lather, leave on 5 min utes, and rinse. Repeat lisinopriL (ZESTRIL) 20 mg tablet Take 10 mg by mouth every morning. metoprolol XL (TOPROL XL) 50 mg extended release tablet Take 25 mg by mouth binu y. prazosin (MINIPRESS) 2 mg capsule Take 2 mg by mouth at bedtime daily. Review of Systems/Medical History PONV Screening: Non-smoker No history of anesthetic complications No family history of anesthetic complications Airway - negative Pulmonary Pneumonia Shortness of breath Cardiovascular Recent diagnostic studies: echocardiogram Echo 01/2020 1. There is limited endocardial definition. Contrast is used to enhance endocard ial definition. A septal wall motion abnormality is noted consistent with prio r cardiac surgery. No other regional wall motion abnormalities are seen. Overa ll LV systolic function appears normal. The estimated left ventricular ejectio n fraction is 60%. 2. The right ventricle and the atria are not visualized well. 3. Cardiac valve structures are not visualized well. The aortic valve is not vi sualized well but appears sclerotic. The Doppler exam suggests mild aortic valv e stenosis. 4. No pericardial effusion is seen. Exercise tolerance: <4 METS Beta Marissa therapy: Yes Beta blockers within 24 hours: Yes Hypertension, well controlled Coronary artery disease Coronary artery bypass graft Dysrhythmias (PAF, currently NSR) Hyperlipidemia GI/Hepatic/Renal Renal disease: CRI Neuro/Psych - negative Endocrine/Other Anemia Blood dyscrasia (thrombocytopenia) Malignancy (AML) Obesity Constitution - negative Physical Exam Airway Findings Mallampati: II TM distance: >3 FB Neck ROM: limited Mouth opening: good Airway patency: adequate Dental Findings: Partials Cardiovascular Findings: Rhythm: regular Rate: normal Pulmonary Findings: Decreased breath sounds. Abdominal Findings: Obese Neurological Findings: Alert and oriented x 3 Constitutional findings: No acute distress Diagnostic Tests Hematology: Lab Results Component Value Date HGB 7.8 02/18/2020 HCT 22.5 02/18/2020 PLTCT 18 02/18/2020 WBC 3.5 02/18/2020 ANC 0.60 02/18/2020 LYMPH 29 02/18/2020 BASOPHILS 1 02/07/2020 MCV 94.2 02/18/2020 MCH 32.5 02/18/2020 MCHC 34.5 02/18/2020 MPV 7.3 02/18/2020 RDW 15.3 02/18/2020 General Chemistry: Lab Results Component Value Date NA 138 02/18/2020 K 3.7 02/18/2020 CL 105 02/18/2020 CO2 25 02/18/2020 GAP 8 02/18/2020 BUN 25 02/18/2020 CR 1.36 02/18/2020 GLU 113 02/18/2020 CA 8.1 02/18/2020 ALBUMIN 3.1 02/18/2020 LACTIC 0.9 02/08/2020 MG 2.4 02/13/2020 TOTBILI 1.5 02/18/2020 PO4 3.5 02/18/2020 Coagulation: Lab Results Component Value Date PTT 19.7 02/12/2020 INR 1.3 02/12/2020 Anesthesia Plan ASA score: 3 Plan: general Induction method: intravenous NPO status: acceptable Informed Consent Anesthetic plan and risks discussed with patient. Use of blood products discussed with patient Blood Consent: consented Plan discussed with: anesthesiologist, surgeon/proceduralist and PEDIATRIC ALLERGIST. documented in this encounter Plan of Treatment Not on filedocumented as of this encounter Goals Goal Patient Associated Recent Progress Patient-Stat Aut hor Goal Type Problems ed? GOAL General No Alivia Limon RN Note: Stay healthy documented as of this encounter Visit Diagnoses Not on filedocumented in this encounter Administered Medications Action Date Dose Rate Site Medication Order MAR Action 02/18/2020 10:42 AM CDT 2 drops dextran 70/hypromellose (GENTEAL TEARS) Given ophthalmic solution INTRA-PROCEDURE MED, Starting Wed 0 at 1042, Until Sun02/18/20 at 1133, Anesthesia Intra-op 02/18/2020 10:30 AM CDT 75 mcg fentaNYL citrate PF (SUBLIMAZE) Given injection INTRA-PROCEDURE MED, Starting Sun 0 at 1030, Until Sun02/18/20 at 1133, Anesthesia Intra-op 02/18/2020 10:40 AM CDT 80 mg lidocaine (PF) injection Given INTRA-PROCEDURE MED, Starting Sun 0 at 1040, Until 02/18/20 at 1133, Anesthesia Intra-op 02/18/2020 10:48 AM CDT 100 mcg/kg/min 69 mL/hr propofol (DIPRIVAN) infusion Dose/Rate 20 mL, INTRA-PROCEDURE MED(CONT), Change Starting 02/18/20 at 1045, Until Sun02/18/20 at 1133, Anesthesia Intra-op 140 mcg/kg/min 96.6 mL/hr Given - New Bag 02/18/2020 10:45 AM CDT 02/18/2020 10:45 AM CDT 20 mg propofol (DIPRIVAN) injection Given INTRA-PROCEDURE MED, Starting Wed 0 at 1040, Until Sun02/18/20 at 1133, Anesthesia Intra-op 110 mg Given 02/18/2020 10:40 AM CDT 02/18/2020 10:40 AM CDT 120 mg succinylcholine (ANECTINE) injection Given Intravenous, INTRA-PROCEDURE MED, Starting 02/18/20 at 1040, Until Sun02/18/20 at 1133, Anesthesia Intra-op documented in this encounter
--- OUTSIDE RECORDS SUMMARY | 2020-03-08 14:46 | XMS REPORT | Continuity of Care Document ---
Author Organization Unknown Address Unknown Phone Unavailable Allergies Active Description Code Type Severity Reaction Onset Reported/Identified Relationship to Patient Clinical Status Yes No Known Drug Allergies [id number] Drug Allergy Unknown N/A 04/09/2013 Medications There [...] 07/20/2013 SUSU SINGLETON MD Ot 568.0 PERITONEAL HJERHOJIG-QNOJ-VL/INF 07/20/2013 SUSU SINGLETON MD Ot V55.3 ATTEN TO COLOSTOMY 07/24/2013 WALTER BOB SET UP AND LAY OUT INSPECTOR Ot 789.30 ABDOMINAL/PELVIC SWELLING,MASS/LUMP UNSP 07/24/2013 WALTER [...] MD Ot I25.10 ATHSCL HEART DISEASE OF [place] CORONARY 08/26/2018 Jessica PINA MD Ot L40.50 [...] MD Ot I25.10 ATHSCL HEART DISEASE OF [place] CORONARY 08/28/2018 Jessica PINA MD Ot L40.50 [...] MD Ot I25.10 ATHSCL HEART DISEASE OF [place] CORONARY 09/01/2018 Jessica PINA MD Ot L40.50 [...] Ot I25.1 19 ATHSCL HEART DISEASE OF [place] COR ART W 09/11/2018 JO ANN TSAI [...] KIZZY CHERRY MDIC E Ot Z79.0 2 TRAVELING SECRETARY (CURRENT) USE OF ANTITHROMBOTI 09/11/2018 JO ANN STAI ИРИНА E Ot Z87.8 91 PERSONAL HISTORY [...] FOR SURGICAL AFTCR FOLLOWING SURG 01/19/2019 ANTONIO DEISR MD Ot Z95 .1 PRESENCE OF AORTOCORONARY [...] MD Ot I25.10 ATHSCL HEART DISEASE OF [place] CORONARY 03/19/2019 Jessica PINA MD Ot I48 .0 PAROXYSMAL ATRIAL FIBRILLATION 03/19/2019 Jessica PINA MD Ot I65.23 OCCLUSION AND STENOSIS OF BILATERAL [place] 03/19/2019 Jessica PINA MD Ot L40.50 ARTHROPATHIC PSORIASIS, UNSPECIFIED 03/19/2019 Jessica PINA MD Ot Z68.34 BODY MASS INDEX (BMI) 34.0-34.9, ADULT 03/19/2019 Jessica PINA MD Ot Z79.82 NURSING HOME (CURRENT) USE OF ASPIRIN 03/19/2019 Jessica PINA MD Ot Z79.899 OTHER NURSING HOME (CURRENT) DRUG THERAPY 03/19/2019 Jessica PINA MD, [...] MD Ot I25.10 ATHSCL HEART DISEASE OF [place] CORONARY 04/02/2019 Jessica PINA MD Ot I48 .0 PAROXYSMAL ATRIAL FIBRILLATION 04/02/2019 Jessica PINA MD Ot I65.23 OCCLUSION AND STENOSIS OF BILATERAL [place] 04/02/2019 Jessica PINA MD Ot L40.50 ARTHROPATHIC PSORIASIS, UNSPECIFIED 04/02/2019 Jessica PINA MD Ot Z68.34 BODY MASS INDEX (BMI) 34.0-34.9, ADULT 04/02/2019 Jessica PINA MD Ot Z79.82 TRAVELING SECRETARY (CURRENT) USE OF ASPIRIN 04/02/2019 Jessica PINA MD Ot Z79.899 OTHER NURSING HOME (CURRENT) DRUG THERAPY 04/02/2019 Jessica PINA MD [...] MD, Ot I25.10 ATHSCL HEART DISEASE OF [place] CORONARY 07/03/2019 Jessica PINA MD, Ot I48 .0 PAROXYSMAL ATRIAL FIBRILLATION 07/03/2019 Jessica PINA MD, Ot I65.23 OCCLUSION AND STENOSIS OF BILATERAL [place] 07/03/2019 Jessica PINA MD, Ot L40.50 ARTHROPATHIC PSORIASIS, UNSPECIFIED 07/03/2019 Jessica PINA MD, Ot Z68.34 BODY MASS INDEX (BMI) 34.0-34.9, ADULT 07/03/2019 Jessica PINA MD, Ot Z79.82 NURSING HOME (CURRENT) USE OF ASPIRIN 07/03/2019 Jessica PINA MD, Ot Z79.899 OTHER NURSING HOME (CURRENT) DRUG THERAPY 07/03/2019 Jessica PINA MD, Ot Z82.49 FAMILY HX OF ISCHEM HEART DIS AND OTH DI 07/03/2019 Jessica PINA MD, Ot Z87.891 PERSONAL HISTORY OF NICOTINE DEPENDENCE 07/03/2019 Jessica PINA MD, Ot Z95 .1 PRESENCE OF AORTOCORONARY BYPASS GRAFT 07/16/2019 ANTONIO DESIR MD Ot Z29 .8 ENCOUNTER FOR OTHER SPECIFIED PROPHYLACT 08/29/2019 VASYL PACHECO DO Ot I25.10 ATHSCL HEART DISEASE OF [place] CORONARY 08/29/2019 VASYL PACHECO DO Ot I48.91 UNSPECIFIED ATRIAL FIBRILLATION 08/29/2019 VASYL PACHECO DO Ot M54.5 LOW BACK PAIN 08/29/2019 VASYL PACHECO DO Ot S39.012 A STRAIN OF MUSCLE, FASCIA AND TENDON OF L 08/29/2019 VASYL PACHECO DO Ot X50.1XX A OVEREXERTION FROM PROLONGED STATIC OR AW 08/29/2019 VASYL PACHECO DO Ot Z79.02 NURSING HOME (CURRENT) USE OF ANTITHROMBOTI 08/29/2019 CAROLYN PACHECO DOA K Ot Z79.82 TRAVELING SECRETARY (CURRENT) USE OF ASPIRIN 08/29/2019 BURNT CABINS VASYL WINTERS Ot Z82.49 FAMILY HX OF ISCHEM HEART DIS AND OTH DI 08/29/2019 TARA VASYL WINTERS Ot Z87.891 PERSONAL HISTORY OF NICOTINE DEPENDENCE 08/29/2019 BURNT CABINS VASYL WINTERS Ot Z95.1 PRESENCE OF AORTOCORONARY BYPASS GRAFT 09/03/2019 TARA VASYL Teresa Ot I25.10 ATHSCL HEART DISEASE OF [place] CORONARY 09/03/2019 BURNT CABINS VASYL Teresa Ot I48.91 UNSPECIFIED ATRIAL FIBRILLATION 09/03/2019 TARA VASYL Teresa Ot M54.5 LOW BACK PAIN 09/03/2019 TARA VASYL Teresa Ot S39.012 A STRAIN OF MUSCLE, FASCIA AND TENDON OF L 09/03/2019 BURNT CABINS VASYL WINTERS Ot X50.1XX A OVEREXERTION FROM PROLONGED STATIC OR AW 09/03/2019 TARA VASYL Teresa Ot Z79.02 TRAVELING SECRETARY (CURRENT) USE OF ANTITHROMBOTI 09/03/2019 TARA VASYL Teresa Ot Z79.82 NURSING HOME (CURRENT) USE OF ASPIRIN 09/03/2019 BURNT CABINS VASYL Teresa Ot Z82.49 FAMILY HX OF ISCHEM HEART DIS AND OTH DI 09/03/2019 TARA VASYL Teresa Ot Z87.891 PERSONAL HISTORY OF NICOTINE DEPENDENCE 09/03/2019 BURNT CABINS VASYL Teresa Ot Z95.1 PRESENCE OF AORTOCORONARY [...] MD Ot I25.10 ATHSCL HEART DISEASE OF [place] CORONARY 11/18/2019 Jessica PINA MD Ot I48 .0 PAROXYSMAL ATRIAL FIBRILLATION 11/18/2019 Jessica PINA MD Ot I65.23 OCCLUSION AND STENOSIS OF BILATERAL [place] 11/18/2019 Jessica PINA MD Ot L40.50 ARTHROPATHIC PSORIASIS, UNSPECIFIED 11/18/2019 Jessica PINA MD Ot Z68.34 BODY MASS INDEX (BMI) 34.0-34.9, ADULT 11/18/2019 Jessica PINA MD Ot Z79.82 NURSING HOME (CURRENT) USE OF ASPIRIN 11/18/2019 Jessica PINA MD, Ot Z79.899 OTHER TRAVELING SECRETARY (CURRENT) DRUG THERAPY 11/18/2019 Jessica PINA MD, [...] M19.91 PRIMARY OSTEOARTHRITIS, UNSPECIFIED SITE 11/18/2019 Jessica PIAN MD Ot R06.02 SHORTNESS OF BREATH 11/18/2019 [...] MD Ot I25.10 ATHSCL HEART DISEASE OF [place] CORONARY 11/18/2019 Jessica PINA MD Ot I48 .0 PAROXYSMAL ATRIAL FIBRILLATION 11/18/2019 Jessica PINA MD Ot I65.23 OCCLUSION AND STENOSIS OF BILATERAL [place] 11/18/2019 Jessica PINA MD Ot L40.50 ARTHROPATHIC PSORIASIS, UNSPECIFIED 11/18/2019 Jessica PINA MD Ot Z68.34 BODY MASS INDEX (BMI) 34.0-34.9, ADULT 11/18/2019 Jessica PINA MD Ot Z79.82 TRAVELING SECRETARY (CURRENT) USE OF ASPIRIN 11/18/2019 Jessica PINA MD Ot Z79.899 OTHER NURSING HOME (CURRENT) DRUG THERAPY 11/18/2019 Jessica PINA MD, [...] SAMANO Ot R06.02 SHORTNESS OF BREATH 11/18/2019 SILVANA TSAI, Jessica SAMANO Ot R42 DIZZINESS AND GIDDINESS 11/18/2019 KULWINDER TSAI, AISSATOU Hankins Ot R07. 2 PRECORDIAL PAIN 11/18/2019 AISSATOU MIRAMONTES MD Ot R10. 13 EPIGASTRIC PAIN 12/01/2019 AISSATOU MIRAMONTES MD Ot R10. 32 LEFT LOWER QUADRANT PAIN 12/15/2019 AISSATOU MIRAMONTES MD Ot R10. 32 LEFT LOWER QUADRANT PAIN 01/13/2020 SILVANA TSAI, Jessica SAMANO Ot E78 .5 HYPERLIPIDEMIA, UNSPECIFIED 01/13/2020 Jessica PINA MD Ot I11 .0 HYPERTENSIVE HEART DISEASE WITH HEART FA 01/13/2020 Jessica PINA MD Ot I25.10 ATHSCL HEART DISEASE OF [place] CORONARY 01/13/2020 Jessica PINA MD Ot I48 .0 PAROXYSMAL ATRIAL FIBRILLATION 01/13/2020 Jessica PINA MD Ot I51.89 OTHER ILL-DEFINED HEART DISEASES 01/13/2020 Jessica PINA MD Ot M19.90 UNSPECIFIED OSTEOARTHRITIS, UNSPECIFIED 01/30/2020 Jessica PINA MD Ot E78 .5 HYPERLIPIDEMIA, UNSPECIFIED 01/30/2020 Jessica PINA MD Ot I11 .0 HYPERTENSIVE HEART DISEASE WITH HEART FA 01/30/2020 SILVANA TSAI, Jessica SAMANO Ot I25.10 ATHSCL HEART DISEASE OF [place] CORONARY 01/30/2020 Jessica PINA MD Ot I48 .0 PAROXYSMAL ATRIAL FIBRILLATION 01/30/2020 Jessica PINA MD Ot I51.89 OTHER ILL-DEFINED HEART DISEASES 01/30/2020 Jessica PINA MD Ot M19.90 UNSPECIFIED OSTEOARTHRITIS, UNSPECIFIED 02/06/2020 DENNIS AMIN MD Ot C92.00 ACUTE MYELOBLASTIC LEUKEMIA, NOT HAVING 02/06/2020 DENNIS AMIN MD Ot D69.6 THROMBOCYTOPENIA, UNSPECIFIED 02/06/2020 DENNIS AMIN MD Ot E78.5 HYPERLIPIDEMIA, UNSPECIFIED 02/06/2020 DENNIS AMIN MD Ot I11.9 HYPERTENSIVE HEART DISEASE WITHOUT HEART 02/06/2020 BRENNAN TSAI, COLLINS Ot I25.10 ATHSCL HEART DISEASE OF [place] CORONARY 02/06/2020 DENNIS AMIN MD Ot I48.0 PAROXYSMAL ATRIAL FIBRILLATION 02/06/2020 DENNIS AMIN MD Ot M19.91 PRIMARY OSTEOARTHRITIS, UNSPECIFIED SITE 02/06/2020 DENNIS AMIN MD Ot Z79.899 OTHER TRAVELING SECRETARY (CURRENT) DRUG THERAPY 02/06/2020 BRENNAN TSAI, COLLINS Ot Z87.891 PERSONAL HISTORY OF NICOTINE DEPENDENCE 02/06/2020 DENNIS AMIN MD Ot Z95.1 PRESENCE OF AORTOCORONARY BYPASS GRAFT 02/10/2020 DENNIS AMIN MD Ot C92.00 ACUTE MYELOBLASTIC LEUKEMIA, NOT HAVING 02/10/2020 DENNIS AMIN MD Ot D69.6 THROMBOCYTOPENIA, UNSPECIFIED 02/10/2020 DENNIS AMIN MD Ot E78.5 HYPERLIPIDEMIA, UNSPECIFIED 02/10/2020 ELLA AMIN MDNER Ot I11.9 HYPERTENSIVE HEART DISEASE WITHOUT HEART 02/10/2020 BRENNAN TSAI, COLLINS Ot I25.10 ATHSCL HEART DISEASE OF [place] CORONARY 02/10/2020 DENNIS AMIN MD Ot I48.0 PAROXYSMAL ATRIAL FIBRILLATION 02/10/2020 DENNIS AMIN MD Ot M19.91 PRIMARY OSTEOARTHRITIS, UNSPECIFIED SITE 02/10/2020 DENNIS AMIN MD Ot Z79.899 OTHER NURSING HOME (CURRENT) DRUG THERAPY 02/10/2020 DENNIS AMIN MD Ot Z87.891 PERSONAL HISTORY OF NICOTINE DEPENDENCE 02/10/2020 DENNIS AMIN MD Ot Z95.1 PRESENCE OF AORTOCORONARY BYPASS GRAFT 02/11/2020 DENNIS AMIN MD Ot C92.00 ACUTE MYELOBLASTIC LEUKEMIA, NOT HAVING 02/11/2020 DENNIS AMIN MD Ot D69.6 THROMBOCYTOPENIA, UNSPECIFIED 02/11/2020 DENNIS AMIN MD Ot E78.5 HYPERLIPIDEMIA, UNSPECIFIED 02/11/2020 ELLA AMIN MDNER Ot I11.9 HYPERTENSIVE HEART DISEASE WITHOUT HEART 02/11/2020 BRENNAN TSAI, COLLINS Ot I25.10 ATHSCL HEART DISEASE OF [place] CORONARY 02/11/2020 DENNIS AMIN MD Ot I48.0 PAROXYSMAL ATRIAL FIBRILLATION 02/11/2020 DENNIS AMIN MD Ot M19.91 PRIMARY OSTEOARTHRITIS, UNSPECIFIED SITE 02/11/2020 DENNIS AMIN MD Ot Z79.899 OTHER TRAVELING SECRETARY (CURRENT) DRUG THERAPY 02/11/2020 DENNIS AMIN MD Ot Z87.891 PERSONAL HISTORY OF NICOTINE DEPENDENCE 02/11/2020 DENNIS AMIN MD Ot Z95.1 PRESENCE OF AORTOCORONARY BYPASS GRAFT 02/23/2020 DENNIS AMIN MD Ot D64.9 ANEMIA, UNSPECIFIED 02/23/2020 DENNIS AMIN MD Ot D69.6 THROMBOCYTOPENIA, UNSPECIFIED 02/23/2020 DENNIS AMIN MD Ot D72.829 ELEVATED WHITE BLOOD CELL COUNT, UNSPECI 02/23/2020 DENNIS AMIN MD Ot E78.00 PURE HYPERCHOLESTEROLEMIA, UNSPECIFIED 02/23/2020 DENNIS AMIN MD Ot I51.9 HEART DISEASE, UNSPECIFIED 02/23/2020 DENNIS AMIN MD Ot M00.9 PYOGENIC ARTHRITIS, UNSPECIFIED 02/23/2020 DENNIS AMIN MD Ot Z93.3 COLOSTOMY STATUS 02/23/2020 DENNIS AMIN MD Ot Z95.1 PRESENCE OF AORTOCORONARY BYPASS GRAFT 02/23/2020 DENNIS AMIN MD Ot Z95.5 PRESENCE OF CORONARY ANGIOPLASTY IMPLANT Procedures Code Description Performed By Bruce juarez On 38.93 VENO US CATHETERIZATION NEC 04/11/2013 [...] Status Pt. Type Provider Facility Loc./Unit Complaint [id number] 10/20/2014 16:27:25 10/20/2014 23:59: 59 CLS Outpatient Milagros Wolf [id number] 08/13/2014 15:39:15 08/13/2014 23:59: 59 CLS Outpatient Milagros Wolf [id number] 03/04/2020 08:18:00 23:59:59 CLS Outpatient DENNIS AMIN MD [facility] ONC [id number] 02/09/2020 13:15:00 23:59:59 CLS Preadmit DENNIS AMNI MD [facility] RAD ELEVATED WBC COUNT [id number] 02/06/2020 09:40:00 12:15:00 DIS Outpatient DENNIS AMIN MD [facility] RAD ELEVATED WBC [id number] 12/23/2019 08:34:00 23:59:59 CLS Outpatient Jessica PINA MD [facility] CARD CAD,PAF [id number] 11/20/2019 10:24:00 23:59:59 CLS Outpatient AISSATOU MIRAMONTES MD [facility] RAD LT PERINEAL PAIN,LT ING UINAL PAIN [id number] 08/29/2019 17:42:00 19:36:00 DIS Emergency VASYL PACHECO DO [facility] ER BACK PAIN [id number] 07/17/2019 00:15:00 23:59:59 CLS Preadmit ANTONIO DESIR MD [facility] CR PHASE III [id number] 07/07/2019 14:45:00 00:01:00 DIS Outpatient ANTONIO DESIR MD [facility] CR PHASE III [id number] 05/07/2019 13:35:00 23:59:59 CLS Outpatient AISSATOU MIRAMONTES MD [facility] RAD XIPHOID/STERNAL PAIN [id number] 05/02/2019 11:30:00 23:59:59 CLS Preadmit Jessica PINA MD [facility] CARD PAF, DIZZINESS, SOB [id number] 01/31/2019 11:43:00 00:01:00 DIS Outpatient Jessica PINA MD [facility] CARD PAF, DIZZINESS, SOB [id number] 04/02/2019 14:05:00 00:01:00 DIS Outpatient ANTONIO DESIR MD [facility] CR PHASE III [id number] 04/23/2019 09:00:00 23:59:59 CLS Preadmit ANTONIO DESIR MD [facility] CR POST ACB [id number] 02/28/2019 09:08:00 00:01:00 DIS Outpatient ANTONIO DESIR MD [facility] CR POST ACB [id number] 03/13/2019 09:59:00 23:59:59 CLS Outpatient Jessica PINA MD [facility] CATH PAF [id number] 02/14/2019 00:12:00 23:59:59 CLS Preadmit Jessica PINA MD [facility] CARD PAF [id number] 01/20/2019 09:07:00 00:01:00 DIS Outpatient Jessica PINA MD [facility] CARD PAF [id number] 01/22/2019 14:19:00 23:59:59 CLS Preadmit Jessica PINA MD [facility] CARD PAF, DIZZINESS, SOB [id number] 01/15/2019 10:42:00 00:01:00 DIS Outpatient ANTONIO DESIR MD [facility] CR POST ACB [id number] 12/04/2018 10:54:00 23:59:59 CLS Outpatient AISSATOU MIRAMONTES MD [facility] RAD RT CHEST PAIN [id number] 09/04/2018 13:33:00 15:00:00 DIS Inpatient ИРИНА CHERRY MD [facility] IRF TOXIC MYOPATHY [id number] 08/26/2018 11:53:00 18:00:00 DIS Outpatient Jessica PINA MD [facility] CATH CHEST PAIN,SHORTNESS OF BREATH,ABN NUC TEST [id number] 08/22/2018 07:11:00 018 23:59:59 CLS Outpatient Jessica PINA MD [facility] CARD R94.31 ABN EKG [id number] 08/15/2018 11:09:00 018 23:59:59 CLS Outpatient Jessica PINA MD [facility] CARD R94.31 ABN EKG [id number] 12/29/2016 11:07:00 017 23:59:59 CLS Outpatient JAMAR RENEE DO [facility] RAD COUGH [id number] 07/31/2013 11:25:00 013 23:59:59 CLS Outpatient MANI TSAI, SUSU Lopez [facility] LAB LOW K [id number] 07/24/2013 10:27:00 13:30:00 DIS Emergency BOBWALTER SET UP AND LAY OUT INSPECTOR [facility] ER WOUND CHECK [id number] 07/16/2013 08:05:00 13:20:00 DIS Inpatient SUSU SINGLETON MD [facility] SURGICAL DIVERTICULAR STRICTURE [id number] 07/14/2013 08:46:00 11:55:00 DIS Outpatient SUSU SINGLETON MD [facility] SDC DIVERTICULAR STRICTURE [id number] 07/09/2013 10:11:00 23:59:59 CLS Outpatient SUSU SINGLETON MD [facility] PREOP DIVERTICULAR STRICTURE [id number] 06/18/2013 09:15:00 12:48:00 DIS Outpatient SUSU SINGLETON MD [facility] WOUNDCARE ABD WOUND [id number] 04/11/2013 14:10:00 013 11:00:00 DIS Inpatient QUIANA DUVAL DO [facility] SURGICAL OBSTRUCTION OF SIGNOIT,CONSTIPATION,WT LOSS,VOMITI [id number] 04/09/2013 11:34:00 23:59:59 CLS Outpatient QUIANA DUVAL DO [facility] RAD CONSTIPATION,AB D PAIN,DISTENDED STOMACH,WT LOSS [id number] 07/03/2018 14:45:00 Document Registration
--- OUTSIDE RECORDS SUMMARY | 2020-03-08 14:46 | XMS REPORT | Encounter Summary ---
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 documented as of this encounter Plan of Treatment Not on filedocumented as of this encounter Goals Goal Patient Associated Recent Progress Patient-Stat Aut hor Goal Type Problems ed? GOAL General No Alivia Limon, RN Note: Stay healthy documented as of this encounter Visit Diagnoses Diagnosis Acute myeloid 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) documented in this encounter
--- OUTSIDE RECORDS SUMMARY | 2020-03-08 14:46 | XMS REPORT | Encounter Summary ---
Author Author [facility] Organization [facility] Address Unknown Phone Unavailable Care Team Providers Care Manager Desktop Name Role Phone Deny Chilel MD PCP Reason for Visit * Auth/Cert Referred By Contact Referred To Contact Status Reason Specialty Diagnoses / Procedures Diagnoses Acute leukemia not having achieved remission (HCC) acute leukemia Encounter Details Care Team Description Date Type Department Fabiola Howard, ROLL ICER [address] [place] [address] 02/15/2020 [facility] [address] [place] [id number] Social History Date Tobacco Use Types Packs/Day [...] impairment: No documented as of this encounter Medications at Time of Discharge [...] following the same meal each day. 02/20/2020 02/20/2020 acyclovir (ZOVIRAX) 800 Take one 60 tablet 3 mg tablet tablet by mouth every 12 hours. 02/23/2020 adalimumab (CF) (HUMIRA Inject 40 mg 0 PEN) 40 mg/0.4 mL under the injection PEN kit skin every 14 days. 02/20/2020 02/20/2020 allopurinoL (ZYLOPRIM) Take one 10 tablet 0 300 mg tablet tablet by mouth daily. Take with food. 02/23/2020 atorvastatin (LIPITOR) 80 Take 40 mg by 0 mg tablet mouth at bedtime daily. 02/20/2020 02/20/2020 fluconazole (DIFLUCAN) Take two 60 tablet 3 200 mg tablet tablets by mouth daily. 02/23/2020 lisinopriL (ZESTRIL) 20 Take 10 mg by 0 mg tablet mouth every morning. 02/20/2020 02/23/2020 metoprolol tartrate Take one-half 30 tablet 3 (LOPRESSOR) 25 mg tablet tablet by mouth twice daily. 02/23/2020 metoprolol XL (TOPROL XL) Take 25 mg by 0 50 mg extended release mouth daily. tablet 02/21/2020 02/20/2020 posaconazole EC (NOXAFIL) Take three 90 tablet 3 100 mg tablet tablets by mouth daily with breakfast. 02/23/2020 prazosin (MINIPRESS) 2 mg Take 2 mg by 0 capsule mouth at bedtime daily. 02/20/2020 02/20/2020 tamsulosin (FLOMAX) 0.4 Take one 30 capsule 3 mg capsule capsule by mouth daily after breakfast. Do not crush, chew or open capsules. Take 30 minutes following the same meal each day. 02/09/2020 02/17/2020 venetoclax (VENCLEXTA) Take two 60 tablet 0 100 mg tabletIndications: tablets by Acute myeloid leukemia mouth daily. not having achieved Take with remission (HCC) food. documented as of this encounter Plan of Treatment Not on filedocumented as of this encounter Goals Goal Patient Associated Recent Progress Patient-Stat Aut hor Goal Type Problems ed? GOAL General No Alivia Limon RN Note: Stay healthy documented as of this encounter Procedures Comments Procedure Name Priority Date/Time Associated Diag nosis CT CHEST WO CONTRAST ORTEGA 02/15/2020 12:25 PM CDT documented in this encounter Results * CT CHEST WO CONTRAST (02/15/2020 12:25 [...] pleural effusions. 3. Prior CABG with marked [place]qu[place] florentino nary and aortic valvular calcifications. 4. [...] y FINDINGS: Evaluation of the mediastinum and zoe, including the vasculature and for lymphadenopathy, is limited without the use of IV contrast. Lower Neck: Right PICC remains in place with tip resting in the distal SVC. Axilla, Mediastinum and Zoe: There is mild mediastinal lymphadenopathy. A dominant [...] to the myocardium s uggests anemia. Marked [place] coronary artery calcifications and aortic valvul ar [...] day FINDINGS: Evaluation of the mediastinum and zoe, including the vasculature and for lymphadenopathy, is limited without the use of IV contrast. Lower Neck: Right PICC remains in place with tip resting in the distal SVC. Axilla, Mediastinum and Zoe: There is mild mediastinal lymphadenopathy. A dominant [...] relative to the myocardium suggests anemia. Marked [place] coronary artery calcifications and aortic valvular calcifications. [...] pleural effusions. 3. Prior CABG with marked [place]qu[place] delacruz ry and aortic valvular calcifications. 4. [...] City/State/Zipcode Ph one Number [facility] RESULTS documented in this encounter Visit Diagnoses Not on filedocumented in this encounter
[2020-03-08] MEDS ORDERED: RT-ALBUTEROL/IPRATROPIUM 3 ML (DUONEB) VIAL IH SCH (15:00)
[2020-03-08] MEDS ORDERED: VANCOMYCIN INJECTION 0.1 MG in NS (IVPB) 250 ML IV SCH (15:45)
[2020-03-08] MEDS ORDERED: VANCOMYCIN 2000 MG/NS 500 ML IVPB IV NR ×2 (16:00)
[2020-03-08] MEDS ORDERED: PIPERACILLIN/TAZOBACTAM (BULK) 4.5 GM in NS (IVPB) 100 ML IV NR (16:00)
--- NOTE | 2020-03-08 16:02 | NUR ---
CR 0.99; CR CL > 60; WT 120 KG; VANCO 2000 MG IV BOLUS THEN 1250 MG IV Q12H; TROUGH AFTER 3RD DOSE
[2020-03-08 16:16] LABS: ABG BASE EXCESS 2.9 MMOL/L (-2.5-2.5); ABG OXYGEN SATURATION 94 % (94-100); ABG PCO2 32 MMHG (35-45); ABG PH 7.52 (7.37-7.43); ABG PO2 64 MMHG (79-93); ALLENS TEST POSITIVE
[2020-03-08 16:17] LABS: INSPIRED O2 45%; PATIENT TEMP 36.2; VENTILATOR NO
[2020-03-08] MEDS ORDERED: FUROSEMIDE 40 MG/4 ML INJ (LASIX) IVP NR (16:30)
[2020-03-08] MEDS: POTASSIUM CL 10MEQ/50ML IVPB 50 ML IV SCH ×4 (16:57→18:36)
[2020-03-08 17:15] LABS: PHOSPHORUS 4.7 MG/DL (2.3-4.7)
[2020-03-08] MEDS ORDERED: ALBUTEROL/IPRATROP (COMBIVENT RESPIMAT) 4 GM INHALER IH SCH (18:00)
[2020-03-08] MEDS: RT-ALBUTEROL HFA (PROAIR HFA) 8.5 GM IH SCH ×2 (18:04→21:38)
[2020-03-08] MEDS: inSUlin ASPART (NovoLOG) 1 UNIT/0.01 ML (CHARGE PER UNIT) SC SCH ×2 (18:27→23:03)
[2020-03-08] MEDS: PIPERACILLIN/TAZOBACTAM (BULK) 4.5 GM in NS (IVPB) 100 ML IV SCH (20:56)
[2020-03-08] MEDS: CATHETER FLUSH 10 ML SYR IV SCH (20:56)
[2020-03-09] VITALS (31 sets, daily range): BP systolic 102–128; BP diastolic 41–67
[2020-03-09 01:47] LABS: BASOPHILS % (AUTO) 0 % (0-10); EOSINOPHILS % (AUTO) 0 % (0-10); LYMPHOCYTES # (AUTO) 0.4 X 10^3 (1.0-4.0); LYMPHOCYTES % (AUTO) 14 % (12-44); MEAN CORPUSCULAR HGB CONC 32 G/DL (32-36); MEAN CORPUSCULAR VOLUME 103 FL (80-99); MEAN PLATELET VOLUME 10.9 FL (7.4-10.4); MONOCYTES # (AUTO) 0.5 X 10^3 (0.0-1.0); MONOCYTES % (AUTO) 16 % (0-12); NEUTROPHILS % (AUTO) 69 % (42-75); RED CELL DISTRIBUTION WIDTH 24.6 % (10.0-14.5); WHITE BLOOD COUNT 2.9 10^3/uL (4.3-11.0)
[2020-03-09 01:53] LABS: MEAN CORPUSCULAR HEMOGLOBIN 32 PG (25-34)
[2020-03-09 01:55] LABS: CHLORIDE 104 MMOL/L (98-107); POTASSIUM 3.4 MMOL/L (3.6-5.0); SODIUM 139 MMOL/L (135-145)
[2020-03-09 01:56] LABS: HEMATOCRIT 20 % (40-54); HEMOGLOBIN 6.3 G/DL (13.3-17.7); PLATELET COUNT 7 10^3/uL (130-400)
[2020-03-09 01:57] LABS: GLUCOSE 137 MG/DL (70-105)
[2020-03-09 01:58] LABS: CARBON DIOXIDE 23 MMOL/L (21-32)
[2020-03-09 02:00] LABS: PHOSPHORUS 5.4 MG/DL (2.3-4.7)
[2020-03-09 02:01] LABS: CREATININE SERUM 1.15 MG/DL (0.60-1.30); GFR ESTIMATED > 60
[2020-03-09 02:02] LABS: BUN/CREATININE RATIO 29
[2020-03-09 02:03] LABS: MAGNESIUM 1.9 MG/DL (1.6-2.4)
[2020-03-09] MEDS ORDERED: NS IV 500 ML 500 ML ONE (02:13)
[2020-03-09 02:15] LABS: ABG BASE EXCESS 2.9 MMOL/L (-2.5-2.5); ABG OXYGEN SATURATION 97 % (94-100); ABG PCO2 35 MMHG (35-45); ABG PH 7.48 (7.37-7.43); ABG PO2 78 MMHG (79-93); ABG TCO2 27.3 MMOL/L (21.0-31.0)
[2020-03-09 02:17] LABS: ALLENS TEST YES-POS; INSPIRED O2 65%; PATIENT TEMP 36.8; VENTILATOR NO
[2020-03-09] MEDS: POTASSIUM CL 10MEQ/50ML IVPB 50 ML IV SCH ×6 (02:39→08:33)
[2020-03-09] MEDS ORDERED: NS IV 500 ML 500 ML IV SCH (02:45)
[2020-03-09] MEDS: CATHETER FLUSH 10 ML SYR IV SCH ×3 (03:47→21:00)
[2020-03-09] MEDS: VANCOMYCIN 1250 MG/NS 250 ML IVPB IV SCH ×4 (03:47→15:37)
[2020-03-09] MEDS: KCL 20 MEQ TAB (K-DUR) PO SCH (03:48)
[2020-03-09] MEDS: MAGNESIUM 1 GM/100 ML IVPB 100 ML IV SCH (03:48)
--- NOTE | 2020-03-09 04:57 | Pulmonary Consultation ---
History of Present Illness History of Present Illness Time Seen by Provider: 04:52 Date of Admission Allergies and Home Medications Allergies Coded Allergies: No Known Drug Allergies (Unverified , 04/09/13) Home Medications Adalimumab 10 Mg/0.1 Ml Syringekit, 40 MG SQ UD, (Reported) Atorvastatin Calcium 40 Mg Tablet, 40 MG PO HS Prescribed by: ИРИНА CHERRY on 09/10/182010 Lisinopril 10 Mg Tablet, 10 MG PO DAILY Prescribed by: ИРИНА CHERRY on 09/10/182010 Metoprolol Succinate 25 Mg Tab.er.24h, 25 MG PO DAILY Prescribed by: ИРИНА CHERRY on 09/10/182010 Prazosin HCl 1 Mg Capsule, 2 MG PO TID, (Reported) Past Esjnykx-Qeghly-Thulmx Hx Past Med/Social Hx: Reviewed Nursing Past Med/Soc Hx Patient Social History Alcohol Use: Denies Use Recreational Drug Use: No Smoking Status: Former Smoker Type Used: Cigarettes Former Smoker, Quit: Aug 26, 1998 2nd Hand Smoke Exposure: No Recent Foreign Travel: No Contact w/Someone Who Travel: No Recent Infectious Disease Expo: No Recent Hopitalizations: Yes (CABG 08-29-18) Physical Abuse: No Sexual Abuse: No Mistreated: No Fear: No Immunizations Up To Date Tetanus Booster (TDap): More than 5yrs Date of Pneumonia Vaccine: Sep 19, 2012 Seasonal Allergies Seasonal Allergies: Yes Past Medical History Surgeries: Yes (COLECTOMY, COLOSTOMY REVERSAL, HERNIA) CABG Respiratory: No Currently Using CPAP: No Currently Using BIPAP: No Cardiac: Yes Angina, Atrial Fibrillation, Chronic Edema/Swelling, Coronary Artery Disease Neurological: No Reproductive Disorders: No Genitourinary: No Gastrointestinal: Yes (COLOSTOMY REVERSAL) Diverticulosis Musculoskeletal: Yes (ARTHRITIS IN HANDS) Arthritis, Fractures Endocrine: No Cataract Loss of Vision: Denies Hearing Impairment: Denies Cancer: No Psychosocial: No Integumentary: Yes (Rosacea) Blood Disorders: No Adverse Reaction/Blood Tranf: No Family Medical History Cardiovascular disease 19 FATHER G8 SISTER Sepsis Event Evaluation Height, Weight, BMI Height: 6'0.00" Weight: 257lbs. 0.0oz. 116.110905ky; 36.00 BMI Method:Stated Exam Exam Vital Signs Date Time Temp Pulse Resp B/P (MAP) Pulse Ox O2 Delivery O2 Flow Rate FiO2 03/09/20 04:00 84 31 115/56 (75) 97 NIV Bilevel 65.00 03/09/20 04:00 36.8 84 31 115/56 97 NIV Bilevel 65 03/09/20 03:45 96 NIV Bilevel 65 03/09/20 03:45 36.5 84 38 113/52 97 NIV Bilevel 65 03/09/20 03:33 36.5 NIV Bilevel 65.00 03/09/20 02:01 81 28 03/09/20 01:00 75 03/09/20 00:35 NIV Bilevel 65.00 03/08/20 23:05 94 NIV Bilevel 55 03/08/20 23:00 36.5 NIV Bilevel 55.00 03/08/20 22:00 80 26 94/47 (63) 90 NIV Bilevel 55.00 03/08/20 21:39 89 37 03/08/20 21:00 86 41 124/66 (85) 94 NIV Bilevel 55.00 03/08/20 20:00 88 36 130/64 (86) 93 NIV Bilevel 55.00 03/08/20 19:45 NIV Bilevel 55 03/08/20 19:40 36.8 90 44 92 NIV Bilevel 55.00 03/08/20 19:00 91 03/08/20 19:00 92 37 121/60 (80) 93 NIV Bilevel 55.00 03/08/20 18:26 NIV Bilevel 55.00 03/08/20 18:04 89 40 03/08/20 18:00 90 39 130/64 (86) 94 NIV Bilevel 45.00 03/08/20 17:58 94 NIV Bilevel 55 03/08/20 17:00 94 128/67 (87) 96 NIV Bilevel 45.00 03/08/20 16:00 93 NIV Bilevel 55 03/08/20 16:00 91 125/65 (85) 91 NIV Bilevel 45.00 03/08/20 15:00 90 36 134/65 (88) 91 NIV Bilevel 45.00 03/08/20 14:53 36.0 99 84 03/08/20 14:23 36.0 94 33 134/65 (88) 93 NIV Bilevel 45.00 03/08/20 14:05 94 40 03/08/20 14:00 94 134/65 (88) 95 NIV Bilevel 45.00 03/08/20 13:54 86 40 137/62 96 03/08/20 12:08 83 40 03/08/20 11:44 36.4 99 34 149/69 (95) 84 Non Rebreather 6.00 I & O 03/09/20 07:00 Intake Total 1635 ml Output Total 1350 ml Balance 285 ml Height & Weight Height: 6'0.00" Weight: 257lbs. 0.0oz. 116.675686ev; 36.00 BMI Method:Stated General Appearance: Mild Distress HEENT: PERRL/EOMI Neck: Normal Inspection Respiratory: Accessory Muscle Use, Decreased Breath Sounds, Other (patient becomes very winded with even talking) Cardiovascular: Regular Rate, Rhythm Capillary Refill: Less Than 3 Seconds Extremity: Pedal Edema (2+), Swelling Neurologic/Psychiatric: Alert, No Motor/Sensory Deficits, Normal Mood/Affect, analytics specialist II-XII Norm as Tested Skin: Normal Color, Warm/Dry Results Lab Laboratory Tests 03/08/20 11:32 03/09/20 01:30 Assessment/Plan Assessment/Plan Acute respiratory failure -Currently on BiPAP -Pt has double lumen picc line currently Bilateral infiltrates PNA vs pulmonary edema -No leukocyosis or fever -Navarro cultures pending -MRSA swab pending -Influenza was ordered yesterday however not done -BNP is elevated at 359 with normal Cr -Give 80mg of Lasix Pancytopenia -Transfuse 1 unit PRBC -Transfuse platelets -Oncology following Hx of leukemia -Oncology consulted Hypokalemia -Replace KINGA ALBRIGHT DO Mar 09, 2020 04:57
[2020-03-09] MEDS ORDERED: FUROSEMIDE 40 MG/4 ML INJ (LASIX) IVP ONE (05:00)
[2020-03-09] MEDS: inSUlin ASPART (NovoLOG) 1 UNIT/0.01 ML (CHARGE PER UNIT) SC SCH ×4 (05:10→23:06)
[2020-03-09] MEDS: PIPERACILLIN/TAZOBACTAM (BULK) 4.5 GM in NS (IVPB) 100 ML IV SCH ×3 (05:21→21:00)
[2020-03-09 05:58] LABS: INR 1.3 (0.8-1.4); PROTHROMBIN TIME PATIENT 16.6 SEC (12.2-14.7)
[2020-03-09] MEDS: RT-ALBUTEROL HFA (PROAIR HFA) 8.5 GM IH SCH ×5 (07:54→21:28)
[2020-03-09] MEDS ORDERED: POSA100T2 PO (11:12)
[2020-03-09] MEDS ORDERED: TMSL.4C PO (11:12)
[2020-03-09] MEDS ORDERED: METO50TA7 PO (11:12)
[2020-03-09] MEDS ORDERED: AMLO10TA7 PO (11:12)
[2020-03-09] MEDS ORDERED: LEVO750T9 PO (11:12)
[2020-03-09] MEDS ORDERED: ACYC200C PO (11:12)
[2020-03-09] MEDS ORDERED: ALLO300T2 PO (11:12)
--- NOTE | 2020-03-09 11:14 | NUR ---
SPOKE WITH THE PT, CALLED THE [place] FOR A MED LIST (I WILL ATTACH A COPY TO HIS CHART) AND SPOKE WITH THE [facility] TO COMPLETE THE MED REC WHEN I SPOKE WITH THE PT HE INDICATED THE [facility] HAD A CURRENT MED LIST AND I SHOULD CONTACT THEM. THEY FAXED ME THE MED LIST THEY HAD ON FILE BUT DID NOT THINK IT WAS THE MOST CURRENT. THE FOLLOWING ARE FILL DATES FROM THE [place]: 12-22-2019 METOPROLOL SUCC 50MG #45/90DS 02-20-2020 POSACONAZOLE 100MG #270/90DS 02-20-2020 ACYCLOVIR 200MG #240/90DS 02-20-2020 TAMSULOSIN 0.4MG #30/30DS 02-22-2020 AMLODIPINE 10MG #45/90DS 02-22-2020 ALLOPURINOL 300MG #10/10DS ([facility]) 02-25-2020 LEVAQUIN 750MG #30/30DS THE PT WAS TAKING HUMIRA INJECTIONS HOWEVER WHEN I ASKED THE PT IF HE WAS STILL TAKING HE SAID NO HE WASNT
--- NOTE | 2020-03-09 17:16 | Consultation ---
History of Present Illness History of Present Illness Patient Consulted On(luis antonio/time) 03/09/20 17:10 Date Seen by Provider: Mar 09, 2020 Time Seen by Provider: 17:10 History of Present Illness Mr. Chi is a 75 yo male with CAD, CHF, COPD, afib, and AML who was admitted from oncology clinic on 03/08/20 with acute on chronic hypoxic respiratory failure and troponin elevation. He was initially diagnosed with acute monocytic leukemia in clinic on 02/06/20 and transferred immediately to [facility]. He was started on decitabine on 02/09/20 and finished the whole first cycle inpatient. His hospitalization was complicated by NSTEMI, MURTAZA and pneumonia. He was discharged from and presented to our oncology clinic on 02/26/20. At that time, he was breathing well and stable for treatment. He returned on 03/08/20 to start cycle 2 of decitabine but was found to be in respiratory failure so he was brought straight to the ED from clinic. Yesterday evening, he was on NIPPV. Today, he has been downgraded to oxygen by high flow nasal cannula. He feels much better this evening. Allergies and Home Medications Allergies Coded Allergies: No Known Drug Allergies (Unverified , 04/09/13) Home Medications Acyclovir 200 Mg Capsule, 800 MG PO Q12H, (Reported) TAKES 4 (200MG) CAPS EVERY 12 HOURS Allopurinol 300 Mg Tablet, 300 MG PO DAILY, (Reported) Amlodipine Besylate 10 Mg Tablet, 5 MG PO DAILY, (Reported) TAKES OF A 10MG TABLET Levofloxacin 750 Mg Tablet, 750 MG PO DAILY W/ FOOD, (Reported) FILLED 02-25-2020 #30 Metoprolol Succinate 50 Mg Tab.er.24h, 25 MG PO DAILY, (Reported) TAKES OF A 50MG TAB Posaconazole 100 Mg Tablet.dr, 300 MG PO DAILY W/FOOD, (Reported) TAKES 3 (100MG) TABLETS DAILY Tamsulosin HCl 0.4 Mg Cap, 0.4 MG PO DAILY, (Reported) Patient Home Medication List Home Medication List Reviewed: Yes Past Lnejvki-Fwikfo-Clkjrg Hx Past Med/Social Hx: Reviewed Nursing Past Med/Soc Hx Patient Social History Alcohol Use: Denies Use Recreational Drug Use: No Smoking Status: Former Smoker Type Used: Cigarettes Former Smoker, Quit: Aug 26, 1998 2nd Hand Smoke Exposure: No Recent Foreign Travel: No Contact w/Someone Who Travel: No Recent Infectious Disease Expo: No Recent Hopitalizations: Yes (CABG 08-29-18) Physical Abuse: No Sexual Abuse: No Mistreated: No Fear: No Immunizations Up To Date Tetanus Booster (TDap): More than 5yrs Date of Pneumonia Vaccine: Sep 19, 2012 Seasonal Allergies Seasonal Allergies: Yes Past Medical History Surgeries: Yes (COLECTOMY, COLOSTOMY REVERSAL, HERNIA) CABG Respiratory: No Currently Using CPAP: No Currently Using BIPAP: No Cardiac: Yes Angina, Atrial Fibrillation, Chronic Edema/Swelling, Coronary Artery Disease Neurological: No Reproductive Disorders: No Genitourinary: No Gastrointestinal: Yes (COLOSTOMY REVERSAL) Diverticulosis Musculoskeletal: Yes (ARTHRITIS IN HANDS) Arthritis, Fractures Endocrine: No Cataract Loss of Vision: Denies Hearing Impairment: Denies Cancer: No Psychosocial: No Integumentary: Yes (Rosacea) Blood Disorders: No Adverse Reaction/Blood Tranf: No Family Medical History Cardiovascular disease 19 FATHER G8 SISTER Review of Systems-General Constitutional: weakness EENTM: no symptoms reported Respiratory: cough, dyspnea on exertion, short of breath Gastrointestinal: no symptoms reported Genitourinary: no symptoms reported Musculoskeletal: no symptoms reported Skin: no symptoms reported Psychiatric/Neurological: No Symptoms Reported Physical Exam-General Problems Physical Exam Vital Signs Vital Signs - First Documented 03/08/20 03/08/20 11:44 16:00 Temp 36.4 Pulse 99 Resp 34 B/P (MAP) 149/69 (95) Pulse Ox 84 O2 Delivery Non Rebreather O2 Flow Rate 6.00 FiO2 55 Capillary Refill : Less Than 3 Seconds General Appearance: WD/WN, no apparent distress Eyes: Bilateral Eye Normal Inspection, Bilateral Eye EOMI HEENT: normal ENT inspection, pharynx normal Neck: normal inspection Respiratory: chest non-tender, no accessory muscle use, decreased breath sounds Cardiovascular: no murmur, tachycardia Gastrointestinal: non tender, soft Back: normal inspection Extremities: normal range of motion, pedal edema Neurologic/Psychiatric: alert, normal mood/affect, oriented x 3 Skin: normal color, warm/dry Assessment/Plan Assessment/Plan Admission Diagnosis/Plan 75 yo male with severe chronic heart and lung disease and recently diagnosed AML was admitted for acute on chronic hypoxic respiratory failure secondary to pneumonia vs CHF vs multiple factors. He is currently being treated with broad spectrum antibiotics and diuretics. 1. Hypoxic respiratory failure. Much improved with antibiotics and diuretics. If there is an infection component, it is likely from his severe immunocompromised state and baseline heart disease. There is a small proportion of patients who have heart failure provoked by decitabine, but it is less likely. 2. AML. Severe pancytopenia is secondary to malignancy, with smaller contribution to decitabine. His counts are not expected to improve quickly, and that is only if decitabine works. It is too soon to determine if his disease is responsive to decitabine. He will need to be on prophylactic posaconazole and acyclovir in addition to his broad spectrum antibiotics. Transfuse to keep hgb >8.0 due to his heart disease and platelets >10. 3. CAD. I think it is unlikely that decitabine is directly responsible for troponin elevation. Since he will need to be on posaconazole, it is preferred that he not be on a statin. If cardiology deems it necessary to be on a statin, rosuvastatin is least likely to interact with posaconazole. Thank you for allowing me to participate in the care of Mr. Chi. Will continue to follow. Clinical Quality Measures DVT/VTE Risk/Contraindication: Risk Factor Score Per Nursin RFS Level Per Nursing on Admit: 4+=Very High DENNIS AMIN MD Mar 09, 2020 17:16
[2020-03-09] MEDS: ACYCLOVIR 400 MG TABLET (ZOVIRAX) PO SCH (20:52)
--- NOTE | 2020-03-09 23:38 | History & Physical ---
History of Present Illness History of Present Illness Reason for visit/HPI 75 yo M with significant history of CAD and recent diagnosis of AML admitted for acute hypoxic respiratory failure. He was seen initially at heme/onc clinic but sent over to the ER for hypoxia. He was placed on BiPAP with good results. He has pancytopenia due to his AML and was going to start second cycle of chemotherapy. Last admission was last month at for new diagnosis of AML and pneumonia. He was admitted to the ICU for close monitoring and evaluation. COVID-19 test was negative. Date of Admission Mar 08, 2020 at 13:20 Date Seen by a Provider: Mar 09, 2020 Time Seen by a Provider: 12:30 I consulted on this patient on 03/09/20 23:34 Attending Physician Deny Chilel MD Admitting Physician Deny Chilel MD Consult Dr. Marianne Abrams Allergies and Home Medications Allergies Coded Allergies: No Known Drug Allergies (Unverified , 04/09/13) Home Medications Acyclovir 200 Mg Capsule, 800 MG PO Q12H, (Reported) TAKES 4 (200MG) CAPS EVERY 12 HOURS Allopurinol 300 Mg Tablet, 300 MG PO DAILY, (Reported) Amlodipine Besylate 10 Mg Tablet, 5 MG PO DAILY, (Reported) TAKES OF A 10MG TABLET Levofloxacin 750 Mg Tablet, 750 MG PO DAILY W/ FOOD, (Reported) FILLED 02-25-2020 #30 Metoprolol Succinate 50 Mg Tab.er.24h, 25 MG PO DAILY, (Reported) TAKES OF A 50MG TAB Posaconazole 100 Mg Tablet.dr, 300 MG PO DAILY W/FOOD, (Reported) TAKES 3 (100MG) TABLETS DAILY Tamsulosin HCl 0.4 Mg Cap, 0.4 MG PO DAILY, (Reported) Patient Home Medication List Home Medication List Reviewed: Yes Past Ervocqr-Zovugm-Vlfuvc Hx Patient Social History Alcohol Use: Denies Use Recreational Drug Use: No Smoking Status: Former Smoker Former Smoker, Quit: Aug 26, 1998 Type Used: Cigarettes 2nd Hand Smoke Exposure: No Recent Foreign Travel: No Contact w/other who traveled: No Recent Hopitalizations: Yes (CABG 08-29-18) Recent Infectious Disease Expo: No Immunizations Up To Date Tetanus Booster (TDap): More than 5yrs Date of Pneumonia Vaccine: Sep 19, 2012 Seasonal Allergies Seasonal Allergies: Yes Surgeries Yes (COLECTOMY, COLOSTOMY REVERSAL, HERNIA) CABG Respiratory No Currently Using CPAP: No Currently Using BIPAP: No Cardiovascular Yes Angina, Atrial Fibrillation, Chronic Edema/Swelling, Coronary Artery Disease Neurological No Reproductive System Hx Reproductive Disorders: No Genitourinary No Gastrointestinal Yes (COLOSTOMY REVERSAL) Diverticulosis Musculoskeletal Yes (ARTHRITIS IN HANDS) Arthritis, Fractures Endocrine History of Endocrine Disorders: No HEENT HEENT Disorders: Cataract Loss of Vision: Denies Hearing Impairment: Denies Cancer No Psychosocial History of Psychiatric Problem: No Integumentary History of Skin or Integumenta: Yes (Rosacea) Blood Transfusions History of Blood Disorders: No Adverse Reaction to a Blood Tr: No Family Medical History Family Hx: Cardiovascular disease 19 FATHER G8 SISTER Review of Systems Review of Systems General: No Chills, No Night Sweats HEENT: No Head Aches Pulmonary: Dyspnea, Cough Cardiovascular: Palpitations; No: Chest Pain Gastrointestinal: No: Nausea, Vomiting, Abdominal Pain Genitourinary: No Dysuria Musculoskeletal: No: neck pain Neurological: Weakness; No: Confusion Physical Exam Vital Signs Vital Signs - First Documented 03/08/20 03/08/20 11:44 16:00 Temp 36.4 Pulse 99 Resp 34 B/P (MAP) 149/69 (95) Pulse Ox 84 O2 Delivery Non Rebreather O2 Flow Rate 6.00 FiO2 55 Capillary Refill : Less Than 3 Seconds Height, Weight, BMI Height: 6'0.00" Weight: 257lbs. 0.0oz. 116.235029jd; 36.00 BMI Method:Stated General Appearance: Mild Distress Eyes: Bilateral Eye PERRL HEENT: PERRL/EOMI Neck: Full Range of Motion, Non Tender Respiratory: Chest Non Tender, Decreased Breath Sounds, Respiratory Distress, Rhonci Cardiovascular: Regular Rate, Rhythm Gastrointestinal: Non Tender, Soft Rectal: Deferred Back: No CVA Tenderness Extremity: Normal Range of Motion, Non Tender, Pedal Edema (trace) Neurologic/Psychiatric: Alert, Oriented x3, Normal Mood/Affect Skin: Warm/Dry Assessment/Plan Assessment/Plan Admission Dx acute hypoxic respiratory failure AML pancytopenia Admission Status: Inpatient Order (span 2 midnights) Reason for Inpatient Admission: Patient is expected to stay over 2 midnights as he has acute hypoxic respiratory failure with critical pancytopenia required pRBC and platelet transfusions. Will require more than 2 midnights to stabilize patient. Assessment and Plan 03/08/20- admitted to ICU for AHRF 03/09/20- Platelets and hgb have trended down and he received both transfusion today. Transitioned to HFNC from BiPAP- panculture. broad spectrum antibiotics. vanc/zosyn, levoquin. -diuresing. COVID-19 negative. Dispo: improving but could decompensate quickly. Problems: (1) Acute respiratory failure with hypoxia Assessment & Plan: respiratory therapy consult Dr. Lopes consult eICU following along. (2) AML (acute myeloblastic leukemia) (3) CAD (coronary artery disease), [place] coronary artery Assessment & Plan: s/p CABG 2017 (4) Hypertension Clinical Quality Measures DVT/VTE Risk/Contraindication: Risk Factor Score Per Nursin RFS Level Per Nursing on Admit: 4+=Very High DENY CHILEL MD Mar 09, 2020 23:38
[2020-03-10] VITALS (24 sets, daily range): BP systolic 101–138; BP diastolic 50–92
[2020-03-10 02:29] LABS: BASOPHILS % (AUTO) 0 % (0-10); EOSINOPHILS % (AUTO) 0 % (0-10); HEMATOCRIT 23 % (40-54); HEMOGLOBIN 7.4 G/DL (13.3-17.7); LYMPHOCYTES # (AUTO) 0.8 X 10^3 (1.0-4.0); LYMPHOCYTES % (AUTO) 13 % (12-44); MEAN CORPUSCULAR HEMOGLOBIN 33 PG (25-34); MEAN CORPUSCULAR HGB CONC 32 G/DL (32-36); MEAN CORPUSCULAR VOLUME 103 FL (80-99); MEAN PLATELET VOLUME 10.1 FL (7.4-10.4); MONOCYTES # (AUTO) 1.7 X 10^3 (0.0-1.0); MONOCYTES % (AUTO) 27 % (0-12); NEUTROPHILS # (AUTO) 3.9 X 10^3 (1.8-7.8); NEUTROPHILS % (AUTO) 61 % (42-75); RED CELL DISTRIBUTION WIDTH 24.4 % (10.0-14.5); WHITE BLOOD COUNT 6.4 10^3/uL (4.3-11.0)
[2020-03-10 02:32] LABS: PLATELET COUNT 23 10^3/uL (130-400)
[2020-03-10 02:36] LABS: CHLORIDE 105 MMOL/L (98-107); POTASSIUM 3.2 MMOL/L (3.6-5.0); SODIUM 141 MMOL/L (135-145)
[2020-03-10 02:38] LABS: CALCIUM 7.9 MG/DL (8.5-10.1); GLUCOSE 125 MG/DL (70-105)
[2020-03-10 02:40] LABS: CARBON DIOXIDE 25 MMOL/L (21-32)
[2020-03-10 02:42] LABS: CREATININE SERUM 1.16 MG/DL (0.60-1.30); GFR ESTIMATED > 60; PHOSPHORUS 4.2 MG/DL (2.3-4.7)
[2020-03-10 02:43] LABS: BUN/CREATININE RATIO 32
[2020-03-10 02:45] LABS: MAGNESIUM 2.2 MG/DL (1.6-2.4)
[2020-03-10 02:51] LABS: VANCOMYCIN,TROUGH 16.3 UG/ML (10.0-20.0)
[2020-03-10] MEDS ORDERED: TROUGH ORDER-PHARMACY XX NR (03:00)
[2020-03-10] MEDS: MAGNESIUM 1 GM/100 ML IVPB 100 ML IV SCH (03:08)
[2020-03-10] MEDS: CATHETER FLUSH 10 ML SYR IV SCH ×3 (03:08→22:00)
[2020-03-10] MEDS: VANCOMYCIN 1250 MG/NS 250 ML IVPB IV SCH ×4 (03:08→15:17)
[2020-03-10] MEDS: POTASSIUM CL 10MEQ/50ML IVPB 50 ML IV SCH ×11 (03:08→12:04)
[2020-03-10] MEDS: KCL 20 MEQ TAB (K-DUR) PO SCH (03:09)
[2020-03-10] MEDS: inSUlin ASPART (NovoLOG) 1 UNIT/0.01 ML (CHARGE PER UNIT) SC SCH ×4 (03:09→19:49)
[2020-03-10] MEDS: PIPERACILLIN/TAZOBACTAM (BULK) 4.5 GM in NS (IVPB) 100 ML IV SCH ×3 (05:02→22:00)
--- NOTE | 2020-03-10 05:28 | Pulmonary Progress Note ---
Subjective Time Seen by a Provider: 06:12 Subjective/Events-last exam still requiring a lot of oxygen. Sepsis Event Evaluation Height, Weight, BMI Height: 6'0.00" Weight: 257lbs. 0.0oz. 116.528293ud; 36.00 BMI Method:Stated Focused Exam Lactate Level 03/08/20 16:40: Lactic Acid Level 1.22 Exam Exam Vital Signs Date Time Temp Pulse Resp B/P (MAP) Pulse Ox O2 Delivery O2 Flow Rate FiO2 03/10/20 04:00 36.8 Vapotherm 35.00 85.00 03/10/20 04:00 92 14 123/56 (78) 91 Vapotherm 35.00 85.00 03/10/20 03:15 92 Vapotherm 35.00 85 03/10/20 03:10 36.9 92 18 92 Vapotherm 35.00 85.00 03/10/20 03:00 89 24 120/58 (78) 96 Vapotherm 35.00 85.00 03/10/20 02:20 Vapotherm 35.00 85.00 03/10/20 02:00 86 24 124/62 (82) 94 NIV Bilevel 55.00 03/10/20 01:00 82 16 127/60 (82) 94 NIV Bilevel 55.00 03/10/20 00:56 87 03/10/20 00:00 77 22 112/50 (70) 95 NIV Bilevel 55.00 03/09/20 23:15 NIV Bilevel 55.00 03/09/20 23:10 95 NIV Bilevel 60 03/09/20 23:00 36.8 89 20 112/54 (73) 95 NIV Bilevel 60.00 03/09/20 22:00 87 12 123/56 (78) 95 NIV Bilevel 60.00 03/09/20 21:55 NIV Bilevel 60.00 03/09/20 21:28 90 Vapotherm 35.00 85 03/09/20 21:00 84 32 118/60 (79) 93 Vapotherm 35.00 85.00 03/09/20 20:00 36.6 03/09/20 20:00 86 33 114/55 (74) 95 Vapotherm 35.00 85.00 03/09/20 19:30 93 Vapotherm 35.00 85 03/09/20 19:00 91 03/09/20 19:00 88 34 117/61 (79) 93 Vapotherm 35.00 85.00 03/09/20 18:19 92 Vapotherm 35.00 85 03/09/20 18:05 87 37 102/41 (61) 93 Vapotherm 35.00 85.00 03/09/20 17:00 92 34 123/61 (81) 93 Vapotherm 35.00 85.00 03/09/20 16:00 36.4 03/09/20 15:13 79 24 110/49 (69) 93 Vapotherm 35.00 80.00 03/09/20 15:04 94 Vapotherm 75 03/09/20 14:11 95 Vapotherm 35.00 90 03/09/20 14:00 79 26 112/54 (73) 93 Vapotherm 35.00 75.00 03/09/20 13:10 85 03/09/20 13:00 87 31 107/56 (73) 93 Vapotherm 35.00 75.00 03/09/20 12:00 99 36 128/67 (87) 93 Vapotherm 35.00 75.00 03/09/20 11:55 36.9 90 24 128/67 93 Vapotherm 90 03/09/20 11:28 94 Vapotherm 75 03/09/20 11:02 91 Vapotherm 35.00 75 03/09/20 11:00 37.0 93 24 118/57 94 NIV Bilevel 60 03/09/20 11:00 82 34 118/57 (77) 93 Vapotherm 35.00 75.00 03/09/20 10:40 37.3 83 24 120/61 95 60 03/09/20 10:25 37.0 84 22 116/60 95 NIV Bilevel 60 03/09/20 10:05 82 34 116/60 (78) 95 NIV Bilevel 60.00 03/09/20 09:00 80 32 119/59 (79) 96 NIV Bilevel 60.00 03/09/20 09:00 36.9 82 22 119/59 94 NIV Bilevel 60 03/09/20 08:39 36.8 80 24 116/53 94 NIV Bilevel 60 03/09/20 08:00 94 NIV Bilevel 60 03/09/20 08:00 81 36 116/53 (74) 96 NIV Bilevel 60.00 03/09/20 07:55 79 29 95 60.00 03/09/20 07:00 75 23 109/53 (71) 96 NIV Bilevel 60.00 03/09/20 07:00 74 03/09/20 06:35 36.9 80 27 114/56 94 NIV Bilevel 60 03/09/20 06:00 NIV Bilevel 60.00 03/09/20 06:00 85 32 114/56 (75) 96 NIV Bilevel 60.00 I & O 03/10/20 07:00 Intake Total 2885.0 ml Output Total 2630 ml Balance 255.0 ml Height & Weight Height: 6'0.00" Weight: 257lbs. 0.0oz. 116.535976nc; 36.00 BMI Method:Stated General Appearance: Mild Distress HEENT: PERRL/EOMI Neck: Full Range of Motion, Non Tender Respiratory: Chest Non Tender, Decreased Breath Sounds, Respiratory Distress, Rhonci Cardiovascular: Regular Rate, Rhythm Capillary Refill: Less Than 3 Seconds Gastrointestinal: non tender, soft Extremity: Normal Range of Motion, Non Tender, Pedal Edema (trace) Neurologic/Psychiatric: Alert, Oriented x3, Normal Mood/Affect Skin: Warm/Dry Results Lab Laboratory Tests 03/08/20 11:32 03/09/20 01:30 03/10/20 02:15 Assessment/Plan Assessment/Plan Acute respiratory failure -Currently on BiPAP -- pt improved after lasix yesterday. -BNP is elevated -Repeat Lasix and BNP -Currently no fever, no leukocytosis -Pt has double lumen picc line currently Bilateral infiltrates PNA vs pulmonary edema -No leukocyosis or fever -Navarro cultures pending -MRSA swab - negative -COVID is negative -Influenza -- negative -BNP is elevated at 359 with normal Cr -repeat echo last was 01/08 -Give 80mg of Lasix -Currently on Zosyn and vancomycin -Change diflucan to eraxis Hypokalemia -replace Pancytopenia -Transfuse 1 unit PRBC -Transfuse platelets -Oncology following Hx of leukemia -Oncology consulted Hypokalemia -Replace KINGA ALBRIGHT DO Mar 10, 2020 05:27
[2020-03-10] MEDS ORDERED: FUROSEMIDE 40 MG/4 ML INJ (LASIX) IVP ONE (05:30)
[2020-03-10] MEDS ORDERED: methylPREDNISolone 125 MG (Solu-MEDROL) VIAL IVP ONE (05:30)
[2020-03-10 06:02] LABS: BILIRUBIN,URINE 1+ (NEGATIVE); CLARITY,URINE CLOUDY; COLOR,URINE BROWN; GLUCOSE, URINE (UA) NEGATIVE (NEGATIVE); KETONES,URINE NEGATIVE (NEGATIVE); LEUKOCYTE ESTERASE ,URINE TRACE (NEGATIVE); NITRITE,URINE NEGATIVE (NEGATIVE); PROTEIN,URINE 2+ (NEGATIVE)
[2020-03-10 06:34] LABS: BACTERIA,URINE FEW /HPF; RBC,URINE TNTC /HPF
[2020-03-10 06:35] LABS: TRICHOMONAS,URINE FEW /HPF
--- NOTE | 2020-03-10 06:57 | Diagnostic Imaging Report ---
INDICATION: Shortness of breath COMPARISON: 03/08/2020 FINDINGS: Single view of the chest demonstrates worsening bilateral pulmonary infiltrates. The heart is enlarged. There is no pneumothorax. Trace effusion is seen in the right base. Osseous structures are age-appropriate. IMPRESSION: Worsening bilateral pulmonary infiltrates. Dictated by: Dictated on workstation # [id number]
[2020-03-10] MEDS ORDERED: RT-ALBUTEROL SULF 2.5 MG/3 ML PRE-MIX VIAL INH PRN (07:30)
[2020-03-10] MEDS: RT-ALBUTEROL HFA (PROAIR HFA) 8.5 GM IH SCH ×3 (07:44→14:17)
[2020-03-10] MEDS ORDERED: ANIDULAFUNGIN INJECTION 200 MG in NS (IVPB) 250 ML IV ONE (08:00)
[2020-03-10] MEDS: ACYCLOVIR 400 MG TABLET (ZOVIRAX) PO SCH ×2 (08:40→19:49)
[2020-03-10] MEDS: PANTOPRAZOLE 40 MG (PROTONIX) VIAL IV SCH (08:40)
[2020-03-10] MEDS ORDERED: fluCOnazole (DIFLUCAN) 100 MG TAB PO SCH (09:00)
--- NOTE | 2020-03-10 10:23 | NUR ---
"RD ASSESSMENT PMHx: afib; CAD; diverticulosis; leukemia; COPD; CHF PT INTERACTION: Pt was awake and pleasant during nutrition assessment. Pt states current appetite is pretty good and that is better than it was at home. Note avg PO intake 42% x1d, per chart review. Pt states following a regular diet at home and has no issues with chewing/swallowing food. Pt states no recent issues with n/v/c/d at this time, and is unsure of when his last BM was. Note no BM has been recorded, and pt not currently on bowel regimen per chart review. Pt states unsure of recent wt changes. Note recetn 14# wt loss x6mon, per chart review. ABNORMAL NUTRITION-RELATED LAB VALUES LOW: K 3.2; Ca 7.9 HIGH: BUN 37; glu 125 Est. kcal needs: 9710-1507 kcal | 15-18 kcal/kg Est. Pro needs: 111-133 g Pro | 1.0-1.2 g Pro/kg PES STATEMENT: Inadequate oral intake (NI-2.1) related to loss of appetite as evidenced by pt interview | avg PO intake 42% x1d INTERVENTION: Continue with current diet order of Heart Healthy diet. Add Ensure Enlive (vary) to meals BID, for increased kcal intake. Provides 350 kcal and 13 g Pro per serving. Will continue to follow and reassess as pt needs, intake, and status change. MONITOR/EVALUATE: PO Intake; Plan of Care; Hydration Status; Weight Status; Lab Values Noris Matamoros, MS, RD, LD"
[2020-03-10] MEDS: RT-ALBUTEROL SULF 2.5 MG/3 ML PRE-MIX VIAL INH SCH ×4 (10:24→22:07)
[2020-03-10] MEDS: methylPREDNISolone 40 MG/ML (Solu-MEDROL) VIAL IV SCH ×2 (12:04→17:27)
--- NOTE | 2020-03-10 13:50 | Consultation-Cardiology ---
HPI-Cardiology Cardiology Consultation: Date of Consultation 03/10/20 Date of Admission Attending Physician Deny Chilel MD Admitting Physician Deny Chilel MD Consulting Physician Jessica MUÑIZ MD HPI: Time Seen by a Provider: 12:00 Chief Complaint: Shortness of breath This is a 75-year-old gentleman who is a patient of Dr. Deny Chilel. He has history of CAD, CABG done at [facility]. He also has history of rheumatoid arthritis. He had recent diagnosis of AML and was sent from the oncology clinic to the ER for hypoxia. He has previous admission last month at due to AML and pneumonia. He's had one cycle of chemotherapy, awaiting second cycle. Patient does have pancytopenia. COVID-19 negative. The patient denies active smoking. Pertinent family history is negative. Review of Systems-Cardiology Review of Systems Constitutional: As described under HPI; No As described under HPI, No no symptoms reported, No chills, No fever, No lightheadedness Eyes: No As described under HPI, No no symptoms reported, No blindness, No blurred vision, No contact lenses, No drainage, No decreased acuity, No foreign body sensation, No pain, No vision change Ears/Nose/Throat: No As described under HPI, No no symptoms reported, No ch ronic hearing loss, No ear discharge, No ear pain, No nasal drainage, No ulcerations Respiratory: No no symptoms reported; As described under HPI; No As described under HPI, No cough; orthopnea, shortness of breath; No SOB with excertion Cardiovascular: No no symptoms reported; As described under HPI; No As described under HPI, No chest pain, No edema, No irregular heart rate, No lightheadedness, No palpitations Gastrointestinal: No no symptoms reported, No As described under HPI, No abdomen distended, No abdominal pain, No blood streaked bowels, No constipation, No diarrhea, No nausea, No vomiting, No stool coloration changes Genitourinary: No As described under HPI, No burning, No dysuria, No discharge, No frequency, No flank pain, No hematuria, No urgency Skin: No rash, No skin related problems, No ulcerations Psychiatric/Neurological: No anxiety, No depression, No seizure, No focal weakness, No syncope Hematologic: No bleeding abnormalities [id number] Hx Patient Social History Alcohol Use: Denies Use Recreational Drug Use: No Smoking Status: Former Smoker Type Used: Cigarettes 2nd Hand Smoke Exposure: No Recent Foreign Travel: No Recent Infectious Disease Expo: No Immunizations Up To Date Tetanus Booster (TDap): More than 5yrs Date of Pneumonia Vaccine: Sep 19, 2012 Past Medical History PMH As described under Assessment. Family Medical History Family History: Cardiovascular disease 19 FATHER G8 SISTER Allergies and Home Medications Allergies Coded Allergies: No Known Drug Allergies (Unverified , 04/09/13) Home Medications Acyclovir 200 Mg Capsule, 800 MG PO Q12H, (Reported) TAKES 4 (200MG) CAPS EVERY 12 HOURS Allopurinol 300 Mg Tablet, 300 MG PO DAILY, (Reported) Amlodipine Besylate 10 Mg Tablet, 5 MG PO DAILY, (Reported) TAKES OF A 10MG TABLET Levofloxacin 750 Mg Tablet, 750 MG PO DAILY W/ FOOD, (Reported) FILLED 02-25-2020 #30 Metoprolol Succinate 50 Mg Tab.er.24h, 25 MG PO DAILY, (Reported) TAKES OF A 50MG TAB Posaconazole 100 Mg Tablet.dr, 300 MG PO DAILY W/FOOD, (Reported) TAKES 3 (100MG) TABLETS DAILY Tamsulosin HCl 0.4 Mg Cap, 0.4 MG PO DAILY, (Reported) Patient Home Medication List Home Medication List Reviewed: Yes Physical Exam-Cardiology Physical Exam Vital Signs/I&O 03/12/20 03/12/20 03/12/20 03/12/20 03:35 04:00 04:20 05:00 Pulse 82 82 Resp 22 21 B/P (MAP) 122/56 (78) 125/59 (81) Pulse Ox 89 91 O2 Delivery Vapotherm Vapotherm NIV Bilevel NIV Bilevel O2 Flow Rate 40.00 40.00 55.00 55.00 100.00 FiO2 100 03/12/20 03/12/20 03/12/20 03/12/20 06:00 06:40 06:41 07:00 Pulse 86 98 90 Resp 19 22 B/P (MAP) 134/58 (83) 125/64 (84) Pulse Ox 91 91 O2 Delivery NIV Bilevel NIV Bilevel NIV Bilevel O2 Flow Rate 55.00 65.00 65.00 03/12/20 03/12/20 03/12/20 03/12/20 07:02 07:57 08:00 08:00 Temp 36.2 Pulse 93 93 Resp 25 29 B/P (MAP) 124/57 (79) Pulse Ox 93 93 O2 Delivery NIV Bilevel NIV Bilevel O2 Flow Rate 65.00 65.00 FiO2 65 03/12/20 03/12/20 03/12/20 03/12/20 09:00 10:00 10:27 10:38 Pulse 92 89 93 Resp 35 15 23 B/P (MAP) 135/59 (84) 130/68 (88) Pulse Ox 98 98 98 O2 Delivery NIV Bilevel NIV Bilevel NIV Bilevel O2 Flow Rate 65.00 65.00 100.00 80.00 03/12/20 03/12/20 03/12/20 03/12/20 11:00 12:00 12:00 12:38 Temp 36.8 Pulse 92 88 88 Resp 18 21 B/P (MAP) 118/59 (78) 121/57 (78) Pulse Ox 96 95 O2 Delivery NIV Bilevel NIV Bilevel O2 Flow Rate 80.00 80.00 03/12/20 03/12/20 03/12/20 03/12/20 13:00 14:00 15:06 15:09 Pulse 90 84 93 Resp 18 20 26 B/P (MAP) 120/62 (81) 120/57 (78) Pulse Ox 97 97 98 O2 Delivery NIV Bilevel NIV Bilevel NIV Bilevel O2 Flow Rate 80.00 80.00 80.00 60.00 03/11/20 23:59 Intake Total 935 ml Output Total 1600 ml Balance -665 ml Capillary Refill : Less Than 3 Seconds Constitutional: AAO x 3, apparent distress HEENT: PERRL; No discharge; hearing is well preserved, oral hygience is good; No ulceration, No xanthelasmas are seen Neck: No carotid bruit; carotid pulses are 2 + bilaterally Respiratory: respiratory distress, chest is bilaterally symmetric, other (Decreased breath sounds bilaterally.) Cardiovascular: regular rate-rhythm, S1 and S2 Gastrointestinal: soft, distended, audible bowel sounds; No spleenomegaly Rectal: deferred Extremities: normal range of motion, non-tender, normal inspection; No clubbing, No cyanosis, No significant edema Neurologic/Psychiatric: no motor/sensory deficits, alert, normal mood/affect, oriented x 3, power is 5/5 both on sides Skin: pallor; No rash, No ulcerations Data Review Labs Laboratory Tests 03/11/20 15:57: Glucometer 306H 03/11/20 20:12: Glucometer 220H 03/12/20 02:57: White Blood Count 4.1L, Red Blood Count 2.34L, Hemoglobin 7.6L, Hematocrit 25L, Mean Corpuscular Volume 105H, Mean Corpuscular Hemoglobin 32, Mean Corpuscular Hemoglobin Concent 31L, Red Cell Distribution Width 24.2H, Platelet Count 11*L, Mean Platelet Volume 10.2, Neutrophils (%) (Auto) 82H, Lymphocytes (%) (Auto) 9L , Monocytes (%) (Auto) 9, Eosinophils (%) (Auto) 0, Basophils (%) (Auto) 0, Neutrophils # (Auto) 3.3, Lymphocytes # (Auto) 0.4L, Monocytes # (Auto) 0.4, Eosinophils # (Auto) 0.0, Basophils # (Auto) 0.0, Sodium Level 141, Potassium Level 3.8, Chloride Level 104, Carbon Dioxide Level 25, Anion Gap 12, Blood Urea Nitrogen 41H, Creatinine 1.03, Estimat Glomerular Filtration Rate > 60, BUN/Creatinine Ratio 40, Glucose Level 150H, Calcium Level 7.9L, Phosphorus Level 4.5, Magnesium Level 2.5H 03/12/20 10:44: Glucometer 191H Microbiology 03/10/20 Urine Culture - Final, Complete NO GROWTH 03/09/20 Influenza Types A,B Antigen (TIANA) - Final, Complete 03/08/20 Blood Culture - Preliminary, Resulted Staph, Coag Neg ([employer]ISTANT) A/P-Cardiology Assessment/Admission Diagnosis Acute respiratory failure, AML, Pancytopenia, History of CAD/CABG Plan Acute respiratory failure, defer to the primary team. We will request an echocardiogram. AML, Dr. 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 Pancytopenia, History of CAD/CABG, stable. History of rheumatoid arthritis. Thank you for your consultation. Please call me if you have any questions. Susan Muñiz MD, FACP, FACC, FSCAI, FHRS, CCDS Interventional Cardiology Cardiac Electrophysiology Vascular Medicine and Endovascular Interventions Clinical Quality Measures DVT/VTE Risk/Contraindication: Risk Factor Score Per Nursin RFS Level Per Nursing on Admit: 4+=Very High Jessica MUÑIZ MD Mar 10, 2020 13:50
--- NOTE | 2020-03-10 14:06 | Progress Note ---
Subjective Subjective Date Seen by Provider: Mar 10, 2020 Time Seen by Provider: 08:33 Patient learned that he does not like BiPAP and refused it; he has been on HFNC since 2am. Patient reports he is doing a little better. He is hopeful that he will make it out of the hospital. Denies any new issues just the breathing one. Review of Systems General: No Chills, No Night Sweats HEENT: No Head Aches Pulmonary: Dyspnea, Cough Cardiovascular: Palpitations; No: Chest Pain Gastrointestinal: No: Nausea, Vomiting, Abdominal Pain Genitourinary: No Dysuria Musculoskeletal: No: neck pain Neurological: Weakness; No: Confusion Objective Exam Vital Signs Vital Signs Date Time Temp Pulse Resp B/P (MAP) Pulse Ox O2 Delivery O2 Flow Rate FiO2 03/10/20 12:37 85 03/10/20 12:00 36.3 03/10/20 12:00 85 42 119/62 (81) 92 Vapotherm 40.00 75.00 03/10/20 12:00 94 Vapotherm 40.00 70 03/10/20 11:42 Vapotherm 40.00 75.00 03/10/20 11:00 75 24 115/60 (78) 94 Vapotherm 40.00 60.00 03/10/20 10:31 Vapotherm 40.00 60.00 03/10/20 10:27 95 Vapotherm 40.00 70 03/10/20 10:00 88 39 120/60 (80) 90 Vapotherm 40.00 70.00 03/10/20 09:12 Vapotherm 40.00 70.00 03/10/20 09:00 80 30 120/58 (78) 95 Vapotherm 40.00 100.00 03/10/20 08:00 98 Vapotherm 35.00 90 03/10/20 08:00 81 30 126/63 (84) 94 Vapotherm 40.00 100.00 03/10/20 08:00 36.5 03/10/20 07:44 96 Vapotherm 40.00 100 03/10/20 07:00 92 54 138/70 (92) 91 Vapotherm 40.00 100.00 03/10/20 06:43 86 03/10/20 06:00 89 31 131/71 (91) 89 Vapotherm 40.00 100.00 03/10/20 06:00 Vapotherm 40.00 100.00 03/10/20 05:00 84 25 123/55 (77) 96 Vapotherm 35.00 85.00 03/10/20 04:00 36.8 Vapotherm 35.00 85.00 03/10/20 04:00 92 14 123/56 (78) 91 Vapotherm 35.00 85.00 03/10/20 03:15 92 Vapotherm 35.00 85 03/10/20 03:10 36.9 92 18 92 Vapotherm 35.00 85.00 03/10/20 03:00 89 24 120/58 (78) 96 Vapotherm 35.00 85.00 03/10/20 02:20 Vapotherm 35.00 85.00 03/10/20 02:00 86 24 124/62 (82) 94 NIV Bilevel 55.00 03/10/20 01:00 82 16 127/60 (82) 94 NIV Bilevel 55.00 03/10/20 00:56 87 03/10/20 00:00 77 22 112/50 (70) 95 NIV Bilevel 55.00 03/09/20 23:15 NIV Bilevel 55.00 03/09/20 23:10 95 NIV Bilevel 60 03/09/20 23:00 36.8 89 20 112/54 (73) 95 NIV Bilevel 60.00 03/09/20 22:00 87 12 123/56 (78) 95 NIV Bilevel 60.00 03/09/20 21:55 NIV Bilevel 60.00 03/09/20 21:28 90 Vapotherm 35.00 85 03/09/20 21:00 84 32 118/60 (79) 93 Vapotherm 35.00 85.00 03/09/20 20:00 36.6 03/09/20 20:00 86 33 114/55 (74) 95 Vapotherm 35.00 85.00 03/09/20 19:30 93 Vapotherm 35.00 85 03/09/20 19:00 91 03/09/20 19:00 88 34 117/61 (79) 93 Vapotherm 35.00 85.00 03/09/20 18:19 92 Vapotherm 35.00 85 03/09/20 18:05 87 37 102/41 (61) 93 Vapotherm 35.00 85.00 03/09/20 17:00 92 34 123/61 (81) 93 Vapotherm 35.00 85.00 03/09/20 16:00 36.4 03/09/20 15:13 79 24 110/49 (69) 93 Vapotherm 35.00 80.00 03/09/20 15:04 94 Vapotherm 75 03/09/20 14:11 95 Vapotherm 35.00 90 I & O 03/10/20 07:00 Intake Total 2935.0 ml Output Total 2630 ml Balance 305.0 ml General Appearance: Mild Distress Eyes: Bilateral Eye Normal Inspection, Bilateral Eye PERRL, Bilateral Eye EOMI HEENT: PERRL/EOMI Neck: Full Range of Motion, Non Tender Respiratory: Chest Non Tender, Decreased Breath Sounds, Respiratory Distress, Rhonci Cardiovascular: Regular Rate, Rhythm Gastrointestinal: Non Tender, Soft Rectal: Deferred Back: No CVA Tenderness Extremity: Normal Range of Motion, Non Tender, Pedal Edema Neurologic/Psychiatric: Alert, Oriented x3, Normal Mood/Affect Skin: Warm/Dry Results Lab Laboratory Tests 03/09/20 17:49: Glucometer 171H 03/09/20 23:04: Glucometer 155H 03/10/20 02:15: White Blood Count 6.4, Red Blood Count 2.27L, Hemoglobin 7.4L, Hematocrit 23L, Mean Corpuscular Volume 103H, Mean Corpuscular Hemoglobin 33, Mean Corpuscular Hemoglobin Concent 32, Red Cell Distribution Width 24.4H, Platelet Count 23*L, Mean Platelet Volume 10.1, Neutrophils (%) (Auto) 61, Lymphocytes (%) (Auto) 13, Monocytes (%) (Auto) 27H, Eosinophils (%) (Auto) 0, Basophils (%) (Auto) 0, Neutrophils # (Auto) 3.9, Lymphocytes # (Auto) 0.8L, Monocytes # (Auto) 1.7H, Eosinophils # (Auto) 0.0, Basophils # (Auto) 0.0, Sodium Level 141, Potassium Level 3.2L, Chloride Level 105, Carbon Dioxide Level 25, Anion Gap 11, Blood Urea Nitrogen 37H, Creatinine 1.16, Estimat Glomerular Filtration Rate > 60, BUN/Creatinine Ratio 32, Glucose Level 125H, Calcium Level 7.9L, Phosphorus Level 4.2, Magnesium Level 2.2, B-Type Natriuretic Peptide 404.9H, Vancomycin Level Trough 16.3 03/10/20 05:57: Urine Color BROWNH, Urine Clarity CLOUDY, Urine pH 6.0, Urine Specific Crenshaw 1.025H, Urine Protein 2+H, Urine Glucose (UA) NEGATIVE, Urine Ketones NEGATIVE, Urine Nitrite NEGATIVE, Urine Bilirubin 1+H, Urine Urobilinogen 4.0, Urine Leukocyte Esterase TRACEH, Urine RBC (Auto) 3+H, Urine RBC TNTCH, Urine WBC 2-5, Urine Squamous Epithelial Cells NONE, Urine Crystals NONE, Urine Bacteria FEWH, Urine Casts NONE, Urine Mucus SMALLH, Urine Trichomonas FEWH, Urine Culture Indicated YES 03/10/20 12:00: Glucometer 177H 03/10/20 13:01: Lab Scanned Report Transfusion Reaction Form Microbiology 03/09/20 Influenza Types A,B Antigen (TIANA) - Final, Complete 03/08/20 Urine Culture - Preliminary, Resulted Culture In Progress 03/08/20 Blood Culture - Preliminary, Resulted No growth Assessment/Plan Assessment/Plan Admission Dx acute hypoxic respiratory failure AML pancytopenia Assessment and Plan 03/08/20- admitted to ICU for AHRF 03/09/20- Platelets and hgb have trended down and he received both transfusion today. Transitioned to HFNC from BiPAP- panculture. broad spectrum antibiotics. vanc/zosyn, levoquin. -diuresing. COVID-19 negative. 03/10/20- Hgb, platelets improved with transfusion- still on broad spectrum antibiotics. He is still on HFNC will try to titrate settings. replacing electrolytes. strep and legionella still pending. Dispo: improving but could decompensate quickly. Problems: (1) Acute respiratory failure with hypoxia Assessment & Plan: respiratory therapy consult Dr. Lopes consult eICU following along. (2) AML (acute myeloblastic leukemia) (3) CAD (coronary artery disease), craig coronary artery Assessment & Plan: s/p CABG 2017 (4) Hypertension Admission Dx acute hypoxic respiratory failure AML pancytopenia Clinical Quality Measures Admission Status Admission Dx acute hypoxic respiratory failure AML pancytopenia DVT/VTE Risk/Contraindication: Risk Factor Score Per Nursin RFS Level Per Nursing on Admit: 4+=Very High AISSATOU MIRAMONTES MD Mar 10, 2020 14:06
--- NOTE | 2020-03-10 17:05 | Progress Note ---
Standard Progress Note Progress Notes/Assess & Plan Date Seen by a Provider: Mar 10, 2020 Time Seen by a Provider: 17:00 Progress/Assessment & Plan 75 yo male with severe chronic heart and lung disease and recently diagnosed AML was admitted on 03/08/20 for acute on chronic hypoxic respiratory failure secondary to pneumonia vs CHF vs combination of multiple factors. This afternoon, patient is still on high flow nasal cannula but oxygen requirements down from 100% to 65%. Patient also reports breathing easier. 1. Hypoxic respiratory failure. Symptomatically improved with antibiotics and diuretics, and oxygen requirements are also down. However, CXR this morning appears to show worsening infiltrates. 2. AML. Severe pancytopenia is secondary to malignancy, with smaller contribution to decitabine. No expectation for improvement in blood counts any time soon. He will need to be on prophylactic posaconazole and acyclovir in addition to his broad spectrum antibiotics. Posaconazole not available inpatient, so he was put on anidulafungin. After completion of antibiotic course, he should resume prophylactic levofloxacin. PPX antimicrobials are to continue indefinitely. Transfuse to keep hgb >8.0 due to his heart disease and platelets >10. 3. CAD. I think it is unlikely that decitabine is directly responsible for troponin elevation. Since he will need to be on posaconazole, it is preferred that he not be on a statin. If cardiology deems it necessary to be on a statin, rosuvastatin is least likely to interact with posaconazole. Focused Exam Lactate Level 03/08/20 16:40: Lactic Acid Level 1.22 DENNIS AMIN MD Mar 10, 2020 17:05
[2020-03-11] VITALS (24 sets, daily range): BP systolic 111–137; BP diastolic 47–64
[2020-03-11] MEDS: methylPREDNISolone 40 MG/ML (Solu-MEDROL) VIAL IV SCH ×5 (00:06→23:46)
[2020-03-11 02:05] LABS: BASOPHILS % (AUTO) 0 % (0-10); EOSINOPHILS % (AUTO) 0 % (0-10); HEMATOCRIT 23 % (40-54); HEMOGLOBIN 7.2 G/DL (13.3-17.7); LYMPHOCYTES # (AUTO) 0.4 X 10^3 (1.0-4.0); LYMPHOCYTES % (AUTO) 15 % (12-44); MEAN CORPUSCULAR HEMOGLOBIN 32 PG (25-34); MEAN CORPUSCULAR HGB CONC 31 G/DL (32-36); MEAN CORPUSCULAR VOLUME 103 FL (80-99); MEAN PLATELET VOLUME 9.5 FL (7.4-10.4); MONOCYTES # (AUTO) 0.2 X 10^3 (0.0-1.0); MONOCYTES % (AUTO) 9 % (0-12); NEUTROPHILS # (AUTO) 1.9 X 10^3 (1.8-7.8); NEUTROPHILS % (AUTO) 76 % (42-75); RED CELL DISTRIBUTION WIDTH 24.3 % (10.0-14.5); WHITE BLOOD COUNT 2.5 10^3/uL (4.3-11.0)
[2020-03-11 02:10] LABS: PLATELET COUNT 14 10^3/uL (130-400)
[2020-03-11 02:16] LABS: CHLORIDE 104 MMOL/L (98-107); POTASSIUM 3.7 MMOL/L (3.6-5.0); SODIUM 140 MMOL/L (135-145)
[2020-03-11 02:18] LABS: GLUCOSE 146 MG/DL (70-105)
[2020-03-11 02:19] LABS: CARBON DIOXIDE 25 MMOL/L (21-32)
[2020-03-11 02:21] LABS: PHOSPHORUS 4.1 MG/DL (2.3-4.7)
[2020-03-11 02:22] LABS: BUN/CREATININE RATIO 34; CREATININE SERUM 1.07 MG/DL (0.60-1.30); GFR ESTIMATED > 60
[2020-03-11 02:24] LABS: MAGNESIUM 2.3 MG/DL (1.6-2.4)
[2020-03-11] MEDS: RT-ALBUTEROL SULF 2.5 MG/3 ML PRE-MIX VIAL INH SCH ×6 (02:37→21:57)
[2020-03-11] MEDS: VANCOMYCIN 1250 MG/NS 250 ML IVPB IV SCH ×2 (03:50)
[2020-03-11] MEDS: MAGNESIUM 1 GM/100 ML IVPB 100 ML IV SCH (05:17)
[2020-03-11] MEDS: POTASSIUM CL 10MEQ/50ML IVPB 50 ML IV SCH (05:17)
[2020-03-11] MEDS: KCL 20 MEQ TAB (K-DUR) PO SCH (05:17)
[2020-03-11] MEDS: inSUlin ASPART (NovoLOG) 1 UNIT/0.01 ML (CHARGE PER UNIT) SC SCH ×4 (05:18→20:14)
--- NOTE | 2020-03-11 05:42 | Pulmonary Progress Note ---
Subjective Date Seen by a Provider: Mar 11, 2020 Time Seen by a Provider: 05:39 Subjective/Events-last exam Pt appears to be improving. Sepsis Event Evaluation Height, Weight, BMI Height: 6'0.00" Weight: 257lbs. 0.0oz. [id number]; 36.00 BMI Method:Stated Focused Exam Lactate Level 03/08/20 16:40: Lactic Acid Level 1.22 Exam Exam Vital Signs Date Time Temp Pulse Resp B/P (MAP) Pulse Ox O2 Delivery O2 Flow Rate FiO2 03/11/20 04:00 91 Vapotherm 40.00 75 03/11/20 04:00 88 27 135/63 (87) 99 Vapotherm 40.00 75.00 03/11/20 03:00 84 19 132/62 (85) 98 Vapotherm 40.00 75.00 03/11/20 02:37 97 Vapotherm 40.00 100 03/11/20 02:36 97 Vapotherm 40.00 100 03/11/20 02:00 87 23 121/61 (81) 97 Vapotherm 40.00 75.00 03/11/20 01:00 90 03/11/20 01:00 80 17 126/56 (79) 95 Vapotherm 40.00 75.00 03/11/20 00:07 36.3 03/11/20 00:07 91 Vapotherm 40.00 75 03/11/20 00:00 81 28 126/59 (81) 94 Vapotherm 40.00 75.00 03/10/20 23:00 86 29 127/62 (83) 93 Vapotherm 40.00 75.00 03/10/20 22:55 Vapotherm 40.00 75.00 03/10/20 22:07 97 Vapotherm 40.00 65 03/10/20 22:00 79 22 113/57 (75) 98 Vapotherm 40.00 65.00 03/10/20 21:00 90 34 125/61 (82) 95 Vapotherm 40.00 65.00 03/10/20 20:00 88 30 131/59 (83) 94 Vapotherm 40.00 65.00 03/10/20 19:57 96 Vapotherm 40.00 65 03/10/20 19:00 37.1 93 20 128/58 (81) 93 Vapotherm 40.00 65.00 03/10/20 19:00 88 03/10/20 18:22 95 Vapotherm 40.00 65 03/10/20 18:00 89 22 101/92 (95) 96 Vapotherm 40.00 65.00 03/10/20 17:00 93 38 126/68 (87) 92 Vapotherm 40.00 65.00 03/10/20 16:00 79 22 123/55 (77) 96 Vapotherm 40.00 65.00 03/10/20 16:00 96 Vapotherm 40.00 65 03/10/20 16:00 36.7 03/10/20 15:05 Vapotherm 40.00 65.00 03/10/20 15:00 86 13 124/60 (81) 90 Vapotherm 40.00 60.00 03/10/20 14:43 Vapotherm 40.00 60.00 03/10/20 14:20 95 Vapotherm 40.00 60 03/10/20 14:00 81 15 116/69 (85) 99 Vapotherm 40.00 75.00 03/10/20 13:00 81 30 116/65 (82) 97 Vapotherm 40.00 75.00 03/10/20 12:37 85 03/10/20 12:00 36.3 03/10/20 12:00 85 42 119/62 (81) 92 Vapotherm 40.00 75.00 03/10/20 12:00 94 Vapotherm 40.00 70 03/10/20 11:42 Vapotherm 40.00 75.00 03/10/20 11:00 75 24 115/60 (78) 94 Vapotherm 40.00 60.00 03/10/20 10:31 Vapotherm 40.00 60.00 03/10/20 10:27 95 Vapotherm 40.00 70 03/10/20 10:00 88 39 120/60 (80) 90 Vapotherm 40.00 70.00 03/10/20 09:12 Vapotherm 40.00 70.00 03/10/20 09:00 80 30 120/58 (78) 95 Vapotherm 40.00 100.00 03/10/20 08:00 98 Vapotherm 35.00 90 03/10/20 08:00 81 30 126/63 (84) 94 Vapotherm 40.00 100.00 03/10/20 08:00 36.5 03/10/20 07:44 96 Vapotherm 40.00 100 03/10/20 07:00 92 54 138/70 (92) 91 Vapotherm 40.00 100.00 03/10/20 06:43 86 03/10/20 06:00 89 31 131/71 (91) 89 Vapotherm 40.00 100.00 03/10/20 06:00 Vapotherm 40.00 100.00 I & O 03/11/20 07:00 Intake Total 1050 ml Output Total 3775 ml Balance -2725 ml Height & Weight Height: 6'0.00" Weight: 257lbs. 0.0oz. 116.900882hm; 36.00 BMI Method:Stated General Appearance: Mild Distress HEENT: PERRL/EOMI Neck: Full Range of Motion, Non Tender Respiratory: Chest Non Tender, Decreased Breath Sounds, Respiratory Distress, Rhonci Cardiovascular: Regular Rate, Rhythm Capillary Refill: Less Than 3 Seconds Gastrointestinal: non tender, soft Extremity: Normal Range of Motion, Non Tender, Pedal Edema Neurologic/Psychiatric: Alert, Oriented x3, Normal Mood/Affect Skin: Warm/Dry Results Lab Laboratory Tests 03/10/20 02:15 03/11/20 01:58 Assessment/Plan Assessment/Plan Acute respiratory failure -Currently on BiPAP -- pt improved after lasix yesterday. -BNP is elevated -Repeat Lasix and BNP -Currently no fever, no leukocytosis -Pt has double lumen picc line currently Bilateral infiltrates PNA vs pulmonary edema -No leukocyosis or fever -Navarro cultures pending -MRSA swab - negative -COVID is negative -Influenza -- negative -BNP is elevated at 359 with normal Cr -repeat echo last was 01/08 -Give 1mg of bumex Q12 -Currently on Zosyn and vancomycin - eraxis Hypokalemia -replace Pancytopenia -Transfuse 1 unit PRBC -Transfuse platelets -Oncology following Hx of leukemia -Oncology consulted Hypokalemia -Replace KINGA ALBRIGHT DO Mar 11, 2020 05:42
[2020-03-11] MEDS: CATHETER FLUSH 10 ML SYR IV SCH ×3 (06:01→23:46)
[2020-03-11] MEDS: BUMETANIDE 1 MG/4 ML (BUMEX) VIAL IV SCH ×3 (06:01→20:06)
[2020-03-11] MEDS: PIPERACILLIN/TAZOBACTAM (BULK) 4.5 GM in NS (IVPB) 100 ML IV SCH ×3 (06:02→23:46)
--- NOTE | 2020-03-11 07:00 | Diagnostic Imaging Report ---
Indication: Shortness of breath Portable chest 6:41 AM There are diffuse pulmonary infiltrates that are unchanged from the previous day's comparison exam. Patient's had prior CABG surgery. There are no effusions or pneumothoraces. IMPRESSION: Diffuse pulmonary infiltrates unchanged from the previous day. Dictated by: Dictated on workstation # [id number]
[2020-03-11] MEDS: ANIDULAFUNGIN INJECTION 100 MG in NS (IVPB) 100 ML IV SCH (08:47)
[2020-03-11] MEDS: PANTOPRAZOLE 40 MG (PROTONIX) VIAL IV SCH (08:47)
[2020-03-11] MEDS: ACYCLOVIR 400 MG TABLET (ZOVIRAX) PO SCH ×2 (08:48→20:07)
[2020-03-11] MEDS ORDERED: KCL 20 MEQ TAB (K-DUR) PO ONE (09:00)
[2020-03-11] MEDS: TAMSULOSIN 0.4 MG (FLOMAX) CAP PO SCH (09:01)
--- NOTE | 2020-03-11 22:06 | Progress Note ---
Subjective Subjective Date Seen by Provider: Mar 11, 2020 Time Seen by Provider: 08:50 Patient reports he is breathing better. No new issues. hgb, wbc, plt still low but not needing transfusion. Review of Systems General: No Chills, No Night Sweats HEENT: No Head Aches Pulmonary: Dyspnea, Cough Cardiovascular: No: Chest Pain, Palpitations Gastrointestinal: No: Nausea, Vomiting, Abdominal Pain Genitourinary: No Dysuria Musculoskeletal: No: neck pain Neurological: Weakness; No: Confusion Objective Exam Vital Signs Vital Signs Date Time Temp Pulse Resp B/P (MAP) Pulse Ox O2 Delivery O2 Flow Rate FiO2 03/11/20 21:56 97 Vapotherm 40.00 80 03/11/20 21:17 Vapotherm 40.00 80.00 03/11/20 21:00 95 22 132/62 (85) 90 Vapotherm 40.00 100.00 03/11/20 20:50 Vapotherm 40.00 100.00 03/11/20 20:00 95 31 124/57 (79) 91 Vapotherm 40.00 80.00 03/11/20 19:45 Vapotherm 40.00 80.00 03/11/20 19:33 Vapotherm 40.00 80 03/11/20 19:15 36.7 03/11/20 19:00 93 03/11/20 19:00 92 15 123/54 (77) 97 Vapotherm 40.00 75.00 03/11/20 18:17 90 Vapotherm 40.00 80 03/11/20 18:00 89 26 129/61 (83) 90 Vapotherm 40.00 75.00 03/11/20 17:00 105 39 126/47 (73) 90 Vapotherm 40.00 75.00 03/11/20 16:00 100 30 93 Vapotherm 40.00 75.00 03/11/20 16:00 96 Vapotherm 40.00 75 03/11/20 15:22 36.3 03/11/20 15:00 97 28 129/56 (80) 95 Vapotherm 40.00 75.00 03/11/20 14:00 99 30 122/64 (83) 92 Vapotherm 40.00 75.00 03/11/20 13:42 91 Vapotherm 40.00 80 03/11/20 13:00 87 19 121/58 (79) 94 Vapotherm 40.00 75.00 03/11/20 12:23 85 03/11/20 12:00 96 Vapotherm 40.00 75 03/11/20 12:00 81 15 127/62 (83) 97 Vapotherm 40.00 75.00 03/11/20 12:00 36.8 03/11/20 11:00 96 32 127/54 (78) 91 Vapotherm 40.00 75.00 03/11/20 10:29 95 Vapotherm 40.00 80 03/11/20 10:00 83 21 127/53 (77) 97 Vapotherm 40.00 75.00 03/11/20 09:24 36.6 96 90 03/11/20 09:00 85 111/52 (71) 91 Vapotherm 40.00 75.00 03/11/20 08:00 102 123/61 (81) 91 Vapotherm 40.00 75.00 03/11/20 08:00 36.6 03/11/20 07:51 96 Vapotherm 40.00 75 03/11/20 07:00 92 03/11/20 07:00 99 31 135/60 (85) 95 Vapotherm 40.00 75.00 03/11/20 06:25 94 Vapotherm 40.00 75 03/11/20 06:00 81 20 125/57 (79) 97 Vapotherm 40.00 75.00 03/11/20 05:00 85 22 137/57 (83) 100 Vapotherm 40.00 75.00 03/11/20 04:00 91 Vapotherm 40.00 75 03/11/20 04:00 88 27 135/63 (87) 99 Vapotherm 40.00 75.00 03/11/20 03:00 84 19 132/62 (85) 98 Vapotherm 40.00 75.00 03/11/20 02:37 97 Vapotherm 40.00 100 03/11/20 02:36 97 Vapotherm 40.00 100 03/11/20 02:00 87 23 121/61 (81) 97 Vapotherm 40.00 75.00 03/11/20 01:00 90 03/11/20 01:00 80 17 126/56 (79) 95 Vapotherm 40.00 75.00 03/11/20 00:07 36.3 03/11/20 00:07 91 Vapotherm 40.00 75 03/11/20 00:00 81 28 126/59 (81) 94 Vapotherm 40.00 75.00 03/10/20 23:00 86 29 127/62 (83) 93 Vapotherm 40.00 75.00 03/10/20 22:55 Vapotherm 40.00 75.00 03/10/20 22:07 97 Vapotherm 40.00 65 I & O 03/11/20 07:00 Intake Total 1100 ml Output Total 4065 ml Balance -2965 ml General Appearance: Mild Distress Eyes: Bilateral Eye Normal Inspection, Bilateral Eye PERRL, Bilateral Eye EOMI HEENT: PERRL/EOMI Neck: Full Range of Motion, Non Tender Respiratory: Chest Non Tender, Decreased Breath Sounds, Respiratory Distress, Rhonci Cardiovascular: Regular Rate, Rhythm Gastrointestinal: Non Tender, Soft Rectal: Deferred Back: No CVA Tenderness Extremity: Normal Range of Motion, Non Tender, Pedal Edema Neurologic/Psychiatric: Alert, Oriented x3, Normal Mood/Affect Skin: Warm/Dry Results Lab Laboratory Tests 03/11/20 01:58: White Blood Count 2.5L, Red Blood Count 2.22L, Hemoglobin 7.2L, Hematocrit 23L, Mean Corpuscular Volume 103H, Mean Corpuscular Hemoglobin 32, Mean Corpuscular Hemoglobin Concent 31L, Red Cell Distribution Width 24.3H, Platelet Count 14*L, Mean Platelet Volume 9.5, Neutrophils (%) (Auto) 76H, Lymphocytes (%) (Auto) 15, Monocytes (%) (Auto) 9, Eosinophils (%) (Auto) 0, Basophils (%) (Auto) 0, Neutrophils # (Auto) 1.9, Lymphocytes # (Auto) 0.4L, Monocytes # (Auto) 0.2, Eosinophils # (Auto) 0.0, Basophils # (Auto) 0.0, Sodium Level 140, Potassium Level 3.7, Chloride Level 104, Carbon Dioxide Level 25, Anion Gap 11, Blood Urea Nitrogen 36H, Creatinine 1.07, Estimat Glomerular Filtration Rate > 60, BUN/Creatinine Ratio 34, Glucose Level 146H, Calcium Level 8.0L, Phosphorus Level 4.1, Magnesium Level 2.3 03/11/20 10:45: Glucometer 229H 03/11/20 15:57: Glucometer 306H 03/11/20 20:12: Glucometer 220H Microbiology 03/10/20 Urine Culture - Final, Complete NO GROWTH 03/09/20 Influenza Types A,B Antigen (TIANA) - Final, Complete 03/08/20 Blood Culture - Preliminary, Resulted Staph, Coag Neg ([place]) Assessment/Plan Assessment/Plan Admission Dx acute hypoxic respiratory failure AML pancytopenia Assessment and Plan 03/08/20- admitted to ICU for AHRF 03/09/20- Platelets and hgb have trended down and he received both transfusion today. Transitioned to HFNC from BiPAP- panculture. broad spectrum antibiotics. vanc/zosyn, levoquin. -diuresing. COVID-19 negative. 03/10/20- Hgb, platelets improved with transfusion- still on broad spectrum antibiotics. He is still on HFNC will try to titrate settings. replacing electrolytes. strep and legionella negative. 03/11/20- still working on respiratory status- he is on HFNC- he is getting steroids as well as antibiotics. monitor cbc Dispo: improving but could decompensate quickly. Problems: (1) Acute respiratory failure with hypoxia Assessment & Plan: respiratory therapy consult Dr. Lopes consult eICU following along. (2) AML (acute myeloblastic leukemia) (3) CAD (coronary artery disease), [place] coronary artery Assessment & Plan: s/p CABG 2017 (4) Hypertension Admission Dx acute hypoxic respiratory failure AML pancytopenia Clinical Quality Measures Admission Status Admission Dx acute hypoxic respiratory failure AML pancytopenia DVT/VTE Risk/Contraindication: Risk Factor Score Per Nursin RFS Level Per Nursing on Admit: 4+=Very High AISSATOU MIRAMONTES MD Mar 11, 2020 22:06
--- NOTE | 2020-03-11 22:24 | Cardiology Progress Note ---
Cardiology SOAP Progress Note Subjective: Complains of shortness of breath. Objective: I&O/Vital Signs 03/12/20 03/12/20 03/12/20 03/12/20 03:35 04:00 04:20 05:00 Pulse 82 82 Resp 22 21 B/P (MAP) 122/56 (78) 125/59 (81) Pulse Ox 89 91 O2 Delivery Vapotherm Vapotherm NIV Bilevel NIV Bilevel O2 Flow Rate 40.00 40.00 55.00 55.00 100.00 FiO2 100 03/12/20 03/12/20 03/12/20 03/12/20 06:00 06:40 06:41 07:00 Pulse 86 98 90 Resp 22 B/P (MAP) 134/58 (83) 125/64 (84) Pulse Ox 91 91 O2 Delivery NIV Bilevel NIV Bilevel NIV Bilevel O2 Flow Rate 55.00 65.00 65.00 03/12/20 03/12/20 03/12/20 03/12/20 07:02 07:57 08:00 08:00 Temp 36.2 Pulse 93 93 Resp 25 29 B/P (MAP) 124/57 (79) Pulse Ox 93 93 O2 Delivery NIV Bilevel NIV Bilevel O2 Flow Rate 65.00 65.00 FiO2 65 03/12/20 03/12/20 03/12/20 03/12/20 09:00 10:00 10:27 10:38 Pulse 92 89 93 Resp 35 15 23 B/P (MAP) 135/59 (84) 130/68 (88) Pulse Ox 98 98 98 O2 Delivery NIV Bilevel NIV Bilevel NIV Bilevel O2 Flow Rate 65.00 65.00 100.00 80.00 03/12/20 03/12/20 03/12/20 03/12/20 11:00 12:00 12:00 12:38 Temp 36.8 Pulse 92 88 88 Resp 18 21 B/P (MAP) 118/59 (78) 121/57 (78) Pulse Ox 96 95 O2 Delivery NIV Bilevel NIV Bilevel O2 Flow Rate 80.00 80.00 03/12/20 03/12/20 03/12/20 03/12/20 13:00 14:00 15:06 15:09 Pulse 90 84 93 Resp 18 20 26 B/P (MAP) 120/62 (81) 120/57 (78) Pulse Ox 97 97 98 O2 Delivery NIV Bilevel NIV Bilevel NIV Bilevel O2 Flow Rate 80.00 80.00 80.00 60.00 03/11/20 23:59 Intake Total 935 ml Output Total 1600 ml Balance -665 ml Weight (Pounds): 257 Weight (Ounces): 0.0 Weight (Calculated Kilograms): 116.838703 Constitutional: AAO x 3 Respiratory: respiratory distress, chest is bilaterally symmetric, other (Decreased breath sounds bilaterally.) Cardiovascular: regular rate-rhythm, S1 and S2 Gastrointestional: soft, audible bowel sounds Extremities: normal range of motion, non-tender, normal inspection Neurologic/Psychiatric: no motor/sensory deficits, alert, normal mood/affect, oriented x 3 Skin: pallor Results/Procedures: Labs Laboratory Tests 03/11/20 15:57: Glucometer 306H 03/11/20 20:12: Glucometer 220H 03/12/20 02:57: White Blood Count 4.1L, Red Blood Count 2.34L, Hemoglobin 7.6L, Hematocrit 25L, Mean Corpuscular Volume 105H, Mean Corpuscular Hemoglobin 32, Mean Corpuscular Hemoglobin Concent 31L, Red Cell Distribution Width 24.2H, Platelet Count 11*L, Mean Platelet Volume 10.2, Neutrophils (%) (Auto) 82H, Lymphocytes (%) (Auto) 9L , Monocytes (%) (Auto) 9, Eosinophils (%) (Auto) 0, Basophils (%) (Auto) 0, Neutrophils # (Auto) 3.3, Lymphocytes # (Auto) 0.4L, Monocytes # (Auto) 0.4, Eosinophils # (Auto) 0.0, Basophils # (Auto) 0.0, Sodium Level 141, Potassium Level 3.8, Chloride Level 104, Carbon Dioxide Level 25, Anion Gap 12, Blood Urea Nitrogen 41H, Creatinine 1.03, Estimat Glomerular Filtration Rate > 60, BUN/Creatinine Ratio 40, Glucose Level 150H, Calcium Level 7.9L, Phosphorus Level 4.5, Magnesium Level 2.5H 03/12/20 10:44: Glucometer 191H Microbiology 03/10/20 Urine Culture - Final, Complete NO GROWTH 03/09/20 Influenza Types A,B Antigen (TIANA) - Final, Complete 03/08/20 Blood Culture - Preliminary, Resulted Staph, Coag Neg ([employer]) A/P: Assessment/Dx: Acute respiratory failure, AML, Pancytopenia, History of CAD/CABG Plan: Acute respiratory failure, defer to the primary team. We will request an echocardiogram. AML, Dr. 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 Pancytopenia, History of CAD/CABG, stable. History of rheumatoid arthritis. Thank you for your consultation. Please call me if you have any questions. Susan Muñiz MD, FACP, FACC, FSCAI, FHRS, CCDS Interventional Cardiology Cardiac Electrophysiology Vascular Medicine and Endovascular Interventions Jessica MUÑIZ MD Mar 11, 2020 22:24
[2020-03-12] VITALS (29 sets, daily range): BP systolic 114–135; BP diastolic 51–88
--- NOTE | 2020-03-12 00:55 | NUR ---
THIS RN CALLED TELEICU TO INFORM DR. DUMONT OF PT DESATTURATION ON VAPOTHERM. THIS RN NOTIFIED DR. DUMONT THAT PT AGREED TO WEAR THE BIPAP BUT THAT HE IS VERY ANXIOUS AND HAS NO ANXIOLYTICS ORDERED. THIS RN ALSO INFORMED DR. DUMONT THAT PT REQUESTS NOT TO BE INTUBATED AND NO TRACHEOSTOMY IF IT WERE NEEDED; PT DOES REQUEST CHEST COMPRESSIONS IN THE INSTANCE THAT THEY ARE NEEDED.
[2020-03-12] MEDS: LORazepam INJ 2 MG/ML (ATIVAN) VIAL IVP PRN (01:23)
[2020-03-12] MEDS: RT-ALBUTEROL SULF 2.5 MG/3 ML PRE-MIX VIAL INH SCH ×6 (02:39→21:57)
[2020-03-12 03:29] LABS: BASOPHILS % (AUTO) 0 % (0-10); EOSINOPHILS % (AUTO) 0 % (0-10); HEMATOCRIT 25 % (40-54); HEMOGLOBIN 7.6 G/DL (13.3-17.7); LYMPHOCYTES # (AUTO) 0.4 X 10^3 (1.0-4.0); LYMPHOCYTES % (AUTO) 9 % (12-44); MEAN CORPUSCULAR HGB CONC 31 G/DL (32-36); MEAN CORPUSCULAR VOLUME 105 FL (80-99); MEAN PLATELET VOLUME 10.2 FL (7.4-10.4); MONOCYTES # (AUTO) 0.4 X 10^3 (0.0-1.0); MONOCYTES % (AUTO) 9 % (0-12); NEUTROPHILS # (AUTO) 3.3 X 10^3 (1.8-7.8); NEUTROPHILS % (AUTO) 82 % (42-75); RED CELL DISTRIBUTION WIDTH 24.2 % (10.0-14.5); WHITE BLOOD COUNT 4.1 10^3/uL (4.3-11.0)
[2020-03-12 04:05] LABS: MEAN CORPUSCULAR HEMOGLOBIN 32 PG (25-34)
[2020-03-12 04:07] LABS: PLATELET COUNT 11 10^3/uL (130-400)
[2020-03-12 04:21] LABS: BUN/CREATININE RATIO 40; CALCIUM 7.9 MG/DL (8.5-10.1); CARBON DIOXIDE 25 MMOL/L (21-32); CHLORIDE 104 MMOL/L (98-107); CREATININE SERUM 1.03 MG/DL (0.60-1.30); GFR ESTIMATED > 60; GLUCOSE 150 MG/DL (70-105); MAGNESIUM 2.5 MG/DL (1.6-2.4); PHOSPHORUS 4.5 MG/DL (2.3-4.7); POTASSIUM 3.8 MMOL/L (3.6-5.0); SODIUM 141 MMOL/L (135-145)
[2020-03-12] MEDS: MAGNESIUM 1 GM/100 ML IVPB 100 ML IV SCH (04:24)
[2020-03-12] MEDS: POTASSIUM CL 10MEQ/50ML IVPB 50 ML IV SCH (04:24)
[2020-03-12] MEDS: KCL 20 MEQ TAB (K-DUR) PO SCH (04:24)
--- NOTE | 2020-03-12 05:24 | Pulmonary Progress Note ---
Subjective Time Seen by a Provider: 05:06 Subjective/Events-last exam Pt is requiring BiPAP. He does not do well on Vapotherm. Sepsis Event Evaluation Height, Weight, BMI Height: 6'0.00" Weight: 257lbs. 0.0oz. [id number]; 36.00 BMI Method:Stated Exam Exam Vital Signs Date Time Temp Pulse Resp B/P (MAP) Pulse Ox O2 Delivery O2 Flow Rate FiO2 03/12/20 04:20 NIV Bilevel 55.00 03/12/20 04:00 82 22 122/56 (78) 89 Vapotherm 40.00 100.00 03/12/20 03:35 Vapotherm 40.00 100 03/12/20 03:00 81 20 127/61 (83) 94 Vapotherm 40.00 100.00 03/12/20 02:40 93 Vapotherm 40.00 80 03/12/20 02:38 Vapotherm 40.00 100.00 03/12/20 02:00 87 12 114/56 (75) 95 NIV Bilevel 55.00 03/12/20 01:00 93 03/12/20 01:00 92 25 129/63 (85) 94 NIV Bilevel 55.00 03/12/20 00:56 84 24 92 55.00 03/12/20 00:45 NIV Bilevel 55.00 03/12/20 00:34 Vapotherm 40.00 80 03/12/20 00:34 36.4 03/12/20 00:33 Vapotherm 40.00 85.00 03/12/20 00:00 84 23 123/55 (77) 93 Vapotherm 40.00 80.00 03/11/20 23:00 84 21 126/53 (77) 94 Vapotherm 40.00 80.00 03/11/20 22:00 82 19 121/56 (77) 97 Vapotherm 40.00 80.00 03/11/20 21:56 97 Vapotherm 40.00 80 03/11/20 21:17 Vapotherm 40.00 80.00 03/11/20 21:00 95 22 132/62 (85) 90 Vapotherm 40.00 100.00 03/11/20 20:50 Vapotherm 40.00 100.00 03/11/20 20:00 95 31 124/57 (79) 91 Vapotherm 40.00 80.00 03/11/20 19:45 Vapotherm 40.00 80.00 03/11/20 19:33 Vapotherm 40.00 80 03/11/20 19:15 36.7 03/11/20 19:00 93 03/11/20 19:00 92 15 123/54 (77) 97 Vapotherm 40.00 75.00 03/11/20 18:17 90 Vapotherm 40.00 80 03/11/20 18:00 89 26 129/61 (83) 90 Vapotherm 40.00 75.00 03/11/20 17:00 105 39 126/47 (73) 90 Vapotherm 40.00 75.00 03/11/20 16:00 100 30 93 Vapotherm 40.00 75.00 03/11/20 16:00 96 Vapotherm 40.00 75 03/11/20 15:22 36.3 03/11/20 15:00 97 28 129/56 (80) 95 Vapotherm 40.00 75.00 03/11/20 14:00 99 30 122/64 (83) 92 Vapotherm 40.00 75.00 03/11/20 13:42 91 Vapotherm 40.00 80 03/11/20 13:00 87 19 121/58 (79) 94 Vapotherm 40.00 75.00 03/11/20 12:23 85 03/11/20 12:00 96 Vapotherm 40.00 75 03/11/20 12:00 81 15 127/62 (83) 97 Vapotherm 40.00 75.00 03/11/20 12:00 36.8 03/11/20 11:00 96 32 127/54 (78) 91 Vapotherm 40.00 75.00 03/11/20 10:29 95 Vapotherm 40.00 80 03/11/20 10:00 83 21 127/53 (77) 97 Vapotherm 40.00 75.00 03/11/20 09:24 36.6 96 90 03/11/20 09:00 85 111/52 (71) 91 Vapotherm 40.00 75.00 03/11/20 08:00 102 123/61 (81) 91 Vapotherm 40.00 75.00 03/11/20 08:00 36.6 4/23/20 07:51 96 Vapotherm 40.00 75 03/11/20 07:00 92 03/11/20 07:00 99 31 135/60 (85) 95 Vapotherm 40.00 75.00 03/11/20 06:25 94 Vapotherm 40.00 75 03/11/20 06:00 81 20 125/57 (79) 97 Vapotherm 40.00 75.00 I & O 03/12/20 07:00 Intake Total 2275 ml Output Total 2375 ml Balance -100 ml Height & Weight Height: 6'0.00" Weight: 257lbs. 0.0oz. 116.848981hr; 36.00 BMI Method:Stated General Appearance: Moderate Distress HEENT: PERRL/EOMI Neck: Full Range of Motion, Non Tender Respiratory: Chest Non Tender, Decreased Breath Sounds, Respiratory Distress, Rhonci Cardiovascular: Regular Rate, Rhythm Capillary Refill: Less Than 3 Seconds Gastrointestinal: non tender, soft Extremity: Normal Range of Motion, Non Tender, Pedal Edema Neurologic/Psychiatric: Alert, Oriented x3, Normal Mood/Affect Skin: Warm/Dry Results Lab Laboratory Tests 03/11/20 01:58 03/12/20 02:57 Assessment/Plan Assessment/Plan Acute respiratory failure - pt is requiring more oxygen today. -Currently on BiPAP -- pt improved after lasix yesterday. -BNP is elevated -give 2mg of bumex this AM -Currently no fever, no leukocytosis -Pt has double lumen picc line currently -Pt does not want ventilator. He does not want chest compressions. I d iscussed with pt all options including intubation and comfort care only. He wants to be full DNR. He is going to discuss with his regarding comfort care only. Bilateral infiltrates PNA vs pulmonary edema -No leukocyosis or fever -[place] cultures pending -MRSA swab - negative -COVID is negative -Influenza -- negative -BNP is elevated at 359 with normal Cr -repeat echo last was 01/08 -Give 1mg of bumex Q12 -Currently on Zosyn - eraxis Pancytopenia -Transfuse platelets -Oncology following Hx of leukemia -Oncology consulted Hypokalemia -Replace KINGA ALBRIGHT DO Mar 12, 2020 05:24
--- NOTE | 2020-03-12 05:25 | NUR ---
DR. ALBRIGHT AT PT BEDSIDE WITH THIS RN TO DISCUSS OPTIONS FOR MAINTAINING OXYGENATION AND COMFORT. PT STATED HE ABSOLUTELY DOES NOT WANTED INTUBATED. DR. ALBRIGHT DISCUSSED DNR/DNI AND COMFORT CARE OPTIONS WITH PT. PT REQUESTED CODE STATUS CHANGE TO DNR. ORDER PLACED BY DR. ALBRIGHT.
[2020-03-12] MEDS ORDERED: BUMETANIDE 1 MG/4 ML (BUMEX) VIAL IV ONE (05:30)
[2020-03-12] MEDS: methylPREDNISolone 40 MG/ML (Solu-MEDROL) VIAL IV SCH ×4 (05:34→23:01)
[2020-03-12] MEDS: BUMETANIDE 1 MG/4 ML (BUMEX) VIAL IV SCH ×2 (05:34→20:18)
[2020-03-12] MEDS: inSUlin ASPART (NovoLOG) 1 UNIT/0.01 ML (CHARGE PER UNIT) SC SCH ×4 (05:36→20:19)
--- NOTE | 2020-03-12 05:42 | NUR ---
0900 DOSE OF BUMEX 1MG IV GIVEN BY THIS RN PER DR. ALBRIGHT'S VERBAL ORDER.
--- NOTE | 2020-03-12 06:53 | Diagnostic Imaging Report ---
INDICATION: Pneumonia. Comparison made with prior examination from 03/11/2020 FINDINGS: The heart size is normal. There has been a previous median sternotomy and coronary bypass graft. There is bilateral airspace disease. There is no pneumothorax. Mediastinum is unremarkable. There is a right pleural effusion. IMPRESSION: Persistent diffuse bilateral airspace disease with a right pleural effusion. Dictated by: Dictated on workstation # [id number]
[2020-03-12] MEDS: CATHETER FLUSH 10 ML SYR IV SCH ×3 (08:09→21:13)
[2020-03-12] MEDS: PIPERACILLIN/TAZOBACTAM (BULK) 4.5 GM in NS (IVPB) 100 ML IV SCH ×3 (08:09→21:13)
[2020-03-12] MEDS: TAMSULOSIN 0.4 MG (FLOMAX) CAP PO SCH (08:10)
[2020-03-12] MEDS: PANTOPRAZOLE 40 MG (PROTONIX) VIAL IV SCH (08:10)
[2020-03-12] MEDS: ACYCLOVIR 400 MG TABLET (ZOVIRAX) PO SCH ×2 (08:11→20:18)
--- NOTE | 2020-03-12 09:02 | NUR ---
Hospice Consult received for this patient who has newly dx of AML has undergone 1 round of chemotherapy, who is admitted to the hospital for Pneumonia and SOB. He has progressed in his Oxygen needs and now is on BiPAP. He had verbalized to the nurse that he wants to take the mask off and be made comfortable. I was called up to ICU to confirm his decision regarding CCMO. Which I did. After my conversation with him he has decided to continue with aggressive care including BiPAP with the desire to wean off of the BiPAP and get back to the [place] administration. He would like to try the chemotherapy again in attempt to control his AML. IF all of this aggressive therapy fails he ultimately would like to go home with hospice but understands he may pass here in the hospital. He is wanting to eat and drink orange juice. Educated him on the difficulty with taking the mask off to eat and he understands but would really like a cold drink of orange juice. I will call and talk to his S.Nadege Meza regarding our discussion at patient's request. Nurse updated on conversation. Addendum: 03/12/20 at 0940 by SAGE SRIVASTAVA RN I was able to get in touch with Susana, patient's significant other. I updated her on patient's wishes and the current POC for continued aggressive management. I let her know that patient does not want to be intubated or have chest compressions confirmed in our conversation previously. She is tearful but accepting of the information. Suggested FACE TIME option to be able to discuss with him his wishes...she reports not having that capability. Will continue current treatment for now and deescalate as needed or requested by patient.
[2020-03-12] MEDS: ANIDULAFUNGIN INJECTION 100 MG in NS (IVPB) 100 ML IV SCH (09:32)
--- NOTE | 2020-03-12 12:12 | NUR ---
Pastoral care visit, w/pt, he shared that he has strong maria isabel in God and has hope in Drs and medicine but expressed comfort in whatever direction things go. I had prayer with pt and he asked me to call his SO Susana and let her know we talked and such. I called Susana, [phone] and share of our conversation and offered encouragement to her. She requested an update from RN a couple times a day if possible, I conveyed this to RN.
--- NOTE | 2020-03-12 12:57 | Progress Note ---
Subjective Subjective Date Seen by Provider: Mar 12, 2020 Time Seen by Provider: 11:30 Patient would like to stop intervention and let what happens, happen. Palliative nurse spoke with patient and he decided he will continue with current medical care for 24 hours then re-assess if he is not better he wants to be placed on palliative care. Review of Systems General: No Chills, No Night Sweats HEENT: No Head Aches Pulmonary: Dyspnea, Cough Cardiovascular: No: Chest Pain, Palpitations Gastrointestinal: No: Nausea, Vomiting, Abdominal Pain Genitourinary: No Dysuria Musculoskeletal: No: neck pain Neurological: Weakness; No: Confusion Objective Exam Vital Signs Vital Signs Date Time Temp Pulse Resp B/P (MAP) Pulse Ox O2 Delivery O2 Flow Rate FiO2 03/12/20 12:00 36.8 03/12/20 11:00 92 18 118/59 (78) 96 NIV Bilevel 80.00 03/12/20 10:38 NIV Bilevel 80.00 03/12/20 10:27 93 23 98 100.00 03/12/20 10:00 89 15 130/68 (88) 98 NIV Bilevel 65.00 03/12/20 09:00 92 35 135/59 (84) 98 NIV Bilevel 65.00 03/12/20 08:00 NIV Bilevel 65 03/12/20 08:00 93 29 124/57 (79) 93 NIV Bilevel 65.00 03/12/20 07:57 36.2 03/12/20 07:02 93 25 93 65.00 03/12/20 07:00 90 22 125/64 (84) 91 NIV Bilevel 65.00 03/12/20 06:41 NIV Bilevel 65.00 03/12/20 06:40 98 03/12/20 06:00 86 19 134/58 (83) 91 NIV Bilevel 55.00 03/12/20 05:00 82 21 125/59 (81) 91 NIV Bilevel 55.00 03/12/20 04:20 NIV Bilevel 55.00 03/12/20 04:00 82 22 122/56 (78) 89 Vapotherm 40.00 100.00 03/12/20 03:35 Vapotherm 40.00 100 03/12/20 03:00 81 20 127/61 (83) 94 Vapotherm 40.00 100.00 03/12/20 02:40 93 Vapotherm 40.00 80 03/12/20 02:38 Vapotherm 40.00 100.00 03/12/20 02:00 87 12 114/56 (75) 95 NIV Bilevel 55.00 03/12/20 01:00 93 03/12/20 01:00 92 25 129/63 (85) 94 NIV Bilevel 55.00 03/12/20 00:56 84 24 92 55.00 03/12/20 00:45 NIV Bilevel 55.00 03/12/20 00:34 Vapotherm 40.00 80 03/12/20 00:34 36.4 03/12/20 00:33 Vapotherm 40.00 85.00 03/12/20 00:00 84 23 123/55 (77) 93 Vapotherm 40.00 80.00 03/11/20 23:00 84 21 126/53 (77) 94 Vapotherm 40.00 80.00 03/11/20 22:00 82 19 121/56 (77) 97 Vapotherm 40.00 80.00 03/11/20 21:56 97 Vapotherm 40.00 80 03/11/20 21:17 Vapotherm 40.00 80.00 03/11/20 21:00 95 22 132/62 (85) 90 Vapotherm 40.00 100.00 03/11/20 20:50 Vapotherm 40.00 100.00 03/11/20 20:00 95 31 124/57 (79) 91 Vapotherm 40.00 80.00 03/11/20 19:45 Vapotherm 40.00 80.00 03/11/20 19:33 Vapotherm 40.00 80 03/11/20 19:15 36.7 03/11/20 19:00 93 03/11/20 19:00 92 15 123/54 (77) 97 Vapotherm 40.00 75.00 03/11/20 18:17 90 Vapotherm 40.00 80 03/11/20 18:00 89 26 129/61 (83) 90 Vapotherm 40.00 75.00 03/11/20 17:00 105 39 126/47 (73) 90 Vapotherm 40.00 75.00 03/11/20 16:00 100 30 93 Vapotherm 40.00 75.00 03/11/20 16:00 96 Vapotherm 40.00 75 03/11/20 15:22 36.3 03/11/20 15:00 97 28 129/56 (80) 95 Vapotherm 40.00 75.00 03/11/20 14:00 99 30 122/64 (83) 92 Vapotherm 40.00 75.00 03/11/20 13:42 91 Vapotherm 40.00 80 03/11/20 13:00 87 19 121/58 (79) 94 Vapotherm 40.00 75.00 I & O 03/12/20 07:00 Intake Total 2275 ml Output Total 2565 ml Balance -290 ml General Appearance: Moderate Distress Eyes: Bilateral Eye Normal Inspection, Bilateral Eye PERRL, Bilateral Eye EOMI HEENT: PERRL/EOMI Neck: Full Range of Motion, Non Tender Respiratory: Chest Non Tender, Decreased Breath Sounds, Respiratory Distress, Rhonci Cardiovascular: Regular Rate, Rhythm Gastrointestinal: Non Tender, Soft Rectal: Deferred Back: No CVA Tenderness Extremity: Normal Range of Motion, Non Tender, Pedal Edema Neurologic/Psychiatric: Alert, Oriented x3, Normal Mood/Affect Skin: Warm/Dry Results Lab Laboratory Tests 03/11/20 15:57: Glucometer 306H 03/11/20 20:12: Glucometer 220H 03/12/20 02:57: White Blood Count 4.1L, Red Blood Count 2.34L, Hemoglobin 7.6L, Hematocrit 25L, Mean Corpuscular Volume 105H, Mean Corpuscular Hemoglobin 32, Mean Corpuscular Hemoglobin Concent 31L, Red Cell Distribution Width 24.2H, Platelet Count 11*L, Mean Platelet Volume 10.2, Neutrophils (%) (Auto) 82H, Lymphocytes (%) (Auto) 9L , Monocytes (%) (Auto) 9, Eosinophils (%) (Auto) 0, Basophils (%) (Auto) 0, Neutrophils # (Auto) 3.3, Lymphocytes # (Auto) 0.4L, Monocytes # (Auto) 0.4, Eosinophils # (Auto) 0.0, Basophils # (Auto) 0.0, Sodium Level 141, Potassium Level 3.8, Chloride Level 104, Carbon Dioxide Level 25, Anion Gap 12, Blood Urea Nitrogen 41H, Creatinine 1.03, Estimat Glomerular Filtration Rate > 60, BUN/Creatinine Ratio 40, Glucose Level 150H, Calcium Level 7.9L, Phosphorus Level 4.5, Magnesium Level 2.5H 03/12/20 10:44: Glucometer 191H Microbiology 03/10/20 Urine Culture - Final, Complete NO GROWTH 03/09/20 Influenza Types A,B Antigen (TIANA) - Final, Complete 03/08/20 Blood Culture - Preliminary, Resulted Staph, Coag Neg ([employer]) Assessment/Plan Assessment/Plan Admission Dx acute hypoxic respiratory failure AML pancytopenia Assessment and Plan 03/08/20- admitted to ICU for AHRF 03/09/20- Platelets and hgb have trended down and he received both transfusion today. Transitioned to HFNC from BiPAP- panculture. broad spectrum antibiotics. vanc/zosyn, levoquin. -diuresing. COVID-19 negative. 03/10/20- Hgb, platelets improved with transfusion- still on broad spectrum antibiotics. He is still on HFNC will try to titrate settings. replacing electrolytes. strep and legionella negative. 03/11/20- still working on respiratory status- he is on HFNC- he is getting steroids as well as antibiotics. monitor cbc 03/12/20- DNR now. Waiting 24hours with bipap and current care- if not better he wants to stop care and see what happens- he understands that he is likely to decompensate and . He would like to go home and . Problems: (1) Acute respiratory failure with hypoxia Assessment & Plan: respiratory therapy consult Dr. Lopes consult eICU following along. (2) AML (acute myeloblastic leukemia) (3) CAD (coronary artery disease), [place] coronary artery Assessment & Plan: s/p CABG 2017 (4) Hypertension Admission Dx acute hypoxic respiratory failure AML pancytopenia Clinical Quality Measures Admission Status Admission Dx acute hypoxic respiratory failure AML pancytopenia DVT/VTE Risk/Contraindication: Risk Factor Score Per Nursin RFS Level Per Nursing on Admit: 4+=Very High AISSATOU MIRAMONTES MD Mar 12, 2020 12:57
--- NOTE | 2020-03-12 15:29 | Cardiology Progress Note ---
Cardiology SOAP Progress Note Subjective: Worsening shortness of breath, on BiPAP today Objective: I&O/Vital Signs 03/12/20 03/12/20 03/12/20 03/12/20 03:35 04:00 04:20 05:00 Pulse 82 82 Resp 22 21 B/P (MAP) 122/56 (78) 125/59 (81) Pulse Ox 89 91 O2 Delivery Vapotherm Vapotherm NIV Bilevel NIV Bilevel O2 Flow Rate 40.00 40.00 55.00 55.00 100.00 FiO2 100 03/12/20 03/12/20 03/12/20 03/12/20 06:00 06:40 06:41 07:00 Pulse 86 98 90 Resp 22 B/P (MAP) 134/58 (83) 125/64 (84) Pulse Ox 91 91 O2 Delivery NIV Bilevel NIV Bilevel NIV Bilevel O2 Flow Rate 55.00 65.00 65.00 03/12/20 03/12/20 03/12/20 03/12/20 07:02 07:57 08:00 08:00 Temp 36.2 Pulse 93 93 Resp 25 29 B/P (MAP) 124/57 (79) Pulse Ox 93 93 O2 Delivery NIV Bilevel NIV Bilevel O2 Flow Rate 65.00 65.00 FiO2 65 03/12/20 03/12/20 03/12/20 03/12/20 09:00 10:00 10:27 10:38 Pulse 92 89 93 Resp 35 15 23 B/P (MAP) 135/59 (84) 130/68 (88) Pulse Ox 98 98 98 O2 Delivery NIV Bilevel NIV Bilevel NIV Bilevel O2 Flow Rate 65.00 65.00 100.00 80.00 03/12/20 03/12/20 03/12/20 03/12/20 11:00 12:00 12:00 12:38 Temp 36.8 Pulse 92 88 88 Resp 18 21 B/P (MAP) 118/59 (78) 121/57 (78) Pulse Ox 96 95 O2 Delivery NIV Bilevel NIV Bilevel O2 Flow Rate 80.00 80.00 03/12/20 03/12/20 03/12/20 03/12/20 13:00 14:00 15:06 15:09 Pulse 90 84 93 Resp 18 20 26 B/P (MAP) 120/62 (81) 120/57 (78) Pulse Ox 97 97 98 O2 Delivery NIV Bilevel NIV Bilevel NIV Bilevel O2 Flow Rate 80.00 80.00 80.00 60.00 03/11/20 23:59 Intake Total 935 ml Output Total 1600 ml Balance -665 ml Weight (Pounds): 257 Weight (Ounces): 0.0 Weight (Calculated Kilograms): 116.408979 Constitutional: AAO x 3 Respiratory: respiratory distress, chest is bilaterally symmetric, other (Decreased breath sounds bilaterally.) Cardiovascular: regular rate-rhythm, S1 and S2 Gastrointestional: soft, audible bowel sounds Extremities: normal range of motion, non-tender, normal inspection Neurologic/Psychiatric: no motor/sensory deficits, alert, normal mood/affect, oriented x 3 Skin: pallor Results/Procedures: Labs Laboratory Tests 03/11/20 15:57: Glucometer 306H 03/11/20 20:12: Glucometer 220H 03/12/20 02:57: White Blood Count 4.1L, Red Blood Count 2.34L, Hemoglobin 7.6L, Hematocrit 25L, Mean Corpuscular Volume 105H, Mean Corpuscular Hemoglobin 32, Mean Corpuscular Hemoglobin Concent 31L, Red Cell Distribution Width 24.2H, Platelet Count 11*L, Mean Platelet Volume 10.2, Neutrophils (%) (Auto) 82H, Lymphocytes (%) (Auto) 9L , Monocytes (%) (Auto) 9, Eosinophils (%) (Auto) 0, Basophils (%) (Auto) 0, Neutrophils # (Auto) 3.3, Lymphocytes # (Auto) 0.4L, Monocytes # (Auto) 0.4, Eosinophils # (Auto) 0.0, Basophils # (Auto) 0.0, Sodium Level 141, Potassium Level 3.8, Chloride Level 104, Carbon Dioxide Level 25, Anion Gap 12, Blood Urea Nitrogen 41H, Creatinine 1.03, Estimat Glomerular Filtration Rate > 60, BUN/Creatinine Ratio 40, Glucose Level 150H, Calcium Level 7.9L, Phosphorus Level 4.5, Magnesium Level 2.5H 03/12/20 10:44: Glucometer 191H Microbiology 03/10/20 Urine Culture - Final, Complete NO GROWTH 03/09/20 Influenza Types A,B Antigen (TIANA) - Final, Complete 03/08/20 Blood Culture - Preliminary, Resulted Staph, 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 Echocardiogram showed mild systolic dysfunction with EF of 45-50 percent. Mild to moderate diastolic dysfunction. Mild aortic stenosis. AML, Dr. 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 Pancytopenia, History of CAD/CABG, stable. History of rheumatoid arthritis. Thank you for your consultation. Please call me if you have any questions. Susan Muñiz MD, FACP, FACC, FSCAI, FHRS, CCDS Interventional Cardiology Cardiac Electrophysiology Vascular Medicine and Endovascular Interventions Jessica MUÑIZ MD Mar 12, 2020 15:29
--- NOTE | 2020-03-12 17:48 | Progress Note ---
Standard Progress Note Progress Notes/Assess & Plan Date Seen by a Provider: Mar 12, 2020 Time Seen by a Provider: 17:43 Progress/Assessment & Plan 75 yo male with severe chronic heart and lung disease and recently diagnosed AML was admitted on 03/08/20 for acute on chronic hypoxic respiratory failure secondary to pneumonia vs CHF vs combination of multiple factors. Over the last 24 hours, respiratory status has decompensated and patient is back on NIPPV. 1. Hypoxic respiratory failure. Worsening despite aggressive antibiotics and diuresis. Due to patient's immunocompromised state, consider empiric treatment for PJP pneumonia. Options include TMP-SMX + dapsone, clindamycin + primaquine, IV pentamidine. 2. AML. Severe pancytopenia is secondary to malignancy. PPX antimicrobials (acyclovir, posaconazole/echinocandin, fluoroquinolone) are to continue indefinitely. Transfuse to keep hgb >8.0 due to his heart disease and platelets >10. 3. CAD. Since he will need to be on posaconazole, it is preferred that he not be on a statin. If cardiology deems it necessary to be on a statin, rosuvastatin is least likely to interact with posaconazole. DENNIS AMIN MD Mar 12, 2020 17:48
[2020-03-13] VITALS (33 sets, daily range): BP systolic 115–148; BP diastolic 48–118
[2020-03-13 01:44] LABS: BASOPHILS % (AUTO) 0 % (0-10); EOSINOPHILS % (AUTO) 0 % (0-10); HEMATOCRIT 24 % (40-54); HEMOGLOBIN 7.5 G/DL (13.3-17.7); LYMPHOCYTES # (AUTO) 0.3 X 10^3 (1.0-4.0); LYMPHOCYTES % (AUTO) 6 % (12-44); MEAN CORPUSCULAR HEMOGLOBIN 33 PG (25-34); MEAN CORPUSCULAR HGB CONC 31 G/DL (32-36); MEAN CORPUSCULAR VOLUME 106 FL (80-99); MEAN PLATELET VOLUME 10.2 FL (7.4-10.4); MONOCYTES # (AUTO) 0.2 X 10^3 (0.0-1.0); MONOCYTES % (AUTO) 6 % (0-12); NEUTROPHILS # (AUTO) 3.4 X 10^3 (1.8-7.8); NEUTROPHILS % (AUTO) 87 % (42-75); RED CELL DISTRIBUTION WIDTH 23.3 % (10.0-14.5); WHITE BLOOD COUNT 3.9 10^3/uL (4.3-11.0)
[2020-03-13 01:48] LABS: PLATELET COUNT 6 10^3/uL (130-400)
[2020-03-13 01:53] LABS: CHLORIDE 105 MMOL/L (98-107)
[2020-03-13 01:54] LABS: SODIUM 144 MMOL/L (135-145)
[2020-03-13 01:55] LABS: CALCIUM 8.1 MG/DL (8.5-10.1); GLUCOSE 129 MG/DL (70-105)
[2020-03-13] MEDS: KCL 20 MEQ TAB (K-DUR) PO SCH (01:55)
[2020-03-13] MEDS: POTASSIUM CL 10MEQ/50ML IVPB 50 ML IV SCH (01:55)
[2020-03-13 01:57] LABS: CARBON DIOXIDE 29 MMOL/L (21-32)
[2020-03-13 01:59] LABS: CREATININE SERUM 1.05 MG/DL (0.60-1.30); GFR ESTIMATED > 60; PHOSPHORUS 4.8 MG/DL (2.3-4.7)
[2020-03-13 02:00] LABS: BUN/CREATININE RATIO 43
[2020-03-13 02:02] LABS: MAGNESIUM 2.4 MG/DL (1.6-2.4)
[2020-03-13] MEDS: RT-ALBUTEROL SULF 2.5 MG/3 ML PRE-MIX VIAL INH SCH ×6 (02:11→23:00)
[2020-03-13] MEDS: MAGNESIUM 1 GM/100 ML IVPB 100 ML IV SCH (02:25)
[2020-03-13] MEDS: PIPERACILLIN/TAZOBACTAM (BULK) 4.5 GM in NS (IVPB) 100 ML IV SCH ×2 (05:06→13:08)
[2020-03-13] MEDS: inSUlin ASPART (NovoLOG) 1 UNIT/0.01 ML (CHARGE PER UNIT) SC SCH ×5 (05:06→20:28)
[2020-03-13] MEDS: methylPREDNISolone 40 MG/ML (Solu-MEDROL) VIAL IV SCH ×4 (05:06→23:10)
[2020-03-13] MEDS: CATHETER FLUSH 10 ML SYR IV SCH ×3 (05:07→22:08)
--- NOTE | 2020-03-13 07:37 | Diagnostic Imaging Report ---
Indication: Pneumonia. Compared 03/12. Findings: There has been substantial improvements in the bilateral 5 lobed infiltrates with a reduction in pleural fluid and no adverse development. Impression: Substantial improvements in bilateral infiltrates and pleural fluid. Dictated by: Dictated on workstation # [id number]
[2020-03-13] MEDS: TAMSULOSIN 0.4 MG (FLOMAX) CAP PO SCH (07:59)
[2020-03-13] MEDS: ACYCLOVIR 400 MG TABLET (ZOVIRAX) PO SCH ×2 (07:59→20:33)
[2020-03-13] MEDS: BUMETANIDE 1 MG/4 ML (BUMEX) VIAL IV SCH ×2 (08:00→20:33)
[2020-03-13] MEDS: PANTOPRAZOLE 40 MG (PROTONIX) VIAL IV SCH (08:00)
--- NOTE | 2020-03-13 10:00 | Progress Note - Hospitalist ---
Subjective HPI/CC On Admission Date Seen by Provider: Mar 13, 2020 Time Seen by Provider: 08:45 Subjective/Events-last exam Pt reports feeling ok today. No new complaints. Was taken off BiPAP to take meds and maxed on Vapotherm. Despite that sats dropped to 85%. Objective Exam Vital Signs Vital Signs Date Time Temp Pulse Resp B/P (MAP) Pulse Ox O2 Delivery O2 Flow Rate FiO2 03/13/20 09:00 87 19 127/66 (86) 93 NIV Bilevel 70.00 03/13/20 08:15 65 03/13/20 07:25 36.2 Capillary Refill : Less Than 3 Seconds General Appearance: No Apparent Distress, Chronically ill, Obese Respiratory: No Accessory Muscle Use, Crackles; No Wheezing Cardiovascular: Regular Rate, Rhythm, No Murmur Gastrointestinal: Normal Bowel Sounds, Non Tender, Soft Genital/Rectal: Other (elkins in place) Neurologic/Psychiatric: Alert, Oriented x3 Results/Procedures Lab Laboratory Tests 03/13/20 01:21 Patient resulted labs reviewed. Assessment/Plan Assessment and Plan Assess & Plan/Chief Complaint 03/08/20- admitted to ICU for AHRF 03/09/20- Platelets and hgb have trended down and he received both transfusion today. Transitioned to HFNC from BiPAP- panculture. broad spectrum antibiotics. vanc/zosyn, levoquin. -diuresing. COVID-19 negative. 03/10/20- Hgb, platelets improved with transfusion- still on broad spectrum antibiotics. He is still on HFNC will try to titrate settings. replacing electrolytes. strep and legionella negative. 03/11/20- still working on respiratory status- he is on HFNC- he is getting steroids as well as antibiotics. monitor cbc 03/12/20- DNR now. Waiting 24hours with bipap and current care- if not better he wants to stop care and see what happens- he understands that he is likely to decompensate and . He would like to go home and . 03/13/20- Would like to continue with current care. Continue on Zosyn and Eraxis. Continue Solu-Medrol. Continue bumex. Will place back on BiPAP. Discussed with telehealth. No changes at this time. Appreciate Pulm/telehealth consult and Oncology, Cardiology consult. Overall poor prognosis. Continue time trial of current measures. Clinical Quality Measures DVT/VTE Risk/Contraindication: Risk Factor Score Per Nursin RFS Level Per Nursing on Admit: 4+=Very High MERYL CROCKER MD Mar 13, 2020 10:00
[2020-03-13] MEDS: ANIDULAFUNGIN INJECTION 100 MG in NS (IVPB) 100 ML IV SCH (10:09)
--- NOTE | 2020-03-13 10:15 | Progress Note ---
Standard Progress Note Progress Notes/Assess & Plan Date Seen by a Provider: Mar 13, 2020 Time Seen by a Provider: 10:07 Progress/Assessment & Plan 75-year-old male with diagnosis of AML on 02/06/2020 and evaluated at [facility]. Poor prognostic features of FLT3-ITD mutation, trisomy 11 and 8 as well as older age. Patient completed first course of chemotherapy with decytabine at . He was due to start the second course on 03/08/2020 but admitted to the hospital with bilateral pneumonia and hypoxemia. Cultures negative so far. He is still on BiPAP and maintaining saturations in the low to mid 90's. Unable to wean off BiPAP because of desaturation. Patient is feeling slightly better this morning and complained of being hungry. Would recommend nutritional supplements 3-4 times daily as he is unable to take off BiPAP to eat for prolonged periods. Maintain DO NOT RESUSCITATE status. Patient wanted to wait another day or 2 to see if he continues to improve before deciding on palliative care alone. Labs noted today. Transfuse 1 unit of platelets and 1 unit of packed red blood cells. See Dr. Abrams's note from yesterday regarding PJP prophylaxis. REYNA PEDRO Mar 13, 2020 10:15
[2020-03-13] MEDS ORDERED: NS IV 500 ML 500 ML IV SCH (10:30)
--- NOTE | 2020-03-13 13:59 | Cardiology Progress Note ---
Cardiology SOAP Progress Note Subjective: Shortness of breath. Objective: I&O/Vital Signs 03/13/20 03/13/20 03/13/20 03/13/20 02:00 02:11 03:00 03:49 Temp 36.5 Pulse 80 94 86 84 Resp 15 18 19 B/P (MAP) 122/58 (79) 123/60 (81) Pulse Ox 94 90 91 O2 Delivery NIV Bilevel NIV Bilevel O2 Flow Rate 65.00 65.00 65.00 03/13/20 03/13/20 03/13/20 03/13/20 04:00 04:00 05:00 06:00 Pulse 87 93 79 Resp 21 22 15 B/P (MAP) 138/63 (88) 138/67 (90) 131/70 (90) Pulse Ox 90 96 95 O2 Delivery NIV Bilevel NIV Bilevel NIV Bilevel NIV Bilevel O2 Flow Rate 65.00 65.00 65.00 FiO2 65 03/13/20 03/13/20 03/13/20 03/13/20 06:48 07:00 07:11 07:25 Temp 36.2 Pulse 77 93 78 Resp 22 19 B/P (MAP) 136/60 (85) Pulse Ox 96 93 O2 Delivery NIV Bilevel O2 Flow Rate 65.00 65.00 03/13/20 03/13/20 03/13/20 03/13/20 08:00 08:12 08:15 09:00 Pulse 90 87 Resp 14 19 B/P (MAP) 125/68 (87) 127/66 (86) Pulse Ox 89 93 O2 Delivery NIV Bilevel NIV Bilevel NIV Bilevel NIV Bilevel O2 Flow Rate 65.00 70.00 70.00 FiO2 65 03/13/20 03/13/20 03/13/20 03/13/20 10:00 10:26 11:00 11:22 Temp 36.3 Pulse 92 87 86 Resp 27 19 17 B/P (MAP) 130/63 (85) 131/66 (87) Pulse Ox 94 94 90 O2 Delivery NIV Bilevel NIV Bilevel O2 Flow Rate 70.00 65.00 70.00 03/13/20 03/13/20 03/13/20 03/13/20 11:50 12:00 12:00 12:05 Temp 36.1 36.4 Pulse 84 90 103 Resp 13 10 20 B/P (MAP) 131/66 148/118 (128) 124/57 Pulse Ox 92 92 90 O2 Delivery Vapotherm NIV Bilevel NIV Bilevel Vapotherm O2 Flow Rate 70.00 FiO2 100 65 100 03/12/20 23:59 Intake Total 770 ml Output Total 800 ml Balance -30 ml Weight (Pounds): 257 Weight (Ounces): 0.0 Weight (Calculated Kilograms): 116.827690 Constitutional: AAO x 3 Respiratory: respiratory distress, chest is bilaterally symmetric, other (Decreased breath sounds bilaterally.) Cardiovascular: regular rate-rhythm, S1 and S2 Gastrointestional: soft, audible bowel sounds Extremities: normal range of motion, non-tender, normal inspection Neurologic/Psychiatric: no motor/sensory deficits, alert, normal mood/affect, oriented x 3 Skin: pallor Results/Procedures: Labs Laboratory Tests 03/12/20 16:02: Glucometer 173H 03/12/20 20:02: Glucometer 252H 03/13/20 01:21: White Blood Count 3.9L, Red Blood Count 2.28L, Hemoglobin 7.5L, Hematocrit 24L, Mean Corpuscular Volume 106H, Mean Corpuscular Hemoglobin 33, Mean Corpuscular Hemoglobin Concent 31L, Red Cell Distribution Width 23.3H, Platelet Count 6*L, Mean Platelet Volume 10.2, Neutrophils (%) (Auto) 87H, Lymphocytes (%) (Auto) 6L , Monocytes (%) (Auto) 6, Eosinophils (%) (Auto) 0, Basophils (%) (Auto) 0, Neutrophils # (Auto) 3.4, Lymphocytes # (Auto) 0.3L, Monocytes # (Auto) 0.2, Eosinophils # (Auto) 0.0, Basophils # (Auto) 0.0, Sodium Level 144, Potassium Level 4.0, Chloride Level 105, Carbon Dioxide Level 29, Anion Gap 10, Blood Urea Nitrogen 45H, Creatinine 1.05, Estimat Glomerular Filtration Rate > 60, BUN/Creatinine Ratio 43, Glucose Level 129H, Calcium Level 8.1L, Phosphorus Level 4.8H, Magnesium Level 2.4 03/13/20 11:22: Glucometer 166H Microbiology 03/10/20 Urine Culture - Final, Complete NO GROWTH 03/09/20 Influenza Types A,B Antigen (TIANA) - Final, Complete 03/08/20 Blood Culture - Preliminary, Resulted 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 Echocardiogram showed mild systolic dysfunction with EF of 45-50 percent. Mild to moderate diastolic dysfunction. Mild aortic stenosis. AML, Dr. 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 Pancytopenia, History of CAD/CABG, stable. History of rheumatoid arthritis. Thank you for your consultation. Please call me if you have any questions. Susan Muñiz MD, FACP, FACC, FSCAI, FHRS, CCDS Interventional Cardiology Cardiac Electrophysiology Vascular Medicine and Endovascular Interventions Jessica MUÑIZ MD Mar 13, 2020 13:59
[2020-03-13] MEDS: TRIM/SULFAMETH 160/800 (SEPTRA DS) TAB PO SCH (17:17)
[2020-03-14] VITALS (25 sets, daily range): BP systolic 123–154; BP diastolic 59–77
[2020-03-14] MEDS: RT-ALBUTEROL SULF 2.5 MG/3 ML PRE-MIX VIAL INH SCH ×6 (02:40→21:19)
[2020-03-14 02:51] LABS: BASOPHILS % (AUTO) 0 % (0-10); EOSINOPHILS % (AUTO) 0 % (0-10); HEMATOCRIT 27 % (40-54); HEMOGLOBIN 8.6 G/DL (13.3-17.7); LYMPHOCYTES # (AUTO) 0.3 X 10^3 (1.0-4.0); LYMPHOCYTES % (AUTO) 7 % (12-44); MEAN CORPUSCULAR HEMOGLOBIN 33 PG (25-34); MEAN CORPUSCULAR HGB CONC 32 G/DL (32-36); MEAN CORPUSCULAR VOLUME 103 FL (80-99); MEAN PLATELET VOLUME 10.1 FL (7.4-10.4); MONOCYTES # (AUTO) 0.3 X 10^3 (0.0-1.0); MONOCYTES % (AUTO) 6 % (0-12); NEUTROPHILS # (AUTO) 3.6 X 10^3 (1.8-7.8); NEUTROPHILS % (AUTO) 86 % (42-75); RED CELL DISTRIBUTION WIDTH 23.6 % (10.0-14.5); WHITE BLOOD COUNT 4.2 10^3/uL (4.3-11.0)
[2020-03-14 02:57] LABS: PLATELET COUNT 12 10^3/uL (130-400)
[2020-03-14 03:10] LABS: BUN/CREATININE RATIO 53; CALCIUM 7.9 MG/DL (8.5-10.1); CARBON DIOXIDE 32 MMOL/L (21-32); CHLORIDE 102 MMOL/L (98-107); CREATININE SERUM 0.92 MG/DL (0.60-1.30); GFR ESTIMATED > 60; GLUCOSE 136 MG/DL (70-105); MAGNESIUM 2.4 MG/DL (1.6-2.4); PHOSPHORUS 4.9 MG/DL (2.3-4.7); POTASSIUM 4.5 MMOL/L (3.6-5.0); SODIUM 143 MMOL/L (135-145)
[2020-03-14] MEDS: POTASSIUM CL 10MEQ/50ML IVPB 50 ML IV SCH (03:50)
[2020-03-14] MEDS: MAGNESIUM 1 GM/100 ML IVPB 100 ML IV SCH (03:51)
[2020-03-14] MEDS: KCL 20 MEQ TAB (K-DUR) PO SCH (03:51)
[2020-03-14] MEDS: methylPREDNISolone 40 MG/ML (Solu-MEDROL) VIAL IV SCH ×3 (05:53→16:20)
[2020-03-14] MEDS: inSUlin ASPART (NovoLOG) 1 UNIT/0.01 ML (CHARGE PER UNIT) SC SCH ×4 (05:54→20:41)
[2020-03-14] MEDS: TRIM/SULFAMETH 160/800 (SEPTRA DS) TAB PO SCH ×2 (05:54→16:20)
[2020-03-14] MEDS: CATHETER FLUSH 10 ML SYR IV SCH ×2 (05:54→15:01)
--- NOTE | 2020-03-14 08:24 | Diagnostic Imaging Report ---
INDICATION: Pneumonia. Comparison with 03/13/2020. FINDINGS: Cardiomegaly and median sternotomy changes are again noted. Persistent bilateral interstitial infiltrates as well as scattered nodular densities noted in the lower lobe. No pneumothorax or pleural effusion. IMPRESSION: Overall stable appearance with persistent bilateral infiltrates predominantly interstitial in nature. Dictated by: Dictated on workstation # [id number]
[2020-03-14] MEDS: PANTOPRAZOLE 40 MG (PROTONIX) VIAL IV SCH (10:11)
[2020-03-14] MEDS: BUMETANIDE 1 MG/4 ML (BUMEX) VIAL IV SCH ×2 (10:11→20:38)
[2020-03-14] MEDS: ANIDULAFUNGIN INJECTION 100 MG in NS (IVPB) 100 ML IV SCH (10:11)
[2020-03-14] MEDS: DAPSONE 100 MG TABLET PO SCH (10:11)
[2020-03-14] MEDS: TAMSULOSIN 0.4 MG (FLOMAX) CAP PO SCH (10:12)
[2020-03-14] MEDS: ACYCLOVIR 400 MG TABLET (ZOVIRAX) PO SCH ×2 (10:18→20:38)
--- NOTE | 2020-03-14 14:00 | Progress Note - Hospitalist ---
Subjective HPI/CC On Admission Date Seen by Provider: Mar 14, 2020 Time Seen by Provider: 13:56 Subjective/Events-last exam Pt reports doing better. Off BiPAP and on Vapotherm. Complained about timing of breakfast delivery but no complaints about how he is doing. Advised to work on getting out of bed today but he declined. States he will consider it tomorrow. Objective Exam Vital Signs Vital Signs Date Time Temp Pulse Resp B/P (MAP) Pulse Ox O2 Delivery O2 Flow Rate FiO2 03/14/20 13:04 NIV Bilevel 70.00 03/14/20 12:41 105 03/14/20 12:00 135/63 (87) 93 03/14/20 11:40 36.7 03/14/20 10:58 100 Capillary Refill : Less Than 3 Seconds General Appearance: No Apparent Distress, Chronically ill Respiratory: No Accessory Muscle Use, Rhonci Cardiovascular: Regular Rate, Rhythm, No Murmur Gastrointestinal: Normal Bowel Sounds, Non Tender, Soft Neurologic/Psychiatric: Alert, Oriented x3, Normal Mood/Affect Results/Procedures Lab Laboratory Tests 03/14/20 02:45 Patient resulted labs reviewed. Assessment/Plan Assessment and Plan Assess & Plan/Chief Complaint 03/08/20- admitted to ICU for AHRF 03/09/20- Platelets and hgb have trended down and he received both transfusion today. Transitioned to HFNC from BiPAP- panculture. broad spectrum antibiotics. vanc/zosyn, levoquin. -diuresing. COVID-19 negative. 03/10/20- Hgb, platelets improved with transfusion- still on broad spectrum antibiotics. He is still on HFNC will try to titrate settings. replacing electrolytes. strep and legionella negative. 03/11/20- still working on respiratory status- he is on HFNC- he is getting steroids as well as antibiotics. monitor cbc 03/12/20- DNR now. Waiting 24hours with bipap and current care- if not better he wants to stop care and see what happens- he understands that he is likely to decompensate and . He would like to go home and . 03/13/20- Would like to continue with current care. Continue on Zosyn and Eraxis. Continue Solu-Medrol. Continue bumex. Will place back on BiPAP. Discussed with telehealth. No changes at this time. Appreciate Pulm/telehealth consult and Oncology, Cardiology consult. Overall poor prognosis. Continue time trial of current measures. 03/14/20- Very minimal improvement. He was able to tolerate being off BiPAP for long enough to eat today. Continue current measures. Received blood yesterday. Started on PJP ppx. Prognosis remains overall poor but may be able to improve enough to go home with hospice. Clinical Quality Measures DVT/VTE Risk/Contraindication: Risk Factor Score Per Nursin RFS Level Per Nursing on Admit: 4+=Very High MERYL CROCKER MD Mar 14, 2020 14:00
--- NOTE | 2020-03-14 14:17 | Cardiology Progress Note ---
Cardiology SOAP Progress Note Subjective: Shortness of breath. Objective: I&O/Vital Signs 03/14/20 03/14/20 03/14/20 03/14/20 02:36 03:00 03:02 03:03 Temp 36.3 Pulse 76 89 Resp 15 23 B/P (MAP) 140/69 (92) Pulse Ox 93 93 O2 Delivery NIV Bilevel NIV Bilevel O2 Flow Rate 70.00 70.00 FiO2 70 03/14/20 03/14/20 03/14/20 03/14/20 04:00 05:00 06:00 06:45 Pulse 83 79 92 76 Resp 19 19 19 B/P (MAP) 135/65 (88) 134/69 (90) 154/76 (102) Pulse Ox 91 92 91 O2 Delivery NIV Bilevel NIV Bilevel NIV Bilevel O2 Flow Rate 70.00 70.00 70.00 03/14/20 03/14/20 03/14/20 03/14/20 07:00 07:11 07:25 08:00 Pulse 74 103 Resp 15 16 B/P (MAP) 137/66 (89) 143/64 (90) Pulse Ox 93 91 90 O2 Delivery NIV Bilevel Vapotherm Vapotherm Vapotherm O2 Flow Rate 70.00 40.00 40.00 40.00 100.00 100.00 FiO2 100 03/14/20 03/14/20 03/14/20 03/14/20 08:15 09:00 10:00 10:58 Temp 36.4 Pulse 89 101 Resp 24 45 B/P (MAP) 141/65 (90) 145/64 (91) Pulse Ox 91 89 94 O2 Delivery Vapotherm Vapotherm Vapotherm O2 Flow Rate 40.00 40.00 40.00 100.00 100.00 FiO2 100 03/14/20 03/14/20 03/14/20 03/14/20 11:00 11:40 12:00 12:41 Temp 36.7 Pulse 96 108 105 Resp 23 26 B/P (MAP) 142/64 (90) 135/63 (87) Pulse Ox 93 93 O2 Delivery Vapotherm Vapotherm O2 Flow Rate 40.00 40.00 100.00 100.00 03/14/20 13:04 O2 Delivery NIV Bilevel O2 Flow Rate 70.00 03/14/20 00:00 Intake Total 2175 ml Output Total 1500 ml Balance 675 ml Weight (Pounds): 257 Weight (Ounces): 0.0 Weight (Calculated Kilograms): 116.180802 Constitutional: AAO x 3 Respiratory: respiratory distress, chest is bilaterally symmetric, other (Decreased breath sounds bilaterally.) Cardiovascular: regular rate-rhythm, S1 and S2 Gastrointestional: soft, audible bowel sounds Extremities: normal range of motion, non-tender, normal inspection Neurologic/Psychiatric: no motor/sensory deficits, alert, normal mood/affect, oriented x 3 Skin: pallor Results/Procedures: Labs Laboratory Tests 03/13/20 17:39: Glucometer 251H 03/13/20 20:22: Glucometer 146H 03/14/20 02:45: White Blood Count 4.2L, Red Blood Count 2.64L, Hemoglobin 8.6L, Hematocrit 27L, Mean Corpuscular Volume 103H, Mean Corpuscular Hemoglobin 33, Mean Corpuscular Hemoglobin Concent 32, Red Cell Distribution Width 23.6H, Platelet Count 12*L, Mean Platelet Volume 10.1, Neutrophils (%) (Auto) 86H, Lymphocytes (%) (Auto) 7L , Monocytes (%) (Auto) 6, Eosinophils (%) (Auto) 0, Basophils (%) (Auto) 0, Neutrophils # (Auto) 3.6, Lymphocytes # (Auto) 0.3L, Monocytes # (Auto) 0.3, Eosinophils # (Auto) 0.0, Basophils # (Auto) 0.0, Sodium Level 143, Potassium Level 4.5, Chloride Level 102, Carbon Dioxide Level 32, Anion Gap 9, Blood Urea Nitrogen 49H, Creatinine 0.92, Estimat Glomerular Filtration Rate > 60, BUN/Creatinine Ratio 53, Glucose Level 136H, Calcium Level 7.9L, Phosphorus Level 4.9H, Magnesium Level 2.4 03/14/20 10:39: Glucometer 229H Microbiology 03/10/20 Urine Culture - Final, Complete NO GROWTH 03/09/20 Influenza Types A,B Antigen (TIANA) - Final, Complete 03/08/20 Blood Culture - Preliminary, Resulted Staph, 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 Pneumonia. Echocardiogram showed mild systolic dysfunction with EF of 45-50 percent. Mild to moderate diastolic dysfunction. Mild aortic stenosis. AML, Dr. 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 Pancytopenia, History of CAD/CABG, stable. History of rheumatoid arthritis. Thank you for your consultation. Please call me if you have any questions. Susan Muñiz MD, FACP, FACC, FSCAI, FHRS, CCDS Interventional Cardiology Cardiac Electrophysiology Vascular Medicine and Endovascular Interventions Jessica MUÑIZ MD Mar 14, 2020 14:16
[2020-03-14] MEDS ORDERED: polyethylene glycoL POWDER 17 GM (MIRALAX) PACK PO PRN (18:30)
[2020-03-15] VITALS (9 sets, daily range): BP systolic 125–145; BP diastolic 58–67
[2020-03-15] MEDS: RT-ALBUTEROL SULF 2.5 MG/3 ML PRE-MIX VIAL INH SCH ×2 (01:56→07:08)
[2020-03-15] MEDS: methylPREDNISolone 40 MG/ML (Solu-MEDROL) VIAL IV SCH ×2 (02:00→06:37)
[2020-03-15] MEDS: CATHETER FLUSH 10 ML SYR IV SCH ×4 (02:01→20:05)
[2020-03-15 03:13] LABS: BASOPHILS % (AUTO) 0 % (0-10); EOSINOPHILS % (AUTO) 0 % (0-10); HEMATOCRIT 27 % (40-54); HEMOGLOBIN 8.7 G/DL (13.3-17.7); LYMPHOCYTES # (AUTO) 0.5 X 10^3 (1.0-4.0); LYMPHOCYTES % (AUTO) 11 % (12-44); MEAN CORPUSCULAR HEMOGLOBIN 33 PG (25-34); MEAN CORPUSCULAR HGB CONC 32 G/DL (32-36); MEAN CORPUSCULAR VOLUME 103 FL (80-99); MEAN PLATELET VOLUME 11.4 FL (7.4-10.4); MONOCYTES # (AUTO) 0.4 X 10^3 (0.0-1.0); MONOCYTES % (AUTO) 10 % (0-12); NEUTROPHILS # (AUTO) 3.3 X 10^3 (1.8-7.8); NEUTROPHILS % (AUTO) 79 % (42-75); RED CELL DISTRIBUTION WIDTH 22.5 % (10.0-14.5); WHITE BLOOD COUNT 4.2 10^3/uL (4.3-11.0)
[2020-03-15 03:21] LABS: CHLORIDE 101 MMOL/L (98-107); POTASSIUM 4.3 MMOL/L (3.6-5.0); SODIUM 141 MMOL/L (135-145)
[2020-03-15 03:23] LABS: CALCIUM 7.9 MG/DL (8.5-10.1); GLUCOSE 121 MG/DL (70-105)
[2020-03-15 03:24] LABS: PLATELET COUNT 9 10^3/uL (130-400)
[2020-03-15 03:25] LABS: CARBON DIOXIDE 29 MMOL/L (21-32)
[2020-03-15 03:27] LABS: GFR ESTIMATED > 60; PHOSPHORUS 4.8 MG/DL (2.3-4.7)
[2020-03-15 03:28] LABS: BUN/CREATININE RATIO 51
[2020-03-15 03:29] LABS: MAGNESIUM 2.3 MG/DL (1.6-2.4)
[2020-03-15] MEDS: MAGNESIUM 1 GM/100 ML IVPB 100 ML IV SCH (05:00)
[2020-03-15] MEDS: POTASSIUM CL 10MEQ/50ML IVPB 50 ML IV SCH (05:00)
[2020-03-15] MEDS: KCL 20 MEQ TAB (K-DUR) PO SCH (05:00)
[2020-03-15] MEDS: inSUlin ASPART (NovoLOG) 1 UNIT/0.01 ML (CHARGE PER UNIT) SC SCH (05:01)
--- NOTE | 2020-03-15 05:12 | Pulmonary Progress Note ---
Subjective Date Seen by a Provider: Mar 15, 2020 Time Seen by a Provider: 05:08 Subjective/Events-last exam Still requiring a lot of oxygen. Sepsis Event Evaluation Height, Weight, BMI Height: 6'0.00" Weight: 257lbs. 0.0oz. 116.926419ao; 36.00 BMI Method:Stated Exam Exam Vital Signs Date Time Temp Pulse Resp B/P (MAP) Pulse Ox O2 Delivery O2 Flow Rate FiO2 03/15/20 04:00 Vapotherm 40.00 100 03/15/20 01:56 92 Vapotherm 40.00 100 03/15/20 00:00 Vapotherm 40.00 100 03/14/20 23:00 89 129/71 (90) Vapotherm 40.00 100.00 03/14/20 22:00 98 28 152/77 (102) 97 Vapotherm 40.00 100.00 03/14/20 21:19 95 Vapotherm 40.00 100 03/14/20 21:00 93 28 146/67 (93) 94 Vapotherm 40.00 100.00 03/14/20 20:00 Vapotherm 40.00 100 03/14/20 20:00 93 25 147/70 (95) 94 Vapotherm 40.00 100.00 03/14/20 19:00 93 03/14/20 19:00 93 26 150/62 (91) 93 Vapotherm 40.00 100.00 03/14/20 18:00 86 23 145/64 (91) 93 NIV Bilevel 70.00 03/14/20 17:42 95 Vapotherm 40.00 100 03/14/20 17:00 95 20 123/74 (90) 92 NIV Bilevel 70.00 03/14/20 16:15 93 Vapotherm 40.00 100 03/14/20 16:00 87 14 141/65 (90) 91 NIV Bilevel 70.00 03/14/20 15:28 36.2 03/14/20 15:00 93 22 139/59 (85) 94 NIV Bilevel 70.00 03/14/20 14:27 92 Vapotherm 40.00 100 03/14/20 14:00 105 22 135/65 (88) 94 NIV Bilevel 70.00 03/14/20 13:04 NIV Bilevel 70.00 03/14/20 13:00 101 19 125/68 (87) 94 Vapotherm 40.00 100.00 03/14/20 12:41 105 03/14/20 12:15 93 Vapotherm 40.00 100 03/14/20 12:00 108 26 135/63 (87) 93 Vapotherm 40.00 100.00 03/14/20 11:40 36.7 03/14/20 11:00 96 23 142/64 (90) 93 Vapotherm 40.00 100.00 03/14/20 10:58 94 Vapotherm 40.00 100 03/14/20 10:00 101 45 145/64 (91) 89 Vapotherm 40.00 100.00 03/14/20 09:00 89 24 141/65 (90) 91 Vapotherm 40.00 100.00 03/14/20 08:15 36.4 03/14/20 08:00 103 16 143/64 (90) 90 Vapotherm 40.00 100.00 03/14/20 07:45 93 Vapotherm 40.00 100 03/14/20 07:25 91 Vapotherm 40.00 100 03/14/20 07:11 Vapotherm 40.00 100.00 03/14/20 07:00 74 15 137/66 (89) 93 NIV Bilevel 70.00 03/14/20 06:45 76 03/14/20 06:00 92 19 154/76 (102) 91 NIV Bilevel 70.00 I & O 03/15/20 07:00 Intake Total 2190 ml Output Total 2200 ml Balance -10 ml Height & Weight Height: 6'0.00" Weight: 257lbs. 0.0oz. 116.062265jj; 36.00 BMI Method:Stated General Appearance: No Apparent Distress, Chronically ill HEENT: PERRL/EOMI Neck: Full Range of Motion, Non Tender Respiratory: No Accessory Muscle Use, Rhonci Cardiovascular: Regular Rate, Rhythm, No Murmur Capillary Refill: Less Than 3 Seconds Gastrointestinal: non tender, soft Extremity: Normal Range of Motion, Non Tender, Pedal Edema Neurologic/Psychiatric: Alert, Oriented x3, Normal Mood/Affect Skin: Warm/Dry Results Lab Laboratory Tests 03/14/20 02:45 03/15/20 03:04 Assessment/Plan Assessment/Plan Acute respiratory failure - pt is requiring more oxygen today. -Currently on BiPAP -- pt improved after lasix yesterday. -BNP is elevated -give 2mg of bumex this AM -Currently no fever, no leukocytosis -Pt has double lumen picc line currently -PT is a full DNR. -Pt wants to go home with hospice. Bilateral infiltrates PNA vs pulmonary edema -No leukocyosis or fever -[place] cultures pending -MRSA swab - negative -COVID is negative -Influenza -- negative - 1mg of bumex Q12 - eraxis Pancytopenia -Transfuse platelets -Oncology following Hx of leukemia -Oncology consulted Hypokalemia -Replace Pt wants to go home with hospice however he is requiring a lot of oxygen. 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 He asked if his could see him if converted to BACK UP MACHINE OPERATOR. overhead irrigator is following. I believe pt will be more appropriate for hospital BACK UP MACHINE OPERATOR secondary to high oxygen requirements. KINGA ALBRIGHT DO Mar 15, 2020 05:11
[2020-03-15] MEDS: TRIM/SULFAMETH 160/800 (SEPTRA DS) TAB PO SCH (06:37)
--- NOTE | 2020-03-15 07:50 | Diagnostic Imaging Report ---
INDICATION: Pneumonia COMPARISON: 03/14/2020 FINDINGS: Single view chest demonstrates cardiac enlargement with unchanged bilateral pulmonary infiltrates. There is no pneumothorax or large effusion. PICC line is stable. Osseous structures are age-appropriate. IMPRESSION: Unchanged aeration of the lungs. Dictated by: Dictated on workstation # [id number]
[2020-03-15] MEDS ORDERED: ARTIFICAL TEARS 0.4 ML UNIT DOSE (REFRESH PLUS) OU PRN (08:15)
[2020-03-15] MEDS ORDERED: BISACODYL 10 MG SUPP (DULCOLAX) PR PRN (08:15)
[2020-03-15] MEDS ORDERED: ONDANSETRON 4 MG/2 ML (SDV) Z0FRAN IVP PRN (08:15)
[2020-03-15] MEDS ORDERED: GLYCOPYRROLATE 0.2 MG/ML (ROBINUL) 2 ML VIAL IV PRN (08:15)
[2020-03-15] MEDS ORDERED: ACETAMINOPHEN 650 MG SUPP (TYLENOL) PR PRN (08:15)
[2020-03-15] MEDS ORDERED: LORazepam INJ 2 MG/ML (ATIVAN) VIAL IVP PRN (08:15)
[2020-03-15] MEDS ORDERED: morphine IMMEDIATE RELEASE 15 MG TABLET PO PRN (08:15)
[2020-03-15] MEDS ORDERED: SALIVA STIMULANT MOUTH SPRAY (BIOTENE) 1.5 OZ MM PRN (08:15)
[2020-03-15] MEDS ORDERED: RT-ALBUTEROL/IPRATROPIUM 3 ML (DUONEB) VIAL INH PRN (08:15)
[2020-03-15] MEDS ORDERED: PROMETHAZINE INJ 25 MG/ML (PHENERGAN) AMP IVP PRN (08:15)
[2020-03-15] MEDS: BUMETANIDE 1 MG/4 ML (BUMEX) VIAL IV SCH (08:30)
[2020-03-15] MEDS: PANTOPRAZOLE 40 MG (PROTONIX) VIAL IV SCH (08:30)
[2020-03-15] MEDS: ACYCLOVIR 400 MG TABLET (ZOVIRAX) PO SCH (08:31)
[2020-03-15] MEDS: DAPSONE 100 MG TABLET PO SCH (08:31)
[2020-03-15] MEDS: ANIDULAFUNGIN INJECTION 100 MG in NS (IVPB) 100 ML IV SCH (08:31)
[2020-03-15] MEDS: TAMSULOSIN 0.4 MG (FLOMAX) CAP PO SCH (08:31)
--- NOTE | 2020-03-15 09:00 | NUR ---
Pastoral care visit, pt sitting up in bed. Pt shared that he feels he is nearing end of life and has some spiritual concerns fears, mainly revolving around Gods forgiveness. I explored these concerns with pt and also completed extensive life review. I stayed with pt in ICU until he moved to 4th floor and then picked up visit there until his SO, Susana arrived. Pt was appreciative of visit and seemed to be in a better position emotionally/spiritually. I had prayer with he and Susana.
--- NOTE | 2020-03-15 09:35 | Cardiology Progress Note ---
Subjective Date Seen by Provider: Mar 15, 2020 Time Seen by Provider: 09:34 Subjective/Events-last exam Patient is complaining of cough and dyspnea Review of Systems General: No Chills, No Night Sweats; Fatigue; No Malaise, No Appetite, No Other HEENT: No Head Aches, No Visual Changes, No Eye Pain, No Ear Pain, No Dysphasia, No Sinus Congestion, No Post Nasal Drip, No Sore Throat, No Other Pulmonary: Dyspnea, Cough; No Pleuritic Chest Pain, No Other Cardiovascular: Edema; No: Chest Pain, Palpitations, Orthopnea, Paroxysmal Noc. Dyspnea, Lt Headedness, Other Objective-Cardiology Exam Last Set of Vital Signs Vital Signs 03/15/20 03/15/20 07:52 08:00 Temp 36.3 Pulse 80 Resp 18 B/P (MAP) 134/62 (86) Pulse Ox 96 O2 Delivery Vapotherm O2 Flow Rate 40.00 100.00 FiO2 100 Capillary Refill : Less Than 3 Seconds I&O Intake and Output 03/15/20 00:00 Intake Total 2380 ml Output Total 2525 ml Balance -145 ml Intake Oral 2380 ml Output Urine Total 2525 ml General: Alert, Oriented X3, Cooperative Neck: Supple Lungs: Other (bilateral rhonch) Heart: Regular Rate, Normal S1, Normal S2, Other Abdomen: Normal Bowel Sounds, Soft Extremities: No Clubbing Skin: No Rashes Neuro: Normal Speech Results Lab Laboratory Tests 03/15/20 03:04 A/P-Cardiology Admission Diagnosis Acute respiratory failure Bilateral pneumonia Coronary artery disease Pancytopenia Assessment/Plan Acute respiratory failure, bilateral pneumonia, worsening recently, managed by Dr. Lopes History of coronary artery disease, CABG, currently stable COVID is negative, influenza is negative She will pulmonary edema, receiving diuretics Pancytopenia, followed by Dr. Abrams History of leukemia Patient is requesting comfort care Clinical Quality Measures DVT/VTE Risk/Contraindication: Risk Factor Score Per Nursin RFS Level Per Nursing on Admit: 4+=Very High MARCUS LOZANO MD Mar 15, 2020 09:35
--- NOTE | 2020-03-15 10:00 | NUR ---
PT TRANSPORTED VIA BED TO ROOM 406 WITH RT ON OXYMASK AT 15L. PT TOLERATED TRANSPORT WELL. THIS RN SPOKE WITH PEARL, PTS AND UPDATED HER ON COMFORT MEASURES AND SHE WAS ABLE TO COME STAY WITH PATIENT. WENT OVER RULES/REGULATIONS WITH HER STAYING AT HOSPITAL. SHE VOICED UNDERSTANDING. PASTORAL CARE IS AT BEDSIDE AND WILL CONTINUE AFTER TRANSPORT. REPORT GIVEN TO CHINA DURHAM.
--- NOTE | 2020-03-15 11:00 | NUR ---
Patient arrived to room from ICU. Report provided by CHNIA Lozoya and I agree with previous RN's assessment. All needs met at this time. Call light within reach.
[2020-03-15] MEDS: morphine INJ 4 MG/ML 1 ML (VIAL/SYRINGE) IV PRN (11:28)
--- NOTE | 2020-03-15 11:40 | NUR ---
Palliative Care Notes: Visited with the patient et his at bedside. He voiced that he has been changed to comfort care measures et that the doctors have given him three days left to live. Listened and encouraged him. We visited about his oxygen delivery system, Vapotherm being at the highest level it can deliver and that this device doesn't have an equivalent for home use or fci use. He does have comfort medications in place to help with his breathing/air hunger that he has not had. We talked about trying these medications and slowly reducing the Vapotherm to see if the medications helped with his air hunger. He et his Susana are agreeable with that plan. Updated his Primary Care Nurse, PCT, RT, et Pastoral Care with the above conversation. Primary care nurse Amparo was going to give him morphine to help aide in his air hunger.
--- NOTE | 2020-03-15 14:10 | NUR ---
Pastoral care visit to check on Pt and his SO, they were visiting and watching TV and both seemed in a good place. Will monitor.
--- NOTE | 2020-03-15 15:14 | Physical Therapy Progress Note ---
Therapy Progress Note Orders received for PT. Per patient's nurse, Carly Sadler, patient is going on hospice, all therapies are cancelled. ROBERTH ARELLANO PT Mar 15, 2020 15:14
[2020-03-15] MEDS ORDERED: BUMETANIDE 1 MG/4 ML (BUMEX) VIAL IV ONE (16:30)
--- NOTE | 2020-03-15 17:55 | NUR ---
Palliative Care Note: Visited with the patient. He continues to be awake et alert et orientated. He reports that he feels he is breathing okay, but that he really needs to have a bowel movement. He is trying to have a BM at this time. His Vapotherm has been reduced from 40LPM to 30LPM with 100%FIO2. F/U with his primary care nurse Amparo arteaga she reports that he has not wanted any further MS to aide with any air hunger since this morning. Will continue to follow along.
[2020-03-15] MEDS: LORazepam INJ 2 MG/ML (ATIVAN) VIAL IVP PRN (20:01)
--- NOTE | 2020-03-15 20:03 | Progress Note ---
Subjective Subjective Date Seen by Provider: Mar 15, 2020 Time Seen by Provider: 08:00 Placed on comfort care -hospital he is requiring significant amount of oxygen. Review of Systems General: No Chills, No Night Sweats; Fatigue; No Malaise, No Appetite, No Other HEENT: No Head Aches, No Visual Changes, No Eye Pain, No Ear Pain, No Dysphasia, No Sinus Congestion, No Post Nasal Drip, No Sore Throat, No Other Pulmonary: Dyspnea, Cough; No Pleuritic Chest Pain, No Other Cardiovascular: Edema; No: Chest Pain, Palpitations, Orthopnea, Paroxysmal Noc. Dyspnea, Lt Headedness, Other Gastrointestinal: No: Nausea, Vomiting, Abdominal Pain Genitourinary: No Dysuria Musculoskeletal: No: neck pain Neurological: Weakness; No: Confusion Objective Exam Vital Signs Vital Signs Date Time Temp Pulse Resp B/P (MAP) Pulse Ox O2 Delivery O2 Flow Rate FiO2 03/15/20 18:18 93 Vapotherm 30.00 100 03/15/20 11:59 36.3 03/15/20 08:00 80 18 134/62 (86) 96 Vapotherm 40.00 100.00 03/15/20 08:00 36.3 03/15/20 07:52 95 Vapotherm 40.00 100 03/15/20 07:10 93 Vapotherm 40.00 100 03/15/20 07:00 98 22 145/61 (89) 90 Vapotherm 40.00 100.00 03/15/20 07:00 83 03/15/20 06:00 92 26 141/67 (91) 91 Vapotherm 40.00 100.00 03/15/20 05:00 96 21 135/58 (83) 96 Vapotherm 40.00 100.00 03/15/20 04:00 83 19 144/64 (90) 95 Vapotherm 40.00 100.00 03/15/20 04:00 Vapotherm 40.00 100 03/15/20 03:00 87 35 141/63 (89) Vapotherm 40.00 100.00 03/15/20 02:00 92 24 125/59 (81) 91 NIV Bilevel 70.00 03/15/20 01:56 92 Vapotherm 40.00 100 03/15/20 01:00 85 4/27/20 01:00 85 26 140/64 (89) 92 NIV Bilevel 70.00 03/15/20 00:00 Vapotherm 40.00 100 03/15/20 00:00 85 18 139/63 (88) 89 NIV Bilevel 70.00 03/14/20 23:00 89 129/71 (90) Vapotherm 40.00 100.00 03/14/20 22:00 98 28 152/77 (102) 97 Vapotherm 40.00 100.00 03/14/20 21:19 95 Vapotherm 40.00 100 03/14/20 21:00 93 28 146/67 (93) 94 Vapotherm 40.00 100.00 I & O 03/15/20 07:00 Intake Total 2440 ml Output Total 2550 ml Balance -110 ml General Appearance: Mild Distress Eyes: Bilateral Eye Normal Inspection, Bilateral Eye PERRL, Bilateral Eye EOMI HEENT: PERRL/EOMI Neck: Full Range of Motion, Non Tender Respiratory: Chest Non Tender, Decreased Breath Sounds, Respiratory Distress, Rhonci Cardiovascular: Regular Rate, Rhythm Gastrointestinal: Normal Bowel Sounds, Non Tender, Soft Rectal: Deferred Genital/Rectal: Other (elkins in place) Back: No CVA Tenderness Extremity: Normal Range of Motion, Non Tender, Pedal Edema (trace) Neurologic/Psychiatric: Alert, Oriented x3, Normal Mood/Affect Skin: Warm/Dry Results Lab Laboratory Tests 03/14/20 20:40: Glucometer 219H 03/15/20 03:04: White Blood Count 4.2L, Red Blood Count 2.63L, Hemoglobin 8.7L, Hematocrit 27L, Mean Corpuscular Volume 103H, Mean Corpuscular Hemoglobin 33, Mean Corpuscular Hemoglobin Concent 32, Red Cell Distribution Width 22.5H, Platelet Count 9*L, Mean Platelet Volume 11.4H, Neutrophils (%) (Auto) 79H, Lymphocytes (%) (Auto) 11L, Monocytes (%) (Auto) 10, Eosinophils (%) (Auto) 0, Basophils (%) (Auto) 0, Neutrophils # (Auto) 3.3, Lymphocytes # (Auto) 0.5L, Monocytes # (Auto) 0.4, Eosinophils # (Auto) 0.0, Basophils # (Auto) 0.0, Sodium Level 141, Potassium Level 4.3, Chloride Level 101, Carbon Dioxide Level 29, Anion Gap 11, Blood Urea Nitrogen 51H, Creatinine 1.00, Estimat Glomerular Filtration Rate > 60, BUN/Creatinine Ratio 51, Glucose Level 121H, Calcium Level 7.9L, Phosphorus Level 4.8H, Magnesium Level 2.3 03/15/20 12:25: Lab Scanned Report Transfusion Reaction Form Microbiology 03/10/20 Urine Culture - Final, Complete NO GROWTH 03/09/20 Influenza Types A,B Antigen (TIANA) - Final, Complete 03/08/20 Blood Culture - Preliminary, Resulted Staph, Coag Neg (TRAINING AND DEVELOPMENT DIRECTOR) Assessment/Plan Assessment/Plan Admission Dx acute hypoxic respiratory failure AML pancytopenia Assessment and Plan 03/08/20- admitted to ICU for AHRF 03/09/20- Platelets and hgb have trended down and he received both transfusion today. Transitioned to HFNC from BiPAP- panculture. broad spectrum antibiotics. vanc/zosyn, levoquin. -diuresing. COVID-19 negative. 03/10/20- Hgb, platelets improved with transfusion- still on broad spectrum antibiotics. He is still on HFNC will try to titrate settings. replacing electrolytes. strep and legionella negative. 03/11/20- still working on respiratory status- he is on HFNC- he is getting steroids as well as antibiotics. monitor cbc 03/12/20- DNR now. Waiting 24hours with bipap and current care- if not better he wants to stop care and see what happens- he understands that he is likely to decompensate and . He would like to go home and . 03/15/20- placed on comfort care- will try to keep him comfortable and monitor in hospital- he would like the arm swelling to go down- will give bumex. Also feels like he is needing to have a bowel movement but his hemorrhoids are giving him pain and would like cream. remain inpatient comfort care. Problems: (1) Acute respiratory failure with hypoxia Assessment & Plan: respiratory therapy consult Dr. Lopes consult eICU following along. (2) AML (acute myeloblastic leukemia) (3) CAD (coronary artery disease), [place] coronary artery Assessment & Plan: s/p CABG 2017 (4) Hypertension Admission Dx acute hypoxic respiratory failure AML pancytopenia Clinical Quality Measures Admission Status Admission Dx acute hypoxic respiratory failure AML pancytopenia DVT/VTE Risk/Contraindication: Risk Factor Score Per Nursin RFS Level Per Nursing on Admit: 4+=Very High AISSATOU MIRAMONTES MD Mar 15, 2020 20:03
[2020-03-15] MEDS: HYDROCORTISONE 2.5% CREAM (ANUSOL-HC) 30 GM TOP SCH (20:05)
[2020-03-16] MEDS: CATHETER FLUSH 10 ML SYR IV SCH ×3 (05:58→22:08)
--- NOTE | 2020-03-16 08:15 | NUR ---
Visited with Jhony this morning. He is just finishing breakfast and says that the food tastes very good. He reports that he slept pretty good last night, but that his hemorrhoids are really bothering him. He reports that is having some anxiety. Noted that his respirations are increased et he is moaning with his breathing at times. Encouraged him to consider his comfort medications et he reports that he would like to have some to help with his breathing and pain. Notified his primary care nurse of his request. His Vapotherm is set at 35LPM with 90%FIO2 this a.m.
[2020-03-16] MEDS: morphine INJ 4 MG/ML 1 ML (VIAL/SYRINGE) IV PRN ×2 (08:23→17:05)
[2020-03-16] MEDS: HYDROCORTISONE 2.5% CREAM (ANUSOL-HC) 30 GM TOP SCH ×2 (08:24→19:23)
--- NOTE | 2020-03-16 16:12 | NUR ---
Pastoral care visit.
--- NOTE | 2020-03-16 17:15 | Progress Note ---
Subjective Subjective Date Seen by Provider: Mar 16, 2020 Time Seen by Provider: 08:55 He feels like he is breathing a little better and his arms are not as painful with diuresing more fluid off. He is in decent spirits Review of Systems General: No Chills, No Night Sweats; Fatigue; No Malaise, No Appetite, No Other HEENT: No Head Aches, No Visual Changes, No Eye Pain, No Ear Pain, No Dysphasia, No Sinus Congestion, No Post Nasal Drip, No Sore Throat, No Other Pulmonary: Dyspnea, Cough; No Pleuritic Chest Pain, No Other Cardiovascular: Edema; No: Chest Pain, Palpitations, Orthopnea, Paroxysmal Noc. Dyspnea, Lt Headedness, Other Gastrointestinal: No: Nausea, Vomiting, Abdominal Pain Genitourinary: No Dysuria Musculoskeletal: No: neck pain Neurological: Weakness; No: Confusion Objective Exam Vital Signs Vital Signs Date Time Temp Pulse Resp B/P (MAP) Pulse Ox O2 Delivery O2 Flow Rate FiO2 03/16/20 15:15 92 Vapotherm 30.00 90 03/16/20 11:14 92 Vapotherm 35.00 90 03/16/20 09:00 90 Vapotherm 35.00 03/16/20 07:08 90 Vapotherm 35.00 90 03/16/20 04:17 93 Vapotherm 30.00 90 03/16/20 01:06 94 Vapotherm 30.00 90 03/15/20 21:13 90 Vapotherm 30.00 100 03/15/20 20:10 Vapotherm 30.00 03/15/20 18:18 93 Vapotherm 30.00 100 I & O 03/16/20 07:00 Intake Total 1460 ml Output Total 3650 ml Balance -2190 ml General Appearance: Mild Distress Eyes: Bilateral Eye Normal Inspection, Bilateral Eye PERRL, Bilateral Eye EOMI HEENT: PERRL/EOMI Neck: Full Range of Motion, Non Tender Respiratory: Chest Non Tender, Decreased Breath Sounds, Respiratory Distress, Rhonci Cardiovascular: Regular Rate, Rhythm Gastrointestinal: Normal Bowel Sounds, Non Tender, Soft Rectal: Deferred Genital/Rectal: Other (elkins in place) Back: No CVA Tenderness Extremity: Normal Range of Motion, Non Tender, Pedal Edema (trace) Neurologic/Psychiatric: Alert, Oriented x3, Normal Mood/Affect Skin: Warm/Dry Results Lab Microbiology 03/10/20 Urine Culture - Final, Complete NO GROWTH 03/09/20 Influenza Types A,B Antigen (TIANA) - Final, Complete 03/08/20 Blood Culture - Final, Complete Staph, Coag Neg (PAPER TWISTER TENDER) Assessment/Plan Assessment/Plan Admission Dx acute hypoxic respiratory failure AML pancytopenia Assessment and Plan 03/08/20- admitted to ICU for AHRF 03/09/20- Platelets and hgb have trended down and he received both transfusion today. Transitioned to HFNC from BiPAP- panculture. broad spectrum antibiotics. vanc/zosyn, levoquin. -diuresing. COVID-19 negative. 03/10/20- Hgb, platelets improved with transfusion- still on broad spectrum antibiotics. He is still on HFNC will try to titrate settings. replacing electrolytes. strep and legionella negative. 03/11/20- still working on respiratory status- he is on HFNC- he is getting steroids as well as antibiotics. monitor cbc 03/12/20- DNR now. Waiting 24hours with bipap and current care- if not better he wants to stop care and see what happens- he understands that he is likely to decompensate and . He would like to go home and . 03/15/20- placed on comfort care- will try to keep him comfortable and monitor in hospital- he would like the arm swelling to go down- will give bumex. Also feels like he is needing to have a bowel movement but his hemorrhoids are giving him pain and would like cream. remain inpatient comfort care. 03/16/20- comfort care. Problems: (1) Acute respiratory failure with hypoxia Assessment & Plan: respiratory therapy consult Dr. Lopes consult eICU following along. (2) AML (acute myeloblastic leukemia) (3) CAD (coronary artery disease), [place] coronary artery Assessment & Plan: s/p CABG 2017 (4) Hypertension Admission Dx acute hypoxic respiratory failure AML pancytopenia Clinical Quality Measures Admission Status Admission Dx acute hypoxic respiratory failure AML pancytopenia DVT/VTE Risk/Contraindication: Risk Factor Score Per Nursin RFS Level Per Nursing on Admit: 4+=Very High AISSATOU MIRAMONTES MD Mar 16, 2020 17:15
--- NOTE | 2020-03-16 17:51 | NUR ---
Palliative Care Note: Patient reports that he is uncomfortable and feels nauseous. He is belching and has not been able to have a good bowel movement for several days. Prior to this he has been reporting how good the food tastes and has been eating well for his meals. He reports that he would like to have a bowel movement but just feels like he can't because of how much his hemorrhoids are hurting him and inability to get up to sit on a bedside commode. I talked with him about a suppository or an enema but he refuses and reports that would hurt too much. He is agreeable to take medication for nausea and for pain/air hunger. F/U with his primary care nurse et she is going to go visit with him too. After he receives these medications he has also agreed to turn to his left side to help promote comfort and relieve pressure to his buttocks.
[2020-03-17] MEDS: CATHETER FLUSH 10 ML SYR IV SCH ×2 (05:50→15:56)
[2020-03-17] MEDS: LORazepam INJ 2 MG/ML (ATIVAN) VIAL IVP PRN (08:39)
[2020-03-17] MEDS: morphine INJ 4 MG/ML 1 ML (VIAL/SYRINGE) IV PRN (10:16)
[2020-03-17] MEDS: HYDROCORTISONE 2.5% CREAM (ANUSOL-HC) 30 GM TOP SCH (10:20)
[2020-03-17] MEDS ORDERED: morphine INJ 4 MG/ML 1 ML (VIAL/SYRINGE) IV PRN (11:45)
--- NOTE | 2020-03-17 13:30 | NUR ---
Patient has at this time. Witnessed by CHINA Torres this nurse. His loved one is at bedside et indicates that he wants us to use [facility]. Dr. Chilel notified of TOD. Pastoral Care Vincent notified of TOD. Vincent is coming up to offer support to Susana.
--- NOTE | 2020-03-17 13:59 | Physician Query Clarification ---
"Physician Query-General Query to Physician: The medical record reflects the following clinical scenario: History/Risk factors: AML, pancytopenia Clinical Findings: Admission CXR extensive new infiltrates, Low 02 Sat Present on admission Treatment: IV ABX X 5 Days, Multiple follow up CXRs Question: What condition best reflects the above clinical scenario? Please document response in the Progress notes or Discharge Summary. 1. Respiratory failure due to Pneumonia PRESENT ON ADMISSION 2. Respiratory failure (as currently documented) 3. Other , with explanation of the clinical findings 4. Clinically undetermined, no explanation for the clinical findings Please remember a lack of response to the above will prompt a phone page by CDI/coding staff In responding to this query, please exercise your independent professional judgment. The purpose of this communication is to more accurately reflect the complexity of your patients condition. The fact that a question is asked does not imply that any particular answer is desired or expected. Thank you for timely response to this clarification. Lashawn Jeffers, MSN, RN RN Specialist-Clinical Doc Improvement CD -Health Info [facility] [address] [facility] t: [phone] | f: [phone] If you are unable to reach me at my extension, I may be working from home. Blue menendez contact me at [phone] PHYSICIAN RESPONSE: Based on the clinical findings in the record, please respond to the query above on this document as an addendum. Physician Response: Physician Response 1 - pneumonia was treated but given his AML and respiratory decline- he did not have the reserve to make a recovery. If you have questions please contact: Prune Washer: Ext: Thank you for your time and cooperation. Clinical Seismograph Chief/Prune Washer This is a permanent part of the medical r ecord LASHAWN JEFFERS Mar 17, 2020 13:59 AISSATOU MIRAMONTES MD Mar 17, 2020 18:15"
--- NOTE | 2020-03-17 14:15 | NUR ---
[facility] contacted at this time.
--- NOTE | 2020-03-17 15:58 | NUR ---
patient discharged to [facility]
--- NOTE | 2020-03-17 18:16 | Discharge Summary ---
Discharge Summary Hospital Course Was the Problem List Reviewed?: Yes Problems/Dx: (1) Acute respiratory failure with hypoxia (2) AML (acute myeloblastic leukemia) (3) CAD (coronary artery disease), [place] coronary artery (4) Hypertension Status: Chronic Hospital Course Date of Admission: Mar 08, 2020 at 13:20 Admission Diagnosis : Family Physician/Provider: Deny Miramontes MD Date of Discharge: 03/17/20 Discharge Diagnosis: [ ] Hospital Course: [ ] Labs and Pending Lab Test: Microbiology 03/10/20 Urine Culture - Final, Complete NO GROWTH 03/09/20 Influenza Types A,B Antigen (TIANA) - Final, Complete 03/08/20 Blood Culture - Final, Complete Staph, Coag Neg (INVESTIGATIVE ASSISTANT) Home Meds Active Reported Flomax (Tamsulosin HCl) 0.4 Mg Cap 0.4 Mg PO DAILY Acyclovir 200 Mg Capsule 800 Mg PO Q12H TAKES 4 (200MG) CAPS EVERY 12 HOURS Allopurinol 300 Mg Tablet 300 Mg PO DAILY Amlodipine Besylate 10 Mg Tablet 5 Mg PO DAILY TAKES OF A 10MG TABLET Levaquin (Levofloxacin) 750 Mg Tablet 750 Mg PO DAILY W/ FOOD 30 Days FILLED 02-25-2020 #30 Posaconazole 100 Mg Tablet.dr 300 Mg PO DAILY W/FOOD TAKES 3 (100MG) TABLETS DAILY Metoprolol Succinate 50 Mg Tab.er.24h 25 Mg PO DAILY TAKES OF A 50MG TAB Discharge Physical Examination Vital Signs Vital Signs Date Time Temp Pulse Resp B/P (MAP) Pulse Ox O2 Delivery O2 Flow Rate FiO2 03/17/20 09:00 Vapotherm 40.00 100 03/17/20 07:26 80 03/15/20 11:59 36.3 03/15/20 08:00 80 18 134/62 (86) General Appearance: Other () Allergies: Coded Allergies: No Known Drug Allergies (Unverified , 04/09/13) Discharge Summary Date of Admission Mar 08, 2020 at 13:20 Date of Discharge Mar 17, 2020 at 16:00 Comfort Measures/ End of Life Care: Comfort Measures, Pallative Care, Hospice (Hospital) Discharge Diagnosis (1) Acute respiratory failure with hypoxia Assessment & Plan: respiratory therapy consult Dr. Lopes consult eICU following along. (2) AML (acute myeloblastic leukemia) (3) CAD (coronary artery disease), [place] coronary artery Assessment & Plan: s/p CABG 2018 (4) Hypertension Status: Chronic Clinical Quality Measures DVT/VTE Risk/Contraindication: Risk Factor Score Per Nursin RFS Level Per Nursing on Admit: 4+=Very High DENY MIRAMONTES MD Mar 17, 2020 18:16
== END 2020-03-17 16:00 | disposition expired | DRG 189 ==
LOC: ER 11:18 → ICU 13:20 → 4TH 03-15 10:00
PROVIDERS: ADMIT Family Medicine; ATTEND Family Medicine
DX: J96.21 Acute and chronic respiratory failure with hypoxia (principal); D61.810 Antineoplastic chemotherapy induced pancytopenia; D61.818 Other pancytopenia; J18.9 Pneumonia, unspecified organism; I21.4 Non-ST elevation (NSTEMI) myocardial infarction; C93.00 Acute monoblastic/monocytic leukemia, not having achieved remission; J44.0 Chronic obstructive pulmonary disease with (acute) lower respiratory infection; Z66 Do not resuscitate; Z51.5 Encounter for palliative care; I48.91 Unspecified atrial fibrillation; I11.0 Hypertensive heart disease with heart failure; I50.9 Heart failure, unspecified; I25.119 Atherosclerotic heart disease of native coronary artery with unspecified angina pectoris; I35.0 Nonrheumatic aortic (valve) stenosis; E87.6 Hypokalemia; M06.9 Rheumatoid arthritis, unspecified; J30.2 Other seasonal allergic rhinitis; M19.041 Primary osteoarthritis, right hand; M19.042 Primary osteoarthritis, left hand; L71.9 Rosacea, unspecified; R79.89 Other specified abnormal findings of blood chemistry; Z95.1 Presence of aortocoronary bypass graft; Z87.891 Personal history of nicotine dependence; Z79.899 Other long term (current) drug therapy; Z90.49 Acquired absence of other specified parts of digestive tract; Z20.828 Contact with and (suspected) exposure to other viral communicable diseases
CPT/HCPCS: 36415; 36600; 71045; 80048; 80053; 80202; 81000; 82805; 82962; 83605; 83735; 83880; 84100; 84484; 85007; 85025; 85027; 85610; 85730; 86850; 86900; 86901; 86920; 87040; 87077; 87081; 87088; 87449; 87635; 87804; 87899; 93306; 94640; 94660; 96365; 96375